=== PATIENT | female | born 1940 | race Caucasian/White ===

== ENCOUNTER 2016-11-30 12:25 | Observation (INO) | payer MEDICARE ==
[2016-11-30] MEDS ORDERED: Zofran 4 MG/2 ML VIAL IV PRN (12:28)
[2016-11-30 12:59] LABS: BASOPHIL % 0.2 % (0.0-0.4); Eosinophil % 1.5 % (0.00-5.0); Granulocytes % 67.8 % (36.0-66.0); Lymphocytes % 23.6 % (24.0-44.0); Mean Cell Volume 89.3 fl (78-100); Mean Corpuscular Hemoglobin 29.4 pg (26-32); Mean Platelet Volume 9.6 fl (6-9.5); Monocytes % 6.9 % (0.0-12.0); Platelet Count 235 K/mm3 (150-450); Red Blood Count 4.12 M/mm3 (4.1-5.4); Red Cell Distribution Width 15.5 % (11.5-14.0); White Blood Count 14.3 K/mm3 (4.0-10.5)
[2016-11-30 13:16] LABS: ANION GAP 11.4 MEQ/L (5-15); BILIRUBIN,TOTAL 0.8 mg/dL (0.2-1.0); Potassium 3.8 mEq/L (3.5-5.1); Total Protein 8.2 gm/dL (6.4-8.2)
[2016-11-30 13:19] LABS: LIPASE 163 U/L (73-393)
[2016-11-30 13:20] LABS: TROPONIN < 0.017 ng/ml (0.000-0.056)
[2016-11-30 13:51] LABS: Collection Type CLEAN CATCH
[2016-11-30 13:52] LABS: COMPLETE URINE MICROSCOPIC? YES
[2016-11-30] MEDS: Sodium Chloride 0.9% 1000 ML 1,000 ML IV SCH (14:03)
[2016-11-30] MEDS: MORPHINE SULFATE 2 MG INJ IV PRN ×3 (14:03→18:31)
[2016-11-30 15:23] LABS: Epithelial Cells MANY /HPF (FEW)
[2016-11-30 15:24] LABS: Bacteria MODERATE /HPF (NEGATIVE)
[2016-11-30] MEDS: FLAGYL 500 MG IVPB 100 ML IV SCH ×2 (15:37→22:13)
[2016-11-30] MEDS: BUMEX 1 MG PO SCH (17:14)
--- NOTE | 2016-11-30 19:59 | XRAY ---
Indication: Right lower quadrant pain. Constipation. Multiple contiguous axial images obtained through the abdomen and pelvis without contrast as ordered. Comparison: None Minimal left lung base atelectasis/scarring. Right lung base clear. Heart is not enlarged. Noncontrasted stomach and bowel loops appear nonobstructed. There is intraluminal hyperdensity in the distal small bowel either from barium study versus ingested medication. Normal appendix. Moderate diffuse scattered colonic fecal debris. Also scattered diverticulosis without diverticulitis. No free fluid/air. Previous hysterectomy. 1 cm left lower pole renal cyst and calcified splenic granuloma. Remaining liver, gallbladder, pancreas, spleen, adrenal glands, kidneys, ureters, and bladder appear unremarkable for noncontrast exam. Mild aortoiliac calcifications without AAA. Osseous structures intact with mild osteopenia and minimal degenerative changes throughout the spine. Impression: 1. Fecal stasis without obstruction. Diffuse diverticulosis without diverticulitis. 2. Left renal cyst. 3. No acute intra-abdominal/pelvic abnormalities on this noncontrast exam. CTDI 22.77
[2016-11-30] MEDS: SUBLIMAZE 100 MCG/2 ML IV PRN (20:12)
[2016-11-30] MEDS: Klor Con 10 MEQ PO SCH (22:13)
[2016-11-30] MEDS: MAG-OX 400 PO SCH (22:13)
[2016-12-01] MEDS: Sodium Chloride 0.9% 1000 ML 1,000 ML IV SCH ×3 (01:44→22:54)
[2016-12-01] MEDS: SUBLIMAZE 100 MCG/2 ML IV PRN ×4 (02:27→21:17)
[2016-12-01] MEDS: FLAGYL 500 MG IVPB 100 ML IV SCH ×3 (06:07→21:17)
[2016-12-01] MEDS: MAG-OX 400 PO SCH ×2 (08:31→21:17)
[2016-12-01] MEDS: Klor Con 10 MEQ PO SCH ×2 (08:31→21:17)
[2016-12-01] MEDS: BUMEX 1 MG PO SCH ×2 (08:31→17:13)
[2016-12-01] MEDS: Glucotrol Xl 2.5 MG PO SCH (08:31)
[2016-12-01] MEDS: Protonix 40MG Tablet PO SCH (08:40)
[2016-12-01] MEDS: Colace 100 MG PO SCH (08:40)
[2016-12-01] MEDS: SYNTHROID 100 MCG PO SCH (08:40)
[2016-12-01] MEDS: ELIQUIS PO SCH (08:40)
[2016-12-01] MEDS: SYNTHROID 25 MCG PO SCH (08:40)
[2016-12-01] MEDS: CLARITIN 10 MG PO SCH (08:40)
[2016-12-01] MEDS: ZYLOPRIM 300 MG PO SCH (08:40)
[2016-12-01] MEDS: Zaroxolyn 2.5 MG PO SCH (08:41)
[2016-12-01] MEDS: Zestril 10 MG PO SCH (08:42)
[2016-12-01] MEDS ORDERED: NON-FORMULARY ITEM (Docusate Sodium [Stool Softener] 50 MG) PO SCH (10:00)
[2016-12-01] MEDS ORDERED: NON-FORMULARY ITEM (Levothyroxine Sodium [Synthroid] 200 MCG) PO SCH (10:00)
[2016-12-01] MEDS ORDERED: NON-FORMULARY ITEM (Apixaban [Eliquis] 2.5 MG) PO SCH (10:00)
--- NOTE | 2016-12-01 17:19 | PCM.HP ---
History of Present Illness - Chief Complaint Chief Complaint: c/o abdominal pain Date: 11/30/16 History of Present Illness: is a 76 year old female.was admitted with right upper quadrant abdominal pain - Review of Systems Constitutional: No Fever, No Chills Eyes: No Symptoms Ears, Nose, & Throat: No Symptoms Respiratory: No Cough, No Short Of Breath Cardiac: No Chest Pain, No Edema, No Syncope Abdominal/Gastrointestinal: Abdominal Pain, No Nausea, No Vomiting, No Diarrhea Genitourinary Symptoms: No Dysuria Musculoskeletal: No Back Pain, No Neck Pain Skin: No Rash Neurological: No Dizziness, No Focal Weakness, No Sensory Changes Psychological: No Symptoms Endocrine: No Symptoms Hematologic/Lymphatic: No Symptoms Immunological/Allergic: No Symptoms Medications & Allergies Home Medications: Home Medication List Allopurinol 300 mg [Zyloprim 300 mg] 300 mg PO DAILY 11/30/16 [History Confirmed 11/30/16] Apixaban [Eliquis] 2.5 mg PO DAILY 11/30/16 [History Confirmed 11/30/16] Bumetanide 1 mg [Bumex 1 mg] 1 mg PO BID 11/30/16 [History Confirmed 11/30] Docusate Sodium [Stool Softener] 50 mg PO DAILY 11/30/16 [History Confirmed ] Glipizide 2.5 mg [Glucotrol Xl 2.5 MG] 2.5 mg PO DAILY 11/30/16 [History Confirmed 11/30/16] Levothyroxine Sodium [Synthroid] 25 mcg PO DAILY 11/30/16 [History Confirmed ] Levothyroxine Sodium [Synthroid] 200 mcg PO DAILY 11/30/16 [History Confirmed ] Lisinopril 10 mg [Zestril 10 MG] 10 mg PO DAILY 11/30/16 [History Confirmed 11/30/16] Loratadine 10 mg [Claritin 10 mg] 10 mg PO DAILY 11/30/16 [History Confirmed 11/30/16] Magnesium Oxide 400 mg [Mag-Ox 400] 400 mg PO BID 11/30/16 [History Confirmed 11/30/16] Metolazone 2.5 mg [Zaroxolyn 2.5 MG] 2.5 mg PO DAILY 11/30/16 [History Confirmed 11/30/16] PANTOPRAZOLE 40 mg Tablet [Protonix 40MG Tablet] 40 mg PO DAILY 11/30/16 [ History Confirmed 11/30/16] Potassium Chloride [Klor-Con 10] 10 meq PO BID 11/30/16 [History Confirmed 11/30] Allergies/Adverse Reactions: Allergies Allergy/AdvReac Type Severity Reaction Status Date / Time ofloxacin [From Floxin] Allergy Verified 03/11/16 01:02 Sulfa (Sulfonamide Allergy Verified 03/11/16 01:02 Antibiotics) [Sulfa(Sulfonamide Antibiotics)] - Past Medical History Past Medical History: Yes Neurological History: Epilepsy, Peripheral Neuropathy ENT History: Cataracts, Other Cardiac History: Congestive Heart Failure, Hypertension, Myocardial Infarction ( [place]) Respiratory History: CHF, COPD, Emphysema, Pulmonary Embolism Endocrine Medical History: Diabetes Type II, Hypothyroidism Musculoskelatal History: Arthritis, Osteoarthritis GI Medical History: Diverticulosis, Hemorrhoids, Hernia History: Renal Disease Pyscho-Social History: No Pertinent History Reproductive Disorders: No Pertinent History Comment: 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 - Female History Are you now?: No - Past Surgical History Past Surgical History: Yes Neuro Surgical History: No Pertinent History Cardiac History: Cardiac Catheterization Respiratory Surgery: No Pertinent History GI Surgical History: No Pertinent History Genitourinary Surgical Hx: No Pertinent History Musculskeletal Surgical Hx: No Pertinent History Female Surgical History: Hysterectomy, Lumpectomy Other Surgical History: breast tumor removed, tumor removed from back benign, 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 - Social History Smoking Status: Never smoker Exposure to second hand smoke: Yes Alcohol: None Drug Use: none - Physical Exam Vital Signs: Vital Signs - 24 hr Temp Pulse Resp BP Pulse Ox 12/01/16 16:00 98.4 F 76 20 120/58 97 12/01/16 12:00 99.3 F 78 20 133/63 96 12/01/16 07:09 98.6 F 82 20 123/56 95 12/01/16 04:00 99.1 F 80 18 119/56 98 11/30/16 23:44 98.8 F 81 20 126/63 97 11/30/16 20:00 98.9 F 82 20 127/58 98 General Appearance: no apparent distress, alert Neurologic Exam: alert, oriented x 3, cooperative, normal mood/affect, nml cerebellar function, nml station & gait, sensation nml, No motor deficits Eye Exam: PERRL/EOMI, eyes nml inspection Ears, Nose, Throat Exam: normal ENT inspection, TMs normal, pharynx normal, moist mucous membranes Neck Exam: normal inspection, non-tender, supple, full range of motion Respiratory Exam: normal breath sounds, lungs clear, No respiratory distress Cardiovascular Exam: regular rate/rhythm, normal heart sounds, normal peripheral pulses Gastrointestinal/Abdomen Exam: normal bowel sounds, tenderness, No mass Back Exam: normal inspection, normal range of motion, No CVA tenderness, No vertebral tenderness Extremity Exam: normal inspection, normal range of motion, pelvis stable Skin Exam: normal color, warm, dry, No rash Lymphatic Exam: No adenopathy Results - Labs Lab/Micro Results: Accuchecks Date 12/01/16 Date 12/01/16 Date 12/01/16 Date 11/30/16 Time 16:30 Time 11:30 Time 07:00 Time 22:00 Accucheck Value: 92 Accucheck Value: 157 Accucheck Value: 124 Accucheck Value: 124 Lab Results-Last 24 Hours 11/30/16 11/30/16 Range/Units 12:40 12:40 WBC 14.3 H (4.0-10.5) K/mm3 RBC 4.12 (4.1-5.4) M/mm3 Hgb 12.1 (12.0-16.0) gm/dl Hct 36.8 (35-47) % MCV 89.3 (78-100) fl MCH 29.4 (26-32) pg MCHC 32.9 (32-36) g/dl RDW 15.5 H (11.5-14.0) % Plt Count 235 (150-450) K/mm3 MPV 9.6 H (6-9.5) fl Gran % 67.8 H (36.0-66.0) % Lymphocytes % 23.6 L (24.0-44.0) % Monocytes % 6.9 (0.0-12.0) % Eosinophils % 1.5 (0.00-5.0) % Basophils % 0.2 (0.0-0.4) % Basophils # 0.03 (0-0.4) Sodium 137 (136-145) mEq/L Potassium 3.8 (3.5-5.1) mEq/L Chloride 96 L (98-107) mEq/L Carbon Dioxide 33.0 H (21-32) mEq/L Anion Gap 11.4 (5-15) MEQ/L BUN 32 H (9-20) mg/dL Creatinine 1.55 H (0.55-1.30) mg/dl Estimated GFR 34 ML/MIN Glucose 132 H (70-110) MG/DL Calcium 10.5 H (8.5-10.1) mg/dL Total Bilirubin 0.8 (0.2-1.0) mg/dL AST 19 (15-37) U/L ALT 14 (12-78) U/L Alkaline Phosphatase 76 (46-116) U/L Serum Total Protein 8.2 (6.4-8.2) gm/dL Albumin 4.0 (3.4-5.0) g/dL Accuchecks Date 12/01/16 Date 12/01/16 Date 12/01/16 Date 11/30/16 Time 16:30 Time 11:30 Time 07:00 Time 22:00 Accucheck Value: 92 Accucheck Value: 157 Accucheck Value: 124 Accucheck Value: 124 - Radiology Impressions Radiology Exams & Impressions: Radiology Procedures Category Date Time Status ABDOMEN AND PELVIS W/0 CONTRAS [CT] Stat Exams 11/30/16 12:28 Completed GALLBLADDER [US] Urgent Exams 12/02/16 13:27 Ordered Assessment/Plan (1) Abdominal pain, acute, right upper quadrant Current Visit: Yes Status: Acute Code(s): R10.11 - RIGHT UPPER QUADRANT PAIN (2) RLQ abdominal pain Current Visit: Yes Status: Acute (3) Diabetic neuropathy associated with type 2 diabetes mellitus Current Visit: No Status: Chronic Qualifiers: Diabetes mellitus complication detail: diabetic polyneuropathy Qualified Code(s): E11.42 - Type 2 diabetes mellitus with diabetic polyneuropathy Code(s): E11.40 - TYPE 2 DIABETES MELLITUS WITH DIABETIC NEUROPATHY, UNSP
--- NOTE | 2016-12-01 17:23 | PCM.NOTE ---
Date and Time: 12/01/16 1722 Subjective Assessment: abdominal pain little better - Review of Systems Constitutional: No Fever, No Chills Eyes: No Symptoms Ears, Nose, & Throat: No Symptoms Respiratory: No Cough, No Short Of Breath Cardiac: No Chest Pain, No Edema, No Syncope Abdominal/Gastrointestinal: Abdominal Pain, No Nausea, No Vomiting, No Diarrhea Genitourinary Symptoms: No Dysuria Musculoskeletal: No Back Pain, No Neck Pain Skin: No Rash Neurological: No Dizziness, No Focal Weakness, No Sensory Changes Psychological: No Symptoms Endocrine: No Symptoms Hematologic/Lymphatic: No Symptoms Immunological/Allergic: No Symptoms Objective Exam General Appearance: no apparent distress, alert Neurologic Exam: alert, oriented x 3, cooperative, normal mood/affect, nml cerebellar function, sensation nml, No motor deficits Skin Exam: normal color, warm, dry Eye Exam: PERRL, EOMI, eyes nml inspection Ears, Nose, Throat Exam: normal ENT inspection, pharynx normal, moist mucous membranes Neck Exam: normal inspection, non-tender, supple, full range of motion Respiratory Exam: normal breath sounds, lungs clear, No respiratory distress Cardiovascular Exam: regular rate/rhythm, normal heart sounds Gastrointestinal/Abdomen Exam: soft, tenderness, No mass Extremity Exam: normal inspection, normal range of motion Back Exam: normal inspection, normal range of motion, No CVA tenderness, No vertebral tenderness Pelvic Exam: deferred Rectal Exam: deferred OBJECTIVE DATA Vital Signs: Vital Signs - 24 hr Temp Pulse Resp BP Pulse Ox 12/01/16 16:00 98.4 F 76 20 120/58 97 12/01/16 12:00 99.3 F 78 20 133/63 96 12/01/16 07:09 98.6 F 82 20 123/56 95 12/01/16 04:00 99.1 F 80 18 119/56 98 11/30/16 23:44 98.8 F 81 20 126/63 97 11/30/16 20:00 98.9 F 82 20 127/58 98 Pain Assessment - Last Documented Pain Intensity 2 Pain Scale Used 0-10 Pain Scale Intake and Output: Intake & Output 11/29/16 11/30/16 12/01/16 12/02/16 11:59 11:59 11:59 11:59 Intake Total 2757 480 Output Total 1100 Balance 1657 480 Weight 86.137 kg Lab Results: Accuchecks Date 12/01/16 Date 12/01/16 Date 12/01/16 Date 11/30/16 Time 16:30 Time 11:30 Time 07:00 Time 22:00 Accucheck Value: 92 Accucheck Value: 157 Accucheck Value: 124 Accucheck Value: 124 Lab Results-Last 24 Hours 11/30/16 11/30/16 Range/Units 12:40 12:40 WBC 14.3 H (4.0-10.5) K/mm3 RBC 4.12 (4.1-5.4) M/mm3 Hgb 12.1 (12.0-16.0) gm/dl Hct 36.8 (35-47) % MCV 89.3 (78-100) fl MCH 29.4 (26-32) pg MCHC 32.9 (32-36) g/dl RDW 15.5 H (11.5-14.0) % Plt Count 235 (150-450) K/mm3 MPV 9.6 H (6-9.5) fl Gran % 67.8 H (36.0-66.0) % Lymphocytes % 23.6 L (24.0-44.0) % Monocytes % 6.9 (0.0-12.0) % Eosinophils % 1.5 (0.00-5.0) % Basophils % 0.2 (0.0-0.4) % Basophils # 0.03 (0-0.4) Sodium 137 (136-145) mEq/L Potassium 3.8 (3.5-5.1) mEq/L Chloride 96 L (98-107) mEq/L Carbon Dioxide 33.0 H (21-32) mEq/L Anion Gap 11.4 (5-15) MEQ/L BUN 32 H (9-20) mg/dL Creatinine 1.55 H (0.55-1.30) mg/dl Estimated GFR 34 ML/MIN Glucose 132 H (70-110) MG/DL Calcium 10.5 H (8.5-10.1) mg/dL Total Bilirubin 0.8 (0.2-1.0) mg/dL AST 19 (15-37) U/L ALT 14 (12-78) U/L Alkaline Phosphatase 76 (46-116) U/L Serum Total Protein 8.2 (6.4-8.2) gm/dL Albumin 4.0 (3.4-5.0) g/dL Radiology Exams: Radiology Procedures Category Date Time Status ABDOMEN AND PELVIS W/0 CONTRAS [CT] Stat Exams 11/30/16 12:28 Completed GALLBLADDER [US] Urgent Exams 12/02/16 13:27 Ordered Multi-Disciplinary Progress Notes: Multi-Disciplinary Progress Notes 12/01/16 02:21 Respiratory Note by William Lam EKG WAS DONE ON DAY SHIFT 11/30/16 FOR THIS PT BUT AN ORDER WAS NOT ENTERED. I FOUND THE ERROR WHILE DOING CHARGES ON 12/01/16. I PLACED AN ORDER AND COMPLETED IT SO A CHARGE WOULD DROP. Initialized on 12/01/16 02:21 - END OF NOTE Assessment/Plan (1) Abdominal pain, acute, right upper quadrant Current Visit: Yes Status: Acute Assessment & Plan: improving Chief Complaint Diagnosis c/o abdominal pain Admission Date Date 11/30/16 Allergies Allergy/AdvReac Type Severity Reaction Status Date / Time ofloxacin [From Floxin] Allergy Verified 03/11/16 01:02 Sulfa (Sulfonamide Allergy Verified 03/11/16 01:02 Antibiotics) [Sulfa(Sulfonamide Antibiotics)] Vital Signs (Last 24 hours) Temp Pulse Resp BP Pulse Ox 12/01/16 16:00 98.4 F 76 20 120/58 97 12/01/16 12:00 99.3 F 78 20 133/63 96 12/01/16 07:09 98.6 F 82 20 123/56 95 12/01/16 04:00 99.1 F 80 18 119/56 98 11/30/16 23:44 98.8 F 81 20 126/63 97 11/30/16 20:00 98.9 F 82 20 127/58 98 Home Medications Medication Instructions Recorded Confirmed Last Taken Type Allopurinol 300 mg [Zyloprim 300 mg PO DAILY 11/30/16 11/30/16 11/30/16 History 300 mg] Apixaban [Eliquis] 2.5 mg PO DAILY 11/30/16 11/30/16 11/30/16 History Bumetanide 1 mg [Bumex 1 mg] 1 mg PO BID 11/30/16 11/30/16 11/30/16 History Docusate Sodium [Stool Softener] 50 mg PO DAILY 11/30/16 11/30/16 11/30/16 History Glipizide 2.5 mg [Glucotrol Xl 2.5 mg PO DAILY 11/30/16 11/30/16 11/30/16 History 2.5 MG] Levothyroxine Sodium [Synthroid] 25 mcg PO DAILY 11/30/16 11/30/16 11/30/16 History Levothyroxine Sodium [Synthroid] 200 mcg PO DAILY 11/30/16 11/30/16 11/30/16 History Lisinopril 10 mg [Zestril 10 10 mg PO DAILY 11/30/16 11/30/16 11/30/16 History MG] Loratadine 10 mg [Claritin 10 10 mg PO DAILY 11/30/16 11/30/16 11/30/16 History mg] Magnesium Oxide 400 mg [Mag-Ox 400 mg PO BID 11/30/16 11/30/16 11/30/16 History 400] Metolazone 2.5 mg [Zaroxolyn 2.5 2.5 mg PO DAILY 11/30/16 11/30/16 11/30/16 History MG] PANTOPRAZOLE 40 mg Tablet 40 mg PO DAILY 11/30/16 11/30/16 11/30/16 History [Protonix 40MG Tablet] Potassium Chloride [Klor-Con 10] 10 meq PO BID 11/30/16 11/30/16 11/30/16 History Current Medications Generic Name Dose Route Start Last Admin Trade Name Freq PRN Reason Stop Dose Admin Allopurinol 300 mg 12/01/16 10:00 12/01/16 08:40 Zyloprim 300 Mg PO 12/31/16 09:59 300 mg DAILY NKECHI Administration Apixaban 2.5 mg 12/01/16 10:00 12/01/16 08:40 Eliquis PO 12/31/16 09:59 2.5 mg DAILY NKECHI Administration Bumetanide 1 mg 11/30/16 17:00 12/01/16 17:13 Bumex 1 Mg PO 12/30/16 16:59 1 mg BID DIURETIC NKECHI Administration Docusate Sodium 100 mg 12/01/16 10:00 12/01/16 08:40 Colace 100 Mg PO 12/31/16 09:59 100 mg DAILY NKECHI Administration Fentanyl Citrate 50 mcg 11/30/16 20:04 12/01/16 14:56 Sublimaze 100 Mcg/2 Ml IV 12/05/16 20:03 50 mcg Q6H PRN PRN Administration PAIN Glipizide 2.5 mg 12/01/16 10:00 12/01/16 08:31 Glucotrol Xl 2.5 Mg PO 12/31/16 09:59 2.5 mg DAILY NKECHI Administration Sodium Chloride 1,000 mls @ 100 mls/hr 11/30/16 12:30 12/01/16 12:03 Sodium Chloride 0.9% 1000 Ml IV 12/30/16 12:29 100 mls/hr .Q10H NKECHI Administration Metronidazole 100 mls @ 100 mls/hr 11/30/16 16:00 12/01/16 14:11 Flagyl 500 Mg Ivpb IV 12/30/16 15:59 100 mls/hr Q8HT NKECHI Administration Levothyroxine Sodium 25 mcg 12/01/16 10:00 12/01/16 08:40 Synthroid 25 Mcg PO 12/31/16 09:59 25 mcg DAILY NKECHI Administration Levothyroxine Sodium 200 mcg 12/01/16 10:00 12/01/16 08:40 Synthroid 100 Mcg PO 12/31/16 09:59 200 mcg DAILY NKECHI Administration Lisinopril 10 mg 12/01/16 10:00 12/01/16 08:42 Zestril 10 Mg PO 12/31/16 09:59 10 mg DAILY NKECHI Administration Loratadine 10 mg 12/01/16 10:00 12/01/16 08:40 Claritin 10 Mg PO 12/31/16 09:59 10 mg DAILY NKECHI Administration Magnesium Oxide 400 mg 11/30/16 22:00 12/01/16 08:31 Mag-Ox 400 PO 12/30/16 21:59 400 mg BID NKECHI Administration Metolazone 2.5 mg 12/01/16 10:00 12/01/16 08:41 Zaroxolyn 2.5 Mg PO 12/31/16 09:59 2.5 mg DAILY NEKCHI Administration Ondansetron HCl 4 mg 11/30/16 12:28 Zofran 4 Mg/2 Ml Vial IV 12/30/16 12:27 Q4H PRN PRN NAUSEA/VOMITING Pantoprazole Sodium 40 mg 12/01/16 10:00 12/01/16 08:40 Protonix 40mg Tablet PO 12/31/16 09:59 40 mg DAILY NKECHI Administration Potassium Chloride 10 meq 11/30/16 22:00 12/01/16 08:31 Klor Con 10 Meq PO 12/30/16 21:59 10 meq BID NKECHI Administration Discontinued Medications Generic Name Dose Route Start Last Admin Trade Name Freq PRN Reason Stop Dose Admin Morphine Sulfate 2 mg 11/30/16 12:28 11/30/16 18:31 Morphine Sulfate 2 Mg Inj IV 12/05/16 12:27 2 mg Q2H PRN PRN Administration PAIN Intake & Output (Last 24 hours) 11/29/16 11/30/16 12/01/16 12/02/16 11:59 11:59 11:59 11:59 Intake Total 2757 480 Output Total 1100 Balance 1657 480 Weight 86.137 kg Microbiology Results (Last 24 hours) 11/30/16 12:45 Blood - Pending 11/30/16 12:45 Blood Blood Culture - Pending 11/30/16 12:40 Blood - Pending 11/30/16 12:40 Blood Blood Culture - Pending Laboratory Results (Last 24 hours) 11/30/16 11/30/16 12:40 12:40 WBC 14.3 H RBC 4.12 Hgb 12.1 Hct 36.8 MCV 89.3 MCH 29.4 MCHC 32.9 RDW 15.5 H Plt Count 235 MPV 9.6 H Gran % 67.8 H Lymphocytes % 23.6 L Monocytes % 6.9 Eosinophils % 1.5 Basophils % 0.2 Basophils # 0.03 Sodium 137 Potassium 3.8 Chloride 96 L Carbon Dioxide 33.0 H Anion Gap 11.4 BUN 32 H Creatinine 1.55 H Estimated GFR 34 Glucose 132 H Calcium 10.5 H Total Bilirubin 0.8 AST 19 ALT 14 Alkaline Phosphatase 76 Serum Total Protein 8.2 Albumin 4.0 Orders (Last 24 hours) Category Date Time Status Consult Surgery ROUTINE Cons 12/01/16 13:24 Active Clear Liquid Diet 12/01/16 Dinner Active NPO Diet 12/02/16 00:01 Active GALLBLADDER [US] Urgent Exams 12/02/16 13:27 Ordered Allopurinol 300 mg [Zyloprim 300 mg] Med 12/01/16 10:00 Active 300 mg PO DAILY Apixaban [Eliquis] Med 12/01/16 10:00 Active 2.5 mg PO DAILY Bumetanide 1 mg [Bumex 1 mg] Med 11/30/16 17:00 Active 1 mg PO BID DIURETIC Docusate Sodium 100 mg [Colace 100 MG] Med 12/01/16 10:00 Active 100 mg PO DAILY Fentanyl Citrate 100 Mcg/2 ml* [Sublimaze 100 Mcg/2 ml* Med 11/30/16 20:04 Active ] 50 mcg IV Q6H PRN PRN Glipizide 2.5 mg [Glucotrol Xl 2.5 MG] Med 12/01/16 10:00 Active 2.5 mg PO DAILY Levothyroxine Sodium 100 Mcg [Synthroid 100 Mcg] Med 12/01/16 10:00 Active 200 mcg PO DAILY Levothyroxine Sodium 25 Mcg [Synthroid 25 Mcg] Med 12/01/16 10:00 Active 25 mcg PO DAILY Lisinopril 10 mg [Zestril 10 MG] Med 12/01/16 10:00 Active 10 mg PO DAILY Loratadine 10 mg [Claritin 10 mg] Med 12/01/16 10:00 Active 10 mg PO DAILY Magnesium Oxide 400 mg [Mag-Ox 400] Med 11/30/16 22:00 Active 400 mg PO BID Metolazone 2.5 mg [Zaroxolyn 2.5 MG] Med 12/01/16 10:00 Active 2.5 mg PO DAILY PANTOPRAZOLE 40 mg Tablet [Protonix 40MG Tablet] Med 12/01/16 10:00 Active 40 mg PO DAILY Potassium Chloride 10 Meq Tab* [Klor Con 10 MEQ] Med 11/30/16 22:00 Active 10 meq PO BID Patient Care Notes (Last 24 hours) 12/01/16 16:29 Nursing Note by Savanna Shannon Dr. rounded at approx 1330, pt made NPO until seen by surgeon and NPO after midnight for new order for abd US, per radiology pt has to be NPO x 8 hours for US so it will be done in the morning. pt and daughter in agreement with plan. see MAR for prn pain med. Addendum entered by Savanna Shannon 12/01/16 16:47: pt had a moderate hard BM and then a soft brown BM, she states she feels a little better. Initialized on 12/01/16 16:29 - END OF NOTE 12/01/16 10:44 Nursing Note by Savanna Shannon pt c/o right abd pain, "a little better, but still bad". see MAR for prn given , see CT results, prune/OJ/apple juice given, nurse spoke with nurse at [facility], she said Dr. Green would round at lunchtime, nurse discussed with pt re: asking MD for increased pain med at that time, pt in agreement with this. pt drinking juice, daughter in room. Initialized on 12/01/16 10:44 - END OF NOTE 12/01/16 09:14 Nursing Note by Savanna Shannon see AM medsurg assessment, pts daughter (Shellie) in room, states she called the office of Dr. Flanagan in [place] to let them know pt is in the hospital and will not make her radiation appt today for left toe/foot. 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 see skin assessment. see MAR for prn pain meds, pt up in chair. Initialized on 12/01/16 09:14 - END OF NOTE 12/01/16 02:21 Respiratory Note by William Lam EKG WAS DONE ON DAY SHIFT 11/30/16 FOR THIS PT BUT AN ORDER WAS NOT ENTERED. I FOUND THE ERROR WHILE DOING CHARGES ON 12/01/16. I PLACED AN ORDER AND COMPLETED IT SO A CHARGE WOULD DROP. Initialized on 12/01/16 02:21 - END OF NOTE Code(s): R10.11 - RIGHT UPPER QUADRANT PAIN (2) RLQ abdominal pain Current Visit: Yes Status: Acute (3) Diabetic neuropathy associated with type 2 diabetes mellitus Current Visit: No Status: Chronic Qualifiers: Diabetes mellitus complication detail: diabetic polyneuropathy Qualified Code(s): E11.42 - Type 2 diabetes mellitus with diabetic polyneuropathy Code(s): E11.40 - TYPE 2 DIABETES MELLITUS WITH DIABETIC NEUROPATHY, UNSP
[2016-12-02] MEDS: SUBLIMAZE 100 MCG/2 ML IV PRN ×2 (04:09→10:21)
[2016-12-02 04:37] VITALS: O2SAT 97
[2016-12-02] MEDS: FLAGYL 500 MG IVPB 100 ML IV SCH ×2 (05:41→14:16)
--- NOTE | 2016-12-02 08:22 | CONS ---
CONSULT DATE: 12/01/2016 HISTORY: The patient is a 76 year-old female patient of Dr. Green who came in she thought she had diverticulitis. She had acute right lateral abdominal wall area near her rib area pain. It has been going on for a while worse with some deep breath and coughing. No difference with eating episodes. She had diverticulitis in the past so she was concerned about that and came in. Temperature 98.8F earlier, blood pressure 126/62, pulse 81. PAST MEDICAL HISTORY: Gout, hypothyroidism, PAST SURGICAL HISTORY: I think she says she had a hysterectomy before. She still has her gallbladder. She did have EGD and colonoscopy by Dr. Palafox back March 2016 for bleeding lesions in the colon apparently. She denies any current bloody stool. Her pain is better after a bowel movement. MEDICATIONS: Allopurinol, Eliquis, Bumex, stool softener, Glucotrol, Synthroid, Zestril, Claritin, magnesium oxide, Zaroxolyn, Protonix, Klor-Con. ALLERGIES: SULFA, OFLOXACIN. FAMILY HISTORY: Negative in regards to this problem. SOCIAL HISTORY: No smoking or alcohol abuse currently. REVIEW OF SYSTEMS: Ten systems reviewed negative or noncontributory as noted above and per admission assessment, history and physical on the chart. She does wear glasses. She is overweight. She does have a significant history of cardiomyopathy according to the patient and followed by a water registrar in [place]. There is not anything they can to do to improve that according to the patient. PHYSICAL EXAMINATION: GENERAL: A chronically ill female in no acute distress. HEENT: Sclera nonicteric. NECK: No JVD. CHEST: Equal excursion. CVS: Regular rhythm and pulse. ABDOMEN: Obese. She is tender right on the abdominal wall lateral on the right. Again CT scan did not show any obvious acute findings with the gallbladder. She did have EGD and colonoscopy not that long ago not showing any obvious colon lesions or colon masses. No peritoneal signs. EXTREMITIES: No significant edema. NEURO: Alert, moving extremities grossly symmetrically. LAB DATA AND TESTS: She had CT scan show fecal stasis, no obstruction. She had diverticulosis but no acute diverticulitis. She had renal cysts. No acute abdominal findings. Gallbladder was felt to be normal per the radiologist. IMPRESSION: Abdominal wall right upper quadrant, right lateral flank area aches and pains. Seems more on palpation of the abdominal wall unclear etiology. It could be anything from musculoskeletal versus gastritis, duodenitis, peptic ulcer disease versus even biliary colic, colitis or other etiology. No emergent surgery necessary at this time. I do feel that she can continue medical management at this point. She has a gallbladder ultrasound that is pending. If she fails to improve consider repeating the upper endoscopy but at this point she said she is feeling better after bowel movement. No emergent surgery necessary. Continue medical management at this point. Gallbladder ultrasound pending. This patient is seen for Dr. Raymundo who is statistical consultant for group when consulted yesterday. I stopped by here on my way back from [facility].
--- NOTE | 2016-12-02 10:01 | XRAY ---
Indication: Right upper quadrant pain. Two-dimensional right upper quadrant abdominal sonogram performed. Comparison: None Gallbladder partially contracted without gallstones, wall thickening, or pericholecystic fluid. Common bile duct measures 4.5 mm. Remaining visualized portions of the liver and pancreas appear sonographically unremarkable. No ascites. Right kidney measures 11.6 cm in length with cortical thinning. No suspicious renal mass or hydronephrosis. Impression: Negative gallbladder sonogram. Incidental right renal cortical thinning.
[2016-12-02] MEDS: Sodium Chloride 0.9% 1000 ML 1,000 ML IV SCH ×2 (10:07→17:19)
[2016-12-02] MEDS: SYNTHROID 100 MCG PO SCH (10:11)
[2016-12-02] MEDS: CLARITIN 10 MG PO SCH (10:11)
[2016-12-02] MEDS: Klor Con 10 MEQ PO SCH (10:11)
[2016-12-02] MEDS: SYNTHROID 25 MCG PO SCH (10:11)
[2016-12-02] MEDS: BUMEX 1 MG PO SCH ×2 (10:11→16:36)
[2016-12-02] MEDS: Zaroxolyn 2.5 MG PO SCH (10:11)
[2016-12-02] MEDS: Colace 100 MG PO SCH (10:11)
[2016-12-02] MEDS: MAG-OX 400 PO SCH (10:11)
[2016-12-02] MEDS: Protonix 40MG Tablet PO SCH (10:11)
[2016-12-02] MEDS: Zestril 10 MG PO SCH (10:11)
[2016-12-02] MEDS: ZYLOPRIM 300 MG PO SCH (10:11)
[2016-12-02] MEDS: Glucotrol Xl 2.5 MG PO SCH (10:12)
[2016-12-02] MEDS: ELIQUIS PO SCH (14:17)
[2016-12-02 16:22] VITALS: BP 116/56; PULSE 86
--- NOTE | 2016-12-02 16:34 | PCM.DS ---
Discharge Summary Date of Admission: 11/30/16 12:25 Admitting Physician: TRINH MINAYA Consults: Consults on Case 12/01/16 13:24 Consult Surgery ROUTINE Primary Care Provider: TRINH MINAYA Allergies Allergies ofloxacin [From Floxin] Allergy (Verified 03/11/16 01:02) Sulfa (Sulfonamide Antibiotics) [Sulfa(Sulfonamide Antibiotics)] Allergy ( Verified 03/11/16 01:02) Hospital Summary - Hospital Course Hospital Course: Chief Complaint Diagnosis c/o abdominal pain Admission Date Date 11/30/16 Allergies Allergy/AdvReac Type Severity Reaction Status Date / Time ofloxacin [From Floxin] Allergy Verified 03/11/16 01:02 Sulfa (Sulfonamide Allergy Verified 03/11/16 01:02 Antibiotics) [Sulfa(Sulfonamide Antibiotics)] Vital Signs (Last 24 hours) Temp Pulse Resp BP Pulse Ox 12/02/16 16:21 97.7 F 86 20 116/56 97 12/02/16 12:22 97.8 F 67 20 115/63 97 12/02/16 07:21 97.6 F 66 20 126/58 97 12/02/16 04:09 98.4 F 12/02/16 04:00 98.4 F 67 16 134/60 97 12/02/16 00:00 98.4 F 71 17 125/53 94 L 12/01/16 20:00 98.5 F 73 18 120/56 98 Home Medications Medication Instructions Recorded Confirmed Last Taken Type Allopurinol 300 mg [Zyloprim 300 mg PO DAILY 11/30/16 11/30/16 11/30/16 History 300 mg] Apixaban [Eliquis] 2.5 mg PO DAILY 11/30/16 11/30/16 11/30/16 History Bumetanide 1 mg [Bumex 1 mg] 1 mg PO BID 11/30/16 11/30/16 11/30/16 History Docusate Sodium [Stool Softener] 50 mg PO DAILY 11/30/16 11/30/16 11/30/16 History Glipizide 2.5 mg [Glucotrol Xl 2.5 mg PO DAILY 11/30/16 11/30/16 11/30/16 History 2.5 MG] Levothyroxine Sodium [Synthroid] 25 mcg PO DAILY 11/30/16 11/30/16 11/30/16 History Levothyroxine Sodium [Synthroid] 200 mcg PO DAILY 11/30/16 11/30/16 11/30/16 History Lisinopril 10 mg [Zestril 10 10 mg PO DAILY 11/30/16 11/30/16 11/30/16 History MG] Loratadine 10 mg [Claritin 10 10 mg PO DAILY 11/30/16 11/30/16 11/30/16 History mg] Magnesium Oxide 400 mg [Mag-Ox 400 mg PO BID 11/30/16 11/30/16 11/30/16 History 400] Metolazone 2.5 mg [Zaroxolyn 2.5 2.5 mg PO DAILY 11/30/16 11/30/16 11/30/16 History MG] PANTOPRAZOLE 40 mg Tablet 40 mg PO DAILY 11/30/16 11/30/16 11/30/16 History [Protonix 40MG Tablet] Potassium Chloride [Klor-Con 10] 10 meq PO BID 11/30/16 11/30/16 11/30/16 History Metronidazole [Flagyl] 500 mg PO TID #15 tablet 12/02/16 Unknown Rx Current Medications Generic Name Dose Route Start Last Admin Trade Name Freq PRN Reason Stop Dose Admin Allopurinol 300 mg 12/01/16 10:00 12/02/16 10:11 Zyloprim 300 Mg PO 12/31/16 09:59 300 mg DAILY NKECHI Administration Apixaban 2.5 mg 12/01/16 10:00 12/02/16 14:17 Eliquis PO 12/31/16 09:59 2.5 mg DAILY NKECHI Administration Bumetanide 1 mg 11/30/16 17:00 12/02/16 10:11 Bumex 1 Mg PO 12/30/16 16:59 1 mg BID DIURETIC NKECHI Administration Docusate Sodium 100 mg 12/01/16 10:00 12/02/16 10:11 Colace 100 Mg PO 12/31/16 09:59 100 mg DAILY NKECHI Administration Fentanyl Citrate 50 mcg 11/30/16 20:04 12/02/16 10:21 Sublimaze 100 Mcg/2 Ml IV 12/05/16 20:03 50 mcg Q6H PRN PRN Administration PAIN Glipizide 2.5 mg 12/01/16 10:00 12/02/16 10:12 Glucotrol Xl 2.5 Mg PO 12/31/16 09:59 2.5 mg DAILY NKECHI Administration Sodium Chloride 1,000 mls @ 100 mls/hr 11/30/16 12:30 12/02/16 10:07 Sodium Chloride 0.9% 1000 Ml IV 12/30/16 12:29 100 mls/hr .Q10H NKECHI Administration Metronidazole 100 mls @ 100 mls/hr 11/30/16 16:00 12/02/16 14:16 Flagyl 500 Mg Ivpb IV 12/30/16 15:59 100 mls/hr Q8HT NKECHI Administration Levothyroxine Sodium 25 mcg 12/01/16 10:00 12/02/16 10:11 Synthroid 25 Mcg PO 12/31/16 09:59 25 mcg DAILY NKECHI Administration Levothyroxine Sodium 200 mcg 12/01/16 10:00 12/02/16 10:11 Synthroid 100 Mcg PO 12/31/16 09:59 200 mcg DAILY NKECHI Administration Lisinopril 10 mg 12/01/16 10:00 12/02/16 10:11 Zestril 10 Mg PO 12/31/16 09:59 10 mg DAILY NKECHI Administration Loratadine 10 mg 12/01/16 10:00 12/02/16 10:11 Claritin 10 Mg PO 12/31/16 09:59 10 mg DAILY NKECHI Administration Magnesium Oxide 400 mg 11/30/16 22:00 12/02/16 10:11 Mag-Ox 400 PO 12/30/16 21:59 400 mg BID NKECHI Administration Metolazone 2.5 mg 12/01/16 10:00 12/02/16 10:11 Zaroxolyn 2.5 Mg PO 12/31/16 09:59 2.5 mg DAILY NKECHI Administration Ondansetron HCl 4 mg 11/30/16 12:28 Zofran 4 Mg/2 Ml Vial IV 12/30/16 12:27 Q4H PRN PRN NAUSEA/VOMITING Pantoprazole Sodium 40 mg 12/01/16 10:00 12/02/16 10:11 Protonix 40mg Tablet PO 12/31/16 09:59 40 mg DAILY NKECHI Administration Potassium Chloride 10 meq 11/30/16 22:00 12/02/16 10:11 Klor Con 10 Meq PO 12/30/16 21:59 10 meq BID NKECHI Administration Discontinued Medications Generic Name Dose Route Start Last Admin Trade Name Freq PRN Reason Stop Dose Admin Morphine Sulfate 2 mg 11/30/16 12:28 11/30/16 18:31 Morphine Sulfate 2 Mg Inj IV 12/05/16 12:27 2 mg Q2H PRN PRN Administration PAIN Intake & Output (Last 24 hours) 11/30/16 12/01/16 12/02/16 12/03/16 11:59 11:59 11:59 11:59 Intake Total 2757 700 0 Output Total 1100 900 200 Balance 1657 -200 -200 Weight 86.137 kg Microbiology Results (Last 24 hours) 11/30/16 12:45 Blood - Pending 11/30/16 12:45 Blood Blood Culture - Preliminary NO GROWTH TO DATE 11/30/16 12:40 Blood - Pending 11/30/16 12:40 Blood Blood Culture - Preliminary NO GROWTH TO DATE Orders (Last 24 hours) Category Date Time Status 1800 Calorie ADA Diet 12/02/16 Lunch Active Clear Liquid Diet 12/01/16 Dinner Completed NPO Diet 12/02/16 00:01 Completed Discharge Routine Discharge 12/02/16 16:16 Ordered Discharge/Telephone Order Routine Discharge 12/02/16 16:16 Active GALLBLADDER [US] Urgent Exams 12/02/16 13:27 Completed Patient Care Notes (Last 24 hours) 12/02/16 11:34 Nursing Note by Rashida Garcia gallbladder ultrasound results sent to Dr Raymundo's office. Initialized on 12/02/16 11:34 - END OF NOTE 12/01/16 19:39 Nursing Note by Savanna Shannon Dr. rounded, will continue with US in AM, Dr. Boudreaux advised to fax results to the office in the morning attn Dr. Raymundo. pt allowed to eat clear liquids. Initialized on 12/01/16 19:39 - END OF NOTE 12/01/16 18:07 Nursing Note by Savanna Shannon surgeon not here yet, nurse decision to feed pt clear liquids, as she feels as if her blood sugar is dropping. skin warm and dry, [employer] will do HS accucheck early per daughter's insistance. Initialized on 12/01/16 18:07 - END OF NOTE - Vitals & Intake/Output Vital Signs: Vital Signs Temperature 97.7 F 12/02/16 16:21 Pulse Rate 86 12/02/16 16:21 Respiratory Rate 20 12/02/16 16:21 Blood Pressure 116/56 12/02/16 16:21 O2 Sat by Pulse Oximetry 97 12/02/16 16:21 Intake & Output: Intake & Output 11/30/16 12/01/16 12/02/16 12/03/16 11:59 11:59 11:59 11:59 Intake Total 2757 700 0 Output Total 1100 900 200 Balance 1657 -200 -200 Weight 86.137 kg - Lab Result Diagrams: 11/30/16 12:40 11/30/16 12:40 Lab Results-Last 24 Hrs: Accuchecks Date 12/01/16 Date 12/01/16 Time 22:00 Time 18:13 Accucheck Value: 121 Accucheck Value: 126 Accucheck Value: 143 Accucheck Value: 91 Micro Results-Entire Visit: Microbiology 11/30/16 12:45 Blood Culture - Preliminary Blood NO GROWTH TO DATE 11/30/16 12:40 Blood Culture - Preliminary Blood NO GROWTH TO DATE Accuchecks Date 12/01/16 Date 12/01/16 Time 22:00 Time 18:13 Accucheck Value: 121 Accucheck Value: 126 Accucheck Value: 143 Accucheck Value: 91 - Radiology Exams Ordered Rad Exams-Entire Visit: Radiology Procedures Category Date Time Status GALLBLADDER [US] Urgent Exams 12/02/16 13:27 Completed - Procedures and Test Procedures and Tests throughout Hospitalization: Therapy Orders & Screens 11/30/16 01:19 EKG ROUTINE Comment: Diagnosis: Diverticulitis Discharge Exam General Appearance: no apparent distress, alert Neurologic Exam: alert, oriented x 3, cooperative, normal mood/affect, nml cerebellar function, sensation nml, No motor deficits Skin Exam: normal color, warm, dry Eye Exam: PERRL, EOMI, eyes nml inspection Ears, Nose, Throat Exam: normal ENT inspection, pharynx normal, moist mucous membranes Neck Exam: normal inspection, non-tender, supple, full range of motion Respiratory Exam: normal breath sounds, lungs clear, No respiratory distress Cardiovascular Exam: regular rate/rhythm, normal heart sounds Gastrointestinal/Abdomen Exam: soft, No tenderness, No mass Extremity Exam: normal inspection, normal range of motion Back Exam: normal inspection, normal range of motion, No CVA tenderness, No vertebral tenderness Pelvic Exam: deferred Rectal Exam: deferred Final Diagnosis/Problem List - Final Discharge Diagnosis/Problem (1) Diverticul disease small and large intestine, no perforati or abscess Current Visit: Yes Status: Resolved (2) Abdominal pain, acute, right upper quadrant Current Visit: Yes Status: Resolved (3) RLQ abdominal pain Current Visit: Yes Status: Acute (4) Diabetic neuropathy associated with type 2 diabetes mellitus Current Visit: No Status: Resolved - Discharge Discharge Date: 12/02/16 Disposition: Home, Self-Care Condition: Stable Prescriptions: New Metronidazole [Flagyl] 500 mg PO TID #15 tablet Continue Magnesium Oxide 400 mg [Mag-Ox 400] 400 mg PO BID Loratadine 10 mg [Claritin 10 mg] 10 mg PO DAILY Glipizide 2.5 mg [Glucotrol Xl 2.5 MG] 2.5 mg PO DAILY Potassium Chloride [Klor-Con 10] 10 meq PO BID Bumetanide 1 mg [Bumex 1 mg] 1 mg PO BID Allopurinol 300 mg [Zyloprim 300 mg] 300 mg PO DAILY PANTOPRAZOLE 40 mg Tablet [Protonix 40MG Tablet] 40 mg PO DAILY Lisinopril 10 mg [Zestril 10 MG] 10 mg PO DAILY Apixaban [Eliquis] 2.5 mg PO DAILY Metolazone 2.5 mg [Zaroxolyn 2.5 MG] 2.5 mg PO DAILY Levothyroxine Sodium [Synthroid] 25 mcg PO DAILY Levothyroxine Sodium [Synthroid] 200 mcg PO DAILY Docusate Sodium [Stool Softener] 50 mg PO DAILY Instructions: Abdominal Pain-Adult Additional Instructions: follow up with on 12/09/16@ 0930 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 Follow up with: TRINH MINAYA MD [Primary Care Provider] - 12/09/16 9:30 am (with at [facility]) Forms: Patient Portal Information
== END 2016-12-02 17:25 | disposition home or self-care (01) ==
LOC: MED SURG 12:25
PROVIDERS: ADMIT General Practice; ATTEND General Practice
DX: K57.32 Diverticulitis of large intestine without perforation or abscess without bleeding (principal); K57.12 Diverticulitis of small intestine without perforation or abscess without bleeding; E11.42 Type 2 diabetes mellitus with diabetic polyneuropathy; G40.909 Epilepsy, unspecified, not intractable, without status epilepticus; I50.9 Heart failure, unspecified; I12.9 Hypertensive chronic kidney disease with stage 1 through stage 4 chronic kidney disease, or unspecified chronic kidney disease; N18.9 Chronic kidney disease, unspecified; E03.9 Hypothyroidism, unspecified; M19.90 Unspecified osteoarthritis, unspecified site; K44.9 Diaphragmatic hernia without obstruction or gangrene; Z79.01 Long term (current) use of anticoagulants; Z79.899 Other long term (current) drug therapy; Z86.711 Personal history of pulmonary embolism; I25.2 Old myocardial infarction; Z85.828 Personal history of other malignant neoplasm of skin
CPT/HCPCS: 36415; 74176; 76705; 80053; 81000; 82150; 83036; 83605; 83690; 84484; 85025; 87040; 93005; G0378; J2270; J3010

== ENCOUNTER 2017-05-21 14:54 | Observation (INO) | payer MEDICARE ==
[2017-05-21] MEDS ORDERED: Zofran 4 MG/2 ML VIAL IV ONE (17:05)
[2017-05-21] MEDS ORDERED: MORPHINE SULFATE 4 MG INJ IV ONE (17:05)
--- NOTE | 2017-05-21 17:11 | ERPHSYRPT ---
- History of Present Illness Time Seen by Provider: 05/21/17 16:45 Historian: patient Exam Limitations: clinical condition Patient Subjective Stated Complaint: left lower abd pain x 2 days, worse today. called FMD today, he advised pt to come to ER. "I think I need an antibiotic " Triage Nursing Assessment: pt ambulatory to ER room #6 with aid of cane. pt states she feels like her direticulitis is acting up and called her doctor for an antibiotic and he advised her to come in and be seen in ER. skin warm and dry, abdomen round, slightly firm but nontender to examiner's touch, pain (left lower quad) appears to increase with movement. bowel sounds + x 4, pt ate reg diet for lunch today. Physician History: PATIENT WITH A HISTORY OF TYPE 2 DIABETES, HYPERTENSION COMPLAINS OF LEFT LOWER ABDOMINAL PAINS FOR 2 DAYS. DENIES NAUSEA, EMESIS, DIARRHEA, FEVER OR URINARY SYMPTOMS. Timing/Duration: day(s) Activities at Onset: none Quality: sharpness, stabbing Abdominal Pain Onset Location: LLQ Pain Radiation: no radiation Severity of Pain-Max: moderate Severity of Pain-Current: moderate Modifying Factors: Improves With: movement Previous symptoms: same symptoms as today (HISTORY OF COLITIS/DIVERTICULITIS) Allergies/Adverse Reactions: ofloxacin [From Floxin] Allergy (Verified 03/11/16 01:02) Sulfa (Sulfonamide Antibiotics) [Sulfa(Sulfonamide Antibiotics)] Allergy ( Verified 03/11/16 01:02) Home Medications: Allopurinol 300 mg [Zyloprim 300 mg] 300 mg PO DAILY 11/30/16 [History] Apixaban [Eliquis] 2.5 mg PO DAILY 11/30/16 [History] Bumetanide 1 mg [Bumex 1 mg] 1 mg PO BID 11/30/16 [History] Docusate Sodium [Stool Softener] 50 mg PO DAILY 11/30/16 [History] Glipizide 2.5 mg [Glucotrol Xl 2.5 MG] 2.5 mg PO HS 11/30/16 [History] Levothyroxine Sodium [Synthroid] 25 mcg PO DAILY 11/30/16 [History] Levothyroxine Sodium [Synthroid] 200 mcg PO DAILY 11/30/16 [History] Loratadine 10 mg [Claritin 10 mg] 10 mg PO DAILY 11/30/16 [History] Magnesium Oxide 400 mg [Mag-Ox 400] 400 mg PO BID 11/30/16 [History] Metolazone 2.5 mg [Zaroxolyn 2.5 MG] 2.5 mg PO DAILY 11/30/16 [History] PANTOPRAZOLE 40 mg Tablet [Protonix 40MG Tablet] 40 mg PO HS 11/30/16 [ History] Potassium Chloride [Klor-Con 10] 10 meq PO BID 11/30/16 [History] Hydrocodone Bit/Acetaminophen [[place] 7.5-325 Tablet] 1 each PO Q6HPRN PRN [History] Lisinopril 5 mg [Zestril 5 MG] 5 mg PO DAILY 05/21/17 [History] Nitroglycerin 0.4 mg Tablet [Nitrostat 0.4 MG Tablet] 0.4 mg SL Q5MIN PRN MR X 3 PRN 05/21/17 [History] Hx Tetanus, Diphtheria Vaccination/Date Given: Yes (< 10 yrs) Hx Influenza Vaccination/Date Given: Yes (aug 2016) Hx Pneumococcal Vaccination/Date Given: Yes (1 year ago) Immunizations Up to Date: Yes - Review of Systems Constitutional: No Fever, No Chills Eyes: No Symptoms Ears, Nose, & Throat: No Symptoms Respiratory: No Symptoms, No Cough, No Dyspnea Cardiac: No Symptoms, No Chest Pain, No Edema, No Syncope Abdominal/Gastrointestinal: Abdominal Pain, No Nausea, No Vomiting, No Diarrhea Genitourinary Symptoms: No Symptoms, No Dysuria Musculoskeletal: No Symptoms, No Back Pain, No Neck Pain Skin: No Symptoms, No Rash Neurological: No Dizziness, No Focal Weakness, No Sensory Changes Psychological: No Symptoms Endocrine: No Symptoms All Other Systems: Reviewed and Negative - Past Medical History Pertinent Past Medical History: Yes Neurological History: Epilepsy, Peripheral Neuropathy ENT History: Cataracts, Other Cardiac History: Congestive Heart Failure, Hypertension, Myocardial Infarction ( [place]) Respiratory History: CHF, COPD, Emphysema, Pulmonary Embolism Endocrine Medical History: Diabetes Type II, Hypothyroidism Musculoskeletal History: Arthritis, Osteoarthritis GI Medical History: Diverticulosis, Hemorrhoids, Hernia History: Renal Disease Psycho-Social History: No Pertinent History Female Reproductive Disorders: No Pertinent History Other Medical History: 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 - Past Surgical History Past Surgical History: Yes Neuro Surgical History: No Pertinent History Cardiac: Cardiac Catheterization Respiratory: No Pertinent History Gastrointestinal: No Pertinent History Genitourinary: No Pertinent History Musculoskeletal: No Pertinent History Female Surgical History: Hysterectomy, Lumpectomy Other Surgical History: breast tumor removed, tumor removed from back benign, 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 - Social History Smoking Status: Never smoker Exposure to second hand smoke: Yes Drug Use: none Patient Lives Alone: No - Female History Hx Now: No - Nursing Vital Signs Nursing Vital Signs: Initial Vital Signs Temperature 98.1 F Temperature Source Oral Pulse Rate 90 Respiratory Rate 18 Blood Pressure [] 132/48 Pain Intensity 7 - Physical Exam General Appearance: no apparent distress, alert Eye Exam: PERRL/EOMI, eyes nml inspection Ears, Nose, Throat Exam: normal ENT inspection, pharynx normal, moist mucous membranes Neck Exam: normal inspection, non-tender, supple, full range of motion Respiratory Exam: normal breath sounds, lungs clear, No respiratory distress Cardiovascular Exam: regular rate/rhythm, normal heart sounds Gastrointestinal/Abdomen Exam: soft, normal bowel sounds, tenderness (LEFT LOWER QUAD), No mass Back Exam: normal inspection, normal range of motion, No CVA tenderness, No vertebral tenderness Extremity Exam: normal inspection, normal range of motion, pelvis stable Neurologic Exam: alert, oriented x 3, cooperative, normal mood/affect, nml cerebellar function, sensation nml, No motor deficits Skin Exam: normal color, warm, dry SpO2 Interpretation: normal SpO2: 97 Oxygen Delivery: Room Air - CT Exams Abdomen/Pelvis CT Interpretation: Tele-radiologist Report (FINDINGS SUGGESTIVE OF DIVERTICULITIS INVOLVING THE DESCENDING COLON AND LESS PROMINENT INVOLVING THE TRANSVERSE COLON) Ordered Tests: Active Orders 24 hr Category Date Time Status Up With Assistance ROUTINE Activity 05/21/17 19:22 Ordered Accucheck ACHS Care 05/21/17 19:22 Ordered Admission/Status Order ROUTINE Care 05/21/17 19:22 Ordered Call Admit Doctor for Orders ON ADMISSION Care 05/21/17 19:23 Ordered Code Status Order ROUTINE Care 05/21/17 19:22 Ordered IV Care Q6H Care 05/21/17 19:22 Ordered IV Insertion STAT Care 05/21/17 17:05 Active Intake and Output Q12H Care 05/21/17 19:22 Ordered Vital Signs Q4H Care 05/21/17 19:22 Ordered NPO except Meds Diet 05/21/17 19:23 Ordered ABDOMEN AND PELVIS W/0 CONTRAS [CT] Stat Exams 05/21/17 17:05 Taken AMYLASE Stat Lab 05/21/17 16:50 Completed BLOOD CULTURE Stat Lab 05/21/17 17:20 Received CBC W DIFF Stat Lab 05/21/17 16:50 Completed CMP Stat Lab 05/21/17 16:50 Completed CULTURE,URINE Stat Lab 05/21/17 16:50 Received LIPASE Stat Lab 05/21/17 16:50 Completed UA W/ MICROSCOPIC Stat Lab 05/21/17 16:50 Completed Oxygen NASAL CANNULA 2 lpm RT 05/21/17 19:22 Ordered Pulse Oximetry CONTINUOUS RT 05/21/17 19:24 Ordered Transfer Order Routine Transfer 05/21/17 19:22 Ordered Medication Summary Generic Name Dose Route Start Last Admin Trade Name Freq PRN Reason Stop Dose Admin Sodium Chloride 1,000 mls @ 100 mls/hr 05/21/17 17:15 05/21/17 17:40 Sodium Chloride 0.9% 1000 Ml IV 06/20/17 17:14 100 mls/hr .Q10H NKECHI Administration Piperacillin Sod/Tazobactam 100 mls @ 100 mls/hr 05/21/17 19:17 Sod 4.5 gm/ Dextrose IV 05/21/17 20:16 STAT ONE Discontinued Medications Generic Name Dose Route Start Last Admin Trade Name Freq PRN Reason Stop Dose Admin Metronidazole 500 mg in 100 mls @ 200 mls/hr 05/21/17 18:17 05/21/17 18:26 Flagyl 500 Mg Ivpb IV 05/21/17 18:46 200 mls/hr STAT STA Administration Metronidazole Confirm 05/21/17 18:26 Flagyl 500 Mg Ivpb Administered 05/21/17 18:27 Dose 500 mg in 100 mls @ ud IV .STK-MED ONE Dextrose Confirm 05/21/17 19:21 D5w 100ml Mini Bag 100 Ml Administered 05/21/17 19:22 Dose 100 mls @ ud IV .STK-MED ONE Morphine Sulfate 4 mg 05/21/17 17:05 05/21/17 17:40 Morphine Sulfate 4 Mg Inj IV 05/21/17 17:06 4 mg STAT ONE Administration Morphine Sulfate Confirm 05/21/17 17:38 Morphine Sulfate 4 Mg Inj Administered 05/21/17 17:39 Dose 4 mg .ROUTE .STK-MED ONE Ondansetron HCl 4 mg 05/21/17 17:05 05/21/17 17:40 Zofran 4 Mg/2 Ml Vial IV 05/21/17 17:06 4 mg STAT ONE Administration Ondansetron HCl Confirm 05/21/17 17:24 Zofran 4 Mg/2 Ml Vial Administered 05/21/17 17:25 Dose 4 mg .ROUTE .STK-MED ONE Piperacillin Sod/Tazobactam Sod Confirm 05/21/17 19:19 Zosyn Inj Administered 05/21/17 19:20 Dose 4.5 gm IV .STK-MED ONE Lab/Rad Data: Laboratory Result Diagrams 05/21/17 16:50 05/21/17 16:50 Laboratory Results 05/21/17 05/21/17 05/21/17 Range/Units 16:50 16:50 16:50 WBC 11.7 H (4.0-10.5) K/mm3 RBC 3.92 L (4.1-5.4) M/mm3 Hgb 11.4 L (12.0-16.0) gm/dl Hct 35.3 (35-47) % MCV 90.1 (78-100) fl MCH 29.0 (26-32) pg MCHC 32.3 (32-36) g/dl RDW 15.8 H (11.5-14.0) % Plt Count 243 (150-450) K/mm3 MPV 10.1 H (6-9.5) fl Gran % 71.5 H (36.0-66.0) % Lymphocytes % 19.5 L (24.0-44.0) % Monocytes % 7.4 (0.0-12.0) % Eosinophils % 1.3 (0.00-5.0) % Basophils % 0.3 (0.0-0.4) % Basophils # 0.04 (0-0.4) Sodium 138 (136-145) mEq/L Potassium 4.0 (3.5-5.1) mEq/L Chloride 98 (98-107) mEq/L Carbon Dioxide 29.3 (21-32) mEq/L Anion Gap 14.8 (5-15) MEQ/L BUN 28 H (9-20) mg/dL Creatinine 1.82 H (0.55-1.30) mg/dl Estimated GFR 29 ML/MIN Glucose 182 H (70-110) MG/DL Calcium 9.8 (8.5-10.1) mg/dL Total Bilirubin 0.40 (0.2-1.0) mg/dL AST 17 (15-37) U/L ALT 16 (12-78) U/L Alkaline Phosphatase 73 (46-116) U/L Serum Total Protein 7.5 (6.4-8.2) gm/dL Albumin 3.6 (3.4-5.0) g/dL Amylase 48 (25-115) U/L Lipase 201 (73-393) U/L Ur Collection Type CCMS Urine Color YELLOW (YELLOW) Urine Appearance CLEAR (CLEAR) Urine pH 5.0 (5-6) Ur Specific [place] 1.020 (1.005-1.025) Urine Protein NEGATIVE (Negative) Urine Ketones NEGATIVE (NEGATIVE) Urine Blood NEGATIVE (0-5) Quentin/ul Urine Nitrite NEGATIVE (NEGATIVE) Urine Bilirubin NEGATIVE (NEGATIVE) Urine Urobilinogen NORMAL (0-1) mg/dL Ur Leukocyte Esterase TRACE (NEGATIVE) Urine Microscopic WBC 2-5 (0-5) /HPF Ur Epithelial Cells FEW (FEW) /HPF Urine Bacteria FEW (NEGATIVE) /HPF Urine Glucose NEGATIVE (NEGATIVE) mg/dL Specimen Received 05-21-17 1800 - Progress Progress Note: 05/21/17 19:19 PATIENT GIVEN IV FLUIDS NORMAL SALINE 100ML/HR, ZOFRAN 4MG, MORPHINE 4MG IV AFTER 2 SETS OF BLOOD CULTURES, FLAGYL 500MG IVPB, AND ZOSYN 4.5GM IVPB Discussed with : Peter (DISCUSSED WITH DR MINAYA AT 1845 FOR [id number]) - Departure Time of Disposition: 19:30 Departure Disposition: Observation Clinical Impression: ACUTE DIVERTICULITIS Condition: Stable Critical Care Time: No Referrals: TRINH MINAYA MD [Primary Care Provider] -
[2017-05-21] MEDS ORDERED: Sodium Chloride 0.9% 1000 ML 1,000 ML IV SCH (17:15)
[2017-05-21] MEDS ORDERED: Zofran 4 MG/2 ML VIAL ONE (17:24)
[2017-05-21] MEDS ORDERED: MORPHINE SULFATE 4 MG INJ ONE (17:38)
[2017-05-21 17:50] LABS: ALBUMIN 3.6 g/dL (3.4-5.0); ANION GAP 14.8 MEQ/L (5-15); BASOPHIL % 0.3 % (0.0-0.4); BILIRUBIN,TOTAL 0.4 mg/dL (0.2-1.0); Carbon Dioxide 29.3 mEq/L (21-32); Eosinophil % 1.3 % (0.00-5.0); Granulocytes % 71.5 % (36.0-66.0); Lymphocytes % 19.5 % (24.0-44.0); Mean Cell Volume 90.1 fl (78-100); Mean Platelet Volume 10.1 fl (6-9.5); Monocytes % 7.4 % (0.0-12.0); Platelet Count 243 K/mm3 (150-450); Red Blood Count 3.92 M/mm3 (4.1-5.4); Red Cell Distribution Width 15.8 % (11.5-14.0); Total Protein 7.5 gm/dL (6.4-8.2); White Blood Count 11.7 K/mm3 (4.0-10.5)
[2017-05-21 18:04] LABS: Bilirubin NEGATIVE (NEGATIVE); Blood NEGATIVE Ery/ul (0-5); COMPLETE URINE MICROSCOPIC? YES; Collection Type CCMS; Glucose NEGATIVE (NEGATIVE); Leukocyte Esterase TRACE (NEGATIVE)
[2017-05-21 18:05] LABS: ADD URINE CULTURE? YES (NO); Bacteria FEW /HPF (NEGATIVE); Epithelial Cells FEW /HPF (FEW)
[2017-05-21] MEDS ORDERED: FLAGYL 500 MG IVPB 500 MG/100 ML BAG IV STA (18:17)
[2017-05-21] MEDS ORDERED: FLAGYL 500 MG IVPB 500 MG/100 ML BAG IV ONE (18:26)
[2017-05-21] MEDS ORDERED: Zosyn INJ 4.5 GM in D5w 100ML Mini Bag 100 ML 100 ML IV ONE (19:17)
[2017-05-21] MEDS ORDERED: Zosyn INJ IV ONE (19:19)
[2017-05-21] MEDS ORDERED: D5w 100ML Mini Bag 100 ML 100 ML IV ONE (19:21)
[2017-05-21] MEDS ORDERED: Zofran 4 MG/2 ML VIAL IV PRN (19:22)
[2017-05-21] MEDS: MORPHINE SULFATE 4 MG INJ IV PRN (21:53)
[2017-05-21] MEDS: Klor Con 10 MEQ PO SCH (22:55)
[2017-05-21] MEDS: Sodium Chloride 0.9% 1000 ML 1,000 ML IV SCH (23:13)
[2017-05-21] MEDS: FLAGYL 500 MG IVPB 500 MG/100 ML BAG IV SCH (23:52)
[2017-05-22] MEDS: Zosyn 3.375GM/100 Ml D5W 3.375 GM/100 ML IVPB IV SCH ×4 (00:52→17:25)
[2017-05-22] MEDS: Sodium Chloride 0.9% 1000 ML 1,000 ML IV SCH ×2 (05:32→23:41)
[2017-05-22] MEDS: FLAGYL 500 MG IVPB 500 MG/100 ML BAG IV SCH ×4 (05:33→23:42)
[2017-05-22] MEDS: MORPHINE SULFATE 4 MG INJ IV PRN (05:44)
--- NOTE | 2017-05-22 08:55 | PCM.HP ---
History of Present Illness - Chief Complaint Chief Complaint: c/o abdominal pain for 2 days History of Present Illness: is a 77 year old female.left lower abd pain x 2 days, worse today. called FMD today, he advised pt to come to ER. - Review of Systems Constitutional: No Fever, No Chills Eyes: No Symptoms Ears, Nose, & Throat: No Symptoms Respiratory: No Cough, No Short Of Breath Cardiac: No Chest Pain, No Edema, No Syncope Abdominal/Gastrointestinal: Abdominal Pain, No Nausea, No Vomiting, No Diarrhea Genitourinary Symptoms: No Dysuria Musculoskeletal: No Back Pain, No Neck Pain Skin: No Rash Neurological: No Dizziness, No Focal Weakness, No Sensory Changes Psychological: No Symptoms Endocrine: No Symptoms Hematologic/Lymphatic: No Symptoms Immunological/Allergic: No Symptoms Medications & Allergies Home Medications: Home Medication List Allopurinol 300 mg [Zyloprim 300 mg] 300 mg PO DAILY 11/30/16 [History Confirmed 05/21/17] Apixaban [Eliquis] 2.5 mg PO BID 11/30/16 [History Confirmed 05/21/17] Bumetanide 1 mg [Bumex 1 mg] 1 mg PO BID 11/30/16 [History Confirmed 05/21] Docusate Sodium [Stool Softener] 50 mg PO DAILY 11/30/16 [History Confirmed ] Levothyroxine Sodium [Synthroid] 25 mcg PO DAILY 11/30/16 [History Confirmed ] Levothyroxine Sodium [Synthroid] 200 mcg PO DAILY 11/30/16 [History Confirmed ] Loratadine 10 mg [Claritin 10 mg] 10 mg PO DAILY 11/30/16 [History Confirmed 05/21/17] Magnesium Oxide 400 mg [Mag-Ox 400] 400 mg PO BID 11/30/16 [History Confirmed 05/21/17] Metolazone 2.5 mg [Zaroxolyn 2.5 MG] 2.5 mg PO DAILY 11/30/16 [History Confirmed 05/21/17] PANTOPRAZOLE 40 mg Tablet [Protonix 40MG Tablet] 40 mg PO DAILY 11/30/16 [ History Confirmed 05/21/17] Potassium Chloride [Klor-Con 10] 10 meq PO BID 11/30/16 [History Confirmed 05/21] Glyburide 5 mg [Micronase 5 MG] 2.5 mg PO DAILY 05/21/17 [History Confirmed 05/21/17] Hydrocodone Bit/Acetaminophen [[place] 7.5-325 Tablet] 1 each PO Q6HPRN PRN [History Confirmed 05/21/17] Lisinopril 5 mg [Zestril 5 MG] 5 mg PO DAILY 05/21/17 [History Confirmed 05/21/17] Nitroglycerin 0.4 mg Tablet [Nitrostat 0.4 MG Tablet] 0.4 mg SL Q5MIN PRN MR X 3 PRN 05/21/17 [History Confirmed 05/21/17] Vitamin B Complex [Super B-50 Complex] 1 each PO DAILY 05/21/17 [History Confirmed 05/21/17] Allergies/Adverse Reactions: Allergies Allergy/AdvReac Type Severity Reaction Status Date / Time ofloxacin [From Floxin] Allergy Verified 03/11/16 01:02 Sulfa (Sulfonamide Allergy Verified 03/11/16 01:02 Antibiotics) [Sulfa(Sulfonamide Antibiotics)] - Past Medical History Past Medical History: Yes Neurological History: Epilepsy, Peripheral Neuropathy ENT History: Cataracts, Other Cardiac History: Congestive Heart Failure, Hypertension, Myocardial Infarction ( [place]) Respiratory History: CHF, COPD, Emphysema, Pulmonary Embolism Endocrine Medical History: Diabetes Type II, Hypothyroidism Musculoskelatal History: Arthritis, Osteoarthritis GI Medical History: Diverticulosis, Hemorrhoids, Hernia History: Renal Disease Pyscho-Social History: No Pertinent History Reproductive Disorders: No Pertinent History Comment: 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 - Female History Are you now?: No - Past Surgical History Past Surgical History: Yes Neuro Surgical History: No Pertinent History Cardiac History: Cardiac Catheterization Respiratory Surgery: No Pertinent History GI Surgical History: No Pertinent History Genitourinary Surgical Hx: No Pertinent History Musculskeletal Surgical Hx: No Pertinent History Female Surgical History: Hysterectomy, Lumpectomy Other Surgical History: breast tumor removed, tumor removed from back benign, 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 - Social History Smoking Status: Never smoker Exposure to second hand smoke: Yes Alcohol: None Drug Use: none - Physical Exam Vital Signs: Vital Signs - 24 hr Temp Pulse Resp BP Pulse Ox 05/22/17 08:05 98.6 F 71 18 113/54 96 05/22/17 07:19 95 05/22/17 04:00 98.7 F 71 18 116/56 97 05/22/17 02:58 97 05/22/17 00:00 98.8 F 85 20 95/44 97 05/21/17 21:13 98.1 F 90 18 132/48 99 05/21/17 19:44 92 H 18 115/50 97 05/21/17 19:28 97 05/21/17 19:24 98 05/21/17 19:04 90 18 132/48 99 05/21/17 18:12 90 18 130/60 98 05/21/17 17:18 92 H 16 125/52 98 05/21/17 15:15 98.1 F 112 H 16 140/60 97 General Appearance: no apparent distress, alert Neurologic Exam: alert, oriented x 3, cooperative, normal mood/affect, nml cerebellar function, nml station & gait, sensation nml, No motor deficits Eye Exam: PERRL/EOMI, eyes nml inspection Ears, Nose, Throat Exam: normal ENT inspection, TMs normal, pharynx normal, moist mucous membranes Neck Exam: normal inspection, non-tender, supple, full range of motion Respiratory Exam: normal breath sounds, lungs clear, No respiratory distress Cardiovascular Exam: regular rate/rhythm, normal heart sounds, normal peripheral pulses Gastrointestinal/Abdomen Exam: soft, normal bowel sounds, tenderness, No mass Back Exam: normal inspection, normal range of motion, No CVA tenderness, No vertebral tenderness Extremity Exam: normal inspection, normal range of motion, pelvis stable Skin Exam: normal color, warm, dry, No rash Lymphatic Exam: No adenopathy Results - Labs Lab/Micro Results: Accuchecks Accucheck Value: 112 Accuchecks Accucheck Value: 112 - Other Procedures and Tests Respiratory Therapy 05/21/17 19:22 Oxygen NASAL CANNULA 2 lpm Assessment/Plan (1) RLQ abdominal pain Current Visit: Yes Status: Acute (2) Diabetic neuropathy associated with type 2 diabetes mellitus Current Visit: No Status: Resolved Qualifiers: Code(s): E11.40 - TYPE 2 DIABETES MELLITUS WITH DIABETIC NEUROPATHY, UNSP (3) Diverticul disease small and large intestine, no perforati or abscess Current Visit: Yes Status: Acute Code(s): K57.50 - DVRTCLOS OF BOTH SM AND LG INT W/O PERF OR ABSCS W/O BLEED
--- NOTE | 2017-05-22 08:58 | XRAY ---
Indication: Left lower quadrant pain. History diverticulitis. Multiple contiguous axial images obtained through the abdomen and pelvis without contrast as ordered. Comparison: November 30, 2016. Again minimal left lung base atelectasis/scarring and small hiatal hernia. Right lung base clear. Heart is not enlarged. Noncontrasted stomach and bowel loops appear nonobstructed. Normal appendix. Again moderate diffuse scattered colonic fecal debris. There is again diffuse scattered diverticulosis with now mild focus of diverticulitis involving the proximal transverse and junction of the descending/sigmoid colon. No free fluid/air. Previous hysterectomy. Stable small left lower pole renal cyst, small left adrenal adenoma, and calcified splenic granuloma. Remaining liver, gallbladder, pancreas, spleen, adrenal glands, kidneys, ureters, and bladder appear unremarkable for noncontrast exam. Stable mild aortoiliac calcifications without AAA. Osseous structures intact with mild osteopenia and minimal degenerative changes throughout the spine. Impression: 1. Again diffuse colonic diverticulosis with now mild diverticulitis involving the transverse and distal descending colon as detailed. No complications. 2. Stable left renal cyst, left adrenal adenoma, and small hiatal hernia. Comment: Preliminary interpretation was made by C. No critical discrepancy. CTDI 21.11
[2017-05-22] MEDS ORDERED: Nitrostat 0.4 MG Tablet SL PRN (09:34)
[2017-05-22] MEDS ORDERED: SYNTHROID 150 MCG PO SCH (10:00)
[2017-05-22] MEDS ORDERED: VITAMIN B COMPLEX PO SCH (10:00)
[2017-05-22] MEDS ORDERED: NON-FORMULARY ITEM (Docusate Sodium [Stool Softener] 50 MG) PO SCH (10:00)
[2017-05-22] MEDS ORDERED: NON-FORMULARY ITEM (Apixaban [Eliquis] 2.5 MG) PO SCH (10:00)
[2017-05-22] MEDS ORDERED: Colace 100 MG PO SCH (10:00)
[2017-05-22] MEDS ORDERED: ELIQUIS PO SCH (10:00)
[2017-05-22] MEDS: Zaroxolyn 2.5 MG PO SCH (11:25)
[2017-05-22] MEDS: BUMEX 1 MG PO SCH ×2 (11:25→17:25)
[2017-05-22] MEDS: Micronase 5 MG PO SCH (11:26)
[2017-05-22] MEDS: SYNTHROID 100 MCG PO SCH (11:28)
[2017-05-22] MEDS: SYNTHROID 25 MCG PO SCH (11:29)
[2017-05-22] MEDS: Klor Con 10 MEQ PO SCH ×2 (11:29→22:12)
[2017-05-22] MEDS: Zestril 5 MG PO SCH (11:29)
[2017-05-22] MEDS: ELIQUIS PO SCH ×2 (11:30→22:12)
[2017-05-22] MEDS: MAG-OX 400 PO SCH ×2 (11:31→22:12)
[2017-05-22] MEDS: ZYLOPRIM 300 MG PO SCH (11:31)
[2017-05-22] MEDS: Protonix 40MG Tablet PO SCH (11:31)
[2017-05-22] MEDS: CLARITIN 10 MG PO SCH (11:32)
[2017-05-22] MEDS ORDERED: Colace 100 MG ONE (11:49)
[2017-05-22] MEDS: NORCO 7.5/325 MG TAB PO PRN ×2 (11:50→22:12)
[2017-05-22] MEDS: VITA-BEE WITH C PO SCH (11:51)
[2017-05-22] MEDS: Colace 100 MG PO SCH (11:52)
[2017-05-23] MEDS: Zosyn 3.375GM/100 Ml D5W 3.375 GM/100 ML IVPB IV SCH ×3 (00:46→12:30)
[2017-05-23] MEDS: FLAGYL 500 MG IVPB 500 MG/100 ML BAG IV SCH ×2 (05:34→12:21)
[2017-05-23] MEDS: NORCO 7.5/325 MG TAB PO PRN ×2 (05:51→10:43)
[2017-05-23] MEDS: Zestril 5 MG PO SCH (10:36)
[2017-05-23] MEDS: Klor Con 10 MEQ PO SCH (10:36)
[2017-05-23] MEDS: BUMEX 1 MG PO SCH (10:36)
[2017-05-23] MEDS: MAG-OX 400 PO SCH (10:36)
[2017-05-23] MEDS: ZYLOPRIM 300 MG PO SCH (10:36)
[2017-05-23] MEDS: Colace 100 MG PO SCH (10:36)
[2017-05-23] MEDS: SYNTHROID 25 MCG PO SCH (10:37)
[2017-05-23] MEDS: ELIQUIS PO SCH (10:37)
[2017-05-23] MEDS: CLARITIN 10 MG PO SCH (10:38)
[2017-05-23] MEDS: SYNTHROID 100 MCG PO SCH (10:38)
[2017-05-23] MEDS: Protonix 40MG Tablet PO SCH (10:38)
[2017-05-23] MEDS: Micronase 5 MG PO SCH (10:39)
[2017-05-23] MEDS: Zaroxolyn 2.5 MG PO SCH (10:39)
[2017-05-23] MEDS: VITA-BEE WITH C PO SCH (10:40)
[2017-05-23 11:44] VITALS: BP 111/54; PULSE 58; O2SAT 98
--- NOTE | 2017-05-27 08:16 | DS ---
DISCHARGE DIAGNOSES: 1) MILD DIVERTICULITIS (TRANSVERSE-DISTAL DESCENDING COLON). 2) RIGHT LOWER ABDOMINAL PAIN (RIGHT LOWER QUADRANT, IMPROVED). 3) CHRONIC ANEMIA. 4) CHRONIC RENAL INSUFFICIENCY. 5) HISTORY OF HYPERTENSION/CORONARY ARTERY DISEASE. 6) PRIOR HISTORY OF DIVERTICULITIS. 7) DIABETES MELLITUS. 8) HYPOTHYROIDISM. HOSPITAL COURSE: Susan Huang is a 77 year-old woman with multiple medical problems. She was admitted on 05/21/2017 with right lower abdominal pain. Please refer to Dr. Green's history and physical for details. Lab work up on admission was notable for mildly elevated white blood cell count of 11.7, hemoglobin 11.4. CMP was notable for BUN 28, creatinine 1.82. Hemoglobin A1C was 5.7. Liver function tests were unremarkable. Lipase was within normal limits. UA showed few epithelial cells, few bacteria. Upon admission she was placed on treatment with IV fluids, broad spectrum IV antibiotics. Also she had reported some constipation and was placed on Lactulose. CT scan of abdomen and pelvis on 05/21/2017 showed diffuse colonic diverticulosis with mild diverticulitis in transverse and distal descending colon. No complications. Stable renal cyst. Blood cultures from 05/21/2017 are pending. Urine cultures from 05/21/2017 showed no growth. She was placed on clear liquid diet that she tolerated well. During her further course she improved clinically. Her symptoms of right lower abdominal pain have improved. At the time of this evaluation she is alert, awake and comfortable. She states the right lower abdominal pain has improved. Overall she feels well and is wishing to go home. She denies any nausea or vomiting. She complains of constipation (chronic). She denies blood in stools. PHYSICAL EXAMINATION: VITAL SIGNS: Blood pressure 106/54, heart rate 64, respiratory rate 18, temperature 98.3F. Oxygen saturation 96% on room air. HEENT: Normocephalic. Pallor is present. No icterus is noted. NECK: No JVD is present. CVS: S1, S2 present. RESPIRATORY: Breath sounds are bilaterally diminished and clear to auscultation. ABDOMEN: Obese, soft, nontender. NEURO: She is alert, awake, answers simple questions. EXTREMITIES: Trace edema on bilateral lower extremities. LABORATORY DATA AND TESTS: There were no new labs today. Medications were reviewed. ASSESSMENT: As outlined in discharge diagnosis. PLAN: The patient was admitted with right lower abdominal pain. Work up showed mildly elevated white blood cell count and mild diverticulitis. She was placed on IV antibiotics. She improved clinically. She remained hemodynamically stable. Overall she has clinically improved and feeling better. Will advance diet as tolerated. Will likely discharge home later today on p.o. antibiotic. The patient's clinical condition, work-up results and plan of management were discussed with patient and daughter also discussed with case assembler. The patient and daughter seem to be in understanding and agreement. Also discussed with case assembler. I have advised the patient to follow up with Dr. Green early next week. Follow up CMP/CBC will be obtained during office visit. The plan was discussed with the patient and daughter. They seemed to be in understanding and agreement. Please refer to discharge medication list from 05/23/2017 for details of medications on discharge.
== END 2017-05-23 15:00 | disposition home or self-care (01) ==
LOC: ED 14:54 → MED SURG 20:34
PROVIDERS: ADMIT General Practice; ATTEND General Practice
DX: K57.50 Diverticulosis of both small and large intestine without perforation or abscess without bleeding (principal); R10.31 Right lower quadrant pain; I12.9 Hypertensive chronic kidney disease with stage 1 through stage 4 chronic kidney disease, or unspecified chronic kidney disease; D53.9 Nutritional anemia, unspecified; N18.9 Chronic kidney disease, unspecified; E03.9 Hypothyroidism, unspecified; E11.40 Type 2 diabetes mellitus with diabetic neuropathy, unspecified; G40.909 Epilepsy, unspecified, not intractable, without status epilepticus; M19.90 Unspecified osteoarthritis, unspecified site; I50.9 Heart failure, unspecified; I25.2 Old myocardial infarction
CPT/HCPCS: 36000; 36415; 74176; 80053; 81000; 82150; 82962; 83036; 83690; 85025; 87040; 87086; 94760; 96360; 96361; 96367; 96374; 96375; 99285; G0378; J2270; J2405; J2543; A9270-GY

== ENCOUNTER 2017-12-17 00:17 | Inpatient (IN) | payer MEDICARE ==
[2017-12-17] MEDS ORDERED: Zofran 4 MG/2 ML VIAL IV ONE (00:57)
[2017-12-17] MEDS ORDERED: Sodium Chloride 0.9% 1000 ML 1,000 ML IV SCH (01:00)
[2017-12-17] MEDS ORDERED: BABY ASPIRIN 81 MG CHEW PO ONE (01:03)
[2017-12-17] MEDS ORDERED: Nitrostat 0.4 MG (ED) SL ONE ×2 (01:03→01:29)
--- NOTE | 2017-12-17 01:07 | ERPHSYRPT ---
- History of Present Illness Time Seen by Provider: 12/17/17 00:45 Historian: japanese interpreter Exam Limitations: other Patient Subjective Stated Complaint: c/o vomiting, nausea, pressure in chest and throat shortly after eating tonight. Triage Nursing Assessment: c/o pressure in throat, epigastric area, nausea, dry heaving on assessment Physician History: PATIENT WITH A HISTORY OF TYPE 2 DIABETES, HYPERTENSION, MYOCARDIAL INFARCTION X 2 COMPLAINS OF NAUSEA AT 9PM TONIGHT AFTER EATING SWALLOWING CANDY. HAS NAUSEA, PRESSURE DISCOMFORT INTO CHEST AND DIAPHORESIS. PATIENT ALSO COMPLAINS OF LEFT SIDED ABDOMINAL PAINS X 2 DAYS Timing/Duration: today Activities at Onset: none Location: substernal Severity of Pain-Max: moderate Severity of Pain-Current: moderate Associated Symptoms: nausea Prior Chest Pain/Cardiac Workup: no prior cardiac workup, recently seen/treated Nitro Today/Relief: provided by ED Aspirin Treatment Today: no aspirin today, provided by ED Allergies/Adverse Reactions: ofloxacin [From Floxin] Allergy (Verified 03/11/16 01:02) Sulfa (Sulfonamide Antibiotics) [Sulfa(Sulfonamide Antibiotics)] Allergy ( Verified 03/11/16 01:02) Home Medications: Allopurinol 300 mg [Zyloprim 300 mg] 300 mg PO DAILY 11/30/16 [History] Apixaban [Eliquis] 2.5 mg PO BID 11/30/16 [History] Bumetanide 1 mg [Bumex 1 mg] 1 mg PO BID 11/30/16 [History] Docusate Sodium [Stool Softener] 50 mg PO DAILY 11/30/16 [History] Levothyroxine Sodium [Synthroid] 25 mcg PO DAILY 11/30/16 [History] Levothyroxine Sodium [Synthroid] 200 mcg PO DAILY 11/30/16 [History] Loratadine 10 mg [Claritin 10 mg] 10 mg PO DAILY 11/30/16 [History] Magnesium Oxide 400 mg [Mag-Ox 400] 400 mg PO BID 11/30/16 [History] Metolazone 2.5 mg [Zaroxolyn 2.5 MG] 2.5 mg PO DAILY 11/30/16 [History] PANTOPRAZOLE 40 mg Tablet [Protonix 40MG Tablet] 40 mg PO HS 11/30/16 [ History] Potassium Chloride [Klor-Con 10] 10 meq PO BID 11/30/16 [History] Glyburide 5 mg [Micronase 5 MG] 2.5 mg PO HS 05/21/17 [History] Hydrocodone Bit/Acetaminophen [[place] 7.5-325 Tablet] 1 each PO Q6HPRN PRN [History] Lisinopril 5 mg [Zestril 5 MG] 2.5 mg PO DAILY 05/21/17 [History] Nitroglycerin 0.4 mg Tablet [Nitrostat 0.4 MG Tablet] 0.4 mg SL Q5MIN PRN MR X 3 PRN 05/21/17 [History] Vitamin B Complex [Super B-50 Complex] 1 each PO DAILY 05/21/17 [History] Hx Tetanus, Diphtheria Vaccination/Date Given: Yes Hx Influenza Vaccination/Date Given: Yes Hx Pneumococcal Vaccination/Date Given: Yes Immunizations Up to Date: Yes - Review of Systems Constitutional: No Fever, No Chills Eyes: No Symptoms Ears, Nose, & Throat: No Symptoms Respiratory: No Symptoms, No Cough, No Dyspnea Cardiac: Chest Pain, No Edema, No Syncope Abdominal/Gastrointestinal: Abdominal Pain, Nausea, Vomiting, No Diarrhea Genitourinary Symptoms: No Symptoms, No Dysuria Musculoskeletal: No Symptoms, No Back Pain, No Neck Pain Skin: No Symptoms, No Rash Neurological: No Dizziness, No Focal Weakness, No Sensory Changes Psychological: No Symptoms Endocrine: No Symptoms All Other Systems: Reviewed and Negative - Past Medical History Pertinent Past Medical History: Yes Neurological History: Epilepsy, Peripheral Neuropathy ENT History: Cataracts, Other Cardiac History: Congestive Heart Failure, Hypertension, Myocardial Infarction ( [place]) Respiratory History: CHF, COPD, Emphysema, Pulmonary Embolism Endocrine Medical History: Diabetes Type II, Hypothyroidism Musculoskeletal History: Arthritis, Osteoarthritis GI Medical History: Diverticulosis, Hemorrhoids, Hernia History: Renal Disease Psycho-Social History: No Pertinent History Female Reproductive Disorders: No Pertinent History Other Medical History: 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 - Past Surgical History Past Surgical History: Yes Neuro Surgical History: No Pertinent History Cardiac: Cardiac Catheterization Respiratory: No Pertinent History Gastrointestinal: No Pertinent History Genitourinary: No Pertinent History Musculoskeletal: No Pertinent History Female Surgical History: Hysterectomy, Lumpectomy Other Surgical History: breast tumor removed, tumor removed from back benign, 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 - Social History Smoking Status: Never smoker Exposure to second hand smoke: Yes Drug Use: none Patient Lives Alone: No - Female History Hx Now: No - Nursing Vital Signs Nursing Vital Signs: Initial Vital Signs Temperature 97.7 F 12/17/17 00:35 Pulse Rate 98 H 12/17/17 00:35 Respiratory Rate 20 12/17/17 00:35 Blood Pressure 140/59 12/17/17 00:35 O2 Sat by Pulse Oximetry 97 12/17/17 00:35 Pain Scale Pain Intensity 7 - Physical Exam General Appearance: no apparent distress, alert Eye Exam: PERRL/EOMI, eyes nml inspection Ears, Nose, Throat Exam: normal ENT inspection, moist mucous membranes Neck Exam: normal inspection, non-tender, supple, full range of motion Respiratory Exam: normal breath sounds, lungs clear, No respiratory distress Cardiovascular Exam: regular rate/rhythm, normal heart sounds Gastrointestinal/Abdomen Exam: soft, normal bowel sounds, tenderness (LEFT SIDED ABDOMINAL TENDERNESS), No mass Back Exam: normal inspection, No CVA tenderness, No vertebral tenderness Extremity Exam: normal inspection, normal range of motion Neurologic Exam: alert, oriented x 3, cooperative, normal mood/affect, sensation nml, No motor deficits Skin Exam: normal color, warm, dry SpO2 Interpretation: normal SpO2: 97 Oxygen Delivery: Room Air - Course EKG Interpreted by Me: RATE, Sinus Rhythm, Sinus Tach, NORMAL AXIS, Non- specific ST Changes - CT Exams Abdomen/Pelvis CT Interpretation: Tele-radiologist Report (MILD WALL THICKENING OF THE MID DESCENDING COLON WITH SOME SUBTLE ADJACENT STRANDING SUGGESTING MILD ACUTE DIVERTICULITIS, NO OBSTRUCTION, NEW FROM PRIOR L2 COMPRESSION FRACTURE WITH FRACTURE LINE EXTENDING FROM THE INFERIOR ENDPLATE TO TH POSTERIOR CORTEX) Ordered Tests: Active Orders 24 hr Category Date Time Status Bedrest with BRP/BSC ROUTINE Activity 12/17/17 03:15 Ordered Up With Assistance ROUTINE Activity 12/17/17 03:18 Ordered Admission/Status Order ROUTINE Care 12/17/17 03:15 Ordered Call Admit Doctor for Orders ROUTINE Care 12/17/17 03:15 Ordered [employer] STAT Care 12/17/17 00:58 Active Code Status Order ROUTINE Care 12/17/17 03:15 Ordered EKG-ER Only STAT Care 12/17/17 00:57 Active IV Care Q6H Care 12/17/17 03:15 Ordered Implement Chest Pain Pathway ROUTINE Care 12/17/17 03:15 Ordered Oxygen-ED Only NASAL CANNULA 2 lpm Care 12/17/17 00:57 Active Anatoliy Matute, Apply ROUTINE Care 12/17/17 03:15 Ordered Telemetry ROUTINE Care 12/17/17 03:15 Ordered Vital Signs Q4H Care 12/17/17 03:15 Ordered Weight,Daily 0600 Care 12/17/17 03:15 Ordered NPO except Meds Diet 12/17/17 07:00 Ordered ABDOMEN AND PELVIS W/0 CONTRAS [CT] Stat Exams 12/17/17 02:15 Taken CHEST 1 VIEW (PORTABLE) Stat Exams 12/17/17 00:58 Taken AMYLASE Stat Lab 12/17/17 00:45 Completed BLOOD CULTURE Stat Lab 12/17/17 02:16 Ordered CBC W DIFF Stat Lab 12/17/17 00:45 Completed CMP Stat Lab 12/17/17 00:45 Completed LIPASE Stat Lab 12/17/17 00:45 Completed LIPID PROFILE AM.LAB Lab 12/17/17 04:00 Ordered Manual Differential NC Stat Lab 12/17/17 00:45 Completed NT PRO BNP Stat Lab 12/17/17 00:45 Completed TROPONIN Q3H Lab 12/17/17 00:45 Completed TROPONIN Q3H Lab 12/17/17 04:00 Ordered TROPONIN Q3H Lab 12/17/17 07:00 Ordered TROPONIN Q3H Lab 12/17/17 10:00 Ordered TROPONIN Q3H Lab 12/17/17 13:00 Ordered UA W/RFX UR CULTURE Stat Lab 12/17/17 02:15 Ordered EKG Q8HX2,QAMX3,PRN RT 12/17/17 03:15 Ordered Pulse Oximetry Q4H RT 12/17/17 03:15 Ordered Transfer Order Routine Transfer 12/17/17 Ordered Medication Summary Generic Name Dose Route Start Last Admin Trade Name Freq PRN Reason Stop Dose Admin Sodium Chloride 1,000 mls @ 50 mls/hr 12/17/17 01:00 12/17/17 01:36 Sodium Chloride 0.9% 1000 Ml IV 01/16/18 00:59 50 mls/hr .Q20H NKECHI Administration Discontinued Medications Generic Name Dose Route Start Last Admin Trade Name Ximena PRN Reason Stop Dose Admin Aspirin 324 mg 12/17/17 01:03 12/17/17 01:35 Baby Aspirin 81 Mg Chew PO 12/17/17 01:04 324 mg STAT ONE Administration Aspirin Confirm 12/17/17 01:28 Baby Aspirin 81 Mg Chew Administered 12/17/17 01:29 Dose 324 mg .ROUTE .STK-MED ONE Metoprolol Tartrate 2.5 mg 12/17/17 01:10 12/17/17 01:36 Lopressor 5 Mg/5 Ml Injection IV 12/17/17 01:11 2.5 mg STAT ONE Administration Metoprolol Tartrate Confirm 12/17/17 01:29 Lopressor 5 Mg/5 Ml Injection Administered 12/17/17 01:30 Dose 5 mg IV .STK-MED ONE Nitroglycerin 0.4 mg 12/17/17 01:03 12/17/17 01:36 Nitrostat 0.4 Mg (Ed) SL 12/17/17 01:04 0.4 mg STAT ONE Administration Nitroglycerin Confirm 12/17/17 01:29 Nitrostat 0.4 Mg (Ed) Administered 12/17/17 01:30 Dose 0.4 mg SL .STK-MED ONE Ondansetron HCl 4 mg 12/17/17 00:57 12/17/17 01:37 Zofran 4 Mg/2 Ml Vial IV 12/17/17 00:58 4 mg STAT ONE Administration Ondansetron HCl Confirm 12/17/17 01:28 Zofran 4 Mg/2 Ml Vial Administered 12/17/17 01:29 Dose 4 mg .ROUTE .STK-MED ONE Lab/Rad Data: Laboratory Result Diagrams 12/17/17 00:45 12/17/17 00:45 Laboratory Results 12/17/17 12/17/17 12/17/17 Range/Units 00:45 00:45 00:45 WBC (4.0-10.5) K/mm3 RBC (4.1-5.4) M/mm3 Hgb (12.0-16.0) gm/dl Hct (35-47) % MCV (78-100) fl MCH (26-32) pg MCHC (32-36) g/dl RDW (11.5-14.0) % Plt Count (150-450) K/mm3 MPV (6-9.5) fl Sodium 135 L (136-145) mEq/L Potassium 3.6 (3.5-5.1) mEq/L Chloride 93 L (98-107) mEq/L Carbon Dioxide 27.8 (21-32) mEq/L Anion Gap 17.8 H (5-15) MEQ/L BUN 30 H (9-20) mg/dL Creatinine 1.68 H (0.55-1.30) mg/dl Estimated GFR 31 ML/MIN Glucose 175 H (70-110) MG/DL Calcium 10.0 (8.5-10.1) mg/dL Total Bilirubin 0.40 (0.2-1.0) mg/dL AST 31 (15-37) U/L ALT 16 (12-78) U/L Alkaline Phosphatase 87 (46-116) U/L Troponin I < 0.017 (0.000-0.056) ng/ml NT-Pro-B Natriuret Pep 225 (0-450) pg/ml Serum Total Protein 8.1 (6.4-8.2) gm/dL Albumin 3.8 (3.4-5.0) g/dL Amylase 69 (25-115) U/L Lipase 394 H (73-393) U/L 12/17/17 Range/Units 00:45 WBC 23.2 H (4.0-10.5) K/mm3 RBC 4.47 (4.1-5.4) M/mm3 Hgb 12.7 (12.0-16.0) gm/dl Hct 38.4 (35-47) % MCV 85.9 (78-100) fl MCH 28.4 (26-32) pg MCHC 33.1 (32-36) g/dl RDW 15.7 H (11.5-14.0) % Plt Count 329 (150-450) K/mm3 MPV 9.4 (6-9.5) fl Sodium (136-145) mEq/L Potassium (3.5-5.1) mEq/L Chloride (98-107) mEq/L Carbon Dioxide (21-32) mEq/L Anion Gap (5-15) MEQ/L BUN (9-20) mg/dL Creatinine (0.55-1.30) mg/dl Estimated GFR ML/MIN Glucose (70-110) MG/DL Calcium (8.5-10.1) mg/dL Total Bilirubin (0.2-1.0) mg/dL AST (15-37) U/L ALT (12-78) U/L Alkaline Phosphatase (46-116) U/L Troponin I (0.000-0.056) ng/ml NT-Pro-B Natriuret Pep (0-450) pg/ml Serum Total Protein (6.4-8.2) gm/dL Albumin (3.4-5.0) g/dL Amylase (25-115) U/L Lipase (73-393) U/L - Progress Progress Note: 12/17/17 01:15 ABLE TO TOLERATE TO SWALLOW 6OOZ OF WATER, ADMINISTERED IV NORMAL SALINE 50ML/ HR, 4 BABY ASPIRIN, NTG0.4MG SL 12/17/17 03:11 ZOSYN 3.375GM IVPB Blood Culture(s) Obtained: Yes Antibiotics given: Yes Discussed with : Peter (DISCUSSED WITH DR MINAYA AT 0230 FOR ADMIT) - Departure Time of Disposition: 15:10 Departure Disposition: In-patient Admission Clinical Impression: ACUTE ATYPICAL CHEST PAIN, ACUTE DESCENDING COLITIS Condition: Stable Critical Care Time: No Referrals: TRINH MINAYA MD [Primary Care Provider] -
[2017-12-17] MEDS ORDERED: LOPRESSOR 5 MG/5 ML INJECTION IV ONE ×2 (01:10→01:29)
[2017-12-17 01:23] LABS: Granulocyte Absolute (ANC) 14.71 (1.4-6.9); Hematocrit 38.4 % (35-47); Hemoglobin 12.7 gm/dl (12.0-16.0); Mean Cell Volume 85.9 fl (78-100); Mean Corpuscular Hemoglobin 28.4 pg (26-32); Mean Corpuscular Hgb Concent. 33.1 g/dl (32-36); Mean Platelet Volume 9.4 fl (6-9.5); Platelet Count 329 K/mm3 (150-450); Red Blood Count 4.47 M/mm3 (4.1-5.4); Red Cell Distribution Width 15.7 % (11.5-14.0); White Blood Count 23.2 K/mm3 (4.0-10.5)
[2017-12-17] MEDS ORDERED: Zofran 4 MG/2 ML VIAL ONE (01:28)
[2017-12-17] MEDS ORDERED: BABY ASPIRIN 81 MG CHEW ONE (01:28)
[2017-12-17] MEDS ORDERED: Sodium Chloride 0.9% 1000 ML 1,000 ML ONE (01:29)
[2017-12-17 01:54] LABS: ALBUMIN 3.8 g/dL (3.4-5.0); ANION GAP 17.8 MEQ/L (5-15); BILIRUBIN,TOTAL 0.4 mg/dL (0.2-1.0); Carbon Dioxide 27.8 mEq/L (21-32); Creatinine 1 1.68 mg/dl (0.55-1.30); Potassium 3.6 mEq/L (3.5-5.1); Total Protein 8.1 gm/dL (6.4-8.2)
[2017-12-17 02:48] LABS: AMYLASE 69 U/L (25-115); LIPASE 394 U/L (73-393)
[2017-12-17] MEDS ORDERED: Nitrostat 0.4 MG Tablet SL PRN ×2 (03:15→07:18)
[2017-12-17] MEDS ORDERED: TYLENOL 325 MG PO PRN (03:15)
[2017-12-17] MEDS ORDERED: Senokot-S Tablet PO PRN ×2 (03:15→07:18)
[2017-12-17] MEDS ORDERED: Sodium Chloride 0.9% 500 ML 500 ML IV SCH (03:15)
[2017-12-17] MEDS ORDERED: Zofran 4 MG/2 ML VIAL IV PRN ×2 (03:15→07:21)
[2017-12-17] MEDS ORDERED: MAALOX ES 30 ML UNIT DOSE PO PRN ×2 (03:15→07:16)
[2017-12-17] MEDS ORDERED: NovoLOG Insulin SQ PRN ×2 (03:15→07:19)
[2017-12-17] MEDS ORDERED: MORPHINE SULFATE 2 MG INJ IV PRN ×2 (03:15→07:17)
[2017-12-17] MEDS ORDERED: MILK OF MAGNESIA 30 ML PO PRN ×2 (03:15→07:16)
[2017-12-17] MEDS ORDERED: Zosyn 3.375GM/100 Ml D5W 3.375 GM/100 ML IVPB IV ONE (03:29)
[2017-12-17 03:52] LABS: Eosinophil 2 % (0.00-3.0); Lymphocytes 23 % (24-44); Monocyte 4 % (0.0-12.0); Neutrophils 71 % (36.0-66.0); Platelet Estimate NORMAL (NORMAL); Total Cells Counted 100
[2017-12-17 03:53] LABS: ANISOCYTOSIS 1+
[2017-12-17 04:22] LABS: Risk Ratio 4.1
[2017-12-17] MEDS ORDERED: FLAGYL 500 MG IVPB 500 MG/100 ML BAG IV SCH (06:00)
[2017-12-17] MEDS ORDERED: Zosyn 3.375GM/100 Ml D5W 3.375 GM/100 ML IVPB IV SCH ×2 (06:00)
[2017-12-17] MEDS ORDERED: NITRO-BID 2% UD PACKETS TOP SCH (06:00)
[2017-12-17] MEDS: FLAGYL 500 MG IVPB 500 MG/100 ML BAG IV SCH ×3 (07:09→18:01)
--- NOTE | 2017-12-17 08:58 | XRAY ---
Indication: Left-sided abdominal pain and nausea. Multiple contiguous axial images obtained through the abdomen and pelvis without contrast as ordered. Comparison: May 21, 2017. Lung bases again demonstrates minimal left base atelectasis/scarring. No infiltrate or effusion. Heart is not enlarged. Stable small hiatal hernia. Noncontrasted stomach and bowel loops appear nonobstructed. Again mild/moderate diffuse scattered colonic fecal debris and diffuse scattered diverticulosis. Query new minimal pericolonic stranding in the proximal descending colon possibly mild/early diverticulitis. Normal appendix. No free fluid/air. Again previous hysterectomy. Stable small left lower pole renal cyst, left adrenal adenoma, and a few calcified splenic granulomas. Remaining liver, gallbladder, pancreas, spleen, right adrenal gland, kidneys, ureters, and bladder appear unremarkable for noncontrast exam. There remains moderate aortoiliac calcifications without AAA. Osseous structures intact again with mild osteopenia and minimal degenerative changes throughout the spine. New remote-appearing L2 inferior endplate fracture with approximately 25% height loss. Impression: 1. Again diffuse colonic diverticulosis. Query mild/early diverticulitis in the descending colon as detailed. 2. Fecal stasis without obstruction. 3. Stable left renal cyst, left adrenal adenoma, and small hiatal hernia. 4. New remote-appearing L2 inferior endplate fracture. Comment: Preliminary interpretation was made by [facility]. No discrepancy. CT DI 21.66
--- NOTE | 2017-12-17 09:00 | XRAY ---
Indication: Chest pain and nausea. Comparison: September 11, 2017. Portable chest remains clear again with a few incidental calcified granulomas. Heart and mediastinal structures within normal limits for AP portable technique. Bony thorax intact again with mild osteopenia and degenerative changes. Impression: Nonacute chest with chronic features.
[2017-12-17] MEDS ORDERED: ELIQUIS PO SCH (10:00)
[2017-12-17] MEDS ORDERED: Ecotrin 325 MG PO SCH ×2 (10:00)
[2017-12-17] MEDS ORDERED: SYNTHROID 100 MCG PO SCH (10:00)
[2017-12-17] MEDS ORDERED: Zestril 5 MG PO SCH (10:00)
[2017-12-17 10:47] LABS: Appearance CLEAR (CLEAR)
[2017-12-17 10:48] LABS: Leukocyte Esterase 2+ (NEGATIVE)
[2017-12-17 10:49] LABS: Bilirubin NEGATIVE (NEGATIVE); Blood NEGATIVE Ery/ul (0-5); Glucose NEGATIVE (NEGATIVE); Ketones NEGATIVE (NEGATIVE); Nitrite NEGATIVE (NEGATIVE); Protein,Urine Dip NEGATIVE (Negative); Urobilinogen NORMAL mg/dL (0-1)
[2017-12-17 10:50] LABS: Bacteria MODERATE /HPF (NEGATIVE); Epithelial Cells FEW /HPF (FEW)
--- NOTE | 2017-12-17 12:04 | PCM.HP ---
History of Present Illness - Chief Complaint Chief Complaint: COLITIS History of Present Illness: is a 77 year old female.came to ER with abdominal pain for 2 days.PATIENT WITH A HISTORY OF TYPE 2 DIABETES, HYPERTENSION, MYOCARDIAL INFARCTION X 2 COMPLAINS OF NAUSEA AT 9PM TONIGHT AFTER EATING SWALLOWING CANDY. HAS NAUSEA, PRESSURE DISCOMFORT INTO CHEST AND DIAPHORESIS. PATIENT ALSO COMPLAINS OF LEFT SIDED ABDOMINAL PAINS X 2 DAYS Timing/Duration: today Activities at Onset: none Location: substernal Severity of Pain-Max: moderate Severity of Pain-Current: moderate Associated Symptoms: nausea - Review of Systems Constitutional: No Fever, No Chills Eyes: No Symptoms Ears, Nose, & Throat: No Symptoms Respiratory: No Cough, No Short Of Breath Cardiac: Chest Pain, No Edema, No Syncope Abdominal/Gastrointestinal: Abdominal Pain, Diarrhea, No Nausea, No Vomiting Genitourinary Symptoms: No Dysuria Musculoskeletal: No Back Pain, No Neck Pain Skin: No Rash Neurological: No Dizziness, No Focal Weakness, No Sensory Changes Psychological: No Symptoms Endocrine: No Symptoms Hematologic/Lymphatic: No Symptoms Immunological/Allergic: No Symptoms Medications & Allergies Home Medications: Home Medication List Allopurinol 300 mg [Zyloprim 300 mg] 300 mg PO DAILY 11/30/16 [History Confirmed 12/17/17] Apixaban [Eliquis] 2.5 mg PO BID 11/30/16 [History Confirmed 12/17/17] Bumetanide 1 mg [Bumex 1 mg] 1 mg PO BID 11/30/16 [History Confirmed 12/17] Levothyroxine Sodium [Synthroid] 25 mcg PO DAILY 11/30/16 [History Confirmed 06/26] Levothyroxine Sodium [Synthroid] 200 mcg PO DAILY 11/30/16 [History Confirmed ] Magnesium Oxide 400 mg [Mag-Ox 400] 400 mg PO BID 11/30/16 [History Confirmed 12/17/17] Metolazone 2.5 mg [Zaroxolyn 2.5 MG] 2.5 mg PO DAILY 11/30/16 [History Confirmed 12/17/17] PANTOPRAZOLE 40 mg Tablet [Protonix 40MG Tablet] 40 mg PO DAILY 11/30/16 [ History Confirmed 12/17/17] Potassium Chloride [Klor-Con 10] 10 meq PO BID 11/30/16 [History Confirmed 12/17] Glyburide 5 mg [Micronase 5 MG] 2.5 mg PO HS 05/21/17 [History Confirmed 12/17/17] Lisinopril 5 mg [Zestril 5 MG] 2.5 mg PO DAILY 05/21/17 [History Confirmed 12/17/17] Nitroglycerin 0.4 mg Tablet [Nitrostat 0.4 MG Tablet] 0.4 mg SL Q5MIN PRN MR X 3 PRN 05/21/17 [History Confirmed 12/17/17] Vitamin B Complex [Super B-50 Complex] 1 each PO DAILY 05/21/17 [History Confirmed 12/17/17] Cyclobenzaprine HCl 10 mg [Cyclobenzaprine 10 MG] 10 mg PO TID 12/17/17 [ History Confirmed 12/17/17] Tamsulosin HCl [Tamsulosin HCl] 0.4 mg PO HS 12/17/17 [History Confirmed ] Allergies/Adverse Reactions: Allergies Allergy/AdvReac Type Severity Reaction Status Date / Time ofloxacin [From Floxin] Allergy Verified 03/11/16 01:02 Sulfa (Sulfonamide Allergy Verified 03/11/16 01:02 Antibiotics) [Sulfa(Sulfonamide Antibiotics)] - Past Medical History Past Medical History: Yes Neurological History: Peripheral Neuropathy ENT History: No Pertinent History Cardiac History: Congestive Heart Failure, Hypertension, Myocardial Infarction ( [place]) Respiratory History: CHF, COPD, Emphysema, Pulmonary Embolism Endocrine Medical History: Diabetes Type II, Hypothyroidism Musculoskelatal History: Arthritis, Degenerative Disk Disease, Osteoarthritis, Rheumatoid Arthritis GI Medical History: Diverticulosis, Hemorrhoids, Hernia History: Dialysis, Renal Disease Pyscho-Social History: No Pertinent History Reproductive Disorders: No Pertinent History Comment: 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 , 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 - Female History Are you now?: No - Past Surgical History Past Surgical History: Yes Neuro Surgical History: No Pertinent History Cardiac History: Cardiac Catheterization Respiratory Surgery: No Pertinent History GI Surgical History: No Pertinent History Genitourinary Surgical Hx: No Pertinent History Musculskeletal Surgical Hx: No Pertinent History Female Surgical History: Hysterectomy, Lumpectomy Other Surgical History: breast tumor removed, tumor removed from back benign, 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 - Social History Smoking Status: Never smoker Exposure to second hand smoke: Yes Alcohol: None Drug Use: none - Physical Exam Vital Signs: Vital Signs - 24 hr Temp Pulse Pulse Resp BP Pulse Ox 12/17/17 09:33 98 F 12/17/17 07:42 98 F 80 20 122/68 97 12/17/17 05:14 98.5 F 82 18 117/57 94 L 12/17/17 03:29 97 12/17/17 02:14 76 18 138/66 12/17/17 01:49 90 121/61 12/17/17 01:22 91 H 148/63 97 12/17/17 00:35 97.7 F 95 H 98 H 20 140/59 97 General Appearance: no apparent distress, alert Neurologic Exam: alert, oriented x 3, cooperative, normal mood/affect, nml cerebellar function, nml station & gait, sensation nml, No motor deficits Eye Exam: PERRL/EOMI, eyes nml inspection Ears, Nose, Throat Exam: normal ENT inspection, TMs normal, pharynx normal, moist mucous membranes Neck Exam: normal inspection, non-tender, supple, full range of motion Respiratory Exam: normal breath sounds, lungs clear, No respiratory distress Cardiovascular Exam: regular rate/rhythm, normal heart sounds, normal peripheral pulses Gastrointestinal/Abdomen Exam: soft, tenderness, No mass, No guarding Back Exam: normal inspection, normal range of motion, No CVA tenderness, No vertebral tenderness Extremity Exam: normal inspection, normal range of motion, pelvis stable Skin Exam: normal color, warm, dry, No rash Lymphatic Exam: No adenopathy Results - Labs Lab/Micro Results: Lab Results-Last 24 Hours 12/17/17 12/17/17 12/17/17 Range/Units 07:17 10:10 10:15 Troponin I < 0.017 < 0.017 (0.000-0.056) ng/ml Ur Collection Type VOID Urine Color YELLOW (YELLOW) Urine Appearance CLEAR (CLEAR) Urine pH 6.0 (5-6) Ur Specific [place] 1.010 (1.005-1.025) Urine Protein NEGATIVE (Negative) Urine Ketones NEGATIVE (NEGATIVE) Urine Blood NEGATIVE (0-5) Quentin/ul Urine Nitrite NEGATIVE (NEGATIVE) Urine Bilirubin NEGATIVE (NEGATIVE) Urine Urobilinogen NORMAL (0-1) mg/dL Ur Leukocyte Esterase 2+ (NEGATIVE) Urine Microscopic RBC 0-2 (0-2) /HPF Urine Microscopic WBC 2-5 (0-5) /HPF Ur Epithelial Cells FEW (FEW) /HPF Urine Bacteria MODERATE (NEGATIVE) /HPF Urine Culture Reflexed YES (NO) Urine Glucose NEGATIVE (NEGATIVE) mg/dL Specimen Received 12/18@1030 - Other Procedures and Tests Respiratory Therapy 12/18/17 05:00 EKG ONCE 12/19/17 05:00 EKG ONCE Assessment/Plan (1) Diverticul disease small and large intestine, no perforati or abscess Current Visit: Yes Status: Acute Assessment & Plan: Chief Complaint Diagnosis COLITIS Allergies Allergy/AdvReac Type Severity Reaction Status Date / Time ofloxacin [From Floxin] Allergy Verified 03/11/16 01:02 Sulfa (Sulfonamide Allergy Verified 03/11/16 01:02 Antibiotics) [Sulfa(Sulfonamide Antibiotics)] Vital Signs (Last 24 hours) Temp Pulse Resp BP Pulse Ox 12/18/17 16:00 98.4 F 74 16 108/53 97 12/18/17 11:32 98.3 F 87 16 115/55 96 12/18/17 08:00 98.1 F 79 16 110/51 94 L 12/18/17 04:00 97.8 F 82 15 118/58 96 12/18/17 00:00 98.8 F 89 16 119/57 97 12/17/17 20:00 98.7 F 86 18 117/57 97 Home Medications Medication Instructions Recorded Confirmed Last Taken Type Cyclobenzaprine HCl 10 mg 10 mg PO TID 12/17/17 12/17/17 Unknown History [Cyclobenzaprine 10 MG] Tamsulosin HCl [Tamsulosin HCl] 0.4 mg PO HS 12/17/17 12/17/17 Unknown History Current Medications Generic Name Dose Route Start Last Admin Trade Name Freq PRN Reason Stop Dose Admin Acetaminophen 650 mg 12/17/17 07:21 12/18/17 01:02 Tylenol 325 Mg PO 01/16/18 07:20 650 mg Q4H PRN PRN Administration PAIN AND/OR FEVER Al Hydrox/Mg Hydrox/Simethicone 30 ml 12/17/17 07:16 Maalox Es 30 Ml Unit Dose PO 01/16/18 07:15 Q4H PRN PRN INDIGESTION Allopurinol 300 mg 12/17/17 12:00 12/18/17 08:53 Zyloprim 300 Mg PO 01/16/18 11:59 300 mg DAILY [facility] Administration Apixaban 2.5 mg 12/17/17 10:00 12/18/17 08:53 Eliquis PO 01/16/18 09:59 2.5 mg BID NKECHI Administration Aspirin 325 mg 12/17/17 10:00 12/18/17 08:52 Ecotrin 325 Mg PO 01/16/18 09:59 325 mg DAILY N[facility] Administration Bumetanide 1 mg 12/17/17 12:00 12/18/17 17:39 Bumex 1 Mg PO 01/16/18 11:59 1 mg BID DIURETIC NKECHI Administration Cyclobenzaprine HCl 10 mg 12/17/17 15:00 12/18/17 14:27 Cyclobenzaprine 10 Mg PO 01/16/18 14:59 10 mg TID N[facility]I Administration Glimepiride 2 mg 12/18/17 08:00 12/18/17 08:51 Amaryl 2 Mg PO 01/17/18 07:59 2 mg BREAKFAST N[facility]I Administration Metronidazole 500 mg in 100 mls @ 200 mls/hr 12/17/17 06:00 12/18/17 17:39 Flagyl 500 Mg Ivpb IV 01/16/18 05:59 200 mls/hr Q6HT [facility] Administration Sodium Chloride 1,000 mls @ 75 mls/hr 12/17/17 07:30 12/18/17 15:59 Sodium Chloride 0.9% 1000 Ml IV 01/16/18 07:29 75 mls/hr .[id number] [facility] Administration Piperacillin Sod/Tazobactam Sod 3.375 gm in 100 mls @ 200 mls/hr 12/17/17 12: 00 12/18/17 17:39 Zosyn 3.375gm/100 Ml D5w IV 01/16/18 11:59 200 mls/hr Q6HT [facility] Administration Insulin Aspart 0 unit 12/17/17 07:19 Novolog Insulin SQ 01/16/18 07:18 PRN PRN HYPERGLYCEMIA Levothyroxine Sodium 200 mcg 12/17/17 10:00 12/18/17 08:52 Synthroid 100 Mcg PO 01/16/18 09:59 200 mcg QAM [facility] Administration Levothyroxine Sodium 25 mcg 12/17/17 12:00 12/18/17 08:53 Synthroid 25 Mcg PO 01/16/18 11:59 25 mcg DAILY [facility] Administration Lisinopril 2.5 mg 12/17/17 10:00 12/18/17 08:52 Zestril 5 Mg PO 01/16/18 09:59 2.5 mg DAILY [facility] Administration Magnesium Hydroxide 30 - 60 ml 12/17/17 07:16 Milk Of Magnesia 30 Ml PO 01/16/18 07:15 QDP PRN CONSTIPATION Magnesium Oxide 400 mg 12/17/17 12:00 12/18/17 08:53 Mag-Ox 400 PO 01/16/18 11:59 400 mg BID N[facility] Administration Metolazone 2.5 mg 12/17/17 12:00 12/18/17 08:52 Zaroxolyn 2.5 Mg PO 01/16/18 11:59 2.5 mg DAILY [facility] Administration Morphine Sulfate 2 mg 12/17/17 07:17 Morphine Sulfate 2 Mg Inj IV 12/22/17 12:00 Q4H PRN PRN CHEST PAIN Multivitamins 1 tab 12/17/17 12:00 12/18/17 08:51 Melissa-Bee With C PO 01/16/18 11:59 1 tab DAILY [facility] Administration Nitroglycerin 1 gm 12/17/17 07:30 12/18/17 14:22 Nitro-Bid 2% Ud Packets TOP 01/16/18 07:29 1 gm Q8HT [facility] Administration Nitroglycerin 0.4 mg 12/17/17 07:18 Nitrostat 0.4 Mg Tablet SL 01/16/18 07:17 .Q5MIN PRN CHEST PAIN Ondansetron HCl 4 mg 12/17/17 07:21 Zofran 4 Mg/2 Ml Vial IV 01/16/18 07:20 Q4H PRN PRN NAUSEA/VOMITING Pantoprazole Sodium 40 mg 12/17/17 12:00 12/18/17 08:52 Protonix 40mg Tablet PO 01/16/18 11:59 40 mg DAILY [facility] Administration Potassium Chloride 10 meq 12/17/17 12:00 12/18/17 08:52 Klor Con 10 Meq PO 01/16/18 11:59 10 meq BID N[facility] Administration Senna/Docusate Sodium 2 udtab 12/17/17 07:18 Senokot-S Tablet PO 01/16/18 07:17 BID PRN PRN CONSTIPATION Tamsulosin HCl 0.4 mg 12/17/17 22:00 12/17/17 22:42 Flomax 0.4 Mg PO 01/16/18 21:59 0.4 mg HS [facility] Administration Discontinued Medications Generic Name Dose Route Start Last Admin Trade Name Freq PRN Reason Stop Dose Admin Acetaminophen 650 mg 12/17/17 03:15 Tylenol 325 Mg PO 01/16/18 03:14 Q4H PRN PRN PAIN AND/OR FEVER Al Hydrox/Mg Hydrox/Simethicone 30 ml 12/17/17 03:15 Maalox Es 30 Ml Unit Dose PO 01/16/18 03:14 Q4H PRN PRN INDIGESTION Apixaban 2.5 mg 12/17/17 10:00 Eliquis PO 01/16/18 09:59 BID [facility] Aspirin 324 mg 12/17/17 01:03 12/17/17 01:35 Baby Aspirin 81 Mg Chew PO 12/17/17 01:04 324 mg STAT ONE Administration Aspirin Confirm 12/17/17 01:28 Baby Aspirin 81 Mg Chew Administered 12/17/17 01:29 Dose 324 mg .ROUTE .STK-MED ONE Aspirin 325 mg 12/17/17 10:00 Ecotrin 325 Mg PO 01/16/18 09:59 DAILY [facility] Aspirin 325 mg 12/17/17 10:00 Ecotrin 325 Mg PO 01/16/18 09:59 DAILY [facility] Glyburide 2.5 mg 12/17/17 22:00 Micronase 5 Mg PO 01/16/18 21:59 HS [facility] Sodium Chloride 1,000 mls @ 50 mls/hr 12/17/17 01:00 12/17/17 01:36 Sodium Chloride 0.9% 1000 Ml IV 01/16/18 00:59 50 mls/hr .Q20H [facility] Administration Metronidazole 500 mg in 100 mls @ 200 mls/hr 12/17/17 06:00 Flagyl 500 Mg Ivpb IV 01/16/18 05:59 Q6HT [facility] Piperacillin Sod/Tazobactam Sod 3.375 gm in 100 mls @ 200 mls/hr 12/17/17 06: 00 Zosyn 3.375gm/100 Ml D5w IV 01/16/18 05:59 Q6HT [facility] Sodium Chloride 500 mls @ 75 mls/hr 12/17/17 03:15 Sodium Chloride 0.9% 500 Ml IV 01/16/18 03:14 .Q6H40M [facility] Piperacillin Sod/Tazobactam Sod Confirm 12/17/17 03:29 Zosyn 3.375gm/100 Ml D5w Administered 12/17/17 03:30 Dose 3.375 gm in 100 mls @ ud IV .STK-MED ONE Sodium Chloride Confirm 12/17/17 01:29 Sodium Chloride 0.9% 1000 Ml Administered 12/17/17 01:30 Dose 1,000 mls @ ud .ROUTE .STK-MED ONE Piperacillin Sod/Tazobactam Sod 3.375 gm in 100 mls @ 200 mls/hr 12/17/17 06: 00 12/17/17 05:55 Zosyn 3.375gm/100 Ml D5w IV 01/16/18 05:59 200 mls/hr Q6HT [facility] Administration Insulin Aspart 0 unit 12/17/17 03:15 Novolog Insulin SQ 01/16/18 03:14 PRN PRN HYPERGLYCEMIA Levothyroxine Sodium 200 mcg 12/17/17 10:00 Synthroid 100 Mcg PO 01/16/18 09:59 QAM [facility] Lisinopril 2.5 mg 12/17/17 10:00 Zestril 5 Mg PO 01/16/18 09:59 DAILY [facility] Magnesium Hydroxide 30 - 60 ml 12/17/17 03:15 Milk Of Magnesia 30 Ml PO 01/16/18 03:14 QDP PRN CONSTIPATION Metoprolol Tartrate 2.5 mg 12/17/17 01:10 12/17/17 01:36 Lopressor 5 Mg/5 Ml Injection IV 12/17/17 01:11 2.5 mg STAT ONE Administration Metoprolol Tartrate Confirm 12/17/17 01:29 Lopressor 5 Mg/5 Ml Injection Administered 12/17/17 01:30 Dose 5 mg IV .STK-MED ONE Morphine Sulfate 2 mg 12/17/17 03:15 Morphine Sulfate 2 Mg Inj IV 12/22/17 03:14 Q4H PRN PRN CHEST PAIN Nitroglycerin 0.4 mg 12/17/17 01:03 12/17/17 01:36 Nitrostat 0.4 Mg (Ed) SL 12/17/17 01:04 0.4 mg STAT ONE Administration Nitroglycerin Confirm 12/17/17 01:29 Nitrostat 0.4 Mg (Ed) Administered 12/17/17 01:30 Dose 0.4 mg SL .STK-MED ONE Nitroglycerin 0.4 mg 12/17/17 03:15 Nitrostat 0.4 Mg Tablet SL 01/16/18 03:14 .Q5MIN PRN CHEST PAIN Nitroglycerin 1 gm 12/17/17 06:00 Nitro-Bid 2% Ud Packets TOP 01/16/18 05:59 Q8HT [facility] Ondansetron HCl 4 mg 12/17/17 00:57 12/17/17 01:37 Zofran 4 Mg/2 Ml Vial IV 12/17/17 00:58 4 mg STAT ONE Administration Ondansetron HCl Confirm 12/17/17 01:28 Zofran 4 Mg/2 Ml Vial Administered 12/17/17 01:29 Dose 4 mg .ROUTE .STK-MED ONE Ondansetron HCl 4 mg 12/17/17 03:15 Zofran 4 Mg/2 Ml Vial IV 01/16/18 03:14 Q4H PRN PRN NAUSEA/VOMITING Senna/Docusate Sodium 2 udtab 12/17/17 03:15 Senokot-S Tablet PO 01/16/18 03:14 BID PRN PRN CONSTIPATION Intake & Output (Last 24 hours) 12/16/17 12/17/17 12/18/17 12/19/17 11:59 11:59 11:59 11:59 Intake Total 0 2383 1925 Output Total 400 1850 800 Balance -457 782 8686 Weight 81.6 kg 84.1 kg Microbiology Results (Last 24 hours) 12/17/17 10:15 Clean Catch Midstream - Preliminary NO GROWTH TO DATE 12/17/17 03:30 Blood - Pending 12/17/17 03:30 Blood Blood Culture - Preliminary NO GROWTH TO DATE 12/17/17 00:45 Blood - Pending 12/17/17 00:45 Blood Blood Culture - Preliminary NO GROWTH TO DATE Orders (Last 24 hours) Category Date Time Status Miscellaneous Nursing Order ROUTINE Care 12/18/17 12:10 Active [place] Diet Diet 12/18/17 Dinner Active Glimepiride 2 mg [Amaryl 2 MG] Med 12/18/17 08:00 Active 2 mg PO BREAKFAST Glyburide 5 mg [Micronase 5 MG] Med 12/17/17 22:00 Discontinued 2.5 mg PO HS Tamsulosin HCl 0.4 mg [Flomax 0.4 MG] Med 12/17/17 22:00 Active 0.4 mg PO HS EKG ONCE RT 12/18/17 05:00 Completed EKG ONCE RT 12/19/17 05:00 Active EKG ROUTINE RT 12/20/17 05:00 Active Patient Care Notes (Last 24 hours) 12/18/17 12:10 (created 12/18/17 12:25) Case Management Note by Ginette Hardin DR. ROUNDED AND EVALUATED, DISCUSSED PLAN OF CARE WITH PT. VERBALIZED UNDERSTANDING AND ABLE TO REPEAT INFORMATION BACK. CONTINUES TO DECLINE ADDNL NEEDS FOR DISCHARGE. PLANNING TO RETURN HOME TO PRE EPISODIC LEVEL OF [place]. INDEPENDENT WITH ALL ADL'S. PT IS CURRENTLY SITTING UP AND EATING LUNCH. CL IN REACH. WILL FOLLOW FOR ALL DC NEEDS. Initialized on 12/18/17 12:25 - END OF NOTE Code(s): K57.50 - DVRTCLOS OF BOTH SM AND LG INT W/O PERF OR ABSCS W/O BLEED (2) Abdominal pain, acute, right upper quadrant Current Visit: Yes Status: Acute Code(s): R10.11 - RIGHT UPPER QUADRANT PAIN (3) Diabetic neuropathy associated with type 2 diabetes mellitus Current Visit: Yes Status: Chronic Qualifiers: Diabetes mellitus complication detail: with other neurological complication Qualified Code(s): E11.49 - Type 2 diabetes mellitus with other diabetic neurological complication Code(s): E11.40 - TYPE 2 DIABETES MELLITUS WITH DIABETIC NEUROPATHY, UNSP
[2017-12-17] MEDS: Zosyn 3.375GM/100 Ml D5W 3.375 GM/100 ML IVPB IV SCH ×2 (13:18→18:00)
[2017-12-17] MEDS: ELIQUIS PO SCH ×2 (13:24→22:41)
[2017-12-17] MEDS: SYNTHROID 100 MCG PO SCH (13:24)
[2017-12-17] MEDS: Ecotrin 325 MG PO SCH (13:24)
[2017-12-17] MEDS: Zestril 5 MG PO SCH (13:25)
[2017-12-17] MEDS: SYNTHROID 25 MCG PO SCH (13:33)
[2017-12-17] MEDS: MAG-OX 400 PO SCH ×2 (13:39→22:42)
[2017-12-17] MEDS: Klor Con 10 MEQ PO SCH ×2 (13:39→22:42)
[2017-12-17] MEDS: Protonix 40MG Tablet PO SCH (13:39)
[2017-12-17] MEDS: BUMEX 1 MG PO SCH ×2 (13:39→18:13)
[2017-12-17] MEDS: Zaroxolyn 2.5 MG PO SCH (13:39)
[2017-12-17] MEDS: VITA-BEE WITH C PO SCH (13:40)
[2017-12-17] MEDS: NITRO-BID 2% UD PACKETS TOP SCH ×3 (13:40→22:42)
[2017-12-17] MEDS: ZYLOPRIM 300 MG PO SCH (18:01)
[2017-12-17] MEDS: Cyclobenzaprine 10 MG PO SCH ×2 (18:12→22:41)
[2017-12-17] MEDS: Sodium Chloride 0.9% 1000 ML 1,000 ML IV SCH (20:53)
[2017-12-17] MEDS ORDERED: Micronase 5 MG PO SCH (22:00)
[2017-12-17] MEDS: Flomax 0.4 MG PO SCH (22:42)
[2017-12-18] MEDS: FLAGYL 500 MG IVPB 500 MG/100 ML BAG IV SCH ×5 (00:06→23:40)
[2017-12-18] MEDS: Zosyn 3.375GM/100 Ml D5W 3.375 GM/100 ML IVPB IV SCH ×4 (01:01→17:39)
[2017-12-18] MEDS: TYLENOL 325 MG PO PRN ×2 (01:02→21:48)
[2017-12-18] MEDS: NITRO-BID 2% UD PACKETS TOP SCH ×3 (05:23→21:55)
[2017-12-18] MEDS: VITA-BEE WITH C PO SCH (08:51)
[2017-12-18] MEDS: Amaryl 2 MG PO SCH (08:51)
[2017-12-18] MEDS: Zaroxolyn 2.5 MG PO SCH (08:52)
[2017-12-18] MEDS: Klor Con 10 MEQ PO SCH ×2 (08:52→21:48)
[2017-12-18] MEDS: Protonix 40MG Tablet PO SCH (08:52)
[2017-12-18] MEDS: Ecotrin 325 MG PO SCH (08:52)
[2017-12-18] MEDS: Zestril 5 MG PO SCH (08:52)
[2017-12-18] MEDS: BUMEX 1 MG PO SCH ×2 (08:52→17:39)
[2017-12-18] MEDS: SYNTHROID 100 MCG PO SCH (08:52)
[2017-12-18] MEDS: SYNTHROID 25 MCG PO SCH (08:53)
[2017-12-18] MEDS: ZYLOPRIM 300 MG PO SCH (08:53)
[2017-12-18] MEDS: MAG-OX 400 PO SCH ×2 (08:53→21:48)
[2017-12-18] MEDS: ELIQUIS PO SCH ×2 (08:53→21:48)
[2017-12-18] MEDS: Cyclobenzaprine 10 MG PO SCH ×3 (08:53→21:48)
[2017-12-18] MEDS ORDERED: VITAMIN B COMPLEX PO SCH (10:00)
[2017-12-18] MEDS: Sodium Chloride 0.9% 1000 ML 1,000 ML IV SCH (15:59)
--- NOTE | 2017-12-18 17:50 | PCM.NOTE ---
Date and Time: 12/18/171748 Subjective Assessment: doing better today - Review of Systems Constitutional: No Fever, No Chills Eyes: No Symptoms Ears, Nose, & Throat: No Symptoms Respiratory: No Cough, No Short Of Breath Cardiac: No Chest Pain, No Edema, No Syncope Abdominal/Gastrointestinal: Abdominal Pain, No Nausea, No Vomiting, No Diarrhea Genitourinary Symptoms: No Dysuria Musculoskeletal: No Back Pain, No Neck Pain Skin: No Rash Neurological: No Dizziness, No Focal Weakness, No Sensory Changes Psychological: No Symptoms Endocrine: No Symptoms Hematologic/Lymphatic: No Symptoms Immunological/Allergic: No Symptoms Objective Exam General Appearance: no apparent distress, alert Neurologic Exam: alert, oriented x 3, cooperative, normal mood/affect, nml cerebellar function, sensation nml, No motor deficits Skin Exam: normal color, warm, dry Eye Exam: PERRL, EOMI, eyes nml inspection Ears, Nose, Throat Exam: normal ENT inspection, pharynx normal, moist mucous membranes Neck Exam: normal inspection, non-tender, supple, full range of motion Respiratory Exam: normal breath sounds, lungs clear, No respiratory distress Cardiovascular Exam: regular rate/rhythm, normal heart sounds Gastrointestinal/Abdomen Exam: soft, No tenderness, No mass Extremity Exam: normal inspection, normal range of motion Back Exam: normal inspection, normal range of motion, No CVA tenderness, No vertebral tenderness Pelvic Exam: deferred Rectal Exam: deferred OBJECTIVE DATA Vital Signs: Vital Signs - 24 hr Temp Pulse Resp BP Pulse Ox 12/18/17 16:00 98.4 F 74 16 108/53 97 12/18/17 11:32 98.3 F 87 16 115/55 96 12/18/17 08:00 98.1 F 79 16 110/51 94 L 12/18/17 04:00 97.8 F 82 15 118/58 96 12/18/17 00:00 98.8 F 89 16 119/57 97 12/17/17 20:00 98.7 F 86 18 117/57 97 Pain Assessment - Last Documented Pain Intensity 2 Pain Scale Used 0-10 Pain Scale Intake and Output: Intake & Output 12/16/17 12/17/17 12/18/17 12/19/17 11:59 11:59 11:59 11:59 Intake Total 0 2383 1925 Output Total 400 1850 800 Balance -162 755 2275 Weight 81.6 kg 84.1 kg Lab Results: Accuchecks Date 12/18/17 Date 12/18/17 Date 12/18/17 Accucheck Value: 125 Accucheck Value: 123 Accucheck Value: 172 Accucheck Value: 96 Multi-Disciplinary Progress Notes: Multi-Disciplinary Progress Notes 12/18/17 12:10 (created 12/18/17 12:25) Case Management Note by Ginette Hardin DR. ROUNDED AND EVALUATED, DISCUSSED PLAN OF CARE WITH PT. VERBALIZED UNDERSTANDING AND ABLE TO REPEAT INFORMATION BACK. CONTINUES TO DECLINE ADDNL NEEDS FOR DISCHARGE. PLANNING TO RETURN HOME TO PRE EPISODIC LEVEL OF [place]. INDEPENDENT WITH ALL ADL'S. PT IS CURRENTLY SITTING UP AND EATING LUNCH. CL IN REACH. WILL FOLLOW FOR ALL DC NEEDS. Initialized on 12/18/17 12:25 - END OF NOTE Assessment/Plan (1) Diverticul disease small and large intestine, no perforati or abscess Current Visit: Yes Status: Acute Assessment & Plan: Last Vital Signs Temp 98.4 F 12/18/17 16:00 Pulse 74 12/18/17 16:00 Resp 16 12/18/17 16:00 BP 108/53 12/18/17 16:00 Pulse Ox 97 12/18/17 16:00 Allergies ofloxacin [From Floxin] Allergy (Verified 03/11/16 01:02) Sulfa (Sulfonamide Antibiotics) [Sulfa(Sulfonamide Antibiotics)] Allergy ( Verified 03/11/16 01:02) Active Medications Acetaminophen (Tylenol 325 Mg) 650 mg PO Q4H PRN PRN PRN Reason: PAIN AND/OR FEVER Stop: 01/16/18 07:20 Last Admin: 12/18/17 01:02 Dose: 650 mg Al Hydrox/Mg Hydrox/Simethicone (Maalox Es 30 Ml Unit Dose) 30 ml PO Q4H PRN PRN PRN Reason: INDIGESTION Stop: 01/16/18 07:15 Allopurinol (Zyloprim 300 Mg) 300 mg PO DAILY [facility] Stop: 01/16/18 11:59 Last Admin: 12/18/17 08:53 Dose: 300 mg Apixaban (Eliquis) 2.5 mg PO BID [facility] Stop: 01/16/18 09:59 Last Admin: 02/09/18 08:53 Dose: 2.5 mg Aspirin (Ecotrin 325 Mg) 325 mg PO DAILY [facility] Stop: 01/16/18 09:59 Last Admin: 12/18/17 08:52 Dose: 325 mg Bumetanide (Bumex 1 Mg) 1 mg PO BID DIURETIC [facility] Stop: 01/16/18 11:59 Last Admin: 12/18/17 17:39 Dose: 1 mg Cyclobenzaprine HCl (Cyclobenzaprine 10 Mg) 10 mg PO TID [facility] Stop: 01/16/18 14:59 Last Admin: 12/18/17 14:27 Dose: 10 mg Glimepiride (Amaryl 2 Mg) 2 mg PO BREAKFAST [facility] Stop: 01/17/18 07:59 Last Admin: 12/18/17 08:51 Dose: 2 mg Metronidazole (Flagyl 500 Mg Ivpb) 500 mg in 100 mls @ 200 mls/hr IV Q6HT [facility] Stop: 01/16/18 05:59 Last Admin: 12/18/17 17:39 Dose: 200 mls/hr Sodium Chloride (Sodium Chloride 0.9% 1000 Ml) 1,000 mls @ 75 mls/hr IV .[id number] [facility] Stop: 01/16/18 07:29 Last Admin: 12/18/17 15:59 Dose: 75 mls/hr Piperacillin Sod/Tazobactam Sod (Zosyn 3.375gm/100 Ml D5w) 3.375 gm in 100 mls @ 200 mls/hr IV Q6HT [facility] Stop: 01/16/18 11:59 Last Admin: 12/18/17 17:39 Dose: 200 mls/hr Insulin Aspart (Novolog Insulin) 0 unit SQ PRN PRN PRN Reason: HYPERGLYCEMIA Stop: 01/16/18 07:18 Levothyroxine Sodium (Synthroid 100 Mcg) 200 mcg PO QAM [facility] Stop: 01/16/18 09:59 Last Admin: 12/18/17 08:52 Dose: 200 mcg Levothyroxine Sodium (Synthroid 25 Mcg) 25 mcg PO DAILY [facility] Stop: 01/16/18 11:59 Last Admin: 12/18/17 08:53 Dose: 25 mcg Lisinopril (Zestril 5 Mg) 2.5 mg PO DAILY [facility] Stop: 01/16/18 09:59 Last Admin: 12/18/17 08:52 Dose: 2.5 mg Magnesium Hydroxide (Milk Of Magnesia 30 Ml) 30 - 60 ml PO QDP PRN PRN Reason: CONSTIPATION Stop: 01/16/18 07:15 Magnesium Oxide (Mag-Ox 400) 400 mg PO BID [facility] Stop: 01/16/18 11:59 Last Admin: 12/18/17 08:53 Dose: 400 mg Metolazone (Zaroxolyn 2.5 Mg) 2.5 mg PO DAILY [facility] Stop: 01/16/18 11:59 Last Admin: 12/18/17 08:52 Dose: 2.5 mg Morphine Sulfate (Morphine Sulfate 2 Mg Inj) 2 mg IV Q4H PRN PRN PRN Reason: CHEST PAIN Stop: 12/22/17 12:00 Multivitamins (Melissa-Bee With C) 1 tab PO DAILY [facility] Stop: 01/16/18 11:59 Last Admin: 12/18/17 08:51 Dose: 1 tab Nitroglycerin (Nitro-Bid 2% Ud Packets) 1 gm TOP Q8HT [facility] Stop: 01/16/18 07:29 Last Admin: 12/18/17 14:22 Dose: 1 gm Nitroglycerin (Nitrostat 0.4 Mg Tablet) 0.4 mg SL .Q5MIN PRN PRN Reason: CHEST PAIN Stop: 01/16/18 07:17 Ondansetron HCl (Zofran 4 Mg/2 Ml Vial) 4 mg IV Q4H PRN PRN PRN Reason: NAUSEA/VOMITING Stop: 01/16/18 07:20 Pantoprazole Sodium (Protonix 40mg Tablet) 40 mg PO DAILY [facility] Stop: 01/16/18 11:59 Last Admin: 12/18/17 08:52 Dose: 40 mg Potassium Chloride (Klor Con 10 Meq) 10 meq PO BID [facility] Stop: 01/16/18 11:59 Last Admin: 12/18/17 08:52 Dose: 10 meq Senna/Docusate Sodium (Senokot-S Tablet) 2 udtab PO BID PRN PRN PRN Reason: CONSTIPATION Stop: 01/16/18 07:17 Tamsulosin HCl (Flomax 0.4 Mg) 0.4 mg PO HS [facility] Stop: 01/16/18 21:59 Last Admin: 12/17/17 22:42 Dose: 0.4 mg Intake & Output 12/18/17 12/19/17 11:59 11:59 Intake Total 2383 1925 Output Total 1850 800 Balance 533 1125 Weight 84.1 kg Orders 12/17/17 22:00 Tamsulosin HCl 0.4 mg [Flomax 0.4 MG] 0.4 mg PO HS 12/18/17 08:00 Glimepiride 2 mg [Amaryl 2 MG] 2 mg PO BREAKFAST 12/18/17 12:10 Miscellaneous Nursing Order ROUTINE 12/18/17 Dinner [place] Diet 12/19/17 05:00 EKG ONCE 12/20/17 05:00 EKG ROUTINE Microbiology 12/17/17 10:15 Clean Catch Midstream - Preliminary NO GROWTH TO DATE 12/17/17 03:30 Blood Blood Culture - Preliminary NO GROWTH TO DATE 12/17/17 00:45 Blood Blood Culture - Preliminary NO GROWTH TO DATE Code(s): K57.50 - DVRTCLOS OF BOTH SM AND LG INT W/O PERF OR ABSCS W/O BLEED (2) Abdominal pain, acute, right upper quadrant Current Visit: Yes Status: Acute Code(s): R10.11 - RIGHT UPPER QUADRANT PAIN (3) Diabetic neuropathy associated with type 2 diabetes mellitus Current Visit: Yes Status: Chronic Qualifiers: Diabetes mellitus complication detail: with other neurological complication Qualified Code(s): E11.49 - Type 2 diabetes mellitus with other diabetic neurological complication Code(s): E11.40 - TYPE 2 DIABETES MELLITUS WITH DIABETIC NEUROPATHY, UNSP
[2017-12-18] MEDS: Flomax 0.4 MG PO SCH (21:48)
[2017-12-19] MEDS: Zosyn 3.375GM/100 Ml D5W 3.375 GM/100 ML IVPB IV SCH ×5 (00:33→23:30)
[2017-12-19] MEDS: FLAGYL 500 MG IVPB 500 MG/100 ML BAG IV SCH ×3 (05:23→18:10)
[2017-12-19] MEDS: NITRO-BID 2% UD PACKETS TOP SCH ×3 (05:28→21:55)
[2017-12-19] MEDS: Amaryl 2 MG PO SCH (07:32)
[2017-12-19] MEDS: SYNTHROID 100 MCG PO SCH (09:13)
[2017-12-19] MEDS: Klor Con 10 MEQ PO SCH ×2 (09:13→21:53)
[2017-12-19] MEDS: Protonix 40MG Tablet PO SCH (09:13)
[2017-12-19] MEDS: Zaroxolyn 2.5 MG PO SCH (09:13)
[2017-12-19] MEDS: SYNTHROID 25 MCG PO SCH (09:13)
[2017-12-19] MEDS: Zestril 5 MG PO SCH (09:14)
[2017-12-19] MEDS: Cyclobenzaprine 10 MG PO SCH ×3 (09:14→21:53)
[2017-12-19] MEDS: Ecotrin 325 MG PO SCH (09:14)
[2017-12-19] MEDS: ELIQUIS PO SCH ×2 (09:14→21:53)
[2017-12-19] MEDS: MAG-OX 400 PO SCH ×2 (09:14→21:53)
[2017-12-19] MEDS: ZYLOPRIM 300 MG PO SCH (09:14)
[2017-12-19] MEDS: BUMEX 1 MG PO SCH ×2 (09:14→16:59)
[2017-12-19] MEDS: VITA-BEE WITH C PO SCH (09:15)
--- NOTE | 2017-12-19 09:16 | PCM.NOTE ---
Date and Time: 12/19/17912 Subjective Assessment: doing better - Review of Systems Constitutional: No Fever, No Chills Eyes: No Symptoms Ears, Nose, & Throat: No Symptoms Respiratory: No Cough, No Short Of Breath Cardiac: No Chest Pain, No Edema, No Syncope Abdominal/Gastrointestinal: Abdominal Pain, No Nausea, No Vomiting, No Diarrhea Genitourinary Symptoms: No Dysuria Musculoskeletal: No Back Pain, No Neck Pain Skin: No Rash Neurological: No Dizziness, No Focal Weakness, No Sensory Changes Psychological: No Symptoms Endocrine: No Symptoms Hematologic/Lymphatic: No Symptoms Immunological/Allergic: No Symptoms Objective Exam General Appearance: no apparent distress, alert Neurologic Exam: alert, oriented x 3, cooperative, normal mood/affect, nml cerebellar function, sensation nml, No motor deficits Skin Exam: normal color, warm, dry Eye Exam: PERRL, EOMI, eyes nml inspection Ears, Nose, Throat Exam: normal ENT inspection, pharynx normal, moist mucous membranes Neck Exam: normal inspection, non-tender, supple, full range of motion Respiratory Exam: normal breath sounds, lungs clear, No respiratory distress Cardiovascular Exam: regular rate/rhythm, normal heart sounds Gastrointestinal/Abdomen Exam: soft, No tenderness, No mass Extremity Exam: normal inspection, normal range of motion Back Exam: normal inspection, normal range of motion, No CVA tenderness, No vertebral tenderness Pelvic Exam: deferred Rectal Exam: deferred OBJECTIVE DATA Vital Signs: Vital Signs - 24 hr Temp Pulse Resp BP Pulse Ox 12/19/17 07:19 98.7 F 73 16 129/60 94 L 12/19/17 04:00 98.2 F 89 18 141/65 93 L 12/18/17 23:43 98.7 F 70 16 115/51 93 L 12/18/17 19:53 97.9 F 90 17 131/60 96 12/18/17 16:00 98.4 F 74 16 108/53 97 12/18/17 11:32 98.3 F 87 16 115/55 96 Pain Assessment - Last Documented Pain Intensity 5 Pain Scale Used 0-10 Pain Scale Intake and Output: Intake & Output 12/16/17 12/17/17 12/18/17 12/19/17 11:59 11:59 11:59 11:59 Intake Total 0 2383 2645 Output Total 400 1850 1200 Balance -321 513 5392 Weight 81.6 kg 84.1 kg 82.2 kg Lab Results: Accuchecks Date 12/19/17 Date 12/18/17 Date 12/18/17 Date 12/18/17 Time 07:00 Accucheck Value: 90 Accucheck Value: 172 Accucheck Value: 125 Accucheck Value: 123 Radiology Exams: 0001 CT/ABDOMEN AND PELVIS W/0 CONTRAS Indication: Left-sided abdominal pain and nausea. Multiple contiguous axial images obtained through the abdomen and pelvis without contrast as ordered. Comparison: May 21, 2017. Lung bases again demonstrates minimal left base atelectasis/scarring. No infiltrate or effusion. Heart is not enlarged. Stable small hiatal hernia. Noncontrasted stomach and bowel loops appear nonobstructed. Again mild/moderate diffuse scattered colonic fecal debris and diffuse scattered diverticulosis. Query new minimal pericolonic stranding in the proximal descending colon possibly mild/early diverticulitis. Normal appendix. No free fluid/air. Again previous hysterectomy. Stable small left lower pole renal cyst, left adrenal adenoma, and a few calcified splenic granulomas. Remaining liver, gallbladder, pancreas, spleen, right adrenal gland, kidneys, ureters, and bladder appear unremarkable for noncontrast exam. There remains moderate aortoiliac calcifications without AAA. Osseous structures intact again with mild osteopenia and minimal degenerative changes throughout the spine. New remote-appearing L2 inferior endplate fracture with approximately 25% height loss. Impression: 1. Again diffuse colonic diverticulosis. Query mild/early diverticulitis in the descending colon as detailed. 2. Fecal stasis without obstruction. 3. Stable left renal cyst, left adrenal adenoma, and small hiatal hernia. 4. New remote-appearing L2 inferior endplate fracture. Multi-Disciplinary Progress Notes: Multi-Disciplinary Progress Notes 12/18/17 12:10 (created 12/18/17 12:25) Case Management Note by Ginette Hardin DR. ROUNDED AND EVALUATED, DISCUSSED PLAN OF CARE WITH PT. VERBALIZED UNDERSTANDING AND ABLE TO REPEAT INFORMATION BACK. CONTINUES TO DECLINE ADDNL NEEDS FOR DISCHARGE. PLANNING TO RETURN HOME TO PRE EPISODIC LEVEL OF FNX. INDEPENDENT WITH ALL ADL'S. PT IS CURRENTLY SITTING UP AND EATING LUNCH. CL IN REACH. WILL FOLLOW FOR ALL DC NEEDS. Initialized on 12/18/17 12:25 - END OF NOTE Assessment/Plan (1) Diverticul disease small and large intestine, no perforati or abscess Current Visit: Yes Status: Acute Assessment & Plan: doing better Code(s): K57.50 - DVRTCLOS OF BOTH SM AND LG INT W/O PERF OR ABSCS W/O BLEED (2) Abdominal pain, acute, right upper quadrant Current Visit: Yes Status: Resolved Code(s): R10.11 - RIGHT UPPER QUADRANT PAIN (3) Diabetic neuropathy associated with type 2 diabetes mellitus Current Visit: Yes Status: Chronic Qualifiers: Diabetes mellitus complication detail: with other neurological complication Qualified Code(s): E11.49 - Type 2 diabetes mellitus with other diabetic neurological complication Code(s): E11.40 - TYPE 2 DIABETES MELLITUS WITH DIABETIC NEUROPATHY, UNSP (4) Atrial fibrillation Current Visit: Yes Status: Chronic Code(s): I48.91 - UNSPECIFIED ATRIAL FIBRILLATION
[2017-12-19 11:17] LABS: BASOPHIL % 0.1 % (0.0-0.4); Basophil (Absolute #) 0.01 (0-0.4); Eosinophil % 3.9 % (0.00-5.0); Eosinophil (Absolute #) 0.39 (0-0.5); Granulocyte Absolute (ANC) 6.56 (1.4-6.9); Granulocytes % 64.8 % (36.0-66.0); Hematocrit 34.2 % (35-47); Hemoglobin 11.1 gm/dl (12.0-16.0); Lymphocyte (Absolute #) 2.28 (1.0-4.6); Lymphocytes % 22.6 % (24.0-44.0); Mean Cell Volume 87.7 fl (78-100); Mean Corpuscular Hgb Concent. 32.5 g/dl (32-36); Mean Platelet Volume 9.3 fl (6-9.5); Monocyte (Absolute #) 0.87 (0.0-1.3); Monocytes % 8.6 % (0.0-12.0); Platelet Count 217 K/mm3 (150-450); Red Cell Distribution Width 15.8 % (11.5-14.0); White Blood Count 10.1 K/mm3 (4.0-10.5)
[2017-12-19 11:23] LABS: ANION GAP 9.2 MEQ/L (5-15); BILIRUBIN,TOTAL 0.4 mg/dL (0.2-1.0); Calcium 9.5 mg/dL (8.5-10.1); Carbon Dioxide 33.1 mEq/L (21-32); Creatinine 1 1.3 mg/dl (0.55-1.30); Potassium 3.5 mEq/L (3.5-5.1); Total Protein 6.9 gm/dL (6.4-8.2)
[2017-12-19 11:33] LABS: Mean Corpuscular Hemoglobin 28.4 pg (26-32)
[2017-12-19] MEDS: Sodium Chloride 0.9% 1000 ML 1,000 ML IV SCH (11:41)
[2017-12-19] MEDS: TYLENOL 325 MG PO PRN (21:53)
[2017-12-19] MEDS: Flomax 0.4 MG PO SCH (21:53)
[2017-12-20] MEDS: FLAGYL 500 MG IVPB 500 MG/100 ML BAG IV SCH ×2 (00:11→06:45)
[2017-12-20] MEDS: Sodium Chloride 0.9% 1000 ML 1,000 ML IV SCH (04:29)
[2017-12-20] MEDS: Zosyn 3.375GM/100 Ml D5W 3.375 GM/100 ML IVPB IV SCH (05:36)
[2017-12-20] MEDS: NITRO-BID 2% UD PACKETS TOP SCH (05:38)
[2017-12-20 07:03] VITALS: O2SAT 96
[2017-12-20] MEDS: SYNTHROID 100 MCG PO SCH (09:30)
[2017-12-20] MEDS: Klor Con 10 MEQ PO SCH (09:31)
[2017-12-20] MEDS: Protonix 40MG Tablet PO SCH (09:31)
[2017-12-20] MEDS: Zaroxolyn 2.5 MG PO SCH (09:31)
[2017-12-20] MEDS: Ecotrin 325 MG PO SCH (09:31)
[2017-12-20] MEDS: Zestril 5 MG PO SCH (09:31)
[2017-12-20] MEDS: Cyclobenzaprine 10 MG PO SCH (09:32)
[2017-12-20] MEDS: ZYLOPRIM 300 MG PO SCH (09:32)
[2017-12-20] MEDS: MAG-OX 400 PO SCH (09:32)
[2017-12-20] MEDS: ELIQUIS PO SCH (09:32)
[2017-12-20] MEDS: BUMEX 1 MG PO SCH (09:32)
[2017-12-20] MEDS: Amaryl 2 MG PO SCH (09:33)
[2017-12-20] MEDS: VITA-BEE WITH C PO SCH (09:33)
[2017-12-20] MEDS: SYNTHROID 25 MCG PO SCH (09:34)
[2017-12-20 11:25] VITALS: BP 125/78; PULSE 79
--- NOTE | 2017-12-20 11:44 | PCM.NOTE ---
Date and Time: 12/20/17 1141 Subjective Assessment: doing better, tolerating diet well, no abdominal pain - Review of Systems Constitutional: No Fever, No Chills Eyes: No Symptoms Ears, Nose, & Throat: No Symptoms Respiratory: No Cough, No Short Of Breath Cardiac: No Chest Pain, No Edema, No Syncope Abdominal/Gastrointestinal: No Abdominal Pain, No Nausea, No Vomiting, No Diarrhea Genitourinary Symptoms: No Dysuria Musculoskeletal: No Back Pain, No Neck Pain Skin: No Rash Neurological: No Dizziness, No Focal Weakness, No Sensory Changes Psychological: No Symptoms Endocrine: No Symptoms Hematologic/Lymphatic: No Symptoms Immunological/Allergic: No Symptoms Objective Exam General Appearance: no apparent distress, alert Neurologic Exam: alert, oriented x 3, cooperative, normal mood/affect, nml cerebellar function, sensation nml, No motor deficits Skin Exam: normal color, warm, dry Eye Exam: PERRL, EOMI, eyes nml inspection Ears, Nose, Throat Exam: normal ENT inspection, pharynx normal, moist mucous membranes Neck Exam: normal inspection, non-tender, supple, full range of motion Respiratory Exam: normal breath sounds, lungs clear, No respiratory distress Cardiovascular Exam: regular rate/rhythm, normal heart sounds Gastrointestinal/Abdomen Exam: soft, No tenderness, No mass Extremity Exam: normal inspection, normal range of motion Back Exam: normal inspection, normal range of motion, No CVA tenderness, No vertebral tenderness Pelvic Exam: deferred Rectal Exam: deferred OBJECTIVE DATA Vital Signs: Vital Signs - 24 hr Temp Pulse Resp BP Pulse Ox 12/20/17 11:00 98.7 F 79 20 125/78 96 12/20/17 07:00 98.3 F 71 18 123/73 96 12/20/17 03:00 98.1 F 77 20 116/53 95 12/19/17 23:00 97.8 F 81 19 167/72 95 12/19/17 19:00 97.9 F 83 18 120/59 98 12/19/17 15:00 97.8 F 80 18 117/55 96 Pain Assessment - Last Documented Pain Intensity 5 Pain Scale Used 0-10 Pain Scale Intake and Output: Intake & Output 12/17/17 12/18/17 12/19/17 12/20/17 11:59 11:59 11:59 11:59 Intake Total 0 2383 2645 3630 Output Total 400 1850 1200 1750 Balance -041 958 4814 1880 Weight 81.6 kg 84.1 kg 82.2 kg 83 kg Lab Results: Accuchecks Date 12/20/17 Date 12/20/17 Date 12/19/17 Date 12/19/17 Time 11:30 Time 07:30 Time 16:00 Accucheck Value: 173 Accucheck Value: 129 Accucheck Value: 128 Accucheck Value: 127 Multi-Disciplinary Progress Notes: Multi-Disciplinary Progress Notes 12/20/17 08:28 Case Management Note by Amanda Dyer DISCHARGE PLAN REVIEWED. PLAN TO CONTINUE CURRENT TREATMENT AND RETURN HOME TO PRE EPISODIC LEVEL OF CARE. DENIES NEED FOR ANY DME/SERVICES ON DISCHARGE. WILL CONTINUE TO MONITOR FOR ALL D/C NEEDS. Initialized on 12/20/17 08:28 - END OF NOTE Assessment/Plan (1) Diverticul disease small and large intestine, no perforati or abscess Current Visit: Yes Status: Acute Assessment & Plan: patient is feeling much better Patient is tolerating diet better. Plan to discharge her home today. Code(s): K57.50 - DVRTCLOS OF BOTH SM AND LG INT W/O PERF OR ABSCS W/O BLEED (2) Abdominal pain, acute, right upper quadrant Current Visit: Yes Status: Resolved Code(s): R10.11 - RIGHT UPPER QUADRANT PAIN (3) Diabetic neuropathy associated with type 2 diabetes mellitus Current Visit: Yes Status: Chronic Qualifiers: Diabetes mellitus complication detail: with other neurological complication Qualified Code(s): E11.49 - Type 2 diabetes mellitus with other diabetic neurological complication Code(s): E11.40 - TYPE 2 DIABETES MELLITUS WITH DIABETIC NEUROPATHY, UNSP (4) Atrial fibrillation Current Visit: Yes Status: Chronic Code(s): I48.91 - UNSPECIFIED ATRIAL FIBRILLATION
--- NOTE | 2017-12-20 12:06 | PCM.DS ---
Discharge Summary Date of Admission: 12/17/17 04:21 Admitting Physician: TRINH MINAYA Primary Care Provider: TRINH MINAYA Allergies Allergies ofloxacin [From Floxin] Allergy (Verified 03/11/16 01:02) Sulfa (Sulfonamide Antibiotics) [Sulfa(Sulfonamide Antibiotics)] Allergy ( Verified 03/11/16 01:02) Hospital Summary - Hospital Course Hospital Course: 77-year-old female with significant past medical history of type 2 diabetes mellitus, atrial fibrillation, hypertensive heart disease and congestive heart failure, diabetic neuropathy and history of recurrent diverticulitis came to the emergency room with complaining of left lower quadrant abdominal pain. Initial workup in the emergency room was suggestive of active diverticulitis. Patient was admitted. IV fluid was started. IV Flagyl started. Home medicines were continued. Accu-Cheks were followed with sliding scale. 4. Our patients remain on asymptomatic and was able to tolerate diet better so patient is being discharged home with Flagyl 250 mg 3 times a day for 7 days. Patient is advised to eat high fiber diet. Patient is advised to continue all other home medication. Patient is advised to follow-up in my office in one week. - Vitals & Intake/Output Vital Signs: Vital Signs Temperature 98.7 F 12/20/17 11:00 Pulse Rate 79 12/20/17 11:00 Respiratory Rate 20 12/20/17 11:00 Blood Pressure 125/78 12/20/17 11:00 O2 Sat by Pulse Oximetry 96 12/20/17 11:00 Intake & Output: Intake & Output 12/18/17 12/19/17 12/20/17 12/21/17 11:59 11:59 11:59 11:59 Intake Total 2383 2645 3630 Output Total 1850 1200 1750 Balance 533 1445 1880 Weight 84.1 kg 82.2 kg 83 kg - Lab Result Diagrams: 12/19/17 10:55 12/19/17 10:55 Lab Results-Last 24 Hrs: Accuchecks Date 12/20/17 Date 12/20/17 Date 12/19/17 Date 12/19/17 Time 11:30 Time 07:30 Time 16:00 Accucheck Value: 173 Accucheck Value: 129 Accucheck Value: 128 Accucheck Value: 127 Micro Results-Entire Visit: Microbiology 12/17/17 10:15 - Final Clean Catch Midstream <10K NORMAL SKIN DILSHAD PROBABLE SKIN CONTAMINANT Accuchecks Date 12/20/17 Date 12/20/17 Date 12/19/17 Date 12/19/17 Time 11:30 Time 07:30 Time 16:00 Accucheck Value: 173 Accucheck Value: 129 Accucheck Value: 128 Accucheck Value: 127 - Procedures and Test Procedures and Tests throughout Hospitalization: Therapy Orders & Screens 12/17/17 11:08 EKG ONCE Comment: Diagnosis: COLITIS 12/18/17 05:00 EKG ONCE Comment: Diagnosis: COLITIS 12/19/17 05:00 EKG ONCE Comment: Diagnosis: COLITIS 12/20/17 05:00 EKG ROUTINE Comment: Diagnosis: COLITIS Discharge Exam General Appearance: no apparent distress, alert Neurologic Exam: alert, oriented x 3, cooperative, normal mood/affect, nml cerebellar function, sensation nml, No motor deficits Skin Exam: normal color, warm, dry Eye Exam: PERRL, EOMI, eyes nml inspection Ears, Nose, Throat Exam: normal ENT inspection, pharynx normal, moist mucous membranes Neck Exam: normal inspection, non-tender, supple, full range of motion Respiratory Exam: normal breath sounds, lungs clear, No respiratory distress Cardiovascular Exam: regular rate/rhythm, normal heart sounds Gastrointestinal/Abdomen Exam: soft, No tenderness, No mass Extremity Exam: normal inspection, normal range of motion Back Exam: normal inspection, normal range of motion, No CVA tenderness, No vertebral tenderness Pelvic Exam: deferred Rectal Exam: deferred Final Diagnosis/Problem List - Final Discharge Diagnosis/Problem (1) Diverticul disease small and large intestine, no perforati or abscess Current Visit: Yes Status: Resolved (2) Abdominal pain, acute, right upper quadrant Current Visit: Yes Status: Resolved (3) Diabetic neuropathy associated with type 2 diabetes mellitus Current Visit: Yes Status: Chronic (4) Atrial fibrillation Current Visit: Yes Status: Chronic - Discharge Discharge Date: 12/20/17 Disposition: Home, Self-Care Condition: Stable Prescriptions: New Metronidazole [Flagyl] 250 mg PO TID #20 tablet Continue Magnesium Oxide 400 mg [Mag-Ox 400] 400 mg PO BID Potassium Chloride [Klor-Con 10] 10 meq PO BID Bumetanide 1 mg [Bumex 1 mg] 1 mg PO BID Allopurinol 300 mg [Zyloprim 300 mg] 300 mg PO DAILY PANTOPRAZOLE 40 mg Tablet [Protonix 40MG Tablet] 40 mg PO DAILY Apixaban [Eliquis] 2.5 mg PO BID Metolazone 2.5 mg [Zaroxolyn 2.5 MG] 2.5 mg PO DAILY Levothyroxine Sodium [Synthroid] 25 mcg PO DAILY Levothyroxine Sodium [Synthroid] 200 mcg PO DAILY Nitroglycerin 0.4 mg Tablet [Nitrostat 0.4 MG Tablet] 0.4 mg SL Q5MIN PRN MR X 3 PRN PRN Reason: Chest Pain Lisinopril 5 mg [Zestril 5 MG] 2.5 mg PO DAILY Glyburide 5 mg [Micronase 5 MG] 2.5 mg PO HS Vitamin B Complex [Super B-50 Complex] 1 each PO DAILY Tamsulosin HCl 0.4 mg PO HS Cyclobenzaprine HCl 10 mg [Cyclobenzaprine 10 MG] 10 mg PO TID Follow up with: TRINH MINAYA MD [Primary Care Provider] - Forms: Patient Portal Information
== END 2017-12-20 14:40 | disposition home or self-care (01) | DRG 392 ==
LOC: ED 00:17 → MED SURG 04:21
PROVIDERS: ADMIT General Practice; ATTEND General Practice
DX: K57.50 Diverticulosis of both small and large intestine without perforation or abscess without bleeding (principal); K52.9 Noninfective gastroenteritis and colitis, unspecified; R10.11 Right upper quadrant pain; E11.49 Type 2 diabetes mellitus with other diabetic neurological complication; E11.40 Type 2 diabetes mellitus with diabetic neuropathy, unspecified; E11.9 Type 2 diabetes mellitus without complications; I48.91 Unspecified atrial fibrillation; M19.90 Unspecified osteoarthritis, unspecified site; R07.89 Other chest pain; I50.9 Heart failure, unspecified; J44.9 Chronic obstructive pulmonary disease, unspecified; I10 Essential (primary) hypertension; E03.9 Hypothyroidism, unspecified; Z79.899 Other long term (current) drug therapy; Z85.828 Personal history of other malignant neoplasm of skin; I25.2 Old myocardial infarction; Z86.711 Personal history of pulmonary embolism
CPT/HCPCS: 36000; 36415; 71045; 74176; 80053; 80061; 81000; 82150; 82962; 83036; 83690; 83721; 83880; 84484; 85025; 87040; 87086; 93005; 93041; 96360; 96361; 99285; J2405; J2543; A9270-GY

== ENCOUNTER 2018-04-24 10:29 | Inpatient (IN) | payer MEDICARE ==
[2018-04-24] MEDS ORDERED: MORPHINE SULFATE 2 MG INJ IV ONE (11:01)
[2018-04-24] MEDS ORDERED: Zofran 4 MG/2 ML VIAL IV ONE (11:01)
[2018-04-24] MEDS ORDERED: Sodium Chloride 0.9% 1000 ML 1,000 ML ONE (11:17)
[2018-04-24] MEDS ORDERED: MORPHINE SULFATE 2 MG INJ ONE (11:17)
[2018-04-24] MEDS ORDERED: Zofran 4 MG/2 ML VIAL ONE (11:17)
[2018-04-24 11:19] LABS: BASOPHIL % 0.2 % (0.0-0.4); Basophil (Absolute #) 0.03 (0-0.4); Eosinophil % 0.2 % (0.00-5.0); Eosinophil (Absolute #) 0.03 (0-0.5); Granulocyte Absolute (ANC) 10.63 (1.4-6.9); Granulocytes % 82.2 % (36.0-66.0); Hematocrit 36.9 % (35-47); Hemoglobin 12.5 gm/dl (12.0-16.0); Lymphocyte (Absolute #) 1.46 (1.0-4.6); Lymphocytes % 11.3 % (24.0-44.0); Mean Cell Volume 89.3 fl (78-100); Mean Corpuscular Hemoglobin 30.3 pg (26-32); Mean Corpuscular Hgb Concent. 33.9 g/dl (32-36); Mean Platelet Volume 9.3 fl (6-9.5); Monocyte (Absolute #) 0.79 (0.0-1.3); Monocytes % 6.1 % (0.0-12.0); Platelet Count 283 K/mm3 (150-450); Red Blood Count 4.13 M/mm3 (4.1-5.4); White Blood Count 12.9 K/mm3 (4.0-10.5)
[2018-04-24 11:30] LABS: INR 1.85 (0.8-3.0)
[2018-04-24] MEDS: Sodium Chloride 0.9% 1000 ML 1,000 ML IV SCH ×2 (11:31→20:33)
--- NOTE | 2018-04-24 11:31 | ERPHSYRPT ---
- History of Present Illness Time Seen by Provider: 04/24/18 10:55 Historian: patient Exam Limitations: no limitations Patient Subjective Stated Complaint: states left lower quad abd pain since last thursday. started on flagyl but is not getting any better. Triage Nursing Assessment: to room per w/c. skin w/d, color normal, resp easy. patient tearful at times. abd distended but soft. tender left lower quad. normal bowel sounds throughout. afebrile at this time. Physician History: Pt has been c/o left lower abdominal pain for about one week, nausea. She was started on PO Flagyl by her doctor 5 days ago, but she became worse since yesterday, c/o more pain, denies fever, chills, vomiting, urinary complaints or diarrhea. Timing/Duration: day(s) (7) Activities at Onset: none Quality: cramping, sharpness Abdominal Pain Onset Location: LLQ Pain Radiation: no radiation Severity of Pain-Max: moderate Severity of Pain-Current: moderate Modifying Factors: Improves With: nothing Associated Symptoms: denies symptoms Previous symptoms: no prior history Allergies/Adverse Reactions: ofloxacin [From Floxin] Allergy (Verified 04/24/18 10:45) Sulfa (Sulfonamide Antibiotics) [Sulfa(Sulfonamide Antibiotics)] Allergy ( Verified 04/24/18 10:45) Home Medications: Allopurinol 300 mg [Zyloprim 300 mg] 300 mg PO DAILY 11/30/16 [History] Apixaban [Eliquis] 2.5 mg PO BID 11/30/16 [History] Bumetanide 1 mg [Bumex 1 mg] 1 mg PO BID 11/30/16 [History] Levothyroxine Sodium [Synthroid] 25 mcg PO DAILY 11/30/16 [History] Levothyroxine Sodium [Synthroid] 200 mcg PO DAILY 11/30/16 [History] Magnesium Oxide 400 mg [Mag-Ox 400] 400 mg PO BID 11/30/16 [History] Metolazone 2.5 mg [Zaroxolyn 2.5 MG] 2.5 mg PO DAILY 11/30/16 [History] PANTOPRAZOLE 40 mg Tablet [Protonix 40MG Tablet] 40 mg PO DAILY 11/30/16 [ History] Potassium Chloride [Klor-Con 10] 10 meq PO BID 11/30/16 [History] Lisinopril 5 mg [Zestril 5 MG] 2.5 mg PO DAILY 05/21/17 [History] Nitroglycerin 0.4 mg Tablet [Nitrostat 0.4 MG Tablet] 0.4 mg SL Q5MIN PRN MR X 3 PRN 05/21/17 [History] Vitamin B Complex [Super B-50 Complex] 1 each PO DAILY 05/21/17 [History] Cyclobenzaprine HCl 10 mg [Cyclobenzaprine 10 MG] 10 mg PO TID 12/17/17 [ History] Tamsulosin HCl 0.4 mg PO HS 12/17/17 [History] Metformin HCl [Metformin HCl] 500 mg PO BID 04/24/18 [History] Hx Tetanus, Diphtheria Vaccination/Date Given: Yes Hx Influenza Vaccination/Date Given: Yes Hx Pneumococcal Vaccination/Date Given: Yes - Review of Systems Constitutional: No Symptoms Abdominal/Gastrointestinal: Abdominal Pain, Nausea All Other Systems: Reviewed and Negative - Past Medical History Pertinent Past Medical History: Yes Neurological History: Peripheral Neuropathy ENT History: No Pertinent History Cardiac History: Congestive Heart Failure, Hypertension, Myocardial Infarction ( [place]) Respiratory History: CHF, COPD, Emphysema, Pulmonary Embolism Endocrine Medical History: Diabetes Type II, Hypothyroidism Musculoskeletal History: Arthritis, Degenerative Disk Disease, Osteoarthritis, Rheumatoid Arthritis GI Medical History: Diverticulosis, Hemorrhoids, Hernia History: Dialysis, Renal Disease Psycho-Social History: No Pertinent History Female Reproductive Disorders: No Pertinent History Other Medical History: 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 , 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 - Past Surgical History Past Surgical History: Yes Neuro Surgical History: No Pertinent History Cardiac: Cardiac Catheterization Respiratory: No Pertinent History Gastrointestinal: No Pertinent History Genitourinary: No Pertinent History Musculoskeletal: No Pertinent History Female Surgical History: Hysterectomy, Lumpectomy Other Surgical History: breast tumor removed, tumor removed from back benign, 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 - Social History Smoking Status: Never smoker Exposure to second hand smoke: Yes Drug Use: none Patient Lives Alone: No - Nursing Vital Signs Nursing Vital Signs: Initial Vital Signs Temperature 98.3 F 04/24/18 10:34 Pulse Rate 112 H 04/24/18 10:34 Respiratory Rate 18 04/24/18 10:34 Blood Pressure 158/74 04/24/18 10:34 O2 Sat by Pulse Oximetry 95 04/24/18 10:34 Pain Scale Pain Intensity 4 - Physical Exam General Appearance: no apparent distress Eye Exam: eyes nml inspection Ears, Nose, Throat Exam: normal ENT inspection Neck Exam: normal inspection, non-tender Respiratory Exam: normal breath sounds, lungs clear, airway intact Cardiovascular Exam: regular rate/rhythm, normal heart sounds, normal peripheral pulses, No murmur Gastrointestinal/Abdomen Exam: soft, normal bowel sounds, tenderness (LLQ, mod. severe), No distention, No guarding, No pulsatile mass, No rebound Back Exam: normal inspection, No CVA tenderness Extremity Exam: normal inspection Neurologic Exam: alert, oriented x 3, normal mood/affect Skin Exam: normal color, warm, dry, No rash Lymphatic Exam: No adenopathy SpO2 Interpretation: normal SpO2: 95 Oxygen Delivery: Room Air - Course Nursing assessment & vital signs reviewed: Yes - CT Exams Abdomen/Pelvis CT Interpretation: Other (acute diverticulitis, constipation, no free air.) Ordered Tests: Active Orders 24 hr Category Date Time Status IV Insertion STAT Care 04/24/18 11:01 Active NPO (ED) STAT Care 04/24/18 11:01 Active ABDOMEN AND PELVIS W/0 CONTRAS [CT] Stat Exams 04/24/18 11:01 Taken CBC W DIFF Stat Lab 04/24/18 11:10 Completed CMP Stat Lab 04/24/18 11:10 Completed LIPASE Stat Lab 04/24/18 11:10 Completed Lactic Acid Stat Lab 04/24/18 11:10 Completed PROTIME WITH INR Stat Lab 04/24/18 11:10 Completed UA W/ MICROSCOPIC Stat Lab 04/24/18 12:50 Completed Medication Summary Generic Name Dose Route Start Last Admin Trade Name Freq PRN Reason Stop Dose Admin Sodium Chloride 1,000 mls @ 100 mls/hr 04/24/18 11:15 04/24/18 11:31 Sodium Chloride 0.9% 1000 Ml IV 05/24/18 11:14 100 mls/hr .Q10H NKECHI Administration Levofloxacin/Dextrose 750 mg in 150 mls @ 100 mls/hr 04/24/18 13:01 Levofloxacin 750mg/150ml D5w IV 04/24/18 14:30 STAT STA Discontinued Medications Generic Name Dose Route Start Last Admin Trade Name Ximena PRN Reason Stop Dose Admin Metronidazole 500 mg in 100 mls @ 200 mls/hr 04/24/18 13:01 04/24/18 13:16 Flagyl 500 Mg Ivpb IV 04/24/18 13:30 200 mls/hr STAT STA 200 mls/hr Administration Metronidazole Confirm 04/24/18 13:07 Flagyl 500 Mg Ivpb Administered 04/24/18 13:08 Dose 500 mg in 100 mls @ ud IV .STK-MED ONE Morphine Sulfate 2 mg 04/24/18 11:01 04/24/18 11:27 Morphine Sulfate 2 Mg Inj IV 04/24/18 11:02 2 mg STAT ONE Administration Morphine Sulfate Confirm 04/24/18 11:17 Morphine Sulfate 2 Mg Inj Administered 04/24/18 11:18 Dose 2 mg .ROUTE .STK-MED ONE Ondansetron HCl 4 mg 04/24/18 11:01 04/24/18 11:25 Zofran 4 Mg/2 Ml Vial IV 04/24/18 11:02 4 mg STAT ONE Administration Ondansetron HCl Confirm 04/24/18 11:17 Zofran 4 Mg/2 Ml Vial Administered 04/24/18 11:18 Dose 4 mg .ROUTE .STK-MED ONE Lab/Rad Data: Laboratory Result [facility] 04/24/18 11:10 04/24/18 11:10 Laboratory Results 04/24/18 04/24/18 04/24/18 Range/Units 12:50 11:10 11:10 WBC (4.0-10.5) K/mm3 RBC (4.1-5.4) M/mm3 Hgb (12.0-16.0) gm/dl Hct (35-47) % MCV (78-100) fl MCH (26-32) pg MCHC (32-36) g/dl RDW (11.5-14.0) % Plt Count (150-450) K/mm3 MPV (6-9.5) fl Gran % (36.0-66.0) % Eos # (Auto) (0-0.5) Absolute Lymphs (auto) (1.0-4.6) Absolute Monos (auto) (0.0-1.3) Lymphocytes % (24.0-44.0) % Monocytes % (0.0-12.0) % Eosinophils % (0.00-5.0) % Basophils % (0.0-0.4) % Absolute Granulocytes (1.4-6.9) Basophils # (0-0.4) PT 21.7 H (9.95-12.35) SECONDS INR 1.85 (0.8-3.0) Sodium 135 L (137-145) mmol/L Potassium 4.1 (3.5-5.1) mmol/L Chloride 91 L (98-107) mmol/L Carbon Dioxide 30 (22-30) mmol/L Anion Gap 16.9 H (5-15) MEQ/L BUN 59 H (7-17) mg/dL Creatinine 2.68 H (0.52-1.04) mg/dL Estimated GFR 18.3 ML/MIN Glucose 195 H (74-106) mg/dL Lactic Acid (0.4-2.0) Calcium 10.1 (8.4-10.2) mg/dL Total Bilirubin 0.50 (0.2-1.3) mg/dL AST 19 (14-36) U/L ALT 12 (0-35) U/L Alkaline Phosphatase 77 (38-126) U/L Serum Total Protein 7.5 (6.3-8.2) g/dL Albumin 4.1 (3.5-5.0) g/dL Lipase 53 (23-300) U/L Ur Collection Type CATH Urine Color YELLOW (YELLOW) Urine Appearance HAZY (CLEAR) Urine pH 5.0 (5-6) Ur Specific [place] 1.010 (1.005-1.025) Urine Protein NEGATIVE (Negative) Urine Ketones TRACE (NEGATIVE) Urine Blood NEGATIVE (0-5) Quentin/ul Urine Nitrite NEGATIVE (NEGATIVE) Urine Bilirubin NEGATIVE (NEGATIVE) Urine Urobilinogen NORMAL (0-1) mg/dL Ur Leukocyte Esterase TRACE (NEGATIVE) Urine Microscopic WBC 0-2 (0-5) /HPF Ur Epithelial Cells RARE (FEW) /HPF Urine Bacteria RARE (NEGATIVE) /HPF Hyaline Casts 2-5 (0-2) /LPF Urine Culture Reflexed NO (NO) Urine Glucose NEGATIVE (NEGATIVE) mg/dL Specimen Received 6/16/18 1250 04/24/18 04/24/18 Range/Units 11:10 11:10 WBC 12.9 H (4.0-10.5) K/mm3 RBC 4.13 (4.1-5.4) M/mm3 Hgb 12.5 (12.0-16.0) gm/dl Hct 36.9 (35-47) % MCV 89.3 (78-100) fl MCH 30.3 (26-32) pg MCHC 33.9 (32-36) g/dl RDW 15.0 H (11.5-14.0) % Plt Count 283 (150-450) K/mm3 MPV 9.3 (6-9.5) fl Gran % 82.2 H (36.0-66.0) % Eos # (Auto) 0.03 (0-0.5) Absolute Lymphs (auto) 1.46 (1.0-4.6) Absolute Monos (auto) 0.79 (0.0-1.3) Lymphocytes % 11.3 L (24.0-44.0) % Monocytes % 6.1 (0.0-12.0) % Eosinophils % 0.2 (0.00-5.0) % Basophils % 0.2 (0.0-0.4) % Absolute Granulocytes 10.63 H (1.4-6.9) Basophils # 0.03 (0-0.4) PT (9.95-12.35) SECONDS INR (0.8-3.0) Sodium (137-145) mmol/L Potassium (3.5-5.1) mmol/L Chloride (98-107) mmol/L Carbon Dioxide (22-30) mmol/L Anion Gap (5-15) MEQ/L BUN (7-17) mg/dL Creatinine (0.52-1.04) mg/dL Estimated GFR ML/MIN Glucose (74-106) mg/dL Lactic Acid 1.8 (0.4-2.0) Calcium (8.4-10.2) mg/dL Total Bilirubin (0.2-1.3) mg/dL AST (14-36) U/L ALT (0-35) U/L Alkaline Phosphatase (38-126) U/L Serum Total Protein (6.3-8.2) g/dL Albumin (3.5-5.0) g/dL Lipase (23-300) U/L Ur Collection Type Urine Color (YELLOW) Urine Appearance (CLEAR) Urine pH (5-6) Ur Specific [place] (1.005-1.025) Urine Protein (Negative) Urine Ketones (NEGATIVE) Urine Blood (0-5) Quentin/ul Urine Nitrite (NEGATIVE) Urine Bilirubin (NEGATIVE) Urine Urobilinogen (0-1) mg/dL Ur Leukocyte Esterase (NEGATIVE) Urine Microscopic WBC (0-5) /HPF Ur Epithelial Cells (FEW) /HPF Urine Bacteria (NEGATIVE) /HPF Hyaline Casts (0-2) /LPF Urine Culture Reflexed (NO) Urine Glucose (NEGATIVE) mg/dL Specimen Received - Progress Progress: improved Progress Note: 04/24/18 13:[address] Lauren Wylie, discussed out results, and this patient's current condition with her, she agreed to admit her to medical floor, patient was informed, agreed. Discussed with : Mahnaz Chaidez Will see patient in: hospital (full admit) Counseled pt/family regarding: lab results, diagnosis, need for follow-up, rad results - Departure Time of Disposition: 13:40 Departure Disposition: In-patient Admission Clinical Impression: Diverticulitis Condition: Stable Critical Care Time: No Referrals: TRINH MINAYA MD [Primary Care Provider] -
[2018-04-24 11:35] LABS: ALBUMIN 4.1 g/dL (3.5-5.0); ANION GAP 16.9 MEQ/L (5-15); BILIRUBIN,TOTAL 0.5 mg/dL (0.2-1.3); Calcium 10.1 mg/dL (8.4-10.2); Creatinine 1 2.68 mg/dL (0.52-1.04); Potassium 4.1 mmol/L (3.5-5.1); Total Protein 7.5 g/dL (6.3-8.2)
[2018-04-24 13:00] LABS: Appearance HAZY (CLEAR); Bilirubin NEGATIVE (NEGATIVE); Blood NEGATIVE Ery/ul (0-5); Glucose NEGATIVE (NEGATIVE); Nitrite NEGATIVE (NEGATIVE); Protein,Urine Dip NEGATIVE (Negative); Urobilinogen NORMAL mg/dL (0-1)
[2018-04-24 13:01] LABS: Ketones TRACE (NEGATIVE)
[2018-04-24] MEDS ORDERED: FLAGYL 500 MG IVPB 500 MG/100 ML BAG IV STA (13:01)
[2018-04-24] MEDS ORDERED: LEVOFLOXACIN 750MG/150ML D5W 750 MG/150 ML BAG IV STA (13:01)
[2018-04-24 13:02] LABS: Leukocyte Esterase TRACE (NEGATIVE)
[2018-04-24 13:03] LABS: Bacteria RARE /HPF (NEGATIVE); Epithelial Cells RARE /HPF (FEW); WBC 0-2 /HPF (0-5)
[2018-04-24] MEDS ORDERED: FLAGYL 500 MG IVPB 500 MG/100 ML BAG IV ONE (13:07)
[2018-04-24] MEDS ORDERED: Zofran 4 MG/2 ML VIAL IV PRN (13:41)
[2018-04-24] MEDS ORDERED: DUONEB 0.5-3 MG/3 ml Neb IH PRN (13:41)
[2018-04-24] MEDS ORDERED: Sodium Chloride 0.9% 1000 ML 1,000 ML IV SCH (13:45)
[2018-04-24] MEDS ORDERED: LEVOFLOXACIN 750MG/150ML D5W 750 MG/150 ML BAG IV ONE (13:45)
[2018-04-24] MEDS: MORPHINE SULFATE 2 MG INJ IV PRN (15:46)
[2018-04-24] MEDS ORDERED: Nitrostat 0.4 MG Tablet SL PRN (16:20)
[2018-04-24] MEDS: BUMEX 1 MG PO SCH (16:56)
--- NOTE | 2018-04-24 20:19 | XRAY ---
Indication: Left-sided abdominal pain. Multiple contiguous axial images obtained through the abdomen and pelvis without contrast as ordered. Comparison: December 17, 2017. Lung bases clear. Heart is not enlarged. Stable small hiatal hernia. Noncontrasted stomach and bowel loops appear nonobstructed. There remains mild/moderate diffuse scattered colonic fecal debris diffuse. Also again scattered colonic diverticulosis with new mild/moderate descending/proximal sigmoid diverticulitis. Query new minimal pericolonic stranding in the proximal descending colon possibly mild/early diverticulitis. Tiny free fluid but no walled off fluid collection or free air. Stable small left lower pole renal cyst, left adrenal adenoma, hysterectomy, and a few calcified splenic granulomas. Remaining liver, gallbladder, pancreas, spleen, right adrenal gland, kidneys, ureters, and bladder appear unremarkable for noncontrast exam. There remains moderate aortoiliac calcifications without AAA. Osseous structures intact again with mild osteopenia, minimal degenerative changes throughout the spine, and remote-appearing L2 inferior endplate fracture. Impression: 1. Again diffuse colonic diverticulosis with descending and sigmoid diverticulitis. 2. Stable fecal stasis without obstruction, left renal cyst, left adrenal adenoma, and small hiatal hernia. Comment: Preliminary interpretation was made by [facility]. No discrepancy. CT DI 22.49
[2018-04-24] MEDS: Flomax 0.4 MG PO SCH (21:22)
[2018-04-24] MEDS: FLAGYL 500 MG IVPB 500 MG/100 ML BAG IV SCH (21:22)
[2018-04-24] MEDS: ELIQUIS 2.5 MG TABLET PO SCH (21:22)
[2018-04-24] MEDS: MAG-OX 400 PO SCH (21:22)
[2018-04-24] MEDS: Klor Con 10 MEQ PO SCH (21:22)
[2018-04-24] MEDS: Cyclobenzaprine 10 MG PO SCH (21:23)
[2018-04-25] MEDS: MORPHINE SULFATE 2 MG INJ IV PRN ×3 (03:09→22:43)
[2018-04-25] MEDS: FLAGYL 500 MG IVPB 500 MG/100 ML BAG IV SCH ×3 (05:30→21:34)
[2018-04-25 06:07] LABS: BASOPHIL % 0.2 % (0.0-0.4); Basophil (Absolute #) 0.02 (0-0.4); Eosinophil % 0.4 % (0.00-5.0); Eosinophil (Absolute #) 0.04 (0-0.5); Granulocyte Absolute (ANC) 8.34 (1.4-6.9); Granulocytes % 75.9 % (36.0-66.0); Hematocrit 33.5 % (35-47); Hemoglobin 11.1 gm/dl (12.0-16.0); Lymphocyte (Absolute #) 1.62 (1.0-4.6); Lymphocytes % 14.8 % (24.0-44.0); Mean Cell Volume 90.3 fl (78-100); Mean Corpuscular Hemoglobin 29.9 pg (26-32); Mean Corpuscular Hgb Concent. 33.1 g/dl (32-36); Mean Platelet Volume 9.7 fl (6-9.5); Monocyte (Absolute #) 0.96 (0.0-1.3); Monocytes % 8.7 % (0.0-12.0); Platelet Count 235 K/mm3 (150-450); Red Blood Count 3.71 M/mm3 (4.1-5.4); Red Cell Distribution Width 15.1 % (11.5-14.0)
[2018-04-25 06:37] LABS: ANION GAP 13.7 MEQ/L (5-15); Calcium 9.5 mg/dL (8.4-10.2); Creatinine 1 2.05 mg/dL (0.52-1.04); Potassium 4.1 mmol/L (3.5-5.1)
[2018-04-25] MEDS: Sodium Chloride 0.9% 1000 ML 1,000 ML IV SCH ×2 (08:00→19:40)
[2018-04-25] MEDS ORDERED: LEVOFLOXACIN 750MG/150ML D5W 750 MG/150 ML BAG IV SCH (10:00)
[2018-04-25] MEDS ORDERED: NON-FORMULARY ITEM (Levothyroxine Sodium [Synthroid] 200 MCG) PO SCH (10:00)
[2018-04-25] MEDS ORDERED: VITAMIN B COMPLEX PO SCH (10:00)
[2018-04-25] MEDS: Cyclobenzaprine 10 MG PO SCH ×3 (11:29→21:33)
[2018-04-25] MEDS: Zestril 5 MG PO SCH (11:29)
[2018-04-25] MEDS: BUMEX 1 MG PO SCH ×2 (11:29→17:06)
[2018-04-25] MEDS: ZYLOPRIM 300 MG PO SCH (11:29)
[2018-04-25] MEDS: ELIQUIS 2.5 MG TABLET PO SCH ×2 (11:30→21:33)
[2018-04-25] MEDS: SYNTHROID 25 MCG PO SCH (11:30)
[2018-04-25] MEDS: Klor Con 10 MEQ PO SCH ×2 (11:30→21:33)
[2018-04-25] MEDS: Protonix 40MG Tablet PO SCH (11:30)
[2018-04-25] MEDS: Zaroxolyn 2.5 MG PO SCH (11:30)
[2018-04-25] MEDS: VITA-BEE WITH C PO SCH (11:30)
[2018-04-25] MEDS: MAG-OX 400 PO SCH ×2 (11:30→21:33)
[2018-04-25] MEDS: SYNTHROID 100 MCG PO SCH (11:30)
[2018-04-25] MEDS: Flomax 0.4 MG PO SCH (21:33)
[2018-04-26] MEDS: FLAGYL 500 MG IVPB 500 MG/100 ML BAG IV SCH ×3 (05:30→22:44)
[2018-04-26 05:55] LABS: BASOPHIL % 0.3 % (0.0-0.4); Basophil (Absolute #) 0.03 (0-0.4); Eosinophil % 0.9 % (0.00-5.0); Granulocyte Absolute (ANC) 7.94 (1.4-6.9); Granulocytes % 71.1 % (36.0-66.0); Hematocrit 32.5 % (35-47); Hemoglobin 10.7 gm/dl (12.0-16.0); Lymphocyte (Absolute #) 1.97 (1.0-4.6); Lymphocytes % 17.7 % (24.0-44.0); Mean Cell Volume 90.5 fl (78-100); Mean Corpuscular Hemoglobin 29.8 pg (26-32); Mean Corpuscular Hgb Concent. 32.9 g/dl (32-36); Mean Platelet Volume 9.1 fl (6-9.5); Monocyte (Absolute #) 1.11 (0.0-1.3); Platelet Count 233 K/mm3 (150-450); Red Blood Count 3.59 M/mm3 (4.1-5.4); Red Cell Distribution Width 15.2 % (11.5-14.0); White Blood Count 11.2 K/mm3 (4.0-10.5)
[2018-04-26 06:11] LABS: ANION GAP 14.1 MEQ/L (5-15); BILIRUBIN,TOTAL 0.3 mg/dL (0.2-1.3); Calcium 9.4 mg/dL (8.4-10.2); Creatinine 1 1.5 mg/dL (0.52-1.04); Potassium 3.3 mmol/L (3.5-5.1); Total Protein 6.1 g/dL (6.3-8.2)
[2018-04-26] MEDS: Sodium Chloride 0.9% 1000 ML 1,000 ML IV SCH ×2 (06:41→17:02)
[2018-04-26] MEDS ORDERED: Levofloxacin 500MG/100ML D5W 500 MG/100 ML BAG IV SCH (10:00)
[2018-04-26] MEDS: Protonix 40MG Tablet PO SCH (10:30)
[2018-04-26] MEDS: Zestril 5 MG PO SCH (10:30)
[2018-04-26] MEDS: SYNTHROID 100 MCG PO SCH (10:30)
[2018-04-26] MEDS: SYNTHROID 25 MCG PO SCH (10:30)
[2018-04-26] MEDS: BUMEX 1 MG PO SCH ×2 (10:30→16:54)
[2018-04-26] MEDS: MAG-OX 400 PO SCH ×2 (10:30→22:44)
[2018-04-26] MEDS: Zaroxolyn 2.5 MG PO SCH (10:30)
[2018-04-26] MEDS: Cyclobenzaprine 10 MG PO SCH ×3 (10:30→22:44)
[2018-04-26] MEDS: ZYLOPRIM 300 MG PO SCH (10:30)
[2018-04-26] MEDS: VITA-BEE WITH C PO SCH (10:30)
[2018-04-26] MEDS: ELIQUIS 2.5 MG TABLET PO SCH ×2 (10:31→22:44)
[2018-04-26] MEDS: Klor Con 10 MEQ PO SCH ×2 (10:31→22:44)
--- NOTE | 2018-04-26 11:37 | HP ---
HISTORY OF PRESENT ILLNESS: Ms. Huang is a 77 y/o woman with past medical history of hypertension, congestive heart failure, chronic obstructive pulmonary disease, prior history of pulmonary embolism, chronic renal insufficiency, arthritis, and prior history of diverticulitis. She has been having symptoms of lower abdominal pain and nausea for the week and was placed on PO Flagyl for possible diverticulitis. However, her symptoms continued to get worse and she presented to the Emergency Room with the same earlier today. There was no reported history of fever or chills. Upon initial evaluation in Emergency Room, she was noted to have BP of 158/74, heart rate 112, respiratory rate of 18, temperature 98.3, and O2 saturations of 95%. She had reported left lower abdominal pain. CT scan did show acute diverticulitis, constipation, no free air. She was treated with Levaquin 750 mg IV X 1, NS 1 liter X 1, Flagyl 500 mg IV X 1, morphine 2 mg IV X 1, Zofran 4 mg IV X 1. Subsequently, she was admitted to the medical floor for further monitoring and management. At the time of this evaluation a short while after admission to medical floor, patient was alert, awake, and comfortable. She is having some left lower abdominal pain. Denies nausea or vomiting. Complains of chronic constipation. She states she usually has bowel movement q 3-4 days. Last bowel movement was 5 days ago. Complains of poor appetite. PAST MEDICAL HISTORY: As noted above. Patient has history of chronic back pain. PAST SURGICAL HISTORY: Status post hysterectomy, lumpectomy, history of cardiac catheterization, removal of breast tumor, history of removal of tumor from back, history of basal cell carcinoma. FAMILY HISTORY: Noncontributory. SOCIAL HISTORY: Patient lives at home. No history of smoking. Has history of exposure to secondhand smoke. ALLERGIES: OFLOXACIN AND SULFA. CURRENT MEDICATIONS: Home medications were reviewed. REVIEW OF SYSTEMS: Denies headache or dizziness. Denies fever. Denied chills. Complains of fatigue. Denied chest pain, shortness of breath, or cough. Complains of left lower abdominal pain. Denies nausea or vomiting. Complains of constipation (chronic). Denies blood in stools. Denies urinary complaints. PHYSICAL EXAMINATION: Elderly woman lying comfortably in bed. Not in acute distress. VITAL SIGNS: BP 128/62, heart rate 91, respiratory rate 16, temperature 98.7, O2 saturation 94% on room air. HEENT: Pallor present. NECK: No JVD present. CVS: S1 and S2 present. RESPIRATORY: Breath sounds bilaterally diminished and clear to auscultation anteriorly. ABDOMEN: Obese. Mildly distended, but soft. Left lower quadrant suprapubic area tenderness present. No guarding or rigidity present. NEURO: She is alert and awake. Answers simple questions. Follows simple commands. EXTREMITIES: No edema in bilateral lower extremities. LABORATORY DATA: Labs from today show CBC with WBC of 12.9, otherwise unremarkable. INR is 1.85. BMP is notable for BUN 59, creatinine 2.68. Liver function tests are unremarkable. Lipase is in normal limits. UA showed trace ketones, trace leukocyte esterase, rare epithelial cells, rare bacteria, 2-[address] scan of abdomen/pelvis as noted above. Lactic acid is 1.8. ASSESSMENT: 77 y/o woman with impression: 1. ABDOMINAL PAIN (LEFT LOWER QUADRANT). 2. DIVERTICULITIS. 3. POSSIBLE URINARY TRACT INFECTION. 4. HISTORY OF HYPERTENSION/CONGESTIVE HEART FAILURE. 5. CHRONIC RENAL INSUFFICIENCY. 6. HISTORY OF CHRONIC BACK PAIN. PLAN: 1. Patient admitted for further monitoring and management. 2. Continue IV fluids. 3. Continue PRN analgesics and antiemetics. 4. Continue broad spectrum IV antibiotics. 5. Likely surgical consultation if symptoms persist. Plan was discussed with patient. She seems to be in understanding and agreement. Discussed with patient's nurse.
--- NOTE | 2018-04-26 12:20 | PROG NOTE ---
DATE: 04/25/18 Chart reviewed. Events noted. At the time of this evaluation, the patient is alert and awake. Still having some left lower abdominal pain. Complains of nausea. Appears comfortable. VITALS: BP 126/62, heart rate 78, respiratory rate 16, temperature 98.4, O2 saturation 96% on room air. HEENT: Pallor present. No icterus noted. NECK: No JVD present. CVS: S1 and S2 present. RESPIRATORY: Breath sounds are diminished and clear to auscultation anteriorly. ABDOMEN: Obese, distended, but soft. Left lower quadrant tenderness present. No guarding or rigidity present. NEURO: She is alert and oriented X3. EXTREMITIES: There is no edema on bilateral lower extremities. LABORATORY DATA: Labs from today show CBC with WBC of 11, Hgb 11.1, Hct 33.5, platelets 235. BMP is notable for glucose of 138, BUN 51, creatinine 2.05. Lactic acid from yesterday was 1.8. Hgb A1C from yesterday was 5.91. Medications were reviewed. ASSESSMENT: 77 y/o woman with impression: 1. LEFT LOWER ABDOMINAL PAIN. 2. DIVERTICULITIS (SIGMOID AND DESCENDING COLON AREA). 3. HISTORY OF HYPERTENSION/CONGESTIVE HEART FAILURE. 4. CHRONIC RENAL INSUFFICIENCY. 5. DIABETES MELLITUS. 6. PRIOR HISTORY OF PULMONARY EMBOLISM. 7. HYPOTHYROIDISM. PLAN: 1. Continue broad spectrum IV antibiotics. 2. Continue to follow clinically. 3. Surgery evaluation if symptoms persist. 4. Continue to follow CBC/electrolytes. Plan was discussed with patient. She seems to be in understanding and agreement.
--- NOTE | 2018-04-26 12:47 | PCM.NOTE ---
Date and Time: 04/26/18 1241 Subjective Assessment: still c/o abdominal pain Left lower quadrant - Review of Systems Constitutional: No Fever, No Chills Eyes: No Symptoms Ears, Nose, & Throat: No Symptoms Respiratory: No Cough, No Short Of Breath Cardiac: No Chest Pain, No Edema, No Syncope Abdominal/Gastrointestinal: Abdominal Pain, No Nausea, No Vomiting, No Diarrhea Genitourinary Symptoms: No Dysuria Musculoskeletal: No Back Pain, No Neck Pain Skin: No Rash Neurological: No Dizziness, No Focal Weakness, No Sensory Changes Psychological: No Symptoms Endocrine: No Symptoms Hematologic/Lymphatic: No Symptoms Immunological/Allergic: No Symptoms Objective Exam General Appearance: no apparent distress, alert Neurologic Exam: alert, oriented x 3, cooperative, normal mood/affect, nml cerebellar function, sensation nml, No motor deficits Skin Exam: normal color, warm, dry Eye Exam: PERRL, EOMI, eyes nml inspection Ears, Nose, Throat Exam: normal ENT inspection, pharynx normal, moist mucous membranes Neck Exam: normal inspection, non-tender, supple, full range of motion Respiratory Exam: normal breath sounds, lungs clear, No respiratory distress Cardiovascular Exam: regular rate/rhythm, normal heart sounds Gastrointestinal/Abdomen Exam: tenderness, No mass Extremity Exam: normal inspection, normal range of motion Back Exam: normal inspection, normal range of motion, No CVA tenderness, No vertebral tenderness Pelvic Exam: deferred Rectal Exam: deferred OBJECTIVE DATA Vital Signs: Vital Signs - 24 hr Temp Pulse Resp BP Pulse Ox 04/26/18 11:38 98.6 F 84 16 122/58 94 L 04/26/18 07:06 99.2 F 82 16 120/53 93 L 04/26/18 04:00 99.3 F 81 16 109/55 91 L 04/26/18 00:00 99.1 F 93 H 17 103/53 93 L 04/25/18 20:00 99.8 F 69 17 117/56 97 04/25/18 16:49 98.8 F 99 H 16 114/58 95 04/25/18 16:00 98.4 F 78 16 126/62 96 Pain Assessment - Last Documented Pain Intensity 8 Pain Scale Used 0-10 Pain Scale Intake and Output: Intake & Output 04/24/18 04/25/18 04/26/18 04/27/18 11:59 11:59 11:59 11:59 Intake Total 8386 5190 Output Total 1700 1600 Balance 745 907 Weight 81.3 kg Lab Results: Accuchecks Date 04/26/18 Date 04/26/18 Date 04/25/18 Date 04/25/18 Time 11:30 Time 06:30 Time 16:30 Accucheck Value: 157 Accucheck Value: 127 Accucheck Value: 133 Accucheck Value: 123 Lab Results-Last 24 Hours 04/26/18 04/26/18 Range/Units 05:25 05:25 WBC 11.2 H (4.0-10.5) K/mm3 RBC 3.59 L (4.1-5.4) M/mm3 Hgb 10.7 L (12.0-16.0) gm/dl Hct 32.5 L (35-47) % MCV 90.5 (78-100) fl MCH 29.8 (26-32) pg MCHC 32.9 (32-36) g/dl RDW 15.2 H (11.5-14.0) % Plt Count 233 (150-450) K/mm3 MPV 9.1 (6-9.5) fl Gran % 71.1 H (36.0-66.0) % Eos # (Auto) 0.10 (0-0.5) Absolute Lymphs (auto) 1.97 (1.0-4.6) Absolute Monos (auto) 1.11 (0.0-1.3) Lymphocytes % 17.7 L (24.0-44.0) % Monocytes % 10.0 (0.0-12.0) % Eosinophils % 0.9 (0.00-5.0) % Basophils % 0.3 (0.0-0.4) % Absolute Granulocytes 7.94 H (1.4-6.9) Basophils # 0.03 (0-0.4) Sodium 138 (137-145) mmol/L Potassium 3.3 L (3.5-5.1) mmol/L Chloride 98 (98-107) mmol/L Carbon Dioxide 29 (22-30) mmol/L Anion Gap 14.1 (5-15) MEQ/L BUN 36 H (7-17) mg/dL Creatinine 1.50 H (0.52-1.04) mg/dL Estimated GFR 35.7 ML/MIN Glucose 114 H (74-106) mg/dL Calcium 9.4 (8.4-10.2) mg/dL Total Bilirubin 0.30 (0.2-1.3) mg/dL AST 14 (14-36) U/L ALT 6 (0-35) U/L Alkaline Phosphatase 55 (38-126) U/L Serum Total Protein 6.1 L (6.3-8.2) g/dL Albumin 3.0 L (3.5-5.0) g/dL Assessment/Plan (1) Diverticulitis Current Visit: Yes Status: Acute Code(s): K57.92 - DVTRCLI OF INTEST, PART UNSP, W/O PERF OR ABSCESS W/O BLEED (2) Atrial fibrillation Current Visit: Yes Status: Chronic Qualifiers: Atrial fibrillation type: chronic Qualified Code(s): I48.2 - Chronic atrial fibrillation Code(s): I48.91 - UNSPECIFIED ATRIAL FIBRILLATION (3) Diabetic neuropathy associated with type 2 diabetes mellitus Current Visit: No Status: Chronic Qualifiers: Diabetes mellitus complication detail: with other neurological complication Qualified Code(s): E11.49 - Type 2 diabetes mellitus with other diabetic neurological complication Code(s): E11.40 - TYPE 2 DIABETES MELLITUS WITH DIABETIC NEUROPATHY, UNSP
[2018-04-26] MEDS ORDERED: TYLENOL 325 MG PO PRN (16:33)
[2018-04-26] MEDS: Norco 10/325 MG Tablet PO PRN (18:43)
[2018-04-27] MEDS: Sodium Chloride 0.9% 1000 ML 1,000 ML IV SCH (04:35)
[2018-04-27] MEDS: FLAGYL 500 MG IVPB 500 MG/100 ML BAG IV SCH (05:56)
[2018-04-27 07:22] VITALS: O2SAT 96
[2018-04-27] MEDS: BUMEX 1 MG PO SCH (09:45)
[2018-04-27] MEDS: Klor Con 10 MEQ PO SCH (09:45)
[2018-04-27] MEDS: ZYLOPRIM 300 MG PO SCH (09:46)
[2018-04-27] MEDS: Cyclobenzaprine 10 MG PO SCH (09:46)
[2018-04-27] MEDS: SYNTHROID 25 MCG PO SCH (09:46)
[2018-04-27] MEDS: Zestril 5 MG PO SCH (09:46)
[2018-04-27] MEDS: SYNTHROID 100 MCG PO SCH (09:46)
[2018-04-27] MEDS: Zaroxolyn 2.5 MG PO SCH (09:46)
[2018-04-27] MEDS: Protonix 40MG Tablet PO SCH (09:46)
[2018-04-27] MEDS: VITA-BEE WITH C PO SCH (09:47)
[2018-04-27] MEDS: MAG-OX 400 PO SCH (09:47)
[2018-04-27] MEDS: Norco 10/325 MG Tablet PO PRN (09:51)
[2018-04-27] MEDS: ELIQUIS 2.5 MG TABLET PO SCH (10:14)
[2018-04-27 12:30] VITALS: BP 118/68; PULSE 70
--- NOTE | 2018-04-27 13:07 | PCM.DS ---
Discharge Summary Date of Admission: 04/24/18 14:49 Admitting Physician: CORTEZ ASHFORD Consults: Consults on Case 04/26/18 17:38 Consult Surgery ROUTINE Primary Care Provider: TRINH MINAYA Allergies Allergies ofloxacin [From Floxin] Allergy (Verified 04/24/18 10:45) Sulfa (Sulfonamide Antibiotics) [Sulfa(Sulfonamide Antibiotics)] Allergy ( Verified 04/24/18 10:45) Hospital Summary - Hospital Course Hospital Course: Chief Complaint Diagnosis Diverticulitis Allergies Allergy/AdvReac Type Severity Reaction Status Date / Time ofloxacin [From Floxin] Allergy Verified 04/24/18 10:45 Sulfa (Sulfonamide Allergy Verified 04/24/18 10:45 Antibiotics) [Sulfa(Sulfonamide Antibiotics)] Vital Signs (Last 24 hours) Temp Pulse Resp BP Pulse Ox 04/27/18 12:29 97.4 F 70 20 118/68 96 04/27/18 07:21 96.4 F 64 20 115/61 96 04/27/18 04:00 98.2 F 65 18 115/56 93 L 04/27/18 00:00 98.2 F 73 18 113/54 93 L 04/26/18 20:00 98.8 F 90 18 127/63 91 L 04/26/18 16:00 100.3 F 84 16 131/60 91 L Home Medications Medication Instructions Recorded Confirmed Last Taken Type Metformin HCl 500 mg PO BID 04/24/18 04/24/18 04/24/18 History Metronidazole 500 mg [Flagyl 500 mg PO TID #21 tablet 04/27/18 Unknown Rx 500 MG] Current Medications Generic Name Dose Route Start Last Admin Trade Name Freq PRN Reason Stop Dose Admin Acetaminophen 650 mg 04/26/18 16:33 04/26/18 16:54 Tylenol 325 Mg PO 05/26/18 16:32 650 mg Q4H PRN PRN Administration PAIN AND/OR FEVER Hydrocodone Bitart/Acetaminophen 1 tab 04/26/18 17:38 04/27/18 09:51 Leonardo 10/325 Mg Tablet PO 05/01/18 17:37 1 tab Q4H PRN PRN Administration PAIN Allopurinol 300 mg 04/25/18 10:00 04/27/18 09:46 Zyloprim 300 Mg PO 05/25/18 09:59 300 mg DAILY NKECHI Administration Apixaban 2.5 mg 04/24/18 22:00 04/27/18 10:14 Eliquis 2.5 Mg Tablet PO 05/24/18 21:59 2.5 mg BID NKECHI Administration Bumetanide 1 mg 04/24/18 17:00 04/27/18 09:45 Bumex 1 Mg PO 05/24/18 16:59 1 mg BID DIURETIC NKECHI Administration Cyclobenzaprine HCl 10 mg 04/24/18 22:00 04/27/18 09:46 Cyclobenzaprine 10 Mg PO 05/24/18 21:59 10 mg TID NKECHI Administration Sodium Chloride 1,000 mls @ 100 mls/hr 04/24/18 11:15 04/27/18 04:35 Sodium Chloride 0.9% 1000 Ml IV 05/24/18 11:14 100 mls/hr .Q10H NKECHI Administration Metronidazole 500 mg in 100 mls @ 200 mls/hr 04/24/18 22:00 04/27/18 05:56 Flagyl 500 Mg Ivpb IV 05/24/18 21:59 200 mls/hr Q8HT NKECHI Administration Levofloxacin/Dextrose 500 mg in 100 mls @ 100 mls/hr 04/26/18 10:00 04/26/18 10:35 Levofloxacin 500mg/100ml D5w IV 05/26/18 09:59 100 mls/hr Q48H NKECHI Administration Levothyroxine Sodium 25 mcg 04/25/18 10:00 04/27/18 09:46 Synthroid 25 Mcg PO 05/25/18 09:59 25 mcg DAILY NKECHI Administration Levothyroxine Sodium 200 mcg 04/25/18 10:00 04/27/18 09:46 Synthroid 100 Mcg PO 05/25/18 09:59 200 mcg DAILY NKECHI Administration Lisinopril 2.5 mg 04/25/18 10:00 04/27/18 09:46 Zestril 5 Mg PO 05/25/18 09:59 2.5 mg DAILY NKECHI Administration Magnesium Oxide 400 mg 04/24/18 22:00 04/27/18 09:47 Mag-Ox 400 PO 05/24/18 21:59 400 mg BID NKECHI Administration Metolazone 2.5 mg 04/25/18 10:00 04/27/18 09:46 Zaroxolyn 2.5 Mg PO 05/25/18 09:59 2.5 mg DAILY NKECHI Administration Morphine Sulfate 2 mg 04/24/18 13:41 04/25/18 22:43 Morphine Sulfate 2 Mg Inj IV 04/29/18 13:40 2 mg Q4H PRN PRN Administration PAIN Multivitamins 1 tab 04/25/18 10:00 04/27/18 09:47 Melissa-Bee With C PO 05/25/18 09:59 1 tab DAILY NKECHI Administration Nitroglycerin 0.4 mg 04/24/18 16:20 Nitrostat 0.4 Mg Tablet SL 05/24/18 16:19 Q5MIN PRN MR X 3 PRN CHEST PAIN Ondansetron HCl 4 mg 04/24/18 13:41 04/25/18 08:17 Zofran 4 Mg/2 Ml Vial IV 05/24/18 13:40 4 mg Q6H PRN PRN Administration NAUSEA/VOMITING Pantoprazole Sodium 40 mg 04/25/18 10:00 04/27/18 09:46 Protonix 40mg Tablet PO 05/25/18 09:59 40 mg DAILY NKECHI Administration Potassium Chloride 10 meq 04/24/18 22:00 04/27/18 09:45 Klor Con 10 Meq PO 05/24/18 21:59 10 meq BID NKECHI Administration Discontinued Medications Generic Name Dose Route Start Last Admin Trade Name Freq PRN Reason Stop Dose Admin Albuterol/Ipratropium 3 ml 04/24/18 13:41 Duoneb 0.5-3 Mg/3 Ml Neb IH 05/24/18 13:40 Q4HPRN PRN SHORTNESS OF BREATH/WHEEZING Metronidazole 500 mg in 100 mls @ 200 mls/hr 04/24/18 13:01 04/24/18 13:16 Flagyl 500 Mg Ivpb IV 04/24/18 13:30 200 mls/hr STAT STA 200 mls/hr Administration Levofloxacin/Dextrose 750 mg in 150 mls @ 100 mls/hr 04/24/18 13:01 04/24/18 13:46 Levofloxacin 750mg/150ml D5w IV 04/24/18 14:30 100 mls/hr STAT STA 100 mls/hr Administration Metronidazole Confirm 04/24/18 13:07 Flagyl 500 Mg Ivpb Administered 04/24/18 13:08 Dose 500 mg in 100 mls @ ud IV .STK-MED ONE Levofloxacin/Dextrose 750 mg in 150 mls @ 100 mls/hr 04/25/18 10:00 Levofloxacin 750mg/150ml D5w IV 05/25/18 09:59 Q24H10 NKECHI Sodium Chloride 1,000 mls @ 100 mls/hr 04/24/18 13:45 Sodium Chloride 0.9% 1000 Ml IV 05/24/18 13:44 .Q10H NKECHI Levofloxacin/Dextrose Confirm 04/24/18 13:45 Levofloxacin 750mg/150ml D5w Administered 04/24/18 13:46 Dose 750 mg in 150 mls @ ud IV .STK-MED ONE Sodium Chloride Confirm 04/24/18 11:17 Sodium Chloride 0.9% 1000 Ml Administered 04/24/18 11:18 Dose 1,000 mls @ ud .ROUTE .STK-MED ONE Morphine Sulfate 2 mg 04/24/18 11:01 04/24/18 11:27 Morphine Sulfate 2 Mg Inj IV 04/24/18 11:02 2 mg STAT ONE Administration Morphine Sulfate Confirm 04/24/18 11:17 Morphine Sulfate 2 Mg Inj Administered 04/24/18 11:18 Dose 2 mg .ROUTE .STK-MED ONE Ondansetron HCl 4 mg 04/24/18 11:01 04/24/18 11:25 Zofran 4 Mg/2 Ml Vial IV 04/24/18 11:02 4 mg STAT ONE Administration Ondansetron HCl Confirm 04/24/18 11:17 Zofran 4 Mg/2 Ml Vial Administered 04/24/18 11:18 Dose 4 mg .ROUTE .STK-MED ONE Tamsulosin HCl 0.4 mg 04/24/18 22:00 04/25/18 21:33 Flomax 0.4 Mg PO 05/24/18 21:59 0.4 mg HS NKECHI Administration Intake & Output (Last 24 hours) 06/17/18 04/26/18 04/27/18 04/28/18 11:59 11:59 11:59 11:59 Intake Total 2445 2507 2030 420 Output Total 1700 1600 400 600 Balance 993 636 8567 -180 Weight 81.3 kg 81.3 kg Orders (Last 24 hours) Category Date Time Status Consult Surgery ROUTINE Cons 04/26/18 17:38 Active NPO Diet 04/27/18 00:01 Completed Soft Diet Diet 04/26/18 Dinner Completed Soft Diet Diet 04/27/18 Breakfast Active Discharge Routine Discharge 04/27/18 Ordered Acetaminophen 325 mg [Tylenol 325 mg] Med 04/26/18 16:33 Active 650 mg PO Q4H PRN PRN Hydrocodone/APAP 10/325 mg [Leonardo 10/325 MG Tablet Med 04/26/18 17:38 Active *] 1 tab PO Q4H PRN PRN Patient Care Notes (Last 24 hours) 04/26/18 17:37 Nursing Note by Eugenia Clements Called Dr Minaya with pt's concern to increase her diet and get a pain pill order; new orders received. Initialized on 04/26/18 17:37 - END OF NOTE - Vitals & Intake/Output Vital Signs: Vital Signs Temperature 97.4 F 04/27/18 12:29 Pulse Rate 70 04/27/18 12:29 Respiratory Rate 20 04/27/18 12:29 Blood Pressure 118/68 04/27/18 12:29 O2 Sat by Pulse Oximetry 96 04/27/18 12:29 Intake & Output: Intake & Output 04/25/18 04/26/18 04/27/18 04/28/18 11:59 11:59 11:59 11:59 Intake Total 2445 2507 2030 420 Output Total 1700 1600 400 600 Balance 323 534 3703 -180 Weight 81.3 kg 81.3 kg - Lab Result Diagrams: 04/26/18 05:25 04/26/18 05:25 Lab Results-Last 24 Hrs: Accuchecks Date 04/27/18 Date 04/27/18 Date 04/26/18 Date 04/26/18 Time 11:39 Time 07:42 Time 16:30 Accucheck Value: 150 Accucheck Value: 128 Accucheck Value: 218 Accucheck Value: 170 Micro Results-Entire Visit: Accuchecks Date 04/27/18 Date 04/27/18 Date 04/26/18 Date 04/26/18 Time 11:39 Time 07:42 Time 16:30 Accucheck Value: 150 Accucheck Value: 128 Accucheck Value: 218 Accucheck Value: 170 - Procedures and Test Procedures and Tests throughout Hospitalization: Therapy Orders & Screens 04/24/18 16:51 Respiratory Therapy Assessment ONCE Comment: Diagnosis: Diverticulitis Discharge Exam General Appearance: no apparent distress, alert Neurologic Exam: alert, oriented x 3, cooperative, normal mood/affect, nml cerebellar function, sensation nml, No motor deficits Skin Exam: normal color, warm, dry Eye Exam: PERRL, EOMI, eyes nml inspection Ears, Nose, Throat Exam: normal ENT inspection, pharynx normal, moist mucous membranes Neck Exam: normal inspection, non-tender, supple, full range of motion Respiratory Exam: normal breath sounds, lungs clear, No respiratory distress Cardiovascular Exam: regular rate/rhythm, normal heart sounds Gastrointestinal/Abdomen Exam: soft, No tenderness, No mass Extremity Exam: normal inspection, normal range of motion Back Exam: normal inspection, normal range of motion, No CVA tenderness, No vertebral tenderness Pelvic Exam: deferred Rectal Exam: deferred Final Diagnosis/Problem List - Final Discharge Diagnosis/Problem (1) Diverticulitis Current Visit: Yes Status: Acute Assessment & Plan: Patient doesnotwant any surgical intervention at this point of time, will discharge home with flagyl for 7 days (2) Atrial fibrillation Current Visit: Yes Status: Chronic (3) Diabetic neuropathy associated with type 2 diabetes mellitus Current Visit: No Status: Chronic - Discharge Discharge Date: 04/27/18 Disposition: Home, Self-Care Condition: Stable Prescriptions: New Metronidazole 500 mg [Flagyl 500 MG] 500 mg PO TID #21 tablet Continue Magnesium Oxide 400 mg [Mag-Ox 400] 400 mg PO BID Potassium Chloride [Klor-Con 10] 10 meq PO BID Bumetanide 1 mg [Bumex 1 mg] 1 mg PO BID Allopurinol 300 mg [Zyloprim 300 mg] 300 mg PO DAILY PANTOPRAZOLE 40 mg Tablet [Protonix 40MG Tablet] 40 mg PO DAILY Apixaban [Eliquis] 2.5 mg PO BID Metolazone 2.5 mg [Zaroxolyn 2.5 MG] 2.5 mg PO DAILY Levothyroxine Sodium [Synthroid] 25 mcg PO DAILY Levothyroxine Sodium [Synthroid] 200 mcg PO DAILY Nitroglycerin 0.4 mg Tablet [Nitrostat 0.4 MG Tablet] 0.4 mg SL Q5MIN PRN MR X 3 PRN PRN Reason: Chest Pain Lisinopril 5 mg [Zestril 5 MG] 2.5 mg PO DAILY Vitamin B Complex [Super B-50 Complex] 1 each PO DAILY Cyclobenzaprine HCl 10 mg [Cyclobenzaprine 10 MG] 10 mg PO TID Metronidazole [Flagyl] 250 mg PO TID #20 tablet Metformin HCl 500 mg PO BID Instructions: Diverticulitis (DC) Additional Instructions: DR. MINAYA WILL REVIEW YOUR MEDICATIONS AT YOUR NEXT VISIT. PLEASE TAKE YOUR DISCHARGE FOLDER WITH YOU. Follow up with: TRINH MINAYA MD [Primary Care Provider] - 05/04/18 9:15 am Forms: Discharge Instructions
== END 2018-04-27 12:45 | disposition home or self-care (01) | DRG 392 ==
LOC: ED 10:29 → MED SURG 14:49
PROVIDERS: ADMIT General Practice; ATTEND General Practice
DX: K57.92 Diverticulitis of intestine, part unspecified, without perforation or abscess without bleeding (principal); N39.0 Urinary tract infection, site not specified; I13.0 Hypertensive heart and chronic kidney disease with heart failure and stage 1 through stage 4 chronic kidney disease, or unspecified chronic kidney disease; N18.9 Chronic kidney disease, unspecified; G62.9 Polyneuropathy, unspecified; I48.91 Unspecified atrial fibrillation; E11.40 Type 2 diabetes mellitus with diabetic neuropathy, unspecified; E11.49 Type 2 diabetes mellitus with other diabetic neurological complication; I50.9 Heart failure, unspecified; R10.32 Left lower quadrant pain; Z86.711 Personal history of pulmonary embolism; I25.2 Old myocardial infarction; J44.9 Chronic obstructive pulmonary disease, unspecified; Z79.01 Long term (current) use of anticoagulants; E11.9 Type 2 diabetes mellitus without complications; Z79.4 Long term (current) use of insulin; E03.9 Hypothyroidism, unspecified; M19.90 Unspecified osteoarthritis, unspecified site; M06.9 Rheumatoid arthritis, unspecified; Z79.899 Other long term (current) drug therapy; Z85.828 Personal history of other malignant neoplasm of skin
CPT/HCPCS: 36000; 36415; 74176; 80048; 80053; 81000; 83036; 83605; 83690; 85025; 85610; 94760; 96360; 96365; 96367; 96374; 96375; 99285; P9612; J1956; J2270; J2405; A9270-GY

== ENCOUNTER 2019-03-01 20:23 | Emergency (ER) | payer MEDICARE ==
--- NOTE | 2019-03-01 20:44 | ERPHSYRPT ---
- History of Present Illness Time Seen by Provider: 03/01/19 20:35 Historian: patient Exam Limitations: no limitations Physician History: 78 y/o obese white female with h/o cardiomyopathy and diverticulitis, presents with left upper quadrant abd pain and left lower rib margin pain. pt had eaten popcorn and delacruz mushrooms earlier. pain then came on. denies soa and denies cp. Timing/Duration: today Quality: sharpness, stabbing Abdominal Pain Onset Location: LUQ Severity of Pain-Max: moderate Severity of Pain-Current: moderate Associated Symptoms: No chest pain, No diarrhea, No loss of appetite, No nausea , No shortness of breath, No vomiting Previous symptoms: same symptoms as today Allergies/Adverse Reactions: ofloxacin [From Floxin] Allergy (Verified 03/01/19 20:47) Sulfa (Sulfonamide Antibiotics) [Sulfa(Sulfonamide Antibiotics)] Allergy ( Verified 03/01/19 20:47) Home Medications: Allopurinol 300 mg [Zyloprim 300 mg] 300 mg PO DAILY 11/30/16 [History] Apixaban [Eliquis] 2.5 mg PO BID 11/30/16 [History] Bumetanide 1 mg [Bumex 1 mg] 1 mg PO BID 11/30/16 [History] Levothyroxine Sodium [Synthroid] 25 mcg PO DAILY 11/30/16 [History] Levothyroxine Sodium [Synthroid] 200 mcg PO DAILY 11/30/16 [History] Magnesium Oxide 400 mg [Mag-Ox 400] 400 mg PO BID 11/30/16 [History] Metolazone 2.5 mg [Zaroxolyn 2.5 MG] 2.5 mg PO DAILY 11/30/16 [History] PANTOPRAZOLE 40 mg Tablet [Protonix 40MG Tablet] 40 mg PO DAILY 11/30/16 [ History] Potassium Chloride [Klor-Con 10] 10 meq PO BID 11/30/16 [History] Lisinopril 5 mg [Zestril 5 MG] 2.5 mg PO DAILY 05/21/17 [History] Nitroglycerin 0.4 mg Tablet [Nitrostat 0.4 MG Tablet] 0.4 mg SL Q5MIN PRN MR X 3 PRN 05/21/17 [History] Vitamin B Complex [Super B-50 Complex] 1 each PO DAILY 05/21/17 [History] Cyclobenzaprine HCl 10 mg [Cyclobenzaprine 10 MG] 10 mg PO TID 12/17/17 [ History] Metformin HCl 500 mg PO BID 04/24/18 [History] Hx Tetanus, Diphtheria Vaccination/Date Given: Yes Hx Influenza Vaccination/Date Given: Yes Hx Pneumococcal Vaccination/Date Given: Yes - Review of Systems Constitutional: No Symptoms Eyes: No Symptoms Ears, Nose, & Throat: No Symptoms Respiratory: No Symptoms Cardiac: No Symptoms Abdominal/Gastrointestinal: Abdominal Pain (luq), No Nausea, No Vomiting, No Diarrhea Genitourinary Symptoms: No Symptoms Musculoskeletal: No Symptoms Skin: No Symptoms Neurological: No Symptoms Psychological: No Symptoms Endocrine: No Symptoms Hematologic/Lymphatic: No Symptoms Immunological/Allergic: No Symptoms All Other Systems: Reviewed and Negative - Past Medical History Pertinent Past Medical History: Yes Neurological History: Peripheral Neuropathy ENT History: No Pertinent History Cardiac History: Congestive Heart Failure, Hypertension, Myocardial Infarction ( [place]) Respiratory History: CHF, COPD, Emphysema, Pulmonary Embolism Endocrine Medical History: Diabetes Type II, Hypothyroidism Musculoskeletal History: Arthritis, Degenerative Disk Disease, Osteoarthritis, Rheumatoid Arthritis GI Medical History: Diverticulosis, Hemorrhoids, Hernia History: Dialysis, Renal Disease Psycho-Social History: No Pertinent History Female Reproductive Disorders: No Pertinent History Other Medical History: 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 , 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 - Past Surgical History Past Surgical History: Yes Neuro Surgical History: No Pertinent History Cardiac: Cardiac Catheterization Respiratory: No Pertinent History Gastrointestinal: No Pertinent History Genitourinary: No Pertinent History Musculoskeletal: No Pertinent History Female Surgical History: Hysterectomy, Lumpectomy Other Surgical History: breast tumor removed, tumor removed from back benign, 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 - Social History Smoking Status: Never smoker Exposure to second hand smoke: No Drug Use: none Patient Lives Alone: No - Nursing Vital Signs Nursing Vital Signs: Initial Vital Signs Temperature 99.2 F 03/01/19 20:33 Pulse Rate 101 H 03/01/19 20:33 Respiratory Rate 20 03/01/19 20:33 Blood Pressure 154/67 03/01/19 20:33 O2 Sat by Pulse Oximetry 98 03/01/19 20:33 Pain Scale Pain Intensity 7 - Physical Exam General Appearance: mild distress, alert, anxiety Eye Exam: PERRL/EOMI Ears, Nose, Throat Exam: normal ENT inspection, moist mucous membranes Neck Exam: normal inspection, non-tender, supple, full range of motion Respiratory Exam: normal breath sounds, lungs clear, airway intact, No chest tenderness, No respiratory distress Cardiovascular Exam: regular rate/rhythm, normal heart sounds, normal peripheral pulses Gastrointestinal/Abdomen Exam: soft, normal bowel sounds, tenderness (luq), No guarding, No rebound Pelvic Exam: not done Rectal Exam: not done Back Exam: normal inspection, normal range of motion, No CVA tenderness, No vertebral tenderness Extremity Exam: normal inspection, normal range of motion, pelvis stable Neurologic Exam: alert, oriented x 3, cooperative, 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 persistent left ant fascicular block otherwise no changes from comparison ekg dated 12/20/17) Ordered Tests: Active Orders 24 hr Category Date Time Status Clean Catch Urine Specimen STAT Care 03/01/19 20:48 Active EKG-ER Only STAT Care 03/01/19 20:48 Active IV Insertion STAT Care 03/01/19 20:48 Active ABDOMEN AND PELVIS W/0 CONTRAS [CT] Stat Exams 03/01/19 20:49 Taken AMYLASE Stat Lab 03/01/19 20:45 Completed CBC W DIFF Stat Lab 03/01/19 20:45 Completed CMP Stat Lab 03/01/19 20:45 Completed LIPASE Stat Lab 03/01/19 20:45 Completed Lactic Acid Stat Lab 03/01/19 20:48 Results Manual Differential NC Stat Lab 03/01/19 20:45 Completed TROPONIN Q3H Lab 03/01/19 20:45 Completed TROPONIN Q3H Lab 03/02/19 00:00 Ordered TROPONIN Q3H Lab 03/02/19 03:00 Ordered TROPONIN Q3H Lab 03/02/19 06:00 Ordered TROPONIN Q3H Lab 03/02/19 09:00 Ordered UA W/RFX UR CULTURE Stat Lab 03/01/19 20:48 Uncollected Medication Summary Discontinued Medications Generic Name Dose Route Start Last Admin Trade Name Ximena PRN Reason Stop Dose Admin Morphine Sulfate 2 mg 03/01/19 20:48 03/01/19 21:09 Morphine Sulfate 2 Mg Inj IV 03/01/19 20:49 2 mg STAT ONE Administration Morphine Sulfate Confirm 03/01/19 21:09 Morphine Sulfate 2 Mg Inj Administered 03/01/19 21:10 Dose 2 mg .ROUTE .STK-MED ONE Ondansetron HCl 4 mg 03/01/19 20:48 03/01/19 21:10 Zofran 4 Mg/2 Ml Vial IV 03/01/19 20:49 4 mg STAT ONE Administration Ondansetron HCl Confirm 03/01/19 21:09 Zofran 4 Mg/2 Ml Vial Administered 03/01/19 21:10 Dose 4 mg .ROUTE .STK-MED ONE Lab/Rad Data: Laboratory Result Diagrams 03/01/19 20:45 03/01/19 20:45 Laboratory Results 03/01/19 03/01/19 03/01/19 Range/Units 20:48 20:45 20:45 WBC (4.0-10.5) K/mm3 RBC (4.1-5.4) M/mm3 Hgb (12.0-16.0) gm/dl Hct (35-47) % MCV (78-100) fl MCH (26-32) pg MCHC (32-36) g/dl RDW (11.5-14.0) % Plt Count (150-450) K/mm3 MPV (6-9.5) fl Absolute Granulocytes (1.4-6.9) Segmented Neutrophils (36.0-66.0) % Lymphocytes (Manual) (24-44) % Monocytes (Manual) (0.0-12.0) % Eosinophils (Manual) (0.00-3.0) % Platelet Estimate (NORMAL) RBC Morphology Sodium 135 L (137-145) mmol/L Potassium 3.9 (3.5-5.1) mmol/L Chloride 94 L (98-107) mmol/L Carbon Dioxide 31 H (22-30) mmol/L Anion Gap 14.5 (5-15) MEQ/L BUN 39 H (7-17) mg/dL Creatinine 1.32 H (0.52-1.04) mg/dL Estimated GFR 41.3 ML/MIN Glucose 136 H (74-106) mg/dL Lactic Acid 2.6 H (0.4-2.0) Calcium 9.6 (8.4-10.2) mg/dL Total Bilirubin 0.30 (0.2-1.3) mg/dL AST 18 (14-36) U/L ALT 12 (0-35) U/L Alkaline Phosphatase 121 (38-126) U/L Troponin I < 0.012 (0.000-0.034) ng/mL Serum Total Protein 7.5 (6.3-8.2) g/dL Albumin 4.0 (3.5-5.0) g/dL Amylase 94 (30-110) U/L Lipase 194 (23-300) U/L 03/01/19 Range/Units 20:45 WBC 10.7 H (4.0-10.5) K/mm3 RBC 3.83 L (4.1-5.4) M/mm3 Hgb 11.4 L (12.0-16.0) gm/dl Hct 34.5 L (35-47) % MCV 90.1 (78-100) fl MCH 29.7 (26-32) pg MCHC 33.0 (32-36) g/dl RDW 15.7 H (11.5-14.0) % Plt Count 242 (150-450) K/mm3 MPV 8.9 (6-9.5) fl Absolute Granulocytes 5.79 (1.4-6.9) Segmented Neutrophils 57 (36.0-66.0) % Lymphocytes (Manual) 32 (24-44) % Monocytes (Manual) 10 (0.0-12.0) % Eosinophils (Manual) 1 (0.00-3.0) % Platelet Estimate NORMAL (NORMAL) RBC Morphology NORMAL Sodium (137-145) mmol/L Potassium (3.5-5.1) mmol/L Chloride (98-107) mmol/L Carbon Dioxide (22-30) mmol/L Anion Gap (5-15) MEQ/L BUN (7-17) mg/dL Creatinine (0.52-1.04) mg/dL Estimated GFR ML/MIN Glucose (74-106) mg/dL Lactic Acid (0.4-2.0) Calcium (8.4-10.2) mg/dL Total Bilirubin (0.2-1.3) mg/dL AST (14-36) U/L ALT (0-35) U/L Alkaline Phosphatase (38-126) U/L Troponin I (0.000-0.034) ng/mL Serum Total Protein (6.3-8.2) g/dL Albumin (3.5-5.0) g/dL Amylase (30-110) U/L Lipase (23-300) U/L - Progress Progress: improved, pain not gone completely, re-examined Progress Note: 03/01/19 22:16 ct abd/pelvis-mild diverticulitis descending colon. Counseled pt/family regarding: lab results, diagnosis, need for follow-up, rad results - Departure Departure Disposition: Home Clinical Impression: Diverticulitis Condition: Stable Critical Care Time: No Referrals: TRINH MINAYA MD [Primary Care Provider] - Additional Instructions: clear liquid diet. follow up with primary doctor for further management Prescriptions: Hydrocodone/APAP 5-325 Tab^^^ [[place] 5-325 Tablet^^^] 1 tab PO Q6HPRN PRN #10 tablet MDD 6 PRN Reason: Pain Metronidazole 500 mg [Flagyl 500 MG] 500 mg PO TID #21 tablet
[2019-03-01] MEDS ORDERED: Zofran 4 MG/2 ML VIAL IV ONE (20:48)
[2019-03-01] MEDS ORDERED: MORPHINE SULFATE 2 MG INJ IV ONE ×2 (20:48→22:15)
[2019-03-01 20:54] LABS: Lactic Acid 2.6 (0.4-2.0)
[2019-03-01 20:55] LABS: Granulocyte Absolute (ANC) 5.79 (1.4-6.9); Hematocrit 34.5 % (35-47); Hemoglobin 11.4 gm/dl (12.0-16.0); Mean Cell Volume 90.1 fl (78-100); Mean Platelet Volume 8.9 fl (6-9.5); Platelet Count 242 K/mm3 (150-450); Red Blood Count 3.83 M/mm3 (4.1-5.4); Red Cell Distribution Width 15.7 % (11.5-14.0); White Blood Count 10.7 K/mm3 (4.0-10.5)
[2019-03-01 21:04] LABS: Mean Corpuscular Hemoglobin 29.7 pg (26-32)
[2019-03-01 21:07] LABS: ANION GAP 14.5 MEQ/L (5-15); BILIRUBIN,TOTAL 0.3 mg/dL (0.2-1.3); Calcium 9.6 mg/dL (8.4-10.2); Creatinine 1 1.32 mg/dL (0.52-1.04); Potassium 3.9 mmol/L (3.5-5.1); Total Protein 7.5 g/dL (6.3-8.2)
[2019-03-01] MEDS ORDERED: Zofran 4 MG/2 ML VIAL ONE (21:09)
[2019-03-01] MEDS ORDERED: MORPHINE SULFATE 2 MG INJ ONE ×2 (21:09→22:32)
[2019-03-01 21:58] LABS: Eosinophil 1 % (0.00-3.0); Lymphocytes 32 % (24-44); Monocyte 10 % (0.0-12.0); Neutrophils 57 % (36.0-66.0); Total Cells Counted 100
[2019-03-01 21:59] LABS: Platelet Estimate NORMAL (NORMAL)
[2019-03-01] MEDS ORDERED: Flagyl 500 MG PO ONE (22:15)
[2019-03-01] MEDS ORDERED: Flagyl 500 MG ONE (22:33)
[2019-03-01 22:38] LABS: Appearance CLEAR (CLEAR); Bacteria RARE /HPF (NEGATIVE); Bilirubin NEGATIVE (NEGATIVE); Blood NEGATIVE Ery/ul (0-5); Glucose NEGATIVE (NEGATIVE); Ketones NEGATIVE (NEGATIVE); Leukocyte Esterase MODERATE (NEGATIVE); Nitrite NEGATIVE (NEGATIVE); Protein,Urine Dip NEGATIVE (Negative); Urobilinogen NEGATIVE mg/dL (0-1)
[2019-03-01 22:43] VITALS: BP 111/57; PULSE 91; O2SAT 97
--- NOTE | 2019-03-02 08:52 | XRAY ---
Indication: Left lower quadrant pain. Multiple contiguous axial images obtained through the abdomen and pelvis without contrast as ordered. Comparison: April 24, 2018. Lung bases grossly clear. Heart is not enlarged. Stomach is distended with food/fluid. Noncontrasted stomach and bowel loops appear nonobstructed. Normal air-filled appendix. There is again mild diffuse fecal debris throughout and diffuse scattered colonic diverticulosis. Distal descending colon demonstrates minimal wall thickening with pericolonic stranding favoring diverticulitis. No free fluid/air. Stable left lower renal cyst, left adrenal adenoma, hysterectomy, and calcified splenic granulomas. Remaining liver, gallbladder, pancreas, spleen, adrenal glands, kidneys, ureters, and bladder appear unremarkable for noncontrast exam. Again moderate aortoiliac calcifications without AAA. Osseous structures intact again with osteopenia, multilevel degenerative spondylosis, and remote L2 inferior endplate fracture. Impression: 1. Again diffuse colonic diverticulosis with now minimal distal descending diverticulitis. No complications. 2. Again fecal stasis without obstruction. 3. Stable left renal cyst, left adrenal adenoma, and chronic bony findings. CT DI 25.46
== END 2019-03-01 22:56 | disposition home or self-care (01) ==
LOC: ED 20:23
DX: K57.92 Diverticulitis of intestine, part unspecified, without perforation or abscess without bleeding (principal)
CPT/HCPCS: 36000; 36415; 74176; 80053; 81001; 82150; 83605; 83690; 84484; 85025; 87086; 93005; 96374; 96375; 96376; 99284; J2270; J2405; A9270-GY

== ENCOUNTER 2019-04-24 15:32 | Emergency (ER) | payer MEDICARE ==
[2019-04-24] MEDS ORDERED: Sodium Chloride 0.9% 1000 ML 1,000 ML IV SCH (15:45)
--- NOTE | 2019-04-24 15:52 | ERPHSYRPT ---
- History of Present Illness Time Seen by Provider: 04/24/19 15:49 Historian: patient, family Physician History: 78-year-old female with significant past medical history of atrial fibrillation , diabetes mellitus, chronic peripheral neuropathy, basal cell carcinoma of the upper lip and recurrent diverticulitis came to the emergency room with complaining of left lower quadrant and suprapubic area, abdominal pain and tenderness. Patient denies any fever, chills, nausea, vomiting or diarrhea, although she feels constipated. Timing/Duration: day(s) (3-4 days) Quality: cramping Abdominal Pain Onset Location: LLQ, suprapubic Pain Radiation: no radiation Severity of Pain-Max: moderate Severity of Pain-Current: moderate Modifying Factors: Improves With: nothing Associated Symptoms: denies symptoms Allergies/Adverse Reactions: ofloxacin [From Floxin] Allergy (Verified 04/24/19 15:52) Sulfa (Sulfonamide Antibiotics) [Sulfa(Sulfonamide Antibiotics)] Allergy ( Verified 04/24/19 15:52) Home Medications: Allopurinol 300 mg [Zyloprim 300 mg] 300 mg PO DAILY 11/30/16 [History] Apixaban [Eliquis] 2.5 mg PO BID 11/30/16 [History] Bumetanide 1 mg [Bumex 1 mg] 1 mg PO BID 11/30/16 [History] Levothyroxine Sodium [Synthroid] 25 mcg PO DAILY 11/30/16 [History] Levothyroxine Sodium [Synthroid] 200 mcg PO DAILY 11/30/16 [History] Magnesium Oxide 400 mg [Mag-Ox 400] 400 mg PO BID 11/30/16 [History] Metolazone 2.5 mg [Zaroxolyn 2.5 MG] 2.5 mg PO DAILY 11/30/16 [History] PANTOPRAZOLE 40 mg Tablet [Protonix 40MG Tablet] 40 mg PO DAILY 11/30/16 [ History] Potassium Chloride [Klor-Con 10] 10 meq PO BID 11/30/16 [History] Lisinopril 5 mg [Zestril 5 MG] 2.5 mg PO DAILY 05/21/17 [History] Nitroglycerin 0.4 mg Tablet [Nitrostat 0.4 MG Tablet] 0.4 mg SL Q5MIN PRN MR X 3 PRN 05/21/17 [History] Vitamin B Complex [Super B-50 Complex] 1 each PO DAILY 05/21/17 [History] Cyclobenzaprine HCl 10 mg [Cyclobenzaprine 10 MG] 10 mg PO TID 12/17/17 [ History] Metformin HCl 500 mg PO BID 04/24/18 [History] Hx Tetanus, Diphtheria Vaccination/Date Given: Yes Hx Influenza Vaccination/Date Given: Yes Hx Pneumococcal Vaccination/Date Given: Yes - Review of Systems Constitutional: No Fever, No Chills Eyes: No Symptoms Ears, Nose, & Throat: No Symptoms Respiratory: No Cough, No Dyspnea Cardiac: No Chest Pain, No Edema, No Syncope Abdominal/Gastrointestinal: Abdominal Pain, No Nausea, No Vomiting, No Diarrhea Genitourinary Symptoms: No Dysuria Musculoskeletal: No Back Pain, No Neck Pain Skin: No Rash Neurological: No Dizziness, No Focal Weakness, No Sensory Changes Psychological: No Symptoms Endocrine: No Symptoms All Other Systems: Reviewed and Negative - Past Medical History Pertinent Past Medical History: Yes Neurological History: Peripheral Neuropathy ENT History: No Pertinent History Cardiac History: Congestive Heart Failure, Hypertension, Myocardial Infarction ( [place]) Respiratory History: CHF, COPD, Emphysema, Pulmonary Embolism Endocrine Medical History: Diabetes Type II, Hypothyroidism Musculoskeletal History: Arthritis, Degenerative Disk Disease, Osteoarthritis, Rheumatoid Arthritis GI Medical History: Diverticulosis, Hemorrhoids, Hernia History: Dialysis, Renal Disease Psycho-Social History: No Pertinent History Female Reproductive Disorders: No Pertinent History Other Medical History: 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 , 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 - Past Surgical History Past Surgical History: Yes Neuro Surgical History: No Pertinent History Cardiac: Cardiac Catheterization Respiratory: No Pertinent History Gastrointestinal: No Pertinent History Genitourinary: No Pertinent History Musculoskeletal: No Pertinent History Female Surgical History: Hysterectomy, Lumpectomy Other Surgical History: breast tumor removed, tumor removed from back benign, 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 - Social History Smoking Status: Never smoker Exposure to second hand smoke: No Drug Use: none Patient Lives Alone: No - Nursing Vital Signs Nursing Vital Signs: Initial Vital Signs Temperature 98.9 F 04/24/19 15:47 Pulse Rate 120 H 04/24/19 15:47 Respiratory Rate 18 04/24/19 15:47 Blood Pressure 151/87 04/24/19 15:47 O2 Sat by Pulse Oximetry 97 04/24/19 15:47 Pain Scale Pain Intensity 4 - Physical Exam General Appearance: no apparent distress, alert Eye Exam: PERRL/EOMI, eyes nml inspection Ears, Nose, Throat Exam: normal ENT inspection, pharynx normal, moist mucous membranes Neck Exam: normal inspection, non-tender, supple, full range of motion Respiratory Exam: normal breath sounds, lungs clear, No respiratory distress Cardiovascular Exam: normal heart sounds, irregular Gastrointestinal/Abdomen Exam: soft, tenderness (LLQ, suprapubic), No mass Back Exam: normal inspection, normal range of motion, No CVA tenderness, No vertebral tenderness Extremity Exam: normal inspection, normal range of motion, pelvis stable Neurologic Exam: alert, oriented x 3, cooperative, normal mood/affect, nml cerebellar function, sensation nml, No motor deficits Skin Exam: normal color, warm, dry - Course Nursing assessment & vital signs reviewed: Yes - CT Exams Abdomen/Pelvis CT Interpretation: Tele-radiologist Report Ordered Tests: Active Orders 24 hr Category Date Time Status IV Insertion STAT Care 04/24/19 15:45 Active ABDOMEN AND PELVIS W/0 CONTRAS [CT] Stat Exams 04/24/19 15:46 Taken AMYLASE Stat Lab 04/24/19 15:50 Completed CBC W DIFF Stat Lab 04/24/19 15:50 Completed CMP Stat Lab 04/24/19 15:50 Completed LIPASE Stat Lab 04/24/19 15:50 Completed Lactic Acid Stat Lab 04/24/19 15:50 Completed UA W/RFX UR CULTURE Stat Lab 04/24/19 15:47 Uncollected Medication Summary Generic Name Dose Route Start Last Admin Trade Name Freq PRN Reason Stop Dose Admin Sodium Chloride 1,000 mls @ 100 mls/hr 04/24/19 15:45 04/24/19 16:32 Sodium Chloride 0.9% 1000 Ml IV 05/24/19 15:44 100 mls/hr .Q10H NKECHI Administration Discontinued Medications Generic Name Dose Route Start Last Admin Trade Name Freq PRN Reason Stop Dose Admin Metronidazole 500 mg in 100 mls @ 200 mls/hr 04/24/19 16:05 04/24/19 16:33 Flagyl 500 Mg Ivpb IV 04/24/19 16:34 200 ml/hr STAT STA 200 mls/hr Administration Metronidazole Confirm 04/24/19 16:29 Flagyl 500 Mg Ivpb Administered 04/24/19 16:30 Dose 500 mg in 100 mls @ ud IV .K-MED ONE Lab/Rad Data: Laboratory Result Diagrams 04/24/19 15:50 04/24/19 15:50 Laboratory Results 04/24/19 04/24/19 04/24/19 Range/Units 15:50 15:50 15:50 WBC 14.6 H (4.0-10.5) K/mm3 RBC 4.10 (4.1-5.4) M/mm3 Hgb 12.1 (12.0-16.0) gm/dl Hct 36.3 (35-47) % MCV 88.5 (78-100) fl MCH 29.5 (26-32) pg MCHC 33.3 (32-36) g/dl RDW 16.0 H (11.5-14.0) % Plt Count 276 (150-450) K/mm3 MPV 9.0 (6-9.5) fl Gran % 71.1 H (36.0-66.0) % Eos # (Auto) 0.19 (0-0.5) Absolute Lymphs (auto) 2.85 (1.0-4.6) Absolute Monos (auto) 1.14 (0.0-1.3) Lymphocytes % 19.6 L (24.0-44.0) % Monocytes % 7.8 (0.0-12.0) % Eosinophils % 1.3 (0.00-5.0) % Basophils % 0.2 (0.0-0.4) % Absolute Granulocytes 10.34 H (1.4-6.9) Basophils # 0.03 (0-0.4) Sodium 133 L (137-145) mmol/L Potassium 3.6 (3.5-5.1) mmol/L Chloride 91 L (98-107) mmol/L Carbon Dioxide 30 (22-30) mmol/L Anion Gap 16.2 H (5-15) MEQ/L BUN 34 H (7-17) mg/dL Creatinine 1.03 (0.52-1.04) mg/dL Estimated GFR 54.9 ML/MIN Glucose 149 H (74-106) mg/dL Lactic Acid 1.5 (0.4-2.0) Calcium 9.8 (8.4-10.2) mg/dL Total Bilirubin 0.80 (0.2-1.3) mg/dL AST 24 (14-36) U/L ALT 17 (0-35) U/L Alkaline Phosphatase 88 (38-126) U/L Serum Total Protein 8.0 (6.3-8.2) g/dL Albumin 4.2 (3.5-5.0) g/dL Amylase 100 (30-110) U/L Lipase 132 (23-300) U/L - Progress Progress: improved Counseled pt/family regarding: lab results, diagnosis, need for follow-up, rad results - Departure Departure Disposition: Home Clinical Impression: Diverticulitis Condition: Stable Critical Care Time: No Referrals: TRINH MINAYA MD [Primary Care Provider] - Instructions: Diverticulitis (DC), Diverticulitis Additional Instructions: ABDOMINAL PAIN 1. There are several different causes for abdominal pain, some of which may not be able to be identified on initial examination. 2. The important thing to remember is that bodily functions can change in a short period of time. If you notice any of the following symptoms, return to the emergency department or consult your doctor immediately: A. Worsening pain or no improvement in the next 12 hours. B. Increasing, severe abdominal pain C. Blood in stool D. Black stools E. Persistent vomiting F. Fever or chills or other symptoms Discharge/Care Plan CECY OMALLEY was seen on 04/24/19 in the Emergency Room. The patient was counseled regarding Diagnosis,Lab results, Imaging studies, need for follow up and when to return to the Emergency Room. Prescriptions given: Discharge Note I have spoken with the patient and/or caregivers. I have explained the patient' s condition, diagnosis and treatment plan based on the information available to me at this time. I have answered the patient's and/or caregiver's questions and addressed any concerns. The patient and/or caregivers have as good understanding of the patient's diagnosis, condition and treatment plan as can be expected at this point. The vital signs have been stable. The patient's condition is stable and appropriate for discharge from the emergency department. The patient will pursue further outpatient evaluation with the primary care physician or other designated or consulting physician as outlined in the discharge instructions. The patient and/or caregivers are agreeable to this plan of care and follow-up instructions have been explained in detail. The patient and/or caregivers have received these instruction. The patient/and or caregivers are aware that any significant change in condition or worsening of symptoms should prompt an immediate return to this or the closest emergency department or call 911. Prescriptions: Metronidazole 500 mg [Flagyl 500 MG] 500 mg PO TID #30 tablet
[2019-04-24 16:00] LABS: BASOPHIL % 0.2 % (0.0-0.4); Basophil (Absolute #) 0.03 (0-0.4); Eosinophil % 1.3 % (0.00-5.0); Eosinophil (Absolute #) 0.19 (0-0.5); Granulocyte Absolute (ANC) 10.34 (1.4-6.9); Granulocytes % 71.1 % (36.0-66.0); Hematocrit 36.3 % (35-47); Hemoglobin 12.1 gm/dl (12.0-16.0); Lymphocyte (Absolute #) 2.85 (1.0-4.6); Lymphocytes % 19.6 % (24.0-44.0); Mean Cell Volume 88.5 fl (78-100); Mean Corpuscular Hemoglobin 29.5 pg (26-32); Mean Corpuscular Hgb Concent. 33.3 g/dl (32-36); Monocyte (Absolute #) 1.14 (0.0-1.3); Monocytes % 7.8 % (0.0-12.0); Platelet Count 276 K/mm3 (150-450); White Blood Count 14.6 K/mm3 (4.0-10.5)
[2019-04-24] MEDS ORDERED: FLAGYL 500 MG IVPB 500 MG/100 ML BAG IV STA (16:05)
[2019-04-24 16:07] LABS: ALBUMIN 4.2 g/dL (3.5-5.0); ANION GAP 16.2 MEQ/L (5-15); BILIRUBIN,TOTAL 0.8 mg/dL (0.2-1.3); Calcium 9.8 mg/dL (8.4-10.2); Creatinine 1 1.03 mg/dL (0.52-1.04); Potassium 3.6 mmol/L (3.5-5.1)
[2019-04-24] MEDS ORDERED: Sodium Chloride 0.9% 1000 ML 1,000 ML ONE (16:28)
[2019-04-24] MEDS ORDERED: FLAGYL 500 MG IVPB 500 MG/100 ML BAG IV ONE (16:29)
[2019-04-24 17:18] VITALS: BP 143/74
[2019-04-24 17:23] LABS: Bacteria NONE SEEN /HPF (NEGATIVE)
[2019-04-24 17:27] LABS: Appearance CLEAR (CLEAR); Bilirubin NEGATIVE (NEGATIVE); Blood NEGATIVE Ery/ul (0-5); Epithelial Cells RARE /HPF (FEW); Glucose NEGATIVE (NEGATIVE); Ketones NEGATIVE (NEGATIVE); Leukocyte Esterase SMALL (NEGATIVE); Mucus SLIGHT /HPF (NEGATIVE); Nitrite NEGATIVE (NEGATIVE); Protein,Urine Dip NEGATIVE (Negative); Specific Gravity 1.005 (1.005-1.025); Urobilinogen NEGATIVE mg/dL (0-1)
[2019-04-24 17:50] VITALS: PULSE 76; O2SAT 97
--- NOTE | 2019-04-24 21:19 | XRAY ---
Indication: Lower abdominal pain. Multiple contiguous axial images obtained through the abdomen and pelvis without contrast as ordered. Comparison: March 01, 2019. Lung bases again grossly clear. Heart is not enlarged. Noncontrasted stomach and bowel loops again nonobstructed. Normal appendix. There remains mild diffuse fecal debris and colonic diverticulosis throughout. Presumed reoccurring distal descending/proximal sigmoid colon diverticulitis. Tiny free fluid in the left colic gutter presumed reactive. No walled off fluid collection or free air Stable left renal cyst, left adrenal adenoma, hysterectomy, and calcified splenic granuloma. Remaining liver, gallbladder, pancreas, spleen, adrenal glands, kidneys, ureters, and bladder appear unremarkable for noncontrast exam. Again moderate aortoiliac calcification without AAA. Osseous structures again demonstrates osteopenia, multilevel degenerative spondylosis, and remote L2 inferior endplate fracture. Impression: 1. Again diffuse colonic diverticulosis with presumed reoccurring distal descending and proximal sigmoid diverticulitis. Small free fluid but no walled off fluid collection or free air. 2. Again incidental fecal stasis, left renal cyst, left adrenal adenoma, and chronic bony findings. Comment: Preliminary interpretation was made by [facility]. No critical discrepancy. CTDI 22.24
== END 2019-04-24 17:49 | disposition home or self-care (01) ==
LOC: ED 15:32
DX: K57.92 Diverticulitis of intestine, part unspecified, without perforation or abscess without bleeding (principal); I10 Essential (primary) hypertension; I25.2 Old myocardial infarction; I50.9 Heart failure, unspecified; J44.9 Chronic obstructive pulmonary disease, unspecified; G62.9 Polyneuropathy, unspecified; E03.9 Hypothyroidism, unspecified; M06.9 Rheumatoid arthritis, unspecified; N28.9 Disorder of kidney and ureter, unspecified; Z99.2 Dependence on renal dialysis
CPT/HCPCS: 36415; 74176; 80053; 81001; 82150; 83605; 83690; 85025; 96360; 96365; 99284

== ENCOUNTER 2019-08-07 14:39 | Emergency (ER) | payer MEDICARE, SELFPAY ==
[2019-08-07] MEDS ORDERED: SUBLIMAZE 100 MCG/2 ML IV ONE (14:50)
[2019-08-07] MEDS ORDERED: Norflex 60 MG/2 ML IM ONE (14:50)
[2019-08-07] MEDS ORDERED: TORAdol 30 mg Injection IM ONE (14:50)
[2019-08-07] MEDS ORDERED: TORAdol 30 mg Injection ONE ×2 (15:16→15:25)
[2019-08-07] MEDS ORDERED: Norflex 60 MG/2 ML ONE (15:16)
[2019-08-07] MEDS ORDERED: SUBLIMAZE 100 MCG/2 ML ONE (15:17)
[2019-08-07 15:20] LABS: Hematocrit 31.7 % (35-47); Hemoglobin 10.4 gm/dl (12.0-16.0); Mean Cell Volume 87.8 fl (78-100); Mean Corpuscular Hemoglobin 28.8 pg (26-32); Mean Corpuscular Hgb Concent. 32.8 g/dl (32-36); Mean Platelet Volume 9.3 fl (6-9.5); Platelet Count 275 K/mm3 (150-450); Red Blood Count 3.61 M/mm3 (4.1-5.4); Red Cell Distribution Width 16.3 % (11.5-14.0); White Blood Count 11.4 K/mm3 (4.0-10.5)
[2019-08-07 15:35] LABS: ALBUMIN 4.2 g/dL (3.5-5.0); ANION GAP 17.7 MEQ/L (5-15); BILIRUBIN,TOTAL 0.7 mg/dL (0.2-1.3); Calcium 9.9 mg/dL (8.4-10.2); Creatinine 1 2.03 mg/dL (0.52-1.04); Potassium 4.1 mmol/L (3.5-5.1); Total Protein 7.8 g/dL (6.3-8.2)
--- NOTE | 2019-08-07 15:51 | ERPHSYRPT ---
- History of Present Illness Time Seen by Provider: 08/07/19 15:48 Source: patient, family Exam Limitations: no limitations Patient Subjective Stated Complaint: pt reports she bent over to filler picker a piece of paper off the floor yesterday. states her back popped and cracked and she began having severe pain. reports that she thinks her back "went out". increased pain today. pt also reports she is being treated for diverticulitis and has some extensive weight gain of 10lbs in one week. Triage Nursing Assessment: pt is aox3, pt did stand up from WC and pivot to bed , pupils perrl, afebrile, resps easy and non labored, radial pulses strong and equal, cap refill < 3 seconds, abd is round, non tender, bowel sounds present normoactive x 4, pt skin pink warm dry. pt with limited mobility due to increased pain with movement. edema noted to bilat lower extremities with increased swelling on the right side. skin is intact. tightness noted to the lumbar region of the posterior back, tenderness with palpation posterior lower back as well, no obvious injury or deformity noted. Physician History: pt reports she bent over to filler picker a piece of paper off the floor yesterday. states her back popped and cracked and she began having severe pain. reports that she thinks her back "went out". increased pain today. pt also reports she is being treated for diverticulitis and has some extensive weight gain of 10lbs in one week. Timing/Duration: yesterday Method of Injury: bending Quality: aching Back Pain Location: lumbar spine, paraspinous muscles Severity of Pain-Max: moderate Severity of Pain-Current: moderate Modifying Factors: Improves With: nothing Associated Symptoms: muscle spasms Allergies/Adverse Reactions: ofloxacin [From Floxin] Allergy (Verified 08/07/19 14:58) Sulfa (Sulfonamide Antibiotics) [Sulfa(Sulfonamide Antibiotics)] Allergy ( Verified 08/07/19 14:58) Home Medications: Allopurinol 300 mg [Zyloprim 300 mg] 300 mg PO DAILY 11/30/16 [History] Apixaban [Eliquis] 2.5 mg PO BID 11/30/16 [History] Bumetanide 1 mg [Bumex 1 mg] 1 mg PO BID 11/30/16 [History] Levothyroxine Sodium [Synthroid] 25 mcg PO DAILY 11/30/16 [History] Levothyroxine Sodium [Synthroid] 200 mcg PO DAILY 11/30/16 [History] Magnesium Oxide 400 mg [Mag-Ox 400] 400 mg PO BID 11/30/16 [History] Metolazone 2.5 mg [Zaroxolyn 2.5 MG] 2.5 mg PO DAILY 11/30/16 [History] PANTOPRAZOLE 40 mg Tablet [Protonix 40MG Tablet] 40 mg PO DAILY 11/30/16 [ History] Potassium Chloride [Klor-Con 10] 10 meq PO BID 11/30/16 [History] Lisinopril 5 mg [Zestril 5 MG] 2.5 mg PO DAILY 05/21/17 [History] Nitroglycerin 0.4 mg Tablet [Nitrostat 0.4 MG Tablet] 0.4 mg SL Q5MIN PRN MR X 3 PRN 05/21/17 [History] Vitamin B Complex [Super B-50 Complex] 1 each PO DAILY 05/21/17 [History] Cyclobenzaprine HCl 10 mg [Cyclobenzaprine 10 MG] 10 mg PO TID 12/17/17 [ History] Metformin HCl 500 mg PO BID 04/24/18 [History] Hx Tetanus, Diphtheria Vaccination/Date Given: Yes Hx Influenza Vaccination/Date Given: Yes Hx Pneumococcal Vaccination/Date Given: Yes Immunizations Up to Date: Yes - Review of Systems Constitutional: No Fever, No Chills Eyes: No Symptoms Ears, Nose, & Throat: No Symptoms Respiratory: No Cough, No Dyspnea Cardiac: No Chest Pain, No Edema, No Syncope Abdominal/Gastrointestinal: No Abdominal Pain, No Nausea, No Vomiting, No Diarrhea Genitourinary Symptoms: No Dysuria Musculoskeletal: Back Pain, No Neck Pain, No Fall Skin: No Rash Neurological: No Dizziness, No Focal Weakness, No Sensory Changes Psychological: No Symptoms Endocrine: No Symptoms All Other Systems: Reviewed and Negative - Past Medical History Pertinent Past Medical History: Yes Neurological History: Peripheral Neuropathy ENT History: No Pertinent History Cardiac History: Congestive Heart Failure, Hypertension, Myocardial Infarction ( [place]) Respiratory History: CHF, COPD, Emphysema, Pulmonary Embolism Endocrine Medical History: Diabetes Type II, Hypothyroidism Musculoskeletal History: Arthritis, Degenerative Disk Disease, Osteoarthritis, Rheumatoid Arthritis GI Medical History: Diverticulosis, Hemorrhoids, Hernia History: Dialysis, Renal Disease Psycho-Social History: No Pertinent History Female Reproductive Disorders: No Pertinent History Other Medical History: 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 , 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 - Past Surgical History Past Surgical History: Yes Neuro Surgical History: No Pertinent History Cardiac: Cardiac Catheterization Respiratory: No Pertinent History Gastrointestinal: No Pertinent History Genitourinary: No Pertinent History Musculoskeletal: No Pertinent History Female Surgical History: Hysterectomy, Lumpectomy Other Surgical History: breast tumor removed, tumor removed from back benign, 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 - Social History Smoking Status: Never smoker Exposure to second hand smoke: No Drug Use: none Patient Lives Alone: No - Nursing Vital Signs Nursing Vital Signs: Initial Vital Signs Temperature 99.3 F 08/07/19 14:45 Pulse Rate 105 H 08/07/19 14:45 Respiratory Rate 20 08/07/19 14:45 Blood Pressure 169/74 08/07/19 14:45 O2 Sat by Pulse Oximetry 97 08/07/19 14:45 Pain Scale Pain Intensity 10 - Physical Exam General Appearance: no apparent distress, alert Eye Exam: PERRL/EOMI, eyes nml inspection Neck Exam: normal inspection, non-tender, supple, full range of motion, No meningismus, No midline tenderness Respiratory Exam: normal breath sounds, lungs clear, No respiratory distress Cardiovascular Exam: regular rate/rhythm, normal heart sounds Gastrointestinal Exam: soft, No tenderness, No mass Back Exam: decreased range of motion, muscle spasm Extremity Exam: normal inspection, normal range of motion, No calf tenderness, No pedal edema Neurologic Exam: alert, oriented x 3, cooperative, saddle maker II-XII nml as tested, normal mood/affect, nml station & gait, sensation nml, No motor deficits Skin Exam: normal color, warm, dry, No rash SpO2: 97 - Radiology Exams L-Spine X-ray Interpretation: Reviewed by me (osteoarthritic changes) Ordered Tests: Active Orders 24 hr Category Date Time Status LUMBAR LIMITED (2 OR 3 VIEWS) Stat Exams 08/07/19 14:50 Taken CBC W DIFF Stat Lab 08/07/19 15:15 Completed CMP Stat Lab 08/07/19 15:15 Completed Manual Differential NC Stat Lab 08/07/19 15:15 Completed UA W/RFX UR CULTURE Stat Lab 08/07/19 14:54 Uncollected Medication Summary Discontinued Medications Generic Name Dose Route Start Last Admin Trade Name Ximena PRN Reason Stop Dose Admin Fentanyl Citrate 50 mcg 08/07/19 14:50 08/07/19 15:26 Sublimaze 100 Mcg/2 Ml IV 08/07/19 14:51 50 mcg STAT ONE Administration Fentanyl Citrate Confirm 08/07/19 15:17 Sublimaze 100 Mcg/2 Ml Administered 08/07/19 15:18 Dose 100 mcg .ROUTE .STK-MED ONE Ketorolac Tromethamine 60 mg 08/07/19 14:50 08/07/19 15:24 Toradol 30 Mg Injection IM 08/07/19 14:51 60 mg STAT ONE Administration Ketorolac Tromethamine Confirm 08/07/19 15:16 Toradol 30 Mg Injection Administered 08/07/19 15:17 Dose 30 mg .ROUTE .STK-MED ONE Ketorolac Tromethamine Confirm 08/07/19 15:25 Toradol 30 Mg Injection Administered 08/07/19 15:26 Dose 30 mg .ROUTE .STK-MED ONE Orphenadrine Citrate 60 mg 08/07/19 14:50 08/07/19 15:26 Norflex 60 Mg/2 Ml IM 08/07/19 14:51 60 mg STAT ONE Administration Orphenadrine Citrate Confirm 08/07/19 15:16 Norflex 60 Mg/2 Ml Administered 08/07/19 15:17 Dose 60 mg .ROUTE .STK-MED ONE Lab/Rad Data: Laboratory Result Diagrams 08/07/19 15:15 08/07/19 15:15 Laboratory Results 08/07/19 08/07/19 Range/Units 15:15 15:15 WBC 11.4 H (4.0-10.5) K/mm3 RBC 3.61 L (4.1-5.4) M/mm3 Hgb 10.4 L (12.0-16.0) gm/dl Hct 31.7 L (35-47) % MCV 87.8 (78-100) fl MCH 28.8 (26-32) pg MCHC 32.8 (32-36) g/dl RDW 16.3 H (11.5-14.0) % Plt Count 275 (150-450) K/mm3 MPV 9.3 (6-9.5) fl Sodium 136 L (137-145) mmol/L Potassium 4.1 (3.5-5.1) mmol/L Chloride 95 L (98-107) mmol/L Carbon Dioxide 27 (22-30) mmol/L Anion Gap 17.7 H (5-15) MEQ/L BUN 40 H (7-17) mg/dL Creatinine 2.03 H (0.52-1.04) mg/dL Estimated GFR 25.0 ML/MIN Glucose 146 H (74-106) mg/dL Calcium 9.9 (8.4-10.2) mg/dL Total Bilirubin 0.70 (0.2-1.3) mg/dL AST 26 (14-36) U/L ALT 16 (0-35) U/L Alkaline Phosphatase 85 (38-126) U/L Serum Total Protein 7.8 (6.3-8.2) g/dL Albumin 4.2 (3.5-5.0) g/dL - Progress Progress: improved, pain not gone completely Counseled pt/family regarding: lab results, diagnosis, need for follow-up, rad results - Departure Departure Disposition: Home Clinical Impression: Spondylo-arthropathy Lumbalgia Qualifiers: Chronicity: acute Back pain laterality: bilateral Sciatica presence: without sciatica Qualified Code(s): M54.5 - Low back pain Condition: Stable Critical Care Time: No Referrals: TRINH MINAYA MD [Primary Care Provider] - Follow Up with PCP/3 days Instructions: Sciatica (DC), Low Back Pain (DC) Additional Instructions: Discharge/Care Plan CECY OMALLEY was seen on 08/07/19 in the Emergency Room. The patient was counseled regarding Diagnosis,Lab results, Imaging studies, need for follow up and when to return to the Emergency Room. Prescriptions given: Discharge Note I have spoken with the patient and/or caregivers. I have explained the patient' s condition, diagnosis and treatment plan based on the information available to me at this time. I have answered the patient's and/or caregiver's questions and addressed any concerns. The patient and/or caregivers have as good understanding of the patient's diagnosis, condition and treatment plan as can be expected at this point. The vital signs have been stable. The patient's condition is stable and appropriate for discharge from the emergency department. The patient will pursue further outpatient evaluation with the primary care physician or other designated or consulting physician as outlined in the discharge instructions. The patient and/or caregivers are agreeable to this plan of care and follow-up instructions have been explained in detail. The patient and/or caregivers have received these instruction. The patient/and or caregivers are aware that any significant change in condition or worsening of symptoms should prompt an immediate return to this or the closest emergency department or call 911.
[2019-08-07 15:56] LABS: BAND 3 % (0.0-2.0); Eosinophil 2 % (0.00-3.0); Lymphocytes 18 % (24-44); Monocyte 4 % (0.0-12.0); Neutrophils 73 % (36.0-66.0); Platelet Estimate NORMAL (NORMAL); Total Cells Counted 100
[2019-08-07 16:16] LABS: Appearance SLIGHTLY CLOUDY (CLEAR); Bilirubin NEGATIVE (NEGATIVE); Blood NEGATIVE Ery/ul (0-5); Glucose NEGATIVE (NEGATIVE); Ketones NEGATIVE (NEGATIVE); Leukocyte Esterase NEGATIVE (NEGATIVE); Nitrite NEGATIVE (NEGATIVE); Protein,Urine Dip NEGATIVE (Negative); RBC NONE SEEN /HPF (0-2); Specific Gravity 1.008 (1.005-1.025); Urobilinogen NEGATIVE mg/dL (0-1)
[2019-08-07 16:49] VITALS: O2SAT 95
[2019-08-07 17:05] VITALS: BP 107/54; PULSE 88
--- NOTE | 2019-08-07 20:05 | XRAY ---
Indication: Back pain. Comparison: None 3 views of the lumbar spine demonstrates 5 lumbar vertebral segments in normal alignment with osteopenia, mild/moderate multilevel degenerative spondylosis, remote L2 inferior endplate fracture, L2-L3 degenerative vacuum disc phenomena, and scattered vascular calcifications all unchanged with respect to CT abdomen/pelvis April 24, 2019. No other bony, articular, or soft tissue abnormalities.
== END 2019-08-07 17:04 | disposition home or self-care (01) ==
LOC: ED 14:39
DX: M47.9 Spondylosis, unspecified (principal); M12.9 Arthropathy, unspecified; M54.5 Low back pain; Z79.01 Long term (current) use of anticoagulants; Z79.899 Other long term (current) drug therapy
CPT/HCPCS: 36000; 36415; 72100; 80053; 81001; 85025; 87086; 96372; 96374; 99284; P9612; J1885; J2360; J3010

== ENCOUNTER 2019-11-05 12:41 | Emergency (ER) | payer MEDICARE ==
[2019-11-05 13:02] VITALS: O2SAT 97
[2019-11-05] MEDS ORDERED: Sodium Chloride 0.9% 1000 ML 1,000 ML IV STA (13:16)
[2019-11-05] MEDS ORDERED: TORAdol 30 mg Injection IV ONE (13:16)
--- NOTE | 2019-11-05 13:20 | ERPHSYRPT ---
- History of Present Illness Time Seen by Provider: 11/05/19 13:18 Historian: patient, family Exam Limitations: no limitations Patient Subjective Stated Complaint: pt here for multi co's , co lower back, nausea, she is being treated for diverticuli and states she does not thinks its better, no fever, able to eat, had bm troday Triage Nursing Assessment: pt alert, moaning, resp easy, skin w/d/p.resp easy, abd soft,pt keeps coming back to her lower back pain, edema to lower legs that is normal for her Physician History: pt here for c/o lower back,nausea, she is being treated for diverticuli and states she does not thinks its better, no fever, able to eat, had bowel movement troday Timing/Duration: day(s) Abdominal Pain Onset Location: LLQ Pain Radiation: back Severity of Pain-Max: moderate Severity of Pain-Current: moderate Modifying Factors: Improves With: nothing Associated Symptoms: back, loss of appetite, weakness Previous symptoms: different symptoms Allergies/Adverse Reactions: ofloxacin [From Floxin] Allergy (Verified 11/05/19 13:02) Sulfa (Sulfonamide Antibiotics) [Sulfa(Sulfonamide Antibiotics)] Allergy ( Verified 11/05/19 13:02) Home Medications: Allopurinol 300 mg [Zyloprim 300 mg] 300 mg PO DAILY 11/30/16 [History] Apixaban [Eliquis] 2.5 mg PO BID 11/30/16 [History] Bumetanide 1 mg [Bumex 1 mg] 1 mg PO BID 11/30/16 [History] Levothyroxine Sodium [Synthroid] 25 mcg PO DAILY 11/30/16 [History] Levothyroxine Sodium [Synthroid] 200 mcg PO DAILY 11/30/16 [History] Magnesium Oxide 400 mg [Mag-Ox 400] 400 mg PO BID 11/30/16 [History] Metolazone 2.5 mg [Zaroxolyn 2.5 MG] 2.5 mg PO DAILY 11/30/16 [History] PANTOPRAZOLE 40 mg Tablet [Protonix 40MG Tablet] 40 mg PO DAILY 11/30/16 [ History] Potassium Chloride [Klor-Con 10] 10 meq PO BID 11/30/16 [History] Lisinopril 5 mg [Zestril 5 MG] 2.5 mg PO DAILY 05/21/17 [History] Nitroglycerin 0.4 mg Tablet [Nitrostat 0.4 MG Tablet] 0.4 mg SL Q5MIN PRN MR X 3 PRN 05/21/17 [History] Vitamin B Complex [Super B-50 Complex] 1 each PO DAILY 05/21/17 [History] Cyclobenzaprine HCl 10 mg [Cyclobenzaprine 10 MG] 10 mg PO TID 12/17/17 [ History] Metformin HCl 500 mg PO BID 04/24/18 [History] Hx Tetanus, Diphtheria Vaccination/Date Given: Yes Hx Influenza Vaccination/Date Given: Yes Hx Pneumococcal Vaccination/Date Given: Yes Immunizations Up to Date: Yes - Review of Systems Constitutional: Malaise, Weakness, No Fever, No Chills Eyes: No Symptoms Ears, Nose, & Throat: No Symptoms Respiratory: No Cough, No Dyspnea Cardiac: No Chest Pain, No Edema, No Syncope Abdominal/Gastrointestinal: Abdominal Pain, Nausea, No Vomiting, No Diarrhea Genitourinary Symptoms: Dysuria, Frequency, Incontinence Musculoskeletal: Back Pain, No Neck Pain Skin: No Rash Neurological: No Dizziness, No Focal Weakness, No Sensory Changes Psychological: No Symptoms Endocrine: No Symptoms All Other Systems: Reviewed and Negative - Past Medical History Pertinent Past Medical History: Yes Neurological History: Peripheral Neuropathy ENT History: No Pertinent History Cardiac History: Congestive Heart Failure, Hypertension, Myocardial Infarction ( [place]) Respiratory History: CHF, COPD, Emphysema, Pulmonary Embolism Endocrine Medical History: Diabetes Type II, Hypothyroidism Musculoskeletal History: Arthritis, Degenerative Disk Disease, Osteoarthritis, Rheumatoid Arthritis GI Medical History: Diverticulosis, Hemorrhoids, Hernia History: Dialysis, Renal Disease Psycho-Social History: No Pertinent History Female Reproductive Disorders: No Pertinent History Other Medical History: 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 , 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 - Past Surgical History Past Surgical History: Yes Neuro Surgical History: No Pertinent History Cardiac: Cardiac Catheterization Respiratory: No Pertinent History Gastrointestinal: No Pertinent History Genitourinary: No Pertinent History Musculoskeletal: No Pertinent History Female Surgical History: Hysterectomy, Lumpectomy Other Surgical History: breast tumor removed, tumor removed from back benign, 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 - Social History Smoking Status: Never smoker Exposure to second hand smoke: No Drug Use: none Patient Lives Alone: No - Female History Hx Last Menstrual Period: post Hx Now: No - Nursing Vital Signs Nursing Vital Signs: Initial Vital Signs Temperature 98.3 F 11/05/19 12:53 Pulse Rate 115 H 11/05/19 12:53 Respiratory Rate 18 11/05/19 12:53 Blood Pressure 157/86 11/05/19 12:53 O2 Sat by Pulse Oximetry 97 11/05/19 12:53 Pain Scale Pain Intensity 4 - Physical Exam General Appearance: no apparent distress, alert Eye Exam: PERRL/EOMI, eyes nml inspection Ears, Nose, Throat Exam: normal ENT inspection, pharynx normal, moist mucous membranes Neck Exam: normal inspection, non-tender, supple, full range of motion Respiratory Exam: normal breath sounds, lungs clear, No respiratory distress Cardiovascular Exam: regular rate/rhythm, normal heart sounds Gastrointestinal/Abdomen Exam: soft, No tenderness, No mass Back Exam: normal inspection, normal range of motion, No CVA tenderness, No vertebral tenderness Extremity Exam: normal inspection, normal range of motion, pelvis stable Neurologic Exam: alert, oriented x 3, cooperative, normal mood/affect, nml cerebellar function, sensation nml, No motor deficits Skin Exam: normal color, warm, dry SpO2: 97 - Course Nursing assessment & vital signs reviewed: Yes Ordered Tests: Active Orders 24 hr Category Date Time Status AMYLASE Stat Lab 11/05/19 13:25 Completed CBC W DIFF Stat Lab 11/05/19 13:25 Completed CMP Stat Lab 11/05/19 13:25 Completed LIPASE Stat Lab 11/05/19 13:25 Completed Lactic Acid Stat Lab 11/05/19 13:16 Results UA W/RFX UR CULTURE Stat Lab 11/05/19 14:42 Completed Medication Summary Discontinued Medications Generic Name Dose Route Start Last Admin Trade Name Freq PRN Reason Stop Dose Admin Sodium Chloride 1,000 mls @ 999 mls/hr 11/05/19 13:16 11/05/19 14:51 Sodium Chloride 0.9% 1000 Ml IV 11/05/19 14:16 Infused .Q1H1M STA Infusion Sodium Chloride Confirm 11/05/19 13:22 Sodium Chloride 0.9% 1000 Ml Administered 11/05/19 13:23 Dose 1,000 mls @ ud .ROUTE .STK-MED ONE Ketorolac Tromethamine 30 mg 11/05/19 13:16 11/05/19 13:23 Toradol 30 Mg Injection IV 11/05/19 13:17 30 mg STAT ONE Administration Ketorolac Tromethamine Confirm 11/05/19 13:22 Toradol 30 Mg Injection Administered 11/05/19 13:23 Dose 30 mg .ROUTE .STK-MED ONE Methylprednisolone Sodium Succinate 40 mg 11/05/19 15:04 11/05/19 15:11 Solu-Medrol 40 Mg IV 11/05/19 15:05 40 mg STAT ONE Administration Lab/Rad Data: Laboratory Result Diagrams 11/05/19 13:25 11/05/19 13:25 Laboratory Results 11/05/19 11/05/19 11/05/19 Range/Units 14:42 13:30 13:25 WBC (4.0-10.5) K/mm3 RBC (4.1-5.4) M/mm3 Hgb (12.0-16.0) gm/dl Hct (35-47) % MCV (78-100) fl MCH (26-32) pg MCHC (32-36) g/dl RDW (11.5-14.0) % Plt Count (150-450) K/mm3 MPV (6-9.5) fl Gran % (36.0-66.0) % Eos # (Auto) (0-0.5) Absolute Lymphs (auto) (1.0-4.6) Absolute Monos (auto) (0.0-1.3) Lymphocytes % (24.0-44.0) % Monocytes % (0.0-12.0) % Eosinophils % (0.00-5.0) % Basophils % (0.0-0.4) % Absolute Granulocytes (1.4-6.9) Basophils # (0-0.4) Sodium 132 L (137-145) mmol/L Potassium 4.2 (3.5-5.1) mmol/L Chloride 89 L (98-107) mmol/L Carbon Dioxide 30 (22-30) mmol/L Anion Gap 16.5 H (5-15) MEQ/L BUN 29 H (7-17) mg/dL Creatinine 1.47 H (0.52-1.04) mg/dL Estimated GFR 36.4 ML/MIN Glucose 139 H (74-106) mg/dL Lactic Acid (0.4-2.0) Calcium 10.1 (8.4-10.2) mg/dL Total Bilirubin 0.50 (0.2-1.3) mg/dL AST 29 (14-36) U/L ALT 16 (0-35) U/L Alkaline Phosphatase 85 (38-126) U/L Serum Total Protein 8.1 (6.3-8.2) g/dL Albumin 4.3 (3.5-5.0) g/dL Amylase 52 (30-110) U/L Lipase 56 (23-300) U/L Urine Color YELLOW (YELLOW) Urine Appearance SLIGHTLY CLOUDY (CLEAR) Urine pH 7.0 (5-6) Ur Specific [place] 1.006 (1.005-1.025) Urine Protein NEGATIVE (Negative) Urine Ketones NEGATIVE (NEGATIVE) Urine Blood NEGATIVE (0-5) Quentin/ul Urine Nitrite NEGATIVE (NEGATIVE) Urine Bilirubin NEGATIVE (NEGATIVE) Urine Urobilinogen NEGATIVE (0-1) mg/dL Ur Leukocyte Esterase MODERATE (NEGATIVE) Urine WBC (Auto) 3-5 (0-5) /HPF Urine RBC (Auto) NONE (0-2) /HPF U Epithel Cells (Auto) NONE (FEW) /HPF Urine Bacteria (Auto) NONE (NEGATIVE) /HPF Urine Mucus (Auto) SLIGHT (NEGATIVE) /HPF Urine Culture Reflexed NO (NO) Urine Glucose NEGATIVE (NEGATIVE) mg/dL Influenza Type A Ag NEGATIVE (NEGATIVE) Influenza Type B Ag NEGATIVE (NEGATIVE) RSV (PCR) NEGATIVE (Negative) 11/05/19 11/05/19 Range/Units 13:25 13:16 WBC 10.5 (4.0-10.5) K/mm3 RBC 4.22 (4.1-5.4) M/mm3 Hgb 11.8 L (12.0-16.0) gm/dl Hct 36.2 (35-47) % MCV 85.8 (78-100) fl MCH 28.0 (26-32) pg MCHC 32.6 (32-36) g/dl RDW 17.0 H (11.5-14.0) % Plt Count 288 (150-450) K/mm3 MPV 9.0 (6-9.5) fl Gran % 76.3 H (36.0-66.0) % Eos # (Auto) 0.10 (0-0.5) Absolute Lymphs (auto) 1.70 (1.0-4.6) Absolute Monos (auto) 0.69 (0.0-1.3) Lymphocytes % 16.1 L (24.0-44.0) % Monocytes % 6.5 (0.0-12.0) % Eosinophils % 0.9 (0.00-5.0) % Basophils % 0.2 (0.0-0.4) % Absolute Granulocytes 8.03 H (1.4-6.9) Basophils # 0.02 (0-0.4) Sodium (137-145) mmol/L Potassium (3.5-5.1) mmol/L Chloride (98-107) mmol/L Carbon Dioxide (22-30) mmol/L Anion Gap (5-15) MEQ/L BUN (7-17) mg/dL Creatinine (0.52-1.04) mg/dL Estimated GFR ML/MIN Glucose (74-106) mg/dL Lactic Acid 2.3 H (0.4-2.0) Calcium (8.4-10.2) mg/dL Total Bilirubin (0.2-1.3) mg/dL AST (14-36) U/L ALT (0-35) U/L Alkaline Phosphatase (38-126) U/L Serum Total Protein (6.3-8.2) g/dL Albumin (3.5-5.0) g/dL Amylase (30-110) U/L Lipase (23-300) U/L Urine Color (YELLOW) Urine Appearance (CLEAR) Urine pH (5-6) Ur Specific [place] (1.005-1.025) Urine Protein (Negative) Urine Ketones (NEGATIVE) Urine Blood (0-5) Quentin/ul Urine Nitrite (NEGATIVE) Urine Bilirubin (NEGATIVE) Urine Urobilinogen (0-1) mg/dL Ur Leukocyte Esterase (NEGATIVE) Urine WBC (Auto) (0-5) /HPF Urine RBC (Auto) (0-2) /HPF U Epithel Cells (Auto) (FEW) /HPF Urine Bacteria (Auto) (NEGATIVE) /HPF Urine Mucus (Auto) (NEGATIVE) /HPF Urine Culture Reflexed (NO) Urine Glucose (NEGATIVE) mg/dL Influenza Type A Ag (NEGATIVE) Influenza Type B Ag (NEGATIVE) RSV (PCR) (Negative) - Progress Progress: improved, pain not gone completely Counseled pt/family regarding: lab results, diagnosis, need for follow-up - Departure Departure Disposition: Home Clinical Impression: Spondylo-arthropathy, Diverticulosis of both small and large intestine, Post- nasal drainage Lumbalgia Qualifiers: Chronicity: chronic Back pain laterality: bilateral Sciatica presence: without sciatica Qualified Code(s): M54.5 - Low back pain Condition: Stable Critical Care Time: No Referrals: TRINH MINAYA MD [Primary Care Provider] - Additional Instructions: Discharge/Care Plan CECY OMALLEY was seen on 11/05/19 in the Emergency Room. The patient was counseled regarding Diagnosis,Lab results, Imaging studies, need for follow up and when to return to the Emergency Room. Prescriptions given: Discharge Note I have spoken with the patient and/or caregivers. I have explained the patient' s condition, diagnosis and treatment plan based on the information available to me at this time. I have answered the patient's and/or caregiver's questions and addressed any concerns. The patient and/or caregivers have as good understanding of the patient's diagnosis, condition and treatment plan as can be expected at this point. The vital signs have been stable. The patient's condition is stable and appropriate for discharge from the emergency department. The patient will pursue further outpatient evaluation with the primary care physician or other designated or consulting physician as outlined in the discharge instructions. The patient and/or caregivers are agreeable to this plan of care and follow-up instructions have been explained in detail. The patient and/or caregivers have received these instruction. The patient/and or caregivers are aware that any significant change in condition or worsening of symptoms should prompt an immediate return to this or the closest emergency department or call 911.
[2019-11-05] MEDS ORDERED: Sodium Chloride 0.9% 1000 ML 1,000 ML ONE (13:22)
[2019-11-05] MEDS ORDERED: TORAdol 30 mg Injection ONE (13:22)
[2019-11-05 13:41] LABS: Lactic Acid 2.3 (0.4-2.0)
[2019-11-05 13:46] LABS: Absolute Neutrophil Ct (ANC) 8.03 (1.4-6.9); BASOPHIL % 0.2 % (0.0-0.4); Basophil (Absolute #) 0.02 (0-0.4); Eosinophil % 0.9 % (0.00-5.0); Hematocrit 36.2 % (35-47); Hemoglobin 11.8 gm/dl (12.0-16.0); Lymphocytes % 16.1 % (24.0-44.0); Mean Cell Volume 85.8 fl (78-100); Mean Corpuscular Hgb Concent. 32.6 g/dl (32-36); Monocyte (Absolute #) 0.69 (0.0-1.3); Monocytes % 6.5 % (0.0-12.0); Neutrophil % 76.3 % (36.0-66.0); Platelet Count 288 K/mm3 (150-450); Red Blood Count 4.22 M/mm3 (4.1-5.4); White Blood Count 10.5 K/mm3 (4.0-10.5)
[2019-11-05 13:48] LABS: ALBUMIN 4.3 g/dL (3.5-5.0); ANION GAP 16.5 MEQ/L (5-15); BILIRUBIN,TOTAL 0.5 mg/dL (0.2-1.3); Calcium 10.1 mg/dL (8.4-10.2); Creatinine 1 1.47 mg/dL (0.52-1.04); Potassium 4.2 mmol/L (3.5-5.1); Total Protein 8.1 g/dL (6.3-8.2)
[2019-11-05 14:15] LABS: INFLUENZA A NEGATIVE (NEGATIVE); INFLUENZA B NEGATIVE (NEGATIVE); RESPIRATORY SYNCTIAL VIRUS NEGATIVE (Negative)
[2019-11-05 14:51] VITALS: BP 139/84; PULSE 98
[2019-11-05 14:58] LABS: Appearance SLIGHTLY CLOUDY (CLEAR); Bilirubin NEGATIVE (NEGATIVE); Blood NEGATIVE Ery/ul (0-5); Glucose NEGATIVE (NEGATIVE); Ketones NEGATIVE (NEGATIVE); Leukocyte Esterase MODERATE (NEGATIVE); Mucus SLIGHT /HPF (NEGATIVE); Nitrite NEGATIVE (NEGATIVE); Protein,Urine Dip NEGATIVE (Negative); Specific Gravity 1.006 (1.005-1.025); Urobilinogen NEGATIVE mg/dL (0-1)
[2019-11-05] MEDS ORDERED: solu-MEDROL 40 MG IV ONE (15:04)
== END 2019-11-05 15:31 | disposition home or self-care (01) ==
LOC: ED 12:41
DX: M46.92 Unspecified inflammatory spondylopathy, cervical region (principal); K57.30 Diverticulosis of large intestine without perforation or abscess without bleeding; K57.10 Diverticulosis of small intestine without perforation or abscess without bleeding; R09.82 Postnasal drip; M54.5 Low back pain
CPT/HCPCS: 36415; 80053; 81001; 82150; 83605; 83690; 85025; 87631; 96360; 96374; 96375; 99284; J1885; J2920

== ENCOUNTER 2020-04-14 19:42 | Emergency (ER) | payer MEDICARE, SELFPAY ==
--- NOTE | 2020-04-14 19:49 | ERPHSYRPT ---
- History of Present Illness Time Seen by Provider: 04/14/20 19:48 Source: patient, family Exam Limitations: no limitations Physician History: This is an 79-year-old white female with multiple medical problems including COPD, atrial fibrillation, hypertension, myocardial infarction, chronic low back pain, CHF, obesity, gout, diabetes mellitus, hypothyroid, peripheral neuropathy presents with a two-week history of intermittent headaches and associated blurred vision. Patient states that the vision becomes more blurred during episodes of headache which tend to occur between 5 and 7:00 each evening. Grabs the pain is sharp behind both eyes. He is Dr. De for kidney issues. She sees Dr. 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 Patient denies chest pain she denies any new shortness of air. Her issue today is her 2-week history of headache and associated blurred vision. Timing/Duration: week(s) (2) Quality: sharpness (Headache behind both eyes) Head Pain Location: frontal (Both eyes) Severity of Pain-Max: mild Severity of Pain-Current: mild Recent Head Trauma: no recent headache/trauma, occasional headaches Associated Symptoms: vision changes, visual disturbance, No fever/chills, No loss of consciousness, No nausea/vomiting Previous symptoms: same symptoms as today Allergies/Adverse Reactions: ofloxacin [From Floxin] Allergy (Verified 04/14/20 20:12) Sulfa (Sulfonamide Antibiotics) [Sulfa(Sulfonamide Antibiotics)] Allergy ( Verified 04/14/20 20:12) Home Medications: Allopurinol 300 mg [Zyloprim 300 mg] 300 mg PO DAILY 11/30/16 [History] Apixaban [Eliquis] 2.5 mg PO BID 11/30/16 [History] Bumetanide 1 mg [Bumex 1 mg] 1 mg PO BID 11/30/16 [History] Levothyroxine Sodium [Synthroid] 25 mcg PO DAILY 11/30/16 [History] Levothyroxine Sodium [Synthroid] 200 mcg PO DAILY 11/30/16 [History] Magnesium Oxide 400 mg [Mag-Ox 400] 400 mg PO BID 11/30/16 [History] Metolazone 2.5 mg [Zaroxolyn 2.5 MG] 2.5 mg PO DAILY 11/30/16 [History] PANTOPRAZOLE 40 mg Tablet [Protonix 40MG Tablet] 40 mg PO DAILY 11/30/16 [ History] Potassium Chloride [Klor-Con 10] 10 meq PO BID 11/30/16 [History] Nitroglycerin 0.4 mg Tablet [Nitrostat 0.4 MG Tablet] 0.4 mg SL Q5MIN PRN MR X 3 PRN 05/21/17 [History] Vitamin B Complex [Super B-50 Complex] 1 each PO DAILY 05/21/17 [History] Metformin HCl 500 mg PO BID 04/24/18 [History] Hx Tetanus, Diphtheria Vaccination/Date Given: Yes Hx Influenza Vaccination/Date Given: Yes Hx Pneumococcal Vaccination/Date Given: Yes Travel Risk - International Travel Have you traveled outside of the country in past 3 weeks: No Have you or anyone close to you been diagnosed with or: No Do your reside in a community with a known COVID-19 case?: Yes If Yes where:: [facility] - Coronavirus Screening Has patient experienced Coronavirus symptoms: No - Review of Systems Constitutional: No Symptoms Eyes: Vision Changes (Bilateral blurred) Ears, Nose, & Throat: No Symptoms Respiratory: No Symptoms Cardiac: No Symptoms Abdominal/Gastrointestinal: No Symptoms Genitourinary Symptoms: No Symptoms Musculoskeletal: No Symptoms Skin: No Symptoms Neurological: Headache Psychological: No Symptoms Endocrine: No Symptoms Hematologic/Lymphatic: No Symptoms Immunological/Allergic: No Symptoms All Other Systems: Reviewed and Negative - Past Medical History Pertinent Past Medical History: Yes Neurological History: Peripheral Neuropathy ENT History: No Pertinent History Cardiac History: Congestive Heart Failure, Hypertension, Myocardial Infarction ( [place]) Respiratory History: CHF, COPD, Emphysema, Pulmonary Embolism Endocrine Medical History: Diabetes Type II, Hypothyroidism Musculoskeletal History: Arthritis, Degenerative Disk Disease, Osteoarthritis, Rheumatoid Arthritis GI Medical History: Diverticulosis, Hemorrhoids, Hernia History: Dialysis, Renal Disease Psycho-Social History: No Pertinent History Female Reproductive Disorders: No Pertinent History Other Medical History: 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 , 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 - Past Surgical History Past Surgical History: Yes Neuro Surgical History: No Pertinent History Cardiac: Cardiac Catheterization Respiratory: No Pertinent History Gastrointestinal: No Pertinent History Genitourinary: No Pertinent History Musculoskeletal: No Pertinent History Female Surgical History: Hysterectomy, Lumpectomy Other Surgical History: breast tumor removed, tumor removed from back benign, 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 - Social History Smoking Status: Never smoker Exposure to second hand smoke: No Drug Use: none Patient Lives Alone: No - Nursing Vital Signs Nursing Vital Signs: Initial Vital Signs Temperature 98.5 F 04/14/20 19:56 Pulse Rate 101 H 04/14/20 19:56 Respiratory Rate 18 04/14/20 19:56 Blood Pressure 149/74 04/14/20 19:56 O2 Sat by Pulse Oximetry 97 04/14/20 19:56 Pain Scale Pain Intensity 8 - Physical Exam General Appearance: no apparent distress, alert, anxiety, obese Eye Exam: PERRL/EOMI, eyes nml inspection Ears, Nose, Throat Exam: normal ENT inspection, moist mucous membranes Neck Exam: normal inspection, non-tender, supple, full range of motion Respiratory Exam: normal breath sounds, lungs clear, airway intact, No chest tenderness, No respiratory distress Cardiovascular Exam: regular rate/rhythm, normal heart sounds, normal peripheral pulses Gastrointestinal/Abdominal Exam: soft, normal bowel sounds, No tenderness, No guarding Back Exam: normal inspection, normal range of motion, No CVA tenderness, No vertebral tenderness Extremity Exam: normal inspection, normal range of motion, pelvis stable Mental Status Exam: alert, oriented x 3 cuffer Exam: normal hearing, normal speech, PERRL, tongue midline Coordination/Gait Exam: normal finger to nose, normal gait, normal cerebellar function Motor/Sensory Exam: no motor deficit, no sensory deficit, no pronator drift Skin Exam: normal color, warm, dry Lymphatic Exam: No adenopathy SpO2 Interpretation: normal O2 Delivery: Room Air - Course Nursing assessment & vital signs reviewed: Yes EKG Interpreted by Me: RATE (103), Sinus Tach, Left Bundle Branch Block, Other ( No comparison EKG available. An echocardiogram done in January 2020 shows normal contractility of the left ventricle. There is no evidence of any acute ischemia on today's EKG.) Ordered Tests: Active Orders 24 hr Category Date Time Status EKG-ER Only STAT Care 04/14/20 20:01 Active IV Insertion STAT Care 04/14/20 20:01 Active Isolation, Initiate & Maintain Q4H Care 04/14/20 20:11 Active NPO (ED) STAT Care 04/14/20 20:01 Active Pulse Oximetry (ED) STAT Care 04/14/20 20:01 Active HEAD WITHOUT CONTRAST [CT] Stat Exams 04/14/20 20:01 Completed BMP Stat Lab 04/14/20 20:20 Completed CBC W DIFF Stat Lab 04/14/20 20:20 Completed CULTURE,URINE Stat Lab 04/14/20 20:20 Received Manual Differential NC Stat Lab 04/14/20 20:20 Completed TROPONIN Q3H Lab 04/14/20 20:20 Completed TROPONIN Q3H Lab 04/14/20 23:15 Ordered UA W/RFX UR CULTURE Stat Lab 04/14/20 20:20 Completed Lab/Rad Data: Laboratory Result Diagrams 04/14/20 20:20 04/14/20 20:20 Laboratory Results 04/14/20 04/14/20 04/14/20 Range/Units 20:20 20:20 20:20 WBC (4.0-10.5) K/mm3 RBC (4.1-5.4) M/mm3 Hgb (12.0-16.0) gm/dl Hct (35-47) % MCV (78-100) fl MCH (26-32) pg MCHC (32-36) g/dl RDW (11.5-14.0) % Plt Count (150-450) K/mm3 MPV (7.5-11.0) fl Sodium 131 L (137-145) mmol/L Potassium 3.7 (3.5-5.1) mmol/L Chloride 86 L (98-107) mmol/L Carbon Dioxide 29 (22-30) mmol/L Anion Gap 19.6 H (5-15) MEQ/L BUN 30 H (7-17) mg/dL Creatinine 1.31 H (0.52-1.04) mg/dL Estimated GFR 41.5 ML/MIN Glucose 200 H (74-106) mg/dL Calcium 9.9 (8.4-10.2) mg/dL Troponin I < 0.012 (0.000-0.034) ng/mL Urine Color YELLOW (YELLOW) Urine Appearance SLIGHTLY CLOUDY (CLEAR) Urine pH 6.0 (5-6) Ur Specific [place] 1.009 (1.005-1.025) Urine Protein 100 (Negative) Urine Ketones NEGATIVE (NEGATIVE) Urine Blood NEGATIVE (0-5) Quentin/ul Urine Nitrite NEGATIVE (NEGATIVE) Urine Bilirubin NEGATIVE (NEGATIVE) Urine Urobilinogen NEGATIVE (0-1) mg/dL Ur Leukocyte Esterase SMALL (NEGATIVE) Urine WBC (Auto) 6-10 (0-5) /HPF Urine RBC (Auto) 0-2 (0-2) /HPF U Hyaline Cast (Auto) 0-2 (0-2) /LPF U Epithel Cells (Auto) FEW (FEW) /HPF Urine Bacteria (Auto) NONE (NEGATIVE) /HPF Urine Mucus (Auto) SLIGHT (NEGATIVE) /HPF Urine Culture Reflexed YES (NO) Urine Glucose NEGATIVE (NEGATIVE) mg/dL 04/14/20 Range/Units 20:20 WBC 12.3 H (4.0-10.5) K/mm3 RBC 4.29 (4.1-5.4) M/mm3 Hgb 11.4 L (12.0-16.0) gm/dl Hct 35.5 (35-47) % MCV 82.8 (78-100) fl MCH 26.6 (26-32) pg MCHC 32.1 (32-36) g/dl RDW 17.3 H (11.5-14.0) % Plt Count 285 (150-450) K/mm3 MPV 9.3 (7.5-11.0) fl Sodium (137-145) mmol/L Potassium (3.5-5.1) mmol/L Chloride (98-107) mmol/L Carbon Dioxide (22-30) mmol/L Anion Gap (5-15) MEQ/L BUN (7-17) mg/dL Creatinine (0.52-1.04) mg/dL Estimated GFR ML/MIN Glucose (74-106) mg/dL Calcium (8.4-10.2) mg/dL Troponin I (0.000-0.034) ng/mL Urine Color (YELLOW) Urine Appearance (CLEAR) Urine pH (5-6) Ur Specific [place] (1.005-1.025) Urine Protein (Negative) Urine Ketones (NEGATIVE) Urine Blood (0-5) Quentin/ul Urine Nitrite (NEGATIVE) Urine Bilirubin (NEGATIVE) Urine Urobilinogen (0-1) mg/dL Ur Leukocyte Esterase (NEGATIVE) Urine WBC (Auto) (0-5) /HPF Urine RBC (Auto) (0-2) /HPF U Hyaline Cast (Auto) (0-2) /LPF U Epithel Cells (Auto) (FEW) /HPF Urine Bacteria (Auto) (NEGATIVE) /HPF Urine Mucus (Auto) (NEGATIVE) /HPF Urine Culture Reflexed (NO) Urine Glucose (NEGATIVE) mg/dL - Progress Progress: improved, re-examined Air Movement: good Progress Note: 04/14/20 21:09 CAT scan of the head reveals no evidence of any acute intracranial process or pathology Blood Culture(s) Obtained: No Antibiotics given: Yes Counseled pt/family regarding: lab results, diagnosis, need for follow-up, rad results - Departure Departure Disposition: Home Clinical Impression: Headache, Blurred vision, UTI (urinary tract infection) Condition: Stable Critical Care Time: No Referrals: TRINH MINAYA MD [Primary Care Provider] - Additional Instructions: Drink plenty of fluids. Medication as prescribed. Follow-up with your primary care physician on Thursday, April 16, 2020 for further management. Prescriptions: Cephalexin Mh 500 mg [Keflex 500 mg] 500 mg PO TID #21 capsule
[2020-04-14 20:31] LABS: Hematocrit 35.5 % (35-47); Hemoglobin 11.4 gm/dl (12.0-16.0); Mean Cell Volume 82.8 fl (78-100); Mean Corpuscular Hemoglobin 26.6 pg (26-32); Mean Corpuscular Hgb Concent. 32.1 g/dl (32-36); Mean Platelet Volume 9.3 fl (7.5-11.0); Platelet Count 285 K/mm3 (150-450); Red Blood Count 4.29 M/mm3 (4.1-5.4); Red Cell Distribution Width 17.3 % (11.5-14.0); White Blood Count 12.3 K/mm3 (4.0-10.5)
[2020-04-14 20:49] LABS: ANION GAP 19.6 MEQ/L (5-15); Calcium 9.9 mg/dL (8.4-10.2); Creatinine 1 1.31 mg/dL (0.52-1.04); Potassium 3.7 mmol/L (3.5-5.1)
[2020-04-14 20:53] LABS: Appearance SLIGHTLY CLOUDY (CLEAR); Bilirubin NEGATIVE (NEGATIVE); Blood NEGATIVE Ery/ul (0-5); Epithelial Cells FEW /HPF (FEW); Glucose NEGATIVE (NEGATIVE); Hyaline Casts 0-2 /LPF (0-2); Ketones NEGATIVE (NEGATIVE); Leukocyte Esterase SMALL (NEGATIVE); Mucus SLIGHT /HPF (NEGATIVE); Nitrite NEGATIVE (NEGATIVE); Protein,Urine Dip 100 (Negative); RBC 0-2 /HPF (0-2); Specific Gravity 1.009 (1.005-1.025); Urobilinogen NEGATIVE mg/dL (0-1)
--- NOTE | 2020-04-14 21:06 | XRAY ---
Indication: Severe headache and blurred vision. Multiple contiguous axial images obtained through the head without contrast. Comparison: August 28, 2010. Age-appropriate global atrophy and minimal periventricular degenerative micro-ischemia. No acute intracranial hemorrhage, abnormal extra-axial fluid collection, or mass effect. Fourth ventricle is midline without hydrocephalus. Nguyen-white matter differentiation preserved. Bony calvarium intact. Visualized paranasal sinuses and mastoid air cells are clear. Impression: Nonacute senile brain.
[2020-04-14] MEDS ORDERED: KEFLEX 500 MG PO ONE (21:11)
[2020-04-14] MEDS ORDERED: KEFLEX 500 MG ONE (21:28)
[2020-04-14 21:58] LABS: Eosinophil 2 % (0.00-3.0); Lymphocytes 18 % (24-44); Monocyte 4 % (0.0-12.0); Neutrophils 76 % (36.0-66.0); Platelet Estimate NORMAL (NORMAL); Total Cells Counted 100
[2020-04-14 22:08] VITALS: BP 162/79; PULSE 74; O2SAT 96
== END 2020-04-14 22:08 | disposition home or self-care (01) ==
LOC: ED 19:42
DX: R51 Headache (principal); H53.8 Other visual disturbances; N39.0 Urinary tract infection, site not specified; J44.9 Chronic obstructive pulmonary disease, unspecified; Z86.79 Personal history of other diseases of the circulatory system; I10 Essential (primary) hypertension; I50.9 Heart failure, unspecified; E11.9 Type 2 diabetes mellitus without complications; E03.9 Hypothyroidism, unspecified; G62.9 Polyneuropathy, unspecified; Z79.899 Other long term (current) drug therapy
CPT/HCPCS: 36000; 36415; 70450; 80048; 81001; 84484; 85025; 87086; 93005; 94760; 99284; A9270-GY

== ENCOUNTER 2020-09-05 04:03 | Inpatient (IN) | payer MEDICARE ==
[2020-09-05 05:04] LABS: Hematocrit 35.6 % (35-47); Hemoglobin 10.8 gm/dl (12.0-16.0); Mean Cell Volume 83.8 fl (78-100); Mean Corpuscular Hemoglobin 25.4 pg (26-32); Mean Corpuscular Hgb Concent. 30.3 g/dl (32-36); Mean Platelet Volume 8.9 fl (7.5-11.0); Platelet Count 389 K/mm3 (150-450); Red Blood Count 4.25 M/mm3 (4.1-5.4); Red Cell Distribution Width 17.9 % (11.5-14.0); White Blood Count 12.6 K/mm3 (4.0-10.5)
[2020-09-05] MEDS ORDERED: Zofran 4 MG/2 ML VIAL IV ONE (05:09)
[2020-09-05] MEDS ORDERED: Sodium Chloride 0.9% 1000 ML 1,000 ML IV STA (05:09)
[2020-09-05 05:11] LABS: INR 1.3 (0.8-3.0); PROTIME 14.7 SECONDS (9.95-12.35)
[2020-09-05 05:14] LABS: PTT 37.2 SECONDS (25.3-37.0)
[2020-09-05 05:23] LABS: ALBUMIN 3.7 g/dL (3.5-5.0); ANION GAP 13.6 MEQ/L (5-15); BILIRUBIN,TOTAL 0.3 mg/dL (0.2-1.3); Calcium 9.5 mg/dL (8.4-10.2); Creatinine 1 1.31 mg/dL (0.52-1.04); EST GLOMERULAR FILTRATION RATE 41.4 ML/MIN; Potassium 3.6 mmol/L (3.5-5.1); Total Protein 7.6 g/dL (6.3-8.2)
[2020-09-05] MEDS ORDERED: Sodium Chloride 0.9% 1000 ML 1,000 ML ONE (05:23)
[2020-09-05] MEDS ORDERED: Zofran 4 MG/2 ML VIAL ONE (05:23)
--- NOTE | 2020-09-05 05:23 | ERPHSYRPT ---
- History of Present Illness Source: patient, other (Daughter) Exam Limitations: other (Extremely poor historian) Patient Subjective Stated Complaint: pt c/o nausea, back pain, weakness Triage Nursing Assessment: pt c/o nausea, abd discomfort, back pain and weakness. Pt denies any vomiting. Pt's abd is soft, hypoactive bs x4 quad, tender on palpation. Lungs clear. Pt had iron infusion yesterday and began taking Flagyl yesterday for diverticulitis. Pt denies pain overall, states, "I'm just uncomfortable but no pain". Physician History: 80 yo wf who is a an extremely poor historian presents w nausea/lethargy x6 hours. Pt states that she is mildly dyspneic and could possibly have some abdominal pain. She denies chest pain/vomiting/jose rrhea/fever/cough/melena/hematochezia dysuria/hematuria. Her PCP recently put her on Flagyl for chronic diverticulitis per phone call. Timing/Duration: other (6 hours) Modifying Factors: Improves With: nothing Associated Symptoms: nausea, abdominal pain, shortness of breath, chills, weakness, No vomiting, No heartburn, No diaphoresis, No cough, No chest pain, No fever, No headaches, No loss of appetite, No malaise, No rash, No syncope, No seizure Allergies/Adverse Reactions: ofloxacin [From Floxin] Allergy (Verified 09/05/20 04:35) Sulfa (Sulfonamide Antibiotics) [Sulfa(Sulfonamide Antibiotics)] Allergy (Verified 09/05/20 04:35) Home Medications: Allopurinol 300 mg [Zyloprim 300 mg] 300 mg PO DAILY 11/30/16 [History] Apixaban [Eliquis] 2.5 mg PO BID 11/30/16 [History] Bumetanide 1 mg [Bumex 1 mg] 1 mg PO BID 11/30/16 [History] Levothyroxine Sodium [Synthroid] 25 mcg PO DAILY 11/30/16 [History] Levothyroxine Sodium [Synthroid] 200 mcg PO DAILY 11/30/16 [History] Magnesium Oxide 400 mg [Mag-Ox 400] 400 mg PO BID 11/30/16 [History] Metolazone 2.5 mg [Zaroxolyn 2.5 MG] 2.5 mg PO DAILY 11/30/16 [History] PANTOPRAZOLE 40 mg Tablet [Protonix 40MG Tablet] 40 mg PO DAILY 11/30/16 [History] Potassium Chloride [Klor-Con 10] 30 meq PO BID 11/30/16 [History] Nitroglycerin 0.4 mg Tablet [Nitrostat 0.4 MG Tablet] 0.4 mg SL Q5MIN PRN MR X 3 PRN 05/21/17 [History] Vitamin B Complex [Super B-50 Complex] 1 each PO DAILY 05/21/17 [History] Metformin HCl 500 mg PO BID 04/24/18 [History] metroNIDAZOLE [Flagyl] 500 mg PO TID 09/04/20 [History] Hx Tetanus, Diphtheria Vaccination/Date Given: Yes Hx Influenza Vaccination/Date Given: Yes Hx Pneumococcal Vaccination/Date Given: Yes Immunizations Up to Date: Yes Travel Risk - International Travel Have you traveled outside of the country in past 3 weeks: No - Coronavirus Screening Are you exhibiting any of the following symptoms?: No Close contact with a COVID-19 positive Pt in past 14-21 Days: No - Review of Systems Constitutional: Chills, Fatigue, Lethargy Eyes: No Symptoms Ears, Nose, & Throat: No Symptoms Respiratory: Dyspnea Cardiac: No Symptoms Abdominal/Gastrointestinal: Abdominal Pain, Nausea, No Vomiting, No Diarrhea, No Constipation, No Hematemesis, No Hematochezia, No Melena, No Dysphagia, No Appetite Changes Genitourinary Symptoms: No Symptoms Musculoskeletal: No Symptoms Skin: No Symptoms Neurological: No Symptoms Psychological: No Symptoms Endocrine: No Symptoms Hematologic/Lymphatic: No Symptoms Immunological/Allergic: No Symptoms - Past Medical History Pertinent Past Medical History: Yes Neurological History: Peripheral Neuropathy ENT History: No Pertinent History Cardiac History: Arrhythmia, Congestive Heart Failure, Hypertension, Myocardial Infarction ([place]) Respiratory History: CHF, COPD, Emphysema, Pulmonary Embolism Endocrine Medical History: Diabetes Type II, Hypothyroidism Musculoskeletal History: Arthritis, Degenerative Disk Disease, Osteoarthritis, Rheumatoid Arthritis GI Medical History: Diverticulitis, Diverticulosis, Hemorrhoids, Hernia History: Renal Disease Psycho-Social History: No Pertinent History Female Reproductive Disorders: No Pertinent History Other Medical History: 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 , 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 , myelodysplastic syndrome, intestinal bleed - Past Surgical History Past Surgical History: Yes Neuro Surgical History: No Pertinent History Cardiac: Cardiac Catheterization Respiratory: No Pertinent History Gastrointestinal: No Pertinent History Genitourinary: No Pertinent History Musculoskeletal: No Pertinent History Female Surgical History: Hysterectomy, Lumpectomy Other Surgical History: breast tumor removed, tumor removed from back benign, 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, cauterization due to intestinal bleed - Social History Smoking Status: Never smoker Exposure to second hand smoke: Yes Drug Use: none Patient Lives Alone: No - Female History Hx Now: No - Nursing Vital Signs Nursing Vital Signs: Initial Vital Signs Temperature 97.7 F 09/05/20 04:20 Pulse Rate 109 H 09/05/20 04:20 Respiratory Rate 20 09/05/20 04:20 Blood Pressure 151/94 09/05/20 04:20 O2 Sat by Pulse Oximetry 98 09/05/20 04:20 Pain Scale Pain Intensity 8 - Physical Exam General Appearance: no apparent distress Eye Exam: PERRL/EOMI, eyes nml inspection Ears, Nose, Throat Exam: normal ENT inspection, TMs normal, pharynx normal, moist mucous membranes Neck Exam: normal inspection, non-tender, supple, full range of motion, No meningismus, No mass, No Brudzinski, No Kernig's Respiratory Exam: crackles/rales (Faint rales at bases B), No respiratory distress Cardiovascular Exam: tachycardia (Mildly tachy w 1/6 DOMINICK) Gastrointestinal/Abdomen Exam: soft, normal bowel sounds, No tenderness (Morbidly obese) Back Exam: normal inspection, normal range of motion, No CVA tenderness Extremity Exam: pedal edema (1-2 +) Neurologic Exam: alert, oriented x 3, cooperative, pay per click strategist II-XII nml as tested, normal mood/affect, sensation nml, No motor deficits, No sensory deficit Skin Exam: normal color, warm, dry, No rash Lymphatic Exam: No adenopathy SpO2 Interpretation: normal SpO2: 98 O2 Delivery: Room Air - Course Nursing assessment & vital signs reviewed: Yes EKG Interpreted by Me: RATE (R96/NSR/Poor R wave progression/Old inferior [place]/Prolonged QTc/No acute ST-T wave changes) - CT Exams Chest CT Interpretation: Tele-radiologist Report (Nothing acute) Abdomen/Pelvis CT Interpretation: Tele-radiologist Report (Haziness distal descending colon) Ordered Tests: Active Orders 24 hr Category Date Time Status Bedrest ROUTINE Activity 09/05/20 06:53 Active Code Status Order ROUTINE Care 09/05/20 06:53 Active EKG-ER Only STAT Care 09/05/20 04:52 Active IV Care Q6H Care 09/05/20 06:[address] in Observation ROUTINE Care 09/05/20 06:53 Active Vital Signs Q4H Care 09/05/20 06:52 Active Heart-Healthy Diet Diet 09/05/20 Breakfast Active ABDOMEN AND PELVIS W/0 CONTRAS [CT] Stat Exams 09/05/20 05:16 Taken CHEST WITHOUT CONTRAST [CT] Stat Exams 09/05/20 05:14 Taken BLOOD CULTURE Stat Lab 09/05/20 Ordered CBC W DIFF Stat Lab 09/05/20 05:00 Completed CMP Stat Lab 09/05/20 05:00 Completed CULTURE,URINE Stat Lab 09/05/20 Received Lactic Acid Routine Lab 09/05/20 06:52 Ordered Lactic Acid Stat Lab 09/05/20 05:35 Completed Manual Differential NC Stat Lab 09/05/20 05:00 Completed NT PRO BNP Stat Lab 09/05/20 05:00 Completed PROTIME WITH INR Stat Lab 09/05/20 05:00 Completed PTT Stat Lab 09/05/20 05:00 Completed TROPONIN Q3H Lab 09/05/20 05:00 Completed TROPONIN Q3H Lab 09/05/20 08:00 Ordered TROPONIN Q3H Lab 09/05/20 11:00 Ordered TROPONIN Q3H Lab 09/05/20 14:00 Ordered TROPONIN Q3H Lab 09/05/20 17:00 Ordered UA W/RFX UR CULTURE Stat Lab 09/05/20 Completed Oxygen Nasal Cannula 2 lpm RT 09/05/20 06:52 Active Transfer Order Routine Transfer 09/05/20 Ordered Medication Summary Generic Name Dose Route Start Last Admin Trade Name Freq PRN Reason Stop Dose Admin Hydromorphone HCl 0.5 mg 09/05/20 06:52 Hydromorphone 1 Mg/Ml Injection IV 09/10/20 06:51 Q4H PRN PRN PAIN Sodium Chloride 1,000 mls @ 80 mls/hr 09/05/20 07:00 Sodium Chloride 0.9% 1000 Ml IV 10/05/20 06:59 .[id number] NKECHI Ceftriaxone Sodium/Dextrose 1 g in 50 mls @ 100 mls/hr 09/05/20 10:00 Rocephin 1 Gm-D5w 50 Ml Bag IV 10/05/20 09:59 Q24H10 NKECHI Insulin Human Regular 0 unit 09/05/20 06:52 Humulin R SQ 10/05/20 06:51 UD PRN HYPERGLYCEMIA Ondansetron HCl 4 mg 09/05/20 06:52 Zofran 4 Mg/2 Ml Vial IV 10/05/20 06:51 Q6H PRN PRN NAUSEA/VOMITING Discontinued Medications Generic Name Dose Route Start Last Admin Trade Name Freq PRN Reason Stop Dose Admin Sodium Chloride 1,000 mls @ 999 mls/hr 09/05/20 05:09 09/05/20 06:03 Sodium Chloride 0.9% 1000 Ml IV 09/05/20 06:09 Not Given .Q1H1M STA Sodium Chloride Confirm 09/05/20 05:23 Sodium Chloride 0.9% 1000 Ml Administered 09/05/20 05:24 Dose 1,000 mls @ ud .ROUTE .STK-MED ONE Ondansetron HCl 4 mg 09/05/20 05:09 09/05/20 05:28 Zofran 4 Mg/2 Ml Vial IV 09/05/20 05:10 4 mg STAT ONE Administration Ondansetron HCl Confirm 09/05/20 05:23 Zofran 4 Mg/2 Ml Vial Administered 09/05/20 05:24 Dose 4 mg .ROUTE .STK-MED ONE Lab/Rad Data: Laboratory Result Diagrams 09/05/20 05:00 09/05/20 05:00 Laboratory Results 09/05/20 09/05/20 09/05/20 Range/Units Unknown 05:35 05:00 WBC (4.0-10.5) K/mm3 RBC (4.1-5.4) M/mm3 Hgb (12.0-16.0) gm/dl Hct (35-47) % MCV (78-100) fl MCH (26-32) pg MCHC (32-36) g/dl RDW (11.5-14.0) % Plt Count (150-450) K/mm3 MPV (7.5-11.0) fl PT (9.95-12.35) SECONDS INR (0.8-3.0) APTT (25.3-37.0) SECONDS Sodium (137-145) mmol/L Potassium (3.5-5.1) mmol/L Chloride (98-107) mmol/L Carbon Dioxide (22-30) mmol/L Anion Gap (5-15) MEQ/L BUN (7-17) mg/dL Creatinine (0.52-1.04) mg/dL Estimated GFR ML/MIN Glucose (74-106) mg/dL Lactic Acid 4.1 H (0.4-2.0) Calcium (8.4-10.2) mg/dL Total Bilirubin (0.2-1.3) mg/dL AST (14-36) U/L ALT (0-35) U/L Alkaline Phosphatase (38-126) U/L Troponin I < 0.012 (0.000-0.034) ng/mL NT-Pro-B Natriuret Pep (0-1800) pg/mL Serum Total Protein (6.3-8.2) g/dL Albumin (3.5-5.0) g/dL Urine Color DARK YELLOW (YELLOW) Urine Appearance TURBID (CLEAR) Urine pH 5.0 (5-6) Ur Specific [place] 1.013 (1.005-1.025) Urine Protein 30 (Negative) Urine Ketones NEGATIVE (NEGATIVE) Urine Blood MODERATE (0-5) Quentin/ul Urine Nitrite NEGATIVE (NEGATIVE) Urine Bilirubin NEGATIVE (NEGATIVE) Urine Urobilinogen NEGATIVE (0-1) mg/dL Ur Leukocyte Esterase LARGE (NEGATIVE) Urine WBC (Auto) >100 (0-5) /HPF Urine RBC (Auto) 16-25 (0-2) /HPF U Epithel Cells (Auto) NONE (FEW) /HPF Urine Bacteria (Auto) MANY (NEGATIVE) /HPF Other Casts (Auto) 25-50 (NEGATIVE) /LPF Urine Mucus (Auto) SLIGHT (NEGATIVE) /HPF Urine Yeast (Budding) Rare (NEGATIVE) /HPF Urine Culture Reflexed ORDERED SEPARATELY (NO) Urine Glucose NEGATIVE (NEGATIVE) mg/dL 09/05/20 09/05/20 09/05/20 Range/Units 05:00 05:00 05:00 WBC 12.6 H (4.0-10.5) K/mm3 RBC 4.25 (4.1-5.4) M/mm3 Hgb 10.8 L (12.0-16.0) gm/dl Hct 35.6 (35-47) % MCV 83.8 (78-100) fl MCH 25.4 L (26-32) pg MCHC 30.3 L (32-36) g/dl RDW 17.9 H (11.5-14.0) % Plt Count 389 (150-450) K/mm3 MPV 8.9 (7.5-11.0) fl PT 14.7 H (9.95-12.35) SECONDS INR 1.30 (0.8-3.0) APTT 37.2 H (25.3-37.0) SECONDS Sodium 135 L (137-145) mmol/L Potassium 3.6 (3.5-5.1) mmol/L Chloride 96 L (98-107) mmol/L Carbon Dioxide 29 (22-30) mmol/L Anion Gap 13.6 (5-15) MEQ/L BUN 32 H (7-17) mg/dL Creatinine 1.31 H (0.52-1.04) mg/dL Estimated GFR 41.4 ML/MIN Glucose 133 H (74-106) mg/dL Lactic Acid (0.4-2.0) Calcium 9.5 (8.4-10.2) mg/dL Total Bilirubin 0.30 (0.2-1.3) mg/dL AST 26 (14-36) U/L ALT 10 (0-35) U/L Alkaline Phosphatase 138 H (38-126) U/L Troponin I (0.000-0.034) ng/mL NT-Pro-B Natriuret Pep 550 (0-1800) pg/mL Serum Total Protein 7.6 (6.3-8.2) g/dL Albumin 3.7 (3.5-5.0) g/dL Urine Color (YELLOW) Urine Appearance (CLEAR) Urine pH (5-6) Ur Specific [place] (1.005-1.025) Urine Protein (Negative) Urine Ketones (NEGATIVE) Urine Blood (0-5) Quentin/ul Urine Nitrite (NEGATIVE) Urine Bilirubin (NEGATIVE) Urine Urobilinogen (0-1) mg/dL Ur Leukocyte Esterase (NEGATIVE) Urine WBC (Auto) (0-5) /HPF Urine RBC (Auto) (0-2) /HPF U Epithel Cells (Auto) (FEW) /HPF Urine Bacteria (Auto) (NEGATIVE) /HPF Other Casts (Auto) (NEGATIVE) /LPF Urine Mucus (Auto) (NEGATIVE) /HPF Urine Yeast (Budding) (NEGATIVE) /HPF Urine Culture Reflexed (NO) Urine Glucose (NEGATIVE) mg/dL - Progress Progress: improved Progress Note: 09/05/20 06:[address] Minaya Discussed with : Alexandre Counseled pt/family regarding: lab results, diagnosis, rad results - Departure Departure Disposition: Observation Clinical Impression: UTI (urinary tract infection) Condition: Stable Critical Care Time: No Referrals: TRINH MINAYA MD [Primary Care Provider] -
[2020-09-05 06:42] LABS: Appearance TURBID (CLEAR); Bacteria MANY /HPF (NEGATIVE); Bilirubin NEGATIVE (NEGATIVE); Blood MODERATE Ery/ul (0-5); Glucose NEGATIVE (NEGATIVE); Ketones NEGATIVE (NEGATIVE); Leukocyte Esterase LARGE (NEGATIVE); Mucus SLIGHT /HPF (NEGATIVE); Nitrite NEGATIVE (NEGATIVE); Protein,Urine Dip 30 (Negative); Specific Gravity 1.013 (1.005-1.025); Urobilinogen NEGATIVE mg/dL (0-1); WBC >100 /HPF (0-5)
[2020-09-05 06:43] LABS: Budding Yeast Rare /HPF (NEGATIVE)
[2020-09-05] MEDS ORDERED: Hydromorphone 1 mg/ml Injection IV PRN (06:52)
[2020-09-05] MEDS ORDERED: HUMULIN R SQ PRN (06:52)
[2020-09-05] MEDS ORDERED: Zofran 4 MG/2 ML VIAL IV PRN (06:52)
[2020-09-05] MEDS: Sodium Chloride 0.9% 1000 ML 1,000 ML IV SCH ×2 (07:00→17:17)
[2020-09-05 07:25] LABS: BAND 2 % (0.0-2.0); Eosinophil 2 % (0.00-3.0); Lymphocytes 42 % (24-44); Monocyte 5 % (0.0-12.0); Neutrophils 49 % (36.0-66.0); Platelet Estimate NORMAL (NORMAL); Total Cells Counted 100
[2020-09-05 07:26] LABS: Polychromasia 1+
--- NOTE | 2020-09-05 09:03 | XRAY ---
Indication: Dyspnea. Multiple contiguous axial images obtained through the chest without contrast as ordered. Comparison: November 06, 2009. Lungs are inflated again with minimal left base subsegmental atelectasis/scarring and tiny right upper lobe calcified granuloma. No new pulmonary mass/nodule, infiltrate, or effusion. Heart remains enlarged. Worsening mild/moderate scattered aortic and coronary calcifications. Stable small mediastinal and right hilar calcified nodes. No pathologic mediastinal lymphadenopathy. New small hiatal hernia. Bony thorax again demonstrates osteopenia and flowing osteophytes throughout the spine. New remote-appearing T12-L2 compression fractures with approximately 25% height loss. CT abdomen/pelvis reported separately. Impression: 1. New small hiatal hernia and worsening scattered arteriosclerotic disease. 2. Incidental cardiomegaly, chronic bony findings, and old granulomatous disease. 3. Remaining CT chest without contrast exam is negative. Comment: Preliminary interpretation was made by [facility]. No critical discrepancy.
--- NOTE | 2020-09-05 09:11 | XRAY ---
Indication: Nausea. Multiple contiguous axial images obtained through the abdomen and pelvis without contrast as ordered. Comparison: April 24, 2019. CT chest reported separately. Noncontrasted stomach and bowel loops appear nonobstructed. Normal appendix. There is again mild diffuse scattered colonic fecal debris and diverticulosis throughout. Mid to distal descending and proximal sigmoid colon again demonstrates circumferential wall thickening more than before with stranding and luminal narrowing favoring colitis/diverticulitis. Malignancy not completely excluded. No free fluid/air. Stable left renal cyst, small left adrenal adenoma, calcified splenic granuloma, and hysterectomy. Remaining liver, pancreas, spleen, adrenal glands, kidneys, ureters, and bladder appear unremarkable for noncontrast exam. Osseous structures again demonstrates osteopenia, multilevel degenerative spondylosis, and remote L2 inferior endplate fracture. New remote-appearing T12/L1/L4 compression fractures with 25-50% height loss. Impression: 1. Again diffuse scattered colonic diverticulosis. Worsening descending and proximal sigmoid colon circumferential wall thickening with stranding favoring colitis/diverticulitis. Malignancy not completely excluded. 2. Again incidental mild diffuse fecal stasis, left renal cyst, left adrenal adenoma, and chronic bony findings. Comment: Preliminary interpretation was made by [facility]. No critical discrepancy.
[2020-09-05] MEDS: ROCEPHIN 1 Gm-D5w 50 ml Bag** 1 G/50 ML IVPB IV SCH (11:01)
[2020-09-05] MEDS ORDERED: Nitrostat 0.4 MG Tablet SL PRN (14:03)
[2020-09-05] MEDS ORDERED: NON-FORMULARY ITEM (Hydrocodone/Apap 5-325 Tab^^^ 1 TAB) PO PRN (14:03)
--- NOTE | 2020-09-05 14:09 | PCM.HP ---
History of Present Illness - Chief Complaint Chief Complaint: weakness, for 2-3 days History of Present Illness: is a 80 year old female. who is a an extremely poor historian presents w nausea/lethargy x6 hours. Pt states that she is mildly dyspneic and could possibly have some abdominal pain. She denies chest pain/vomiting/diarrhea/fever/cough/melena/hematochezia dysuria/hematuria. Her PCP recently put her on Flagyl for chronic diverticulitis per phone call. Timing/Duration: other (6 hours) Modifying Factors: Improves With: nothing Associated Symptoms: nausea, abdominal pain, shortness of breath, chills, weakness, No vomiting, No heartburn, No diaphoresis, No cough, No chest pain, No fever, No headaches, No loss of appetite, No malaise, No rash, No syncope, No seizure - Review of Systems Constitutional: No Fever, No Chills Eyes: No Symptoms Ears, Nose, & Throat: No Symptoms Respiratory: No Cough, No Short Of Breath Cardiac: No Chest Pain, No Edema, No Syncope Abdominal/Gastrointestinal: No Abdominal Pain, No Nausea, No Vomiting, No Diarrhea Genitourinary Symptoms: No Dysuria Musculoskeletal: No Back Pain, No Neck Pain Skin: No Rash Neurological: No Dizziness, No Focal Weakness, No Sensory Changes Psychological: No Symptoms Endocrine: No Symptoms Hematologic/Lymphatic: No Symptoms Immunological/Allergic: No Symptoms Medications & Allergies Home Medications: Home Medication List Allopurinol 300 mg [Zyloprim 300 mg] 300 mg PO DAILY 11/30/16 [History Confirmed 09/05/20] Apixaban [Eliquis] 2.5 mg PO BID 11/30/16 [History Confirmed 09/05/20] Bumetanide 1 mg [Bumex 1 mg] 1 mg PO TID 11/30/16 [History Confirmed 09/05/20] Levothyroxine Sodium [Synthroid] 25 mcg PO DAILY 11/30/16 [History Confirmed 09/05/20] Levothyroxine Sodium [Synthroid] 200 mcg PO DAILY 11/30/16 [History Confirmed 09/05/20] Magnesium Oxide 400 mg [Mag-Ox 400] 400 mg PO BID 11/30/16 [History Confirmed 09/05/20] Metolazone 2.5 mg [Zaroxolyn 2.5 MG] 2.5 mg PO DAILY 11/30/16 [History C onfirmed 09/05/20] PANTOPRAZOLE 40 mg Tablet [Protonix 40MG Tablet] 40 mg PO HS 11/30/16 [History Confirmed 09/05/20] Potassium Chloride [Klor-Con 10] 30 meq PO BID 11/30/16 [History Confirmed 1 ] Nitroglycerin 0.4 mg Tablet [Nitrostat 0.4 MG Tablet] 0.4 mg SL Q5MIN PRN MR X 3 PRN 05/21/17 [History Confirmed 09/05/20] Vitamin B Complex [Super B-50 Complex] 1 each PO DAILY 05/21/17 [History Confirmed 09/05/20] Metformin HCl 500 mg PO BID 04/24/18 [History Confirmed 09/05/20] Hydrocodone/APAP 5-325 Tab^^^ [[place] 5-325 Tablet^^^] 1 tab PO Q6HPRN PRN #10 tablet MDD 6 03/01/19 [Rx Confirmed 09/05/20] metroNIDAZOLE [Flagyl] 500 mg PO TID 09/04/20 [History Confirmed 09/05/20] Diclofenac Sodium Gel [Voltaren GEL] 1 gm TOP TID PRN 09/05/20 [History Confirmed 09/05/20] Metoprolol Succinate 25 mg PO DAILY 09/05/20 [History Confirmed 09/05/20] Tamsulosin HCl 0.4 mg [Flomax 0.4 MG] 0.4 mg PO HS 09/05/20 [History Confirmed 09/05/20] Allergies/Adverse Reactions: Allergies Allergy/AdvReac Type Severity Reaction Status Date / Time ofloxacin [From Floxin] Allergy Verified 09/05/20 04:35 Sulfa (Sulfonamide Allergy Verified 09/05/20 04:35 Antibiotics) [Sulfa(Sulfonamide Antibiotics)] - Past Medical History Past Medical History: Yes Neurological History: Peripheral Neuropathy ENT History: No Pertinent History Cardiac History: Arrhythmia, Congestive Heart Failure, Hypertension, Myocardial Infarction ([place]) Respiratory History: CHF, COPD, Emphysema, Pulmonary Embolism Endocrine Medical History: Diabetes Type II, Hypothyroidism Musculoskelatal History: Arthritis, Degenerative Disk Disease, Osteoarthritis, Rheumatoid Arthritis GI Medical History: Diverticulitis, Diverticulosis, Hemorrhoids, Hernia History: Renal Disease Pyscho-Social History: No Pertinent History Reproductive Disorders: No Pertinent History Comment: 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 , 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 , myelodysplastic syndrome, intestinal bleed - Female History Are you now?: No - Past Surgical History Past Surgical History: Yes Neuro Surgical History: No Pertinent History Cardiac History: Cardiac Catheterization Respiratory Surgery: No Pertinent History GI Surgical History: No Pertinent History Genitourinary Surgical Hx: No Pertinent History Musculskeletal Surgical Hx: No Pertinent History Female Surgical History: Hysterectomy, Lumpectomy Other Surgical History: breast tumor removed, tumor removed from back benign, 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, cauterization due to intestinal bleed - Social History Smoking Status: Never smoker Exposure to second hand smoke: Yes Alcohol: None Drug Use: none - Physical Exam Vital Signs: Vital Signs - 24 hr Temp Pulse Resp BP Pulse Ox 09/05/20 09:02 96.8 F 88 18 133/65 97 09/05/20 06:57 98 09/05/20 06:01 94 H 18 136/70 97 09/05/20 04:20 97.7 F 109 H 20 151/94 98 General Appearance: no apparent distress, alert Neurologic Exam: alert, oriented x 3, cooperative, normal mood/affect, nml cerebellar function, nml station & gait, sensation nml, No motor deficits Eye Exam: PERRL/EOMI, eyes nml inspection Ears, Nose, Throat Exam: normal ENT inspection, TMs normal, pharynx normal, moist mucous membranes Neck Exam: normal inspection, non-tender, supple, full range of motion Respiratory Exam: normal breath sounds, lungs clear, No respiratory distress Cardiovascular Exam: regular rate/rhythm, normal heart sounds, normal peripheral pulses Gastrointestinal/Abdomen Exam: soft, normal bowel sounds, No tenderness, No mass Back Exam: normal inspection, normal range of motion, No CVA tenderness, No vertebral tenderness Extremity Exam: normal inspection, normal range of motion, pelvis stable Skin Exam: normal color, warm, dry, No rash Lymphatic Exam: No adenopathy Results - Labs Lab/Micro Results: Lab Results-Last 24 Hours 09/05/20 09/05/20 09/05/20 Range/Units 04:45 05:00 05:00 WBC 12.6 H (4.0-10.5) K/mm3 RBC 4.25 (4.1-5.4) M/mm3 Hgb 10.8 L (12.0-16.0) gm/dl Hct 35.6 (35-47) % MCV 83.8 (78-100) fl MCH 25.4 L (26-32) pg MCHC 30.3 L (32-36) g/dl RDW 17.9 H (11.5-14.0) % Plt Count 389 (150-450) K/mm3 MPV 8.9 (7.5-11.0) fl Segmented Neutrophils 49 (36.0-66.0) % Band Neutrophils 2 (0.0-2.0) % Lymphocytes (Manual) 42 (24-44) % Monocytes (Manual) 5 (0.0-12.0) % Eosinophils (Manual) 2 (0.00-3.0) % Platelet Estimate NORMAL (NORMAL) RBC Morphology NORMAL Polychromasia 1+ PT (9.95-12.35) SECONDS INR (0.8-3.0) APTT (25.3-37.0) SECONDS Sodium 135 L (137-145) mmol/L Potassium 3.6 (3.5-5.1) mmol/L Chloride 96 L (98-107) mmol/L Carbon Dioxide 29 (22-30) mmol/L Anion Gap 13.6 (5-15) MEQ/L BUN 32 H (7-17) mg/dL Creatinine 1.31 H (0.52-1.04) mg/dL Estimated GFR 41.4 ML/MIN Glucose 133 H (74-106) mg/dL POC Glucometer (74 to 106) mg/dL Hemoglobin A1c 5.80 (4.5-6.0) % Lactic Acid (0.4-2.0) Calcium 9.5 (8.4-10.2) mg/dL Total Bilirubin 0.30 (0.2-1.3) mg/dL AST 26 (14-36) U/L ALT 10 (0-35) U/L Alkaline Phosphatase 138 H (38-126) U/L Troponin I (0.000-0.034) ng/mL NT-Pro-B Natriuret Pep 550 (0-1800) pg/mL Serum Total Protein 7.6 (6.3-8.2) g/dL Albumin 3.7 (3.5-5.0) g/dL Urine Color (YELLOW) Urine Appearance (CLEAR) Urine pH (5-6) Ur Specific [place] (1.005-1.025) Urine Protein (Negative) Urine Ketones (NEGATIVE) Urine Blood (0-5) Quentin/ul Urine Nitrite (NEGATIVE) Urine Bilirubin (NEGATIVE) Urine Urobilinogen (0-1) mg/dL Ur Leukocyte Esterase (NEGATIVE) Urine WBC (Auto) (0-5) /HPF Urine RBC (Auto) (0-2) /HPF U Epithel Cells (Auto) (FEW) /HPF Urine Bacteria (Auto) (NEGATIVE) /HPF Other Casts (Auto) (NEGATIVE) /LPF Urine Mucus (Auto) (NEGATIVE) /HPF Urine Yeast (Budding) (NEGATIVE) /HPF Urine Culture Reflexed (NO) Urine Glucose (NEGATIVE) mg/dL 09/05/20 09/05/20 09/05/20 Range/Units 05:00 05:00 05:35 WBC (4.0-10.5) K/mm3 RBC (4.1-5.4) M/mm3 Hgb (12.0-16.0) gm/dl Hct (35-47) % MCV (78-100) fl MCH (26-32) pg MCHC (32-36) g/dl RDW (11.5-14.0) % Plt Count (150-450) K/mm3 MPV (7.5-11.0) fl Segmented Neutrophils (36.0-66.0) % Band Neutrophils (0.0-2.0) % Lymphocytes (Manual) (24-44) % Monocytes (Manual) (0.0-12.0) % Eosinophils (Manual) (0.00-3.0) % Platelet Estimate (NORMAL) RBC Morphology Polychromasia PT 14.7 H (9.95-12.35) SECONDS INR 1.30 (0.8-3.0) APTT 37.2 H (25.3-37.0) SECONDS Sodium (137-145) mmol/L Potassium (3.5-5.1) mmol/L Chloride (98-107) mmol/L Carbon Dioxide (22-30) mmol/L Anion Gap (5-15) MEQ/L BUN (7-17) mg/dL Creatinine (0.52-1.04) mg/dL Estimated GFR ML/MIN Glucose (74-106) mg/dL POC Glucometer (74 to 106) mg/dL Hemoglobin A1c (4.5-6.0) % Lactic Acid 4.1 H (0.4-2.0) Calcium (8.4-10.2) mg/dL Total Bilirubin (0.2-1.3) mg/dL AST (14-36) U/L ALT (0-35) U/L Alkaline Phosphatase (38-126) U/L Troponin I < 0.012 (0.000-0.034) ng/mL NT-Pro-B Natriuret Pep (0-1800) pg/mL Serum Total Protein (6.3-8.2) g/dL Albumin (3.5-5.0) g/dL Urine Color (YELLOW) Urine Appearance (CLEAR) Urine pH (5-6) Ur Specific [place] (1.005-1.025) Urine Protein (Negative) Urine Ketones (NEGATIVE) Urine Blood (0-5) Quentin/ul Urine Nitrite (NEGATIVE) Urine Bilirubin (NEGATIVE) Urine Urobilinogen (0-1) mg/dL Ur Leukocyte Esterase (NEGATIVE) Urine WBC (Auto) (0-5) /HPF Urine RBC (Auto) (0-2) /HPF U Epithel Cells (Auto) (FEW) /HPF Urine Bacteria (Auto) (NEGATIVE) /HPF Other Casts (Auto) (NEGATIVE) /LPF Urine Mucus (Auto) (NEGATIVE) /HPF Urine Yeast (Budding) (NEGATIVE) /HPF Urine Culture Reflexed (NO) Urine Glucose (NEGATIVE) mg/dL 09/05/20 09/05/20 09/05/20 Range/Units 09:22 11:51 Unknown WBC (4.0-10.5) K/mm3 RBC (4.1-5.4) M/mm3 Hgb (12.0-16.0) gm/dl Hct (35-47) % MCV (78-100) fl MCH (26-32) pg MCHC (32-36) g/dl RDW (11.5-14.0) % Plt Count (150-450) K/mm3 MPV (7.5-11.0) fl Segmented Neutrophils (36.0-66.0) % Band Neutrophils (0.0-2.0) % Lymphocytes (Manual) (24-44) % Monocytes (Manual) (0.0-12.0) % Eosinophils (Manual) (0.00-3.0) % Platelet Estimate (NORMAL) RBC Morphology Polychromasia PT (9.95-12.35) SECONDS INR (0.8-3.0) APTT (25.3-37.0) SECONDS Sodium (137-145) mmol/L Potassium (3.5-5.1) mmol/L Chloride (98-107) mmol/L Carbon Dioxide (22-30) mmol/L Anion Gap (5-15) MEQ/L BUN (7-17) mg/dL Creatinine (0.52-1.04) mg/dL Estimated GFR ML/MIN Glucose (74-106) mg/dL POC Glucometer 104 (74 to 106) mg/dL Hemoglobin A1c (4.5-6.0) % Lactic Acid 2.0 (0.4-2.0) Calcium (8.4-10.2) mg/dL Total Bilirubin (0.2-1.3) mg/dL AST (14-36) U/L ALT (0-35) U/L Alkaline Phosphatase (38-126) U/L Troponin I (0.000-0.034) ng/mL NT-Pro-B Natriuret Pep (0-1800) pg/mL Serum Total Protein (6.3-8.2) g/dL Albumin (3.5-5.0) g/dL Urine Color DARK YELLOW (YELLOW) Urine Appearance TURBID (CLEAR) Urine pH 5.0 (5-6) Ur Specific [place] 1.013 (1.005-1.025) Urine Protein 30 (Negative) Urine Ketones NEGATIVE (NEGATIVE) Urine Blood MODERATE (0-5) Quentin/ul Urine Nitrite NEGATIVE (NEGATIVE) Urine Bilirubin NEGATIVE (NEGATIVE) Urine Urobilinogen NEGATIVE (0-1) mg/dL Ur Leukocyte Esterase LARGE (NEGATIVE) Urine WBC (Auto) >100 (0-5) /HPF Urine RBC (Auto) 16-25 (0-2) /HPF U Epithel Cells (Auto) NONE (FEW) /HPF Urine Bacteria (Auto) MANY (NEGATIVE) /HPF Other Casts (Auto) 25-50 (NEGATIVE) /LPF Urine Mucus (Auto) SLIGHT (NEGATIVE) /HPF Urine Yeast (Budding) Rare (NEGATIVE) /HPF Urine Culture Reflexed ORDERED SEPARATELY (NO) Urine Glucose NEGATIVE (NEGATIVE) mg/dL Accuchecks Date 09/05/20 Time 11:30 - Radiology Impressions Radiology Exams & Impressions: Radiology Procedures Category Date Time Status ABDOMEN AND PELVIS W/0 CONTRAS [CT] Stat Exams 09/05/20 05:16 Completed CHEST WITHOUT CONTRAST [CT] Stat Exams 09/05/20 05:14 Completed Assessment/Plan (1) UTI (urinary tract infection) Current Visit: Yes Status: Acute Qualifiers: Urinary tract infection type: acute pyelonephritis Qualified Code(s): N10 - Acute pyelonephritis Assessment & Plan: Chief Complaint Diagnosis weakness, for 2-3 days Allergies Allergy/AdvReac Type Severity Reaction Status Date / Time ofloxacin [From Floxin] Allergy Verified 09/05/20 04:35 Sulfa (Sulfonamide Allergy Verified 09/05/20 04:35 Antibiotics) [Sulfa(Sulfonamide Antibiotics)] Vital Signs (Last 24 hours) Temp Pulse Resp BP Pulse Ox 09/05/20 12:00 98.1 F 75 18 129/66 95 09/05/20 09:02 96.8 F 88 18 133/65 97 09/05/20 06:57 98 09/05/20 06:01 94 H 18 136/70 97 09/05/20 04:20 97.7 F 109 H 20 151/94 98 Home Medications Medication Instructions Recorded Confirmed Last Taken Type Diclofenac Sodium Gel [Voltaren 1 gm TOP TID PRN 09/05/20 09/05/20 Unknown History GEL] Metoprolol Succinate 25 mg PO DAILY 09/05/20 09/05/20 09/04/20 History Tamsulosin HCl 0.4 mg [Flomax 0.4 mg PO HS 09/05/20 09/05/20 09/04/20 History 0.4 MG] Current Medications Generic Name Dose Route Start Last Admin Trade Name Freq PRN Reason Stop Dose Admin Hydrocodone Bitart/Acetaminophen 1 tab 09/05/20 14:10 [place] 5/325 Mg PO 09/10/20 14:09 Q6HPRN PRN PAIN Allopurinol 300 mg 09/05/20 15:00 Zyloprim 300 Mg PO 10/05/20 14:59 DAILY NKECHI Apixaban 2.5 mg 09/05/20 22:00 Eliquis 2.5 Mg Tablet PO 10/05/20 21:59 BID NKECHI Bumetanide 1 mg 09/05/20 15:00 Bumex 1 Mg PO 10/05/20 14:59 TID NKECHI Diclofenac Sodium 1 gm 09/05/20 14:15 Voltaren Gel TOP 10/05/20 14:14 TID PRN PRN Hydromorphone HCl 0.5 mg 09/05/20 06:52 09/05/20 08:05 Hydromorphone 1 Mg/Ml Injection IV 09/10/20 06:51 0.5 mg Q4H PRN PRN Administration PAIN Sodium Chloride 1,000 mls @ 80 mls/hr 09/05/20 07:00 09/05/20 07:00 Sodium Chloride 0.9% 1000 Ml IV 10/05/20 06:59 80 mls/hr .[id number] NKECHI Administration Ceftriaxone Sodium/Dextrose 1 g in 50 mls @ 100 mls/hr 09/05/20 10:00 09/05/20 11:01 Rocephin 1 Gm-D5w 50 Ml Bag IV 10/05/20 09:59 100 mls/hr Q24H10 NKECHI Administration Insulin Human Regular 0 unit 09/05/20 06:52 Humulin R SQ 10/05/20 06:51 UD PRN HYPERGLYCEMIA Levothyroxine Sodium 125 mcg 09/05/20 15:00 Synthroid 125 Mcg PO 10/05/20 14:59 DAILY NKECHI Magnesium Oxide 400 mg 09/05/20 22:00 Mag-Ox 400 PO 10/05/20 21:59 BID NKECHI Metformin HCl 500 mg 09/05/20 17:00 Glucophage 500 Mg PO 10/05/20 16:59 BIDWM NKECHI Metolazone 2.5 mg 09/05/20 15:00 Zaroxolyn 2.5 Mg PO 10/05/20 14:59 DAILY NKECHI Metronidazole 500 mg 09/05/20 15:00 Flagyl 500 Mg PO 10/05/20 14:59 TID NKECHI Nitroglycerin 0.4 mg 09/05/20 14:03 Nitrostat 0.4 Mg Tablet SL 10/05/20 14:02 Q5MIN PRN MR X 3 PRN CHEST PAIN Non-Formulary Medication 25 mg 09/06/20 10:00 Metoprolol Succinate PO 10/06/20 09:59 DAILY NKECHI Non-Formulary Medication 1 each 09/06/20 10:00 Vitamin B Complex [Super B-50 Complex] PO 10/06/20 09:59 DAILY NKECHI Ondansetron HCl 4 mg 09/05/20 06:52 Zofran 4 Mg/2 Ml Vial IV 10/05/20 06:51 Q6H PRN PRN NAUSEA/VOMITING Pantoprazole Sodium 40 mg 09/05/20 22:00 Protonix 40mg Tablet PO 10/05/20 21:59 HS NKECHI Potassium Chloride 30 meq 09/05/20 22:00 Klor Con 10 Meq PO 10/05/20 21:59 BID NKECHI Tamsulosin HCl 0.4 mg 09/05/20 22:00 Flomax 0.4 Mg PO 10/05/20 21:59 HS NKECHI Discontinued Medications Generic Name Dose Route Start Last Admin Trade Name Freq PRN Reason Stop Dose Admin Sodium Chloride 1,000 mls @ 999 mls/hr 09/05/20 05:09 09/05/20 06:03 Sodium Chloride 0.9% 1000 Ml IV 09/05/20 06:09 Not Given .Q1H1M STA Sodium Chloride Confirm 09/05/20 05:23 Sodium Chloride 0.9% 1000 Ml Administered 09/05/20 05:24 Dose 1,000 mls @ ud .ROUTE .STK-MED ONE Ondansetron HCl 4 mg 09/05/20 05:09 09/05/20 05:28 Zofran 4 Mg/2 Ml Vial IV 09/05/20 05:10 4 mg STAT ONE Administration Ondansetron HCl Confirm 09/05/20 05:23 Zofran 4 Mg/2 Ml Vial Administered 09/05/20 05:24 Dose 4 mg .ROUTE .STK-MED ONE Intake & Output (Last 24 hours) 09/03/20 09/04/20 09/05/20 09/06/20 11:59 11:59 11:59 11:59 Intake Total 240 Output Total 200 300 Balance -200 -60 Weight 73.3 kg Microbiology Results (Last 24 hours) 09/05/20 07:01 Blood Blood Culture Gram Stain - Pending 09/05/20 07:01 Blood Blood Culture - Pending 09/05/20 07:13 Blood Blood Culture Gram Stain - Pending 09/05/20 07:13 Blood Blood Culture - Pending 09/05/20 Unknown Catherized Urine Culture - Pending Laboratory Results (Last 24 hours) 09/05/20 09/05/20 09/05/20 Unknown 11:51 09:22 WBC RBC Hgb Hct MCV MCH MCHC RDW Plt Count MPV Segmented Neutrophils Band Neutrophils Lymphocytes (Manual) Monocytes (Manual) Eosinophils (Manual) Platelet Estimate RBC Morphology Polychromasia PT INR APTT Sodium Potassium Chloride Carbon Dioxide Anion Gap BUN Creatinine Estimated GFR Glucose POC Glucometer 104 Hemoglobin A1c Lactic Acid 2.0 Calcium Total Bilirubin AST ALT Alkaline Phosphatase Troponin I NT-Pro-B Natriuret Pep Serum Total Protein Albumin Urine Color DARK YELLOW Urine Appearance TURBID Urine pH 5.0 Ur Specific [place] 1.013 Urine Protein 30 Urine Ketones NEGATIVE Urine Blood MODERATE Urine Nitrite NEGATIVE Urine Bilirubin NEGATIVE Urine Urobilinogen NEGATIVE Ur Leukocyte Esterase LARGE Urine WBC (Auto) >100 Urine RBC (Auto) 16-25 U Epithel Cells (Auto) NONE Urine Bacteria (Auto) MANY Other Casts (Auto) 25-50 Urine Mucus (Auto) SLIGHT Urine Yeast (Budding) Rare Urine Culture Reflexed ORDERED SEPARATELY Urine Glucose NEGATIVE 09/05/20 09/05/20 09/05/20 05:35 05:00 05:00 WBC RBC Hgb Hct MCV MCH MCHC RDW Plt Count MPV Segmented Neutrophils Band Neutrophils Lymphocytes (Manual) Monocytes (Manual) Eosinophils (Manual) Platelet Estimate RBC Morphology Polychromasia PT 14.7 H INR 1.30 APTT 37.2 H Sodium Potassium Chloride Carbon Dioxide Anion Gap BUN Creatinine Estimated GFR Glucose POC Glucometer Hemoglobin A1c Lactic Acid 4.1 H Calcium Total Bilirubin AST ALT Alkaline Phosphatase Troponin I < 0.012 NT-Pro-B Natriuret Pep Serum Total Protein Albumin Urine Color Urine Appearance Urine pH Ur Specific [place] Urine Protein Urine Ketones Urine Blood Urine Nitrite Urine Bilirubin Urine Urobilinogen Ur Leukocyte Esterase Urine WBC (Auto) Urine RBC (Auto) U Epithel Cells (Auto) Urine Bacteria (Auto) Other Casts (Auto) Urine Mucus (Auto) Urine Yeast (Budding) Urine Culture Reflexed Urine Glucose 09/05/20 09/05/20 09/05/20 05:00 05:00 04:45 WBC 12.6 H RBC 4.25 Hgb 10.8 L Hct 35.6 MCV 83.8 MCH 25.4 L MCHC 30.3 L RDW 17.9 H Plt Count 389 MPV 8.9 Segmented Neutrophils 49 Band Neutrophils 2 Lymphocytes (Manual) 42 Monocytes (Manual) 5 Eosinophils (Manual) 2 Platelet Estimate NORMAL RBC Morphology NORMAL Polychromasia 1+ PT INR APTT Sodium 135 L Potassium 3.6 Chloride 96 L Carbon Dioxide 29 Anion Gap 13.6 BUN 32 H Creatinine 1.31 H Estimated GFR 41.4 Glucose 133 H POC Glucometer Hemoglobin A1c 5.80 Lactic Acid Calcium 9.5 Total Bilirubin 0.30 AST 26 ALT 10 Alkaline Phosphatase 138 H Troponin I NT-Pro-B Natriuret Pep 550 Serum Total Protein 7.6 Albumin 3.7 Urine Color Urine Appearance Urine pH Ur Specific [place] Urine Protein Urine Ketones Urine Blood Urine Nitrite Urine Bilirubin Urine Urobilinogen Ur Leukocyte Esterase Urine WBC (Auto) Urine RBC (Auto) U Epithel Cells (Auto) Urine Bacteria (Auto) Other Casts (Auto) Urine Mucus (Auto) Urine Yeast (Budding) Urine Culture Reflexed Urine Glucose Orders (Last 24 hours) Category Date Time Status Bedrest ROUTINE Activity 09/05/20 06:53 Active EKG-ER Only STAT Care 09/05/20 04:52 Completed IV Care Q6H Care 09/05/20 06:53 Active Isolation, Initiate & Maintain Q12H Care 09/05/20 07:53 Active POCT Glucose Check ACHS Care 09/05/20 10:[address] in Observation ROUTINE Care 09/05/20 06:53 Active Vital Signs Q4H Care 09/05/20 06:52 Completed Cardboard Cutter/Discharge Plan ROUTINE Cons 09/05/20 10:29 Active Heart-Healthy Diet Diet 09/05/20 Breakfast Active Nutritional Admission Screen ONCE Diet 09/05/20 10:29 Completed ABDOMEN AND PELVIS W/0 CONTRAS [CT] Stat Exams 09/05/20 05:16 Completed CHEST WITHOUT CONTRAST [CT] Stat Exams 09/05/20 05:14 Completed BLOOD CULTURE Stat Lab 09/05/20 07:01 Received CBC W DIFF Stat Lab 09/05/20 05:00 Completed CMP Stat Lab 09/05/20 05:00 Completed CULTURE,URINE Stat Lab 09/05/20 Received HEMOGLOBIN A1C Urgent Lab 09/05/20 04:45 Completed Lactic Acid Routine Lab 09/05/20 09:22 Completed Lactic Acid Stat Lab 09/05/20 05:35 Completed Manual Differential NC Stat Lab 09/05/20 05:00 Completed NT PRO BNP Stat Lab 09/05/20 05:00 Completed POCT GLUCOSE Stat Lab 09/05/20 11:51 Completed PROTIME WITH INR Stat Lab 09/05/20 05:00 Completed PTT Stat Lab 09/05/20 05:00 Completed TROPONIN Q3H Lab 09/05/20 05:00 Completed UA W/RFX UR CULTURE Stat Lab 09/05/20 Completed Allopurinol 300 mg [Zyloprim 300 mg] Med 09/05/20 15:00 Active 300 mg PO DAILY Apixaban [Eliquis 2.5 mg Tablet] Med 09/05/20 22:00 Active 2.5 mg PO BID Bumetanide 1 mg [Bumex 1 mg] Med 09/05/20 15:00 Active 1 mg PO TID Ceftriaxone 1 GM/50 ML PREMIX* [ROCEPHIN 1 Gm-D5w 50 ml Med 09/05/20 10:00 Active Bag] 1 g in 50 ml IV Q24H10 Diclofenac Sodium Gel [Voltaren GEL] Med 09/05/20 14:15 Active 1 gm TOP TID PRN PRN Hydrocodone/APAP 5/325 [[place] 5/325 mg] Med 09/05/20 14:10 Active 1 tab PO Q6HPRN PRN Hydromorphone 1 mg/1Ml Inj [Hydromorphone 1 mg/ml Med 09/05/20 06:52 Active Injection] 0.5 mg IV Q4H PRN PRN Insulin Regular, Human [Humulin R] Med 09/05/20 06:52 Active See Dose Instructions SQ UD PRN Levothyroxine Sodium 125 Mcg [Synthroid 125 Mcg] Med 09/05/20 15:00 Active 125 mcg PO DAILY Magnesium Oxide 400 mg [Mag-Ox 400] Med 09/05/20 22:00 Active 400 mg PO BID Metformin HCl 500 mg [Glucophage 500 MG] Med 09/05/20 17:00 Active 500 mg PO BIDWM Metolazone 2.5 mg [Zaroxolyn 2.5 MG] Med 09/05/20 15:00 Active 2.5 mg PO DAILY Metoprolol Succinate Med 09/06/20 10:00 Ordered 25 mg PO DAILY Metronidazole 500 mg [Flagyl 500 MG] Med 09/05/20 15:00 Active 500 mg PO TID NaCl 0.9% 1000 ml [Sodium Chloride 0.9% 1000 ML] 1,000 Med 09/05/20 05:23 Discontinued ml .ROUTE UD NaCl 0.9% 1000 ml [Sodium Chloride 0.9% 1000 ML] 1,000 Med 09/05/20 07:00 Active ml IV 80 mls/hr NaCl 0.9% 1000 ml [Sodium Chloride 0.9% 1000 ML] 1,000 Med 09/05/20 05:09 Discontinued ml IV 999 mls/hr Nitroglycerin 0.4 mg Tablet [Nitrostat 0.4 MG Tablet Med 09/05/20 14:03 Active ] 0.4 mg SL Q5MIN PRN MR X 3 PRN Ondansetron HCl 4 mg/2 ml [Zofran 4 MG/2 ML VIAL] Med 09/05/20 05:23 Discontinued 4 mg .ROUTE .STK-MED ONE Ondansetron HCl 4 mg/2 ml [Zofran 4 MG/2 ML VIAL] Med 09/05/20 06:52 Active 4 mg IV Q6H PRN PRN Ondansetron HCl 4 mg/2 ml [Zofran 4 MG/2 ML VIAL] Med 09/05/20 05:09 Discontinued 4 mg IV STAT ONE PANTOPRAZOLE 40 mg Tablet [Protonix 40MG Tablet] Med 09/05/20 22:00 Active 40 mg PO HS Potassium Chloride 10 Meq Tab* [Klor Con 10 MEQ] Med 09/05/20 22:00 Active 30 meq PO BID Tamsulosin HCl 0.4 mg [Flomax 0.4 MG] Med 09/05/20 22:00 Active 0.4 mg PO HS Vitamin B Complex [Super B-50 Complex] Med 09/06/20 10:00 Ordered 1 each PO DAILY OT Screen per Nursing Assess ONCE OT 09/05/20 10:29 Completed PT Eval & Treat (MD Order) ONCE PT 09/05/20 10:54 Completed PT Screen per Nursing Assess ONCE PT 09/05/20 10:29 Completed Oxygen Nasal Cannula 2 lpm RT 09/05/20 06:52 Completed Transfer Order Routine Transfer 09/05/20 Completed Code(s): N39.0 - URINARY TRACT INFECTION, SITE NOT SPECIFIED (2) Atrial fibrillation Current Visit: Yes Status: Chronic Qualifiers: Atrial fibrillation type: paroxysmal Qualified Code(s): I48.0 - Paroxysmal atrial fibrillation Code(s): I48.91 - UNSPECIFIED ATRIAL FIBRILLATION
[2020-09-05] MEDS ORDERED: SYNTHROID 25 MCG PO SCH (15:00)
[2020-09-05] MEDS: SYNTHROID 100 MCG PO SCH (15:11)
[2020-09-05] MEDS: BUMEX 1 MG PO SCH ×2 (15:11→21:32)
[2020-09-05] MEDS: Flagyl 500 MG PO SCH ×2 (15:11→21:32)
[2020-09-05] MEDS: SYNTHROID 125 MCG PO SCH (15:12)
[2020-09-05] MEDS: Toprol-Xl 25MG Tablets PO SCH (15:12)
[2020-09-05] MEDS: Zaroxolyn 2.5 MG PO SCH (15:12)
[2020-09-05] MEDS: ZYLOPRIM 300 MG PO SCH (15:12)
[2020-09-05] MEDS: NORCO 5/325 MG PO PRN (15:18)
[2020-09-05] MEDS: VITA-BEE WITH C PO SCH (17:12)
[2020-09-05] MEDS: Glucophage 500 MG PO SCH (17:12)
[2020-09-05] MEDS: Voltaren GEL TOP PRN (17:37)
[2020-09-05] MEDS: Klor Con 10 MEQ PO SCH (21:32)
[2020-09-05] MEDS: Flomax 0.4 MG PO SCH (21:32)
[2020-09-05] MEDS: ELIQUIS 2.5 MG TABLET PO SCH (21:32)
[2020-09-05] MEDS: Protonix 40MG Tablet PO SCH (21:33)
[2020-09-05] MEDS: MAG-OX 400 PO SCH (21:33)
[2020-09-05] MEDS: PATIENT OWN MEDICATION IH PRN (22:40)
[2020-09-06] MEDS: Sodium Chloride 0.9% 1000 ML 1,000 ML IV SCH (05:00)
[2020-09-06] MEDS: PATIENT OWN MEDICATION IH PRN (07:00)
[2020-09-06] MEDS: PATIENT OWN MEDICATION IH SCH ×5 (07:00→22:02)
[2020-09-06] MEDS: Glucophage 500 MG PO SCH ×2 (07:32→17:13)
--- NOTE | 2020-09-06 09:16 | PCM.NOTE ---
Date and Time: 09/06/20 0915 Subjective Assessment: doing ok - Review of Systems Constitutional: No Fever, No Chills Eyes: No Symptoms Ears, Nose, & Throat: No Symptoms Respiratory: No Cough, No Short Of Breath Cardiac: No Chest Pain, No Edema, No Syncope Abdominal/Gastrointestinal: No Abdominal Pain, No Nausea, No Vomiting, No Diarrhea Genitourinary Symptoms: No Dysuria Musculoskeletal: No Back Pain, No Neck Pain Skin: Decubiti, No Rash Neurological: No Dizziness, No Focal Weakness, No Sensory Changes Psychological: No Symptoms Endocrine: No Symptoms Hematologic/Lymphatic: No Symptoms Immunological/Allergic: No Symptoms Objective Exam Wound Assessment: Skin/Wound Assessment Wound/Incision Assessment Start: 09/05/20 10:29 Text: Status: Active Freq: Q6H Protocol: Document 09/06/20 07:56 MJ (Rec: 09/06/20 08:05 MJ [id number]) Wound/Incision Assessment Right Upper Buttock Wound Assessment Shift Assessment Wound Type Pressure Ulcer Wound Stage Stage III Drainage Amount None Drainage Odor None/Absent General Appearance Unapproximated Length (cm) (cm) 2 Width (cm) (cm) 3 Wound Bed Greatest Portion Red (Granulation) Surrounding Tissue Dark Red Primary Dressing mepilex dressing applied Comment wound care per PT. dressing cdi Right Posterior Buttock Wound Assessment Admission Wound Type Pressure Ulcer Wound Stage Stage III Drainage Amount None Drainage Odor None/Absent General Appearance Unapproximated Length (cm) (cm) 4 Width (cm) (cm) 4 Wound Bed Greatest Portion Red (Granulation) Surrounding Tissue Dark Red Primary Dressing mepilex dressing applied Comment wound care per PT. dressing cdi Left Posterior Buttock Wound Assessment Admission Wound Type Pressure Ulcer Wound Stage Stage III Drainage Amount None Drainage Odor None/Absent General Appearance Unapproximated Length (cm) (cm) 8 Width (cm) (cm) 4 Wound Bed Greatest Portion Red (Granulation) Surrounding Tissue Dark Red Primary Dressing mepilex applied Comment wound care per PT. dressing cdi Wound Photo Photo Taken Yes Date: 09/05/20 Time: 08:30 OBJECTIVE DATA Vital Signs: Vital Signs - 24 hr Temp Pulse Resp BP Pulse Ox 09/06/20 07:09 82 16 94 L 09/06/20 06:58 98.3 F 82 16 141/73 94 L 09/06/20 04:00 98.1 F 79 22 144/67 95 09/06/20 00:00 98.7 F 91 H 24 133/61 95 09/05/20 21:00 70 20 97 09/05/20 20:00 97.8 F 80 20 126/60 96 09/05/20 16:00 99.1 F 107 H 18 144/77 97 09/05/20 12:00 98.1 F 75 18 129/66 95 Pain Assessment - Last Documented Pain Intensity 4 Pain Scale Used 0-10 Pain Scale Intake and Output: Intake & Output 09/03/20 09/04/20 09/05/20 09/06/20 11:59 11:59 11:59 11:59 Intake Total 3418 Output Total 200 4100 Balance -200 -682 Weight 73.3 kg Lab Results: Lab Results-Last 24 Hours 09/05/20 09/05/20 09/05/20 Range/Units 04:45 09:22 11:51 POC Glucometer 104 (74 to 106) mg/dL Hemoglobin A1c 5.80 (4.5-6.0) % Lactic Acid 2.0 (0.4-2.0) 09/05/20 09/05/20 09/06/20 Range/Units 16:26 21:43 06:44 POC Glucometer 136 H 129 H 126 H (74 to 106) mg/dL Hemoglobin A1c (4.5-6.0) % Lactic Acid (0.4-2.0) Radiology Exams: Radiology Procedures Category Date Time Status ABDOMEN AND PELVIS W/0 CONTRAS [CT] Stat Exams 09/05/20 05:16 Completed CHEST WITHOUT CONTRAST [CT] Stat Exams 09/05/20 05:14 Completed Multi-Disciplinary Progress Notes: Multi-Disciplinary Progress Notes 09/05/20 15:15 Case Management Note by Ginette Hardin DISCUSSION WITH PT'S DAUGHTER. REPORTS THAT HER HOME IS COMPLETELY HANDICAPPED ACCESSIBLE. PT HAS A WHEELCHAIR, A WALK-IN SHOWER WITH A SHOWER CHAIR, AND A RISER FOR THE TOILET. REPORTS THAT NORMALLY PT IS COMPLETELY INDEPENDENT, BUT SHE DOES ASSIST IN CARE WHEN HER MOTHER REQUESTS. REPORTS THAT OF LATE SHE HAS HAD SO MUCH BACK PAIN THAT IT IS PREVENTING HER FROM BEING ACTIVE. ALSO, REPORTS THAT HER MOTHER DOES NOT GO OUT LIKE SHE ONCE DID, BECAUSE SHE IS SCARED OF GETTING JUNIOR VIRUS. REPORTS THAT SHE FEELS THAT THIS HAS ALSO DECREASED HER ACTIVITY. DID DISCUSS HHC SERVICES AN OPTION FOR [facility] SUPPORT ON DISCHARGE. DAUGHTER REPORTS THAT PT HAS HAD HHC IN THE PAST AND DID NOT CARE FOR THEM COMING TO THE HOUSE, BUT SHE WILL TALK WITH HER ABOUT IT. ALSO, REPORTS THAT GOING TO A [facility] IS OUT OF THE QUESTION, REPORTS THAT HER MOTHER IS SCARED TO BE "STUCK IN A [facility]" WITH OUT ANY FAMILY TO VISIT. DAUGHTER REPORTS THAT THEY NORMALLY GET ALONG WELL AT HOME AND THEIR PLAN IS TO RETURN HOME. DISCUSSED HHC SERVICES FOR CONTINUED P.T. AND WOUND CARE AT HOME. DAUGHTER REPORTS THAT PT HAS A LEAKY BLADDER AND DOESN'T ALWAYS KNOW WHEN SHE IS WET, AND FEELS THAT THIS HAS CONTRIBUTED TO HER WOUNDS. ALSO, DISCUSSED GETTING HER ON A "TOILETING SCHEDULE" - TO ENSURE SHE IS DRY. DAUGHTER WANTS TO TALK WITH FAMILY BEFORE THEY DECIDE ON HHC SERVICES. SHE WILL LET US KNOW. Initialized on 09/05/20 15:15 - END OF NOTE 09/05/20 14:03 (created 09/05/20 15:26) Case Management Note by Ginette Hardin DR. ROUNDED AND EVALUATED, DISCUSSED PLAN OF CARE WITH PT. ALL QUESTIONS ANSWERED BY DR. MINAYA AND PT VERBALIZED UNDERSTANDING. Initialized on 09/05/20 15:26 - END OF NOTE Assessment/Plan (1) UTI (urinary tract infection) Current Visit: Yes Status: Acute Qualifiers: Urinary tract infection type: acute pyelonephritis Qualified Code(s): N10 - Acute pyelonephritis Code(s): N39.0 - URINARY TRACT INFECTION, SITE NOT SPECIFIED (2) Atrial fibrillation Current Visit: Yes Status: Chronic Qualifiers: Atrial fibrillation type: paroxysmal Qualified Code(s): I48.0 - Paroxysmal atrial fibrillation Code(s): I48.91 - UNSPECIFIED ATRIAL FIBRILLATION (3) Decubitus ulcer of back, stage 2 Current Visit: Yes Status: Acute Code(s): L89.102 - PRESSURE ULCER OF UNSPECIFIED PART OF BACK, STAGE 2
[2020-09-06] MEDS ORDERED: VITAMIN B COMPLEX PO SCH (10:00)
[2020-09-06] MEDS ORDERED: NON-FORMULARY ITEM (Levothyroxine Sodium [Synthroid] 200 MCG) PO SCH (10:00)
[2020-09-06] MEDS ORDERED: NON-FORMULARY ITEM (Metoprolol Succinate 25 MG) PO SCH (10:00)
[2020-09-06] MEDS: MAG-OX 400 PO SCH ×2 (10:51→22:30)
[2020-09-06] MEDS: ROCEPHIN 1 Gm-D5w 50 ml Bag** 1 G/50 ML IVPB IV SCH (10:51)
[2020-09-06] MEDS: BUMEX 1 MG PO SCH ×3 (10:51→22:31)
[2020-09-06] MEDS: SYNTHROID 100 MCG PO SCH (10:51)
[2020-09-06] MEDS: Toprol-Xl 25MG Tablets PO SCH (10:52)
[2020-09-06] MEDS: SYNTHROID 125 MCG PO SCH (10:52)
[2020-09-06] MEDS: ELIQUIS 2.5 MG TABLET PO SCH ×2 (10:52→22:31)
[2020-09-06] MEDS: VITA-BEE WITH C PO SCH (10:52)
[2020-09-06] MEDS: ZYLOPRIM 300 MG PO SCH (10:52)
[2020-09-06] MEDS: Zaroxolyn 2.5 MG PO SCH (10:52)
[2020-09-06] MEDS: Flagyl 500 MG PO SCH ×3 (10:52→22:31)
[2020-09-06] MEDS: Klor Con 10 MEQ PO SCH ×2 (10:52→22:31)
[2020-09-06] MEDS: Voltaren GEL TOP PRN (10:53)
[2020-09-06] MEDS ORDERED: VENOFER IV ONE (11:30)
[2020-09-06] MEDS ORDERED: D5W MINI IV ONE (11:30)
[2020-09-06] MEDS: NYSTOP POWDER 15 GM TP SCH ×2 (12:08→22:31)
[2020-09-06] MEDS: Protonix 40MG Tablet PO SCH (22:30)
[2020-09-06] MEDS: Flomax 0.4 MG PO SCH (22:31)
[2020-09-07] MEDS: PATIENT OWN MEDICATION IH SCH ×4 (07:07→19:38)
[2020-09-07] MEDS: Glucophage 500 MG PO SCH ×2 (08:35→17:18)
[2020-09-07] MEDS ORDERED: Rocephin 1000 MG INJ IM SCH (10:00)
[2020-09-07] MEDS ORDERED: XYLOCAINE 1% HCL 20 ML MDV IJ ONE (10:02)
[2020-09-07] MEDS: NYSTOP POWDER 15 GM TP SCH ×2 (10:11→22:02)
[2020-09-07] MEDS: Klor Con 10 MEQ PO SCH ×2 (10:16→22:02)
[2020-09-07] MEDS: ZYLOPRIM 300 MG PO SCH (10:16)
[2020-09-07] MEDS: Flagyl 500 MG PO SCH ×3 (10:16→22:02)
[2020-09-07] MEDS: SYNTHROID 100 MCG PO SCH (10:16)
[2020-09-07] MEDS: Zaroxolyn 2.5 MG PO SCH (10:17)
[2020-09-07] MEDS: ELIQUIS 2.5 MG TABLET PO SCH ×2 (10:17→22:02)
[2020-09-07] MEDS: MAG-OX 400 PO SCH ×2 (10:17→22:02)
[2020-09-07] MEDS: BUMEX 1 MG PO SCH ×3 (10:17→22:01)
[2020-09-07] MEDS: Toprol-Xl 25MG Tablets PO SCH (10:17)
[2020-09-07] MEDS: SYNTHROID 125 MCG PO SCH (10:17)
[2020-09-07] MEDS: VITA-BEE WITH C PO SCH (10:17)
--- NOTE | 2020-09-07 11:25 | PCM.NOTE ---
Date and Time: 09/07/20 1125 Subjective Assessment: doing ok - Review of Systems Constitutional: No Fever, No Chills Eyes: No Symptoms Ears, Nose, & Throat: No Symptoms Respiratory: No Cough, No Short Of Breath Cardiac: No Chest Pain, No Edema, No Syncope Abdominal/Gastrointestinal: No Abdominal Pain, No Nausea, No Vomiting, No Diarrhea Genitourinary Symptoms: No Dysuria Musculoskeletal: No Back Pain, No Neck Pain Skin: No Rash Neurological: No Dizziness, No Focal Weakness, No Sensory Changes Psychological: No Symptoms Endocrine: No Symptoms Hematologic/Lymphatic: No Symptoms Immunological/Allergic: No Symptoms Objective Exam General Appearance: no apparent distress, alert Neurologic Exam: alert, oriented x 3, cooperative, normal mood/affect, nml cerebellar function, sensation nml, No motor deficits Skin Exam: normal color, warm, dry Wound Assessment: Skin/Wound Assessment Wound/Incision Assessment Start: 09/05/20 10:29 Text: Status: Active Freq: Q6H Protocol: Document 09/07/20 08:00 RDUHNE (Rec: 09/07/20 08:26 RDUHNE [id number]) Wound/Incision Assessment Right Upper Buttock Wound Assessment Shift Assessment Wound Type Pressure Ulcer Wound Stage Stage III Drainage Amount None Drainage Odor None/Absent General Appearance Unapproximated Length (cm) (cm) 2 Width (cm) (cm) 3 Wound Bed Greatest Portion Red (Granulation) Surrounding Tissue Dark Red Primary Dressing mepilex dressing applied Comment wound care per PT. dressing cdi Right Posterior Buttock Wound Assessment Admission Wound Type Pressure Ulcer Wound Stage Stage III Drainage Amount None Drainage Odor None/Absent General Appearance Unapproximated Length (cm) (cm) 4 Width (cm) (cm) 4 Wound Bed Greatest Portion Red (Granulation) Surrounding Tissue Dark Red Primary Dressing mepilex dressing applied Comment wound care per PT. dressing cdi Left Posterior Buttock Wound Assessment Shift Assessment Wound Type Pressure Ulcer Wound Stage Stage III Drainage Amount None Drainage Odor None/Absent General Appearance Unapproximated Length (cm) (cm) 8 Width (cm) (cm) 4 Wound Bed Greatest Portion Red (Granulation) Surrounding Tissue Dark Red Primary Dressing mepilex applied Comment wound care per PT. dressing cdi Wound Photo Photo Taken No Eye Exam: PERRL, EOMI, eyes nml inspection Ears, Nose, Throat Exam: normal ENT inspection, pharynx normal, moist mucous membranes Neck Exam: normal inspection, non-tender, supple, full range of motion Respiratory Exam: normal breath sounds, lungs clear, No respiratory distress Cardiovascular Exam: regular rate/rhythm, normal heart sounds Gastrointestinal/Abdomen Exam: soft, No tenderness, No mass Extremity Exam: normal inspection, normal range of motion Back Exam: normal inspection, normal range of motion, No CVA tenderness, No vertebral tenderness Pelvic Exam: deferred Rectal Exam: deferred OBJECTIVE DATA Vital Signs: Vital Signs - 24 hr Temp Pulse Resp BP Pulse Ox 09/07/20 11:05 74 18 97 09/07/20 07:10 80 18 97 09/07/20 07:02 98.7 F 85 16 143/59 97 09/07/20 03:58 98.5 F 86 18 142/71 96 09/06/20 23:35 98.6 F 93 H 18 164/73 97 09/06/20 22:02 98 H 20 98 09/06/20 19:34 99.1 F 102 H 20 132/62 94 L 09/06/20 19:02 103 H 22 94 L 09/06/20 16:00 97.6 F 94 H 18 130/59 97 Pain Assessment - Last Documented Pain Intensity 0 Pain Scale Used 0-10 Pain Scale Intake and Output: Intake & Output 09/04/20 09/05/20 09/06/20 09/07/20 11:59 11:59 11:59 11:59 Intake Total 3658 680 Output Total 200 4850 2800 Balance -200 -1192 -2120 Weight 73.3 kg Lab Results: Lab Results-Last 24 Hours 09/06/20 09/06/20 09/07/20 Range/Units 16:02 20:43 06:55 POC Glucometer 165 H 123 H 129 H (74 to 106) mg/dL Multi-Disciplinary Progress Notes: Multi-Disciplinary Progress Notes 09/06/20 12:47 Physical Therapy Note by Madison Grajeda PT. REPORTS DECREASED BUTTOCK PN W/ FREQUENT POSITION CHANGE TO DECREASE PRESSURE ON BUTTOCKS DECUBITUS. STATES LBP IS ABOUT THE SAME. DRESSING ON R BUTTOCK FROM YESTERDAY WAS LOOSENED. MIN SANGUINEOUS DRAINAGE; NO ODOR. DRY TISSSUE IN PERIWOUND WAS REMOVED EASILY. CLEANSED W/ HIBICLENS AND APPLIED MEPILEX BORDER 4X 4S X 2 TO CLOSE DOWN WOUNDS AND PROTECT WOUND BED. PLAN IS TO D/C TO HOME W/ DAUGHTER. PT. DOES NOT WISH TO HAVE [facility] AT THIS TIME. PLAN IS TO CONT. W/C AND P.T. FOR STRENGTHENING AN OUTPATIENT. WILL CONT. PT 5X/WK UNTIL D/C. DR. MINAYA IS TO WRITE AN OP PT ORDER BEFORE D/C. MADISON GRAJEDA, PT Initialized on 09/06/20 12:47 - END OF NOTE 09/06/20 11:35 (created 09/06/20 14:19) Case Management Note by Ginette Hardin DAUGHTER CALLED BACK VOICING CONCERN ABOUT PT COMING HOME TOO SOON. REPORTS THAT SHE IS HOPEFUL HER MOTHER WILL STAY IN HOSPITAL TO RECEIVE CARE FOR HER WOUNDS. ALSO, INQUIRED ABOUT SWING BED PROGRAM. DID DISCUSS SWING BED WITH PT/DAUGHTER EARLIER, AN OPTION TO RECEIVE P.T. AND [facility] WOUND CARE PRIOR TO RETURNING HOME., PT IS REQUIRING MORE CARE AT THIS TIME. PT IS FAIRLY RESISTANT TO THIS IDEA. DAUGHTER FEELS THAT IF DR. MINAYA PRESENTS THE IDEA THAT SHE THINKS HER MOTHER WILL BE MORE WILLING. SPENT 35 MINUTES ON THE PHONE TALKING WITH DAUGHTER AND LISTENING TO HER CONCERNS. WILL TALK WITH DR. MINAYA DURING ROUNDS TOMORROW. Initialized on 09/06/20 14:19 - END OF NOTE Assessment/Plan (1) Decubitus ulcer of back, stage 2 Current Visit: Yes Status: Acute Code(s): L89.102 - PRESSURE ULCER OF UNSPECIFIED PART OF BACK, STAGE 2 (2) UTI (urinary tract infection) Current Visit: Yes Status: Acute Qualifiers: Urinary tract infection type: acute pyelonephritis Qualified Code(s): N10 - Acute pyelonephritis Code(s): N39.0 - URINARY TRACT INFECTION, SITE NOT SPECIFIED (3) Atrial fibrillation Current Visit: Yes Status: Chronic Qualifiers: Atrial fibrillation type: paroxysmal Qualified Code(s): I48.0 - Paroxysmal atrial fibrillation Code(s): I48.91 - UNSPECIFIED ATRIAL FIBRILLATION
[2020-09-07] MEDS: Levofloxacin 250MG Tablet PO SCH (13:43)
[2020-09-07] MEDS: Protonix 40MG Tablet PO SCH (22:01)
[2020-09-07] MEDS: Flomax 0.4 MG PO SCH (22:01)
[2020-09-08] MEDS: PATIENT OWN MEDICATION IH SCH (06:57)
[2020-09-08] MEDS: Glucophage 500 MG PO SCH (07:20)
[2020-09-08] MEDS: Levofloxacin 250MG Tablet PO SCH (09:28)
[2020-09-08] MEDS: Klor Con 10 MEQ PO SCH (09:28)
[2020-09-08] MEDS: MAG-OX 400 PO SCH (09:28)
[2020-09-08] MEDS: Flagyl 500 MG PO SCH (09:28)
[2020-09-08] MEDS: ELIQUIS 2.5 MG TABLET PO SCH (09:28)
[2020-09-08] MEDS: ZYLOPRIM 300 MG PO SCH (09:28)
[2020-09-08] MEDS: SYNTHROID 125 MCG PO SCH (09:28)
[2020-09-08] MEDS: Zaroxolyn 2.5 MG PO SCH (09:28)
[2020-09-08] MEDS: SYNTHROID 100 MCG PO SCH (09:28)
[2020-09-08] MEDS: BUMEX 1 MG PO SCH (09:28)
[2020-09-08] MEDS: Toprol-Xl 25MG Tablets PO SCH (09:29)
[2020-09-08] MEDS: NYSTOP POWDER 15 GM TP SCH (09:29)
[2020-09-08] MEDS: VITA-BEE WITH C PO SCH (09:29)
[2020-09-08] MEDS: NORCO 5/325 MG PO PRN (09:36)
[2020-09-08 11:47] VITALS: BP 132/55; PULSE 110; O2SAT 100
--- NOTE | 2020-09-08 12:13 | PCM.DS ---
Discharge Summary Date of Admission: 09/05/20 14:03 Admitting Physician: TRINH MINAYA Primary Care Provider: TRINH MINAYA Allergies Allergies ofloxacin [From Floxin] Allergy (Verified 09/05/20 04:35) Sulfa (Sulfonamide Antibiotics) [Sulfa(Sulfonamide Antibiotics)] Allergy (Verified 09/05/20 04:35) Hospital Summary - Hospital Course Hospital Course: Chief Complaint Diagnosis ACUTE PYELONEPHRITIS, DECUBITUS ULCERS Allergies Allergy/AdvReac Type Severity Reaction Status Date / Time ofloxacin [From Floxin] Allergy Verified 09/05/20 04:35 Sulfa (Sulfonamide Allergy Verified 09/05/20 04:35 Antibiotics) [Sulfa(Sulfonamide Antibiotics)] Vital Signs (Last 24 hours) Temp Pulse Resp BP Pulse Ox 09/08/20 11:47 97.9 F 110 H 18 132/55 100 09/08/20 07:21 98.5 F 91 H 16 114/46 96 09/08/20 06:58 91 H 16 96 09/08/20 03:58 98.4 F 85 16 134/62 97 09/08/20 00:06 98.6 F 95 H 17 97/53 97 09/07/20 20:15 92 H 16 97 09/07/20 20:00 98 F 100 H 18 115/61 98 09/07/20 16:00 97.8 F 104 H 18 133/62 97 09/07/20 14:53 91 H 18 97 Home Medications Medication Instructions Recorded Confirmed Last Taken Type Diclofenac Sodium Gel [Voltaren 1 gm TOP TID PRN 09/05/20 09/05/20 Unknown History GEL] Metoprolol Succinate 25 mg PO DAILY 09/05/20 09/05/20 09/04/20 History Tamsulosin HCl 0.4 mg [Flomax 0.4 mg PO HS 09/05/20 09/05/20 09/04/20 History 0.4 MG] Current Medications Discontinued Medications Generic Name Dose Route Start Last Admin Trade Name Freq PRN Reason Stop Dose Admin Hydrocodone Bitart/Acetaminophen 1 tab 09/05/20 14:10 09/08/20 09:36 [place] 5/325 Mg PO 09/10/20 14:09 1 tab Q6HPRN PRN Administration PAIN Allopurinol 300 mg 09/05/20 15:00 09/08/20 09:28 Zyloprim 300 Mg PO 10/05/20 14:59 300 mg DAILY NKECHI Administration Apixaban 2.5 mg 09/05/20 22:00 09/08/20 09:28 Eliquis 2.5 Mg Tablet PO 10/05/20 21:59 2.5 mg BID NKECHI Administration Bumetanide 1 mg 09/05/20 15:00 09/08/20 09:28 Bumex 1 Mg PO 10/05/20 14:59 1 mg TID NKECHI Administration Ceftriaxone Sodium 1,000 mg 09/07/20 10:00 09/07/20 10:22 Rocephin 1000 Mg Inj IM 10/07/20 09:59 1,000 mg DAILY NKECHI Administration Diclofenac Sodium 1 gm 09/05/20 14:15 09/06/20 10:53 Voltaren Gel TOP 10/05/20 14:14 1 gm TID PRN PRN Administration Hydromorphone HCl 0.5 mg 09/05/20 06:52 09/05/20 08:05 Hydromorphone 1 Mg/Ml Injection IV 09/10/20 06:51 0.5 mg Q4H PRN PRN Administration PAIN Sodium Chloride 1,000 mls @ 999 mls/hr 09/05/20 05:09 09/05/20 06:03 Sodium Chloride 0.9% 1000 Ml IV 09/05/20 06:09 Not Given .Q1H1M STA Sodium Chloride Confirm 09/05/20 05:23 Sodium Chloride 0.9% 1000 Ml Administered 09/05/20 05:24 Dose 1,000 mls @ ud .ROUTE .STK-MED ONE Sodium Chloride 1,000 mls @ 80 mls/hr 09/05/20 07:00 09/06/20 05:00 Sodium Chloride 0.9% 1000 Ml IV 10/05/20 06:59 80 mls/hr .[id number] NKECHI Administration Ceftriaxone Sodium/Dextrose 1 g in 50 mls @ 100 mls/hr 09/05/20 10:00 09/06/20 10:51 Rocephin 1 Gm-D5w 50 Ml Bag IV 10/05/20 09:59 100 mls/hr Q24H10 NKECHI Administration Iron Sucrose 200 mg/ Dextrose 110 mls @ 200 mls/hr 09/06/20 11:30 09/06/20 12:02 IV 09/06/20 12:02 200 mls/hr NOW ONE Administration Insulin Human Regular 0 unit 09/05/20 06:52 Humulin R SQ 10/05/20 06:51 UD PRN HYPERGLYCEMIA Iron Sucrose 200 mg 09/10/20 10:00 Venofer 100 Mg/5 Ml IV 09/13/20 09:59 DAILY NKECHI Levofloxacin 250 mg 09/07/20 12:45 09/08/20 09:28 Levofloxacin 250mg Tablet PO 10/07/20 12:44 250 mg DAILY NKECHI Administration Levothyroxine Sodium 125 mcg 09/05/20 15:00 09/08/20 09:28 Synthroid 125 Mcg PO 10/05/20 14:59 125 mcg DAILY NKECHI Administration Levothyroxine Sodium 100 mcg 09/05/20 15:00 09/08/20 09:28 Synthroid 100 Mcg PO 10/05/20 14:59 100 mcg DAILY NKECHI Administration Lidocaine HCl 2.1 ml 09/07/20 10:02 09/07/20 10:27 Xylocaine 1% Hcl 20 Ml Mdv IJ 09/07/20 10:03 2.1 ml ONCE ONE Administration Magnesium Oxide 400 mg 09/05/20 22:00 09/08/20 09:28 Mag-Ox 400 PO 10/05/20 21:59 400 mg BID NKECHI Administration Metformin HCl 500 mg 09/05/20 17:00 09/08/20 07:20 Glucophage 500 Mg PO 10/05/20 16:59 500 mg BIDWM NKECHI Administration Metolazone 2.5 mg 09/05/20 15:00 09/08/20 09:28 Zaroxolyn 2.5 Mg PO 10/05/20 14:59 2.5 mg DAILY NKECHI Administration Metoprolol Succinate 25 mg 09/05/20 15:00 09/08/20 09:29 Toprol-Xl 25mg Tablets PO 10/05/20 14:59 25 mg DAILY NKECHI Administration Metronidazole 500 mg 09/05/20 15:00 09/08/20 09:28 Flagyl 500 Mg PO 10/05/20 14:59 500 mg TID NKECHI Administration Multivitamins 1 tab 09/05/20 15:00 09/08/20 09:29 Melissa-Bee With C PO 10/05/20 14:59 1 tab DAILY NKECHI Administration Nitroglycerin 0.4 mg 09/05/20 14:03 Nitrostat 0.4 Mg Tablet SL 10/05/20 14:02 Q5MIN PRN MR X 3 PRN CHEST PAIN Nystatin 1 gm 09/06/20 12:00 09/08/20 09:29 Nystop Powder 15 Gm TP 10/06/20 11:59 1 gm BID NKECHI Administration Ondansetron HCl 4 mg 09/05/20 05:09 09/05/20 05:28 Zofran 4 Mg/2 Ml Vial IV 09/05/20 05:10 4 mg STAT ONE Administration Ondansetron HCl Confirm 09/05/20 05:23 Zofran 4 Mg/2 Ml Vial Administered 09/05/20 05:24 Dose 4 mg .ROUTE .STK-MED ONE Ondansetron HCl 4 mg 09/05/20 06:52 Zofran 4 Mg/2 Ml Vial IV 10/05/20 06:51 Q6H PRN PRN NAUSEA/VOMITING Pantoprazole Sodium 40 mg 09/05/20 22:00 09/07/20 22:01 Protonix 40mg Tablet PO 10/05/20 21:59 40 mg HS NKECHI Administration Patient Own Medication 2 each 09/06/20 07:00 09/08/20 06:57 Patient Own Medication IH 10/06/20 06:59 2 each QIDRT NKECHI Administration Patient Own Medication 2 each 09/05/20 21:13 09/05/20 22:40 Patient Own Medication IH 10/05/20 21:12 2 each Q4HPRN PRN Administration SHORTNESS OF BREATH/WHEEZING Potassium Chloride 30 meq 09/05/20 22:00 09/08/20 09:28 Klor Con 10 Meq PO 10/05/20 21:59 30 meq BID NKECHI Administration Tamsulosin HCl 0.4 mg 09/05/20 22:00 09/07/20 22:01 Flomax 0.4 Mg PO 10/05/20 21:59 0.4 mg HS NKECHI Administration Intake & Output (Last 24 hours) 09/06/20 09/07/20 09/08/20 09/09/20 11:59 11:59 11:59 10:59 Intake Total 3658 680 1220 Output Total 4850 2800 600 Balance -1192 -2120 620 Weight 73.3 kg Laboratory Results (Last 24 hours) 09/08/20 09/07/20 09/07/20 07:16 20:37 16:07 POC Glucometer 145 H 154 H 153 H Orders (Last 24 hours) Category Date Time Status Miscellaneous Nursing Order ROUTINE Care 09/07/20 12:00 Active Miscellaneous Nursing Order ROUTINE Care 09/07/20 17:44 Active Boost Diet 09/07/20 Dinner Completed Prostat 64 Diet 09/07/20 Dinner Completed Discharge Routine Discharge 09/08/20 Ordered POCT GLUCOSE Stat Lab 09/07/20 11:31 Completed POCT GLUCOSE Stat Lab 09/07/20 16:07 Completed POCT GLUCOSE Stat Lab 09/07/20 20:37 Completed POCT GLUCOSE Stat Lab 09/08/20 07:16 Completed Iron Sucrose Complex 100 mg/ 5 [Venofer 100 MG/5 ML] Med 09/10/20 10:00 Discontinued 200 mg IV DAILY Levofloxacin [Levofloxacin 250MG Tablet] Med 09/07/20 12:45 Discontinued 250 mg PO DAILY Discharge Transfer Routine Transfer 09/08/20 Completed Patient Care Notes (Last 24 hours) 09/07/20 17:46 Nursing Note by Kit Cervantes from Dr De's office called and informed me that Dr De wishes to continue present iron infusions. Initialized on 09/07/20 17:46 - END OF NOTE 09/07/20 15:37 Physical Therapy Note by Madison Posey PT. REPORTS FEELING BETTER. STATES ON IN BUTTOCKS IN AREA OF DECUBITII IS DECREASED. MEPILEX BORDER DRESSINGS INTACT FROM YESTERDAY. MINIMAL SANGUINEOUS DRAINAGE NOTED ON BANDAGE. CLEANSED W/ HIBICLENS, APPLIED BARRIER OINTMENT TO PERPIHERY OF WOUND AND SURROUNDING TISSUE. GRANULATION TISSUE PRESENT WITHOUT ESCHAR. NO ODOR NOTED. DRESSED W/ SKIN PREP IN PERIPHERY AND COVERED W/ MEPILEX BORDER DRESSINGS ONE ON EACH BUTTOCK WOUND. CONT. W/ FREQUENT POSITION CHANGES TO DECREASE PRESSURE, PT. AMBULATED 60' X 2 W/ ROLLER WALKER AND SBA. TRANSFERS REQUIRE CGA. PLAN IS FOR SWINGBED TOMORROW FOR REHAB. MADISON POSEY, PT Initialized on 09/07/20 15:37 - END OF NOTE - Vitals & Intake/Output Vital Signs: Vital Signs Temperature 97.9 F 09/08/20 11:47 Pulse Rate 110 H 09/08/20 11:47 Respiratory Rate 18 09/08/20 11:47 Blood Pressure 132/55 09/08/20 11:47 O2 Sat by Pulse Oximetry 100 09/08/20 11:47 Intake & Output: Intake & Output 09/06/20 09/07/20 09/08/20 09/09/20 11:59 11:59 11:59 10:59 Intake Total 3658 680 1220 Output Total 4850 2800 600 Balance -1192 -2120 620 Weight 73.3 kg - Lab Result Diagrams: 09/05/20 05:00 09/05/20 05:00 Lab Results-Last 24 Hrs: Lab Results-Last 24 Hours 09/07/20 09/07/20 09/08/20 Range/Units 16:07 20:37 07:16 POC Glucometer 153 H 154 H 145 H (74 to 106) mg/dL Micro Results-Entire Visit: Microbiology 09/05/20 Unknown Urine Culture - Final Catherized Enterobacter Aerogenes 09/05/20 07:13 Blood Culture - Preliminary Blood NO GROWTH TO DATE 09/05/20 07:01 Blood Culture - Preliminary Blood NO GROWTH TO DATE Accuchecks Date 09/08/20 Date 09/08/20 Time 07:52 Time 07:22 - Procedures and Test Procedures and Tests throughout Hospitalization: Therapy Orders & Screens 09/05/20 06:52 Oxygen Nasal Cannula 2 lpm Comment: 09/05/20 10:29 OT Screen per Nursing Assess ONCE Comment: Protocol Order Physician Instructions: Greater than 3 points order OT Admission Screening Reason For Exam: Triggered on Admission Diagnosis: UTI Open Wound/Cellutlitis/Pressure Ulcers: Yes Acute Fx/ORIF/Change in wt bearing status: No Severe MUSCULOSKELETAL pain: Yes ADL Dysfunction: No Acute CVA w/Hemiparesis/Hemiplegia: No Decreased Functional Mobility/Strength: Yes Sprain/Strain: No Acute Post-op Mobility Dysfunction: No Total Points: 11 PT Screen per Nursing Assess ONCE Comment: Protocol Order Physician Instructions: Greater than 3 points order PT Admission Screenin Reason For Exam: Triggered on Admission Diagnosis: UTI Open Wound/Cellutlitis/Pressure Ulcers: Yes Acute Fx/ORIF/Change in wt bearing status: No Severe MUSCULOSKELETAL pain: Yes ADL Dysfunction: No Acute CVA w/Hemiparesis/Hemiplegia: No Decreased Functional Mobility/Strength: Yes Sprain/Strain: No Acute Post-op Mobility Dysfunction: No Total Points: 11 09/05/20 10:54 PT Eval & Treat (MD Order) ONCE Reason for Eval:: WOUND CARE Diagnosis: UTI 09/05/20 21:15 Peak Expiratory Flow Rate ONCE Comment: Reason For Exam: Diagnosis: ACUTE PYELONEPHRITIS, DECUBITUS ULCERS Respiratory Therapy Assessment DAILY Comment: Diagnosis: ACUTE PYELONEPHRITIS, DECUBITUS ULCERS 09/05/20 21:24 Respiratory MDI QID Comment: PT'S HOME ALBUTEROL MDI QID AND Q4HPRN Diagnosis: ACUTE PYELONEPHRITIS, DECUBITUS ULCERS Discharge Exam General Appearance: no apparent distress, alert Neurologic Exam: alert, oriented x 3, cooperative, normal mood/affect, nml cerebellar function, sensation nml, No motor deficits Eye Exam: PERRL, EOMI, eyes nml inspection Ears, Nose, Throat Exam: normal ENT inspection, pharynx normal, moist mucous membranes Neck Exam: normal inspection, non-tender, supple, full range of motion Respiratory Exam: normal breath sounds, lungs clear, No respiratory distress Cardiovascular Exam: regular rate/rhythm, normal heart sounds Gastrointestinal/Abdomen Exam: soft, No tenderness, No mass Pelvic Exam: deferred Rectal Exam: deferred Back Exam: normal inspection, normal range of motion, No CVA tenderness, No vertebral tenderness Extremity Exam: normal inspection, normal range of motion Skin Exam: normal color, warm, dry Wound Assessment: Skin/Wound Assessment Wound/Incision Assessment Start: 09/05/20 10:29 Text: Status: Active Freq: Q6H Protocol: Document 09/08/20 07:52 AMAYA (Rec: 09/08/20 07:55 AMAYA [id number]) Wound/Incision Assessment Right Upper Buttock Wound Assessment Shift Assessment Wound Type Pressure Ulcer Wound Stage Stage III Drainage Amount None Drainage Odor None/Absent General Appearance Unapproximated Length (cm) (cm) 2 Width (cm) (cm) 3 Wound Bed Greatest Portion Red (Granulation) Surrounding Tissue Dark Red Primary Dressing mepilex dressing applied Comment wound care per PT. dressing cdi Right Posterior Buttock Wound Assessment Admission Wound Type Pressure Ulcer Wound Stage Stage III Drainage Amount None Drainage Odor None/Absent General Appearance Unapproximated Length (cm) (cm) 4 Width (cm) (cm) 4 Wound Bed Greatest Portion Red (Granulation) Surrounding Tissue Dark Red Primary Dressing mepilex dressing applied Comment wound care per PT. dressing cdi Left Posterior Buttock Wound Assessment Shift Assessment Wound Type Pressure Ulcer Wound Stage Stage III Drainage Amount None Drainage Odor None/Absent General Appearance Unapproximated Length (cm) (cm) 8 Width (cm) (cm) 4 Wound Bed Greatest Portion Red (Granulation) Surrounding Tissue Dark Red Primary Dressing mepilex applied Comment wound care per PT. dressing cdi Wound Photo Photo Taken No Final Diagnosis/Problem List - Final Discharge Diagnosis/Problem (1) Decubitus ulcer of back, stage 2 Status: Acute Code(s): L89.102 - PRESSURE ULCER OF UNSPECIFIED PART OF BACK, STAGE 2 (2) UTI (urinary tract infection) Status: Acute Code(s): N39.0 - URINARY TRACT INFECTION, SITE NOT SPECIFIED (3) Atrial fibrillation Status: Chronic Code(s): I48.91 - UNSPECIFIED ATRIAL FIBRILLATION - Discharge Discharge Date: 09/08/20 Disposition: Swing Bed @ [facility] Condition: Stable Prescriptions: No Action Magnesium Oxide 400 mg [Mag-Ox 400] 400 mg PO BID Potassium Chloride [Klor-Con 10] 30 meq PO BID Bumetanide 1 mg [Bumex 1 mg] 1 mg PO TID Allopurinol 300 mg [Zyloprim 300 mg] 300 mg PO DAILY PANTOPRAZOLE 40 mg Tablet [Protonix 40MG Tablet] 40 mg PO HS Apixaban [Eliquis] 2.5 mg PO BID Metolazone 2.5 mg [Zaroxolyn 2.5 MG] 2.5 mg PO DAILY Levothyroxine Sodium [Synthroid] 25 mcg PO DAILY Levothyroxine Sodium [Synthroid] 200 mcg PO DAILY Nitroglycerin 0.4 mg Tablet [Nitrostat 0.4 MG Tablet] 0.4 mg SL Q5MIN PRN MR X 3 PRN PRN Reason: Chest Pain Vitamin B Complex [Super B-50 Complex] 1 each PO DAILY Metformin HCl 500 mg PO BID Hydrocodone/APAP 5-325 Tab^^^ [[place] 5-325 Tablet^^^] 1 tab PO Q6HPRN PRN #10 tablet MDD 6 PRN Reason: Pain metroNIDAZOLE [Flagyl] 500 mg PO TID Tamsulosin HCl 0.4 mg [Flomax 0.4 MG] 0.4 mg PO HS Metoprolol Succinate 25 mg PO DAILY Diclofenac Sodium Gel [Voltaren GEL] 1 gm TOP TID PRN Follow up with: TRINH MINAYA MD [Primary Care Provider] - 1 Week
[2020-09-10] MEDS ORDERED: Venofer 100 MG/5 ML IV SCH (10:00)
== END 2020-09-08 11:33 | disposition swing bed (61) | DRG 593 ==
LOC: ED 04:03 → MED SURG 07:53 → OBSVTOIN 14:03
PROVIDERS: ADMIT General Practice; ATTEND General Practice
DX: L89.322 Pressure ulcer of left buttock, stage 2 (principal); N39.0 Urinary tract infection, site not specified; N18.4 Chronic kidney disease, stage 4 (severe); L89.312 Pressure ulcer of right buttock, stage 2; D63.1 Anemia in chronic kidney disease; D64.1 Secondary sideroblastic anemia due to disease; R53.1 Weakness; M54.9 Dorsalgia, unspecified; E11.9 Type 2 diabetes mellitus without complications; I10 Essential (primary) hypertension; E03.9 Hypothyroidism, unspecified; J44.9 Chronic obstructive pulmonary disease, unspecified; I48.91 Unspecified atrial fibrillation; Z79.01 Long term (current) use of anticoagulants; Z79.899 Other long term (current) drug therapy
CPT/HCPCS: 36415; 71250; 74176; 80053; 81001; 82947; 83036; 83605; 83880; 84484; 85025; 85610; 85730; 87040; 87077; 87086; 87186; 93005; 94640; 94760; 96360; 99285; J0696; J1170; J1756; J2405; A9270-GY

== ENCOUNTER 2020-09-08 11:33 | Inpatient (IN) | payer MEDICARE ==
[2020-09-08] MEDS ORDERED: Zofran 4 MG/2 ML VIAL IV PRN (11:41)
[2020-09-08] MEDS ORDERED: Nitrostat 0.4 MG Tablet SL PRN (11:41)
[2020-09-08] MEDS ORDERED: PATIENT OWN MEDICATION IH PRN (11:41)
[2020-09-08] MEDS ORDERED: Hydromorphone 1 mg/ml Injection IV PRN (11:41)
[2020-09-08] MEDS ORDERED: HUMULIN R SQ PRN (11:41)
--- NOTE | 2020-09-08 12:21 | PCM.HP.ADD ---
Addendum to History & Physical - History & Physical Addendum Addendum to History & Physical: This certifies that the History & Physical in the electronic chart reflects the current health status of the patient. If there are changes in the H&P these changes/exceptions are listed as follows.
[2020-09-08] MEDS: Flagyl 500 MG PO SCH ×2 (14:12→22:11)
[2020-09-08] MEDS: BUMEX 1 MG PO SCH ×2 (14:12→22:11)
[2020-09-08] MEDS: NORCO 5/325 MG PO PRN (14:15)
[2020-09-08] MEDS: PATIENT OWN MEDICATION IH SCH ×2 (14:39→19:33)
[2020-09-08] MEDS: Glucophage 500 MG PO SCH (16:17)
[2020-09-08] MEDS: ELIQUIS 2.5 MG TABLET PO SCH (22:11)
[2020-09-08] MEDS: Flomax 0.4 MG PO SCH (22:11)
[2020-09-08] MEDS: Protonix 40MG Tablet PO SCH (22:11)
[2020-09-08] MEDS: MAG-OX 400 PO SCH (22:11)
[2020-09-08] MEDS: Klor Con 10 MEQ PO SCH (22:11)
[2020-09-08] MEDS: NYSTOP POWDER 15 GM TP SCH (22:12)
[2020-09-09] MEDS: PATIENT OWN MEDICATION IH SCH ×4 (07:12→19:45)
[2020-09-09] MEDS: Flagyl 500 MG PO SCH ×3 (08:29→22:05)
[2020-09-09] MEDS: Glucophage 500 MG PO SCH ×2 (08:29→16:52)
[2020-09-09] MEDS: Klor Con 10 MEQ PO SCH ×2 (08:29→22:05)
[2020-09-09] MEDS: SYNTHROID 100 MCG PO SCH (08:29)
[2020-09-09] MEDS: Zaroxolyn 2.5 MG PO SCH (08:29)
[2020-09-09] MEDS: ZYLOPRIM 300 MG PO SCH (08:29)
[2020-09-09] MEDS: MAG-OX 400 PO SCH ×2 (08:29→22:05)
[2020-09-09] MEDS: BUMEX 1 MG PO SCH ×3 (08:29→22:05)
[2020-09-09] MEDS: Toprol-Xl 25MG Tablets PO SCH (08:29)
[2020-09-09] MEDS: SYNTHROID 125 MCG PO SCH (08:29)
[2020-09-09] MEDS: ELIQUIS 2.5 MG TABLET PO SCH ×2 (08:30→22:06)
[2020-09-09] MEDS: Levofloxacin 250MG Tablet PO SCH (08:30)
[2020-09-09] MEDS: VITA-BEE WITH C PO SCH (08:30)
[2020-09-09] MEDS: NYSTOP POWDER 15 GM TP SCH ×2 (08:30→22:29)
[2020-09-09] MEDS: NORCO 5/325 MG PO PRN ×2 (08:37→22:10)
[2020-09-09] MEDS ORDERED: Aplisol ID ONE (10:00)
[2020-09-09] MEDS ORDERED: ZOFRAN ODT 4 MG PO PRN (14:09)
[2020-09-09] MEDS: Protonix 40MG Tablet PO SCH (22:05)
[2020-09-09] MEDS: Flomax 0.4 MG PO SCH (22:05)
[2020-09-09] MEDS: Voltaren GEL TOP PRN (22:19)
[2020-09-10] MEDS: PATIENT OWN MEDICATION IH SCH ×4 (06:48→19:45)
[2020-09-10] MEDS: ELIQUIS 2.5 MG TABLET PO SCH ×2 (08:18→21:14)
[2020-09-10] MEDS: SYNTHROID 100 MCG PO SCH (08:18)
[2020-09-10] MEDS: Levofloxacin 250MG Tablet PO SCH (08:18)
[2020-09-10] MEDS: ZYLOPRIM 300 MG PO SCH (08:18)
[2020-09-10] MEDS: Zaroxolyn 2.5 MG PO SCH (08:18)
[2020-09-10] MEDS: BUMEX 1 MG PO SCH ×3 (08:18→21:15)
[2020-09-10] MEDS: NORCO 5/325 MG PO PRN ×2 (08:18→19:34)
[2020-09-10] MEDS: MAG-OX 400 PO SCH ×2 (08:18→21:15)
[2020-09-10] MEDS: Klor Con 10 MEQ PO SCH ×2 (08:18→21:14)
[2020-09-10] MEDS: SYNTHROID 125 MCG PO SCH (08:19)
[2020-09-10] MEDS: NYSTOP POWDER 15 GM TP SCH ×2 (08:19→19:50)
[2020-09-10] MEDS: VITA-BEE WITH C PO SCH (08:19)
[2020-09-10] MEDS: Glucophage 500 MG PO SCH ×2 (08:19→16:22)
[2020-09-10] MEDS: Toprol-Xl 25MG Tablets PO SCH (08:19)
[2020-09-10] MEDS: Flagyl 500 MG PO SCH ×3 (08:19→21:16)
[2020-09-10] MEDS ORDERED: Venofer 100 MG/5 ML IV SCH (10:00)
[2020-09-10] MEDS: SODIUM CHLORIDE 0.9% IV SCH (10:29)
[2020-09-10] MEDS: VENOFER IV SCH (10:29)
[2020-09-10] MEDS ORDERED: IMODIUM 2 MG PO ONE (12:23)
[2020-09-10] MEDS: Flomax 0.4 MG PO SCH (21:14)
[2020-09-10] MEDS: Protonix 40MG Tablet PO SCH (21:15)
[2020-09-11] MEDS: PATIENT OWN MEDICATION IH SCH ×4 (07:17→19:14)
[2020-09-11] MEDS: ZYLOPRIM 300 MG PO SCH (08:22)
[2020-09-11] MEDS: ELIQUIS 2.5 MG TABLET PO SCH ×2 (08:22→21:49)
[2020-09-11] MEDS: SYNTHROID 100 MCG PO SCH (08:22)
[2020-09-11] MEDS: Klor Con 10 MEQ PO SCH ×2 (08:22→21:51)
[2020-09-11] MEDS: MAG-OX 400 PO SCH ×2 (08:22→21:51)
[2020-09-11] MEDS: SYNTHROID 125 MCG PO SCH (08:22)
[2020-09-11] MEDS: Flagyl 500 MG PO SCH ×3 (08:23→21:49)
[2020-09-11] MEDS: BUMEX 1 MG PO SCH ×3 (08:23→21:48)
[2020-09-11] MEDS: NYSTOP POWDER 15 GM TP SCH ×2 (08:23→21:51)
[2020-09-11] MEDS: VITA-BEE WITH C PO SCH (08:23)
[2020-09-11] MEDS: Levofloxacin 250MG Tablet PO SCH (08:23)
[2020-09-11] MEDS: Toprol-Xl 25MG Tablets PO SCH (08:23)
[2020-09-11] MEDS: Glucophage 500 MG PO SCH ×2 (08:23→16:49)
[2020-09-11] MEDS: NORCO 5/325 MG PO PRN ×2 (08:30→22:20)
[2020-09-11] MEDS: Zaroxolyn 2.5 MG PO SCH (08:32)
[2020-09-11] MEDS: VENOFER IV SCH (08:32)
[2020-09-11] MEDS: SODIUM CHLORIDE 0.9% IV SCH (08:32)
[2020-09-11] MEDS: IMODIUM 2 MG PO PRN (09:01)
[2020-09-11] MEDS: Flomax 0.4 MG PO SCH (21:49)
[2020-09-11] MEDS: Protonix 40MG Tablet PO SCH (21:51)
[2020-09-12] MEDS: PATIENT OWN MEDICATION IH SCH ×4 (06:48→19:20)
[2020-09-12] MEDS: Glucophage 500 MG PO SCH ×2 (08:07→17:15)
--- NOTE | 2020-09-12 08:45 | PCM.NOTE ---
Date and Time: 09/12/2044 Subjective Assessment: doing ok - Review of Systems Constitutional: No Fever, No Chills Eyes: No Symptoms Ears, Nose, & Throat: No Symptoms Respiratory: No Cough, No Short Of Breath Cardiac: No Chest Pain, No Edema, No Syncope Abdominal/Gastrointestinal: No Abdominal Pain, No Nausea, No Vomiting, No Diarrhea Genitourinary Symptoms: No Dysuria Musculoskeletal: No Back Pain, No Neck Pain Skin: No Rash Neurological: No Dizziness, No Focal Weakness, No Sensory Changes Psychological: No Symptoms Endocrine: No Symptoms Hematologic/Lymphatic: No Symptoms Immunological/Allergic: No Symptoms Objective Exam General Appearance: no apparent distress, alert Neurologic Exam: alert, oriented x 3, cooperative, normal mood/affect, nml cerebellar function, sensation nml, No motor deficits Skin Exam: normal color, warm, dry Wound Assessment: Skin/Wound Assessment Wound/Incision Assessment Start: 09/10/20 07:16 Text: Status: Active Freq: Q6H Protocol: Document 09/12/20 02:00 SG (Rec: 09/12/20 02:04 [id number]) Wound/Incision Assessment BILATERAL BUTTOCK CREASE Wound Assessment Shift Assessment Wound Type Pressure Ulcer Wound Stage Stage II Dressing Status Dry & Intact Drainage Odor None/Absent General Appearance Reddened Surrounding Tissue [place] Primary Dressing MEPILEX DRESSING with gauze Comment Mepilex dressing with gauze on at this time per PT. marketing copywriter unable to visualize due to dressing. dressing CDI. remains true Eye Exam: PERRL, EOMI, eyes nml inspection Ears, Nose, Throat Exam: normal ENT inspection, pharynx normal, moist mucous membranes Neck Exam: normal inspection, non-tender, supple, full range of motion Respiratory Exam: normal breath sounds, lungs clear, No respiratory distress Cardiovascular Exam: regular rate/rhythm, normal heart sounds Gastrointestinal/Abdomen Exam: soft, No tenderness, No mass Extremity Exam: normal inspection, normal range of motion Back Exam: normal inspection, normal range of motion, No CVA tenderness, No vertebral tenderness Pelvic Exam: deferred Rectal Exam: deferred OBJECTIVE DATA Vital Signs: Vital Signs - 24 hr Temp Pulse Resp BP Pulse Ox 09/12/20 08:00 98.0 F 87 18 126/57 98 09/12/20 06:49 89 16 95 09/12/20 02:00 96.3 F 104 H 20 126/60 96 09/11/20 19:57 104 H 16 98 09/11/20 19:44 97 F 104 H 20 131/60 98 09/11/20 14:00 98.0 F 09/11/20 11:27 66 16 Pain Assessment - Last Documented Pain Intensity 0 Pain Scale Used FLACC Intake and Output: Intake & Output 09/09/20 09/10/20 09/11/20 09/12/20 11:59 11:59 11:59 11:59 Intake Total 380 360 580 Balance 380 360 580 Weight 73.3 kg Lab Results: Lab Results-Last 24 Hours 09/11/20 09/11/20 09/11/20 Range/Units 11:45 16:54 21:12 POC Glucometer 149 H 160 H 194 H (74 to 106) mg/dL 09/12/20 Range/Units 07:50 POC Glucometer 136 H (74 to 106) mg/dL Assessment/Plan (1) Decubitus ulcer of back, stage 2 Current Visit: Yes Status: Acute Code(s): L89.102 - PRESSURE ULCER OF UNSPECIFIED PART OF BACK, STAGE 2 (2) Diabetic neuropathy associated with type 2 diabetes mellitus Current Visit: No Status: Chronic Qualifiers: Code(s): E11.40 - TYPE 2 DIABETES MELLITUS WITH DIABETIC NEUROPATHY, UNSP
[2020-09-12] MEDS ORDERED: Sodium Chloride 0.9% 100 ML IVPB 0 ML IV ONE (09:06)
[2020-09-12] MEDS: VENOFER IV SCH (09:17)
[2020-09-12] MEDS: SODIUM CHLORIDE 0.9% IV SCH (09:17)
[2020-09-12] MEDS: IMODIUM 2 MG PO PRN ×2 (09:21→20:09)
[2020-09-12] MEDS: Zaroxolyn 2.5 MG PO SCH (09:21)
[2020-09-12] MEDS: MAG-OX 400 PO SCH ×2 (09:21→22:49)
[2020-09-12] MEDS: Klor Con 10 MEQ PO SCH ×2 (09:22→22:49)
[2020-09-12] MEDS: SYNTHROID 100 MCG PO SCH (09:22)
[2020-09-12] MEDS: Toprol-Xl 25MG Tablets PO SCH (09:23)
[2020-09-12] MEDS: Levofloxacin 250MG Tablet PO SCH (09:23)
[2020-09-12] MEDS: Flagyl 500 MG PO SCH ×3 (09:23→22:49)
[2020-09-12] MEDS: BUMEX 1 MG PO SCH ×3 (09:24→22:49)
[2020-09-12] MEDS: ELIQUIS 2.5 MG TABLET PO SCH ×2 (09:24→22:49)
[2020-09-12] MEDS: ZYLOPRIM 300 MG PO SCH (09:24)
[2020-09-12] MEDS: SYNTHROID 125 MCG PO SCH (09:25)
[2020-09-12] MEDS: NYSTOP POWDER 15 GM TP SCH ×2 (09:25→22:57)
[2020-09-12] MEDS: VITA-BEE WITH C PO SCH (09:27)
[2020-09-12] MEDS: Flomax 0.4 MG PO SCH (22:49)
[2020-09-12] MEDS: Protonix 40MG Tablet PO SCH (22:49)
[2020-09-12] MEDS: NORCO 5/325 MG PO PRN (22:53)
[2020-09-13] MEDS: PATIENT OWN MEDICATION IH SCH ×4 (06:55→19:42)
[2020-09-13] MEDS: Flagyl 500 MG PO SCH ×3 (09:13→22:32)
[2020-09-13] MEDS: ZYLOPRIM 300 MG PO SCH (09:13)
[2020-09-13] MEDS: ELIQUIS 2.5 MG TABLET PO SCH ×2 (09:13→22:32)
[2020-09-13] MEDS: Glucophage 500 MG PO SCH ×2 (09:13→17:23)
[2020-09-13] MEDS: SYNTHROID 125 MCG PO SCH (09:13)
[2020-09-13] MEDS: SYNTHROID 100 MCG PO SCH (09:13)
[2020-09-13] MEDS: Toprol-Xl 25MG Tablets PO SCH (09:13)
[2020-09-13] MEDS: VITA-BEE WITH C PO SCH (09:13)
[2020-09-13] MEDS: MAG-OX 400 PO SCH ×2 (09:13→22:31)
[2020-09-13] MEDS: Klor Con 10 MEQ PO SCH ×2 (09:13→22:31)
[2020-09-13] MEDS: Levofloxacin 250MG Tablet PO SCH (09:13)
[2020-09-13] MEDS: BUMEX 1 MG PO SCH ×3 (09:13→22:31)
[2020-09-13] MEDS: Zaroxolyn 2.5 MG PO SCH (09:13)
[2020-09-13] MEDS: NYSTOP POWDER 15 GM TP SCH ×2 (11:08→22:40)
[2020-09-13] MEDS: NORCO 5/325 MG PO PRN (22:31)
[2020-09-13] MEDS: Protonix 40MG Tablet PO SCH (22:31)
[2020-09-13] MEDS: Flomax 0.4 MG PO SCH (22:31)
[2020-09-13] MEDS: Voltaren GEL TOP PRN (22:32)
[2020-09-14] MEDS: PATIENT OWN MEDICATION IH SCH ×4 (06:20→18:50)
[2020-09-14] MEDS: ELIQUIS 2.5 MG TABLET PO SCH ×2 (08:14→22:31)
[2020-09-14] MEDS: SYNTHROID 125 MCG PO SCH (08:15)
[2020-09-14] MEDS: ZYLOPRIM 300 MG PO SCH (08:15)
[2020-09-14] MEDS: Klor Con 10 MEQ PO SCH ×2 (08:15→22:31)
[2020-09-14] MEDS: Zaroxolyn 2.5 MG PO SCH (08:15)
[2020-09-14] MEDS: Flagyl 500 MG PO SCH ×3 (08:15→22:31)
[2020-09-14] MEDS: BUMEX 1 MG PO SCH ×3 (08:15→22:31)
[2020-09-14] MEDS: Glucophage 500 MG PO SCH ×2 (08:15→16:18)
[2020-09-14] MEDS: SYNTHROID 100 MCG PO SCH (08:15)
[2020-09-14] MEDS: Toprol-Xl 25MG Tablets PO SCH (08:15)
[2020-09-14] MEDS: MAG-OX 400 PO SCH ×2 (08:15→22:32)
[2020-09-14] MEDS: Levofloxacin 250MG Tablet PO SCH (08:16)
[2020-09-14] MEDS: VITA-BEE WITH C PO SCH (08:17)
[2020-09-14] MEDS: IMODIUM 2 MG PO PRN (08:30)
[2020-09-14] MEDS: NYSTOP POWDER 15 GM TP SCH ×2 (12:29→22:32)
[2020-09-14] MEDS: Flomax 0.4 MG PO SCH (22:31)
[2020-09-14] MEDS: Protonix 40MG Tablet PO SCH (22:32)
[2020-09-14] MEDS: NORCO 5/325 MG PO PRN (22:32)
[2020-09-15] MEDS: PATIENT OWN MEDICATION IH SCH ×4 (06:30→19:20)
[2020-09-15] MEDS: Glucophage 500 MG PO SCH ×2 (08:12→18:06)
[2020-09-15] MEDS: Levofloxacin 250MG Tablet PO SCH (09:23)
[2020-09-15] MEDS: Klor Con 10 MEQ PO SCH ×2 (09:23→21:42)
[2020-09-15] MEDS: ELIQUIS 2.5 MG TABLET PO SCH ×2 (09:24→21:41)
[2020-09-15] MEDS: MAG-OX 400 PO SCH ×2 (09:24→21:42)
[2020-09-15] MEDS: ZYLOPRIM 300 MG PO SCH (09:24)
[2020-09-15] MEDS: Zaroxolyn 2.5 MG PO SCH (09:24)
[2020-09-15] MEDS: BUMEX 1 MG PO SCH ×3 (09:24→21:41)
[2020-09-15] MEDS: VITA-BEE WITH C PO SCH (09:24)
[2020-09-15] MEDS: SYNTHROID 125 MCG PO SCH (09:24)
[2020-09-15] MEDS: Toprol-Xl 25MG Tablets PO SCH (09:24)
[2020-09-15] MEDS: Flagyl 500 MG PO SCH ×3 (09:24→21:42)
[2020-09-15] MEDS: SYNTHROID 100 MCG PO SCH (09:24)
[2020-09-15] MEDS: NYSTOP POWDER 15 GM TP SCH ×2 (09:25→21:43)
[2020-09-15] MEDS: Protonix 40MG Tablet PO SCH (21:42)
[2020-09-15] MEDS: Flomax 0.4 MG PO SCH (21:42)
[2020-09-15] MEDS: NORCO 5/325 MG PO PRN (21:43)
[2020-09-16] MEDS: PATIENT OWN MEDICATION IH SCH ×4 (06:52→19:22)
[2020-09-16] MEDS: Glucophage 500 MG PO SCH ×2 (09:14→19:11)
[2020-09-16] MEDS: ELIQUIS 2.5 MG TABLET PO SCH ×2 (09:15→22:50)
[2020-09-16] MEDS: Levofloxacin 250MG Tablet PO SCH (09:15)
[2020-09-16] MEDS: Klor Con 10 MEQ PO SCH ×2 (09:15→22:51)
[2020-09-16] MEDS: Flagyl 500 MG PO SCH ×3 (09:15→22:51)
[2020-09-16] MEDS: SYNTHROID 125 MCG PO SCH (09:15)
[2020-09-16] MEDS: ZYLOPRIM 300 MG PO SCH (09:15)
[2020-09-16] MEDS: BUMEX 1 MG PO SCH ×3 (09:15→22:50)
[2020-09-16] MEDS: MAG-OX 400 PO SCH ×2 (09:15→22:51)
[2020-09-16] MEDS: Toprol-Xl 25MG Tablets PO SCH (09:15)
[2020-09-16] MEDS: Zaroxolyn 2.5 MG PO SCH (09:15)
[2020-09-16] MEDS: SYNTHROID 100 MCG PO SCH (09:15)
[2020-09-16] MEDS: NYSTOP POWDER 15 GM TP SCH ×2 (09:15→22:52)
[2020-09-16] MEDS: VITA-BEE WITH C PO SCH (09:16)
[2020-09-16] MEDS: Flomax 0.4 MG PO SCH (22:51)
[2020-09-16] MEDS: NORCO 5/325 MG PO PRN (22:52)
[2020-09-16] MEDS: Protonix 40MG Tablet PO SCH (22:52)
[2020-09-17] MEDS: PATIENT OWN MEDICATION IH SCH ×2 (07:02→10:55)
[2020-09-17 07:34] VITALS: BP 126/77; PULSE 95; O2SAT 96
[2020-09-17] MEDS: VITA-BEE WITH C PO SCH (09:22)
[2020-09-17] MEDS: Levofloxacin 250MG Tablet PO SCH (09:22)
[2020-09-17] MEDS: Flagyl 500 MG PO SCH (09:22)
[2020-09-17] MEDS: SYNTHROID 100 MCG PO SCH (09:22)
[2020-09-17] MEDS: Klor Con 10 MEQ PO SCH (09:22)
[2020-09-17] MEDS: BUMEX 1 MG PO SCH (09:23)
[2020-09-17] MEDS: ZYLOPRIM 300 MG PO SCH (09:23)
[2020-09-17] MEDS: Glucophage 500 MG PO SCH (09:23)
[2020-09-17] MEDS: MAG-OX 400 PO SCH (09:23)
[2020-09-17] MEDS: Zaroxolyn 2.5 MG PO SCH (09:23)
[2020-09-17] MEDS: Toprol-Xl 25MG Tablets PO SCH (09:23)
[2020-09-17] MEDS: SYNTHROID 125 MCG PO SCH (09:23)
[2020-09-17] MEDS: ELIQUIS 2.5 MG TABLET PO SCH (09:24)
[2020-09-17] MEDS: NYSTOP POWDER 15 GM TP SCH (09:24)
--- NOTE | 2020-09-18 10:25 | PCM.DS ---
Discharge Summary Date of Admission: 09/08/20 11:33 Admitting Physician: TRINH MINAYA Primary Care Provider: TRINH MINAYA Allergies Allergies ofloxacin [From Floxin] Allergy (Verified 09/05/20 04:35) Sulfa (Sulfonamide Antibiotics) [Sulfa(Sulfonamide Antibiotics)] Allergy (Verified 09/05/20 04:35) Hospital Summary - Hospital Course Hospital Course: Chief Complaint Diagnosis swing bed Allergies Allergy/AdvReac Type Severity Reaction Status Date / Time ofloxacin [From Floxin] Allergy Verified 09/05/20 04:35 Sulfa (Sulfonamide Allergy Verified 09/05/20 04:35 Antibiotics) [Sulfa(Sulfonamide Antibiotics)] Current Medications Discontinued Medications Generic Name Dose Route Start Last Admin Trade Name Freq PRN Reason Stop Dose Admin Hydrocodone Bitart/Acetaminophen 1 tab 09/08/20 11:41 09/12/20 22:53 Flint 5/325 Mg PO 09/13/20 11:40 1 tab Q6HPRN PRN Administration PAIN Hydrocodone Bitart/Acetaminophen 1 tab 09/13/20 11:42 09/16/20 22:52 Flint 5/325 Mg PO 09/18/20 11:41 1 tab Q6H PRN PRN Administration PAIN Allopurinol 300 mg 09/09/20 10:00 09/17/20 09:23 Zyloprim 300 Mg PO 10/09/20 09:59 300 mg DAILY NKECHI Administration Apixaban 2.5 mg 09/08/20 22:00 09/17/20 09:24 Eliquis 2.5 Mg Tablet PO 10/08/20 21:59 2.5 mg BID NKECHI Administration Bumetanide 1 mg 09/08/20 15:00 09/17/20 09:23 Bumex 1 Mg PO 10/08/20 14:59 1 mg TID NKECHI Administration Diclofenac Sodium 1 gm 09/08/20 11:41 09/13/20 22:32 Voltaren Gel TOP 10/08/20 11:40 1 gm TID PRN PRN Administration PAIN Hydromorphone HCl 0.5 mg 09/08/20 11:41 Hydromorphone 1 Mg/Ml Injection IV 09/13/20 11:40 Q4H PRN PRN PAIN Iron Sucrose 100 mg/ Sodium 105 mls @ 200 mls/hr 09/10/20 10:00 09/12/20 09:17 Chloride IV 09/12/20 10:32 200 mls/hr Q24H10 NKECHI Administration Sodium Chloride Confirm 09/12/20 09:06 Sodium Chloride 0.9% 100 Ml Ivpb Administered 09/12/20 09:07 Dose 100 mls @ ud IV .STK-MED ONE Insulin Human Regular 0 unit 09/08/20 11:41 09/12/20 12:22 Humulin R SQ 10/08/20 11:40 2 unit UD PRN Administration HYPERGLYCEMIA Levofloxacin 250 mg 09/09/20 10:00 09/17/20 09:22 Levofloxacin 250mg Tablet PO 10/09/20 09:59 250 mg DAILY NKECHI Administration Levothyroxine Sodium 125 mcg 09/09/20 10:00 09/17/20 09:23 Synthroid 125 Mcg PO 10/09/20 09:59 125 mcg DAILY NKECHI Administration Levothyroxine Sodium 100 mcg 09/09/20 10:00 09/17/20 09:22 Synthroid 100 Mcg PO 10/09/20 09:59 100 mcg DAILY NKECHI Administration Loperamide HCl 4 mg 09/10/20 12:23 09/10/20 12:39 Imodium 2 Mg PO 09/10/20 12:24 4 mg STAT ONE Administration Loperamide HCl 2 mg 09/11/20 08:48 09/12/20 20:09 Imodium 2 Mg PO 10/11/20 08:47 2 mg PRN PRN Administration DIARRHEA Magnesium Oxide 400 mg 09/08/20 22:00 09/17/20 09:23 Mag-Ox 400 PO 10/08/20 21:59 400 mg BID NKECHI Administration Metformin HCl 500 mg 09/08/20 17:00 09/17/20 09:23 Glucophage 500 Mg PO 10/08/20 16:59 500 mg BIDWM NKECHI Administration Metolazone 2.5 mg 09/09/20 10:00 09/17/20 09:23 Zaroxolyn 2.5 Mg PO 10/09/20 09:59 2.5 mg DAILY NKECHI Administration Metoprolol Succinate 25 mg 09/09/20 10:00 09/17/20 09:23 Toprol-Xl 25mg Tablets PO 10/09/20 09:59 25 mg DAILY NKECHI Administration Metronidazole 500 mg 09/08/20 15:00 09/17/20 09:22 Flagyl 500 Mg PO 10/08/20 14:59 500 mg TID NKECHI Administration Multivitamins 1 tab 09/09/20 10:00 09/17/20 09:22 Melissa-Bee With C PO 10/09/20 09:59 1 tab DAILY NKECHI Administration Nitroglycerin 0.4 mg 09/08/20 11:41 Nitrostat 0.4 Mg Tablet SL 10/08/20 11:40 Q5MIN PRN MR X 3 PRN CHEST PAIN Nystatin 1 gm 09/08/20 22:00 09/17/20 09:24 Nystop Powder 15 Gm TP 10/08/20 21:59 1 gm BID NKECHI Administration Ondansetron HCl 4 mg 09/08/20 11:41 Zofran 4 Mg/2 Ml Vial IV 10/08/20 11:40 Q6H PRN PRN NAUSEA/VOMITING Ondansetron HCl 4 mg 09/09/20 14:09 09/09/20 14:21 Zofran Odt 4 Mg PO 10/09/20 14:08 4 mg Q6H PRN PRN Administration NAUSEA/VOMITING Pantoprazole Sodium 40 mg 09/08/20 22:00 09/16/20 22:52 Protonix 40mg Tablet PO 10/08/20 21:59 40 mg HS NKECHI Administration Patient Own Medication 2 each 09/08/20 11:41 Patient Own Medication IH 10/08/20 11:40 Q4HPRN PRN SHORTNESS OF BREATH/WHEEZING Patient Own Medication 2 each 09/08/20 15:00 09/17/20 10:55 Patient Own Medication IH 10/08/20 14:59 Not Given QIDRT NKECHI Potassium Chloride 30 meq 09/08/20 22:00 09/17/20 09:22 Klor Con 10 Meq PO 10/08/20 21:59 30 meq BID NKECHI Administration Tamsulosin HCl 0.4 mg 09/08/20 22:00 09/16/20 22:51 Flomax 0.4 Mg PO 10/08/20 21:59 0.4 mg HS NKECHI Administration Tuberculin PPD 5 unit 09/09/20 10:00 09/09/20 08:35 Aplisol ID 09/09/20 10:01 5 unit ONCE ONE Administration Intake & Output (Last 24 hours) 09/15/20 09/16/20 09/17/20 09/18/20 11:59 11:59 11:59 11:59 Intake Total 440 660 720 Balance 440 660 720 Laboratory Results (Last 24 hours) 09/17/20 11:35 POC Glucometer 121 H Orders (Last 24 hours) Category Date Time Status POCT GLUCOSE Stat Lab 09/17/20 11:35 Completed Patient Care Notes (Last 24 hours) 09/17/20 13:42 Nutrition Note by Annamaria Gan F/u Note: Heart healthy diet with prostat and boost con't with 50-75% po intake. adm weight 73.3kg; current weight 74.9kg. no recent labs available. goal of po > =75% not met consistently; goal of glu wnl not met. Note pt to be d/c'd. Recommend to con't with current diet and goals. AMRIT LyonsCD Initialized on 09/17/20 13:42 - END OF NOTE 09/17/20 12:27 SBAR Note by Ember Lr SITUATION I am calling about CECY OMALLEY the patient's code status is Full Code The problem I am calling about is: Spoke with Dr. Minaya regarding patient being discharged and if he wanted any home meds changed and if he wanted her sent home on norco or an antibiotic. He stated no changes to home meds and to not send her with norco or an antibiotic ASSESSMENT RECOMMENDATION Physician notified at 1227 New Orders received: Diagnois, Code Status Admitted From In-House Transfer Diagnosis swing bed Resucitation Status Full Code Intake and Output 24 Hours 09/17/20 09/18/20 06:59 06:59 Intake Total 720 Balance 720 Intake: Intake, Oral Amount 720 Other: Number of Voids 4 Number of Bowel Movements 3 Physical Assessment Anxiety Level None,at ease,Awake,Calm Mental Status Alert Patient Orientation Person,Place,Time Coma Scale Total 15 Breath Sounds [Anterior/ Clear,Diminished Posterior Bilateral Throughout ] Breath Sounds [Anterior/ Clear,Diminished Posterior] Bowel Sounds [All Quadrants] Present,Active Abdomen Description Soft,Round,Non-Tender Urine Appearance Not Assessed Urine Color Pale Skin Color Normal for Race Skin Temperature Warm Pain Scale (Last 24 Hours) Pain Intensity 4 Pain Intensity 4 PAST MEDICAL HISTORY Neurological History Peripheral Neuropathy ENT History No Pertinent History Endocrine Medical History Diabetes Type II,Hypothyroidism Respiratory History CHF,COPD,Emphysema,Pulmonary Embolism Cardiac History Arrhythmia,Congestive Heart Failure,Hypertension ,Myocardial Infarction ([place] GI Medical History Diverticulitis,Diverticulosis,Hemorrhoids,Hernia History Renal Disease Reproductive Disorders No Pertinent History Pyscho-Social History No Pertinent History Communicable Disease No Pertinent History Comment 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 , 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 , myelodysplastic syndrome, intestinal bleed Diabetic (Last 24 Hours) Time 07:15 Time 16:30 Lab Results (Last 24 Hours) 09/17/20 09/17/20 09/16/20 Range/Units 11:35 07:01 20:38 POC Glucometer 121 H 118 H 137 H (74 to 106) mg/dL 09/16/20 Range/Units 16:07 POC Glucometer 134 H (74 to 106) mg/dL Orders (Last 24 Hours) Category Date Time Status BMP Q14D Lab 09/21/20 04:00 Ordered Active Visit Medications Generic Name Dose Route Start Last Admin Trade Name Freq PRN Reason Stop Dose Admin Hydrocodone Bitart/Acetaminophen 1 tab 09/13/20 11:42 09/16/20 22:52 [place] 5/325 Mg PO 09/18/20 11:41 1 tab Q6H PRN PRN Administration PAIN Allopurinol 300 mg 09/09/20 10:00 09/17/20 09:23 Zyloprim 300 Mg PO 10/09/20 09:59 300 mg DAILY NKECHI Administration Apixaban 2.5 mg 09/08/20 22:00 09/17/20 09:24 Eliquis 2.5 Mg Tablet PO 10/08/20 21:59 2.5 mg BID NKECHI Administration Bumetanide 1 mg 09/08/20 15:00 09/17/20 09:23 Bumex 1 Mg PO 10/08/20 14:59 1 mg TID NKECHI Administration Diclofenac Sodium 1 gm 09/08/20 11:41 09/13/20 22:32 Voltaren Gel TOP 10/08/20 11:40 1 gm TID PRN PRN Administration PAIN Insulin Human Regular 0 unit 09/08/20 11:41 09/12/20 12:22 Humulin R SQ 10/08/20 11:40 2 unit UD PRN Administration HYPERGLYCEMIA Levofloxacin 250 mg 09/09/20 10:00 09/17/20 09:22 Levofloxacin 250mg Tablet PO 10/09/20 09:59 250 mg DAILY NKECHI Administration Levothyroxine Sodium 125 mcg 09/09/20 10:00 09/17/20 09:23 Synthroid 125 Mcg PO 10/09/20 09:59 125 mcg DAILY NKECHI Administration Levothyroxine Sodium 100 mcg 09/09/20 10:00 09/17/20 09:22 Synthroid 100 Mcg PO 10/09/20 09:59 100 mcg DAILY NKECHI Administration Loperamide HCl 2 mg 09/11/20 08:48 09/12/20 20:09 Imodium 2 Mg PO 10/11/20 08:47 2 mg PRN PRN Administration DIARRHEA Magnesium Oxide 400 mg 09/08/20 22:00 09/17/20 09:23 Mag-Ox 400 PO 10/08/20 21:59 400 mg BID NKECHI Administration Metformin HCl 500 mg 09/08/20 17:00 09/17/20 09:23 Glucophage 500 Mg PO 10/08/20 16:59 500 mg BIDWM NKECHI Administration Metolazone 2.5 mg 09/09/20 10:00 09/17/20 09:23 Zaroxolyn 2.5 Mg PO 10/09/20 09:59 2.5 mg DAILY NKECHI Administration Metoprolol Succinate 25 mg 09/09/20 10:00 09/17/20 09:23 Toprol-Xl 25mg Tablets PO 10/09/20 09:59 25 mg DAILY NKECHI Administration Metronidazole 500 mg 09/08/20 15:00 09/17/20 09:22 Flagyl 500 Mg PO 10/08/20 14:59 500 mg TID NKECHI Administration Multivitamins 1 tab 09/09/20 10:00 09/17/20 09:22 Melissa-Bee With C PO 10/09/20 09:59 1 tab DAILY NKECHI Administration Nitroglycerin 0.4 mg 09/08/20 11:41 Nitrostat 0.4 Mg Tablet SL 10/08/20 11:40 Q5MIN PRN MR X 3 PRN CHEST PAIN Nystatin 1 gm 09/08/20 22:00 09/17/20 09:24 Nystop Powder 15 Gm TP 10/08/20 21:59 1 gm BID NKECHI Administration Ondansetron HCl 4 mg 09/08/20 11:41 Zofran 4 Mg/2 Ml Vial IV 10/08/20 11:40 Q6H PRN PRN NAUSEA/VOMITING Ondansetron HCl 4 mg 09/09/20 14:09 09/09/20 14:21 Zofran Odt 4 Mg PO 10/09/20 14:08 4 mg Q6H PRN PRN Administration NAUSEA/VOMITING Pantoprazole Sodium 40 mg 09/08/20 22:00 09/16/20 22:52 Protonix 40mg Tablet PO 10/08/20 21:59 40 mg HS NKECHI Administration Patient Own Medication 2 each 09/08/20 11:41 Patient Own Medication IH 10/08/20 11:40 Q4HPRN PRN SHORTNESS OF BREATH/WHEEZING Patient Own Medication 2 each 09/08/20 15:00 09/17/20 10:55 Patient Own Medication IH 10/08/20 14:59 Not Given QIDRT NKECHI Potassium Chloride 30 meq 09/08/20 22:00 09/17/20 09:22 Klor Con 10 Meq PO 10/08/20 21:59 30 meq BID NKECHI Administration Tamsulosin HCl 0.4 mg 09/08/20 22:00 09/16/20 22:51 Flomax 0.4 Mg PO 10/08/20 21:59 0.4 mg HS NKECHI Administration Initialized on 09/17/20 12:27 - END OF NOTE - Vitals & Intake/Output Vital Signs: Vital Signs Temperature 98.9 F 09/17/20 07:34 Pulse Rate 95 H 09/17/20 07:34 Respiratory Rate 18 09/17/20 07:34 Blood Pressure 126/77 09/17/20 07:34 O2 Sat by Pulse Oximetry 96 09/17/20 07:34 Intake & Output: Intake & Output 09/15/20 09/16/20 09/17/20 09/18/20 11:59 11:59 11:59 11:59 Intake Total 440 660 720 Balance 440 660 720 - Lab Lab Results-Last 24 Hrs: Lab Results-Last 24 Hours 09/17/20 Range/Units 11:35 POC Glucometer 121 H (74 to 106) mg/dL Micro Results-Entire Visit: Accuchecks Date 09/16/20 Time 11:30 - Procedures and Test Procedures and Tests throughout Hospitalization: Therapy Orders & Screens 09/08/20 11:41 PT Eval & Treat (MD Order) ONCE Reason for Eval:: DECONDITIONING R/T ACUTE PYELOENEPHRITIS, DECUBITUS ULCERS Diagnosis: DECONDITIONING R/T ACUTE PYELONEPHRITIS, STAGE II & III DECUBITUS ULCERS Peak Expiratory Flow Rate ONCE Comment: Reason For Exam: Diagnosis: ACUTE PYELONEPHRITIS, DECUBITUS ULCERS Respiratory MDI QID Comment: PT'S HOME ALBUTEROL MDI QID AND Q4HPRN Diagnosis: ACUTE PYELONEPHRITIS, DECUBITUS ULCERS Respiratory Therapy Assessment DAILY Comment: Diagnosis: ACUTE PYELONEPHRITIS, DECUBITUS ULCERS 09/10/20 13:39 PT Clarification Order ROUTINE Comment: Physician Instructions: Reason For Exam: PT Clarification: PT. TO RX 5X/WK UNTIL D/C TO ADDRESS FUNCTIONAL MOBILITY AND GAIT TRAINING, THER EX, BALANCE ACTIVITIES, PT. ED. RE: SAFETY AWARENESS AND PRESSURE RELIEF FOR WOUND MG'T. PT WILL ALSO ADDRESS DECUBITUS CARE VIA CLEANSING/DEBRIDEMENT AND DRESSING MG'T ALL TO MAXIMIZE FUNCTIONAL POTENTIAL FOR SAFE RETURN HOME. Discharge Exam General Appearance: no apparent distress, alert Neurologic Exam: alert, oriented x 3, cooperative, normal mood/affect, nml cerebellar function, sensation nml, No motor deficits Eye Exam: PERRL, EOMI, eyes nml inspection Ears, Nose, Throat Exam: normal ENT inspection, pharynx normal, moist mucous membranes Neck Exam: normal inspection, non-tender, supple, full range of motion Respiratory Exam: normal breath sounds, lungs clear, No respiratory distress Cardiovascular Exam: regular rate/rhythm, normal heart sounds Gastrointestinal/Abdomen Exam: soft, No tenderness, No mass Pelvic Exam: deferred Rectal Exam: deferred Back Exam: normal inspection, normal range of motion, No CVA tenderness, No vertebral tenderness Extremity Exam: normal inspection, normal range of motion Skin Exam: normal color, warm, dry Final Diagnosis/Problem List - Final Discharge Diagnosis/Problem (1) Decubitus ulcer of back, stage 2 Status: Acute Assessment & Plan: improved Code(s): L89.102 - PRESSURE ULCER OF UNSPECIFIED PART OF BACK, STAGE 2 (2) Diabetic neuropathy associated with type 2 diabetes mellitus Status: Chronic Code(s): E11.40 - TYPE 2 DIABETES MELLITUS WITH DIABETIC NEUROPATHY, UNSP - Discharge Discharge Date: 09/17/20 Disposition: Home, Self-Care Condition: Stable Prescriptions: Continue Magnesium Oxide 400 mg [Mag-Ox 400] 400 mg PO BID Potassium Chloride [Klor-Con 10] 30 meq PO BID Bumetanide 1 mg [Bumex 1 mg] 1 mg PO TID Allopurinol 300 mg [Zyloprim 300 mg] 300 mg PO DAILY PANTOPRAZOLE 40 mg Tablet [Protonix 40MG Tablet] 40 mg PO HS Apixaban [Eliquis] 2.5 mg PO BID Metolazone 2.5 mg [Zaroxolyn 2.5 MG] 2.5 mg PO DAILY Levothyroxine Sodium [Synthroid] 25 mcg PO DAILY Levothyroxine Sodium [Synthroid] 200 mcg PO DAILY Nitroglycerin 0.4 mg Tablet [Nitrostat 0.4 MG Tablet] 0.4 mg SL Q5MIN PRN MR X 3 PRN PRN Reason: Chest Pain Vitamin B Complex [Super B-50 Complex] 1 each PO DAILY Metformin HCl 500 mg PO BID Hydrocodone/APAP 5-325 Tab^^^ [Flint 5-325 Tablet^^^] 1 tab PO Q6HPRN PRN #10 tablet MDD 6 PRN Reason: Pain metroNIDAZOLE [Flagyl] 500 mg PO TID Tamsulosin HCl 0.4 mg [Flomax 0.4 MG] 0.4 mg PO HS Metoprolol Succinate 25 mg PO DAILY Diclofenac Sodium Gel [Voltaren GEL] 1 gm TOP TID PRN Instructions: Wound Care (DC) Additional Instructions: PHYSICAL THERAPY RECOMMENDS PURCHASING A GEL CUSHION FOR CHAIR AT HOME TO PREVENT ANY FURTHER SKIN BREAKDOWN AND INCREASE COMFORT WHILE SITTING. Follow up with: Madison Grajeda [Physical Therapist] - 09/19/20 2:00 pm TRINH MINAYA MD [Primary Care Provider] - 09/24/20 1:30 pm (APPOINTMENT AT [facility]) Forms: Discharge Instructions
== END 2020-09-17 13:10 | disposition home or self-care (01) | DRG 593 ==
LOC: MED SURG 11:33
PROVIDERS: ADMIT General Practice; ATTEND General Practice
DX: L89.102 Pressure ulcer of unspecified part of back, stage 2 (principal); N39.0 Urinary tract infection, site not specified; E11.40 Type 2 diabetes mellitus with diabetic neuropathy, unspecified; I10 Essential (primary) hypertension; I48.91 Unspecified atrial fibrillation; E03.9 Hypothyroidism, unspecified; Z79.899 Other long term (current) drug therapy; Z79.01 Long term (current) use of anticoagulants; Z86.711 Personal history of pulmonary embolism
CPT/HCPCS: 82947; 94640; 94760; J1756; J1815; Q0162; 97110-GP; A9270-GY

== ENCOUNTER 2021-06-02 09:30 | Emergency (ER) | payer MEDICARE ==
[2021-06-02] MEDS ORDERED: Zofran 4 MG/2 ML VIAL IV ONE (10:13)
[2021-06-02] MEDS ORDERED: MORPHINE SULFATE 4 MG INJ IV ONE (10:13)
[2021-06-02] MEDS ORDERED: Zofran 4 MG/2 ML VIAL ONE (10:22)
[2021-06-02] MEDS ORDERED: MORPHINE SULFATE 4 MG INJ ONE (10:22)
[2021-06-02 10:41] LABS: Hematocrit 37.8 % (35-47); Mean Cell Volume 93.3 fl (78-100); Mean Corpuscular Hemoglobin 29.6 pg (26-32); Mean Corpuscular Hgb Concent. 31.7 g/dl (32-36); Mean Platelet Volume 9.8 fl (7.5-11.0); Platelet Count 373 K/mm3 (150-450); Red Blood Count 4.05 M/mm3 (4.1-5.4); Red Cell Distribution Width 17.4 % (11.5-14.0); White Blood Count 14.4 K/mm3 (4.0-10.5)
[2021-06-02 10:49] LABS: ALBUMIN 3.8 g/dL (3.5-5.0); ANION GAP 22.3 MEQ/L (5-15); BILIRUBIN,TOTAL 0.3 mg/dL (0.2-1.3); Calcium 10.1 mg/dL (8.4-10.2); Creatinine 1 1.87 mg/dL (0.52-1.04); EST GLOMERULAR FILTRATION RATE 27.4 ML/MIN; Potassium 3.9 mmol/L (3.5-5.1); Total Protein 7.5 g/dL (6.3-8.2)
[2021-06-02] MEDS ORDERED: Sodium Chloride 0.9% 500 ML 500 ML IV ONE ×2 (11:32→11:34)
[2021-06-02 12:01] LABS: Appearance SLIGHTLY CLOUDY (CLEAR); Bilirubin NEGATIVE (NEGATIVE); Blood NEGATIVE Ery/ul (0-5); Glucose NEGATIVE (NEGATIVE); Ketones NEGATIVE (NEGATIVE); Leukocyte Esterase NEGATIVE (NEGATIVE); Mucus SLIGHT /HPF (NEGATIVE); Nitrite NEGATIVE (NEGATIVE); Protein,Urine Dip NEGATIVE (Negative); Specific Gravity 1.015 (1.005-1.025); Urobilinogen NEGATIVE mg/dL (0-1)
[2021-06-02] MEDS ORDERED: Zosyn 2.25 GM 2.25 GM in Sodium Chloride 100ML MINI-BAG PLUS 100 ML IV ONE (12:12)
[2021-06-02] MEDS ORDERED: Zosyn 3.375 GM Vial IV ONE (13:02)
[2021-06-02] MEDS ORDERED: Sodium Chloride 100ML MINI-BAG PLUS 0 ML IV ONE (13:02)
--- NOTE | 2021-06-02 13:03 | ERPHSYRPT ---
- History of Present Illness Time Seen by Provider: 06/02/21 10:06 Source: patient, family Exam Limitations: no limitations Patient Subjective Stated Complaint: pt here for lower back pain for over a week now after twisting wrong. this is a chronic problem for her, she aslo states she is nauseated. nd took a zofram today Triage Nursing Assessment: pt alert, arrived per wc, resp easy, face mask in place, skin w/d/p. she has swelling to lower legs that is normal for her, pt yells out in pain with any movement, she states she is very nervous Physician History: 81 years old female with multiple medical problems including diabetes mellitus, congestive heart failure, atrial fibrillation on Eliquis, chronic back pain with urinary incontinence, ambulatory with walker at her baseline presented in the ER with 1 month history of progressively increasing low back pain limiting her mobility and excruciating pain for 1 week after she twisted in the way and felt a popping sound in her low back. Since then she is having severe constant pain in the low back without any numbness tingling or focal weakness in lower extrem ities. Because of pain she is hardly able to get up and ambulate. She is able to move both lower extremities. Denies any loss of bowel control although she does have loose stool for the last 3 to 4 days and have similar symptoms in the past with diverticulitis. She has chronic urinary incontinence Which is not any worse than usual. No fever or chills reported. Timing/Duration: week(s) (1), constant, worse Method of Injury: twisted Quality: sharp Back Pain Location: lumbar spine, paraspinous muscles Severity of Pain-Max: severe Severity of Pain-Current: moderate Modifying Factors: Improves With: immobilization, rest. Worsens With: movement Associated Symptoms: urinary incontinence, nausea, lower back pain, No loss of bowel control, No constipation, No vomiting, No light-headedness, No dizziness, No numbness in legs/feet, No tingling in legs/feet Previous symptoms: same symptoms as today Allergies/Adverse Reactions: ofloxacin [From Floxin] Allergy (Verified 06/02/21 09:52) Sulfa (Sulfonamide Antibiotics) [Sulfa(Sulfonamide Antibiotics)] Allergy (Verified 06/02/21 09:52) Home Medications: Allopurinol 300 mg [Zyloprim 300 mg] 300 mg PO DAILY 11/30/16 [History] Apixaban [Eliquis] 2.5 mg PO BID 11/30/16 [History] Bumetanide 1 mg [Bumex 1 mg] 1 mg PO TID 11/30/16 [History] Levothyroxine Sodium [Synthroid] 25 mcg PO DAILY 11/30/16 [History] Levothyroxine Sodium [Synthroid] 200 mcg PO DAILY 11/30/16 [History] Magnesium Oxide 400 mg [Mag-Ox 400] 400 mg PO BID 11/30/16 [History] Metolazone 2.5 mg [Zaroxolyn 2.5 MG] 2.5 mg PO DAILY 11/30/16 [History] PANTOPRAZOLE 40 mg Tablet [Protonix 40MG Tablet] 40 mg PO HS 11/30/16 [History] Potassium Chloride [Klor-Con 10] 30 meq PO BID 11/30/16 [History] Nitroglycerin 0.4 mg Tablet [Nitrostat 0.4 MG Tablet] 0.4 mg SL Q5MIN PRN MR X 3 PRN 05/21/17 [History] Vitamin B Complex [Super B-50 Complex] 1 each PO DAILY 05/21/17 [History] Metformin HCl 500 mg PO BID 04/24/18 [History] Diclofenac Sodium Gel [Voltaren GEL] 1 gm TOP TID PRN 09/05/20 [History] Metoprolol Succinate 25 mg PO DAILY 09/05/20 [History] Tamsulosin HCl 0.4 mg [Flomax 0.4 MG] 0.4 mg PO HS 09/05/20 [History] Hx Tetanus, Diphtheria Vaccination/Date Given: Yes Hx Influenza Vaccination/Date Given: Yes Hx Pneumococcal Vaccination/Date Given: Yes Immunizations Up to Date: Yes Travel Risk - International Travel Have you traveled outside of the country in past 3 weeks: No - Coronavirus Screening Are you exhibiting any of the following symptoms?: No Close contact with a COVID-19 positive Pt in past 14-21 Days: No - Vaccine Status Have you recieved a Covid-19 vaccination: Yes Industrial [employer]: Moderna - Vaccination Dates Date of 2cond Vaccination (if applicable): dec - Review of Systems Constitutional: No Symptoms Eyes: No Symptoms Ears, Nose, & Throat: No Symptoms Respiratory: No Symptoms Cardiac: No Symptoms Abdominal/Gastrointestinal: Nausea, Diarrhea Genitourinary Symptoms: Incontinence Musculoskeletal: Arthralgias, Back Pain Skin: No Symptoms Neurological: No Symptoms Endocrine: No Symptoms Hematologic/Lymphatic: No Symptoms Immunological/Allergic: No Symptoms - Past Medical History Pertinent Past Medical History: Yes Neurological History: Peripheral Neuropathy ENT History: No Pertinent History Cardiac History: Hypertension Respiratory History: COPD Endocrine Medical History: Diabetes Type II, Hypothyroidism Musculoskeletal History: Arthritis GI Medical History: Diverticulitis, Diverticulosis, Hemorrhoids, Hernia History: Renal Disease Psycho-Social History: No Pertinent History Female Reproductive Disorders: No Pertinent History Other Medical History: PE, ARRYTHMIA, RENAL DZ, DDD, RA, OA, MYELODSYPLASTIC SYNDROME. PSH: CARDIAC CATH, HYSTERECTOMY, LUMPECTOMY, BASAL AND SQUAMOUS CELL CA. - Past Surgical History Past Surgical History: Yes Neuro Surgical History: No Pertinent History Cardiac: Cardiac Catheterization Respiratory: No Pertinent History Gastrointestinal: No Pertinent History Genitourinary: No Pertinent History Musculoskeletal: No Pertinent History Female Surgical History: Hysterectomy, Lumpectomy Other Surgical History: breast tumor removed, tumor removed from back benign, 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, cauterization due to intestinal bleed - Social History Smoking Status: Never smoker Exposure to second hand smoke: No Drug Use: none Patient Lives Alone: No - Female History Hx Last Menstrual Period: post Hx Now: No - Nursing Vital Signs Nursing Vital Signs: Initial Vital Signs Temperature 97 F 06/02/21 09:43 Pulse Rate 120 H 06/02/21 09:43 Respiratory Rate 18 06/02/21 09:43 Blood Pressure 142/81 06/02/21 09:43 O2 Sat by Pulse Oximetry 99 06/02/21 09:43 Pain Scale Pain Intensity [Back] 10 Pain Intensity 10 - Physical Exam General Appearance: no apparent distress, alert Eye Exam: PERRL/EOMI, eyes nml inspection Ears, Nose, Throat Exam: normal ENT inspection, TMs normal, pharynx normal Neck Exam: normal inspection, non-tender, full range of motion Respiratory Exam: normal breath sounds, lungs clear Cardiovascular Exam: normal heart sounds, tachycardia Gastrointestinal Exam: soft, normal bowel sounds, tenderness (Minimal generalized), No guarding, No rebound Back Exam: vertebral tenderness (Lower lumbar), decreased range of motion, muscle spasm, point tenderness (Lumbar spinal and paraspinal), No normal range of motion Extremity Exam: normal inspection, normal range of motion, pelvis stable Neurologic Exam: alert, oriented x 3, cooperative, safety tech II-XII nml as tested, normal mood/affect, sensation nml, other (Symmetrical decreased reflexes 1+ patellar and ankle. Plantars downgoing bilaterally), No nml station & gait, No sensory deficit Skin Exam: normal color SpO2 Interpretation: normal SpO2: 99 O2 Delivery: Room Air Ordered Tests: Active Orders 24 hr Category Date Time Status IV Insertion STAT Care 06/02/21 10:13 Active NPO (ED) STAT Care 06/02/21 10:13 Active ABDOMEN AND PELVIS W/0 CONTRAS [CT] Stat Exams 06/02/21 10:14 Taken LUMBAR SPINE W/O [CT] Stat Exams 06/02/21 10:14 Taken CBC W DIFF Stat Lab 06/02/21 10:38 Completed CK (IN-HOUSE) [CK-Creatinine Phosphokinase] Stat Lab 06/02/21 10:38 Completed CMP Stat Lab 06/02/21 10:38 Completed LIPASE Stat Lab 06/02/21 10:38 Completed Manual Differential NC Stat Lab 06/02/21 10:38 Completed UA W/RFX UR CULTURE Stat Lab 06/02/21 11:20 Completed Medication Summary Discontinued Medications Generic Name Dose Route Start Last Admin Trade Name Freq PRN Reason Stop Dose Admin Sodium Chloride 500 mls @ 500 mls/hr 06/02/21 11:34 06/02/21 11:37 Sodium Chloride 0.9% 500 Ml IV 06/02/21 12:33 500 mls/hr .Q1H ONE Administration Sodium Chloride Confirm 06/02/21 11:32 Sodium Chloride 0.9% 500 Ml Administered 06/02/21 11:33 Dose 500 mls @ ud IV .STK-MED ONE Piperacillin Sod/Tazobactam 100 mls @ 200 mls/hr 06/02/21 12:12 Sod 2.25 gm/ Sodium Chloride IV 06/02/21 12:41 STAT ONE Morphine Sulfate 4 mg 06/02/21 10:13 06/02/21 10:24 Morphine Sulfate 4 Mg Inj IV 06/02/21 10:14 4 mg STAT ONE Administration Morphine Sulfate Confirm 06/02/21 10:22 Morphine Sulfate 4 Mg Inj Administered 06/02/21 10:23 Dose 4 mg .ROUTE .STK-MED ONE Ondansetron HCl 4 mg 06/02/21 10:13 06/02/21 10:23 Zofran 4 Mg/2 Ml Vial IV 06/02/21 10:14 4 mg STAT ONE Administration Ondansetron HCl Confirm 06/02/21 10:22 Zofran 4 Mg/2 Ml Vial Administered 06/02/21 10:23 Dose 4 mg .ROUTE .STK-MED ONE Lab/Rad Data: Laboratory Result Diagrams 06/02/21 10:38 06/02/21 10:38 Laboratory Results 06/02/21 06/02/21 06/02/21 Range/Units 11:20 10:38 10:38 WBC (4.0-10.5) K/mm3 RBC (4.1-5.4) M/mm3 Hgb (12.0-16.0) gm/dl Hct (35-47) % MCV (78-100) fl MCH (26-32) pg MCHC (32-36) g/dl RDW (11.5-14.0) % Plt Count (150-450) K/mm3 MPV (7.5-11.0) fl Sodium 139 (137-145) mmol/L Potassium 3.9 (3.5-5.1) mmol/L Chloride 98 (98-107) mmol/L Carbon Dioxide 22 (22-30) mmol/L Anion Gap 22.3 H (5-15) MEQ/L BUN 39 H (7-17) mg/dL Creatinine 1.87 H (0.52-1.04) mg/dL Estimated GFR 27.4 ML/MIN Glucose 165 H (74-106) mg/dL Calcium 10.1 (8.4-10.2) mg/dL Total Bilirubin 0.30 (0.2-1.3) mg/dL AST 25 (14-36) U/L ALT 12 (0-35) U/L Alkaline Phosphatase 163 H (38-126) U/L Creatine Kinase 27 L (30-135) U/L Serum Total Protein 7.5 (6.3-8.2) g/dL Albumin 3.8 (3.5-5.0) g/dL Lipase 107 (23-300) U/L Urine Color YELLOW (YELLOW) Urine Appearance SLIGHTLY CLOUDY (CLEAR) Urine pH 5.0 (5-6) Ur Specific [place] 1.015 (1.005-1.025) Urine Protein NEGATIVE (Negative) Urine Ketones NEGATIVE (NEGATIVE) Urine Blood NEGATIVE (0-5) Quentin/ul Urine Nitrite NEGATIVE (NEGATIVE) Urine Bilirubin NEGATIVE (NEGATIVE) Urine Urobilinogen NEGATIVE (0-1) mg/dL Ur Leukocyte Esterase NEGATIVE (NEGATIVE) Urine WBC (Auto) NONE (0-5) /HPF Urine RBC (Auto) NONE (0-2) /HPF U Hyaline Cast (Auto) 6-10 (0-2) /LPF U Epithel Cells (Auto) NONE (FEW) /HPF Urine Bacteria (Auto) NONE (NEGATIVE) /HPF Urine Mucus (Auto) SLIGHT (NEGATIVE) /HPF Urine Culture Reflexed ORDERED SEPARATELY (NO) Urine Glucose NEGATIVE (NEGATIVE) mg/dL 06/02/21 Range/Units 10:38 WBC 14.4 H (4.0-10.5) K/mm3 RBC 4.05 L (4.1-5.4) M/mm3 Hgb 12.0 (12.0-16.0) gm/dl Hct 37.8 (35-47) % MCV 93.3 (78-100) fl MCH 29.6 (26-32) pg MCHC 31.7 L (32-36) g/dl RDW 17.4 H (11.5-14.0) % Plt Count 373 (150-450) K/mm3 MPV 9.8 (7.5-11.0) fl Sodium (137-145) mmol/L Potassium (3.5-5.1) mmol/L Chloride (98-107) mmol/L Carbon Dioxide (22-30) mmol/L Anion Gap (5-15) MEQ/L BUN (7-17) mg/dL Creatinine (0.52-1.04) mg/dL Estimated GFR ML/MIN Glucose (74-106) mg/dL Calcium (8.4-10.2) mg/dL Total Bilirubin (0.2-1.3) mg/dL AST (14-36) U/L ALT (0-35) U/L Alkaline Phosphatase (38-126) U/L Creatine Kinase (30-135) U/L Serum Total Protein (6.3-8.2) g/dL Albumin (3.5-5.0) g/dL Lipase (23-300) U/L Urine Color (YELLOW) Urine Appearance (CLEAR) Urine pH (5-6) Ur Specific [place] (1.005-1.025) Urine Protein (Negative) Urine Ketones (NEGATIVE) Urine Blood (0-5) Quentin/ul Urine Nitrite (NEGATIVE) Urine Bilirubin (NEGATIVE) Urine Urobilinogen (0-1) mg/dL Ur Leukocyte Esterase (NEGATIVE) Urine WBC (Auto) (0-5) /HPF Urine RBC (Auto) (0-2) /HPF U Hyaline Cast (Auto) (0-2) /LPF U Epithel Cells (Auto) (FEW) /HPF Urine Bacteria (Auto) (NEGATIVE) /HPF Urine Mucus (Auto) (NEGATIVE) /HPF Urine Culture Reflexed (NO) Urine Glucose (NEGATIVE) mg/dL - Progress Progress: improved Progress Note: 06/02/21 12:34 She is given morphine and a small fluid bolus for symptomatic relief. Work-up showed white count of 14, mild worsening of acute on chronic renal failure. No UTI. CT lumbar spine showed L3 and L5 acute/subacute superior endplate fractures with slight distraction of L3 and mild retropulsion of L5. Also has bilateral L5 pedicle nondisplaced fracture. Patient is neurologically intact in lower extremities. She has a chronic urinary incontinence. No stool incontinence. She does have element of colitis and given a dose of Zosyn. Discussed with Dr. Hyde who has discussed with Dr. Barber neurosurgery and patient is accepted for transfer. Plan discussed with patient and family who understand and agree with it. Discussed with Dr.: Other Counseled pt/family regarding: lab results, diagnosis, rad results - Departure Departure Disposition: Transfer Clinical Impression: Colitis Lumbar vertebral fracture Qualifiers: Encounter type: initial encounter Lumbar vertebra fracture level: unspecified lumbar vertebra Fracture type: closed Fracture morphology: unspecified fracture morphology Qualified Code(s): S32.009A - Unspecified fracture of unspecified lumbar vertebra, initial encounter for closed fracture Condition: Stable Critical Care Time: No Referrals: TRINH MINAYA MD [Primary Care Provider] -
[2021-06-02 14:32] LABS: ANISOCYTOSIS 1+; BAND 1 % (0.0-2.0); Eosinophil 2 % (0.00-3.0); Lymphocytes 23 % (24-44); Monocyte 1 % (0.0-12.0); Neutrophils 73 % (36.0-66.0); Platelet Estimate NORMAL (NORMAL); Total Cells Counted 100
[2021-06-02 14:51] VITALS: BP 143/71; PULSE 70; O2SAT 98
--- NOTE | 2021-06-02 21:24 | XRAY ---
Indication: Abdomen pain. Hematuria. UTI. History of kidney stones. Multiple contiguous axial images obtained through the abdomen and pelvis without contrast using renal stone protocol. Comparison: September 05, 2020. Lung bases demonstrates minimal bibasilar fibrosis/scarring. No infiltrate or effusion. Heart not enlarged. No renal calculus or evidence for obstructive uropathy in either system. Stable bilateral renal cysts, tiny left adrenal adenoma, calcified splenic granuloma, and hysterectomy. No free fluid/air. Noncontrasted stomach and bowel loops nonobstructed again with diffuse scattered colonic diverticulosis. Remaining liver, gallbladder, pancreas, spleen, adrenal glands, kidneys, ureters, and bladder are unremarkable for noncontrast exam. Stable heavy scattered vascular calcifications. No AAA. Osseous structures demonstrates new L3 and L5 compression fractures with approximately 25% height loss. Also new nondisplaced bilateral L5 pedicle fractures. Grossly stable osteopenia, multilevel thoracolumbar degenerative spondylosis, and multilevel remote thoracolumbar compression fractures. Impression: 1. Continued negative renal calculus or evidence for obstructive uropathy. 2. New L3 and L5 compression fractures. 3. Again incidental diffuse colonic diverticulosis, bilateral renal cysts, left adrenal adenoma, and chronic bony findings. Comment: Preliminary interpretation made by [facility]. No critical discrepancy.
--- NOTE | 2021-06-02 21:26 | XRAY ---
Indication: Pain. Fracture. Subluxation. Multiple contiguous axial images obtained through the lumbar spine. Sagittal and coronal reformatted images obtained. Comparison: CT abdomen/pelvis September 05, 2020. Osseous structures demonstrates new L3 and L5 compression fractures with approximately 25% height loss. No spinal canal or foraminal encroachment. Also new nondisplaced bilateral L5 pedicle fractures. Grossly stable osteopenia, multilevel thoracolumbar degenerative spondylosis, and multilevel remote thoracolumbar compression fractures. CT abdomen/pelvis reported separately. Impression: 1. New L3 and L5 compression fractures. 2. Again incidental osteopenia, multilevel degenerative spondylosis, and multilevel compression fractures. Comment: Preliminary interpretation made by [facility]. No critical discrepancy.
== END 2021-06-02 14:52 | disposition short-term general hospital (02) ==
LOC: ED 09:30
DX: S32.009A Unspecified fracture of unspecified lumbar vertebra, initial encounter for closed fracture (principal); M54.5 Low back pain; X50.9XXA Other and unspecified overexertion or strenuous movements or postures, initial encounter; Y93.89 Activity, other specified; Y92.89 Other specified places as the place of occurrence of the external cause; I50.9 Heart failure, unspecified; E11.9 Type 2 diabetes mellitus without complications; I48.91 Unspecified atrial fibrillation; Z79.01 Long term (current) use of anticoagulants; R32 Unspecified urinary incontinence; Z79.899 Other long term (current) drug therapy; E03.9 Hypothyroidism, unspecified; G62.9 Polyneuropathy, unspecified
CPT/HCPCS: 36000; 36415; 72131; 74176; 80053; 81001; 82550; 83690; 85025; 96374; 96375; 99285; J2270; J2405; J2543

== ENCOUNTER 2021-08-19 14:01 | Inpatient (IN) | payer MEDICARE ==
[2021-08-19] MEDS ORDERED: LOPRESSOR 5 MG/5 ML INJECTION IV ONE ×2 (14:22→14:36)
[2021-08-19 14:32] LABS: Absolute Neutrophil Ct (ANC) 15.51 (1.4-6.9); BASOPHIL % 0.2 % (0.0-0.4); Basophil (Absolute #) 0.03 (0-0.4); Eosinophil % 0.1 % (0.00-5.0); Eosinophil (Absolute #) 0.02 (0-0.5); Hematocrit 36.8 % (35-47); Hemoglobin 11.8 gm/dl (12.0-16.0); Lymphocyte (Absolute #) 1.78 (1.0-4.6); Lymphocytes % 9.8 % (24.0-44.0); Mean Cell Volume 95.8 fl (78-100); Mean Corpuscular Hemoglobin 30.7 pg (26-32); Mean Corpuscular Hgb Concent. 32.1 g/dl (32-36); Mean Platelet Volume 8.8 fl (7.5-11.0); Monocyte (Absolute #) 0.88 (0.0-1.3); Monocytes % 4.8 % (0.0-12.0); Neutrophil % 85.1 % (36.0-66.0); Platelet Count 551 K/mm3 (150-450); Red Blood Count 3.84 M/mm3 (4.1-5.4); Red Cell Distribution Width 19.8 % (11.5-14.0); White Blood Count 18.2 K/mm3 (4.0-10.5)
[2021-08-19 14:39] LABS: INR 1.28 (0.8-3.0); PROTIME 15.1 SECONDS (9.4-12.5)
[2021-08-19 14:42] LABS: PTT 38.1 SECONDS (25.1-36.5)
--- NOTE | 2021-08-19 14:55 | XRAY ---
Indication: Tachycardia. Comparison: December 17, 2017. Portable chest remains clear again with a few incidental calcified granulomas. Heart not enlarged for AP portable technique. Bony thorax intact again with mild osteopenia and degenerative changes. Impression: Continued nonacute chest with chronic features.
--- NOTE | 2021-08-19 15:00 | ERPHSYRPT ---
- History of Present Illness Source: patient, EMS Exam Limitations: other (Very poor historian) Patient Subjective Stated Complaint: pt reports she was trying to get into the car to attend a doctors appointment today r/t some urinary symptoms that she believes is a UTI, states that she was having difficulty getting into the car r/t chronic back pain from fractured vertebrae and felt her heart racing and states she had no energy all of the sudden, pt states her daughter called for help Triage Nursing Assessment: pt is aox3, pupils perrl, afebrile, resps easy and non labored, cap refill < 3 seconds, pt radial pulses strong and equal, pt is tachycardic, heart sounds are strong and regular, pt skin is loose warm dry. Physician History: 81 yo wf who is a very poor historian was on her way to Dr. Green's office for dysuria/lumbar pain when she got stuck getting into her car, so EMS was called. HR in the 150's, so pt brought into the ER. Pt denies CP/dyspnea/diaphoresis/N/V/D/melena/hematochezia/Fever. She states that she had lumbar surgery 6 wks ago. Timing/Duration: other (Several days) Method of Injury: other (Chronic lumbar pain) Quality: sharp Back Pain Location: lumbar spine Severity of Pain-Max: moderate Severity of Pain-Current: moderate Modifying Factors: Improves With: movement Associated Symptoms: weakness, lower back pain, No fever, No chills, No sweating, No urinary incontinence, No loss of bowel control, No constipation, No nausea, No vomiting, No problems urinating, No light-headedness, No dizziness, No numbness in legs/feet, No sensory/motor loss, No tingling in legs/feet, No muscle spasms Previous symptoms: same symptoms as today Allergies/Adverse Reactions: ofloxacin [From Floxin] Allergy (Verified 08/19/21 14:28) Sulfa (Sulfonamide Antibiotics) [Sulfa(Sulfonamide Antibiotics)] Allergy (Verified 08/19/21 14:28) Home Medications: Allopurinol 300 mg [Zyloprim 300 mg] 300 mg PO DAILY 11/30/16 [History] Apixaban [Eliquis] 2.5 mg PO BID 11/30/16 [History] Bumetanide 1 mg [Bumex 1 mg] 2 mg PO TID 11/30/16 [History] Levothyroxine Sodium [Synthroid] 25 mcg PO DAILY 11/30/16 [History] Levothyroxine Sodium [Synthroid] 200 mcg PO DAILY 11/30/16 [History] Magnesium Oxide 400 mg [Mag-Ox 400] 400 mg PO BID 11/30/16 [History] Metolazone 2.5 mg [Zaroxolyn 2.5 MG] 2.5 mg PO DAILY 11/30/16 [History] Potassium Chloride [Klor-Con 10] 30 meq PO BID 11/30/16 [History] Nitroglycerin 0.4 mg Tablet [Nitrostat 0.4 MG Tablet] 0.4 mg SL Q5MIN PRN MR X 3 PRN 05/21/17 [History] Vitamin B Complex [Super B-50 Complex] 1 cap PO DAILY 05/21/17 [History] Metformin HCl 500 mg PO BID 04/24/18 [History] Diclofenac Sodium Gel [Voltaren GEL] 1 gm TOP TID PRN 09/05/20 [History] Metoprolol Succinate 50 mg PO DAILY 09/05/20 [History] Tamsulosin HCl 0.4 mg [Flomax 0.4 MG] 0.4 mg PO DAILY 09/05/20 [History] Pantoprazole Sodium [Protonix] 40 mg PO DAILY 08/19/21 [History] Hx Tetanus, Diphtheria Vaccination/Date Given: Yes Hx Influenza Vaccination/Date Given: Yes Hx Pneumococcal Vaccination/Date Given: Yes Immunizations Up to Date: Yes Travel Risk - International Travel Have you traveled outside of the country in past 3 weeks: No - Coronavirus Screening Are you exhibiting any of the following symptoms?: No Close contact with a COVID-19 positive Pt in past 14-21 Days: No - Vaccine Status Have you recieved a Covid-19 vaccination: Yes [employer]: Moderna - Vaccination Dates Date of 2cond Vaccination (if applicable): unk - Review of Systems Constitutional: No Symptoms, Fatigue, Lethargy Eyes: No Symptoms Ears, Nose, & Throat: No Symptoms Respiratory: No Symptoms Cardiac: No Symptoms Abdominal/Gastrointestinal: No Symptoms Genitourinary Symptoms: No Symptoms, Dysuria Musculoskeletal: No Symptoms Skin: No Symptoms Neurological: No Symptoms Psychological: No Symptoms Endocrine: No Symptoms Hematologic/Lymphatic: No Symptoms Immunological/Allergic: No Symptoms - Past Medical History Pertinent Past Medical History: Yes Neurological History: Peripheral Neuropathy ENT History: No Pertinent History Cardiac History: Hypertension Respiratory History: COPD Endocrine Medical History: Diabetes Type II, Hypothyroidism Musculoskeletal History: Arthritis GI Medical History: Diverticulitis, Diverticulosis, Hemorrhoids, Hernia History: Renal Disease Psycho-Social History: No Pertinent History Female Reproductive Disorders: No Pertinent History Other Medical History: PE, ARRYTHMIA, RENAL DZ, DDD, RA, OA, MYELODSYPLASTIC SYNDROME. PSH: CARDIAC CATH, HYSTERECTOMY, LUMPECTOMY, BASAL AND SQUAMOUS CELL CA. - Past Surgical History Past Surgical History: Yes Neuro Surgical History: No Pertinent History Cardiac: Cardiac Catheterization Respiratory: No Pertinent History Gastrointestinal: No Pertinent History Genitourinary: No Pertinent History Musculoskeletal: No Pertinent History Female Surgical History: Hysterectomy, Lumpectomy Other Surgical History: breast tumor removed, tumor removed from back benign, 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, cauterization due to intestinal bleed - Social History Smoking Status: Never smoker Exposure to second hand smoke: No Drug Use: none Patient Lives Alone: No Significant Family History: no pertinent family hx - Nursing Vital Signs Nursing Vital Signs: Initial Vital Signs Temperature 97.9 F 08/19/21 14:08 Pulse Rate 143 H 08/19/21 14:08 Respiratory Rate 28 H 08/19/21 14:08 Blood Pressure 146/76 08/19/21 14:08 O2 Sat by Pulse Oximetry 99 08/19/21 14:08 Pain Scale Pain Intensity 8 Tachy - Physical Exam General Appearance: no apparent distress, anxiety Eye Exam: PERRL/EOMI, eyes nml inspection Ears, Nose, Throat Exam: normal ENT inspection, TMs normal, pharynx normal, moist mucous membranes Neck Exam: normal inspection, non-tender, supple, full range of motion, No meningismus Respiratory Exam: normal breath sounds, lungs clear, airway intact Cardiovascular Exam: tachycardia, capillary refill <2 sec Gastrointestinal Exam: soft, normal bowel sounds Back Exam: normal inspection, normal range of motion Extremity Exam: normal inspection, normal range of motion Neurologic Exam: alert, oriented x 3, cooperative, handle rounder operator II-XII nml as tested, normal mood/affect Skin Exam: normal color, warm, dry Lymphatic Exam: No adenopathy SpO2 Interpretation: normal SpO2: 99 O2 Delivery: Room Air - Course Nursing assessment & vital signs reviewed: Yes Ordered Tests: Active Orders 24 hr Category Date Time Status EKG-ER Only STAT Care 08/19/21 14:21 Completed Heart-Healthy Diet Diet 08/19/21 Breakfast Active CHEST 1 VIEW (PORTABLE) Stat Exams 08/19/21 14:21 Completed BLOOD CULTURE Stat Lab 08/19/21 16:52 Received CBC W DIFF AM.LAB Lab 08/20/21 04:00 Ordered CBC W DIFF Stat Lab 08/19/21 14:15 Completed CMP AM.LAB Lab 08/20/21 04:00 Ordered CULTURE,URINE Stat Lab 08/19/21 15:50 Received Lactic Acid AM.LAB Lab 08/20/21 04:00 Ordered Lactic Acid Stat Lab 08/19/21 14:36 Completed Manual Differential NC Stat Lab 08/19/21 14:15 Completed PROTIME WITH INR Stat Lab 08/19/21 14:15 Completed PTT Stat Lab 08/19/21 14:15 Completed TROPONIN Q3H Lab 08/19/21 17:28 Completed TROPONIN Q3H Lab 08/19/21 20:46 Received TROPONIN Q3H Lab 08/19/21 23:30 Ordered TROPONIN Q3H Lab 08/20/21 02:30 Ordered UA W/RFX UR CULTURE Stat Lab 08/19/21 15:50 Completed Transfer Order Routine Transfer 08/19/21 Completed Medication Summary Generic Name Dose Route Start Last Admin Trade Name Freq PRN Reason Stop Dose Admin Hydrocodone Bitart/Acetaminophen 1 tab 08/19/21 21:05 [place] 5/325 Mg PO 08/24/21 21:04 Q6H PRN PRN PAIN Apixaban 2.5 mg 08/19/21 22:00 Eliquis 2.5 Mg Tablet PO 09/18/21 21:59 BID NKECHI Bumetanide 2 mg 08/19/21 22:00 Bumex 1 Mg PO 09/18/21 21:59 TID NKECHI Diclofenac Sodium 1 gm 08/19/21 21:15 Voltaren Gel TOP 09/18/21 21:14 TID PRN NKECHI Sodium Chloride 1,000 mls @ 100 mls/hr 08/19/21 17:00 Sodium Chloride 0.9% 1000 Ml IV 09/18/21 16:59 .Q10H NKECHI Piperacillin Sod/Tazobactam 100 mls @ 200 mls/hr 08/20/21 00:00 Sod 3.375 gm/ Sodium Chloride IV 08/23/21 00:00 Q8H NKECHI Magnesium Oxide 400 mg 08/19/21 22:00 Mag-Ox 400 PO 09/18/21 21:59 BID NKECHI Metformin HCl 500 mg 08/20/21 08:00 Glucophage 500 Mg PO 09/19/21 07:59 BIDWM NKECHI Nitroglycerin 0.4 mg 08/19/21 21:06 Nitrostat 0.4 Mg Tablet SL 09/18/21 21:05 Q5MIN PRN MR X 3 PRN CHEST PAIN Ondansetron HCl 4 mg 08/19/21 17:00 Zofran 4 Mg/2 Ml Vial IV 09/18/21 16:59 Q6H PRN PRN NAUSEA/VOMITING Pantoprazole Sodium 40 mg 08/20/21 10:00 Protonix 40 Mg Iv IV 09/19/21 09:59 Q24H10 NKECHI Potassium Chloride 30 meq 08/19/21 22:00 Klor Con 10 Meq PO 09/18/21 21:59 BID NKECHI Discontinued Medications Generic Name Dose Route Start Last Admin Trade Name Freq PRN Reason Stop Dose Admin Sodium Chloride 1,000 mls @ 999 mls/hr 08/19/21 16:22 08/19/21 17:49 Sodium Chloride 0.9% 1000 Ml IV 08/19/21 17:22 Infused .Q1H1M STA Infusion Piperacillin Sod/Tazobactam 100 mls @ 200 mls/hr 08/19/21 16:22 08/19/21 16:38 Sod 3.375 gm/ Sodium Chloride IV 08/19/21 16:51 200 mls/hr STAT ONE Administration Sodium Chloride Confirm 08/19/21 16:28 Sodium Chloride 0.9% 1000 Ml Administered 08/19/21 16:29 Dose 1,000 mls @ ud .ROUTE .STK-MED ONE Sodium Chloride Confirm 08/19/21 16:30 Sodium Chloride 100ml Mini-Bag Plus Administered 08/19/21 16:31 Dose 100 mls @ ud IV .STK-MED ONE Piperacillin Sod/Tazobactam 100 mls @ 200 mls/hr 08/19/21 18:00 08/19/21 19:27 Sod 3.375 gm/ Sodium Chloride IV 08/22/21 17:59 Not Given Q6HT NKECHI Sodium Chloride 1,000 mls @ 999 mls/hr 08/19/21 17:07 08/19/21 19:28 Sodium Chloride 0.9% 1000 Ml IV 08/19/21 18:07 Not Given .Q1H1M STA Metoprolol Tartrate 5 mg 08/19/21 14:22 08/19/21 14:37 Lopressor 5 Mg/5 Ml Injection IV 08/19/21 14:23 5 mg STAT ONE Administration Metoprolol Tartrate Confirm 08/19/21 14:36 Lopressor 5 Mg/5 Ml Injection Administered 08/19/21 14:37 Dose 5 mg IV .STK-MED ONE Piperacillin Sod/Tazobactam Sod Confirm 08/19/21 16:28 Zosyn 3.375 Gm Vial Administered 08/19/21 16:29 Dose 3.375 gm IV .STK-MED ONE Piperacillin Sod/Tazobactam Sod Confirm 08/19/21 16:30 Zosyn 3.375 Gm Vial Administered 08/19/21 16:31 Dose 3.375 gm IV .STK-MED ONE Lab/Rad Data: Laboratory Result Diagrams 08/19/21 14:15 08/19/21 14:15 Laboratory Results 08/19/21 08/19/21 08/19/21 Range/Units 17:28 17:02 15:50 WBC (4.0-10.5) K/mm3 RBC (4.1-5.4) M/mm3 Hgb (12.0-16.0) gm/dl Hct (35-47) % MCV (78-100) fl MCH (26-32) pg MCHC (32-36) g/dl RDW (11.5-14.0) % Plt Count (150-450) K/mm3 MPV (7.5-11.0) fl Gran % (36.0-66.0) % Eos # (Auto) (0-0.5) Absolute Lymphs (auto) (1.0-4.6) Absolute Monos (auto) (0.0-1.3) Lymphocytes % (24.0-44.0) % Monocytes % (0.0-12.0) % Eosinophils % (0.00-5.0) % Basophils % (0.0-0.4) % Absolute Granulocytes (1.4-6.9) Segmented Neutrophils (36.0-66.0) % Band Neutrophils (0.0-2.0) % Lymphocytes (Manual) (24-44) % Basophils # (0-0.4) Toxic Granulation Platelet Estimate (NORMAL) RBC Morphology Anisocytosis PT (9.4-12.5) SECONDS INR (0.8-3.0) APTT (25.1-36.5) SECONDS Sodium Direct (138-146) mmol/L Potassium (3.5-4.9) mmol/L Chloride (98-109) mmol/L Carbon Dioxide (24-29) mmol/L Venous BUN (8-26) mg/dL Creatinine (0.6-1.3) mg/dL Glucose (70-105) mg/dL Lactic Acid (0.4-2.0) Ionized Calcium (1.12-1.32) mmol/L Troponin (0.00-0.03) ng/mL Troponin I < 0.012 (0.000-0.034) ng/mL Urine Color DARY (YELLOW) Urine Appearance CLOUDY (CLEAR) Urine pH 5.0 (5-6) Ur Specific [place] 1.014 (1.005-1.025) Urine Protein 30 (Negative) Urine Ketones TRACE (NEGATIVE) Urine Blood SMALL (0-5) Quentin/ul Urine Nitrite POSITIVE (NEGATIVE) Urine Bilirubin NEGATIVE (NEGATIVE) Urine Urobilinogen NEGATIVE (0-1) mg/dL Ur Leukocyte Esterase LARGE (NEGATIVE) Urine WBC (Auto) >100 (0-5) /HPF Urine RBC (Auto) 6-10 (0-2) /HPF U Hyaline Cast (Auto) 11-25 (0-2) /LPF U Epithel Cells (Auto) NONE (FEW) /HPF Urine Bacteria (Auto) FEW (NEGATIVE) /HPF Urine Mucus (Auto) SLIGHT (NEGATIVE) /HPF Urine Culture Reflexed YES (NO) Urine Glucose NEGATIVE (NEGATIVE) mg/dL SARS-CoV-2 (PCR) NEGATIVE (NEGATIVE) 08/19/21 08/19/21 08/19/21 Range/Units 14:36 14:15 14:15 WBC (4.0-10.5) K/mm3 RBC (4.1-5.4) M/mm3 Hgb (12.0-16.0) gm/dl Hct (35-47) % MCV (78-100) fl MCH (26-32) pg MCHC (32-36) g/dl RDW (11.5-14.0) % Plt Count (150-450) K/mm3 MPV (7.5-11.0) fl Gran % (36.0-66.0) % Eos # (Auto) (0-0.5) Absolute Lymphs (auto) (1.0-4.6) Absolute Monos (auto) (0.0-1.3) Lymphocytes % (24.0-44.0) % Monocytes % (0.0-12.0) % Eosinophils % (0.00-5.0) % Basophils % (0.0-0.4) % Absolute Granulocytes (1.4-6.9) Segmented Neutrophils (36.0-66.0) % Band Neutrophils (0.0-2.0) % Lymphocytes (Manual) (24-44) % Basophils # (0-0.4) Toxic Granulation Platelet Estimate (NORMAL) RBC Morphology Anisocytosis PT (9.4-12.5) SECONDS INR (0.8-3.0) APTT (25.1-36.5) SECONDS Sodium Direct 133 L (138-146) mmol/L Potassium 4.3 (3.5-4.9) mmol/L Chloride 100 (98-109) mmol/L Carbon Dioxide 12 L (24-29) mmol/L Venous BUN 44 H (8-26) mg/dL Creatinine 2.7 H (0.6-1.3) mg/dL Glucose 176 H (70-105) mg/dL Lactic Acid 6.8 H (0.4-2.0) Ionized Calcium 1.16 (1.12-1.32) mmol/L Troponin 0.01 (0.00-0.03) ng/mL Troponin I (0.000-0.034) ng/mL Urine Color (YELLOW) Urine Appearance (CLEAR) Urine pH (5-6) Ur Specific [place] (1.005-1.025) Urine Protein (Negative) Urine Ketones (NEGATIVE) Urine Blood (0-5) Quentin/ul Urine Nitrite (NEGATIVE) Urine Bilirubin (NEGATIVE) Urine Urobilinogen (0-1) mg/dL Ur Leukocyte Esterase (NEGATIVE) Urine WBC (Auto) (0-5) /HPF Urine RBC (Auto) (0-2) /HPF U Hyaline Cast (Auto) (0-2) /LPF U Epithel Cells (Auto) (FEW) /HPF Urine Bacteria (Auto) (NEGATIVE) /HPF Urine Mucus (Auto) (NEGATIVE) /HPF Urine Culture Reflexed (NO) Urine Glucose (NEGATIVE) mg/dL SARS-CoV-2 (PCR) (NEGATIVE) 08/19/21 08/19/21 Range/Units 14:15 14:15 WBC 18.2 H (4.0-10.5) K/mm3 RBC 3.84 L (4.1-5.4) M/mm3 Hgb 11.8 L (12.0-16.0) gm/dl Hct 36.8 (35-47) % MCV 95.8 (78-100) fl MCH 30.7 (26-32) pg MCHC 32.1 (32-36) g/dl RDW 19.8 H (11.5-14.0) % Plt Count 551 H (150-450) K/mm3 MPV 8.8 (7.5-11.0) fl Gran % 85.1 H (36.0-66.0) % Eos # (Auto) 0.02 (0-0.5) Absolute Lymphs (auto) 1.78 (1.0-4.6) Absolute Monos (auto) 0.88 (0.0-1.3) Lymphocytes % 9.8 L (24.0-44.0) % Monocytes % 4.8 (0.0-12.0) % Eosinophils % 0.1 (0.00-5.0) % Basophils % 0.2 (0.0-0.4) % Absolute Granulocytes 15.51 H (1.4-6.9) Segmented Neutrophils 93 H (36.0-66.0) % Band Neutrophils 1 (0.0-2.0) % Lymphocytes (Manual) 6 L (24-44) % Basophils # 0.03 (0-0.4) Toxic Granulation 1+ Platelet Estimate INCREASED (NORMAL) RBC Morphology ABNORMAL Anisocytosis 1+ PT 15.1 H (9.4-12.5) SECONDS INR 1.28 (0.8-3.0) APTT 38.1 H (25.1-36.5) SECONDS Sodium Direct (138-146) mmol/L Potassium (3.5-4.9) mmol/L Chloride (98-109) mmol/L Carbon Dioxide (24-29) mmol/L Venous BUN (8-26) mg/dL Creatinine (0.6-1.3) mg/dL Glucose (70-105) mg/dL Lactic Acid (0.4-2.0) Ionized Calcium (1.12-1.32) mmol/L Troponin (0.00-0.03) ng/mL Troponin I (0.000-0.034) ng/mL Urine Color (YELLOW) Urine Appearance (CLEAR) Urine pH (5-6) Ur Specific [place] (1.005-1.025) Urine Protein (Negative) Urine Ketones (NEGATIVE) Urine Blood (0-5) Quentin/ul Urine Nitrite (NEGATIVE) Urine Bilirubin (NEGATIVE) Urine Urobilinogen (0-1) mg/dL Ur Leukocyte Esterase (NEGATIVE) Urine WBC (Auto) (0-5) /HPF Urine RBC (Auto) (0-2) /HPF U Hyaline Cast (Auto) (0-2) /LPF U Epithel Cells (Auto) (FEW) /HPF Urine Bacteria (Auto) (NEGATIVE) /HPF Urine Mucus (Auto) (NEGATIVE) /HPF Urine Culture Reflexed (NO) Urine Glucose (NEGATIVE) mg/dL SARS-CoV-2 (PCR) (NEGATIVE) - Progress Progress Note: 08/19/21 16:[address] Green 5mg IV Lopressor w decrease in heart rate 1L NS bolus 3.375mg IV Zosyn Discussed with : Alexandre Counseled pt/family regarding: lab results, diagnosis, need for follow-up, rad results - Departure Departure Disposition: Observation Clinical Impression: Sepsis Qualifiers: Sepsis type: Escherichia coli Sepsis acute organ dysfunction status: with acute organ dysfunction Severe sepsis acute organ dysfunction type: acute renal failure Severe sepsis shock status: without septic shock UTI (urinary tract infection) Qualifiers: Urinary tract infection type: acute pyelonephritis Condition: Stable Critical Care Time: Yes Critical Care Time(excluding separately billable procedures): Critical 30-74 mins
[2021-08-19 15:13] LABS: ANISOCYTOSIS 1+; BAND 1 % (0.0-2.0); Lymphocytes 6 % (24-44); Neutrophils 93 % (36.0-66.0); Platelet Estimate INCREASED (NORMAL); Total Cells Counted 100; Toxic Granulation 1+
[2021-08-19 15:24] LABS: ISTAT CREA 2.7 mg/dL (0.6-1.3)
[2021-08-19 16:07] LABS: Appearance CLOUDY (CLEAR); Bacteria FEW /HPF (NEGATIVE); Bilirubin NEGATIVE (NEGATIVE); Blood SMALL Ery/ul (0-5); Glucose NEGATIVE (NEGATIVE); Ketones TRACE (NEGATIVE); Leukocyte Esterase LARGE (NEGATIVE); Mucus SLIGHT /HPF (NEGATIVE); Nitrite POSITIVE (NEGATIVE); Protein,Urine Dip 30 (Negative); Specific Gravity 1.014 (1.005-1.025); Urobilinogen NEGATIVE mg/dL (0-1); WBC >100 /HPF (0-5)
[2021-08-19] MEDS ORDERED: Zosyn 3.375 GM Vial 3.375 GM in Sodium Chloride 100ML MINI-BAG PLUS 100 ML IV ONE (16:22)
[2021-08-19] MEDS ORDERED: Sodium Chloride 0.9% 1000 ML 1,000 ML IV STA ×2 (16:22→17:07)
[2021-08-19] MEDS ORDERED: Zosyn 3.375 GM Vial IV ONE ×2 (16:28→16:30)
[2021-08-19] MEDS ORDERED: Sodium Chloride 0.9% 1000 ML 1,000 ML ONE (16:28)
[2021-08-19] MEDS ORDERED: Sodium Chloride 100ML MINI-BAG PLUS 100 ML IV ONE (16:30)
[2021-08-19] MEDS ORDERED: Zofran 4 MG/2 ML VIAL IV PRN (17:00)
[2021-08-19] MEDS ORDERED: Zosyn 3.375 GM Vial 3.375 GM in Sodium Chloride 100ML MINI-BAG PLUS 100 ML IV SCH ×2 (18:00→22:00)
--- NOTE | 2021-08-19 20:27 | PCM.HP ---
History of Present Illness - Chief Complaint Chief Complaint: dysurea for 2-3 days History of Present Illness: is a 81 year old female. was on her way to Dr. Green's office for dysuria/lumbar pain when she got stuck getting into her car, so EMS was called. HR in the 150's, so pt brought into the ER. Pt denies CP/dyspnea/diaphoresis/N/V/D/melena/hematochezia/Fever. She states that she had lumbar surgery 6 wks ago. Timing/Duration: other (Several days) Method of Injury: other (Chronic lumbar pain) Quality: sharp Back Pain Location: lumbar spine Severity of Pain-Max: moderate Severity of Pain-Current: moderate Modifying Factors: Improves With: movement Associated Symptoms: weakness, lower back pain, No fever, No chills, No sweating, No urinary incontinence, No loss of bowel control, No constipation, No nausea, No vomiting, No problems urinating, No light-headedness, No dizziness, No numbness in legs/feet, No sensory/motor loss, No tingling in legs/feet, No muscle spasms Previous symptoms: same symptoms as today - Review of Systems Constitutional: Lethargy, Weakness, No Fever, No Chills Eyes: No Symptoms Ears, Nose, & Throat: No Symptoms Respiratory: No Cough, No Short Of Breath Cardiac: No Chest Pain, No Edema, No Syncope Abdominal/Gastrointestinal: No Abdominal Pain, No Nausea, No Vomiting, No Diarrhea Genitourinary Symptoms: Dysuria, Frequency, Urgency Musculoskeletal: No Back Pain, No Neck Pain Skin: No Rash Neurological: No Dizziness, No Focal Weakness, No Sensory Changes Psychological: No Symptoms Endocrine: No Symptoms Hematologic/Lymphatic: No Symptoms Immunological/Allergic: No Symptoms Medications & Allergies Home Medications: Home Medication List Allopurinol 300 mg [Zyloprim 300 mg] 300 mg PO DAILY 11/30/16 [History Confirmed 08/19/21] Apixaban [Eliquis] 2.5 mg PO BID 11/30/16 [History Confirmed 08/19/21] Bumetanide 1 mg [Bumex 1 mg] 2 mg PO TID 11/30/16 [History Confirmed 08/19/21] Levothyroxine Sodium [Synthroid] 25 mcg PO DAILY 11/30/16 [History Confirmed 08/19/21] Levothyroxine Sodium [Synthroid] 200 mcg PO DAILY 11/30/16 [History Confirmed 08/19/21] Magnesium Oxide 400 mg [Mag-Ox 400] 400 mg PO BID 11/30/16 [History Confirmed 08/19/21] Metolazone 2.5 mg [Zaroxolyn 2.5 MG] 2.5 mg PO DAILY 11/30/16 [History Confirmed 08/19/21] Potassium Chloride [Klor-Con 10] 30 meq PO BID 11/30/16 [History Confirmed 08/19/21] Nitroglycerin 0.4 mg Tablet [Nitrostat 0.4 MG Tablet] 0.4 mg SL Q5MIN PRN MR X 3 PRN 05/21/17 [History Confirmed 08/19/21] Vitamin B Complex [Super B-50 Complex] 1 cap PO DAILY 05/21/17 [History Confirmed 08/19/21] Metformin HCl 500 mg PO BID 04/24/18 [History Confirmed 08/19/21] Hydrocodone/APAP 5-325 Tab^^^ [[place] 5-325 Tablet^^^] 1 tab PO Q6HPRN PRN #10 tablet MDD 6 03/01/19 [Rx Confirmed 08/19/21] Diclofenac Sodium Gel [Voltaren GEL] 1 gm TOP TID PRN 09/05/20 [History Confirmed 08/19/21] Metoprolol Succinate 50 mg PO DAILY 09/05/20 [History Confirmed 08/19/21] Tamsulosin HCl 0.4 mg [Flomax 0.4 MG] 0.4 mg PO DAILY 09/05/20 [History Co nfirmed 08/19/21] Pantoprazole Sodium [Protonix] 40 mg PO DAILY 08/19/21 [History Confirmed 08/19/21] Allergies/Adverse Reactions: Allergies Allergy/AdvReac Type Severity Reaction Status Date / Time ofloxacin [From Floxin] Allergy Verified 08/19/21 14:28 Sulfa (Sulfonamide Allergy Verified 08/19/21 14:28 Antibiotics) [Sulfa(Sulfonamide Antibiotics)] - Past Medical History Past Medical History: Yes Neurological History: Peripheral Neuropathy ENT History: No Pertinent History Cardiac History: Hypertension Respiratory History: COPD Endocrine Medical History: Diabetes Type II, Hypothyroidism Musculoskelatal History: Arthritis GI Medical History: Diverticulitis, Diverticulosis, Hemorrhoids, Hernia History: Renal Disease Pyscho-Social History: No Pertinent History Reproductive Disorders: No Pertinent History Comment: PE, ARRYTHMIA, RENAL DZ, DDD, RA, OA, MYELODSYPLASTIC SYNDROME. PSH: CARDIAC CATH, HYSTERECTOMY, LUMPECTOMY, BASAL AND SQUAMOUS CELL CA. - Past Surgical History Past Surgical History: Yes Neuro Surgical History: No Pertinent History Cardiac History: Cardiac Catheterization Respiratory Surgery: No Pertinent History GI Surgical History: No Pertinent History Genitourinary Surgical Hx: No Pertinent History Musculskeletal Surgical Hx: No Pertinent History Female Surgical History: Hysterectomy, Lumpectomy Other Surgical History: breast tumor removed, tumor removed from back benign, 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, cauterization due to intestinal bleed - Social History Smoking Status: Never smoker Exposure to second hand smoke: No Alcohol: None Drug Use: none Significant Family History: no pertinent family hx - Physical Exam Vital Signs: Vital Signs - 24 hr Temp Pulse Resp BP Pulse Ox 08/19/21 18:05 105 H 18 123/73 95 08/19/21 16:33 99 08/19/21 16:02 108 H 20 134/75 97 08/19/21 15:52 117 H 18 134/75 99 08/19/21 14:51 122 H 22 151/94 99 08/19/21 14:08 97.9 F 143 H 28 H 146/76 99 General Appearance: moderate distress Neurologic Exam: alert, oriented x 3, cooperative, normal mood/affect, nml cerebellar function, nml station & gait, sensation nml, No motor deficits Eye Exam: PERRL/EOMI, eyes nml inspection Ears, Nose, Throat Exam: normal ENT inspection, TMs normal, pharynx normal, moist mucous membranes Neck Exam: normal inspection, non-tender, supple, full range of motion Respiratory Exam: normal breath sounds, diminished breath sounds, c rackles/rales, rhonchi, No respiratory distress Cardiovascular Exam: regular rate/rhythm, normal heart sounds, normal peripheral pulses Gastrointestinal/Abdomen Exam: soft, normal bowel sounds, No tenderness, No mass Back Exam: normal inspection, normal range of motion, No CVA tenderness, No vertebral tenderness Extremity Exam: normal inspection, normal range of motion, pelvis stable Skin Exam: normal color, warm, dry, No rash Lymphatic Exam: No adenopathy Results - Labs Lab/Micro Results: Lab Results-Last 24 Hours 08/19/21 08/19/21 08/19/21 Range/Units 14:15 14:15 14:15 WBC 18.2 H (4.0-10.5) K/mm3 RBC 3.84 L (4.1-5.4) M/mm3 Hgb 11.8 L (12.0-16.0) gm/dl Hct 36.8 (35-47) % MCV 95.8 (78-100) fl MCH 30.7 (26-32) pg MCHC 32.1 (32-36) g/dl RDW 19.8 H (11.5-14.0) % Plt Count 551 H (150-450) K/mm3 MPV 8.8 (7.5-11.0) fl Gran % 85.1 H (36.0-66.0) % Eos # (Auto) 0.02 (0-0.5) Absolute Lymphs (auto) 1.78 (1.0-4.6) Absolute Monos (auto) 0.88 (0.0-1.3) Lymphocytes % 9.8 L (24.0-44.0) % Monocytes % 4.8 (0.0-12.0) % Eosinophils % 0.1 (0.00-5.0) % Basophils % 0.2 (0.0-0.4) % Absolute Granulocytes 15.51 H (1.4-6.9) Segmented Neutrophils 93 H (36.0-66.0) % Band Neutrophils 1 (0.0-2.0) % Lymphocytes (Manual) 6 L (24-44) % Basophils # 0.03 (0-0.4) Toxic Granulation 1+ Platelet Estimate INCREASED (NORMAL) RBC Morphology ABNORMAL Anisocytosis 1+ PT 15.1 H (9.4-12.5) SECONDS INR 1.28 (0.8-3.0) APTT 38.1 H (25.1-36.5) SECONDS Sodium Direct (138-146) mmol/L Potassium (3.5-4.9) mmol/L Chloride (98-109) mmol/L Carbon Dioxide (24-29) mmol/L Venous BUN (8-26) mg/dL Creatinine (0.6-1.3) mg/dL Glucose (70-105) mg/dL Lactic Acid (0.4-2.0) Ionized Calcium (1.12-1.32) mmol/L Troponin 0.01 (0.00-0.03) ng/mL Troponin I (0.000-0.034) ng/mL Urine Color (YELLOW) Urine Appearance (CLEAR) Urine pH (5-6) Ur Specific Maple (1.005-1.025) Urine Protein (Negative) Urine Ketones (NEGATIVE) Urine Blood (0-5) Quentin/ul Urine Nitrite (NEGATIVE) Urine Bilirubin (NEGATIVE) Urine Urobilinogen (0-1) mg/dL Ur Leukocyte Esterase (NEGATIVE) Urine WBC (Auto) (0-5) /HPF Urine RBC (Auto) (0-2) /HPF U Hyaline Cast (Auto) (0-2) /LPF U Epithel Cells (Auto) (FEW) /HPF Urine Bacteria (Auto) (NEGATIVE) /HPF Urine Mucus (Auto) (NEGATIVE) /HPF Urine Culture Reflexed (NO) Urine Glucose (NEGATIVE) mg/dL SARS-CoV-2 (PCR) (NEGATIVE) 08/19/21 08/19/21 08/19/21 Range/Units 14:15 14:36 15:50 WBC (4.0-10.5) K/mm3 RBC (4.1-5.4) M/mm3 Hgb (12.0-16.0) gm/dl Hct (35-47) % MCV (78-100) fl MCH (26-32) pg MCHC (32-36) g/dl RDW (11.5-14.0) % Plt Count (150-450) K/mm3 MPV (7.5-11.0) fl Gran % (36.0-66.0) % Eos # (Auto) (0-0.5) Absolute Lymphs (auto) (1.0-4.6) Absolute Monos (auto) (0.0-1.3) Lymphocytes % (24.0-44.0) % Monocytes % (0.0-12.0) % Eosinophils % (0.00-5.0) % Basophils % (0.0-0.4) % Absolute Granulocytes (1.4-6.9) Segmented Neutrophils (36.0-66.0) % Band Neutrophils (0.0-2.0) % Lymphocytes (Manual) (24-44) % Basophils # (0-0.4) Toxic Granulation Platelet Estimate (NORMAL) RBC Morphology Anisocytosis PT (9.4-12.5) SECONDS INR (0.8-3.0) APTT (25.1-36.5) SECONDS Sodium Direct 133 L (138-146) mmol/L Potassium 4.3 (3.5-4.9) mmol/L Chloride 100 (98-109) mmol/L Carbon Dioxide 12 L (24-29) mmol/L Venous BUN 44 H (8-26) mg/dL Creatinine 2.7 H (0.6-1.3) mg/dL Glucose 176 H (70-105) mg/dL Lactic Acid 6.8 H (0.4-2.0) Ionized Calcium 1.16 (1.12-1.32) mmol/L Troponin (0.00-0.03) ng/mL Troponin I (0.000-0.034) ng/mL Urine Color DARY (YELLOW) Urine Appearance CLOUDY (CLEAR) Urine pH 5.0 (5-6) Ur Specific Maple 1.014 (1.005-1.025) Urine Protein 30 (Negative) Urine Ketones TRACE (NEGATIVE) Urine Blood SMALL (0-5) Quentin/ul Urine Nitrite POSITIVE (NEGATIVE) Urine Bilirubin NEGATIVE (NEGATIVE) Urine Urobilinogen NEGATIVE (0-1) mg/dL Ur Leukocyte Esterase LARGE (NEGATIVE) Urine WBC (Auto) >100 (0-5) /HPF Urine RBC (Auto) 6-10 (0-2) /HPF U Hyaline Cast (Auto) 11-25 (0-2) /LPF U Epithel Cells (Auto) NONE (FEW) /HPF Urine Bacteria (Auto) FEW (NEGATIVE) /HPF Urine Mucus (Auto) SLIGHT (NEGATIVE) /HPF Urine Culture Reflexed YES (NO) Urine Glucose NEGATIVE (NEGATIVE) mg/dL SARS-CoV-2 (PCR) (NEGATIVE) 08/19/21 08/19/21 Range/Units 17:02 17:28 WBC (4.0-10.5) K/mm3 RBC (4.1-5.4) M/mm3 Hgb (12.0-16.0) gm/dl Hct (35-47) % MCV (78-100) fl MCH (26-32) pg MCHC (32-36) g/dl RDW (11.5-14.0) % Plt Count (150-450) K/mm3 MPV (7.5-11.0) fl Gran % (36.0-66.0) % Eos # (Auto) (0-0.5) Absolute Lymphs (auto) (1.0-4.6) Absolute Monos (auto) (0.0-1.3) Lymphocytes % (24.0-44.0) % Monocytes % (0.0-12.0) % Eosinophils % (0.00-5.0) % Basophils % (0.0-0.4) % Absolute Granulocytes (1.4-6.9) Segmented Neutrophils (36.0-66.0) % Band Neutrophils (0.0-2.0) % Lymphocytes (Manual) (24-44) % Basophils # (0-0.4) Toxic Granulation Platelet Estimate (NORMAL) RBC Morphology Anisocytosis PT (9.4-12.5) SECONDS INR (0.8-3.0) APTT (25.1-36.5) SECONDS Sodium Direct (138-146) mmol/L Potassium (3.5-4.9) mmol/L Chloride (98-109) mmol/L Carbon Dioxide (24-29) mmol/L Venous BUN (8-26) mg/dL Creatinine (0.6-1.3) mg/dL Glucose (70-105) mg/dL Lactic Acid (0.4-2.0) Ionized Calcium (1.12-1.32) mmol/L Troponin (0.00-0.03) ng/mL Troponin I < 0.012 (0.000-0.034) ng/mL Urine Color (YELLOW) Urine Appearance (CLEAR) Urine pH (5-6) Ur Specific Maple (1.005-1.025) Urine Protein (Negative) Urine Ketones (NEGATIVE) Urine Blood (0-5) Quentin/ul Urine Nitrite (NEGATIVE) Urine Bilirubin (NEGATIVE) Urine Urobilinogen (0-1) mg/dL Ur Leukocyte Esterase (NEGATIVE) Urine WBC (Auto) (0-5) /HPF Urine RBC (Auto) (0-2) /HPF U Hyaline Cast (Auto) (0-2) /LPF U Epithel Cells (Auto) (FEW) /HPF Urine Bacteria (Auto) (NEGATIVE) /HPF Urine Mucus (Auto) (NEGATIVE) /HPF Urine Culture Reflexed (NO) Urine Glucose (NEGATIVE) mg/dL SARS-CoV-2 (PCR) NEGATIVE (NEGATIVE) - Radiology Impressions Radiology Exams & Impressions: Radiology Procedures Category Date Time Status CHEST 1 VIEW (PORTABLE) Stat Exams 08/19/21 14:21 Completed Assessment/Plan (1) Sepsis Current Visit: Yes Status: Acute Qualifiers: Sepsis type: Escherichia coli Sepsis acute organ dysfunction status: with acute organ dysfunction Severe sepsis acute organ dysfunction type: acute renal failure Severe sepsis shock status: without septic shock Assessment & Plan: Chief Complaint Diagnosis urosepsis Allergies Allergy/AdvReac Type Severity Reaction Status Date / Time ofloxacin [From Floxin] Allergy Verified 08/19/21 14:28 Sulfa (Sulfonamide Allergy Verified 08/19/21 14:28 Antibiotics) [Sulfa(Sulfonamide Antibiotics)] Vital Signs (Last 24 hours) Temp Pulse Resp BP Pulse Ox 08/19/21 18:05 105 H 18 123/73 95 08/19/21 16:33 99 08/19/21 16:02 108 H 20 134/75 97 08/19/21 15:52 117 H 18 134/75 99 08/19/21 14:51 122 H 22 151/94 99 08/19/21 14:08 97.9 F 143 H 28 H 146/76 99 Home Medications Medication Instructions Recorded Confirmed Last Taken Type Pantoprazole Sodium [Protonix] 40 mg PO DAILY 08/19/21 08/19/21 08/19/21 10:00 History Current Medications Generic Name Dose Route Start Last Admin Trade Name Freq PRN Reason Stop Dose Admin Sodium Chloride 1,000 mls @ 100 mls/hr 08/19/21 17:00 Sodium Chloride 0.9% 1000 Ml IV 09/18/21 16:59 .Q10H NKECHI Piperacillin Sod/Tazobactam 100 mls @ 200 mls/hr 08/20/21 00:00 Sod 3.375 gm/ Sodium Chloride IV 08/23/21 00:00 Q8H NKECHI Ondansetron HCl 4 mg 08/19/21 17:00 Zofran 4 Mg/2 Ml Vial IV 09/18/21 16:59 Q6H PRN PRN NAUSEA/VOMITING Pantoprazole Sodium 40 mg 08/20/21 10:00 Protonix 40 Mg Iv IV 09/19/21 09:59 Q24H10 NKECHI Discontinued Medications Generic Name Dose Route Start Last Admin Trade Name Freq PRN Reason Stop Dose Admin Sodium Chloride 1,000 mls @ 999 mls/hr 08/19/21 16:22 08/19/21 17:49 Sodium Chloride 0.9% 1000 Ml IV 08/19/21 17:22 Infused .Q1H1M STA Infusion Piperacillin Sod/Tazobactam 100 mls @ 200 mls/hr 08/19/21 16:22 08/19/21 16:38 Sod 3.375 gm/ Sodium Chloride IV 08/19/21 16:51 200 mls/hr STAT ONE Administration Sodium Chloride Confirm 08/19/21 16:28 Sodium Chloride 0.9% 1000 Ml Administered 08/19/21 16:29 Dose 1,000 mls @ ud .ROUTE .STK-MED ONE Sodium Chloride Confirm 08/19/21 16:30 Sodium Chloride 100ml Mini-Bag Plus Administered 08/19/21 16:31 Dose 100 mls @ ud IV .STK-MED ONE Piperacillin Sod/Tazobactam 100 mls @ 200 mls/hr 08/19/21 18:00 08/19/21 19:27 Sod 3.375 gm/ Sodium Chloride IV 08/22/21 17:59 Not Given Q6HT NKECHI Sodium Chloride 1,000 mls @ 999 mls/hr 08/19/21 17:07 08/19/21 19:28 Sodium Chloride 0.9% 1000 Ml IV 08/19/21 18:07 Not Given .Q1H1M STA Metoprolol Tartrate 5 mg 08/19/21 14:22 08/19/21 14:37 Lopressor 5 Mg/5 Ml Injection IV 08/19/21 14:23 5 mg STAT ONE Administration Metoprolol Tartrate Confirm 08/19/21 14:36 Lopressor 5 Mg/5 Ml Injection Administered 08/19/21 14:37 Dose 5 mg IV .STK-MED ONE Piperacillin Sod/Tazobactam Sod Confirm 08/19/21 16:28 Zosyn 3.375 Gm Vial Administered 08/19/21 16:29 Dose 3.375 gm IV .STK-MED ONE Piperacillin Sod/Tazobactam Sod Confirm 08/19/21 16:30 Zosyn 3.375 Gm Vial Administered 08/19/21 16:31 Dose 3.375 gm IV .STK-MED ONE Intake & Output (Last 24 hours) 08/17/21 08/18/21 08/19/21 08/20/21 11:59 11:59 11:59 11:59 Weight 65.6 kg Microbiology Results (Last 24 hours) 08/19/21 16:52 Blood Blood Culture Gram Stain - Pending 08/19/21 16:52 Blood Blood Culture - Pending 08/19/21 16:40 Blood Blood Culture Gram Stain - Pending 08/19/21 16:40 Blood Blood Culture - Pending 08/19/21 15:50 Urine, Catheterized Urine Culture - Pending Laboratory Results (Last 24 hours) 08/19/21 08/19/21 08/19/21 17:28 17:02 15:50 WBC RBC Hgb Hct MCV MCH MCHC RDW Plt Count MPV Gran % Eos # (Auto) Absolute Lymphs (auto) Absolute Monos (auto) Lymphocytes % Monocytes % Eosinophils % Basophils % Absolute Granulocytes Segmented Neutrophils Band Neutrophils Lymphocytes (Manual) Basophils # Toxic Granulation Platelet Estimate RBC Morphology Anisocytosis PT INR APTT Sodium Direct Potassium Chloride Carbon Dioxide Venous BUN Creatinine Glucose Lactic Acid Ionized Calcium Troponin Troponin I < 0.012 Urine Color DARY Urine Appearance CLOUDY Urine pH 5.0 Ur Specific Maple 1.014 Urine Protein 30 Urine Ketones TRACE Urine Blood SMALL Urine Nitrite POSITIVE Urine Bilirubin NEGATIVE Urine Urobilinogen NEGATIVE Ur Leukocyte Esterase LARGE Urine WBC (Auto) >100 Urine RBC (Auto) 6-10 U Hyaline Cast (Auto) 11-25 U Epithel Cells (Auto) NONE Urine Bacteria (Auto) FEW Urine Mucus (Auto) SLIGHT Urine Culture Reflexed YES Urine Glucose NEGATIVE SARS-CoV-2 (PCR) NEGATIVE 08/19/21 08/19/21 08/19/21 14:36 14:15 14:15 WBC RBC Hgb Hct MCV MCH MCHC RDW Plt Count MPV Gran % Eos # (Auto) Absolute Lymphs (auto) Absolute Monos (auto) Lymphocytes % Monocytes % Eosinophils % Basophils % Absolute Granulocytes Segmented Neutrophils Band Neutrophils Lymphocytes (Manual) Basophils # Toxic Granulation Platelet Estimate RBC Morphology Anisocytosis PT INR APTT Sodium Direct 133 L Potassium 4.3 Chloride 100 Carbon Dioxide 12 L Venous BUN 44 H Creatinine 2.7 H Glucose 176 H Lactic Acid 6.8 H Ionized Calcium 1.16 Troponin 0.01 Troponin I Urine Color Urine Appearance Urine pH Ur Specific Maple Urine Protein Urine Ketones Urine Blood Urine Nitrite Urine Bilirubin Urine Urobilinogen Ur Leukocyte Esterase Urine WBC (Auto) Urine RBC (Auto) U Hyaline Cast (Auto) U Epithel Cells (Auto) Urine Bacteria (Auto) Urine Mucus (Auto) Urine Culture Reflexed Urine Glucose SARS-CoV-2 (PCR) 08/19/21 08/19/21 14:15 14:15 WBC 18.2 H RBC 3.84 L Hgb 11.8 L Hct 36.8 MCV 95.8 MCH 30.7 MCHC 32.1 RDW 19.8 H Plt Count 551 H MPV 8.8 Gran % 85.1 H Eos # (Auto) 0.02 Absolute Lymphs (auto) 1.78 Absolute Monos (auto) 0.88 Lymphocytes % 9.8 L Monocytes % 4.8 Eosinophils % 0.1 Basophils % 0.2 Absolute Granulocytes 15.51 H Segmented Neutrophils 93 H Band Neutrophils 1 Lymphocytes (Manual) 6 L Basophils # 0.03 Toxic Granulation 1+ Platelet Estimate INCREASED RBC Morphology ABNORMAL Anisocytosis 1+ PT 15.1 H INR 1.28 APTT 38.1 H Sodium Direct Potassium Chloride Carbon Dioxide Venous BUN Creatinine Glucose Lactic Acid Ionized Calcium Troponin Troponin I Urine Color Urine Appearance Urine pH Ur Specific Maple Urine Protein Urine Ketones Urine Blood Urine Nitrite Urine Bilirubin Urine Urobilinogen Ur Leukocyte Esterase Urine WBC (Auto) Urine RBC (Auto) U Hyaline Cast (Auto) U Epithel Cells (Auto) Urine Bacteria (Auto) Urine Mucus (Auto) Urine Culture Reflexed Urine Glucose SARS-CoV-2 (PCR) Orders (Last 24 hours) Category Date Time Status Bedrest ROUTINE Activity 08/19/21 17:01 Active EKG-ER Only STAT Care 08/19/21 14:21 Completed Intake and Output Q12H Care 08/19/21 17:[address] in Observation ROUTINE Care 08/19/21 17:00 Active Heart-Healthy Diet Diet 08/19/21 Breakfast Active CHEST 1 VIEW (PORTABLE) Stat Exams 08/19/21 14:21 Completed BLOOD CULTURE Stat Lab 08/19/21 16:52 Received CBC W DIFF AM.LAB Lab 08/20/21 04:00 Ordered CBC W DIFF Stat Lab 08/19/21 14:15 Completed CMP AM.LAB Lab 08/20/21 04:00 Ordered CULTURE,URINE Stat Lab 08/19/21 15:50 Received Lactic Acid AM.LAB Lab 08/20/21 04:00 Ordered Lactic Acid Stat Lab 08/19/21 14:36 Completed Manual Differential NC Stat Lab 08/19/21 14:15 Completed PROCALCITONIN Stat Lab 08/19/21 20:06 Ordered PROTIME WITH INR Stat Lab 08/19/21 14:15 Completed PTT Stat Lab 08/19/21 14:15 Completed TROPONIN Q3H Lab 08/19/21 17:28 Completed TROPONIN Q3H Lab 08/19/21 20:30 Ordered TROPONIN Q3H Lab 08/19/21 23:30 Ordered TROPONIN Q3H Lab 08/20/21 02:30 Ordered UA W/RFX UR CULTURE Stat Lab 08/19/21 15:50 Completed Metoprolol Tartrate 5 mg/5 ml* [Lopressor 5 mg/5 ml Med 08/19/21 14:36 Discontinued Injection] 5 mg IV .STK-MED ONE Metoprolol Tartrate 5 mg/5 ml* [Lopressor 5 mg/5 ml Med 08/19/21 14:22 Discontinued Injection] 5 mg IV STAT ONE NaCl 0.9% 100 ml Mini-Bag Plus [Sodium Chloride 100ML Med 08/19/21 16:30 Discontinued MINI-BAG PLUS] 100 ml IV UD NaCl 0.9% 1000 ml [Sodium Chloride 0.9% 1000 ML] 1,000 Med 08/19/21 16:28 Discontinued ml .ROUTE UD NaCl 0.9% 1000 ml [Sodium Chloride 0.9% 1000 ML] 1,000 Med 08/19/21 17:00 Active ml IV 100 mls/hr NaCl 0.9% 1000 ml [Sodium Chloride 0.9% 1000 ML] 1,000 Med 08/19/21 16:22 Discontinued ml IV 999 mls/hr NaCl 0.9% 1000 ml [Sodium Chloride 0.9% 1000 ML] 1,000 Med 08/19/21 17:07 Discontinued ml IV 999 mls/hr Ondansetron HCl 4 mg/2 ml [Zofran 4 MG/2 ML VIAL] Med 08/19/21 17:00 Active 4 mg IV Q6H PRN PRN Pantoprazole 40 mg [Protonix 40 mg IV] Med 08/20/21 10:00 Active 40 mg IV Q24H10 Piperacillin/Tazobactam 3.375G [Zosyn 3.375 GM Vial] Med 08/19/21 16:28 Discontinued 3.375 gm IV .STK-MED ONE Piperacillin/Tazobactam 3.375G [Zosyn 3.375 GM Vial] Med 08/19/21 16:30 Discontinued 3.375 gm IV .STK-MED ONE Piperacillin/Tazobactam 3.375G [Zosyn 3.375 GM Vial] 3. Med 08/19/21 18:00 Discontinued 375 gm NaCl 0.9% 100 ml Mini-Bag Plus [Sodium Chloride 100ML MINI-BAG PLUS] 100 ml IV Q6HT Piperacillin/Tazobactam 3.375G [Zosyn 3.375 GM Vial] 3. Med 08/20/21 00:00 Active 375 gm NaCl 0.9% 100 ml Mini-Bag Plus [Sodium Chloride 100ML MINI-BAG PLUS] 100 ml IV Q8H Piperacillin/Tazobactam 3.375G [Zosyn 3.375 GM Vial] 3. Med 08/19/21 16:22 Discontinued 375 gm NaCl 0.9% 100 ml Mini-Bag Plus [Sodium Chloride 100ML MINI-BAG PLUS] 100 ml IV STAT Transfer Order Routine Transfer 08/19/21 Completed (2) UTI (urinary tract infection) Current Visit: Yes Status: Acute Qualifiers: Urinary tract infection type: acute pyelonephritis Code(s): N39.0 - URINARY TRACT INFECTION, SITE NOT SPECIFIED (3) Atrial fibrillation Current Visit: Yes Status: Chronic Qualifiers: Atrial fibrillation type: paroxysmal Code(s): I48.91 - UNSPECIFIED ATRIAL FIBRILLATION (4) Diabetic neuropathy associated with type 2 diabetes mellitus Current Visit: Yes Status: Chronic Qualifiers: Diabetes mellitus complication detail: diabetic polyneuropathy Qualified Code(s): E11.42 - Type 2 diabetes mellitus with diabetic polyneuropathy Code(s): E11.40 - TYPE 2 DIABETES MELLITUS WITH DIABETIC NEUROPATHY, UNSP
[2021-08-19] MEDS ORDERED: Nitrostat 0.4 MG Tablet SL PRN (21:06)
[2021-08-19] MEDS ORDERED: Voltaren GEL TOP PRN (21:15)
[2021-08-19] MEDS ORDERED: BUMEX 1 MG PO SCH (22:00)
[2021-08-19] MEDS: Klor Con 10 MEQ PO SCH (23:08)
[2021-08-19] MEDS: ELIQUIS 2.5 MG TABLET PO SCH (23:09)
[2021-08-19] MEDS: NORCO 5/325 MG PO PRN (23:09)
[2021-08-19] MEDS: MAG-OX 400 PO SCH (23:10)
[2021-08-19] MEDS: Sodium Chloride 0.9% 1000 ML 1,000 ML IV SCH (23:26)
[2021-08-20] MEDS ORDERED: Zosyn 3.375 GM Vial 3.375 GM in Sodium Chloride 100ML MINI-BAG PLUS 100 ML IV SCH ×2
[2021-08-20 04:52] LABS: Hematocrit 32.1 % (35-47); Hemoglobin 10.3 gm/dl (12.0-16.0); Mean Cell Volume 96.4 fl (78-100); Mean Corpuscular Hemoglobin 30.9 pg (26-32); Mean Corpuscular Hgb Concent. 32.1 g/dl (32-36); Mean Platelet Volume 8.1 fl (7.5-11.0); Platelet Count 379 K/mm3 (150-450); Red Blood Count 3.33 M/mm3 (4.1-5.4); White Blood Count 12.5 K/mm3 (4.0-10.5)
[2021-08-20 05:24] LABS: ALBUMIN 2.2 g/dL (3.5-5.0); ANION GAP 20.6 MEQ/L (5-15); BILIRUBIN,TOTAL 0.5 mg/dL (0.2-1.3); Calcium 8.8 mg/dL (8.4-10.2); Creatinine 1 1.65 mg/dL (0.52-1.04); EST GLOMERULAR FILTRATION RATE 31.7 ML/MIN; Potassium 3.5 mmol/L (3.5-5.1); Total Protein 5.1 g/dL (6.3-8.2)
[2021-08-20 05:31] LABS: Lymphocytes 11 % (24-44); Monocyte 2 % (0.0-12.0); Neutrophils 87 % (36.0-66.0); Total Cells Counted 100
[2021-08-20 05:32] LABS: Macrocytosis 1+; Platelet Estimate NORMAL (NORMAL)
[2021-08-20] MEDS ORDERED: Glucophage 500 MG PO SCH (08:00)
--- NOTE | 2021-08-20 08:17 | PCM.NOTE ---
Date and Time: 08/20/21813 Subjective Assessment: doing little better - Review of Systems Constitutional: Lethargy, Weakness, No Fever, No Chills Eyes: No Symptoms Ears, Nose, & Throat: No Symptoms Respiratory: No Cough, No Short Of Breath Cardiac: No Chest Pain, No Edema, No Syncope Abdominal/Gastrointestinal: No Abdominal Pain, No Nausea, No Vomiting, No Diarrhea Genitourinary Symptoms: No Dysuria Musculoskeletal: No Back Pain, No Neck Pain Skin: No Rash Neurological: No Dizziness, No Focal Weakness, No Sensory Changes Psychological: No Symptoms Endocrine: No Symptoms Hematologic/Lymphatic: No Symptoms Immunological/Allergic: No Symptoms Objective Exam General Appearance: no apparent distress, alert Neurologic Exam: alert, oriented x 3, cooperative, normal mood/affect, sensation nml, No motor deficits Skin Exam: normal color, warm, dry Wound Assessment: Skin/Wound Assessment Wound/Incision Assessment Start: 08/19/21 20:44 Text: Status: Active Freq: Q6H Protocol: Document 08/20/21 02:44 MS (Rec: 08/20/21 03:21 MS [id number]) Wound/Incision Assessment Heel Wound Assessment Shift Assessment Wound Type Pressure Ulcer Wound Stage Stage I Drainage Amount None Surrounding Tissue [place] Comment bilateral heels reddened, non blanchable Lower Abdomen Wound Assessment Shift Assessment Wound Type Abrasion Wound Stage Non Pressure Wound Drainage Amount None Comment sm open area Right Buttock Wound Assessment Shift Assessment Wound Type Pressure Ulcer Wound Stage Stage III Drainage Amount Minimal General Appearance Open to air Length (cm) (cm) 0.9 Width (cm) (cm) 0.6 Wound Bed Greatest Portion Shiny Wound Bed Lesser Portion Red (Granulation) Surrounding Tissue Bright Red,Dark Red Left Buttock Wound Assessment Shift Assessment Wound Type Pressure Ulcer Wound Stage Stage III Drainage Amount Minimal General Appearance Open to air Length (cm) (cm) 6.3 Width (cm) (cm) 4.4 Wound Bed Greatest Portion Red (Granulation) Wound Bed Lesser Portion Red (Granulation),Shiny Surrounding Tissue Bright Red,Dark Red Eye Exam: PERRL, EOMI, eyes nml inspection Ears, Nose, Throat Exam: normal ENT inspection, pharynx normal, moist mucous membranes Neck Exam: normal inspection, non-tender, supple, full range of motion Respiratory Exam: normal breath sounds, lungs clear, No respiratory distress Cardiovascular Exam: regular rate/rhythm, normal heart sounds Gastrointestinal/Abdomen Exam: soft, No tenderness, No mass Extremity Exam: normal inspection, normal range of motion Back Exam: normal inspection, normal range of motion, No CVA tenderness, No vertebral tenderness Pelvic Exam: deferred Rectal Exam: deferred OBJECTIVE DATA Vital Signs: Vital Signs - 24 hr Temp Pulse Resp BP Pulse Ox 08/20/21 06:53 97.8 F 87 16 136/63 99 08/20/21 04:00 97.4 F 81 16 146/72 99 08/19/21 23:20 97.1 F 86 16 115/54 99 08/19/21 21:11 99 08/19/21 19:50 97.9 F 105 H 18 123/73 95 08/19/21 18:05 105 H 18 123/73 95 08/19/21 16:02 108 H 20 134/75 97 08/19/21 15:52 117 H 18 134/75 99 08/19/21 14:51 122 H 22 151/94 99 08/19/21 14:08 97.9 F 143 H 28 H 146/76 99 Pain Assessment - Last Documented Pain Intensity 8 Pain Scale Used 0-10 Pain Scale Intake and Output: Intake & Output 08/17/21 08/18/21 08/19/21 08/20/21 11:59 11:59 11:59 11:59 Intake Total 987 Balance 987 Weight 62.2 kg Lab Results: Lab Results-Last 24 Hours 08/19/21 08/19/21 08/19/21 Range/Units 01:00 14:15 14:15 WBC 18.2 H (4.0-10.5) K/mm3 RBC 3.84 L (4.1-5.4) M/mm3 Hgb 11.8 L (12.0-16.0) gm/dl Hct 36.8 (35-47) % MCV 95.8 (78-100) fl MCH 30.7 (26-32) pg MCHC 32.1 (32-36) g/dl RDW 19.8 H (11.5-14.0) % Plt Count 551 H (150-450) K/mm3 MPV 8.8 (7.5-11.0) fl Gran % 85.1 H (36.0-66.0) % Eos # (Auto) 0.02 (0-0.5) Absolute Lymphs (auto) 1.78 (1.0-4.6) Absolute Monos (auto) 0.88 (0.0-1.3) Lymphocytes % 9.8 L (24.0-44.0) % Monocytes % 4.8 (0.0-12.0) % Eosinophils % 0.1 (0.00-5.0) % Basophils % 0.2 (0.0-0.4) % Absolute Granulocytes 15.51 H (1.4-6.9) Segmented Neutrophils 93 H (36.0-66.0) % Band Neutrophils 1 (0.0-2.0) % Lymphocytes (Manual) 6 L (24-44) % Monocytes (Manual) (0.0-12.0) % Basophils # 0.03 (0-0.4) Toxic Granulation 1+ Platelet Estimate INCREASED (NORMAL) RBC Morphology ABNORMAL Anisocytosis 1+ Macrocytosis PT 15.1 H (9.4-12.5) SECONDS INR 1.28 (0.8-3.0) APTT 38.1 H (25.1-36.5) SECONDS Sodium (137-145) mmol/L Sodium Direct (138-146) mmol/L Potassium (3.5-4.9) mmol/L Chloride (98-109) mmol/L Carbon Dioxide (24-29) mmol/L Anion Gap (5-15) MEQ/L BUN (7-17) mg/dL Venous BUN (8-26) mg/dL Creatinine (0.6-1.3) mg/dL Estimated GFR ML/MIN Glucose (70-105) mg/dL POC Glucometer (74 to 106) mg/dL Lactic Acid (0.4-2.0) Calcium (8.4-10.2) mg/dL Ionized Calcium (1.12-1.32) mmol/L Total Bilirubin (0.2-1.3) mg/dL AST (14-36) U/L ALT (0-35) U/L Alkaline Phosphatase (38-126) U/L Troponin (0.00-0.03) ng/mL Troponin I < 0.012 (0.000-0.034) ng/mL Serum Total Protein (6.3-8.2) g/dL Albumin (3.5-5.0) g/dL Procalcitonin (0.030-0.080) ng/mL Urine Color (YELLOW) Urine Appearance (CLEAR) Urine pH (5-6) Ur Specific [place] (1.005-1.025) Urine Protein (Negative) Urine Ketones (NEGATIVE) Urine Blood (0-5) Quentin/ul Urine Nitrite (NEGATIVE) Urine Bilirubin (NEGATIVE) Urine Urobilinogen (0-1) mg/dL Ur Leukocyte Esterase (NEGATIVE) Urine WBC (Auto) (0-5) /HPF Urine RBC (Auto) (0-2) /HPF U Hyaline Cast (Auto) (0-2) /LPF U Epithel Cells (Auto) (FEW) /HPF Urine Bacteria (Auto) (NEGATIVE) /HPF Urine Mucus (Auto) (NEGATIVE) /HPF Urine Culture Reflexed (NO) Urine Glucose (NEGATIVE) mg/dL SARS-CoV-2 (PCR) (NEGATIVE) 08/19/21 08/19/21 08/19/21 Range/Units 14:15 14:15 14:36 WBC (4.0-10.5) K/mm3 RBC (4.1-5.4) M/mm3 Hgb (12.0-16.0) gm/dl Hct (35-47) % MCV (78-100) fl MCH (26-32) pg MCHC (32-36) g/dl RDW (11.5-14.0) % Plt Count (150-450) K/mm3 MPV (7.5-11.0) fl Gran % (36.0-66.0) % Eos # (Auto) (0-0.5) Absolute Lymphs (auto) (1.0-4.6) Absolute Monos (auto) (0.0-1.3) Lymphocytes % (24.0-44.0) % Monocytes % (0.0-12.0) % Eosinophils % (0.00-5.0) % Basophils % (0.0-0.4) % Absolute Granulocytes (1.4-6.9) Segmented Neutrophils (36.0-66.0) % Band Neutrophils (0.0-2.0) % Lymphocytes (Manual) (24-44) % Monocytes (Manual) (0.0-12.0) % Basophils # (0-0.4) Toxic Granulation Platelet Estimate (NORMAL) RBC Morphology Anisocytosis Macrocytosis PT (9.4-12.5) SECONDS INR (0.8-3.0) APTT (25.1-36.5) SECONDS Sodium (137-145) mmol/L Sodium Direct 133 L (138-146) mmol/L Potassium 4.3 (3.5-4.9) mmol/L Chloride 100 (98-109) mmol/L Carbon Dioxide 12 L (24-29) mmol/L Anion Gap (5-15) MEQ/L BUN (7-17) mg/dL Venous BUN 44 H (8-26) mg/dL Creatinine 2.7 H (0.6-1.3) mg/dL Estimated GFR ML/MIN Glucose 176 H (70-105) mg/dL POC Glucometer (74 to 106) mg/dL Lactic Acid 6.8 H (0.4-2.0) Calcium (8.4-10.2) mg/dL Ionized Calcium 1.16 (1.12-1.32) mmol/L Total Bilirubin (0.2-1.3) mg/dL AST (14-36) U/L ALT (0-35) U/L Alkaline Phosphatase (38-126) U/L Troponin 0.01 (0.00-0.03) ng/mL Troponin I (0.000-0.034) ng/mL Serum Total Protein (6.3-8.2) g/dL Albumin (3.5-5.0) g/dL Procalcitonin (0.030-0.080) ng/mL Urine Color (YELLOW) Urine Appearance (CLEAR) Urine pH (5-6) Ur Specific [place] (1.005-1.025) Urine Protein (Negative) Urine Ketones (NEGATIVE) Urine Blood (0-5) Quentin/ul Urine Nitrite (NEGATIVE) Urine Bilirubin (NEGATIVE) Urine Urobilinogen (0-1) mg/dL Ur Leukocyte Esterase (NEGATIVE) Urine WBC (Auto) (0-5) /HPF Urine RBC (Auto) (0-2) /HPF U Hyaline Cast (Auto) (0-2) /LPF U Epithel Cells (Auto) (FEW) /HPF Urine Bacteria (Auto) (NEGATIVE) /HPF Urine Mucus (Auto) (NEGATIVE) /HPF Urine Culture Reflexed (NO) Urine Glucose (NEGATIVE) mg/dL SARS-CoV-2 (PCR) (NEGATIVE) 08/19/21 08/19/21 08/19/21 Range/Units 15:50 17:02 17:28 WBC (4.0-10.5) K/mm3 RBC (4.1-5.4) M/mm3 Hgb (12.0-16.0) gm/dl Hct (35-47) % MCV (78-100) fl MCH (26-32) pg MCHC (32-36) g/dl RDW (11.5-14.0) % Plt Count (150-450) K/mm3 MPV (7.5-11.0) fl Gran % (36.0-66.0) % Eos # (Auto) (0-0.5) Absolute Lymphs (auto) (1.0-4.6) Absolute Monos (auto) (0.0-1.3) Lymphocytes % (24.0-44.0) % Monocytes % (0.0-12.0) % Eosinophils % (0.00-5.0) % Basophils % (0.0-0.4) % Absolute Granulocytes (1.4-6.9) Segmented Neutrophils (36.0-66.0) % Band Neutrophils (0.0-2.0) % Lymphocytes (Manual) (24-44) % Monocytes (Manual) (0.0-12.0) % Basophils # (0-0.4) Toxic Granulation Platelet Estimate (NORMAL) RBC Morphology Anisocytosis Macrocytosis PT (9.4-12.5) SECONDS INR (0.8-3.0) APTT (25.1-36.5) SECONDS Sodium (137-145) mmol/L Sodium Direct (138-146) mmol/L Potassium (3.5-4.9) mmol/L Chloride (98-109) mmol/L Carbon Dioxide (24-29) mmol/L Anion Gap (5-15) MEQ/L BUN (7-17) mg/dL Venous BUN (8-26) mg/dL Creatinine (0.6-1.3) mg/dL Estimated GFR ML/MIN Glucose (70-105) mg/dL POC Glucometer (74 to 106) mg/dL Lactic Acid (0.4-2.0) Calcium (8.4-10.2) mg/dL Ionized Calcium (1.12-1.32) mmol/L Total Bilirubin (0.2-1.3) mg/dL AST (14-36) U/L ALT (0-35) U/L Alkaline Phosphatase (38-126) U/L Troponin (0.00-0.03) ng/mL Troponin I < 0.012 (0.000-0.034) ng/mL Serum Total Protein (6.3-8.2) g/dL Albumin (3.5-5.0) g/dL Procalcitonin (0.030-0.080) ng/mL Urine Color DARY (YELLOW) Urine Appearance CLOUDY (CLEAR) Urine pH 5.0 (5-6) Ur Specific [place] 1.014 (1.005-1.025) Urine Protein 30 (Negative) Urine Ketones TRACE (NEGATIVE) Urine Blood SMALL (0-5) Quentin/ul Urine Nitrite POSITIVE (NEGATIVE) Urine Bilirubin NEGATIVE (NEGATIVE) Urine Urobilinogen NEGATIVE (0-1) mg/dL Ur Leukocyte Esterase LARGE (NEGATIVE) Urine WBC (Auto) >100 (0-5) /HPF Urine RBC (Auto) 6-10 (0-2) /HPF U Hyaline Cast (Auto) 11-25 (0-2) /LPF U Epithel Cells (Auto) NONE (FEW) /HPF Urine Bacteria (Auto) FEW (NEGATIVE) /HPF Urine Mucus (Auto) SLIGHT (NEGATIVE) /HPF Urine Culture Reflexed YES (NO) Urine Glucose NEGATIVE (NEGATIVE) mg/dL SARS-CoV-2 (PCR) NEGATIVE (NEGATIVE) 08/19/21 08/19/21 08/19/21 Range/Units 20:06 20:46 21:03 WBC (4.0-10.5) K/mm3 RBC (4.1-5.4) M/mm3 Hgb (12.0-16.0) gm/dl Hct (35-47) % MCV (78-100) fl MCH (26-32) pg MCHC (32-36) g/dl RDW (11.5-14.0) % Plt Count (150-450) K/mm3 MPV (7.5-11.0) fl Gran % (36.0-66.0) % Eos # (Auto) (0-0.5) Absolute Lymphs (auto) (1.0-4.6) Absolute Monos (auto) (0.0-1.3) Lymphocytes % (24.0-44.0) % Monocytes % (0.0-12.0) % Eosinophils % (0.00-5.0) % Basophils % (0.0-0.4) % Absolute Granulocytes (1.4-6.9) Segmented Neutrophils (36.0-66.0) % Band Neutrophils (0.0-2.0) % Lymphocytes (Manual) (24-44) % Monocytes (Manual) (0.0-12.0) % Basophils # (0-0.4) Toxic Granulation Platelet Estimate (NORMAL) RBC Morphology Anisocytosis Macrocytosis PT (9.4-12.5) SECONDS INR (0.8-3.0) APTT (25.1-36.5) SECONDS Sodium (137-145) mmol/L Sodium Direct (138-146) mmol/L Potassium (3.5-4.9) mmol/L Chloride (98-109) mmol/L Carbon Dioxide (24-29) mmol/L Anion Gap (5-15) MEQ/L BUN (7-17) mg/dL Venous BUN (8-26) mg/dL Creatinine (0.6-1.3) mg/dL Estimated GFR ML/MIN Glucose (70-105) mg/dL POC Glucometer 98 (74 to 106) mg/dL Lactic Acid (0.4-2.0) Calcium (8.4-10.2) mg/dL Ionized Calcium (1.12-1.32) mmol/L Total Bilirubin (0.2-1.3) mg/dL AST (14-36) U/L ALT (0-35) U/L Alkaline Phosphatase (38-126) U/L Troponin (0.00-0.03) ng/mL Troponin I < 0.012 (0.000-0.034) ng/mL Serum Total Protein (6.3-8.2) g/dL Albumin (3.5-5.0) g/dL Procalcitonin 30.900 H* (0.030-0.080) ng/mL Urine Color (YELLOW) Urine Appearance (CLEAR) Urine pH (5-6) Ur Specific [place] (1.005-1.025) Urine Protein (Negative) Urine Ketones (NEGATIVE) Urine Blood (0-5) Quentin/ul Urine Nitrite (NEGATIVE) Urine Bilirubin (NEGATIVE) Urine Urobilinogen (0-1) mg/dL Ur Leukocyte Esterase (NEGATIVE) Urine WBC (Auto) (0-5) /HPF Urine RBC (Auto) (0-2) /HPF U Hyaline Cast (Auto) (0-2) /LPF U Epithel Cells (Auto) (FEW) /HPF Urine Bacteria (Auto) (NEGATIVE) /HPF Urine Mucus (Auto) (NEGATIVE) /HPF Urine Culture Reflexed (NO) Urine Glucose (NEGATIVE) mg/dL SARS-CoV-2 (PCR) (NEGATIVE) 08/20/21 08/20/21 08/20/21 Range/Units 04:38 04:38 04:38 WBC 12.5 H (4.0-10.5) K/mm3 RBC 3.33 L (4.1-5.4) M/mm3 Hgb 10.3 L (12.0-16.0) gm/dl Hct 32.1 L (35-47) % MCV 96.4 (78-100) fl MCH 30.9 (26-32) pg MCHC 32.1 (32-36) g/dl RDW 20.0 H (11.5-14.0) % Plt Count 379 (150-450) K/mm3 MPV 8.1 (7.5-11.0) fl Gran % (36.0-66.0) % Eos # (Auto) (0-0.5) Absolute Lymphs (auto) (1.0-4.6) Absolute Monos (auto) (0.0-1.3) Lymphocytes % (24.0-44.0) % Monocytes % (0.0-12.0) % Eosinophils % (0.00-5.0) % Basophils % (0.0-0.4) % Absolute Granulocytes (1.4-6.9) Segmented Neutrophils 87 H (36.0-66.0) % Band Neutrophils (0.0-2.0) % Lymphocytes (Manual) 11 L (24-44) % Monocytes (Manual) 2 (0.0-12.0) % Basophils # (0-0.4) Toxic Granulation Platelet Estimate NORMAL (NORMAL) RBC Morphology ABNORMAL Anisocytosis Macrocytosis 1+ PT (9.4-12.5) SECONDS INR (0.8-3.0) APTT (25.1-36.5) SECONDS Sodium 137 (137-145) mmol/L Sodium Direct (138-146) mmol/L Potassium 3.5 (3.5-4.9) mmol/L Chloride 103 (98-109) mmol/L Carbon Dioxide 17 L (24-29) mmol/L Anion Gap 20.6 H (5-15) MEQ/L BUN 34 H (7-17) mg/dL Venous BUN (8-26) mg/dL Creatinine 1.65 H (0.6-1.3) mg/dL Estimated GFR 31.7 ML/MIN Glucose 86 (70-105) mg/dL POC Glucometer (74 to 106) mg/dL Lactic Acid (0.4-2.0) Calcium 8.8 (8.4-10.2) mg/dL Ionized Calcium (1.12-1.32) mmol/L Total Bilirubin 0.50 (0.2-1.3) mg/dL AST 19 (14-36) U/L ALT 9 (0-35) U/L Alkaline Phosphatase 175 H (38-126) U/L Troponin (0.00-0.03) ng/mL Troponin I < 0.012 (0.000-0.034) ng/mL Serum Total Protein 5.1 L (6.3-8.2) g/dL Albumin 2.2 L (3.5-5.0) g/dL Procalcitonin (0.030-0.080) ng/mL Urine Color (YELLOW) Urine Appearance (CLEAR) Urine pH (5-6) Ur Specific [place] (1.005-1.025) Urine Protein (Negative) Urine Ketones (NEGATIVE) Urine Blood (0-5) Quentin/ul Urine Nitrite (NEGATIVE) Urine Bilirubin (NEGATIVE) Urine Urobilinogen (0-1) mg/dL Ur Leukocyte Esterase (NEGATIVE) Urine WBC (Auto) (0-5) /HPF Urine RBC (Auto) (0-2) /HPF U Hyaline Cast (Auto) (0-2) /LPF U Epithel Cells (Auto) (FEW) /HPF Urine Bacteria (Auto) (NEGATIVE) /HPF Urine Mucus (Auto) (NEGATIVE) /HPF Urine Culture Reflexed (NO) Urine Glucose (NEGATIVE) mg/dL SARS-CoV-2 (PCR) (NEGATIVE) 08/20/21 08/20/21 Range/Units 04:41 06:42 WBC (4.0-10.5) K/mm3 RBC (4.1-5.4) M/mm3 Hgb (12.0-16.0) gm/dl Hct (35-47) % MCV (78-100) fl MCH (26-32) pg MCHC (32-36) g/dl RDW (11.5-14.0) % Plt Count (150-450) K/mm3 MPV (7.5-11.0) fl Gran % (36.0-66.0) % Eos # (Auto) (0-0.5) Absolute Lymphs (auto) (1.0-4.6) Absolute Monos (auto) (0.0-1.3) Lymphocytes % (24.0-44.0) % Monocytes % (0.0-12.0) % Eosinophils % (0.00-5.0) % Basophils % (0.0-0.4) % Absolute Granulocytes (1.4-6.9) Segmented Neutrophils (36.0-66.0) % Band Neutrophils (0.0-2.0) % Lymphocytes (Manual) (24-44) % Monocytes (Manual) (0.0-12.0) % Basophils # (0-0.4) Toxic Granulation Platelet Estimate (NORMAL) RBC Morphology Anisocytosis Macrocytosis PT (9.4-12.5) SECONDS INR (0.8-3.0) APTT (25.1-36.5) SECONDS Sodium (137-145) mmol/L Sodium Direct (138-146) mmol/L Potassium (3.5-4.9) mmol/L Chloride (98-109) mmol/L Carbon Dioxide (24-29) mmol/L Anion Gap (5-15) MEQ/L BUN (7-17) mg/dL Venous BUN (8-26) mg/dL Creatinine (0.6-1.3) mg/dL Estimated GFR ML/MIN Glucose (70-105) mg/dL POC Glucometer 91 (74 to 106) mg/dL Lactic Acid 0.8 (0.4-2.0) Calcium (8.4-10.2) mg/dL Ionized Calcium (1.12-1.32) mmol/L Total Bilirubin (0.2-1.3) mg/dL AST (14-36) U/L ALT (0-35) U/L Alkaline Phosphatase (38-126) U/L Troponin (0.00-0.03) ng/mL Troponin I (0.000-0.034) ng/mL Serum Total Protein (6.3-8.2) g/dL Albumin (3.5-5.0) g/dL Procalcitonin (0.030-0.080) ng/mL Urine Color (YELLOW) Urine Appearance (CLEAR) Urine pH (5-6) Ur Specific [place] (1.005-1.025) Urine Protein (Negative) Urine Ketones (NEGATIVE) Urine Blood (0-5) Quentin/ul Urine Nitrite (NEGATIVE) Urine Bilirubin (NEGATIVE) Urine Urobilinogen (0-1) mg/dL Ur Leukocyte Esterase (NEGATIVE) Urine WBC (Auto) (0-5) /HPF Urine RBC (Auto) (0-2) /HPF U Hyaline Cast (Auto) (0-2) /LPF U Epithel Cells (Auto) (FEW) /HPF Urine Bacteria (Auto) (NEGATIVE) /HPF Urine Mucus (Auto) (NEGATIVE) /HPF Urine Culture Reflexed (NO) Urine Glucose (NEGATIVE) mg/dL SARS-CoV-2 (PCR) (NEGATIVE) Radiology Exams: Radiology Procedures Category Date Time Status CHEST 1 VIEW (PORTABLE) Stat Exams 08/19/21 14:21 Completed Assessment/Plan (1) Sepsis Current Visit: Yes Status: Acute Qualifiers: Sepsis type: Escherichia coli Sepsis acute organ dysfunction status: with acute organ dysfunction Severe sepsis acute organ dysfunction type: acute renal failure Severe sepsis shock status: without septic shock Assessment & Plan: Chief Complaint Diagnosis dysurea for 2-3 days Allergies Allergy/AdvReac Type Severity Reaction Status Date / Time ofloxacin [From Floxin] Allergy Verified 08/19/21 14:28 Sulfa (Sulfonamide Allergy Verified 08/19/21 14:28 Antibiotics) [Sulfa(Sulfonamide Antibiotics)] Vital Signs (Last 24 hours) Temp Pulse Resp BP Pulse Ox 08/20/21 06:53 97.8 F 87 16 136/63 99 08/20/21 04:00 97.4 F 81 16 146/72 99 08/19/21 23:20 97.1 F 86 16 115/54 99 08/19/21 21:11 99 08/19/21 19:50 97.9 F 105 H 18 123/73 95 08/19/21 18:05 105 H 18 123/73 95 08/19/21 16:02 108 H 20 134/75 97 08/19/21 15:52 117 H 18 134/75 99 08/19/21 14:51 122 H 22 151/94 99 08/19/21 14:08 97.9 F 143 H 28 H 146/76 99 Home Medications Medication Instructions Recorded Confirmed Last Taken Type Pantoprazole Sodium [Protonix] 40 mg PO DAILY 08/19/21 08/19/21 08/19/21 10:00 History Current Medications Generic Name Dose Route Start Last Admin Trade Name Freq PRN Reason Stop Dose Admin Hydrocodone Bitart/Acetaminophen 1 tab 08/19/21 21:05 08/19/21 23:09 [place] 5/325 Mg PO 08/24/21 21:04 1 tab Q6H PRN PRN Administration PAIN Allopurinol 300 mg 08/20/21 10:00 Zyloprim 300 Mg PO 09/19/21 09:59 DAILY NKECHI Apixaban 2.5 mg 08/19/21 22:00 08/19/21 23:09 Eliquis 2.5 Mg Tablet PO 09/18/21 21:59 2.5 mg BID NKECHI Administration Bumetanide 2 mg 08/20/21 10:00 Bumex 1 Mg PO 09/19/21 09:59 TID DIURETIC NKECHI Diclofenac Sodium 1 gm 08/19/21 21:15 Voltaren Gel TOP 09/18/21 21:14 TID PRN PRN BACK PAIN Sodium Chloride 1,000 mls @ 100 mls/hr 08/19/21 17:00 08/19/21 23:26 Sodium Chloride 0.9% 1000 Ml IV 09/18/21 16:59 100 mls/hr .Q10H NKECHI Administration Piperacillin Sod/Tazobactam 100 mls @ 200 mls/hr 08/20/21 08:00 Sod 2.25 gm/ Sodium Chloride IV 09/19/21 07:59 Q6HT NKECHI Levothyroxine Sodium 25 mcg 08/20/21 10:00 Synthroid 25 Mcg PO 09/19/21 09:59 DAILY NKECHI Levothyroxine Sodium 200 mcg 08/20/21 10:00 Synthroid 100 Mcg PO 09/19/21 09:59 DAILY NKECHI Magnesium Oxide 400 mg 08/19/21 22:00 08/19/21 23:10 Mag-Ox 400 PO 09/18/21 21:59 400 mg BID NKECHI Administration Metformin HCl 500 mg 08/20/21 08:00 Glucophage 500 Mg PO 09/19/21 07:59 BIDWM NKECHI Metolazone 2.5 mg 08/20/21 10:00 Zaroxolyn 2.5 Mg PO 09/19/21 09:59 DAILY NKECHI Metoprolol Succinate 50 mg 08/20/21 10:00 Toprol Xl 50 Mg PO 09/19/21 09:59 DAILY [facility] Multivitamins 1 tab 08/20/21 10:00 Melissa-Bee With C PO 09/19/21 09:59 DAILY NKECHI Nitroglycerin 0.4 mg 08/19/21 21:06 Nitrostat 0.4 Mg Tablet SL 09/18/21 21:05 Q5MIN PRN MR X 3 PRN CHEST PAIN Ondansetron HCl 4 mg 08/19/21 17:00 Zofran 4 Mg/2 Ml Vial IV 09/18/21 16:59 Q6H PRN PRN NAUSEA/VOMITING Pantoprazole Sodium 40 mg 08/20/21 10:00 Protonix 40mg Tablet PO 09/19/21 09:59 DAILY NKECHI Potassium Chloride 30 meq 08/19/21 22:00 08/19/21 23:08 Klor Con 10 Meq PO 09/18/21 21:59 30 meq BID NKECHI Administration Tamsulosin HCl 0.4 mg 08/20/21 10:00 Flomax 0.4 Mg PO 09/19/21 09:59 DAILY NKECHI Discontinued Medications Generic Name Dose Route Start Last Admin Trade Name Freq PRN Reason Stop Dose Admin Bumetanide 2 mg 08/19/21 22:00 08/19/21 23:09 Bumex 1 Mg PO 09/18/21 21:59 2 mg TID NKECHI Administration Sodium Chloride 1,000 mls @ 999 mls/hr 08/19/21 16:22 08/19/21 17:49 Sodium Chloride 0.9% 1000 Ml IV 08/19/21 17:22 Infused .Q1H1M STA Infusion Piperacillin Sod/Tazobactam 100 mls @ 200 mls/hr 08/19/21 16:22 08/19/21 16:38 Sod 3.375 gm/ Sodium Chloride IV 08/19/21 16:51 200 mls/hr STAT ONE Administration Sodium Chloride Confirm 08/19/21 16:28 Sodium Chloride 0.9% 1000 Ml Administered 08/19/21 16:29 Dose 1,000 mls @ ud .ROUTE .STK-MED ONE Sodium Chloride Confirm 08/19/21 16:30 Sodium Chloride 100ml Mini-Bag Plus Administered 08/19/21 16:31 Dose 100 mls @ ud IV .STK-MED ONE Piperacillin Sod/Tazobactam 100 mls @ 200 mls/hr 08/19/21 18:00 08/19/21 19:27 Sod 3.375 gm/ Sodium Chloride IV 08/22/21 17:59 Not Given Q6HT NKECHI Sodium Chloride 1,000 mls @ 999 mls/hr 08/19/21 17:07 08/19/21 19:28 Sodium Chloride 0.9% 1000 Ml IV 08/19/21 18:07 Not Given .Q1H1M STA Piperacillin Sod/Tazobactam 100 mls @ 200 mls/hr 08/20/21 00:00 08/19/21 23:25 Sod 3.375 gm/ Sodium Chloride IV 08/23/21 00:00 200 mls/hr Q8H NKECHI Administration Metoprolol Tartrate 5 mg 08/19/21 14:22 08/19/21 14:37 Lopressor 5 Mg/5 Ml Injection IV 08/19/21 14:23 5 mg STAT ONE Administration Metoprolol Tartrate Confirm 08/19/21 14:36 Lopressor 5 Mg/5 Ml Injection Administered 08/19/21 14:37 Dose 5 mg IV .STK-MED ONE Pantoprazole Sodium 40 mg 08/20/21 10:00 Protonix 40 Mg Iv IV 09/19/21 09:59 Q24H10 NKECHI Piperacillin Sod/Tazobactam Sod Confirm 08/19/21 16:28 Zosyn 3.375 Gm Vial Administered 08/19/21 16:29 Dose 3.375 gm IV .STK-MED ONE Piperacillin Sod/Tazobactam Sod Confirm 08/19/21 16:30 Zosyn 3.375 Gm Vial Administered 08/19/21 16:31 Dose 3.375 gm IV .STK-MED ONE Intake & Output (Last 24 hours) 08/17/21 08/18/21 08/19/21 08/20/21 11:59 11:59 11:59 11:59 Intake Total 987 Balance 987 Weight 62.2 kg Microbiology Results (Last 24 hours) 08/19/21 16:52 Blood Blood Culture Gram Stain - Pending 08/19/21 16:52 Blood Blood Culture - Pending 08/19/21 16:40 Blood Blood Culture Gram Stain - Pending 08/19/21 16:40 Blood Blood Culture - Pending 08/19/21 15:50 Urine, Catheterized Urine Culture - Pending Laboratory Results (Last 24 hours) 08/20/21 08/20/21 08/20/21 06:42 04:41 04:38 WBC RBC Hgb Hct MCV MCH MCHC RDW Plt Count MPV Gran % Eos # (Auto) Absolute Lymphs (auto) Absolute Monos (auto) Lymphocytes % Monocytes % Eosinophils % Basophils % Absolute Granulocytes Segmented Neutrophils Band Neutrophils Lymphocytes (Manual) Monocytes (Manual) Basophils # Toxic Granulation Platelet Estimate RBC Morphology Anisocytosis Macrocytosis PT INR APTT Sodium 137 Sodium Direct Potassium 3.5 Chloride 103 Carbon Dioxide 17 L Anion Gap 20.6 H BUN 34 H Venous BUN Creatinine 1.65 H Estimated GFR 31.7 Glucose 86 POC Glucometer 91 Lactic Acid 0.8 Calcium 8.8 Ionized Calcium Total Bilirubin 0.50 AST 19 ALT 9 Alkaline Phosphatase 175 H Troponin Troponin I Serum Total Protein 5.1 L Albumin 2.2 L Procalcitonin Urine Color Urine Appearance Urine pH Ur Specific [place] Urine Protein Urine Ketones Urine Blood Urine Nitrite Urine Bilirubin Urine Urobilinogen Ur Leukocyte Esterase Urine WBC (Auto) Urine RBC (Auto) U Hyaline Cast (Auto) U Epithel Cells (Auto) Urine Bacteria (Auto) Urine Mucus (Auto) Urine Culture Reflexed Urine Glucose SARS-CoV-2 (PCR) 08/20/21 08/20/21 08/19/21 04:38 04:38 21:03 WBC 12.5 H RBC 3.33 L Hgb 10.3 L Hct 32.1 L MCV 96.4 MCH 30.9 MCHC 32.1 RDW 20.0 H Plt Count 379 MPV 8.1 Gran % Eos # (Auto) Absolute Lymphs (auto) Absolute Monos (auto) Lymphocytes % Monocytes % Eosinophils % Basophils % Absolute Granulocytes Segmented Neutrophils 87 H Band Neutrophils Lymphocytes (Manual) 11 L Monocytes (Manual) 2 Basophils # Toxic Granulation Platelet Estimate NORMAL RBC Morphology ABNORMAL Anisocytosis Macrocytosis 1+ PT INR APTT Sodium Sodium Direct Potassium Chloride Carbon Dioxide Anion Gap BUN Venous BUN Creatinine Estimated GFR Glucose POC Glucometer 98 Lactic Acid Calcium Ionized Calcium Total Bilirubin AST ALT Alkaline Phosphatase Troponin Troponin I < 0.012 Serum Total Protein Albumin Procalcitonin Urine Color Urine Appearance Urine pH Ur Specific [place] Urine Protein Urine Ketones Urine Blood Urine Nitrite Urine Bilirubin Urine Urobilinogen Ur Leukocyte Esterase Urine WBC (Auto) Urine RBC (Auto) U Hyaline Cast (Auto) U Epithel Cells (Auto) Urine Bacteria (Auto) Urine Mucus (Auto) Urine Culture Reflexed Urine Glucose SARS-CoV-2 (PCR) 08/19/21 08/19/21 08/19/21 20:46 20:06 17:28 WBC RBC Hgb Hct MCV MCH MCHC RDW Plt Count MPV Gran % Eos # (Auto) Absolute Lymphs (auto) Absolute Monos (auto) Lymphocytes % Monocytes % Eosinophils % Basophils % Absolute Granulocytes Segmented Neutrophils Band Neutrophils Lymphocytes (Manual) Monocytes (Manual) Basophils # Toxic Granulation Platelet Estimate RBC Morphology Anisocytosis Macrocytosis PT INR APTT Sodium Sodium Direct Potassium Chloride Carbon Dioxide Anion Gap BUN Venous BUN Creatinine Estimated GFR Glucose POC Glucometer Lactic Acid Calcium Ionized Calcium Total Bilirubin AST ALT Alkaline Phosphatase Troponin Troponin I < 0.012 < 0.012 Serum Total Protein Albumin Procalcitonin 30.900 H* Urine Color Urine Appearance Urine pH Ur Specific [place] Urine Protein Urine Ketones Urine Blood Urine Nitrite Urine Bilirubin Urine Urobilinogen Ur Leukocyte Esterase Urine WBC (Auto) Urine RBC (Auto) U Hyaline Cast (Auto) U Epithel Cells (Auto) Urine Bacteria (Auto) Urine Mucus (Auto) Urine Culture Reflexed Urine Glucose SARS-CoV-2 (PCR) 08/19/21 08/19/21 08/19/21 17:02 15:50 14:36 WBC RBC Hgb Hct MCV MCH MCHC RDW Plt Count MPV Gran % Eos # (Auto) Absolute Lymphs (auto) Absolute Monos (auto) Lymphocytes % Monocytes % Eosinophils % Basophils % Absolute Granulocytes Segmented Neutrophils Band Neutrophils Lymphocytes (Manual) Monocytes (Manual) Basophils # Toxic Granulation Platelet Estimate RBC Morphology Anisocytosis Macrocytosis PT INR APTT Sodium Sodium Direct Potassium Chloride Carbon Dioxide Anion Gap BUN Venous BUN Creatinine Estimated GFR Glucose POC Glucometer Lactic Acid 6.8 H Calcium Ionized Calcium Total Bilirubin AST ALT Alkaline Phosphatase Troponin Troponin I Serum Total Protein Albumin Procalcitonin Urine Color DARY Urine Appearance CLOUDY Urine pH 5.0 Ur Specific [place] 1.014 Urine Protein 30 Urine Ketones TRACE Urine Blood SMALL Urine Nitrite POSITIVE Urine Bilirubin NEGATIVE Urine Urobilinogen NEGATIVE Ur Leukocyte Esterase LARGE Urine WBC (Auto) >100 Urine RBC (Auto) 6-10 U Hyaline Cast (Auto) 11-25 U Epithel Cells (Auto) NONE Urine Bacteria (Auto) FEW Urine Mucus (Auto) SLIGHT Urine Culture Reflexed YES Urine Glucose NEGATIVE SARS-CoV-2 (PCR) NEGATIVE 08/19/21 08/19/21 08/19/21 14:15 14:15 14:15 WBC RBC Hgb Hct MCV MCH MCHC RDW Plt Count MPV Gran % Eos # (Auto) Absolute Lymphs (auto) Absolute Monos (auto) Lymphocytes % Monocytes % Eosinophils % Basophils % Absolute Granulocytes Segmented Neutrophils Band Neutrophils Lymphocytes (Manual) Monocytes (Manual) Basophils # Toxic Granulation Platelet Estimate RBC Morphology Anisocytosis Macrocytosis PT 15.1 H INR 1.28 APTT 38.1 H Sodium Sodium Direct 133 L Potassium 4.3 Chloride 100 Carbon Dioxide 12 L Anion Gap BUN Venous BUN 44 H Creatinine 2.7 H Estimated GFR Glucose 176 H POC Glucometer Lactic Acid Calcium Ionized Calcium 1.16 Total Bilirubin AST ALT Alkaline Phosphatase Troponin 0.01 Troponin I Serum Total Protein Albumin Procalcitonin Urine Color Urine Appearance Urine pH Ur Specific [place] Urine Protein Urine Ketones Urine Blood Urine Nitrite Urine Bilirubin Urine Urobilinogen Ur Leukocyte Esterase Urine WBC (Auto) Urine RBC (Auto) U Hyaline Cast (Auto) U Epithel Cells (Auto) Urine Bacteria (Auto) Urine Mucus (Auto) Urine Culture Reflexed Urine Glucose SARS-CoV-2 (PCR) 08/19/21 08/19/21 14:15 01:00 WBC 18.2 H RBC 3.84 L Hgb 11.8 L Hct 36.8 MCV 95.8 MCH 30.7 MCHC 32.1 RDW 19.8 H Plt Count 551 H MPV 8.8 Gran % 85.1 H Eos # (Auto) 0.02 Absolute Lymphs (auto) 1.78 Absolute Monos (auto) 0.88 Lymphocytes % 9.8 L Monocytes % 4.8 Eosinophils % 0.1 Basophils % 0.2 Absolute Granulocytes 15.51 H Segmented Neutrophils 93 H Band Neutrophils 1 Lymphocytes (Manual) 6 L Monocytes (Manual) Basophils # 0.03 Toxic Granulation 1+ Platelet Estimate INCREASED RBC Morphology ABNORMAL Anisocytosis 1+ Macrocytosis PT INR APTT Sodium Sodium Direct Potassium Chloride Carbon Dioxide Anion Gap BUN Venous BUN Creatinine Estimated GFR Glucose POC Glucometer Lactic Acid Calcium Ionized Calcium Total Bilirubin AST ALT Alkaline Phosphatase Troponin Troponin I < 0.012 Serum Total Protein Albumin Procalcitonin Urine Color Urine Appearance Urine pH Ur Specific [place] Urine Protein Urine Ketones Urine Blood Urine Nitrite Urine Bilirubin Urine Urobilinogen Ur Leukocyte Esterase Urine WBC (Auto) Urine RBC (Auto) U Hyaline Cast (Auto) U Epithel Cells (Auto) Urine Bacteria (Auto) Urine Mucus (Auto) Urine Culture Reflexed Urine Glucose SARS-CoV-2 (PCR) Orders (Last 24 hours) Category Date Time Status Bedrest ROUTINE Activity 08/19/21 17:01 Active EKG-ER Only STAT Care 08/19/21 14:[address] in Observation ROUTINE Care 08/19/21 17:00 Active 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 ROUTINE Cons 08/19/21 20:44 Active CHEST 1 VIEW (PORTABLE) Stat Exams 08/19/21 14:21 Completed BLOOD CULTURE Stat Lab 08/19/21 16:52 Received CBC W DIFF AM.LAB Lab 08/20/21 04:38 Completed CBC W DIFF Stat Lab 08/19/21 14:15 Completed CMP AM.LAB Lab 08/20/21 04:38 Completed CULTURE,URINE Stat Lab 08/19/21 15:50 Received Lactic Acid AM.LAB Lab 08/20/21 04:41 Completed Lactic Acid Stat Lab 08/19/21 14:36 Completed Manual Differential NC Routine Lab 08/20/21 04:38 Completed Manual Differential NC Stat Lab 08/19/21 14:15 Completed POCT GLUCOSE Stat Lab 08/19/21 21:03 Completed POCT GLUCOSE Stat Lab 08/20/21 06:42 Completed PROCALCITONIN Stat Lab 08/19/21 20:06 Completed PROTIME WITH INR Stat Lab 08/19/21 14:15 Completed PTT Stat Lab 08/19/21 14:15 Completed TROPONIN Q3H Lab 08/19/21 17:28 Completed TROPONIN Q3H Lab 08/19/21 20:46 Completed TROPONIN Q3H Lab 08/20/21 04:38 Completed UA W/RFX UR CULTURE Stat Lab 08/19/21 15:50 Completed Allopurinol 300 mg [Zyloprim 300 mg] Med 08/20/21 10:00 Active 300 mg PO DAILY Apixaban [Eliquis 2.5 mg Tablet] Med 08/19/21 22:00 Active 2.5 mg PO BID Bumetanide 1 mg [Bumex 1 mg] Med 08/19/21 22:00 Discontinued 2 mg PO TID Bumetanide 1 mg [Bumex 1 mg] Med 08/20/21 10:00 Active 2 mg PO TID DIURETIC Diclofenac Sodium Gel [Voltaren GEL] Med 08/19/21 21:15 Active 1 gm TOP TID PRN PRN Hydrocodone/APAP 5/325 [[place] 5/325 mg] Med 08/19/21 21:05 Active 1 tab PO Q6H PRN PRN Levothyroxine Sodium 100 Mcg [Synthroid 100 Mcg] Med 08/20/21 10:00 Active 200 mcg PO DAILY Levothyroxine Sodium 25 Mcg [Synthroid 25 Mcg] Med 08/20/21 10:00 Active 25 mcg PO DAILY Magnesium Oxide 400 mg [Mag-Ox 400] Med 08/19/21 22:00 Active 400 mg PO BID Metformin HCl 500 mg [Glucophage 500 MG] Med 08/20/21 08:00 Hold 500 mg PO BIDWM Metolazone 2.5 mg [Zaroxolyn 2.5 MG] Med 08/20/21 10:00 Active 2.5 mg PO DAILY Metoprolol Succinate 50 mg [Toprol Xl 50 MG] Med 08/20/21 10:00 Active 50 mg PO DAILY Metoprolol Tartrate 5 mg/5 ml* [Lopressor 5 mg/5 ml Med 08/19/21 14:36 Discontinued Injection] 5 mg IV .STK-MED ONE Metoprolol Tartrate 5 mg/5 ml* [Lopressor 5 mg/5 ml Med 08/19/21 14:22 Discontinued Injection] 5 mg IV STAT ONE NaCl 0.9% 100 ml Mini-Bag Plus [Sodium Chloride 100ML Med 08/19/21 16:30 Discontinued MINI-BAG PLUS] 100 ml IV UD NaCl 0.9% 1000 ml [Sodium Chloride 0.9% 1000 ML] 1,000 Med 08/19/21 16:28 Discontinued ml .ROUTE UD NaCl 0.9% 1000 ml [Sodium Chloride 0.9% 1000 ML] 1,000 Med 08/19/21 17:00 A ctive ml IV 100 mls/hr NaCl 0.9% 1000 ml [Sodium Chloride 0.9% 1000 ML] 1,000 Med 08/19/21 16:22 Discontinued ml IV 999 mls/hr NaCl 0.9% 1000 ml [Sodium Chloride 0.9% 1000 ML] 1,000 Med 08/19/21 17:07 Discontinued ml IV 999 mls/hr Nitroglycerin 0.4 mg Tablet [Nitrostat 0.4 MG Tablet Med 08/19/21 21:06 Active ] 0.4 mg SL Q5MIN PRN MR X 3 PRN Ondansetron HCl 4 mg/2 ml [Zofran 4 MG/2 ML VIAL] Med 08/19/21 17:00 Active 4 mg IV Q6H PRN PRN PANTOPRAZOLE 40 mg Tablet [Protonix 40MG Tablet] Med 08/20/21 10:00 Active 40 mg PO DAILY Pantoprazole 40 mg [Protonix 40 mg IV] Med 08/20/21 10:00 Discontinued 40 mg IV Q24H10 Piperacillin/Tazobactam 3.375G [Zosyn 3.375 GM Vial] Med 08/19/21 16:28 Discontinued 3.375 gm IV .STK-MED ONE Piperacillin/Tazobactam 3.375G [Zosyn 3.375 GM Vial] Med 08/19/21 16:30 Discontinued 3.375 gm IV .STK-MED ONE Piperacillin/Tazobactam 3.375G [Zosyn 3.375 GM Vial] 3. Med 08/19/21 18:00 Discontinued 375 gm NaCl 0.9% 100 ml Mini-Bag Plus [Sodium Chloride 100ML MINI-BAG PLUS] 100 ml IV Q6HT Piperacillin/Tazobactam 3.375G [Zosyn 3.375 GM Vial] 3. Med 08/20/21 00:00 Discontinued 375 gm NaCl 0.9% 100 ml Mini-Bag Plus [Sodium Chloride 100ML MINI-BAG PLUS] 100 ml IV Q8H Piperacillin/Tazobactam 3.375G [Zosyn 3.375 GM Vial] 3. Med 08/19/21 16:22 Discontinued 375 gm NaCl 0.9% 100 ml Mini-Bag Plus [Sodium Chloride 100ML MINI-BAG PLUS] 100 ml IV STAT Piperacillin/Tazobactam [Zosyn 2.25 GM] 2.25 gm Med 08/20/21 08:00 Active NaCl 0.9% 100 ml Mini-Bag Plus [Sodium Chloride 100ML MINI-BAG PLUS] 100 ml IV Q6HT Potassium Chloride 10 Meq Tab* [Klor Con 10 MEQ] Med 08/19/21 22:00 Active 30 meq PO BID Tamsulosin HCl 0.4 mg [Flomax 0.4 MG] Med 08/20/21 10:00 Active 0.4 mg PO DAILY Vitamin B Comp W-C [Melissa-Bee with C] Med 08/20/21 10:00 Active 1 tab PO DAILY PT Screen per Nursing Assess ONCE PT 08/19/21 20:44 Active Patient Care Notes (Last 24 hours) 08/19/21 23:37 Nursing Note by Rashida Garcia Pt's 4 rings were removed, placed in a denture cup, with pt label and placed on bedside table. pt aware Initialized on 08/19/21 23:37 - END OF NOTE 08/19/21 21:30 Nursing Note by Rashida Garcia Dr notified of critical lab: procalcitonin 30.9. no new orders received. Initialized on 08/19/21 21:30 - END OF NOTE 08/19/21 20:49 Nursing Note by Rashida Garcia Dr notified for pt's home meds. order received to continue all home meds. Last 24 hours events noted. Patient is stable at this point of time. (2) UTI (urinary tract infection) Current Visit: Yes Status: Acute Qualifiers: Urinary tract infection type: acute pyelonephritis Code(s): N39.0 - URINARY TRACT INFECTION, SITE NOT SPECIFIED (3) Atrial fibrillation Current Visit: Yes Status: Chronic Qualifiers: Atrial fibrillation type: paroxysmal Code(s): I48.91 - UNSPECIFIED ATRIAL FIBRILLATION (4) Diabetic neuropathy associated with type 2 diabetes mellitus Current Visit: Yes Status: Chronic Qualifiers: Diabetes mellitus complication detail: diabetic polyneuropathy Qualified Code(s): E11.42 - Type 2 diabetes mellitus with diabetic polyneuropathy Code(s): E11.40 - TYPE 2 DIABETES MELLITUS WITH DIABETIC NEUROPATHY, UNSP
[2021-08-20] MEDS: Zosyn 2.25 GM 2.25 GM in Sodium Chloride 100ML MINI-BAG PLUS 100 ML IV SCH ×4 (08:19→23:54)
[2021-08-20] MEDS: Toprol Xl 50 MG PO SCH (09:17)
[2021-08-20] MEDS: MAG-OX 400 PO SCH ×2 (09:18→22:06)
[2021-08-20] MEDS: ELIQUIS 2.5 MG TABLET PO SCH ×2 (09:18→22:06)
[2021-08-20] MEDS: ZYLOPRIM 300 MG PO SCH (09:18)
[2021-08-20] MEDS: Klor Con 10 MEQ PO SCH ×2 (09:18→22:05)
[2021-08-20] MEDS: Flomax 0.4 MG PO SCH (09:18)
[2021-08-20] MEDS: SYNTHROID 100 MCG PO SCH (09:19)
[2021-08-20] MEDS: SYNTHROID 25 MCG PO SCH (09:19)
[2021-08-20] MEDS: Protonix 40MG Tablet PO SCH (09:19)
[2021-08-20] MEDS: VITA-BEE WITH C PO SCH (09:19)
[2021-08-20] MEDS ORDERED: VITAMIN B COMPLEX PO SCH (10:00)
[2021-08-20] MEDS ORDERED: METOPROLOL SUCCINATE 50 MG PO SCH (10:00)
[2021-08-20] MEDS ORDERED: NON-FORMULARY ITEM (Levothyroxine Sodium [Synthroid] 200 MCG) PO SCH (10:00)
[2021-08-20] MEDS ORDERED: PROTONIX 40 MG IV IV SCH (10:00)
[2021-08-20] MEDS: NORCO 5/325 MG PO PRN ×2 (10:03→22:07)
[2021-08-20] MEDS: BUMEX 1 MG PO SCH ×3 (10:21→17:21)
[2021-08-20] MEDS: Zaroxolyn 2.5 MG PO SCH (10:21)
[2021-08-20] MEDS: Sodium Chloride 0.9% 1000 ML 1,000 ML IV SCH (17:23)
[2021-08-21 05:21] LABS: Hematocrit 30.7 % (35-47); Hemoglobin 9.9 gm/dl (12.0-16.0); Mean Cell Volume 96.2 fl (78-100); Mean Corpuscular Hgb Concent. 32.2 g/dl (32-36); Mean Platelet Volume 8.4 fl (7.5-11.0); Platelet Count 366 K/mm3 (150-450); Red Blood Count 3.19 M/mm3 (4.1-5.4); Red Cell Distribution Width 19.6 % (11.5-14.0)
[2021-08-21] MEDS: Zosyn 2.25 GM 2.25 GM in Sodium Chloride 100ML MINI-BAG PLUS 100 ML IV SCH ×3 (05:46→18:47)
[2021-08-21] MEDS: Sodium Chloride 0.9% 1000 ML 1,000 ML IV SCH (05:47)
[2021-08-21 06:14] LABS: ANISOCYTOSIS 1+; BAND 1 % (0.0-2.0); Lymphocytes 16 % (24-44); Macrocytosis 1+; Monocyte 3 % (0.0-12.0); Neutrophils 80 % (36.0-66.0); Platelet Estimate NORMAL (NORMAL); Total Cells Counted 100
[2021-08-21 06:57] LABS: ALBUMIN 2.3 g/dL (3.5-5.0); BILIRUBIN,TOTAL 0.4 mg/dL (0.2-1.3); Creatinine 1 1.25 mg/dL (0.52-1.04); EST GLOMERULAR FILTRATION RATE 43.6 ML/MIN; Total Protein 5.3 g/dL (6.3-8.2)
[2021-08-21 07:10] LABS: Potassium 2.3 mmol/L (3.5-5.1)
[2021-08-21 07:11] LABS: ANION GAP 21.3 MEQ/L (5-15); PROCALCITONIN 10.5 ng/mL (0.030-0.080)
[2021-08-21] MEDS: POTASSIUM CHLORIDE 20 mEq IN WATER 100ML 20 MEQ/100 ML BAG IV SCH ×4 (08:42→20:59)
[2021-08-21] MEDS: SYNTHROID 100 MCG PO SCH (09:07)
[2021-08-21] MEDS: Klor Con 10 MEQ PO SCH ×2 (09:07→22:37)
[2021-08-21] MEDS: Flomax 0.4 MG PO SCH (09:07)
[2021-08-21] MEDS: Zaroxolyn 2.5 MG PO SCH (09:07)
[2021-08-21] MEDS: Protonix 40MG Tablet PO SCH (09:07)
[2021-08-21] MEDS: BUMEX 1 MG PO SCH ×3 (09:07→16:19)
[2021-08-21] MEDS: Toprol Xl 50 MG PO SCH (09:08)
[2021-08-21] MEDS: SYNTHROID 25 MCG PO SCH (09:08)
[2021-08-21] MEDS: ZYLOPRIM 300 MG PO SCH (09:08)
[2021-08-21] MEDS: ELIQUIS 2.5 MG TABLET PO SCH ×2 (09:08→22:37)
[2021-08-21] MEDS: VITA-BEE WITH C PO SCH (09:08)
[2021-08-21] MEDS: MAG-OX 400 PO SCH ×2 (09:16→22:37)
[2021-08-21] MEDS: NORCO 5/325 MG PO PRN (14:22)
[2021-08-21] MEDS: Lomotil PO PRN (16:19)
[2021-08-21] MEDS ORDERED: Magnesium 1 Gm / 100 Ml D5W*** 100 ML IV ONE (16:53)
[2021-08-21] MEDS ORDERED: Aldactone 25 MG PO SCH (17:30)
[2021-08-21] MEDS: NORCO 5/325 MG PO SCH (20:31)
[2021-08-22] MEDS: Zosyn 2.25 GM 2.25 GM in Sodium Chloride 100ML MINI-BAG PLUS 100 ML IV SCH ×4 (00:22→18:23)
[2021-08-22 02:10] LABS: Hematocrit 28.4 % (35-47); Hemoglobin 9.1 gm/dl (12.0-16.0); Mean Cell Volume 96.6 fl (78-100); Mean Platelet Volume 7.9 fl (7.5-11.0); Platelet Count 309 K/mm3 (150-450); Red Blood Count 2.94 M/mm3 (4.1-5.4); Red Cell Distribution Width 19.6 % (11.5-14.0); White Blood Count 10.9 K/mm3 (4.0-10.5)
[2021-08-22 02:20] LABS: ALBUMIN 2.2 g/dL (3.5-5.0); BILIRUBIN,TOTAL 0.5 mg/dL (0.2-1.3); Calcium 7.8 mg/dL (8.4-10.2); Creatinine 1 1.08 mg/dL (0.52-1.04); EST GLOMERULAR FILTRATION RATE 51.6 ML/MIN
[2021-08-22 02:21] LABS: Potassium 2.8 mmol/L (3.5-5.1)
[2021-08-22] MEDS: Sodium Chloride 0.9% 1000 ML 1,000 ML IV SCH (02:28)
[2021-08-22] MEDS: NORCO 5/325 MG PO SCH ×4 (02:31→20:32)
[2021-08-22] MEDS ORDERED: Magnesium 1 Gm / 100 Ml D5W*** 100 ML IV ONE (03:06)
[2021-08-22 04:55] LABS: ANISOCYTOSIS 2+; Eosinophil 2 % (0.00-3.0); Lymphocytes 23 % (24-44); Monocyte 5 % (0.0-12.0); Neutrophils 70 % (36.0-66.0); Platelet Estimate NORMAL (NORMAL); Total Cells Counted 100
[2021-08-22] MEDS: POTASSIUM CHLORIDE 20 mEq IN WATER 100ML 20 MEQ/100 ML BAG IV SCH ×2 (05:31→07:59)
--- NOTE | 2021-08-22 08:06 | PCM.NOTE ---
Date and Time: 08/22/21 0803 Subjective Assessment: doing better - Review of Systems Constitutional: No Fever, No Chills Eyes: No Symptoms Ears, Nose, & Throat: No Symptoms Respiratory: No Cough, No Short Of Breath Cardiac: No Chest Pain, No Edema, No Syncope Abdominal/Gastrointestinal: No Abdominal Pain, No Nausea, No Vomiting, No Diarrhea Genitourinary Symptoms: No Dysuria Musculoskeletal: No Back Pain, No Neck Pain Skin: No Rash Neurological: No Dizziness, No Focal Weakness, No Sensory Changes Psychological: No Symptoms Endocrine: No Symptoms Hematologic/Lymphatic: No Symptoms Immunological/Allergic: No Symptoms Objective Exam General Appearance: no apparent distress, alert Neurologic Exam: alert, oriented x 3, cooperative, normal mood/affect, nml cerebellar function, sensation nml, No motor deficits Skin Exam: normal color, warm, dry Wound Assessment: Skin/Wound Assessment Wound/Incision Assessment Start: 08/19/21 20:44 Text: Status: Active Freq: Q6H Protocol: Document 08/22/21 02:00 BAUTISTA (Rec: 08/22/21 02:20 [id number]) Wound/Incision Assessment Heel Wound Assessment Shift Assessment Wound Type Pressure Ulcer Wound Stage Stage I General Appearance Open to air Surrounding Tissue Milroy Comment bilateral heels reddened, non blanchable, barrier cream applied prn Lower Abdomen Wound Assessment Shift Assessment Wound Type Skin Tear Wound Stage Non Pressure Wound General Appearance Open to air Comment sm open area, barrier cream applied prn Right Buttock Wound Assessment Shift Assessment Wound Type Pressure Ulcer Wound Stage Stage II Drainage Amount Minimal General Appearance Open to air Length (cm) (cm) 0.9 Width (cm) (cm) 0.6 Wound Bed Greatest Portion Shiny Wound Bed Lesser Portion Red (Granulation) Surrounding Tissue Bright Red,Dark Red Comment barrier cream applied. Left Buttock Wound Assessment Shift Assessment Wound Type Pressure Ulcer Wound Stage Stage III Drainage Amount Minimal Drainage Description Sanguineous General Appearance Open to air Length (cm) (cm) 6.3 Width (cm) (cm) 4.4 Wound Bed Greatest Portion Red (Granulation) Wound Bed Lesser Portion Red (Granulation),Shiny Surrounding Tissue Bright Red,Dark Red Comment barrier cream applied. Wound Photo Photo Taken Yes Date: 08/19/21 Time: 18:45 Comment: previous shift Eye Exam: PERRL, EOMI, eyes nml inspection Ears, Nose, Throat Exam: normal ENT inspection, pharynx normal, moist mucous membranes Neck Exam: normal inspection, non-tender, supple, full range of motion Respiratory Exam: normal breath sounds, lungs clear, No respiratory distress Cardiovascular Exam: regular rate/rhythm, normal heart sounds Gastrointestinal/Abdomen Exam: soft, No tenderness, No mass Extremity Exam: normal inspection, normal range of motion Back Exam: normal inspection, normal range of motion, No CVA tenderness, No vertebral tenderness Pelvic Exam: deferred Rectal Exam: deferred OBJECTIVE DATA Vital Signs: Vital Signs - 24 hr Temp Pulse Resp BP Pulse Ox 08/22/21 07:21 97.5 F 86 16 129/61 99 08/22/21 04:00 97.0 F 77 18 143/67 99 08/22/21 00:00 97.5 F 84 16 124/58 99 08/21/21 20:00 98.6 F 96 H 16 131/66 99 08/21/21 16:00 97.7 F 80 18 131/60 99 08/21/21 11:40 98.0 F 75 16 127/57 100 Pain Assessment - Last Documented Pain Intensity 5 Pain Scale Used 0-10 Pain Scale Intake and Output: Intake & Output 08/19/21 08/20/21 08/21/21 08/22/21 11:59 11:59 11:59 11:59 Intake Total 987 2468 2378 Output Total 2125 2800 Balance 987 343 -422 Weight 62.2 kg 62.2 kg Lab Results: Lab Results-Last 24 Hours 08/21/21 08/21/21 08/21/21 Range/Units 11:27 16:15 16:15 WBC (4.0-10.5) K/mm3 RBC (4.1-5.4) M/mm3 Hgb (12.0-16.0) gm/dl Hct (35-47) % MCV (78-100) fl MCH (26-32) pg MCHC (32-36) g/dl RDW (11.5-14.0) % Plt Count (150-450) K/mm3 MPV (7.5-11.0) fl Segmented Neutrophils (36.0-66.0) % Lymphocytes (Manual) (24-44) % Monocytes (Manual) (0.0-12.0) % Eosinophils (Manual) (0.00-3.0) % Platelet Estimate (NORMAL) RBC Morphology Anisocytosis Sodium (137-145) mmol/L Potassium 2.4 L* (3.5-5.1) mmol/L Chloride (98-107) mmol/L Carbon Dioxide (22-30) mmol/L Anion Gap (5-15) MEQ/L BUN (7-17) mg/dL Creatinine (0.52-1.04) mg/dL Estimated GFR ML/MIN Glucose (74-106) mg/dL POC Glucometer 143 H (74 to 106) mg/dL Calcium (8.4-10.2) mg/dL Magnesium 1.2 L (1.6-2.3) mg/dL Total Bilirubin (0.2-1.3) mg/dL AST (14-36) U/L ALT (0-35) U/L Alkaline Phosphatase (38-126) U/L Serum Total Protein (6.3-8.2) g/dL Albumin (3.5-5.0) g/dL 08/21/21 08/22/21 08/22/21 Range/Units 16:19 00:28 01:50 WBC 10.9 H (4.0-10.5) K/mm3 RBC 2.94 L (4.1-5.4) M/mm3 Hgb 9.1 L (12.0-16.0) gm/dl Hct 28.4 L (35-47) % MCV 96.6 (78-100) fl MCH 31.0 (26-32) pg MCHC 32.0 (32-36) g/dl RDW 19.6 H (11.5-14.0) % Plt Count 309 (150-450) K/mm3 MPV 7.9 (7.5-11.0) fl Segmented Neutrophils 70 H (36.0-66.0) % Lymphocytes (Manual) 23 L (24-44) % Monocytes (Manual) 5 (0.0-12.0) % Eosinophils (Manual) 2 (0.00-3.0) % Platelet Estimate NORMAL (NORMAL) RBC Morphology ABNORMAL Anisocytosis 2+ Sodium (137-145) mmol/L Potassium (3.5-5.1) mmol/L Chloride (98-107) mmol/L Carbon Dioxide (22-30) mmol/L Anion Gap (5-15) MEQ/L BUN (7-17) mg/dL Creatinine (0.52-1.04) mg/dL Estimated GFR ML/MIN Glucose (74-106) mg/dL POC Glucometer 108 H 121 H (74 to 106) mg/dL Calcium (8.4-10.2) mg/dL Magnesium (1.6-2.3) mg/dL Total Bilirubin (0.2-1.3) mg/dL AST (14-36) U/L ALT (0-35) U/L Alkaline Phosphatase (38-126) U/L Serum Total Protein (6.3-8.2) g/dL Albumin (3.5-5.0) g/dL 08/22/21 08/22/21 Range/Units 01:50 07:03 WBC (4.0-10.5) K/mm3 RBC (4.1-5.4) M/mm3 Hgb (12.0-16.0) gm/dl Hct (35-47) % MCV (78-100) fl MCH (26-32) pg MCHC (32-36) g/dl RDW (11.5-14.0) % Plt Count (150-450) K/mm3 MPV (7.5-11.0) fl Segmented Neutrophils (36.0-66.0) % Lymphocytes (Manual) (24-44) % Monocytes (Manual) (0.0-12.0) % Eosinophils (Manual) (0.00-3.0) % Platelet Estimate (NORMAL) RBC Morphology Anisocytosis Sodium 138 (137-145) mmol/L Potassium 2.8 L* (3.5-5.1) mmol/L Chloride 103 (98-107) mmol/L Carbon Dioxide 23 (22-30) mmol/L Anion Gap 15.0 (5-15) MEQ/L BUN 20 H (7-17) mg/dL Creatinine 1.08 H (0.52-1.04) mg/dL Estimated GFR 51.6 ML/MIN Glucose 113 H (74-106) mg/dL POC Glucometer 120 H (74 to 106) mg/dL Calcium 7.8 L (8.4-10.2) mg/dL Magnesium (1.6-2.3) mg/dL Total Bilirubin 0.50 (0.2-1.3) mg/dL AST 21 (14-36) U/L ALT 10 (0-35) U/L Alkaline Phosphatase 154 H (38-126) U/L Serum Total Protein 5.0 L (6.3-8.2) g/dL Albumin 2.2 L (3.5-5.0) g/dL Multi-Disciplinary Progress Notes: Multi-Disciplinary Progress Notes 08/21/21 09:04 Case Management Note by Gaby Ludwig REVIEWED CHART- DO CHANGE IN DC NEEDS AT THIS TIME Initialized on 08/21/21 09:04 - END OF NOTE Assessment/Plan (1) Sepsis Current Visit: Yes Status: Acute Qualifiers: Sepsis type: Escherichia coli Sepsis acute organ dysfunction status: with acute organ dysfunction Severe sepsis acute organ dysfunction type: acute renal failure Acute renal failure type: unspecified Severe sepsis shock status: without septic shock Qualified Code(s): A41.51 - Sepsis due to Escherichia coli [E. coli]; R65.20 - Severe sepsis without septic shock; N17.9 - Acute kidney failure, unspecified Assessment & Plan: doing better (2) UTI (urinary tract infection) Current Visit: Yes Status: Acute Qualifiers: Urinary tract infection type: acute pyelonephritis Code(s): N39.0 - URINARY TRACT INFECTION, SITE NOT SPECIFIED (3) Atrial fibrillation Current Visit: Yes Status: Chronic Qualifiers: Atrial fibrillation type: paroxysmal Code(s): I48.91 - UNSPECIFIED ATRIAL FIBRILLATION (4) Diabetic neuropathy associated with type 2 diabetes mellitus Current Visit: Yes Status: Chronic Qualifiers: Diabetes mellitus complication detail: diabetic polyneuropathy Qualified Code(s): E11.42 - Type 2 diabetes mellitus with diabetic polyneuropathy Code(s): E11.40 - TYPE 2 DIABETES MELLITUS WITH DIABETIC NEUROPATHY, UNSP (5) Hypokalemia due to excessive renal loss of potassium Current Visit: Yes Status: Acute Assessment & Plan: k replacement Code(s): E87.6 - HYPOKALEMIA
[2021-08-22] MEDS: ZYLOPRIM 300 MG PO SCH (08:52)
[2021-08-22] MEDS: Klor Con 10 MEQ PO SCH ×2 (08:52→22:16)
[2021-08-22] MEDS: Aldactone 25 MG PO SCH ×2 (08:53→18:23)
[2021-08-22] MEDS: ELIQUIS 2.5 MG TABLET PO SCH ×2 (08:53→22:17)
[2021-08-22] MEDS: Flomax 0.4 MG PO SCH (08:53)
[2021-08-22] MEDS: SYNTHROID 100 MCG PO SCH (08:53)
[2021-08-22] MEDS: SYNTHROID 25 MCG PO SCH (08:53)
[2021-08-22] MEDS: Toprol Xl 50 MG PO SCH (08:53)
[2021-08-22] MEDS: Zaroxolyn 2.5 MG PO SCH (08:53)
[2021-08-22] MEDS: MAG-OX 400 PO SCH ×2 (08:54→22:39)
[2021-08-22] MEDS: Protonix 40MG Tablet PO SCH (08:54)
[2021-08-22] MEDS: VITA-BEE WITH C PO SCH (08:54)
[2021-08-22] MEDS: Lomotil PO PRN (11:32)
[2021-08-22 16:55] LABS: 027 TOX PROD PRESUMPTIVE NEGATIVE (NEGATIVE); TOXIGENIC C. DIFF ORG NEGATIVE (NEGATIVE)
[2021-08-23] MEDS: Zosyn 2.25 GM 2.25 GM in Sodium Chloride 100ML MINI-BAG PLUS 100 ML IV SCH ×3 (00:02→13:08)
[2021-08-23] MEDS: NORCO 5/325 MG PO SCH ×2 (03:52→07:56)
[2021-08-23 08:46] VITALS: O2SAT 99
[2021-08-23] MEDS: Klor Con 10 MEQ PO SCH (09:48)
[2021-08-23] MEDS: Toprol Xl 50 MG PO SCH (09:48)
[2021-08-23] MEDS: SYNTHROID 100 MCG PO SCH (09:48)
[2021-08-23] MEDS: ELIQUIS 2.5 MG TABLET PO SCH (09:49)
[2021-08-23] MEDS: Protonix 40MG Tablet PO SCH (09:49)
[2021-08-23] MEDS: Zaroxolyn 2.5 MG PO SCH (09:49)
[2021-08-23] MEDS: Flomax 0.4 MG PO SCH (09:49)
[2021-08-23] MEDS: SYNTHROID 25 MCG PO SCH (09:49)
[2021-08-23] MEDS: Aldactone 25 MG PO SCH (09:49)
[2021-08-23] MEDS: ZYLOPRIM 300 MG PO SCH (09:49)
[2021-08-23] MEDS: MAG-OX 400 PO SCH (09:49)
[2021-08-23] MEDS: VITA-BEE WITH C PO SCH (09:50)
--- NOTE | 2021-08-23 12:51 | PCM.DS ---
Discharge Summary Date of Admission: 08/19/21 20:23 Admitting Physician: TRINH MINAYA Primary Care Provider: TRINH MINAYA Allergies Allergies ofloxacin [From Floxin] Allergy (Verified 08/19/21 14:28) Sulfa (Sulfonamide Antibiotics) [Sulfa(Sulfonamide Antibiotics)] Allergy (Verified 08/19/21 14:28) Hospital Summary - Hospital Course Hospital Course: Chief Complaint Diagnosis SEPSIS, ACUTE PYELONEPHRITIS Allergies Allergy/AdvReac Type Severity Reaction Status Date / Time ofloxacin [From Floxin] Allergy Verified 08/19/21 14:28 Sulfa (Sulfonamide Allergy Verified 08/19/21 14:28 Antibiotics) [Sulfa(Sulfonamide Antibiotics)] Vital Signs (Last 24 hours) Temp Pulse Resp BP Pulse Ox 08/23/21 08:00 97.7 F 80 17 137/61 99 08/23/21 03:47 97.5 F 77 16 135/62 100 08/23/21 00:00 98.5 F 80 16 130/60 100 08/22/21 20:00 99.1 F 83 16 127/62 97 08/22/21 16:00 97.7 F 88 16 142/72 98 Home Medications Medication Instructions Recorded Confirmed Last Taken Type Pantoprazole Sodium [Protonix] 40 mg PO DAILY 08/19/21 08/19/21 08/19/21 10:00 History Cephalexin Mh 500 mg [Keflex 500 500 mg PO QID 7 Days #28 cap 08/23/21 Unknown Rx mg] Potassium Chloride 10 Meq Tab* 10 meq PO BID #60 tab 08/23/21 Unknown Rx [Klor Con 10 MEQ] Spironolactone [Aldactone] 50 mg PO BID 30 Days #60 tablet 08/23/21 Unknown Rx Current Medications Generic Name Dose Route Start Last Admin Trade Name Freq PRN Reason Stop Dose Admin Hydrocodone Bitart/Acetaminophen 1 tab 08/21/21 20:00 08/23/21 07:56 Hydrocodone/Apap 5/325 Mg Tablet PO 08/26/21 19:59 1 tab Q6H NKECHI Administration Allopurinol 300 mg 08/20/21 10:00 08/23/21 09:49 Allopurinol 300 Mg Tablet PO 09/19/21 09:59 300 mg DAILY NKECHI Administration Apixaban 2.5 mg 08/19/21 22:00 08/23/21 09:49 Apixaban 2.5 Mg Tablet PO 09/18/21 21:59 2.5 mg BID NKECHI Administration Diclofenac Sodium 1 gm 08/19/21 21:15 Diclofenac Sodium 100 Gm Gel..Gm. TOP 09/18/21 21:14 TID PRN PRN BACK PAIN Diphenoxylate HCl/Atropine 1 tablet 08/21/21 14:28 08/22/21 11:32 Diphenoxylate Hcl/Atropine 1 Tablet PO 09/20/21 14:27 1 tablet Q6HPRN PRN Administration DIARRHEA Sodium Chloride 1,000 mls @ 100 mls/hr 08/19/21 17:00 08/22/21 02:28 Sodium Chloride 0.9% 1000 Ml IV 09/18/21 16:59 100 mls/hr .Q10H NKECHI Administration Piperacillin Sod/Tazobactam 100 mls @ 200 mls/hr 08/20/21 08:00 08/23/21 06:50 Sod 2.25 gm/ Sodium Chloride IV 09/19/21 07:59 200 mls/hr Q6HT NKECHI Administration Levothyroxine Sodium 25 mcg 08/20/21 10:00 08/23/21 09:49 Levothyroxine Sodium 25 Mcg Tablet PO 09/19/21 09:59 25 mcg DAILY NKECHI Administration Levothyroxine Sodium 200 mcg 08/20/21 10:00 08/23/21 09:48 Levothyroxine Sodium 100 Mcg Tablet PO 09/19/21 09:59 200 mcg DAILY NKECHI Administration Magnesium Oxide 400 mg 08/19/21 22:00 08/23/21 09:49 Magnesium Oxide 400 Mg Tablet PO 09/18/21 21:59 400 mg BID NKECHI Administration Metformin HCl 500 mg 08/20/21 08:00 Metformin Hcl 500 Mg Tablet PO 09/19/21 07:59 BIDWM NKECHI Metolazone 2.5 mg 08/20/21 10:00 08/23/21 09:49 Metolazone 2.5 Mg Tablet PO 09/19/21 09:59 2.5 mg DAILY NKECHI Administration Metoprolol Succinate 50 mg 08/20/21 10:00 08/23/21 09:48 Metoprolol Succinate 50 Mg Tablet.Sa PO 09/19/21 09:59 50 mg DAILY NKECHI Administration Multivitamins 1 tab 08/20/21 10:00 08/23/21 09:50 Vitamin B Complex With Vit. C Tablet PO 09/19/21 09:59 1 tab DAILY NKECHI Administration Nitroglycerin 0.4 mg 08/19/21 21:06 Nitroglycerin 0.4 Mg Tablet Bottle SL 09/18/21 21:05 Q5MIN PRN MR X 3 PRN CHEST PAIN Ondansetron HCl 4 mg 08/19/21 17:00 Ondansetron Hcl 4 Mg/2 Ml Vial IV 09/18/21 16:59 Q6H PRN PRN NAUSEA/VOMITING Pantoprazole Sodium 40 mg 08/20/21 10:00 08/23/21 09:49 Protonix (Pantoprazole) 40 Mg Tablet PO 09/19/21 09:59 40 mg DAILY NKECHI Administration Potassium Chloride 30 meq 08/19/21 22:00 08/23/21 09:48 Potassium Chloride 10 Meq Tablet PO 09/18/21 21:59 30 meq BID NKECHI Administration Spironolactone 50 mg 08/22/21 10:00 08/23/21 09:49 Spironolactone 25 Mg Tablet PO 09/21/21 09:59 50 mg BID DIURETIC NKECHI Administration Tamsulosin HCl 0.4 mg 08/20/21 10:00 08/23/21 09:49 Tamsulosin Hcl 0.4 Mg Cap PO 09/19/21 09:59 0.4 mg DAILY NKECHI Administration Discontinued Medications Generic Name Dose Route Start Last Admin Trade Name Freq PRN Reason Stop Dose Admin Hydrocodone Bitart/Acetaminophen 1 tab 08/19/21 21:05 08/21/21 14:22 Hydrocodone/Apap 5/325 Mg Tablet PO 08/24/21 21:04 1 tab Q6H PRN PRN Administration PAIN Bumetanide 2 mg 08/19/21 22:00 08/19/21 23:09 Bumetanide 1 Mg Tablet PO 09/18/21 21:59 2 mg TID NKECHI Administration Bumetanide 2 mg 08/20/21 10:00 08/21/21 16:19 Bumetanide 1 Mg Tablet PO 09/19/21 09:59 2 mg TID DIURETIC NKECHI Administration Sodium Chloride 1,000 mls @ 999 mls/hr 08/19/21 16:22 08/19/21 17:49 Sodium Chloride 0.9% 1000 Ml IV 08/19/21 17:22 Infused .Q1H1M STA Infusion Piperacillin Sod/Tazobactam 100 mls @ 200 mls/hr 08/19/21 16:22 08/19/21 16:38 Sod 3.375 gm/ Sodium Chloride IV 08/19/21 16:51 200 mls/hr STAT ONE Administration Sodium Chloride Confirm 08/19/21 16:28 Sodium Chloride 0.9% 1000 Ml Administered 08/19/21 16:29 Dose 1,000 mls @ ud .ROUTE .STK-MED ONE Sodium Chloride Confirm 08/19/21 16:30 Sodium Chloride 100ml Mini-Bag Plus Administered 08/19/21 16:31 Dose 100 mls @ ud IV .STK-MED ONE Piperacillin Sod/Tazobactam 100 mls @ 200 mls/hr 08/19/21 18:00 08/19/21 19:27 Sod 3.375 gm/ Sodium Chloride IV 08/22/21 17:59 Not Given Q6HT NKECHI Sodium Chloride 1,000 mls @ 999 mls/hr 08/19/21 17:07 08/19/21 19:28 Sodium Chloride 0.9% 1000 Ml IV 08/19/21 18:07 Not Given .Q1H1M STA Piperacillin Sod/Tazobactam 100 mls @ 200 mls/hr 08/20/21 00:00 08/19/21 23:25 Sod 3.375 gm/ Sodium Chloride IV 08/23/21 00:00 200 mls/hr Q8H NKECHI Administration Potassium Chloride 20 meq in 100 mls @ 50 mls/hr 08/21/21 08:15 08/21/21 11:00 Potassium Chloride 20 Meq In Water 100ml IV 08/21/21 12:14 50 mls/hr Q2H NKECHI Administration Magnesium Sulfate/Dextrose 100 mls @ 200 mls/hr 08/21/21 16:53 08/21/21 17:11 Magnesium 1 Gm / 100 Ml D5w IV 08/21/21 17:22 200 mls/hr STAT ONE Administration Potassium Chloride 20 meq in 100 mls @ 50 mls/hr 08/21/21 17:00 08/21/21 20:59 Potassium Chloride 20 Meq In Water 100ml IV 08/21/21 20:59 50 mls/hr Q2H NKECHI Administration Potassium Chloride 20 meq in 100 mls @ 50 mls/hr 08/22/21 03:15 08/22/21 07:59 Potassium Chloride 20 Meq In Water 100ml IV 08/22/21 07:14 50 mls/hr Q2H NKECHI Administration Magnesium Sulfate/Dextrose 100 mls @ 200 mls/hr 08/22/21 03:06 08/22/21 03:15 Magnesium 1 Gm / 100 Ml D5w IV 08/22/21 03:35 200 mls/hr STAT ONE Administration Metoprolol Tartrate 5 mg 08/19/21 14:22 08/19/21 14:37 Metoprolol Tartrate 5 Mg/5 Ml Injection IV 08/19/21 14:23 5 mg STAT ONE Administration Metoprolol Tartrate Confirm 08/19/21 14:36 Metoprolol Tartrate 5 Mg/5 Ml Injection Administered 08/19/21 14:37 Dose 5 mg IV .STK-MED ONE Pantoprazole Sodium 40 mg 08/20/21 10:00 Pantoprazole 40 Mg Vial IV 09/19/21 09:59 Q24H10 NKECHI Piperacillin Sod/Tazobactam Sod Confirm 08/19/21 16:28 Piperacillin/Tazobactam Sodium 3.375 Gm Vial Administered 08/19/21 16:29 Dose 0 gm IV .STK-MED ONE Piperacillin Sod/Tazobactam Sod Confirm 08/19/21 16:30 Piperacillin/Tazobactam Sodium 3.375 Gm Vial Administered 08/19/21 16:31 Dose 3.375 gm IV .STK-MED ONE Spironolactone 50 mg 08/21/21 17:30 Spironolactone 25 Mg Tablet PO 09/20/21 17:29 BID DIURETIC NKECHI Intake & Output (Last 24 hours) 08/21/21 08/22/21 08/23/21 08/24/21 11:59 11:59 11:59 11:59 Intake Total 2468 2378 1688 Output Total 2125 2800 1150 Balance 343 422 538 Weight 62.2 kg Microbiology Results (Last 24 hours) 08/19/21 16:50 Blood Aerobic Culture - Pending 08/19/21 16:50 Blood Aerobic Organism ID Result 1 - Pending 08/19/21 16:50 Blood Aerobic Organism ID Result 2 - Pending 08/19/21 16:50 Blood Aerobic Organism ID Result 3 - Pending 08/19/21 16:50 Blood Aerobic Organism ID Result 4 - Pending 08/19/21 16:50 Blood Aerobic Bacterial Sensitivity - Pending 08/19/21 16:40 Blood Blood Culture Gram Stain - Final 08/19/21 16:40 Blood Blood Culture - Preliminary SEE REFERENCE LAB REPORT FOR FINAL RESULTS 08/20/21 10:50 Urine, Indwelling Catheter Urine Culture - Final Escherichia Coli Laboratory Results (Last 24 hours) 08/23/21 08/23/21 08/22/21 11:44 07:09 20:39 Potassium POC Glucometer 177 H 126 H 147 H C. difficile Screen C.difficile 027-NAP1-B1 08/22/21 08/22/21 08/22/21 16:18 16:15 12:48 Potassium 3.4 L D POC Glucometer 134 H C. difficile Screen NEGATIVE C.difficile 027-NAP1-B1 PRESUMPTIVE NEGATIVE Orders (Last 24 hours) Category Date Time Status Discharge Routine Discharge 08/23/21 09:27 Ordered C.Difficile by PCR Urgent Lab 08/22/21 16:15 Completed MAG [MAGNESIUM] Routine Lab 08/23/21 12:30 Ordered POCT GLUCOSE Stat Lab 08/22/21 16:18 Completed POCT GLUCOSE Stat Lab 08/22/21 20:39 Completed POCT GLUCOSE Stat Lab 08/23/21 07:09 Completed POCT GLUCOSE Stat Lab 08/23/21 11:44 Completed Potassium (Lab Test) [Potassium] Routine Lab 08/22/21 12:48 Completed Potassium Routine Lab 08/23/21 12:30 Ordered Chief Complaint Diagnosis SEPSIS, ACUTE PYELONEPHRITIS Allergies Allergy/AdvReac Type Severity Reaction Status Date / Time ofloxacin [From Floxin] Allergy Verified 08/19/21 14:28 Sulfa (Sulfonamide Allergy Verified 08/19/21 14:28 Antibiotics) [Sulfa(Sulfonamide Antibiotics)] Vital Signs (Last 24 hours) Temp Pulse Resp BP Pulse Ox 08/23/21 08:00 97.7 F 80 17 137/61 99 08/23/21 03:47 97.5 F 77 16 135/62 100 08/23/21 00:00 98.5 F 80 16 130/60 100 08/22/21 20:00 99.1 F 83 16 127/62 97 08/22/21 16:00 97.7 F 88 16 142/72 98 Home Medications Medication Instructions Recorded Confirmed Last Taken Type Pantoprazole Sodium [Protonix] 40 mg PO DAILY 08/19/21 08/19/21 08/19/21 10:00 History Cephalexin Mh 500 mg [Keflex 500 500 mg PO QID 7 Days #28 cap 08/23/21 Unknown Rx mg] Potassium Chloride 10 Meq Tab* 10 meq PO BID #60 tab 08/23/21 Unknown Rx [Klor Con 10 MEQ] Spironolactone [Aldactone] 50 mg PO BID 30 Days #60 tablet 08/23/21 Unknown Rx Current Medications Generic Name Dose Route Start Last Admin Trade Name Freq PRN Reason Stop Dose Admin Hydrocodone Bitart/Acetaminophen 1 tab 08/21/21 20:00 08/23/21 07:56 Hydrocodone/Apap 5/325 Mg Tablet PO 08/26/21 19:59 1 tab Q6H NKECHI Administration Allopurinol 300 mg 08/20/21 10:00 08/23/21 09:49 Allopurinol 300 Mg Tablet PO 09/19/21 09:59 300 mg DAILY NKECHI Administration Apixaban 2.5 mg 08/19/21 22:00 08/23/21 09:49 Apixaban 2.5 Mg Tablet PO 09/18/21 21:59 2.5 mg BID NKECHI Administration Diclofenac Sodium 1 gm 08/19/21 21:15 Diclofenac Sodium 100 Gm Gel..Gm. TOP 09/18/21 21:14 TID PRN PRN BACK PAIN Diphenoxylate HCl/Atropine 1 tablet 08/21/21 14:28 08/22/21 11:32 Diphenoxylate Hcl/Atropine 1 Tablet PO 09/20/21 14:27 1 tablet Q6HPRN PRN Administration DIARRHEA Sodium Chloride 1,000 mls @ 100 mls/hr 08/19/21 17:00 08/22/21 02:28 Sodium Chloride 0.9% 1000 Ml IV 09/18/21 16:59 100 mls/hr .Q10H NKECHI Administration Piperacillin Sod/Tazobactam 100 mls @ 200 mls/hr 08/20/21 08:00 08/23/21 06:50 Sod 2.25 gm/ Sodium Chloride IV 09/19/21 07:59 200 mls/hr Q6HT NKECHI Administration Levothyroxine Sodium 25 mcg 08/20/21 10:00 08/23/21 09:49 Levothyroxine Sodium 25 Mcg Tablet PO 09/19/21 09:59 25 mcg DAILY NKECHI Administration Levothyroxine Sodium 200 mcg 08/20/21 10:00 08/23/21 09:48 Levothyroxine Sodium 100 Mcg Tablet PO 09/19/21 09:59 200 mcg DAILY NKECHI Administration Magnesium Oxide 400 mg 08/19/21 22:00 08/23/21 09:49 Magnesium Oxide 400 Mg Tablet PO 09/18/21 21:59 400 mg BID NKECHI Administration Metformin HCl 500 mg 08/20/21 08:00 Metformin Hcl 500 Mg Tablet PO 09/19/21 07:59 BIDWM NKECHI Metolazone 2.5 mg 08/20/21 10:00 08/23/21 09:49 Metolazone 2.5 Mg Tablet PO 09/19/21 09:59 2.5 mg DAILY NKECHI Administration Metoprolol Succinate 50 mg 08/20/21 10:00 08/23/21 09:48 Metoprolol Succinate 50 Mg Tablet.Sa PO 09/19/21 09:59 50 mg DAILY NKECHI Administration Multivitamins 1 tab 08/20/21 10:00 08/23/21 09:50 Vitamin B Complex With Vit. C Tablet PO 09/19/21 09:59 1 tab DAILY NKECHI Administration Nitroglycerin 0.4 mg 08/19/21 21:06 Nitroglycerin 0.4 Mg Tablet Bottle SL 09/18/21 21:05 Q5MIN PRN MR X 3 PRN CHEST PAIN Ondansetron HCl 4 mg 08/19/21 17:00 Ondansetron Hcl 4 Mg/2 Ml Vial IV 09/18/21 16:59 Q6H PRN PRN NAUSEA/VOMITING Pantoprazole Sodium 40 mg 08/20/21 10:00 08/23/21 09:49 Protonix (Pantoprazole) 40 Mg Tablet PO 09/19/21 09:59 40 mg DAILY NKECHI Administration Potassium Chloride 30 meq 08/19/21 22:00 08/23/21 09:48 Potassium Chloride 10 Meq Tablet PO 09/18/21 21:59 30 meq BID NKECHI Administration Spironolactone 50 mg 08/22/21 10:00 08/23/21 09:49 Spironolactone 25 Mg Tablet PO 09/21/21 09:59 50 mg BID DIURETIC NKECHI Administration Tamsulosin HCl 0.4 mg 08/20/21 10:00 08/23/21 09:49 Tamsulosin Hcl 0.4 Mg Cap PO 09/19/21 09:59 0.4 mg DAILY NKECHI Administration Discontinued Medications Generic Name Dose Route Start Last Admin Trade Name Freq PRN Reason Stop Dose Admin Hydrocodone Bitart/Acetaminophen 1 tab 08/19/21 21:05 08/21/21 14:22 Hydrocodone/Apap 5/325 Mg Tablet PO 08/24/21 21:04 1 tab Q6H PRN PRN Administration PAIN Bumetanide 2 mg 08/19/21 22:00 08/19/21 23:09 Bumetanide 1 Mg Tablet PO 09/18/21 21:59 2 mg TID NKECHI Administration Bumetanide 2 mg 08/20/21 10:00 08/21/21 16:19 Bumetanide 1 Mg Tablet PO 09/19/21 09:59 2 mg TID DIURETIC NKECHI Administration Sodium Chloride 1,000 mls @ 999 mls/hr 08/19/21 16:22 08/19/21 17:49 Sodium Chloride 0.9% 1000 Ml IV 08/19/21 17:22 Infused .Q1H1M STA Infusion Piperacillin Sod/Tazobactam 100 mls @ 200 mls/hr 08/19/21 16:22 08/19/21 16:38 Sod 3.375 gm/ Sodium Chloride IV 08/19/21 16:51 200 mls/hr STAT ONE Administration Sodium Chloride Confirm 08/19/21 16:28 Sodium Chloride 0.9% 1000 Ml Administered 08/19/21 16:29 Dose 1,000 mls @ ud .ROUTE .STK-MED ONE Sodium Chloride Confirm 08/19/21 16:30 Sodium Chloride 100ml Mini-Bag Plus Administered 08/19/21 16:31 Dose 100 mls @ ud IV .STK-MED ONE Piperacillin Sod/Tazobactam 100 mls @ 200 mls/hr 08/19/21 18:00 08/19/21 19:27 Sod 3.375 gm/ Sodium Chloride IV 08/22/21 17:59 Not Given Q6HT NKECHI Sodium Chloride 1,000 mls @ 999 mls/hr 08/19/21 17:07 08/19/21 19:28 Sodium Chloride 0.9% 1000 Ml IV 08/19/21 18:07 Not Given .Q1H1M STA Piperacillin Sod/Tazobactam 100 mls @ 200 mls/hr 08/20/21 00:00 08/19/21 23:25 Sod 3.375 gm/ Sodium Chloride IV 08/23/21 00:00 200 mls/hr Q8H NKECHI Administration Potassium Chloride 20 meq in 100 mls @ 50 mls/hr 08/21/21 08:15 08/21/21 11:00 Potassium Chloride 20 Meq In Water 100ml IV 08/21/21 12:14 50 mls/hr Q2H NKECHI Administration Magnesium Sulfate/Dextrose 100 mls @ 200 mls/hr 08/21/21 16:53 08/21/21 17:11 Magnesium 1 Gm / 100 Ml D5w IV 08/21/21 17:22 200 mls/hr STAT ONE Administration Potassium Chloride 20 meq in 100 mls @ 50 mls/hr 08/21/21 17:00 08/21/21 20:59 Potassium Chloride 20 Meq In Water 100ml IV 08/21/21 20:59 50 mls/hr Q2H NKECHI Administration Potassium Chloride 20 meq in 100 mls @ 50 mls/hr 08/22/21 03:15 08/22/21 07:59 Potassium Chloride 20 Meq In Water 100ml IV 08/22/21 07:14 50 mls/hr Q2H NKECHI Administration Magnesium Sulfate/Dextrose 100 mls @ 200 mls/hr 08/22/21 03:06 08/22/21 03:15 Magnesium 1 Gm / 100 Ml D5w IV 08/22/21 03:35 200 mls/hr STAT ONE Administration Metoprolol Tartrate 5 mg 08/19/21 14:22 08/19/21 14:37 Metoprolol Tartrate 5 Mg/5 Ml Injection IV 08/19/21 14:23 5 mg STAT ONE Administration Metoprolol Tartrate Confirm 08/19/21 14:36 Metoprolol Tartrate 5 Mg/5 Ml Injection Administered 08/19/21 14:37 Dose 5 mg IV .STK-MED ONE Pantoprazole Sodium 40 mg 08/20/21 10:00 Pantoprazole 40 Mg Vial IV 09/19/21 09:59 Q24H10 NKECHI Piperacillin Sod/Tazobactam Sod Confirm 08/19/21 16:28 Piperacillin/Tazobactam Sodium 3.375 Gm Vial Administered 08/19/21 16:29 Dose 0 gm IV .STK-MED ONE Piperacillin Sod/Tazobactam Sod Confirm 08/19/21 16:30 Piperacillin/Tazobactam Sodium 3.375 Gm Vial Administered 08/19/21 16:31 Dose 3.375 gm IV .STK-MED ONE Spironolactone 50 mg 08/21/21 17:30 Spironolactone 25 Mg Tablet PO 09/20/21 17:29 BID DIURETIC NKECHI Intake & Output (Last 24 hours) 08/21/21 08/22/21 08/23/21 08/24/21 11:59 11:59 11:59 11:59 Intake Total 2468 2378 1688 Output Total 2125 2800 1150 Balance 343 -422 538 Weight 62.2 kg Microbiology Results (Last 24 hours) 08/19/21 16:50 Blood Aerobic Culture - Pending 08/19/21 16:50 Blood Aerobic Organism ID Result 1 - Pending 08/19/21 16:50 Blood Aerobic Organism ID Result 2 - Pending 08/19/21 16:50 Blood Aerobic Organism ID Result 3 - Pending 08/19/21 16:50 Blood Aerobic Organism ID Result 4 - Pending 08/19/21 16:50 Blood Aerobic Bacterial Sensitivity - Pending 08/19/21 16:40 Blood Blood Culture Gram Stain - Final 08/19/21 16:40 Blood Blood Culture - Preliminary SEE REFERENCE LAB REPORT FOR FINAL RESULTS 08/20/21 10:50 Urine, Indwelling Catheter Urine Culture - Final Escherichia Coli Laboratory Results (Last 24 hours) 08/23/21 08/23/21 08/22/21 11:44 07:09 20:39 Potassium POC Glucometer 177 H 126 H 147 H C. difficile Screen C.difficile 027-NAP1-B1 08/22/21 08/22/21 08/22/21 16:18 16:15 12:48 Potassium 3.4 L D POC Glucometer 134 H C. difficile Screen NEGATIVE C.difficile 027-NAP1-B1 PRESUMPTIVE NEGATIVE Orders (Last 24 hours) Category Date Time Status Discharge Routine Discharge 08/23/21 09:27 Ordered C.Difficile by PCR Urgent Lab 08/22/21 16:15 Completed MAG [MAGNESIUM] Routine Lab 08/23/21 12:30 Ordered POCT GLUCOSE Stat Lab 08/22/21 16:18 Completed POCT GLUCOSE Stat Lab 08/22/21 20:39 Completed POCT GLUCOSE Stat Lab 08/23/21 07:09 Completed POCT GLUCOSE Stat Lab 08/23/21 11:44 Completed Potassium (Lab Test) [Potassium] Routine Lab 08/22/21 12:48 Completed Potassium Routine Lab 08/23/21 12:30 Ordered - Vitals & Intake/Output Vital Signs: Vital Signs Temperature 97.7 F 08/23/21 08:00 Pulse Rate 80 08/23/21 08:00 Respiratory Rate 17 08/23/21 08:00 Blood Pressure 137/61 08/23/21 08:00 O2 Sat by Pulse Oximetry 99 08/23/21 08:00 Intake & Output: Intake & Output 08/21/21 08/22/21 08/23/21 08/24/21 11:59 11:59 11:59 11:59 Intake Total 2468 2378 1688 Output Total 2125 2800 1150 Balance 343 -422 538 Weight 62.2 kg - Lab Result Diagrams: 08/22/21 01:50 08/22/21 12:48 Lab Results-Last 24 Hrs: Lab Results-Last 24 Hours 08/22/21 08/22/21 08/22/21 Range/Units 12:48 16:15 16:18 Potassium 3.4 L D (3.5-5.1) mmol/L POC Glucometer 134 H (74 to 106) mg/dL C. difficile Screen NEGATIVE (NEGATIVE) C.difficile 027-NAP1-B1 PRESUMPTIVE NEGATIVE (NEGATIVE) 08/22/21 08/23/21 08/23/21 Range/Units 20:39 07:09 11:44 Potassium (3.5-5.1) mmol/L POC Glucometer 147 H 126 H 177 H (74 to 106) mg/dL C. difficile Screen (NEGATIVE) C.difficile 027-NAP1-B1 (NEGATIVE) Micro Results-Entire Visit: Microbiology 08/19/21 16:40 Blood Culture Gram Stain - Final Blood Blood Culture - Preliminary SEE REFERENCE LAB REPORT FOR FINAL RESULTS 08/20/21 10:50 Urine Culture - Final Urine, Indwelling Catheter Escherichia Coli 08/19/21 15:50 Urine Culture - Final Urine, Catheterized Escherichia Coli 08/19/21 16:52 Blood Culture - Preliminary Blood NO GROWTH TO DATE Accuchecks Date 08/23/21 Date 08/22/21 Time 07:10 - Procedures and Test Procedures and Tests throughout Hospitalization: Therapy Orders & Screens 08/19/21 20:44 PT Screen per Nursing Assess ONCE Comment: Protocol Order Physician Instructions: Greater than 3 points order PT Admission Screenin Reason For Exam: Triggered on Admission Diagnosis: dysurea for 2-3 days Open Wound/Cellutlitis/Pressure Ulcers: Yes Acute Fx/ORIF/Change in wt bearing status: No Severe MUSCULOSKELETAL pain: Yes ADL Dysfunction: Yes Acute CVA w/Hemiparesis/Hemiplegia: No Decreased Functional Mobility/Strength: Yes Sprain/Strain: No Acute Post-op Mobility Dysfunction: No Total Points: 14 Discharge Exam General Appearance: no apparent distress, alert Neurologic Exam: alert, oriented x 3, cooperative, normal mood/affect, nml cerebellar function, sensation nml, No motor deficits Eye Exam: PERRL, EOMI, eyes nml inspection Ears, Nose, Throat Exam: normal ENT inspection, pharynx normal, moist mucous membranes Neck Exam: normal inspection, non-tender, supple, full range of motion Respiratory Exam: normal breath sounds, lungs clear, No respiratory distress Cardiovascular Exam: regular rate/rhythm, normal heart sounds Gastrointestinal/Abdomen Exam: soft, No tenderness, No mass Pelvic Exam: deferred Rectal Exam: deferred Back Exam: normal inspection, normal range of motion, No CVA tenderness, No vertebral tenderness Extremity Exam: normal inspection, normal range of motion Skin Exam: normal color, warm, dry Wound Assessment: Skin/Wound Assessment Wound/Incision Assessment Start: 08/19/21 20:44 Text: Status: Active Freq: Q6H Protocol: Document 08/23/21 08:00 AR (Rec: 08/23/21 08:31 AR [id number]) Wound/Incision Assessment Heel Wound Assessment Shift Assessment Wound Type Pressure Ulcer Wound Stage Stage I General Appearance Open to air Surrounding Tissue [place] Comment bilateral heels reddened, non blanchable, barrier cream applied prn Lower Abdomen Wound Assessment Shift Assessment Wound Type Skin Tear Wound Stage Non Pressure Wound General Appearance Open to air Comment sm open area, barrier cream applied prn Right Buttock Wound Assessment Shift Assessment Wound Type Pressure Ulcer Wound Stage Stage II General Appearance Open to air Length (cm) (cm) 0.9 Width (cm) (cm) 0.6 Wound Bed Greatest Portion Shiny Wound Bed Lesser Portion Red (Granulation) Surrounding Tissue Bright Red,Dark Red Comment barrier cream applied. Left Buttock Wound Assessment Shift Assessment Wound Type Pressure Ulcer Wound Stage Stage III General Appearance Open to air Length (cm) (cm) 6.3 Width (cm) (cm) 4.4 Wound Bed Greatest Portion Red (Granulation) Wound Bed Lesser Portion Red (Granulation),Shiny Surrounding Tissue Bright Red,Dark Red Comment barrier cream applied. Wound Photo Photo Taken Yes Date: 08/19/21 Time: 18:45 Final Diagnosis/Problem List - Final Discharge Diagnosis/Problem (1) Sepsis Current Visit: Yes Status: Acute (2) UTI (urinary tract infection) Current Visit: Yes Status: Acute Code(s): N39.0 - URINARY TRACT INFECTION, SITE NOT SPECIFIED (3) Atrial fibrillation Current Visit: Yes Status: Chronic Code(s): I48.91 - UNSPECIFIED ATRIAL FIBRILLATION (4) Diabetic neuropathy associated with type 2 diabetes mellitus Current Visit: Yes Status: Chronic Code(s): E11.40 - TYPE 2 DIABETES MELLITUS WITH DIABETIC NEUROPATHY, UNSP (5) Hypokalemia due to excessive renal loss of potassium Current Visit: Yes Status: Acute Code(s): E87.6 - HYPOKALEMIA - Discharge Discharge Date: 08/23/21 Disposition: Home, Self-Care Condition: Stable Prescriptions: New Spironolactone [Aldactone] 50 mg PO BID 30 Days #60 tablet Cephalexin Mh 500 mg [Keflex 500 mg] 500 mg PO QID 7 Days #28 cap Potassium Chloride 10 Meq Tab* [Klor Con 10 MEQ] 10 meq PO BID #60 tab Continue Magnesium Oxide 400 mg [Mag-Ox 400] 400 mg PO BID Allopurinol 300 mg [Zyloprim 300 mg] 300 mg PO DAILY Apixaban [Eliquis] 2.5 mg PO BID Levothyroxine Sodium [Synthroid] 25 mcg PO DAILY Levothyroxine Sodium [Synthroid] 200 mcg PO DAILY Nitroglycerin 0.4 mg Tablet [Nitrostat 0.4 MG Tablet] 0.4 mg SL Q5MIN PRN MR X 3 PRN PRN Reason: Chest Pain Vitamin B Complex [Super B-50 Complex] 1 cap PO DAILY Metformin HCl 500 mg PO BID Hydrocodone/APAP 5-325 Tab^^^ [[place] 5-325 Tablet^^^] 1 tab PO Q6HPRN PRN #10 tablet MDD 6 PRN Reason: Pain Tamsulosin HCl 0.4 mg [Flomax 0.4 MG] 0.4 mg PO DAILY Metoprolol Succinate 50 mg PO DAILY Diclofenac Sodium Gel [Voltaren GEL] 1 gm TOP TID PRN Pantoprazole Sodium [Protonix] 40 mg PO DAILY Discontinued Potassium Chloride [Klor-Con 10] 30 meq PO BID Bumetanide 1 mg [Bumex 1 mg] 2 mg PO TID Metolazone 2.5 mg [Zaroxolyn 2.5 MG] 2.5 mg PO DAILY Outpatient Orders: BMP Time Frame: 08/30/21, Facility: [facility], Location: LABORATORY Instructions: Urinary Tract Infection, Adult (DC) Follow up with: TRINH MINAYA MD [Primary Care Provider] - 09/02/21 2:45 pm ([place] )
[2021-08-23 13:01] LABS: MAGNESIUM 1.6 mg/dL (1.6-2.3); Potassium 3.5 mmol/L (3.5-5.1)
[2021-08-23 13:13] VITALS: BP 165/70; PULSE 81
== END 2021-08-23 15:12 | disposition home or self-care (01) | DRG 871 ==
LOC: ED 14:01 → MED SURG 18:45 → OBSVTOIN 20:23 → INTOOBSV 20:23 → OBSVTOIN 22:23
PROVIDERS: ADMIT General Practice; ATTEND General Practice
DX: A41.9 Sepsis, unspecified organism (principal); L89.323 Pressure ulcer of left buttock, stage 3; N39.0 Urinary tract infection, site not specified; E11.40 Type 2 diabetes mellitus with diabetic neuropathy, unspecified; E87.6 Hypokalemia; I48.91 Unspecified atrial fibrillation; M54.50 Low back pain, unspecified; I10 Essential (primary) hypertension; E03.9 Hypothyroidism, unspecified; L89.621 Pressure ulcer of left heel, stage 1; L89.611 Pressure ulcer of right heel, stage 1; L89.312 Pressure ulcer of right buttock, stage 2; Z79.01 Long term (current) use of anticoagulants; Z79.899 Other long term (current) drug therapy; Z98.890 Other specified postprocedural states; Z20.822 Contact with and (suspected) exposure to COVID-19
CPT/HCPCS: 36000; 36415; 71045; 80047; 80053; 81001; 82947; 83036; 83605; 83735; 84132; 84145; 84484; 85025; 85610; 85730; 87040; 87077; 87086; 87186; 87493; 93005; 96374; 99285; 99291; U0003; J2543; J3475; J3480; A9270-GY

== ENCOUNTER 2021-08-28 17:28 | Emergency (ER) | payer MEDICARE ==
[2021-08-28] MEDS ORDERED: Zofran 4 MG/2 ML VIAL IV ONE (18:26)
[2021-08-28] MEDS ORDERED: MORPHINE SULFATE 2 MG INJ IV ONE ×2 (18:26→21:31)
--- NOTE | 2021-08-28 18:27 | ERPHSYRPT ---
- History of Present Illness Time Seen by Provider: 08/28/21 17:50 Historian: patient Exam Limitations: no limitations Patient Subjective Stated Complaint: Abdominal pain Triage Nursing Assessment: Patient brought into ED via EMS and transferred to bed with assist of 2. Patient A+O X3. Patient's skin pink, warm and dry. Patient complains of abdominal pain that started today. Patient states she is nauseated and having diarrhea. Patient just D/C from hospital on 08/23/2021. Patient's abdomen soft and round with BS x 4. BLE swollen and weeping clear fluid. Several fluid filled blisters noted to BLE. Patient's left hand noted to be swollen. Physician History: Patient is a 81-year-old female presents to our ED with complaints of generalized abdominal pain. Patient states that she was discharged 5 days ago from her hospital. Patient was diagnosed with sepsis acute pyelonephritis and atrial fibrillation. Patient states since her discharge she has got progressively worse. Patient was advised retirement placement patient declined. Patient now states that she will follow the doctor's recommendations. Patient's abdominal pain is constant. She describes nausea and diarrhea. No vomiting. Symptoms are mild to moderate in intensity. No specific worsening improving factors. Patient additionally states she just feels unwell overall. No chest pain no shortness of breath. No headache. No fever reported. Timing/Duration: day(s) (5 days.) Activities at Onset: none Quality: aching Abdominal Pain Onset Location: generalized abdomen Pain Radiation: no radiation Severity of Pain-Max: moderate Severity of Pain-Current: mild Modifying Factors: Improves With: nothing Associated Symptoms: denies symptoms Previous symptoms: same symptoms as today Allergies/Adverse Reactions: ofloxacin [From Floxin] Allergy (Verified 08/28/21 17:39) Sulfa (Sulfonamide Antibiotics) [Sulfa(Sulfonamide Antibiotics)] Allergy (Verified 08/28/21 17:39) Home Medications: Allopurinol 300 mg [Zyloprim 300 mg] 300 mg PO DAILY 11/30/16 [History] Apixaban [Eliquis] 2.5 mg PO BID 11/30/16 [History] Levothyroxine Sodium [Synthroid] 25 mcg PO DAILY 11/30/16 [History] Levothyroxine Sodium [Synthroid] 200 mcg PO DAILY 11/30/16 [History] Magnesium Oxide 400 mg [Mag-Ox 400] 400 mg PO BID 11/30/16 [History] Nitroglycerin 0.4 mg Tablet [Nitrostat 0.4 MG Tablet] 0.4 mg SL Q5MIN PRN MR X 3 PRN 05/21/17 [History] Vitamin B Complex [Super B-50 Complex] 1 cap PO DAILY 05/21/17 [History] Metformin HCl 500 mg PO BID 04/24/18 [History] Diclofenac Sodium Gel [Voltaren GEL] 1 gm TOP TID PRN 09/05/20 [History] Metoprolol Succinate 50 mg PO DAILY 09/05/20 [History] Tamsulosin HCl 0.4 mg [Flomax 0.4 MG] 0.4 mg PO DAILY 09/05/20 [History] Pantoprazole Sodium [Protonix] 40 mg PO DAILY 08/19/21 [History] Hx Tetanus, Diphtheria Vaccination/Date Given: Yes Hx Influenza Vaccination/Date Given: Yes Hx Pneumococcal Vaccination/Date Given: Yes Immunizations Up to Date: Yes Travel Risk - International Travel Have you traveled outside of the country in past 3 weeks: No - Coronavirus Screening Are you exhibiting any of the following symptoms?: No Close contact with a COVID-19 positive Pt in past 14-21 Days: No - Vaccine Status Have you recieved a Covid-19 vaccination: Yes 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 - Vaccination Dates Date of 2cond Vaccination (if applicable): unk - Review of Systems Constitutional: No Symptoms, No Fever, No Chills Eyes: No Symptoms Ears, Nose, & Throat: No Symptoms Respiratory: No Symptoms, No Cough, No Dyspnea Cardiac: No Symptoms, No Chest Pain, No Edema, No Syncope Abdominal/Gastrointestinal: No Symptoms, No Abdominal Pain, No Nausea, No Vomiting, No Diarrhea Genitourinary Symptoms: No Symptoms, No Dysuria Musculoskeletal: No Symptoms, No Back Pain, No Neck Pain Skin: No Symptoms, No Rash Neurological: No Symptoms, No Dizziness, No Focal Weakness, No Sensory Changes Psychological: No Symptoms Endocrine: No Symptoms Hematologic/Lymphatic: No Symptoms Immunological/Allergic: No Symptoms All Other Systems: Reviewed and Negative - Past Medical History Pertinent Past Medical History: Yes Neurological History: Peripheral Neuropathy ENT History: No Pertinent History Cardiac History: Hypertension Respiratory History: COPD Endocrine Medical History: Diabetes Type II, Hypothyroidism Musculoskeletal History: Arthritis GI Medical History: Diverticulitis, Diverticulosis, Hemorrhoids, Hernia History: Renal Disease Psycho-Social History: No Pertinent History Female Reproductive Disorders: No Pertinent History Other Medical History: PE, ARRYTHMIA, RENAL DZ, DDD, RA, OA, MYELODSYPLASTIC SYNDROME. PSH: CARDIAC CATH, HYSTERECTOMY, LUMPECTOMY, BASAL AND SQUAMOUS CELL CA. - Past Surgical History Past Surgical History: Yes Neuro Surgical History: No Pertinent History Cardiac: Cardiac Catheterization Respiratory: No Pertinent History Gastrointestinal: No Pertinent History Genitourinary: No Pertinent History Musculoskeletal: No Pertinent History Female Surgical History: Hysterectomy, Lumpectomy Other Surgical History: breast tumor removed, tumor removed from back benign, 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, cauterization due to intestinal bleed - Social History Smoking Status: Never smoker Exposure to second hand smoke: No Drug Use: none Patient Lives Alone: No Significant Family History: no pertinent family hx - Female History Hx Now: No - Nursing Vital Signs Nursing Vital Signs: Initial Vital Signs Temperature 98.2 F 08/28/21 17:39 Pulse Rate 105 H 08/28/21 17:39 Respiratory Rate 18 08/28/21 17:39 Blood Pressure 135/63 08/28/21 17:39 O2 Sat by Pulse Oximetry 97 08/28/21 17:39 Pain Scale Pain Intensity 5 - Physical Exam General Appearance: no apparent distress, alert Eye Exam: PERRL/EOMI, eyes nml inspection Ears, Nose, Throat Exam: normal ENT inspection, pharynx normal, moist mucous membranes Neck Exam: normal inspection, non-tender, supple, full range of motion Respiratory Exam: normal breath sounds, lungs clear, airway intact, No respiratory distress Cardiovascular Exam: regular rate/rhythm, normal heart sounds Gastrointestinal/Abdomen Exam: soft, normal bowel sounds, tenderness (Diffuse abdominal tenderness.), No mass, No guarding, No rebound Back Exam: normal inspection, normal range of motion, No CVA tenderness, No vertebral tenderness Extremity Exam: normal inspection, normal range of motion, pelvis stable, pedal edema (3+ pitting edema bilateral lower extremities.), other (Right lower extremity has blisters likely due from rapid swelling of lower extremities. Left upper extremity is swollen versus the right. All extremities are neurovascular intact distally.) Neurologic Exam: alert, oriented x 3, cooperative, normal mood/affect, nml cerebellar function, sensation nml, No motor deficits Skin Exam: normal color, warm, dry Lymphatic Exam: No adenopathy SpO2 Interpretation: normal SpO2: 97 O2 Delivery: Room Air - Course Nursing assessment & vital signs reviewed: Yes EKG Interpreted by Me: RATE (89), Sinus Rhythm, NORMAL AXIS, NORMAL INTERVALS - CT Exams Abdomen/Pelvis CT Interpretation: Tele-radiologist Report (Compared to 06/02/2021 new tiny bibasilar effusions without cardiomegaly. Mild distended gallbladder without stones. Again diffuse scattered diverticulosis with new mild descending diverticulitis no free fluid or air.) - Radiology Ultrasound Exam Venous Upper Extremity Ultrasound: discussed w/radiologist (Per head control clerk ultrasound left upper extremity negative for DVT.) Ordered Tests: Active Orders 24 hr Category Date Time Status EKG-ER Only STAT Care 08/28/21 19:57 Active IV Insertion STAT Care 08/28/21 18:26 Active ABDOMEN AND PELVIS W/0 CONTRAS [CT] Stat Exams 08/28/21 18:26 Taken VENOUS UNILAT/LIMITED EXTREMIT [US] Stat Exams 08/28/21 18:38 Taken BMP Stat Lab 08/28/21 21:17 Ordered CBC W DIFF Stat Lab 08/28/21 18:55 Completed CMP Stat Lab 08/28/21 18:55 Completed CULTURE,URINE Stat Lab 08/28/21 20:16 Received LIPASE Stat Lab 08/28/21 18:55 Completed NT PRO BNP Stat Lab 08/28/21 18:55 Completed TROPONIN Q3H Lab 08/28/21 18:55 Completed TROPONIN Q3H Lab 08/28/21 21:30 Ordered TROPONIN Q3H Lab 08/29/21 00:30 Ordered TROPONIN Q3H Lab 08/29/21 03:30 Ordered TROPONIN Q3H Lab 08/29/21 06:30 Ordered UA W/RFX UR CULTURE Stat Lab 08/28/21 20:16 Completed Medication Summary Generic Name Dose Route Start Last Admin Trade Name Freq PRN Reason Stop Dose Admin Sodium Bicarbonate 75 meq/ 1,075 mls @ 75 mls/hr 08/28/21 20:00 08/28/21 20:37 Dextrose/Sodium Chloride IV 09/27/21 19:59 75 mls/hr .[id number] 75 mls/hr Administration Discontinued Medications Generic Name Dose Route Start Last Admin Trade Name Tiagoq PRN Reason Stop Dose Admin Albuterol Sulfate 2.5 mg 08/28/21 21:20 Albuterol Sulfate 2.5 Mg/3 Ml Neb IH 08/28/21 21:21 STAT ONE Dextrose 50 ml 08/28/21 19:54 08/28/21 20:37 Dextrose 50%-Water 50 Ml Abboject IV 08/28/21 19:55 50 ml STAT ONE Administration Dextrose 50 ml 08/28/21 19:54 08/28/21 21:00 Dextrose 50%-Water 50 Ml Abboject IV 08/28/21 19:55 50 ml STAT ONE Administration Dextrose Confirm 08/28/21 20:36 Dextrose 50%-Water 50 Ml Abboject Administered 08/28/21 20:37 Dose 50 ml IV .STK-MED ONE Dextrose Confirm 08/28/21 20:59 Dextrose 50%-Water 50 Ml Abboject Administered 08/28/21 21:00 Dose 50 ml IV .STK-MED ONE Furosemide 40 mg 08/28/21 19:47 08/28/21 19:52 Furosemide 40 Mg/4 Ml Vial IV 08/28/21 19:48 40 mg STAT ONE Administration Furosemide Confirm 08/28/21 19:50 Furosemide 40 Mg/4 Ml Vial Administered 08/28/21 19:51 Dose 40 mg .ROUTE .STK-MED ONE Dextrose/Sodium Chloride Confirm 08/28/21 20:35 Dextrose 5% -0.45 Nacl 1000 Ml Administered 08/28/21 20:36 Dose 1,000 mls @ ud IV .STK-MED ONE Piperacillin Sod/Tazobactam 100 mls @ 200 mls/hr 08/28/21 20:58 Sod 3.375 gm/ Sodium Chloride IV 08/28/21 21:27 STAT ONE Insulin Human Regular 8 unit 08/28/21 19:55 08/28/21 20:41 Insulin Regular, Human 1 Unit SQ 08/28/21 19:56 8 unit STAT ONE Administration Insulin Human Regular Confirm 08/28/21 20:41 Insulin Regular, Human 1 Unit Administered 08/28/21 20:42 Dose 8 unit .ROUTE .STK-MED ONE Morphine Sulfate 2 mg 08/28/21 18:26 08/28/21 19:17 Morphine Sulfate 2 Mg/Ml Inj IV 08/28/21 18:27 2 mg STAT ONE Administration Morphine Sulfate Confirm 08/28/21 19:13 Morphine Sulfate 2 Mg/Ml Inj Administered 08/28/21 19:14 Dose 2 mg .ROUTE .STK-MED ONE Ondansetron HCl 4 mg 08/28/21 18:26 08/28/21 19:17 Ondansetron Hcl 4 Mg/2 Ml Vial IV 08/28/21 18:27 4 mg STAT ONE Administration Ondansetron HCl Confirm 08/28/21 19:13 Ondansetron Hcl 4 Mg/2 Ml Vial Administered 08/28/21 19:14 Dose 4 mg .ROUTE .STK-MED ONE Patiromer 8.4 gm 08/28/21 19:53 08/28/21 21:00 Patiromer Calcium Sorbitex 8.4 Gm Powd.Pack PO 08/28/21 19:54 8.4 gm STAT STA Administration Patiromer Confirm 08/28/21 20:59 Patiromer Calcium Sorbitex 8.4 Gm Powd.Pack Administered 08/28/21 21:00 Dose 8.4 gm PO .STK-MED ONE Sodium Bicarbonate Confirm 08/28/21 20:35 Sodium Bicarbonate 1 Meq/Ml 50ml Vial Administered 08/28/21 20:36 Dose 50 meq .ROUTE .STK-MED ONE Lab/Rad Data: Laboratory Result Diagrams 08/28/21 18:55 08/28/21 18:55 Laboratory Results 08/28/21 08/28/21 08/28/21 Range/Units 20:16 18:55 18:55 WBC (4.0-10.5) K/mm3 RBC (4.1-5.4) M/mm3 Hgb (12.0-16.0) gm/dl Hct (35-47) % MCV (78-100) fl MCH (26-32) pg MCHC (32-36) g/dl RDW (11.5-14.0) % Plt Count (150-450) K/mm3 MPV (7.5-11.0) fl Gran % (36.0-66.0) % Eos # (Auto) (0-0.5) Absolute Lymphs (auto) (1.0-4.6) Absolute Monos (auto) (0.0-1.3) Lymphocytes % (24.0-44.0) % Monocytes % (0.0-12.0) % Eosinophils % (0.00-5.0) % Basophils % (0.0-0.4) % Absolute Granulocytes (1.4-6.9) Basophils # (0-0.4) Sodium 133 L (137-145) mmol/L Potassium 7.2 H* (3.5-5.1) mmol/L Chloride 101 (98-107) mmol/L Carbon Dioxide 19 L (22-30) mmol/L Anion Gap 20.8 H (5-15) MEQ/L BUN 36 H (7-17) mg/dL Creatinine 2.09 H (0.52-1.04) mg/dL Estimated GFR 24.1 ML/MIN Glucose 119 H (74-106) mg/dL Calcium 9.8 (8.4-10.2) mg/dL Total Bilirubin 0.50 (0.2-1.3) mg/dL AST 22 (14-36) U/L ALT 16 (0-35) U/L Alkaline Phosphatase 200 H (38-126) U/L Troponin I < 0.012 (0.000-0.034) ng/mL NT-Pro-B Natriuret Pep 3080 H (0-1800) pg/mL Serum Total Protein 5.8 L (6.3-8.2) g/dL Albumin 2.8 L (3.5-5.0) g/dL Lipase 49 (23-300) U/L Urine Color DARY (YELLOW) Urine Appearance CLOUDY (CLEAR) Urine pH 5.0 (5-6) Ur Specific [place] 1.021 (1.005-1.025) Urine Protein 30 (Negative) Urine Ketones NEGATIVE (NEGATIVE) Urine Blood LARGE (0-5) Quentin/ul Urine Nitrite NEGATIVE (NEGATIVE) Urine Bilirubin NEGATIVE (NEGATIVE) Urine Urobilinogen NEGATIVE (0-1) mg/dL Ur Leukocyte Esterase LARGE (NEGATIVE) Urine WBC (Auto) >100 (0-5) /HPF Urine RBC (Auto) 51-100 (0-2) /HPF Urine Bacteria (Auto) FEW (NEGATIVE) /HPF Urine Mucus (Auto) SLIGHT (NEGATIVE) /HPF Urine Yeast (Budding) Rare (NEGATIVE) /HPF Urine Culture Reflexed YES (NO) Urine Glucose NEGATIVE (NEGATIVE) mg/dL 08/28/21 Range/Units 18:55 WBC 18.4 H (4.0-10.5) K/mm3 RBC 3.12 L (4.1-5.4) M/mm3 Hgb 9.8 L (12.0-16.0) gm/dl Hct 31.5 L (35-47) % MCV 101.0 H (78-100) fl MCH 31.4 (26-32) pg MCHC 31.1 L (32-36) g/dl RDW 20.5 H (11.5-14.0) % Plt Count 358 (150-450) K/mm3 MPV 9.2 (7.5-11.0) fl Gran % 92.8 H (36.0-66.0) % Eos # (Auto) 0 (0-0.5) Absolute Lymphs (auto) 0.69 L (1.0-4.6) Absolute Monos (auto) 0.61 (0.0-1.3) Lymphocytes % 3.8 L (24.0-44.0) % Monocytes % 3.3 (0.0-12.0) % Eosinophils % 0.0 (0.00-5.0) % Basophils % 0.1 (0.0-0.4) % Absolute Granulocytes 17.07 H (1.4-6.9) Basophils # 0.02 (0-0.4) Sodium (137-145) mmol/L Potassium (3.5-5.1) mmol/L Chloride (98-107) mmol/L Carbon Dioxide (22-30) mmol/L Anion Gap (5-15) MEQ/L BUN (7-17) mg/dL Creatinine (0.52-1.04) mg/dL Estimated GFR ML/MIN Glucose (74-106) mg/dL Calcium (8.4-10.2) mg/dL Total Bilirubin (0.2-1.3) mg/dL AST (14-36) U/L ALT (0-35) U/L Alkaline Phosphatase (38-126) U/L Troponin I (0.000-0.034) ng/mL NT-Pro-B Natriuret Pep (0-1800) pg/mL Serum Total Protein (6.3-8.2) g/dL Albumin (3.5-5.0) g/dL Lipase (23-300) U/L Urine Color (YELLOW) Urine Appearance (CLEAR) Urine pH (5-6) Ur Specific [place] (1.005-1.025) Urine Protein (Negative) Urine Ketones (NEGATIVE) Urine Blood (0-5) Quentin/ul Urine Nitrite (NEGATIVE) Urine Bilirubin (NEGATIVE) Urine Urobilinogen (0-1) mg/dL Ur Leukocyte Esterase (NEGATIVE) Urine WBC (Auto) (0-5) /HPF Urine RBC (Auto) (0-2) /HPF Urine Bacteria (Auto) (NEGATIVE) /HPF Urine Mucus (Auto) (NEGATIVE) /HPF Urine Yeast (Budding) (NEGATIVE) /HPF Urine Culture Reflexed (NO) Urine Glucose (NEGATIVE) mg/dL - Progress Progress: improved Progress Note: This discussed with who accepts transfer to [facility]. Plan of care discussed with patient. She agrees to transfer to [facility] for further evaluation and treatment. 08/28/21 21:29 Counseled pt/family regarding: lab results, diagnosis, rad results - Departure Clinical Impression: Leukocytosis, Megaloblastic anemia, Hyperkalemia, High anion gap metabolic acidosis, Acute renal injury, Elevated brain natriuretic peptide (BNP) level, Diverticulitis, Bibasilar effusions, Distended gallbladder Condition: Stable Critical Care Time: No Referrals: TRINH MINAYA MD [Primary Care Provider] -
[2021-08-28 18:58] LABS: Absolute Neutrophil Ct (ANC) 17.07 (1.4-6.9); BASOPHIL % 0.1 % (0.0-0.4); Basophil (Absolute #) 0.02 (0-0.4); Eosinophil (Absolute #) 0 (0-0.5); Hematocrit 31.5 % (35-47); Hemoglobin 9.8 gm/dl (12.0-16.0); Lymphocyte (Absolute #) 0.69 (1.0-4.6); Lymphocytes % 3.8 % (24.0-44.0); Mean Corpuscular Hemoglobin 31.4 pg (26-32); Mean Corpuscular Hgb Concent. 31.1 g/dl (32-36); Mean Platelet Volume 9.2 fl (7.5-11.0); Monocyte (Absolute #) 0.61 (0.0-1.3); Monocytes % 3.3 % (0.0-12.0); Neutrophil % 92.8 % (36.0-66.0); Platelet Count 358 K/mm3 (150-450); Red Blood Count 3.12 M/mm3 (4.1-5.4); Red Cell Distribution Width 20.5 % (11.5-14.0); White Blood Count 18.4 K/mm3 (4.0-10.5)
[2021-08-28] MEDS ORDERED: MORPHINE SULFATE 2 MG INJ ONE ×2 (19:13→21:33)
[2021-08-28] MEDS ORDERED: Zofran 4 MG/2 ML VIAL ONE (19:13)
[2021-08-28 19:28] LABS: ALBUMIN 2.8 g/dL (3.5-5.0); ANION GAP 20.8 MEQ/L (5-15); BILIRUBIN,TOTAL 0.5 mg/dL (0.2-1.3); Calcium 9.8 mg/dL (8.4-10.2); Creatinine 1 2.09 mg/dL (0.52-1.04); EST GLOMERULAR FILTRATION RATE 24.1 ML/MIN; Total Protein 5.8 g/dL (6.3-8.2)
[2021-08-28 19:31] LABS: Potassium 7.2 mmol/L (3.5-5.1)
[2021-08-28] MEDS ORDERED: Lasix 40 MG/4 ML IV ONE (19:47)
[2021-08-28] MEDS ORDERED: Lasix 40 MG/4 ML ONE (19:50)
[2021-08-28] MEDS ORDERED: VELTASSA PO STA (19:53)
[2021-08-28] MEDS ORDERED: D50W 50 ml Abboject IV ONE ×4 (19:54→20:59)
[2021-08-28] MEDS ORDERED: HUMULIN R SQ ONE (19:55)
[2021-08-28] MEDS ORDERED: Sodium Bicarbonate 50 MEQ/50 ML VIAL*** 75 MEQ in Dextrose 5% -0.45 NaCl 1000 ML 1,000 ML IV SCH (20:00)
[2021-08-28] MEDS ORDERED: Sodium Bicarbonate 50 MEQ/50 ML VIAL ONE (20:35)
[2021-08-28] MEDS ORDERED: Dextrose 5% -0.45 NaCl 1000 ML 1,000 ML IV ONE (20:35)
[2021-08-28 20:41] LABS: Appearance CLOUDY (CLEAR); Bacteria FEW /HPF (NEGATIVE); Bilirubin NEGATIVE (NEGATIVE); Blood LARGE Ery/ul (0-5); Glucose NEGATIVE (NEGATIVE); Ketones NEGATIVE (NEGATIVE); Leukocyte Esterase LARGE (NEGATIVE); Mucus SLIGHT /HPF (NEGATIVE); Nitrite NEGATIVE (NEGATIVE); Protein,Urine Dip 30 (Negative); RBC 51-100 /HPF (0-2); Specific Gravity 1.021 (1.005-1.025); Urobilinogen NEGATIVE mg/dL (0-1); WBC >100 /HPF (0-5)
[2021-08-28] MEDS ORDERED: HUMULIN R ONE (20:41)
[2021-08-28 20:54] LABS: Budding Yeast Rare /HPF (NEGATIVE)
[2021-08-28] MEDS ORDERED: Zosyn 3.375 GM Vial 3.375 GM in Sodium Chloride 100ML MINI-BAG PLUS 100 ML IV ONE (20:58)
[2021-08-28] MEDS ORDERED: VELTASSA PO ONE (20:59)
[2021-08-28] MEDS ORDERED: PROVENTIL 2.5 MG/3 ML NEB IH ONE ×2 (21:20→21:28)
[2021-08-28] MEDS ORDERED: Sodium Chloride 100ML MINI-BAG PLUS 100 ML IV ONE (21:34)
[2021-08-28] MEDS ORDERED: Zosyn 3.375 GM Vial IV ONE (21:34)
[2021-08-28 21:52] LABS: ANION GAP 18.1 MEQ/L (5-15); Calcium 9.4 mg/dL (8.4-10.2); Creatinine 1 1.99 mg/dL (0.52-1.04); EST GLOMERULAR FILTRATION RATE 25.5 ML/MIN
[2021-08-28 21:57] LABS: Potassium 7.3 mmol/L (3.5-5.1)
[2021-08-28] MEDS ORDERED: Calcium Gluconate 10% 1000 MG IV ONE (22:11)
[2021-08-28 22:13] VITALS: BP 101/57; PULSE 98; O2SAT 97
[2021-08-28] MEDS: Calcium Gluconate 10% 1000 MG IV ONE ×2 (22:13→22:48)
--- NOTE | 2021-08-29 08:41 | XRAY ---
Indication: Abdomen pain. Confusion. Multiple contiguous axial images obtained through the abdomen and pelvis without contrast. Comparison: June 02, 2021. Patient's arms produces mild beam artifact. Lung bases demonstrates new tiny bibasilar effusions with dependent atelectasis. Heart borderline enlarged. Noncontrasted stomach and bowel loops appear nonobstructed again with scattered colonic diverticulosis. Descending and proximal sigmoid colon now demonstrates minimal pericolonic stranding favoring diverticulitis. No free fluid/air. Gallbladder mildly distended without gallstones. Stable bilateral renal cysts, tiny left adrenal adenoma, splenic calcified granuloma, and hysterectomy. Remaining liver, pancreas, spleen, adrenal glands, kidneys, ureters, and bladder are unremarkable for noncontrast exam. There remains extensive scattered vascular calcifications are no AAA. Osseous structures again demonstrates osteopenia and multilevel compression fractures. Interval T12/L3/L5 vertebroplasty. Impression: 1. Again scattered colonic diverticulosis. New mild descending and sigmoid diverticulitis. No complications. 2. Distended gallbladder without stones. Gallbladder sonogram may yield further information if clinically warranted. 3. Borderline cardiomegaly with new tiny bibasilar effusions. Rule out mild/early cardiac decompensation versus fluid overload. 4. Again incidental bilateral renal cysts, left adrenal adenoma, and chronic bony findings.
--- NOTE | 2021-08-29 08:43 | XRAY ---
Indication: Left leg edema. Two-dimensional sonogram and color Doppler imaging of the major venous vessels of the left leg performed. Comparison: None No thrombus seen in the examined deep venous vessels of the left leg including greater saphenous vein. Veins demonstrate normal compressibility. Venous waveforms are normal with and without augmentation. Impression: Left leg negative for DVT. Comment: Preliminary report was given.
== END 2021-08-28 22:49 | disposition home or self-care (01) ==
LOC: ED 17:28
DX: D72.829 Elevated white blood cell count, unspecified (principal); D53.1 Other megaloblastic anemias, not elsewhere classified; E87.5 Hyperkalemia; E87.2 Acidosis; N17.9 Acute kidney failure, unspecified; R79.89 Other specified abnormal findings of blood chemistry; K57.92 Diverticulitis of intestine, part unspecified, without perforation or abscess without bleeding; J91.8 Pleural effusion in other conditions classified elsewhere; K82.8 Other specified diseases of gallbladder; Z79.818 Long term (current) use of other agents affecting estrogen receptors and estrogen levels; Z79.899 Other long term (current) drug therapy; Z79.01 Long term (current) use of anticoagulants; G62.9 Polyneuropathy, unspecified; M79.89 Other specified soft tissue disorders; I10 Essential (primary) hypertension
CPT/HCPCS: 36000; 36415; 74176; 80048; 80053; 81001; 83690; 83880; 84484; 85025; 87077; 87086; 87186; 93005; 93971; 94640; 96372; 96374; 96375; 99285; J0610; J1815; J1940; J2270; J2405; J7609; A9270-GY

== ENCOUNTER 2022-04-19 17:37 | Observation (INO) | payer MEDICARE ==
[2022-04-19] MEDS ORDERED: Sodium Chloride 0.9% 1000 ML 1,000 ML IV STA (18:17)
--- NOTE | 2022-04-19 18:21 | ERPHSYRPT ---
- History of Present Illness Source: patient, family Exam Limitations: no limitations Patient Subjective Stated Complaint: Pt states "I think I have a bladder infection. I have had a fever, diarrhea, and i just do not feel well." Triage Nursing Assessment: Pt presented alert and oriented X 3, skin pwd Pt ambulates with an upright steady gait, able to speak in clear full sentences. Pt able to move all extermities. pt has strong odor of urine. Pt has cholostomy that has been having diarreha. Timing/Duration: day(s) (2-3 days) Activites at Onset: none Severity of Pain-Max: none Severity of Pain-Current: none Sexual intercourse history: non-contributory Modifying Factors: Improves With: nothing Associated Symptoms: fever, chills, dysuria, urinary frequency Hx Tetanus, Diphtheria Vaccination/Date Given: Yes Hx Influenza Vaccination/Date Given: Yes Hx Pneumococcal Vaccination/Date Given: Yes <TRINH MINAYA - Last Filed: 04/19/22 18:22> <SHANDRA FUENTES - Last Filed: 04/19/22 19:37> - History of Present Illness Time Seen by Provider: 04/19/22 18:18 Physician History: Patient is 81-year-old female with multiple medical problems including atrial fibrillation congestive heart failure 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 Patient also has a decreased appetite and feeling weak. (MARIMAR,TRINH) Allergies/Adverse Reactions: ofloxacin [From Floxin] Allergy (Verified 09/18/21 09:02) Sulfa (Sulfonamide Antibiotics) [Sulfa(Sulfonamide Antibiotics)] Allergy (Verified 09/18/21 09:02) Home Medications: Allopurinol 300 mg [Zyloprim 300 mg] 300 mg PO DAILY 11/30/16 [History] Apixaban [Eliquis] 5 mg PO BID 11/30/16 [History] Levothyroxine Sodium [Synthroid] 200 mcg PO DAILY 11/30/16 [History] Magnesium Oxide 400 mg [Mag-Ox 400] 400 mg PO BID 11/30/16 [History] Vitamin B Complex [Super B-50 Complex] 1 cap PO DAILY 05/21/17 [History] Metformin HCl 500 mg PO BID 04/24/18 [History] Metoprolol Succinate 50 mg PO DAILY 09/05/20 [History] Pantoprazole Sodium [Protonix] 40 mg PO DAILY 08/19/21 [History] Acetaminophen [Tylenol Extra Strength] 500 mg PO Q4HPRN PRN 09/18/21 [History] Acetaminophen/Diphenhydramine [Tylenol Pm Ex-Strength Caplet] 1 tab PO HS 09/18/21 [History] Albuterol Sulfate [Proair Hfa] 2 puff IH Q6H PRN 09/18/21 [History] Amlodipine Besylate 2.5 mg PO DAILY 09/18/21 [History] Furosemide 40 mg [Lasix 40 MG] 40 mg PO DAILY 09/18/21 [History] Hydrocodone/APAP 5-325 Tab^^^ [[place] 5-325 Tablet^^^] 1 tab PO Q4HPRN PRN MDD 6 09/18/21 [History] Travel Risk - International Travel Have you traveled outside of the country in past 3 weeks: No - Coronavirus Screening Symptoms: Fever, Vomiting/Diarrhea - Vaccine Status Have you recieved a Covid-19 vaccination: Yes Access Services Assistant: Moderna - Vaccination Dates Date of 2cond Vaccination (if applicable): unk <MARIMAR, - Last Filed: 04/19/22 18:22> - Review of Systems Constitutional: Fever, Chills Eyes: No Symptoms Ears, Nose, & Throat: No Symptoms Respiratory: No Cough, No Dyspnea Cardiac: No Chest Pain, No Edema, No Syncope Abdominal/Gastrointestinal: Diarrhea, No Abdominal Pain, No Nausea, No Vomiting Genitourinary Symptoms: Dysuria, Urgency Musculoskeletal: No Back Pain, No Neck Pain Skin: No Rash Neurological: No Dizziness, No Focal Weakness, No Sensory Changes Psychological: No Symptoms Endocrine: No Symptoms All Other Systems: Reviewed and Negative <MARIMAR, - Last Filed: 04/19/22 18:22> - Past Medical History Pertinent Past Medical History: Yes Neurological History: Peripheral Neuropathy ENT History: No Pertinent History Cardiac History: Hypertension Respiratory History: COPD Endocrine Medical History: Diabetes Type II, Hypothyroidism Musculoskeletal History: Arthritis GI Medical History: Diverticulitis, Diverticulosis, Hemorrhoids, Hernia History: Renal Disease Psycho-Social History: No Pertinent History Female Reproductive Disorders: No Pertinent History Other Medical History: PE, ARRYTHMIA, RENAL DZ, DDD, RA, OA, MYELODSYPLASTIC SYNDROME. PSH: CARDIAC CATH, HYSTERECTOMY, LUMPECTOMY, BASAL AND SQUAMOUS CELL CA. - Past Surgical History Past Surgical History: Yes Neuro Surgical History: No Pertinent History Cardiac: Cardiac Catheterization Respiratory: No Pertinent History Gastrointestinal: No Pertinent History Genitourinary: No Pertinent History Musculoskeletal: No Pertinent History Female Surgical History: Hysterectomy, Lumpectomy Other Surgical History: breast tumor removed, tumor removed from back benign, 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, cauterization due to intestinal bleed - Social History Smoking Status: Never smoker Exposure to second hand smoke: No Drug Use: none Patient Lives Alone: No Significant Family History: no pertinent family hx < - Last Filed: 04/19/22 18:22> - Physical Exam General Appearance: no apparent distress, alert Eye Exam: PERRL/EOMI, eyes nml inspection Ears, Nose, Throat Exam: normal ENT inspection, TMs normal, pharynx normal, moist mucous membranes Neck Exam: normal inspection, non-tender, supple, full range of motion Respiratory Exam: diminished breath sounds, No respiratory distress Cardiovascular Exam: irregular, capillary refill >3 sec Gastrointestinal/Abdomen Exam: soft, other (colostomy functional), No tenderness, No mass Back Exam: normal inspection, normal range of motion, No CVA tenderness, No vert ebral tenderness Extremity Exam: normal inspection, normal range of motion, pelvis stable Neurologic Exam: alert, oriented x 3, cooperative, reconciliation analyst II-XII nml as tested, normal mood/affect, sensation nml, No motor deficits Skin Exam: normal color, warm, dry Lymphatic Exam: No adenopathy SpO2: 98 < - Last Filed: 04/19/22 18:22> - Nursing Vital Signs Nursing Vital Signs: Initial Vital Signs Temperature 99.8 F 04/19/22 17:48 Pulse Rate 96 H 04/19/22 17:48 Respiratory Rate 20 04/19/22 17:48 Blood Pressure 160/87 04/19/22 17:48 O2 Sat by Pulse Oximetry 98 04/19/22 17:48 Pain Scale Pain Intensity 0 - Course Nursing assessment & vital signs reviewed: Yes <MARIMAR,TRINH - Last Filed: 04/19/22 18:22> Ordered Tests: Active Orders 24 hr Category Date Time Status AMYLASE Stat Lab 04/19/22 18:21 Completed CBC W DIFF Stat Lab 04/19/22 18:21 Completed CMP Stat Lab 04/19/22 18:21 Completed CULTURE,URINE Stat Lab 04/19/22 18:53 Received FECAL OCCULT BLOOD - SCREENING Stat Lab 04/19/22 18:18 Ordered LIPASE Stat Lab 04/19/22 18:21 Completed UA W/RFX CULTURE Stat Lab 04/19/22 18:53 Completed Medication Summary Generic Name Dose Route Start Last Admin Trade Name Freq PRN Reason Stop Dose Admin Ceftriaxone Sodium/Dextrose 1 g in 50 mls @ 100 mls/hr 04/19/22 19:23 04/19/22 19:30 Rocephin 1 Gm-D5w 50 Ml Bag IV 04/19/22 19:52 100 mls/hr STAT STA 100 mls/hr Administration Discontinued Medications Generic Name Dose Route Start Last Admin Trade Name Freq PRN Reason Stop Dose Admin Sodium Chloride 1,000 mls @ 999 mls/hr 04/19/22 18:17 04/19/22 18:30 Sodium Chloride 0.9% 1000 Ml IV 04/19/22 19:17 999 mls/hr .Q1H1M STA Administration Sodium Chloride Confirm 04/19/22 18:29 Sodium Chloride 0.9% 1000 Ml Administered 04/19/22 18:30 Dose 1,000 mls @ ud .ROUTE .STK-MED ONE Ceftriaxone Sodium/Dextrose Confirm 04/19/22 19:29 Rocephin 1 Gm-D5w 50 Ml Bag Administered 04/19/22 19:30 Dose 1 g in 50 mls @ ud IV .STK-MED ONE Lab/Rad Data: Laboratory Result Diagrams 04/19/22 18:21 04/19/22 18:21 Laboratory Results 04/19/22 04/19/22 04/19/22 Range/Units 18:53 18:21 18:21 WBC 15.9 H (4.0-10.5) x10^3/uL RBC 3.93 L (4.1-5.4) x10^6/uL Hgb 11.8 L (12.0-16.0) g/dL Hct 37.4 (35-47) % MCV 95.2 (78-100) fL MCH 30.0 (26-32) pg MCHC 31.6 L (32-36) g/dL RDW 15.0 H (11.5-14.0) % Plt Count 217 (150-450) x10^3/uL MPV 10.1 (7.5-11.0) fL Gran % 58.6 (36.0-66.0) % Immature Gran % (Auto) 0.3 (0.00-0.4) % Nucleat RBC Rel Count 0.0 (0.00-0.1) % Eos # (Auto) 1.43 H (0-0.5) x10^3/uL Immature Gran # (Auto) 0.05 H (0.00-0.03) x10^3u/L Absolute Lymphs (auto) 4.16 (1.0-4.6) x10^3/uL Absolute Monos (auto) 0.88 (0.0-1.3) x10^3/uL Absolute Nucleated RBC 0.00 (0.00-0.01) x10^3u/L Lymphocytes % 26.2 (24.0-44.0) % Monocytes % 5.6 (0.0-12.0) % Eosinophils % 9.0 H (0.00-5.0) % Basophils % 0.3 (0.0-0.4) % Absolute Granulocytes 9.29 H (1.4-6.9) x10^3/uL Basophils # 0.04 (0-0.4) x10^3/uL Sodium 139 (137-145) mmol/L Potassium 4.5 (3.5-5.1) mmol/L Chloride 101 (98-107) mmol/L Carbon Dioxide 27 (22-30) mmol/L Anion Gap 14.8 (5-15) MEQ/L BUN 28 H (7-17) mg/dL Creatinine 1.73 H (0.52-1.04) mg/dL Estimated GFR 30.0 ML/MIN Glucose 162 H (74-106) mg/dL Calcium 9.9 (8.4-10.2) mg/dL Total Bilirubin 0.50 (0.2-1.3) mg/dL AST 22 (14-36) U/L ALT 10 (0-35) U/L Alkaline Phosphatase 136 H (38-126) U/L Serum Total Protein 7.9 (6.3-8.2) g/dL Albumin 4.1 (3.5-5.0) g/dL Amylase 64 (30-110) U/L Lipase 62 (23-300) U/L Urinalys Dipstick Clnc MAIN LAB Urine Color YELLOW (YELLOW) Urine Appearance CLOUDY (CLEAR) Urine pH 5.0 (5-6) Ur Specific [place] 1.015 (1.005-1.025) POC Urine Protein Conf TRACE (Negative) Urine Ketones NEGATIVE (NEGATIVE) Urine Nitrite NEGATIVE (NEGATIVE) Urine Bilirubin NEGATIVE (NEGATIVE) Urine Urobilinogen 0.2 (0-1) mg/dL Urine Leukocytes MODERATE (NEGATIVE) Urine WBC (Auto) >100 (0-5) /HPF Urine RBC (Auto) 26-50 (0-2) /HPF U Hyaline Cast (Auto) 11-25 (0-2) /LPF U Epithel Cells (Auto) RARE (FEW) /HPF Urine Bacteria (Auto) FEW (NEGATIVE) /HPF Urine RBC SMALL (0-5) Quentin/ul Urine Mucus (Auto) SLIGHT (NEGATIVE) /HPF Ur Culture Indicated? YES Urine Glucose NEGATIVE (NEGATIVE) mg/dL - Progress Progress: improved Air Movement: good Blood Culture(s) Obtained: No Antibiotics given: Yes Discussed with : Kalyn Will see patient in: hospital (observation) <SHANDRA FUENTES - Last Filed: 04/19/22 19:37> <TRINH MINAYA - Last Filed: 04/19/22 18:22> - Departure Departure Disposition: Observation Critical Care Time: No <SHANDRA FUENTES - Last Filed: 04/19/22 19:37> - Departure Clinical Impression: Urinary tract infection, Dehydration Condition: Fair Referrals: TRINH MINAYA MD [Primary Care Provider] - Follow up/PCP as directed
[2022-04-19 18:24] LABS: Absolute Neutrophil Ct (ANC) 9.29 x10^3/uL (1.4-6.9); Basophil (Absolute #) 0.04 x10^3/uL (0-0.4); Eosinophil (Absolute #) 1.43 x10^3/uL (0-0.5); Hematocrit 37.4 % (35-47); Hemoglobin 11.8 g/dL (12.0-16.0); Lymphocyte (Absolute #) 4.16 x10^3/uL (1.0-4.6); Lymphocytes % 26.2 % (24.0-44.0); Mean Cell Volume 95.2 fL (78-100); Mean Corpuscular Hgb Concent. 31.6 g/dL (32-36); Mean Platelet Volume 10.1 fL (7.5-11.0); Monocyte (Absolute #) 0.88 x10^3/uL (0.0-1.3); Monocytes % 5.6 % (0.0-12.0); Neutrophil % 58.6 % (36.0-66.0); Platelet Count 217 x10^3/uL (150-450); Red Blood Count 3.93 x10^6/uL (4.1-5.4); White Blood Count 15.9 x10^3/uL (4.0-10.5)
[2022-04-19] MEDS ORDERED: Sodium Chloride 0.9% 1000 ML 1,000 ML ONE (18:29)
[2022-04-19 18:38] LABS: ALBUMIN 4.1 g/dL (3.5-5.0); ANION GAP 14.8 MEQ/L (5-15); BILIRUBIN,TOTAL 0.5 mg/dL (0.2-1.3); Calcium 9.9 mg/dL (8.4-10.2); Creatinine 1 1.73 mg/dL (0.52-1.04); Potassium 4.5 mmol/L (3.5-5.1); Total Protein 7.9 g/dL (6.3-8.2)
[2022-04-19 19:01] LABS: Bacteria FEW /HPF (NEGATIVE); Epithelial Cells RARE /HPF (FEW); Mucus SLIGHT /HPF (NEGATIVE); RBC 26-50 /HPF (0-2); WBC >100 /HPF (0-5)
[2022-04-19 19:04] LABS: Appearance CLOUDY (CLEAR); Bilirubin NEGATIVE (NEGATIVE); Dipstick done @ ? MAIN LAB; Glucose NEGATIVE (NEGATIVE); Ketones NEGATIVE (NEGATIVE); Nitrite NEGATIVE (NEGATIVE); Protein,Urine Dip TRACE (Negative); RBC SMALL Ery/ul (0-5); Specific Gravity 1.015 (1.005-1.025); Urobilinogen 0.2 mg/dL (0-1)
[2022-04-19 19:06] LABS: Urine Cultured Indicated? YES
[2022-04-19] MEDS ORDERED: ROCEPHIN 1 Gm-D5w 50 ml Bag** 1 G/50 ML IVPB IV STA (19:23)
[2022-04-19] MEDS ORDERED: ROCEPHIN 1 Gm-D5w 50 ml Bag** 1 G/50 ML IVPB IV ONE (19:29)
[2022-04-19] MEDS ORDERED: Zofran 4 MG/2 ML VIAL IV PRN (19:38)
[2022-04-19] MEDS: Sodium Chloride 0.9% 1000 ML 1,000 ML IV SCH ×2 (19:57→23:27)
[2022-04-19 20:28] LABS: INFLUENZA A NEGATIVE (NEGATIVE); INFLUENZA B NEGATIVE (NEGATIVE); RESPIRATORY SYNCTIAL VIRUS NEGATIVE (Negative); SARS-CoV-2 Xpert Express NEGATIVE (NEGATIVE)
[2022-04-19] MEDS ORDERED: HYDROCODONE-ACETAMIN 10-325 MG PO PRN (22:44)
[2022-04-19] MEDS ORDERED: BENADRYL 25 MG CAPSULE PO PRN (22:48)
[2022-04-20 04:21] VITALS: BP 131/59
[2022-04-20 06:27] LABS: ALBUMIN 2.8 g/dL (3.5-5.0); ANION GAP 9.3 MEQ/L (5-15); BILIRUBIN,TOTAL 0.5 mg/dL (0.2-1.3); Calcium 8.9 mg/dL (8.4-10.2); Creatinine 1 1.25 mg/dL (0.52-1.04); EST GLOMERULAR FILTRATION RATE 43.6 ML/MIN; Potassium 3.7 mmol/L (3.5-5.1); Total Protein 5.7 g/dL (6.3-8.2)
[2022-04-20 06:28] LABS: Absolute Neutrophil Ct (ANC) 4.89 x10^3/uL (1.4-6.9); Basophil (Absolute #) 0.03 x10^3/uL (0-0.4); Eosinophil % 12.3 % (0.00-5.0); Eosinophil (Absolute #) 1.16 x10^3/uL (0-0.5); Hematocrit 29.5 % (35-47); Hemoglobin 9.3 g/dL (12.0-16.0); Lymphocyte (Absolute #) 2.66 x10^3/uL (1.0-4.6); Lymphocytes % 28.2 % (24.0-44.0); Mean Cell Volume 94.2 fL (78-100); Mean Corpuscular Hemoglobin 29.7 pg (26-32); Mean Corpuscular Hgb Concent. 31.5 g/dL (32-36); Mean Platelet Volume 9.9 fL (7.5-11.0); Monocyte (Absolute #) 0.66 x10^3/uL (0.0-1.3); Platelet Count 164 x10^3/uL (150-450); Red Blood Count 3.13 x10^6/uL (4.1-5.4); White Blood Count 9.4 x10^3/uL (4.0-10.5)
[2022-04-20 07:31] VITALS: PULSE 78; O2SAT 95
[2022-04-20] MEDS ORDERED: ROCEPHIN 1 Gm-D5w 50 ml Bag** 1 G/50 ML IVPB IV SCH (22:00)
--- NOTE | 2022-04-22 08:40 | SSS ---
DISCHARGE DIAGNOSES: 1) URINARY TRACT INFECTION. 2) DEHYDRATION. 3) BASAL CELL SKIN CANCER. 4) HISTORY OF COLECTOMY FOR DIVERTICULOSIS AND PERFORATION. HISTORY: The patient is an 81-year-old white female who presented to the emergency room with complaints of thinking she had a urinary tract infection. She has had these in the past and felt like it was recurrent. She was having some loose stools through her colostomy bag which led her to be somewhat dehydrated. She was brought into the emergency room and admitted to the hospital for further evaluation and management. PAST MEDICAL/SURGICAL HISTORY: The patient's medical history is otherwise significant for peripheral neuropathy, hypertension, chronic obstructive pulmonary disease, diabetes mellitus type II, hypothyroidism, diverticulosis with diverticulitis and the previously mentioned colon surgery. She also previously had myelodysplastic syndrome. She had hysterectomy and lumpectomy. HOME MEDICATIONS: Currently is allopurinol 300 mg daily, Eliquis 5 mg b.i.d., levothyroxine 200 mcg daily, magnesium 400 mg tablet b.i.d. She takes a multivitamin, Metformin 500 mg b.i.d., metoprolol 50 mg daily, pantoprazole 40 mg daily, albuterol HFA PRN, amlodipine 2.5 mg daily, Lasix 40 mg daily, [place] 5/325 every 4 hours PRN for pain. ALLERGIES: SULFA. FLOXIN. PHYSICAL EXAMINATION: The patient's vital signs in the emergency room showed her temperature to be 99.8F, pulse 96, respiratory rate 20, blood pressure 160/87. O2 saturation 98% on room air. HEENT: Normocephalic, atraumatic. Pupils equal round reactive to light. Extraocular movements intact. Oropharynx is pink and moist. NECK: Supple without lymphadenopathy, thyromegaly or JVD. CHEST: Clear to auscultation. HEART: Regular rate and rhythm without murmurs, rubs or gallops heard. ABDOMEN: Shows the colostomy bag in place. No palpable masses. EXTREMITIES: Without cyanosis, clubbing or edema. SKIN: Her skin has basal cell skin cancer on the right cheek area that has been treated with radiation treatments presently. LAB DATA AND TESTS: Her labs in the emergency room showed glucose 105, BUN 21, creatinine 1.25. Electrolytes were normal. Liver enzymes were normal. She had a urine showing greater than 100 white blood cells per high power field. Cultures are currently pending. She was placed on Rocephin in the emergency room. HOSPITAL COURSE: The patient after receiving IV Rocephin and IV fluids had felt much better and is quite anxious to go home. At the time of discharge the most recent vitals showed her temperature 97.8F, pulse 86, respiratory rate 19 and blood pressure 131/59. O2 saturation was 90%. The patient will be sent home on Keflex 500 mg t.i.d. She will be seen in follow up with Dr. Green. She is to receive radiation treatment on her cheek tomorrow morning. She will continue her usual home medications otherwise.
== END 2022-04-20 11:07 | disposition home or self-care (01) ==
LOC: ED 17:37 → MED SURG 21:17
PROVIDERS: ADMIT Family Medicine; ATTEND General Practice
DX: N39.0 Urinary tract infection, site not specified (principal); E86.0 Dehydration; C44.91 Basal cell carcinoma of skin, unspecified; I10 Essential (primary) hypertension; J44.9 Chronic obstructive pulmonary disease, unspecified; E11.9 Type 2 diabetes mellitus without complications; E03.9 Hypothyroidism, unspecified; Z93.3 Colostomy status; Z79.01 Long term (current) use of anticoagulants; Z79.899 Other long term (current) drug therapy; Z20.828 Contact with and (suspected) exposure to other viral communicable diseases
CPT/HCPCS: 0241U; 36415; 80053; 81015; 82150; 83690; 85025; 87086; 96360; 96365; 99285; G0378; J0696

== ENCOUNTER 2022-05-01 21:36 | Observation (INO) | payer MEDICARE ==
[2022-05-01] MEDS ORDERED: Zofran 4 MG/2 ML VIAL IV ONE (22:42)
[2022-05-01] MEDS ORDERED: Sodium Chloride 0.9% 1000 ML 1,000 ML IV STA (22:42)
--- NOTE | 2022-05-01 22:48 | ERPHSYRPT ---
- History of Present Illness Time Seen by Provider: 05/01/22 21:52 Historian: patient Exam Limitations: no limitations Patient Subjective Stated Complaint: pt daughter mando she has had abdominal pain and diarrhea for 72 hours was diagnosed with cdiff today. states she has been on antibiotics therapy for UTI 12 days ago. Triage Nursing Assessment: pt is alert and oriented. SUN'AQ. 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 Patient is having multiple bags of colostomy diarrhea, feeling weak fatigued tired and dehydrated. Reports having moderate to severe abdominal pain last night but today is having more of a nausea and pain is better. Earlier her home health nurse checked for C. difficile and it was positive and she is also having low- grade fever, taking Tylenol last 2 to 3 days. Timing/Duration: week(s) (2), intermittent, worse Activities at Onset: rest Quality: sharpness Abdominal Pain Onset Location: generalized abdomen Pain Radiation: no radiation Severity of Pain-Max: moderate Severity of Pain-Current: mild Modifying Factors: Worsens With: movement, palpation Associated Symptoms: diarrhea Previous symptoms: no prior history Allergies/Adverse Reactions: ofloxacin [From Floxin] Allergy (Verified 05/01/22 21:54) Sulfa (Sulfonamide Antibiotics) [Sulfa(Sulfonamide Antibiotics)] Allergy (Verified 05/01/22 21:54) Home Medications: Allopurinol 300 mg [Zyloprim 300 mg] 300 mg PO DAILY 11/30/16 [History] Apixaban [Eliquis] 5 mg PO DAILY 11/30/16 [History] Levothyroxine Sodium [Synthroid] 200 mcg PO DAILY 11/30/16 [History] Magnesium Oxide 400 mg [Mag-Ox 400] 400 mg PO BID 11/30/16 [History] Vitamin B Complex [Super B-50 Complex] 1 cap PO DAILY 05/21/17 [History] Metformin HCl 500 mg PO BID 04/24/18 [History] Metoprolol Succinate 50 mg PO DAILY 09/05/20 [History] Pantoprazole Sodium [Protonix] 40 mg PO DAILY 08/19/21 [History] Acetaminophen/Diphenhydramine [Tylenol Pm Exstr 500-25Mg Cplt] 1 tab PO HS 09/18/21 [History] Albuterol Sulfate [Proair Hfa] 2 puff IH Q6H PRN 09/18/21 [History] Amlodipine Besylate 2.5 mg PO DAILY 09/18/21 [History] Furosemide 40 mg [Lasix 40 MG] 40 mg PO BID 09/18/21 [History] Hydrocodone/APAP 5-325 Tab^^^ [[place] 5-325 Tablet^^^] 10 mg PO Q6H 09/18/21 [History] Ascorbic Acid 500 mg [Vitamin C 500 MG] 500 mg PO DAILY 04/19/22 [History] Diphenhydramine HCl [Benadryl Allergy] 50 mg PO DAILY 04/19/22 [History] Potassium Chloride 10 meq PO DAILY 04/19/22 [History] Tamsulosin HCl 0.4 mg [Flomax 0.4 MG] 0.4 mg PO DAILY 04/19/22 [History] Zinc 50 mg PO DAILY 04/19/22 [History] Hx Tetanus, Diphtheria Vaccination/Date Given: Yes Hx Influenza Vaccination/Date Given: Yes Hx Pneumococcal Vaccination/Date Given: Yes Travel Risk - International Travel Have you traveled outside of the country in past 3 weeks: No - Coronavirus Screening Are you exhibiting any of the following symptoms?: No Close contact with a COVID-19 positive Pt in past 14-21 Days: No - Vaccine Status Have you recieved a Covid-19 vaccination: Yes 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[employer] - Vaccination Dates Date of 2cond Vaccination (if applicable): unknown - Review of Systems Constitutional: Fatigue, Weakness Eyes: No Symptoms Ears, Nose, & Throat: No Symptoms Respiratory: No Symptoms Cardiac: No Symptoms Abdominal/Gastrointestinal: Abdominal Pain, Nausea, Diarrhea Genitourinary Symptoms: No Symptoms Musculoskeletal: No Symptoms Skin: No Symptoms Neurological: No Symptoms Endocrine: No Symptoms Hematologic/Lymphatic: No Symptoms Immunological/Allergic: No Symptoms - Past Medical History Pertinent Past Medical History: Yes Neurological History: Peripheral Neuropathy ENT History: No Pertinent History Cardiac History: Hypertension Respiratory History: COPD Endocrine Medical History: Diabetes Type II, Hypothyroidism Musculoskeletal History: Arthritis GI Medical History: Diverticulitis, Diverticulosis, Hemorrhoids, Hernia History: Renal Disease Psycho-Social History: No Pertinent History Female Reproductive Disorders: No Pertinent History Other Medical History: PE, ARRYTHMIA, RENAL DZ, DDD, RA, OA, MYELODSYPLASTIC SYNDROME. PSH: CARDIAC CATH, HYSTERECTOMY, LUMPECTOMY, BASAL AND SQUAMOUS CELL CA. - Past Surgical History Past Surgical History: Yes Neuro Surgical History: No Pertinent History Cardiac: Cardiac Catheterization Respiratory: No Pertinent History Gastrointestinal: No Pertinent History Genitourinary: No Pertinent History Musculoskeletal: No Pertinent History Female Surgical History: Hysterectomy, Lumpectomy Other Surgical History: breast tumor removed, tumor removed from back benign, 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, cauterization due to intestinal bleed - Social History Smoking Status: Never smoker Exposure to second hand smoke: No Drug Use: none Patient Lives Alone: No Significant Family History: no pertinent family hx - Nursing Vital Signs Nursing Vital Signs: Initial Vital Signs Temperature 98.7 F 05/01/22 21:43 Pulse Rate 96 H 05/01/22 21:43 Respiratory Rate 18 05/01/22 21:43 Blood Pressure 172/65 05/01/22 21:43 O2 Sat by Pulse Oximetry 96 05/01/22 21:43 Pain Scale Pain Intensity 0 - Physical Exam General Appearance: no apparent distress, alert Eye Exam: PERRL/EOMI Ears, Nose, Throat Exam: pharynx normal Neck Exam: normal inspection, full range of motion Respiratory Exam: normal breath sounds, lungs clear Cardiovascular Exam: regular rate/rhythm, normal heart sounds Gastrointestinal/Abdomen Exam: soft, normal bowel sounds, tenderness (Generalized) Back Exam: normal inspection Extremity Exam: normal inspection, pelvis stable Neurologic Exam: alert, oriented x 3, cooperative, sensation nml Skin Exam: normal color SpO2 Interpretation: normal SpO2: 95 O2 Delivery: Room Air Ordered Tests: Active Orders 24 hr Category Date Time Status IV Insertion STAT Care 05/01/22 22:42 Active NPO (ED) STAT Care 05/01/22 22:42 Active ABDOMEN AND PELVIS W/0 CONTRAS [CT] Stat Exams 05/01/22 23:06 Taken CBC W DIFF Stat Lab 05/01/22 23:00 Completed CMP Stat Lab 05/01/22 23:00 Completed LIPASE Stat Lab 05/01/22 23:00 Completed Lactic Acid Stat Lab 05/01/22 22:55 Completed UA W/RFX CULTURE Stat Lab 05/02/22 00:16 Results Medication Summary Discontinued Medications Generic Name Dose Route Start Last Admin Trade Name Ximena PRN Reason Stop Dose Admin Sodium Chloride 1,000 mls @ 499 mls/hr 05/01/22 22:42 05/01/22 23:36 Sodium Chloride 0.9% 1000 Ml IV 05/02/22 00:42 499 mls/hr .Q2H1M STA Administration Sodium Chloride Confirm 05/01/22 23:02 Sodium Chloride 0.9% 1000 Ml Administered 05/01/22 23:03 Dose 1,000 mls @ ud .ROUTE .STK-MED ONE Ondansetron HCl 4 mg 05/01/22 22:42 05/01/22 23:36 Ondansetron Hcl 4 Mg/2 Ml Vial IV 05/01/22 22:43 4 mg STAT ONE Administration Ondansetron HCl Confirm 05/01/22 23:02 Ondansetron Hcl 4 Mg/2 Ml Vial Administered 05/01/22 23:03 Dose 4 mg .ROUTE .STK-MED ONE Vancomycin HCl 125 mg 05/02/22 00:13 05/02/22 00:28 Vancomycin Hcl 125 Mg Capsule PO 05/02/22 00:14 125 mg ONCE STA Administration Lab/Rad Data: Laboratory Result Diagrams 05/01/22 23:00 05/01/22 23:00 Laboratory Results 05/02/22 05/01/22 05/01/22 Range/Units 00:16 23:00 23:00 WBC 15.7 H (4.0-10.5) x10^3/uL RBC 3.71 L (4.1-5.4) x10^6/uL Hgb 11.1 L (12.0-16.0) g/dL Hct 35.2 (35-47) % MCV 94.9 (78-100) fL MCH 29.9 (26-32) pg MCHC 31.5 L (32-36) g/dL RDW 14.8 H (11.5-14.0) % Plt Count 200 (150-450) x10^3/uL MPV 9.8 (7.5-11.0) fL Gran % 42.0 (36.0-66.0) % Immature Gran % (Auto) 0.5 H (0.00-0.4) % Nucleat RBC Rel Count 0.0 (0.00-0.1) % Eos # (Auto) 3.37 H (0-0.5) x10^3/uL Immature Gran # (Auto) 0.08 H (0.00-0.03) x10^3u/L Absolute Lymphs (auto) 4.74 H (1.0-4.6) x10^3/uL Absolute Monos (auto) 0.82 (0.0-1.3) x10^3/uL Absolute Nucleated RBC 0.00 (0.00-0.01) x10^3u/L Lymphocytes % 30.2 (24.0-44.0) % Monocytes % 5.2 (0.0-12.0) % Eosinophils % 21.5 H (0.00-5.0) % Basophils % 0.6 (0.0-0.4) % Absolute Granulocytes 6.58 (1.4-6.9) x10^3/uL Basophils # 0.10 (0-0.4) x10^3/uL Sodium 135 L (137-145) mmol/L Potassium 4.5 (3.5-5.1) mmol/L Chloride 101 (98-107) mmol/L Carbon Dioxide 27 (22-30) mmol/L Anion Gap 10.8 (5-15) MEQ/L BUN 29 H (7-17) mg/dL Creatinine 1.54 H (0.52-1.04) mg/dL Estimated GFR 34.3 ML/MIN Glucose 111 H (74-106) mg/dL Lactic Acid (0.4-2.0) Calcium 9.5 (8.4-10.2) mg/dL Total Bilirubin 0.50 (0.2-1.3) mg/dL AST 21 (14-36) U/L ALT 9 (0-35) U/L Alkaline Phosphatase 116 (38-126) U/L Serum Total Protein 6.7 (6.3-8.2) g/dL Albumin 3.4 L (3.5-5.0) g/dL Lipase 67 (23-300) U/L Urinalys Dipstick Clnc MAIN LAB Urine Color YELLOW (YELLOW) Urine Appearance CLEAR (CLEAR) Urine pH 5.5 (5-6) Ur Specific Blanchard 1.010 (1.005-1.025) POC Urine Protein Conf NEGATIVE (Negative) Urine Ketones NEGATIVE (NEGATIVE) Urine Nitrite NEGATIVE (NEGATIVE) Urine Bilirubin NEGATIVE (NEGATIVE) Urine Urobilinogen 0.2 (0-1) mg/dL Urine Leukocytes MODERATE (NEGATIVE) Urine WBC (Auto) Pending Urine RBC (Auto) Pending U Epithel Cells (Auto) Pending Urine Bacteria (Auto) Pending Urine RBC TRACE-INTACT (0-5) Quentin/ul Ur Culture Indicated? Pending Urine Glucose NEGATIVE (NEGATIVE) mg/dL 05/01/22 Range/Units 22:55 WBC (4.0-10.5) x10^3/uL RBC (4.1-5.4) x10^6/uL Hgb (12.0-16.0) g/dL Hct (35-47) % MCV (78-100) fL MCH (26-32) pg MCHC (32-36) g/dL RDW (11.5-14.0) % Plt Count (150-450) x10^3/uL MPV (7.5-11.0) fL Gran % (36.0-66.0) % Immature Gran % (Auto) (0.00-0.4) % Nucleat RBC Rel Count (0.00-0.1) % Eos # (Auto) (0-0.5) x10^3/uL Immature Gran # (Auto) (0.00-0.03) x10^3u/L Absolute Lymphs (auto) (1.0-4.6) x10^3/uL Absolute Monos (auto) (0.0-1.3) x10^3/uL Absolute Nucleated RBC (0.00-0.01) x10^3u/L Lymphocytes % (24.0-44.0) % Monocytes % (0.0-12.0) % Eosinophils % (0.00-5.0) % Basophils % (0.0-0.4) % Absolute Granulocytes (1.4-6.9) x10^3/uL Basophils # (0-0.4) x10^3/uL Sodium (137-145) mmol/L Potassium (3.5-5.1) mmol/L Chloride (98-107) mmol/L Carbon Dioxide (22-30) mmol/L Anion Gap (5-15) MEQ/L BUN (7-17) mg/dL Creatinine (0.52-1.04) mg/dL Estimated GFR ML/MIN Glucose (74-106) mg/dL Lactic Acid 1.0 (0.4-2.0) Calcium (8.4-10.2) mg/dL Total Bilirubin (0.2-1.3) mg/dL AST (14-36) U/L ALT (0-35) U/L Alkaline Phosphatase (38-126) U/L Serum Total Protein (6.3-8.2) g/dL Albumin (3.5-5.0) g/dL Lipase (23-300) U/L Urinalys Dipstick Clnc Urine Color (YELLOW) Urine Appearance (CLEAR) Urine pH (5-6) Ur Specific Blanchard (1.005-1.025) POC Urine Protein Conf (Negative) Urine Ketones (NEGATIVE) Urine Nitrite (NEGATIVE) Urine Bilirubin (NEGATIVE) Urine Urobilinogen (0-1) mg/dL Urine Leukocytes (NEGATIVE) Urine WBC (Auto) Urine RBC (Auto) U Epithel Cells (Auto) Urine Bacteria (Auto) Urine RBC (0-5) Quentin/ul Ur Culture Indicated? Urine Glucose (NEGATIVE) mg/dL - Progress Progress: improved, pain not gone completely, re-examined Progress Note: 05/02/22 00:50 81 years old is evaluated for abdominal pain with increased ostomy output and positive C. difficile. She is started on oral vancomycin. Work-up showed white count of 15, CKD. Discussed with , reviewed history, work-up and patient is excepted for admission. Discussed with : Alexandre Will see patient in: hospital (observation) Counseled pt/family regarding: lab results, diagnosis, need for follow-up, rad results - Departure Departure Disposition: Observation Clinical Impression: Clostridium difficile colitis Condition: Stable Critical Care Time: No Referrals: TRINH MINAYA MD [Primary Care Provider] - Follow up/PCP as directed
[2022-05-01 23:02] LABS: Absolute Neutrophil Ct (ANC) 6.58 x10^3/uL (1.4-6.9); Eosinophil % 21.5 % (0.00-5.0); Eosinophil (Absolute #) 3.37 x10^3/uL (0-0.5); Hematocrit 35.2 % (35-47); Hemoglobin 11.1 g/dL (12.0-16.0); Lymphocyte (Absolute #) 4.74 x10^3/uL (1.0-4.6); Lymphocytes % 30.2 % (24.0-44.0); Mean Cell Volume 94.9 fL (78-100); Mean Corpuscular Hemoglobin 29.9 pg (26-32); Mean Corpuscular Hgb Concent. 31.5 g/dL (32-36); Mean Platelet Volume 9.8 fL (7.5-11.0); Monocyte (Absolute #) 0.82 x10^3/uL (0.0-1.3); Monocytes % 5.2 % (0.0-12.0); Platelet Count 200 x10^3/uL (150-450); Red Blood Count 3.71 x10^6/uL (4.1-5.4); Red Cell Distribution Width 14.8 % (11.5-14.0); White Blood Count 15.7 x10^3/uL (4.0-10.5)
[2022-05-01] MEDS ORDERED: Sodium Chloride 0.9% 1000 ML 1,000 ML ONE (23:02)
[2022-05-01] MEDS ORDERED: Zofran 4 MG/2 ML VIAL ONE (23:02)
[2022-05-01 23:21] LABS: ALBUMIN 3.4 g/dL (3.5-5.0); ANION GAP 10.8 MEQ/L (5-15); BILIRUBIN,TOTAL 0.5 mg/dL (0.2-1.3); Calcium 9.5 mg/dL (8.4-10.2); Creatinine 1 1.54 mg/dL (0.52-1.04); EST GLOMERULAR FILTRATION RATE 34.3 ML/MIN; Potassium 4.5 mmol/L (3.5-5.1); Total Protein 6.7 g/dL (6.3-8.2)
[2022-05-02] MEDS ORDERED: VANCOMYCIN HCL CAPSULE PO STA (00:13)
[2022-05-02 00:43] LABS: Appearance CLEAR (CLEAR); Bilirubin NEGATIVE (NEGATIVE); Dipstick done @ ? MAIN LAB; Glucose NEGATIVE (NEGATIVE); Ketones NEGATIVE (NEGATIVE); Nitrite NEGATIVE (NEGATIVE); Ph 5.5 (5-6); Protein,Urine Dip NEGATIVE (Negative); RBC TRACE-INTACT Ery/ul (0-5); Urobilinogen 0.2 mg/dL (0-1)
[2022-05-02 00:55] LABS: Slide Review 1 YES
[2022-05-02 00:58] LABS: Bacteria MANY /HPF (NEGATIVE); WBC >100 /HPF (0-5)
[2022-05-02 00:59] LABS: Urine Cultured Indicated? YES
[2022-05-02] MEDS ORDERED: MORPHINE SULFATE 4 MG INJ IV ONE (01:39)
[2022-05-02] MEDS ORDERED: MORPHINE SULFATE 4 MG INJ ONE (01:46)
[2022-05-02 02:12] LABS: INFLUENZA A NEGATIVE (NEGATIVE); INFLUENZA B NEGATIVE (NEGATIVE); RESPIRATORY SYNCTIAL VIRUS NEGATIVE (Negative); SARS-CoV-2 Xpert Express NEGATIVE (NEGATIVE)
[2022-05-02] MEDS ORDERED: MORPHINE SULFATE 2 MG INJ IV PRN (03:05)
[2022-05-02] MEDS ORDERED: DUONEB 0.5-3 MG/3 ml Neb IH PRN (03:05)
[2022-05-02] MEDS ORDERED: Zofran 4 MG/2 ML VIAL IV PRN (03:05)
[2022-05-02] MEDS ORDERED: HUMALOG SQ PRN (03:05)
[2022-05-02] MEDS ORDERED: TYLENOL 325 MG PO PRN (03:05)
[2022-05-02] MEDS: Sodium Chloride 0.9% 1000 ML 1,000 ML IV SCH ×2 (04:10→14:06)
[2022-05-02 04:42] LABS: Hematocrit 33.2 % (35-47); Hemoglobin 10.8 g/dL (12.0-16.0); Mean Corpuscular Hemoglobin 30.3 pg (26-32); Mean Corpuscular Hgb Concent. 32.5 g/dL (32-36); Mean Platelet Volume 9.8 fL (7.5-11.0); Platelet Count 193 x10^3/uL (150-450); Red Blood Count 3.57 x10^6/uL (4.1-5.4); White Blood Count 13.2 x10^3/uL (4.0-10.5)
[2022-05-02 05:10] LABS: ANION GAP 9.6 MEQ/L (5-15); Calcium 9.3 mg/dL (8.4-10.2); Creatinine 1 1.45 mg/dL (0.52-1.04); EST GLOMERULAR FILTRATION RATE 36.7 ML/MIN; PREALBUMIN 20.4 mg/dL (17.6-36.0); Potassium 4.6 mmol/L (3.5-5.1)
--- NOTE | 2022-05-02 09:01 | XRAY ---
Indication: Abdomen pain and diarrhea. Positive C. difficile. Multiple contiguous axial images obtained through the abdomen and pelvis without contrast. Comparison: August 28, 2021. Lung bases now clear. Heart remains borderline enlarged. Noncontrasted stomach and bowel loops remain nonobstructed again with scattered colonic diverticulosis. Left abdomen bowel loops and colon demonstrates intraluminal radiopacities presumed ingested medication/bismuth or barium. Left abdominal small bowel loops now demonstrates moderate circumferential wall thickening favoring enteritis. Lymphoma not completely excluded. New left mid abdomen diverting colostomy without complications. No free fluid/air. Gallbladder remains distended without gallstones or biliary distention. Stable bilateral renal cysts, tiny left adrenal adenoma, splenic calcified granuloma, and hysterectomy. Remaining liver, gallbladder, pancreas, spleen, adrenal glands, kidneys, ureters, and bladder are unremarkable for noncontrast exam. Again extensive scattered vascular calcifications without AAA. Osseous structures again demonstrates osteopenia, multilevel remote thoracolumbar compression fractures, and T12/L3/L5 vertebroplasty. Impression: 1. New left abdomen small bowel wall thickening favoring enteritis. Lymphoma not completely excluded. 2. New left diverting colostomy without complications. 3. Again distended gallbladder without gallstones. Gallbladder sonogram may yield further information if clinically warranted. 4. Stable borderline cardiomegaly, bilateral renal cysts, left adrenal adenoma, extensive arteriosclerotic disease, and chronic bony findings. Comment: Preliminary interpretation made by [facility]. No critical discrepancy.
[2022-05-02] MEDS ORDERED: PROTONIX 40 MG IV IV SCH (10:00)
[2022-05-02] MEDS: VANCOMYCIN HCL CAPSULE PO SCH ×4 (10:50→22:22)
[2022-05-02] MEDS ORDERED: NORCO 5/325 MG PO SCH (12:00)
[2022-05-02] MEDS ORDERED: HYDROCODONE-ACETAMIN 10-325 MG PO PRN (12:09)
[2022-05-02] MEDS: BENADRYL 25 MG CAPSULE PO SCH ×2 (12:19→22:22)
[2022-05-02] MEDS: Lasix 40 MG PO SCH ×2 (12:19→18:08)
[2022-05-02] MEDS: Glucophage 500 MG PO SCH ×2 (12:19→18:08)
[2022-05-02] MEDS: SYNTHROID 25 MCG PO SCH (12:20)
[2022-05-02] MEDS: Toprol Xl 50 MG PO SCH (12:20)
[2022-05-02] MEDS: Flomax 0.4 MG PO SCH (12:20)
[2022-05-02] MEDS: ELIQUIS 2.5 MG TABLET PO SCH (12:20)
[2022-05-02] MEDS: ZYLOPRIM 300 MG PO SCH (12:20)
[2022-05-02] MEDS: Vitamin C 500 MG PO SCH (12:20)
[2022-05-02] MEDS: Klor Con PO SCH (12:20)
[2022-05-02] MEDS: HYDROCODONE-ACETAMIN 10-325 MG PO SCH ×2 (12:20→18:08)
[2022-05-02] MEDS: MAG-OX 400 PO SCH ×2 (12:20→22:22)
[2022-05-02] MEDS: NORVASC 5 MG PO SCH (12:21)
[2022-05-02] MEDS: SYNTHROID 100 MCG PO SCH (12:21)
[2022-05-02] MEDS: Zinc Gluconate 50 MG PO SCH (12:30)
[2022-05-02] MEDS: VITA-BEE WITH C PO SCH (12:30)
[2022-05-02] MEDS: VENTOLIN COMMON CANISTER IH PRN (19:21)
[2022-05-02] MEDS: TYLENOL EXTRA STRENGTH 500 MG PO SCH (22:20)
[2022-05-03] MEDS: HYDROCODONE-ACETAMIN 10-325 MG PO SCH ×4 (05:46→17:09)
--- NOTE | 2022-05-03 07:33 | PCM.HP ---
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 Patient is having multiple bags of colostomy diarrhea, feeling weak fatigued tired and dehydrated. Reports having moderate to severe abdominal pain last night but today is having more of a nausea and pain is better. Earlier her home health nurse checked for C. difficile and it was positive and she is also having low-grade fever, taking Tylenol last 2 to 3 days. Timing/Duration: week(s) (2), intermittent, worse Activities at Onset: rest Quality: sharpness Abdominal Pain Onset Location: generalized abdomen Pain Radiation: no radiation Severity of Pain-Max: moderate Severity of Pain-Current: mild Modifying Factors: Worsens With: movement, palpation Associated Symptoms: diarrhea - Review of Systems Constitutional: No Fever, No Chills Eyes: No Symptoms Ears, Nose, & Throat: No Symptoms Respiratory: No Cough, No Short Of Breath Cardiac: No Chest Pain, No Edema, No Syncope Abdominal/Gastrointestinal: Abdominal Pain, Diarrhea, No Nausea, No Vomiting Genitourinary Symptoms: No Dysuria Musculoskeletal: No Back Pain, No Neck Pain Skin: No Rash Neurological: No Dizziness, No Focal Weakness, No Sensory Changes Psychological: No Symptoms Endocrine: No Symptoms Hematologic/Lymphatic: No Symptoms Immunological/Allergic: No Symptoms Medications & Allergies Home Medications: Home Medication List Allopurinol 300 mg [Zyloprim 300 mg] 300 mg PO DAILY 11/30/16 [History Confirmed 05/02/22] Apixaban [Eliquis] 5 mg PO DAILY 11/30/16 [History Confirmed 05/02/22] Levothyroxine Sodium [Synthroid] 200 mcg PO DAILY 11/30/16 [History Confirmed 05/02/22] Magnesium Oxide 400 mg [Mag-Ox 400] 400 mg PO BID 11/30/16 [History Confirmed 05/02/22] Vitamin B Complex [Super B-50 Complex] 1 cap PO DAILY 05/21/17 [History Confirmed 05/02/22] Metformin HCl 500 mg PO BID 04/24/18 [History Confirmed 05/02/22] Metoprolol Succinate 50 mg PO DAILY 09/05/20 [History Confirmed 05/02/22] Pantoprazole Sodium [Protonix] 40 mg PO DAILY 08/19/21 [History Confirmed 05/02/22] Acetaminophen/Diphenhydramine [Tylenol Pm Exstr 500-25Mg Cplt] 1 tab PO HS 09/18/21 [History Confirmed 05/02/22] Albuterol Sulfate [Proair Hfa] 2 puff IH Q6H PRN 09/18/21 [History Confirmed 05/02/22] Amlodipine Besylate 2.5 mg PO DAILY 09/18/21 [History Confirmed 05/02/22] Furosemide 40 mg [Lasix 40 MG] 40 mg PO BID 09/18/21 [History Confirmed 05/02/22] Hydrocodone/APAP 5-325 Tab^^^ [[place] 5-325 Tablet^^^] 10 mg PO Q6H 09/18/21 [History Confirmed 05/02/22] Ascorbic Acid 500 mg [Vitamin C 500 MG] 500 mg PO DAILY 04/19/22 [History Confirmed 05/02/22] Diphenhydramine HCl [Benadryl Allergy] 50 mg PO DAILY 04/19/22 [History Confirm ed 05/02/22] Potassium Chloride 10 meq PO DAILY 04/19/22 [History Confirmed 05/02/22] Tamsulosin HCl 0.4 mg [Flomax 0.4 MG] 0.4 mg PO DAILY 04/19/22 [History Confirmed 05/02/22] Zinc 50 mg PO DAILY 04/19/22 [History Confirmed 05/02/22] Levothyroxine Sodium 25 Mcg [Synthroid 25 Mcg] 25 mcg PO DAILY 05/02/22 [History Confirmed 05/02/22] Allergies/Adverse Reactions: Allergies Allergy/AdvReac Type Severity Reaction Status Date / Time ofloxacin [From Floxin] Allergy Verified 05/01/22 21:54 Sulfa (Sulfonamide Allergy Verified 05/01/22 21:54 Antibiotics) [Sulfa(Sulfonamide Antibiotics)] - Past Medical History Past Medical History: Yes Neurological History: Peripheral Neuropathy ENT History: No Pertinent History Cardiac History: Hypertension Respiratory History: COPD Endocrine Medical History: Diabetes Type II, Hypothyroidism Musculoskelatal History: Arthritis GI Medical History: Diverticulitis, Diverticulosis, Hemorrhoids, Hernia History: Renal Disease Pyscho-Social History: No Pertinent History Reproductive Disorders: No Pertinent History Comment: PE, ARRYTHMIA, RENAL DZ, DDD, RA, OA, MYELODSYPLASTIC SYNDROME. PSH: CARDIAC CATH, HYSTERECTOMY, LUMPECTOMY, BASAL AND SQUAMOUS CELL CA. - Female History Are you now?: No - Past Surgical History Past Surgical History: Yes Neuro Surgical History: No Pertinent History Cardiac History: Cardiac Catheterization Respiratory Surgery: No Pertinent History GI Surgical History: No Pertinent History Genitourinary Surgical Hx: No Pertinent History Musculskeletal Surgical Hx: No Pertinent History Female Surgical History: Hysterectomy, Lumpectomy Other Surgical History: breast tumor removed, tumor removed from back benign, 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, cauterization due to intestinal bleed - Social History Smoking Status: Never smoker Exposure to second hand smoke: No Alcohol: None Drug Use: none Significant Family History: no pertinent family hx - Physical Exam Vital Signs: Vital Signs - 24 hr Temp Pulse Resp BP Pulse Ox 05/03/22 04:00 98.7 F 66 19 115/51 95 05/03/22 00:00 98.7 F 70 17 111/56 96 05/02/22 19:50 98.6 F 62 18 140/63 95 05/02/22 19:20 72 16 92 L 05/02/22 16:00 98.6 F 69 16 113/52 95 05/02/22 12:00 98.1 F 77 17 130/62 91 L 05/02/22 08:00 98.6 F 78 18 135/58 92 L General Appearance: no apparent distress, alert Neurologic Exam: alert, oriented x 3, cooperative, normal mood/affect, nml cerebellar function, nml station & gait, sensation nml, No motor deficits Eye Exam: PERRL/EOMI, eyes nml inspection Ears, Nose, Throat Exam: normal ENT inspection, TMs normal, pharynx normal, noé st mucous membranes Neck Exam: normal inspection, non-tender, supple, full range of motion Respiratory Exam: diminished breath sounds, No respiratory distress Cardiovascular Exam: regular rate/rhythm, normal heart sounds, normal peripheral pulses Gastrointestinal/Abdomen Exam: soft, normal bowel sounds, No tenderness, No distention, No mass Back Exam: normal inspection, normal range of motion, No CVA tenderness, No vertebral tenderness Extremity Exam: normal inspection, normal range of motion, pelvis stable Skin Exam: normal color, warm, dry, No rash Wound Assessment: Skin/Wound Assessment Wound/Incision Assessment Start: 05/02/22 03:49 Text: Status: Active Freq: Q6H Protocol: Document 05/03/22 01:57 KX (Rec: 05/03/22 01:57 KX [id number]) Wound/Incision Assessment Coccyx Wound Assessment Shift Assessment Wound Type Pressure Ulcer Wound Stage Stage II Drainage Amount None Length (cm) (cm) 2 Width (cm) (cm) 1 Depth (cm) (cm) 0.5 Comment barrier cream applied Wound Photo Photo Taken Yes Lymphatic Exam: No adenopathy Results - Labs Lab/Micro Results: Lab Results-Last 24 Hours 05/02/22 05/02/22 05/02/22 Range/Units 07:56 11:09 16:18 POC Glucometer 94 120 H 124 H (74 to 106) mg/dL 05/02/22 Range/Units 20:33 POC Glucometer 135 H (74 to 106) mg/dL Accuchecks Date 05/02/22 Date 05/02/22 Date 05/02/22 Date 05/02/22 Time 21:00 - Radiology Impressions Radiology Exams & Impressions: Radiology Procedures Category Date Time Status ABDOMEN AND PELVIS W/0 CONTRAS [CT] Stat Exams 05/01/22 23:06 Completed Assessment/Plan (1) Clostridium difficile colitis Current Visit: Yes Status: Acute Assessment & Plan: Laboratory Results 05/02/22 05/02/22 05/02/22 Range/Units 20:33 16:18 11:09 WBC (4.0-10.5) x10^3/uL RBC (4.1-5.4) x10^6/uL Hgb (12.0-16.0) g/dL Hct (35-47) % MCV (78-100) fL MCH (26-32) pg MCHC (32-36) g/dL RDW (11.5-14.0) % Plt Count (150-450) x10^3/uL MPV (7.5-11.0) fL Gran % (36.0-66.0) % Immature Gran % (Auto) (0.00-0.4) % Nucleat RBC Rel Count (0.00-0.1) % Eos # (Auto) (0-0.5) x10^3/uL Immature Gran # (Auto) (0.00-0.03) x10^3u/L Absolute Lymphs (auto) (1.0-4.6) x10^3/uL Absolute Monos (auto) (0.0-1.3) x10^3/uL Absolute Nucleated RBC (0.00-0.01) x10^3u/L Lymphocytes % (24.0-44.0) % Monocytes % (0.0-12.0) % Eosinophils % (0.00-5.0) % Basophils % (0.0-0.4) % Absolute Granulocytes (1.4-6.9) x10^3/uL Basophils # (0-0.4) x10^3/uL Sodium (137-145) mmol/L Potassium (3.5-5.1) mmol/L Chloride (98-107) mmol/L Carbon Dioxide (22-30) mmol/L Anion Gap (5-15) MEQ/L BUN (7-17) mg/dL Creatinine (0.52-1.04) mg/dL Estimated GFR ML/MIN Glucose (74-106) mg/dL POC Glucometer 135 H 124 H 120 H (74 to 106) mg/dL Lactic Acid (0.4-2.0) Calcium (8.4-10.2) mg/dL Total Bilirubin (0.2-1.3) mg/dL AST (14-36) U/L ALT (0-35) U/L Alkaline Phosphatase (38-126) U/L Serum Total Protein (6.3-8.2) g/dL Albumin (3.5-5.0) g/dL Prealbumin (17.6-36.0) mg/dL Lipase (23-300) U/L Urinalys Dipstick Clnc Urine Color (YELLOW) Urine Appearance (CLEAR) Urine pH (5-6) Ur Specific [place] (1.005-1.025) POC Urine Protein Conf (Negative) Urine Ketones (NEGATIVE) Urine Nitrite (NEGATIVE) Urine Bilirubin (NEGATIVE) Urine Urobilinogen (0-1) mg/dL Urine Leukocytes (NEGATIVE) Urine WBC (Auto) (0-5) /HPF Urine RBC (Auto) (0-2) /HPF U Hyaline Cast (Auto) (0-2) /LPF U Epithel Cells (Auto) (FEW) /HPF Urine Bacteria (Auto) (NEGATIVE) /HPF Urine RBC (0-5) Quentin/ul Ur Culture Indicated? Urine Glucose (NEGATIVE) mg/dL Influenza Type A Ag (NEGATIVE) Influenza Type B Ag (NEGATIVE) RSV (PCR) (Negative) SARS-CoV-2 (PCR) (NEGATIVE) Slides for Path Review 05/02/22 05/02/22 05/02/22 Range/Units 07:56 04:35 04:35 WBC 13.2 H (4.0-10.5) x10^3/uL RBC 3.57 L (4.1-5.4) x10^6/uL Hgb 10.8 L (12.0-16.0) g/dL Hct 33.2 L (35-47) % MCV 93.0 (78-100) fL MCH 30.3 (26-32) pg MCHC 32.5 (32-36) g/dL RDW 15.0 H (11.5-14.0) % Plt Count 193 (150-450) x10^3/uL MPV 9.8 (7.5-11.0) fL Gran % (36.0-66.0) % Immature Gran % (Auto) (0.00-0.4) % Nucleat RBC Rel Count (0.00-0.1) % Eos # (Auto) (0-0.5) x10^3/uL Immature Gran # (Auto) (0.00-0.03) x10^3u/L Absolute Lymphs (auto) (1.0-4.6) x10^3/uL Absolute Monos (auto) (0.0-1.3) x10^3/uL Absolute Nucleated RBC (0.00-0.01) x10^3u/L Lymphocytes % (24.0-44.0) % Monocytes % (0.0-12.0) % Eosinophils % (0.00-5.0) % Basophils % (0.0-0.4) % Absolute Granulocytes (1.4-6.9) x10^3/uL Basophils # (0-0.4) x10^3/uL Sodium 137 (137-145) mmol/L Potassium 4.6 (3.5-5.1) mmol/L Chloride 104 (98-107) mmol/L Carbon Dioxide 28 (22-30) mmol/L Anion Gap 9.6 (5-15) MEQ/L BUN 27 H (7-17) mg/dL Creatinine 1.45 H (0.52-1.04) mg/dL Estimated GFR 36.7 ML/MIN Glucose 103 (74-106) mg/dL POC Glucometer 94 (74 to 106) mg/dL Lactic Acid (0.4-2.0) Calcium 9.3 (8.4-10.2) mg/dL Total Bilirubin (0.2-1.3) mg/dL AST (14-36) U/L ALT (0-35) U/L Alkaline Phosphatase (38-126) U/L Serum Total Protein (6.3-8.2) g/dL Albumin (3.5-5.0) g/dL Prealbumin 20.40 (17.6-36.0) mg/dL Lipase (23-300) U/L Urinalys Dipstick Clnc Urine Color (YELLOW) Urine Appearance (CLEAR) Urine pH (5-6) Ur Specific [place] (1.005-1.025) POC Urine Protein Conf (Negative) Urine Ketones (NEGATIVE) Urine Nitrite (NEGATIVE) Urine Bilirubin (NEGATIVE) Urine Urobilinogen (0-1) mg/dL Urine Leukocytes (NEGATIVE) Urine WBC (Auto) (0-5) /HPF Urine RBC (Auto) (0-2) /HPF U Hyaline Cast (Auto) (0-2) /LPF U Epithel Cells (Auto) (FEW) /HPF Urine Bacteria (Auto) (NEGATIVE) /HPF Urine RBC (0-5) Quentin/ul Ur Culture Indicated? Urine Glucose (NEGATIVE) mg/dL Influenza Type A Ag (NEGATIVE) Influenza Type B Ag (NEGATIVE) RSV (PCR) (Negative) SARS-CoV-2 (PCR) (NEGATIVE) Slides for Path Review 05/02/22 05/02/22 05/01/22 Range/Units 01:34 00:16 23:00 WBC (4.0-10.5) x10^3/uL RBC (4.1-5.4) x10^6/uL Hgb (12.0-16.0) g/dL Hct (35-47) % MCV (78-100) fL MCH (26-32) pg MCHC (32-36) g/dL RDW (11.5-14.0) % Plt Count (150-450) x10^3/uL MPV (7.5-11.0) fL Gran % (36.0-66.0) % Immature Gran % (Auto) (0.00-0.4) % Nucleat RBC Rel Count (0.00-0.1) % Eos # (Auto) (0-0.5) x10^3/uL Immature Gran # (Auto) (0.00-0.03) x10^3u/L Absolute Lymphs (auto) (1.0-4.6) x10^3/uL Absolute Monos (auto) (0.0-1.3) x10^3/uL Absolute Nucleated RBC (0.00-0.01) x10^3u/L Lymphocytes % (24.0-44.0) % Monocytes % (0.0-12.0) % Eosinophils % (0.00-5.0) % Basophils % (0.0-0.4) % Absolute Granulocytes (1.4-6.9) x10^3/uL Basophils # (0-0.4) x10^3/uL Sodium 135 L (137-145) mmol/L Potassium 4.5 (3.5-5.1) mmol/L Chloride 101 (98-107) mmol/L Carbon Dioxide 27 (22-30) mmol/L Anion Gap 10.8 (5-15) MEQ/L BUN 29 H (7-17) mg/dL Creatinine 1.54 H (0.52-1.04) mg/dL Estimated GFR 34.3 ML/MIN Glucose 111 H (74-106) mg/dL POC Glucometer (74 to 106) mg/dL Lactic Acid (0.4-2.0) Calcium 9.5 (8.4-10.2) mg/dL Total Bilirubin 0.50 (0.2-1.3) mg/dL AST 21 (14-36) U/L ALT 9 (0-35) U/L Alkaline Phosphatase 116 (38-126) U/L Serum Total Protein 6.7 (6.3-8.2) g/dL Albumin 3.4 L (3.5-5.0) g/dL Prealbumin (17.6-36.0) mg/dL Lipase 67 (23-300) U/L Urinalys Dipstick Clnc MAIN LAB Urine Color YELLOW (YELLOW) Urine Appearance CLEAR (CLEAR) Urine pH 5.5 (5-6) Ur Specific [place] 1.010 (1.005-1.025) POC Urine Protein Conf NEGATIVE (Negative) Urine Ketones NEGATIVE (NEGATIVE) Urine Nitrite NEGATIVE (NEGATIVE) Urine Bilirubin NEGATIVE (NEGATIVE) Urine Urobilinogen 0.2 (0-1) mg/dL Urine Leukocytes MODERATE (NEGATIVE) Urine WBC (Auto) >100 (0-5) /HPF Urine RBC (Auto) 3-5 (0-2) /HPF U Hyaline Cast (Auto) 3-5 (0-2) /LPF U Epithel Cells (Auto) NONE (FEW) /HPF Urine Bacteria (Auto) MANY (NEGATIVE) /HPF Urine RBC TRACE-INTACT (0-5) Quentin/ul Ur Culture Indicated? YES Urine Glucose NEGATIVE (NEGATIVE) mg/dL Influenza Type A Ag NEGATIVE (NEGATIVE) Influenza Type B Ag NEGATIVE (NEGATIVE) RSV (PCR) NEGATIVE (Negative) SARS-CoV-2 (PCR) NEGATIVE (NEGATIVE) Slides for Path Review 05/01/22 05/01/22 Range/Units 23:00 22:55 WBC 15.7 H (4.0-10.5) x10^3/uL RBC 3.71 L (4.1-5.4) x10^6/uL Hgb 11.1 L (12.0-16.0) g/dL Hct 35.2 (35-47) % MCV 94.9 (78-100) fL MCH 29.9 (26-32) pg MCHC 31.5 L (32-36) g/dL RDW 14.8 H (11.5-14.0) % Plt Count 200 (150-450) x10^3/uL MPV 9.8 (7.5-11.0) fL Gran % 42.0 (36.0-66.0) % Immature Gran % (Auto) 0.5 H (0.00-0.4) % Nucleat RBC Rel Count 0.0 (0.00-0.1) % Eos # (Auto) 3.37 H (0-0.5) x10^3/uL Immature Gran # (Auto) 0.08 H (0.00-0.03) x10^3u/L Absolute Lymphs (auto) 4.74 H (1.0-4.6) x10^3/uL Absolute Monos (auto) 0.82 (0.0-1.3) x10^3/uL Absolute Nucleated RBC 0.00 (0.00-0.01) x10^3u/L Lymphocytes % 30.2 (24.0-44.0) % Monocytes % 5.2 (0.0-12.0) % Eosinophils % 21.5 H (0.00-5.0) % Basophils % 0.6 (0.0-0.4) % Absolute Granulocytes 6.58 (1.4-6.9) x10^3/uL Basophils # 0.10 (0-0.4) x10^3/uL Sodium (137-145) mmol/L Potassium (3.5-5.1) mmol/L Chloride (98-107) mmol/L Carbon Dioxide (22-30) mmol/L Anion Gap (5-15) MEQ/L BUN (7-17) mg/dL Creatinine (0.52-1.04) mg/dL Estimated GFR ML/MIN Glucose (74-106) mg/dL POC Glucometer (74 to 106) mg/dL Lactic Acid 1.0 (0.4-2.0) Calcium (8.4-10.2) mg/dL Total Bilirubin (0.2-1.3) mg/dL AST (14-36) U/L ALT (0-35) U/L Alkaline Phosphatase (38-126) U/L Serum Total Protein (6.3-8.2) g/dL Albumin (3.5-5.0) g/dL Prealbumin (17.6-36.0) mg/dL Lipase (23-300) U/L Urinalys Dipstick Clnc Urine Color (YELLOW) Urine Appearance (CLEAR) Urine pH (5-6) Ur Specific [place] (1.005-1.025) POC Urine Protein Conf (Negative) Urine Ketones (NEGATIVE) Urine Nitrite (NEGATIVE) Urine Bilirubin (NEGATIVE) Urine Urobilinogen (0-1) mg/dL Urine Leukocytes (NEGATIVE) Urine WBC (Auto) (0-5) /HPF Urine RBC (Auto) (0-2) /HPF U Hyaline Cast (Auto) (0-2) /LPF U Epithel Cells (Auto) (FEW) /HPF Urine Bacteria (Auto) (NEGATIVE) /HPF Urine RBC (0-5) Quentin/ul Ur Culture Indicated? Urine Glucose (NEGATIVE) mg/dL Influenza Type A Ag (NEGATIVE) Influenza Type B Ag (NEGATIVE) RSV (PCR) (Negative) SARS-CoV-2 (PCR) (NEGATIVE) Slides for Path Review YES Medication Report Acetaminophen (Acetaminophen 500 Mg Tablet) 500 mg PO HS NKECHI Stop: 06/01/22 21:59 Last Admin: 05/02/22 22:20 Dose: 500 mg Documented by: GREG [facility] PA[facility] Document 05/02/22 22:20 KX (Rec: 05/02/22 22:21 KX [id number]) Reassesment Comment given with benadryl to make tylenol pm Re-Assess: Pain Reassessment Document 05/02/22 22:50 KX (Rec: 05/03/22 00:58 KX [id number]) Pain Description Comment No c/o pain, given with benadryl to equal tylenol pm. Hydrocodone Bitart/Acetaminophen (Hydrocodone/Acetamin 10-325 Mg Tablet) 1 tablet PO Q6HT NKECHI Stop: 05/07/22 12:15 Last Admin: 05/03/22 07:22 Dose: Not Given Documented by: GREG Non-Admin Reason: Patient sleepingh [facility] PAIN Document 05/03/22 07:22 KX (Rec: 05/03/22 07:22 KX [id number]) Reassesment Comment sleeping Albuterol Sulfate (Albuterol Common Canister Inhaler) 2 puff IH Q4H PRN PRN PRN Reason: SHORTNESS OF BREATH/WHEEZING Stop: 06/01/22 04:16 Last Admin: 05/02/22 19:21 Dose: 2 puff Documented by: TOSHIA Albuteral MDI Document 05/02/22 19:21 JS (Rec: 05/02/22 19:21 JS [id number]) MDI MDI Initial MDI Puffs 2 Puffs Spacer Used Yes Supplies Spacer Yes Allopurinol (Allopurinol 300 Mg Tablet) 300 mg PO DAILY NKECHI Stop: 06/01/22 11:59 Last Admin: 05/02/22 12:20 Dose: 300 mg Documented by: KATHERINE Amlodipine Besylate (Amlodipine Besylate 5 Mg Tablet) 2.5 mg PO DAILY NKECHI Stop: 06/01/22 11:59 Last Admin: 05/02/22 12:21 Dose: 2.5 mg Documented by: KATHERINE Apixaban (Apixaban 2.5 Mg Tablet) 5 mg PO DAILY NKECHI Stop: 06/01/22 11:59 Last Admin: 05/02/22 12:20 Dose: 5 mg Documented by: KATEHRINE Ascorbic Acid (Ascorbic Acid 500 Mg Tablet) 500 mg PO DAILY NKECHI Stop: 06/01/22 11:59 Last Admin: 05/02/22 12:20 Dose: 500 mg Documented by: KATHERINE Diphenhydramine HCl (Diphenhydramine Hcl 25 Mg Capsule) 50 mg PO DAILY NKECHI Stop: 06/01/22 11:59 Last Admin: 05/02/22 12:19 Dose: 50 mg Documented by: KATHERINE Diphenhydramine HCl (Diphenhydramine Hcl 25 Mg Capsule) 25 mg PO HS NKECHI Stop: 06/01/22 21:59 Last Admin: 05/02/22 22:22 Dose: 25 mg Documented by: GREG Furosemide (Furosemide 40 Mg Tablet) 40 mg PO BID DIURETIC NKECHI Stop: 06/01/22 11:59 Last Admin: 05/02/22 18:08 Dose: 40 mg Documented by: CARLITO Sodium Chloride (Sodium Chloride 0.9% 1000 Ml) 1,000 mls @ 100 mls/hr IV .Q10H NKECHI Stop: 06/01/22 03:04 Last Admin: 05/02/22 14:06 Dose: 100 mls/hr Documented by: CARLITO Infusion/Titration Document 05/02/22 14:06 AR (Rec: 05/02/22 14:06 AR [id number]) Dosing & Rate IV Rate 100 Increase/Decrease Started/Running Cumulative Dose Not Applicable IV Intake Container Volume 1,000 Cumulative Intake (Rx) 993 Volume Adjustment/Waste 0 Levothyroxine Sodium (Levothyroxine Sodium 25 Mcg Tablet) 25 mcg PO DAILY NKECHI Stop: 06/01/22 11:59 Last Admin: 05/02/22 12:20 Dose: 25 mcg Documented by: KATHERINE Levothyroxine Sodium (Levothyroxine Sodium 100 Mcg Tablet) 200 mcg PO DAILY NKECHI Stop: 06/01/22 11:59 Last Admin: 05/02/22 12:21 Dose: 200 mcg Documented by: KATHERINE Magnesium Oxide (Magnesium Oxide 400 Mg Tablet) 400 mg PO BID NKECHI Stop: 06/01/22 11:59 Last Admin: 05/02/22 22:22 Dose: 400 mg Documented by: GREG Metformin HCl (Metformin Hcl 500 Mg Tablet) 500 mg PO BIDWM NKECHI Stop: 06/01/22 11:59 Last Admin: 05/02/22 18:08 Dose: 500 mg Documented by: CARLITO Metoprolol Succinate (Metoprolol Succinate 50 Mg Tablet.Sa) 50 mg PO DAILY NKECHI Stop: 06/01/22 11:59 Last Admin: 05/02/22 12:20 Dose: 50 mg Documented by: KATHERINE Multivitamins (Vitamin B Complex With Vit. C Tablet) 1 tab PO DAILY NKECHI Stop: 06/01/22 11:59 Last Admin: 05/02/22 12:30 Dose: 1 tab Documented by: CARLITO Potassium Chloride (Potassium Chloride Tab 10 Meq Tab) 10 meq PO DAILY NKECHI Stop: 06/01/22 11:59 Last Admin: 05/02/22 12:20 Dose: 10 meq Documented by: KATHERINE Tamsulosin HCl (Tamsulosin Hcl 0.4 Mg Cap) 0.4 mg PO DAILY NKECHI Stop: 06/01/22 11:59 Last Admin: 05/02/22 12:20 Dose: 0.4 mg Documented by: KATHERINE Vancomycin HCl (Vancomycin Hcl 125 Mg Capsule) 125 mg PO QID NKECHI Stop: 06/01/22 09:59 Last Admin: 05/02/22 22:22 Dose: 125 mg Documented by: GREG Zinc Gluconate (Zinc Gluconate 50 Mg Tablet) 50 mg PO DAILY NKECHI Stop: 06/01/22 11:59 Last Admin: 05/02/22 12:30 Dose: 50 mg Documented by: CARLITO Discontinued Medications Hydrocodone Bitart/Acetaminophen (Hydrocodone/Apap 5/325 Mg Tablet) 1 tab PO Q6HT NKECHI Stop: 05/07/22 11:59 Last Admin: 05/02/22 12:50 Dose: Not Given Documented by: CARLITO Non-Admin Reason: order changed Sodium Chloride (Sodium Chloride 0.9% 1000 Ml) 1,000 mls @ 499 mls/hr IV .Q2H1M STA Stop: 05/02/22 00:42 Last Infusion: 05/02/22 01:53 Dose: 499 mls/hr Documented by: KELLIE Infusion/Titration Document 05/02/22 01:53 (Rec: 05/02/22 01:54 [id number]) Dosing & Rate IV Rate 499 Increase/Decrease Infused Cumulative Dose Not Applicable IV Intake Container Volume 0 Infusion Intake 1,000 Cumulative Intake (Bag) 1,000 Cumulative Intake (Rx) 1,000 Volume Adjustment/Waste 0 Morphine Sulfate (Morphine Sulfate 4 Mg/Ml Injection) 4 mg IV STAT ONE Stop: 05/02/22 01:40 Last Admin: 05/02/22 01:47 Dose: 4 mg Documented by: APRIL Med Admininistration (IV,IVP) Document 05/02/22 01:47 MN (Rec: 05/02/22 01:47 MN [id number]) Type of Administration Initial IV Push No IV Push-Addtl Different Drug Yes MAR PAIN Document 05/02/22 01:47 MN (Rec: 05/02/22 01:47 MN [id number]) Reassesment Location Abdomen Pain Scale Used 0-10 Pain Scale Pain Intensity (0-10) 7 Ondansetron HCl (Ondansetron Hcl 4 Mg/2 Ml Vial) 4 mg IV STAT ONE Stop: 05/01/22 22:43 Last Admin: 05/01/22 23:36 Dose: 4 mg Documented by: MNEWTON Med Admininistration (IV,IVP) Document 05/01/22 23:36 MN (Rec: 05/01/22 23:36 MN [id number]) Type of Administration Initial IV Push Yes Pantoprazole Sodium (Pantoprazole 40 Mg Vial) 40 mg IV Q24H10 [facility] Stop: 06/01/22 09:59 Last Admin: 05/02/22 10:50 Dose: 40 mg Documented by: FANNY Vancomycin HCl (Vancomycin Hcl 125 Mg Capsule) 125 mg PO ONCE STA Stop: 05/02/22 00:14 Last Admin: 05/02/22 00:28 Dose: 125 mg Documented by: APRIL Medication Administration (PO Document 05/02/22 00:28 MN (Rec: 05/02/22 00:28 MN [id number]) Medication Administration PO Med Administration Yes Code(s): A04.72 - ENTEROCOLITIS D/T CLOSTRIDIUM DIFFICILE, NOT SPCF RECUR (2) CRF (chronic renal failure) Current Visit: Yes Status: Chronic Qualifiers: Chronic kidney disease stage: stage 3 (moderate) (3) CHF (congestive heart failure), NYHA class III Current Visit: Yes Status: Chronic Qualifiers: Congestive heart failure type: combined Congestive heart failure chronicity: chronic Qualified Code(s): I50.42 - Chronic combined systolic (congestive) and diastolic (congestive) heart failure Code(s): I50.9 - HEART FAILURE, UNSPECIFIED (4) S/P colostomy Current Visit: Yes Status: Chronic Code(s): Z93.3 - COLOSTOMY STATUS (5) Atrial fibrillation Current Visit: No Status: Chronic Qualifiers: Atrial fibrillation type: paroxysmal Code(s): I48.91 - UNSPECIFIED ATRIAL FIBRILLATION (6) Diabetic neuropathy associated with type 2 diabetes mellitus Current Visit: Yes Status: Chronic Qualifiers: Diabetes mellitus complication detail: diabetic polyneuropathy Code(s): E11.40 - TYPE 2 DIABETES MELLITUS WITH DIABETIC NEUROPATHY, UNSP
--- NOTE | 2022-05-03 07:35 | PCM.NOTE ---
Date and Time: 05/03/22732 Subjective Assessment: still some diarrhea - Review of Systems Constitutional: No Fever, No Chills Eyes: No Symptoms Ears, Nose, & Throat: No Symptoms Respiratory: No Cough, No Short Of Breath Cardiac: No Chest Pain, No Edema, No Syncope Abdominal/Gastrointestinal: No Abdominal Pain, No Nausea, No Vomiting, No Diarrhea Genitourinary Symptoms: No Dysuria Musculoskeletal: No Back Pain, No Neck Pain Skin: No Rash Neurological: No Dizziness, No Focal Weakness, No Sensory Changes Psychological: No Symptoms Endocrine: No Symptoms Hematologic/Lymphatic: No Symptoms Immunological/Allergic: No Symptoms Objective Exam General Appearance: no apparent distress, alert Neurologic Exam: alert, oriented x 3, cooperative, normal mood/affect, nml cerebellar function, sensation nml, No motor deficits Skin Exam: normal color, warm, dry Wound Assessment: Skin/Wound Assessment Wound/Incision Assessment Start: 05/02/22 03:49 Text: Status: Active Freq: Q6H Protocol: Document 05/03/22 01:57 KX (Rec: 05/03/22 01:57 KX [id number]) Wound/Incision Assessment Coccyx Wound Assessment Shift Assessment Wound Type Pressure Ulcer Wound Stage Stage II Drainage Amount None Length (cm) (cm) 2 Width (cm) (cm) 1 Depth (cm) (cm) 0.5 Comment barrier cream applied Wound Photo Photo Taken Yes Eye Exam: PERRL, EOMI, eyes nml inspection Ears, Nose, Throat Exam: normal ENT inspection, pharynx normal, moist mucous membranes Neck Exam: normal inspection, non-tender, supple, full range of motion Respiratory Exam: normal breath sounds, lungs clear, No respiratory distress Cardiovascular Exam: regular rate/rhythm, normal heart sounds Gastrointestinal/Abdomen Exam: soft, No tenderness, No mass Extremity Exam: normal inspection, normal range of motion Back Exam: normal inspection, normal range of motion, No CVA tenderness, No vertebral tenderness Pelvic Exam: deferred Rectal Exam: deferred OBJECTIVE DATA Vital Signs: Vital Signs - 24 hr Temp Pulse Resp BP Pulse Ox 05/03/22 04:00 98.7 F 66 19 115/51 95 05/03/22 00:00 98.7 F 70 17 111/56 96 05/02/22 19:50 98.6 F 62 18 140/63 95 05/02/22 19:20 72 16 92 L 05/02/22 16:00 98.6 F 69 16 113/52 95 05/02/22 12:00 98.1 F 77 17 130/62 91 L 05/02/22 08:00 98.6 F 78 18 135/58 92 L Pain Assessment - Last Documented Pain Intensity 0 Pain Scale Used FLACC Intake and Output: Intake & Output 04/30/22 05/01/22 05/02/22 05/03/22 11:59 11:59 11:59 11:59 Intake Total 180 400 Output Total 600 650 Balance -420 -250 Weight 71.2 kg Lab Results: Lab Results-Last 24 Hours 05/02/22 05/02/22 05/02/22 Range/Units 07:56 11:09 16:18 POC Glucometer 94 120 H 124 H (74 to 106) mg/dL 05/02/22 Range/Units 20:33 POC Glucometer 135 H (74 to 106) mg/dL Radiology Exams: Radiology Procedures Category Date Time Status ABDOMEN AND PELVIS W/0 CONTRAS [CT] Stat Exams 05/01/22 23:06 Completed Multi-Disciplinary Progress Notes: Multi-Disciplinary Progress Notes 05/02/22 10:38 Case Management Note by Gaby Ludwig PATIENT HAS [facility]. THEY WERE NOTIFIED PATIENT HERE OBS. THEY WILL NEED NOTIFIED AT TIME OF DC AT [phone]. THEY WILL NEED FAXED THE DC INSTRUCTIONS, DC MED LIST AND DC SUMMARY ( IF AVAILABLE) TO [phone] Initialized on 05/02/22 10:38 - END OF NOTE Assessment/Plan (1) Clostridium difficile colitis Current Visit: Yes Status: Acute Assessment & Plan: doing better, continue PO vancomycin. Plan to D/C home tommorow Code(s): A04.72 - ENTEROCOLITIS D/T CLOSTRIDIUM DIFFICILE, NOT SPCF RECUR (2) CRF (chronic renal failure) Current Visit: Yes Status: Chronic Qualifiers: Chronic kidney disease stage: stage 3 (moderate) (3) CHF (congestive heart failure), NYHA class III Current Visit: Yes Status: Chronic Qualifiers: Congestive heart failure type: combined Congestive heart failure chronicity: chronic Qualified Code(s): I50.42 - Chronic combined systolic (congestive) and diastolic (congestive) heart failure Code(s): I50.9 - HEART FAILURE, UNSPECIFIED (4) S/P colostomy Current Visit: Yes Status: Chronic Code(s): Z93.3 - COLOSTOMY STATUS (5) Atrial fibrillation Current Visit: No Status: Chronic Qualifiers: Atrial fibrillation type: paroxysmal Code(s): I48.91 - UNSPECIFIED ATRIAL FIBRILLATION (6) Diabetic neuropathy associated with type 2 diabetes mellitus Current Visit: Yes Status: Chronic Qualifiers: Diabetes mellitus complication detail: diabetic polyneuropathy Code(s): E11.40 - TYPE 2 DIABETES MELLITUS WITH DIABETIC NEUROPATHY, UNSP
[2022-05-03] MEDS: Glucophage 500 MG PO SCH ×2 (08:09→17:10)
[2022-05-03] MEDS ORDERED: LEVOTHYROXINE SODIUM 200 MCG PO SCH (10:00)
[2022-05-03] MEDS ORDERED: VITAMIN B COMPLEX PO SCH (10:00)
[2022-05-03] MEDS ORDERED: [UNRECOGNIZED DRUG - REMARK] PO SCH (10:00)
[2022-05-03] MEDS ORDERED: NON-FORMULARY ITEM (Zinc [Zinc] 50 MG Tablet) PO SCH (10:00)
[2022-05-03] MEDS ORDERED: Protonix 40MG Tablet PO SCH (10:00)
[2022-05-03] MEDS ORDERED: NON-FORMULARY ITEM (Metoprolol Succinate 25 MG Tab.Er.24h) PO SCH (10:00)
[2022-05-03] MEDS ORDERED: NON-FORMULARY ITEM (Amlodipine Besylate [Amlodipine Besylate] 2.5 MG Tablet) PO SCH (10:00)
[2022-05-03] MEDS: BENADRYL 25 MG CAPSULE PO SCH ×2 (10:20→21:10)
[2022-05-03] MEDS: SYNTHROID 100 MCG PO SCH (10:20)
[2022-05-03] MEDS: MAG-OX 400 PO SCH ×2 (10:20→21:09)
[2022-05-03] MEDS: Toprol Xl 50 MG PO SCH (10:21)
[2022-05-03] MEDS: Klor Con PO SCH (10:21)
[2022-05-03] MEDS: Lasix 40 MG PO SCH ×2 (10:21→17:10)
[2022-05-03] MEDS: SYNTHROID 25 MCG PO SCH (10:21)
[2022-05-03] MEDS: ELIQUIS 2.5 MG TABLET PO SCH (10:21)
[2022-05-03] MEDS: VANCOMYCIN HCL CAPSULE PO SCH ×4 (10:21→21:10)
[2022-05-03] MEDS: Vitamin C 500 MG PO SCH (10:21)
[2022-05-03] MEDS: Flomax 0.4 MG PO SCH (10:21)
[2022-05-03] MEDS: Zinc Gluconate 50 MG PO SCH (10:22)
[2022-05-03] MEDS: ZYLOPRIM 300 MG PO SCH (10:22)
[2022-05-03] MEDS: VITA-BEE WITH C PO SCH (10:22)
[2022-05-03] MEDS: NORVASC 5 MG PO SCH (10:23)
[2022-05-03] MEDS: VENTOLIN COMMON CANISTER IH PRN ×3 (11:23→19:09)
[2022-05-03] MEDS: TYLENOL EXTRA STRENGTH 500 MG PO SCH (21:10)
[2022-05-04] MEDS: HYDROCODONE-ACETAMIN 10-325 MG PO SCH ×2 (05:23→05:24)
[2022-05-04 06:08] LABS: Absolute Neutrophil Ct (ANC) 4.94 x10^3/uL (1.4-6.9); Basophil (Absolute #) 0.09 x10^3/uL (0-0.4); Eosinophil % 21.3 % (0.00-5.0); Eosinophil (Absolute #) 2.53 x10^3/uL (0-0.5); Hematocrit 31.1 % (35-47); Lymphocyte (Absolute #) 3.57 x10^3/uL (1.0-4.6); Mean Cell Volume 93.7 fL (78-100); Mean Corpuscular Hemoglobin 30.1 pg (26-32); Mean Corpuscular Hgb Concent. 32.2 g/dL (32-36); Mean Platelet Volume 9.4 fL (7.5-11.0); Monocyte (Absolute #) 0.71 x10^3/uL (0.0-1.3); Neutrophil % 41.5 % (36.0-66.0); Platelet Count 182 x10^3/uL (150-450); Red Blood Count 3.32 x10^6/uL (4.1-5.4); White Blood Count 11.9 x10^3/uL (4.0-10.5)
[2022-05-04 06:31] LABS: ALBUMIN 2.9 g/dL (3.5-5.0); ANION GAP 9.6 MEQ/L (5-15); BILIRUBIN,TOTAL 0.3 mg/dL (0.2-1.3); Creatinine 1 1.32 mg/dL (0.52-1.04); Total Protein 6.1 g/dL (6.3-8.2)
[2022-05-04] MEDS: VENTOLIN COMMON CANISTER IH PRN (07:46)
[2022-05-04] MEDS: Glucophage 500 MG PO SCH (07:46)
[2022-05-04 07:53] VITALS: BP 134/59; PULSE 62; O2SAT 96
--- NOTE | 2022-05-04 13:26 | PCM.DS ---
Discharge Summary Date of Admission: 05/02/22 02:55 Admitting Physician: TRINH MINAYA Primary Care Provider: TRINH MINAYA Allergies Allergies ofloxacin [From Floxin] Allergy (Verified 05/01/22 21:54) Sulfa (Sulfonamide Antibiotics) [Sulfa(Sulfonamide Antibiotics)] Allergy (Verified 05/01/22 21:54) Hospital Summary - Hospital Course Hospital Course: Chief Complaint Diagnosis diarrhea, abdominal pain for 2 days Allergies Allergy/AdvReac Type Severity Reaction Status Date / Time ofloxacin [From Floxin] Allergy Verified 05/01/22 21:54 Sulfa (Sulfonamide Allergy Verified 05/01/22 21:54 Antibiotics) [Sulfa(Sulfonamide Antibiotics)] Vital Signs (Last 24 hours) Temp Pulse Resp BP Pulse Ox 05/04/22 07:52 98.3 F 62 18 134/59 96 05/04/22 07:51 63 16 98 05/04/22 03:39 98.0 F 58 L 16 116/50 96 05/03/22 19:31 98.4 F 82 18 129/60 98 05/03/22 19:05 83 16 97 05/03/22 16:00 97.9 F 75 16 113/55 97 Home Medications Medication Instructions Recorded Confirmed Last Taken Type Levothyroxine Sodium 25 Mcg 25 mcg PO DAILY 05/02/22 05/02/22 05/01/22 08:00 History [Synthroid 25 Mcg] Vancomycin HCl [Vancomycin HCl 125 mg PO QID 8 Days #32 cap 05/04/22 Unknown Rx Capsule] Current Medications Discontinued Medications Generic Name Dose Route Start Last Admin Trade Name Ximena PRN Reason Stop Dose Admin Acetaminophen 650 mg 05/02/22 03:05 Acetaminophen 325 Mg Tablet PO 06/01/22 03:04 Q4H PRN PRN PAIN AND/OR FEVER Acetaminophen 500 mg 05/02/22 22:00 05/03/22 21:10 Acetaminophen 500 Mg Tablet PO 06/01/22 21:59 500 mg HS NKECHI Administration Hydrocodone Bitart/Acetaminophen 1 tab 05/02/22 12:00 05/02/22 12:50 Hydrocodone/Apap 5/325 Mg Tablet PO 05/07/22 11:59 Not Given Q6HT NKECHI Hydrocodone Bitart/Acetaminophen 1 tablet 05/02/22 12:09 Hydrocodone/Acetamin 10-325 Mg Tablet PO 05/07/22 12:08 Q6H PRN PRN PAIN Hydrocodone Bitart/Acetaminophen 1 tablet 05/02/22 12:16 05/04/22 05:24 Hydrocodone/Acetamin 10-325 Mg Tablet PO 05/07/22 12:15 1 tablet Q6HT NKECHI Administration Albuterol Sulfate 2 puff 05/02/22 04:17 05/04/22 07:46 Albuterol Common Canister Inhaler 06/01/22 04:16 2 puff Q4H PRN PRN Administration SHORTNESS OF BREATH/WHEEZING Albuterol/Ipratropium 3 ml 05/02/22 03:05 Ipratropium/Albuterol Sulfate 3 Ml Ampul.Neb 06/01/22 03:04 Q4HPRN PRN SHORTNESS OF BREATH/WHEEZING Allopurinol 300 mg 05/02/22 12:00 05/03/22 10:22 Allopurinol 300 Mg Tablet PO 06/01/22 11:59 300 mg DAILY NKECHI Administration Amlodipine Besylate 2.5 mg 05/02/22 12:00 05/03/22 10:23 Amlodipine Besylate 5 Mg Tablet PO 06/01/22 11:59 2.5 mg DAILY NKECHI Administration Apixaban 5 mg 05/02/22 12:00 05/03/22 10:21 Apixaban 2.5 Mg Tablet PO 06/01/22 11:59 5 mg DAILY NKECHI Administration Ascorbic Acid 500 mg 05/02/22 12:00 05/03/22 10:21 Ascorbic Acid 500 Mg Tablet PO 06/01/22 11:59 500 mg DAILY NKECHI Administration Diphenhydramine HCl 50 mg 05/02/22 12:00 05/03/22 10:20 Diphenhydramine Hcl 25 Mg Capsule PO 06/01/22 11:59 50 mg DAILY NKECHI Administration Diphenhydramine HCl 25 mg 05/02/22 22:00 05/03/22 21:10 Diphenhydramine Hcl 25 Mg Capsule PO 06/01/22 21:59 25 mg HS NKECHI Administration Furosemide 40 mg 05/02/22 12:00 05/03/22 17:10 Furosemide 40 Mg Tablet PO 06/01/22 11:59 40 mg BID DIURETIC NKECHI Administration Sodium Chloride 1,000 mls @ 499 mls/hr 05/01/22 22:42 05/02/22 01:53 Sodium Chloride 0.9% 1000 Ml IV 05/02/22 00:42 Infused .Q2H1M STA Infusion Sodium Chloride Confirm 05/01/22 23:02 Sodium Chloride 0.9% 1000 Ml Administered 05/01/22 23:03 Dose 1,000 mls @ ud .ROUTE .STK-MED ONE Sodium Chloride 1,000 mls @ 100 mls/hr 05/02/22 03:05 05/02/22 14:06 Sodium Chloride 0.9% 1000 Ml IV 06/01/22 03:04 100 mls/hr .Q10H NKECHI Administration Insulin Human Lispro 0 unit 05/02/22 03:05 Insulin Lispro 1 Unit SQ 06/01/22 03:04 UD PRN HYPERGLYCEMIA Levothyroxine Sodium 25 mcg 05/02/22 12:00 05/03/22 10:21 Levothyroxine Sodium 25 Mcg Tablet PO 06/01/22 11:59 25 mcg DAILY NEKCHI Administration Levothyroxine Sodium 200 mcg 05/02/22 12:00 05/03/22 10:20 Levothyroxine Sodium 100 Mcg Tablet PO 06/01/22 11:59 200 mcg DAILY NKECHI Administration Magnesium Oxide 400 mg 05/02/22 12:00 05/03/22 21:09 Magnesium Oxide 400 Mg Tablet PO 06/01/22 11:59 400 mg BID NKECHI Administration Metformin HCl 500 mg 05/02/22 12:00 05/04/22 07:46 Metformin Hcl 500 Mg Tablet PO 06/01/22 11:59 500 mg BIDWM NKECHI Administration Metoprolol Succinate 50 mg 05/02/22 12:00 05/03/22 10:21 Metoprolol Succinate 50 Mg Tablet.Sa PO 06/01/22 11:59 50 mg DAILY NKECHI Administration Morphine Sulfate 4 mg 05/02/22 01:39 05/02/22 01:47 Morphine Sulfate 4 Mg/Ml Injection IV 05/02/22 01:40 4 mg STAT ONE Administration Morphine Sulfate Confirm 05/02/22 01:46 Morphine Sulfate 4 Mg/Ml Injection Administered 05/02/22 01:47 Dose 4 mg .ROUTE .STK-MED ONE Morphine Sulfate 2 mg 05/02/22 03:05 Morphine Sulfate 2 Mg/Ml Inj IV 05/07/22 03:04 Q4H PRN PRN PAIN Multivitamins 1 tab 05/02/22 12:00 05/03/22 10:22 Vitamin B Complex With Vit. C Tablet PO 06/01/22 11:59 1 tab DAILY NKECHI Administration Ondansetron HCl 4 mg 05/01/22 22:42 05/01/22 23:36 Ondansetron Hcl 4 Mg/2 Ml Vial IV 05/01/22 22:43 4 mg STAT ONE Administration Ondansetron HCl Confirm 05/01/22 23:02 Ondansetron Hcl 4 Mg/2 Ml Vial Administered 05/01/22 23:03 Dose 4 mg .ROUTE .STK-MED ONE Ondansetron HCl 4 mg 05/02/22 03:05 Ondansetron Hcl 4 Mg/2 Ml Vial IV 06/01/22 03:04 Q6H PRN PRN NAUSEA/VOMITING Pantoprazole Sodium 40 mg 05/02/22 10:00 05/02/22 10:50 Pantoprazole 40 Mg Vial IV 06/01/22 09:59 40 mg Q24H10 NKECHI Administration Pantoprazole Sodium 40 mg 05/03/22 10:00 05/03/22 10:21 Protonix (Pantoprazole) 40 Mg Tablet PO 06/02/22 09:59 40 mg DAILY NKECHI Administration Potassium Chloride 10 meq 05/02/22 12:00 05/03/22 10:21 Potassium Chloride Tab 10 Meq Tab PO 06/01/22 11:59 10 meq DAILY NKECHI Administration Tamsulosin HCl 0.4 mg 05/02/22 12:00 05/03/22 10:21 Tamsulosin Hcl 0.4 Mg Cap PO 06/01/22 11:59 0.4 mg DAILY NKECHI Administration Vancomycin HCl 125 mg 05/02/22 00:13 05/02/22 00:28 Vancomycin Hcl 125 Mg Capsule PO 05/02/22 00:14 125 mg ONCE STA Administration Vancomycin HCl 125 mg 05/02/22 10:00 05/03/22 21:10 Vancomycin Hcl 125 Mg Capsule PO 06/01/22 09:59 125 mg QID NKECHI Administration Zinc Gluconate 50 mg 05/02/22 12:00 05/03/22 10:22 Zinc Gluconate 50 Mg Tablet PO 06/01/22 11:59 50 mg DAILY NKECHI Administration Intake & Output (Last 24 hours) 06/2405/03/22 05/04/22 05/05/22 11:59 11:59 11:59 11:59 Intake Total 180 400 920 Output Total 600 7210 2870 Balance -319 -494 -412 Weight 71.2 kg 71.5 kg 73 kg Microbiology Results (Last 24 hours) 05/02/22 00:16 Clean Catch Midstream Urine Culture - Final <10K NORMAL SKIN DILSHAD PROBABLE SKIN CONTAMINANT Laboratory Results (Last 24 hours) 05/04/22 05/04/22 05/04/22 07:37 05:55 05:55 WBC 11.9 H RBC 3.32 L Hgb 10.0 L Hct 31.1 L MCV 93.7 MCH 30.1 MCHC 32.2 RDW 15.0 H Plt Count 182 MPV 9.4 Gran % 41.5 Immature Gran % (Auto) 0.4 Nucleat RBC Rel Count 0.0 Eos # (Auto) 2.53 H Immature Gran # (Auto) 0.05 H Absolute Lymphs (auto) 3.57 Absolute Monos (auto) 0.71 Absolute Nucleated RBC 0.00 Lymphocytes % 30.0 Monocytes % 6.0 Eosinophils % 21.3 H Basophils % 0.8 Absolute Granulocytes 4.94 Basophils # 0.09 Sodium 139 Potassium 4.0 Chloride 105 Carbon Dioxide 28 Anion Gap 9.6 BUN 22 H Creatinine 1.32 H Estimated GFR 41.0 Glucose 108 H POC Glucometer 110 H Calcium 9.0 Total Bilirubin 0.30 AST 20 ALT 9 Alkaline Phosphatase 110 Serum Total Protein 6.1 L Albumin 2.9 L 05/03/22 05/03/22 05/03/22 20:26 16:27 07:07 WBC RBC Hgb Hct MCV MCH MCHC RDW Plt Count MPV Gran % Immature Gran % (Auto) Nucleat RBC Rel Count Eos # (Auto) Immature Gran # (Auto) Absolute Lymphs (auto) Absolute Monos (auto) Absolute Nucleated RBC Lymphocytes % Monocytes % Eosinophils % Basophils % Absolute Granulocytes Basophils # Sodium Potassium Chloride Carbon Dioxide Anion Gap BUN Creatinine Estimated GFR Glucose POC Glucometer 143 H 162 H 104 Calcium Total Bilirubin AST ALT Alkaline Phosphatase Serum Total Protein Albumin Orders (Last 24 hours) Category Date Time Status Discharge Routine Discharge 05/04/22 Ordered CBC W DIFF AM.LAB Lab 05/04/22 05:55 Completed CMP AM.LAB Lab 05/04/22 05:55 Completed POCT GLUCOSE Stat Lab 05/03/22 16:27 Completed POCT GLUCOSE Stat Lab 05/03/22 20:26 Completed POCT GLUCOSE Stat Lab 05/04/22 07:37 Completed Patient Care Notes (Last 24 hours) 05/04/22 09:50 Nursing Note by Adrianna Crowder I faxed patients D/C paperwork to [facility] [phone] and called to let them know about d/c home. Initialized on 05/04/22 09:50 - END OF NOTE - Vitals & Intake/Output Vital Signs: Vital Signs Temperature 98.3 F 05/04/22 07:52 Pulse Rate 62 05/04/22 07:52 Respiratory Rate 18 05/04/22 07:52 Blood Pressure 134/59 05/04/22 07:52 O2 Sat by Pulse Oximetry 96 05/04/22 07:52 Intake & Output: Intake & Output 05/02/22 05/03/22 05/04/22 05/05/22 11:59 11:59 11:59 11:59 Intake Total 180 400 920 Output Total 600 1250 1750 Balance -420 -850 -660 Weight 71.2 kg 71.5 kg 73 kg - Lab Result Diagrams: 05/04/22 05:55 05/04/22 05:55 Lab Results-Last 24 Hrs: Lab Results-Last 24 Hours 05/03/22 05/03/22 05/03/22 Range/Units 07:07 16:27 20:26 WBC (4.0-10.5) x10^3/uL RBC (4.1-5.4) x10^6/uL Hgb (12.0-16.0) g/dL Hct (35-47) % MCV (78-100) fL MCH (26-32) pg MCHC (32-36) g/dL RDW (11.5-14.0) % Plt Count (150-450) x10^3/uL MPV (7.5-11.0) fL Gran % (36.0-66.0) % Immature Gran % (Auto) (0.00-0.4) % Nucleat RBC Rel Count (0.00-0.1) % Eos # (Auto) (0-0.5) x10^3/uL Immature Gran # (Auto) (0.00-0.03) x10^3u/L Absolute Lymphs (auto) (1.0-4.6) x10^3/uL Absolute Monos (auto) (0.0-1.3) x10^3/uL Absolute Nucleated RBC (0.00-0.01) x10^3u/L Lymphocytes % (24.0-44.0) % Monocytes % (0.0-12.0) % Eosinophils % (0.00-5.0) % Basophils % (0.0-0.4) % Absolute Granulocytes (1.4-6.9) x10^3/uL Basophils # (0-0.4) x10^3/uL Sodium (137-145) mmol/L Potassium (3.5-5.1) mmol/L Chloride (98-107) mmol/L Carbon Dioxide (22-30) mmol/L Anion Gap (5-15) MEQ/L BUN (7-17) mg/dL Creatinine (0.52-1.04) mg/dL Estimated GFR ML/MIN Glucose (74-106) mg/dL POC Glucometer 104 162 H 143 H (74 to 106) mg/dL Calcium (8.4-10.2) mg/dL Total Bilirubin (0.2-1.3) mg/dL AST (14-36) U/L ALT (0-35) U/L Alkaline Phosphatase (38-126) U/L Serum Total Protein (6.3-8.2) g/dL Albumin (3.5-5.0) g/dL 05/04/22 05/04/22 05/04/22 Range/Units 05:55 05:55 07:37 WBC 11.9 H (4.0-10.5) x10^3/uL RBC 3.32 L (4.1-5.4) x10^6/uL Hgb 10.0 L (12.0-16.0) g/dL Hct 31.1 L (35-47) % MCV 93.7 (78-100) fL MCH 30.1 (26-32) pg MCHC 32.2 (32-36) g/dL RDW 15.0 H (11.5-14.0) % Plt Count 182 (150-450) x10^3/uL MPV 9.4 (7.5-11.0) fL Gran % 41.5 (36.0-66.0) % Immature Gran % (Auto) 0.4 (0.00-0.4) % Nucleat RBC Rel Count 0.0 (0.00-0.1) % Eos # (Auto) 2.53 H (0-0.5) x10^3/uL Immature Gran # (Auto) 0.05 H (0.00-0.03) x10^3u/L Absolute Lymphs (auto) 3.57 (1.0-4.6) x10^3/uL Absolute Monos (auto) 0.71 (0.0-1.3) x10^3/uL Absolute Nucleated RBC 0.00 (0.00-0.01) x10^3u/L Lymphocytes % 30.0 (24.0-44.0) % Monocytes % 6.0 (0.0-12.0) % Eosinophils % 21.3 H (0.00-5.0) % Basophils % 0.8 (0.0-0.4) % Absolute Granulocytes 4.94 (1.4-6.9) x10^3/uL Basophils # 0.09 (0-0.4) x10^3/uL Sodium 139 (137-145) mmol/L Potassium 4.0 (3.5-5.1) mmol/L Chloride 105 (98-107) mmol/L Carbon Dioxide 28 (22-30) mmol/L Anion Gap 9.6 (5-15) MEQ/L BUN 22 H (7-17) mg/dL Creatinine 1.32 H (0.52-1.04) mg/dL Estimated GFR 41.0 ML/MIN Glucose 108 H (74-106) mg/dL POC Glucometer 110 H (74 to 106) mg/dL Calcium 9.0 (8.4-10.2) mg/dL Total Bilirubin 0.30 (0.2-1.3) mg/dL AST 20 (14-36) U/L ALT 9 (0-35) U/L Alkaline Phosphatase 110 (38-126) U/L Serum Total Protein 6.1 L (6.3-8.2) g/dL Albumin 2.9 L (3.5-5.0) g/dL Micro Results-Entire Visit: Microbiology 05/02/22 00:16 Urine Culture - Final Clean Catch Midstream <10K NORMAL SKIN DILSHAD PROBABLE SKIN CONTAMINANT Accuchecks Date 05/04/22 Date 05/03/22 Date 05/03/22 Time 07:37 Time 22:00 Time 16:32 - Procedures and Test Procedures and Tests throughout Hospitalization: Therapy Orders & Screens 05/02/22 04:19 Respiratory Therapy Assessment DAILY Comment: Diagnosis: C. difficile colitis Final Diagnosis/Problem List - Final Discharge Diagnosis/Problem (1) Clostridium difficile colitis Status: Resolved Code(s): A04.72 - ENTEROCOLITIS D/T CLOSTRIDIUM DIFFICILE, NOT SPCF RECUR (2) CRF (chronic renal failure) Status: Chronic (3) CHF (congestive heart failure), NYHA class III Status: Chronic Code(s): I50.9 - HEART FAILURE, UNSPECIFIED (4) S/P colostomy Status: Chronic Code(s): Z93.3 - COLOSTOMY STATUS (5) Atrial fibrillation Status: Chronic Code(s): I48.91 - UNSPECIFIED ATRIAL FIBRILLATION (6) Diabetic neuropathy associated with type 2 diabetes mellitus Status: Chronic Code(s): E11.40 - TYPE 2 DIABETES MELLITUS WITH DIABETIC NEUROPATHY, UNSP - Discharge Discharge Date: 05/04/22 Disposition: HOME HEALTH SERVICE Condition: Stable Prescriptions: New Vancomycin HCl [Vancomycin HCl Capsule] 125 mg PO QID 8 Days #32 cap Continue Magnesium Oxide 400 mg [Mag-Ox 400] 400 mg PO BID Allopurinol 300 mg [Zyloprim 300 mg] 300 mg PO DAILY Apixaban [Eliquis] 5 mg PO DAILY Levothyroxine Sodium [Synthroid] 200 mcg PO DAILY Vitamin B Complex [Super B-50 Complex] 1 cap PO DAILY Metformin HCl 500 mg PO BID Metoprolol Succinate 50 mg PO DAILY Pantoprazole Sodium [Protonix] 40 mg PO DAILY Albuterol Sulfate [Proair Hfa] 2 puff IH Q6H PRN PRN Reason: Shortness Of Breath/Wheezing Furosemide 40 mg [Lasix 40 MG] 40 mg PO BID Amlodipine Besylate 2.5 mg PO DAILY Hydrocodone/APAP 5-325 Tab^^^ [[place] 5-325 Tablet^^^] 10 mg PO Q6H Acetaminophen/Diphenhydramine [Tylenol Pm Exstr 500-25Mg Cplt] 1 tab PO HS Tamsulosin HCl 0.4 mg [Flomax 0.4 MG] 0.4 mg PO DAILY Zinc 50 mg PO DAILY Ascorbic Acid 500 mg [Vitamin C 500 MG] 500 mg PO DAILY Diphenhydramine HCl [Benadryl Allergy] 50 mg PO DAILY Potassium Chloride 10 meq PO DAILY Levothyroxine Sodium 25 Mcg [Synthroid 25 Mcg] 25 mcg PO DAILY Instructions: Clostridioides difficile Additional Instructions: Call tomorrow and schedule a follow-up appointment with your family doctor within a week. Follow up with: TRINH MINAYA MD [Primary Care Provider] - Forms: Discharge Instructions
== END 2022-05-04 09:30 | disposition home health service (06) ==
LOC: ED 21:36 → MED SURG 05-02 02:55
PROVIDERS: ADMIT General Practice; ATTEND General Practice
DX: A04.72 Enterocolitis due to Clostridium difficile, not specified as recurrent (principal); E11.22 Type 2 diabetes mellitus with diabetic chronic kidney disease; I13.0 Hypertensive heart and chronic kidney disease with heart failure and stage 1 through stage 4 chronic kidney disease, or unspecified chronic kidney disease; N18.9 Chronic kidney disease, unspecified; I50.9 Heart failure, unspecified; Z93.3 Colostomy status; I48.91 Unspecified atrial fibrillation; E11.40 Type 2 diabetes mellitus with diabetic neuropathy, unspecified; L89.152 Pressure ulcer of sacral region, stage 2; Z79.01 Long term (current) use of anticoagulants; Z79.899 Other long term (current) drug therapy; Z20.828 Contact with and (suspected) exposure to other viral communicable diseases; Z85.828 Personal history of other malignant neoplasm of skin
CPT/HCPCS: 0241U; 36000; 36415; 74176; 80048; 80053; 81015; 82947; 83036; 83605; 83690; 84134; 85025; 85027; 87086; 87493; 94640; 94760; 96360; 96361; 96374; 96375; 99285; G0378; J2270; J2405; A9270-GY

== ENCOUNTER 2022-08-14 09:54 | Observation (INO) | payer MEDICARE ==
[2022-08-14] MEDS ORDERED: solu-MEDROL 125 MG, Sterile H2O 10 ml 2 ML IV ONE ×2 (10:11)
[2022-08-14] MEDS ORDERED: DUONEB 0.5-3 MG/3 ml Neb IH ONE ×2 (10:13→11:15)
[2022-08-14 10:40] LABS: Absolute Neutrophil Ct (ANC) 9.42 x10^3/uL (1.4-6.9); Basophil (Absolute #) 0.09 x10^3/uL (0-0.4); Eosinophil % 6.3 % (0.00-5.0); Hematocrit 35.9 % (35-47); Hemoglobin 11.3 g/dL (12.0-16.0); Lymphocyte (Absolute #) 1.77 x10^3/uL (1.0-4.6); Lymphocytes % 13.9 % (24.0-44.0); Mean Cell Volume 93.5 fL (78-100); Mean Corpuscular Hemoglobin 29.4 pg (26-32); Mean Corpuscular Hgb Concent. 31.5 g/dL (32-36); Mean Platelet Volume 8.8 fL (7.5-11.0); Monocyte (Absolute #) 0.56 x10^3/uL (0.0-1.3); Monocytes % 4.4 % (0.0-12.0); Neutrophil % 74.1 % (36.0-66.0); Platelet Count 199 x10^3/uL (150-450); Red Blood Count 3.84 x10^6/uL (4.1-5.4); Red Cell Distribution Width 15.5 % (11.5-14.0); White Blood Count 12.7 x10^3/uL (4.0-10.5)
--- NOTE | 2022-08-14 10:58 | XRAY ---
Indication: Short of breath. Comparison: August 18, 2021 Portable chest remains inflated and clear with incidental right mid lung calcified granuloma. Heart not enlarged for AP portable technique. Bony thorax intact again with osteopenia, degenerative changes, and T12 kyphoplasty. Impression: Continued nonacute chest with chronic features.
[2022-08-14] MEDS ORDERED: Sterile H2O 10 ml IJ ONE (10:59)
[2022-08-14] MEDS ORDERED: solu-MEDROL ONE (11:00)
[2022-08-14 11:03] LABS: ALBUMIN 3.8 g/dL (3.5-5.0); BILIRUBIN,TOTAL 0.5 mg/dL (0.2-1.3); Calcium 9.4 mg/dL (8.4-10.2); Creatinine 1 1.07 mg/dL (0.52-1.04); EST GLOMERULAR FILTRATION RATE 52.1 ML/MIN; Potassium 4.1 mmol/L (3.5-5.1)
[2022-08-14 11:19] LABS: INFLUENZA A NEGATIVE (NEGATIVE); INFLUENZA B NEGATIVE (NEGATIVE); RESPIRATORY SYNCTIAL VIRUS NEGATIVE (Negative); SARS-CoV-2 Xpert Express NEGATIVE (NEGATIVE)
[2022-08-14] MEDS ORDERED: ZITHROMAX IV*** 0 MG in Sodium Chloride 0.9% 250 ML 250 ML IV ONE (11:50)
[2022-08-14] MEDS ORDERED: ROCEPHIN 2 Gm-D5w 50ML BAG** 2 G/50 ML IVPB IV STA (11:50)
--- NOTE | 2022-08-14 11:50 | ERPHSYRPT ---
- History of Present Illness Time Seen by Provider: 08/14/22 10:20 Source: patient Exam Limitations: no limitations Patient Subjective Stated Complaint: pt arrived per ambulance for cough, and congestion since last night. 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 Patient has a history of COPD. Patient feels her symptoms are the same. Symptoms started yesterday. Patient had a tough time sleeping last night due to shortness of breath. Patient concerned that her symptoms are going to be progressive. No chest pain. No nausea vomiting or diaphoresis. Symptoms are moderate in intensity. No specific worsening improving factors. Patient voices no other complaints or concerns at this time. Portions of this note were created with voice recognition technology. There may be grammatical, spelling, punctuation or sound alike errors Timing/Duration: yesterday Activities at Onset: none Severity of Dyspnea-Max: moderate Severity of Dyspnea-Current: mild Possible Cause: unknown cause Associated Symptoms: denies symptoms Allergies/Adverse Reactions: ofloxacin [From Floxin] Allergy (Verified 08/14/22 10:04) Sulfa (Sulfonamide Antibiotics) [Sulfa(Sulfonamide Antibiotics)] Allergy (Verified 08/14/22 10:04) Home Medications: Allopurinol 300 mg [Zyloprim 300 mg] 300 mg PO DAILY 11/30/16 [History] Apixaban [Eliquis] 5 mg PO DAILY 11/30/16 [History] Levothyroxine Sodium [Synthroid] 200 mcg PO DAILY 11/30/16 [History] Magnesium Oxide 400 mg [Mag-Ox 400] 400 mg PO BID 11/30/16 [History] Vitamin B Complex [Super B-50 Complex] 1 cap PO DAILY 05/21/17 [History] Metformin HCl 500 mg PO BID 04/24/18 [History] Metoprolol Succinate 50 mg PO DAILY 09/05/20 [History] Pantoprazole Sodium [Protonix] 40 mg PO DAILY 08/19/21 [History] Acetaminophen/Diphenhydramine [Tylenol Pm Exstr 500-25Mg Cplt] 1 tab PO HS 09/18/21 [History] Albuterol Sulfate [Proair Hfa] 2 puff IH Q6H PRN 09/18/21 [History] Amlodipine Besylate 2.5 mg PO DAILY 09/18/21 [History] Furosemide 40 mg [Lasix 40 MG] 40 mg PO BID 09/18/21 [History] Hydrocodone/APAP 5-325 Tab^^^ [[place] 5-325 Tablet^^^] 10 mg PO Q6H 09/18/21 [History] Ascorbic Acid 500 mg [Vitamin C 500 MG] 500 mg PO DAILY 04/19/22 [History] Diphenhydramine HCl [Benadryl Allergy] 50 mg PO DAILY 04/19/22 [History] Potassium Chloride 10 meq PO DAILY 04/19/22 [History] Tamsulosin HCl 0.4 mg [Flomax 0.4 MG] 0.4 mg PO DAILY 04/19/22 [History] Zinc 50 mg PO DAILY 04/19/22 [History] Levothyroxine Sodium 25 Mcg [Synthroid 25 Mcg] 25 mcg PO DAILY 05/02/22 [History] Hx Tetanus, Diphtheria Vaccination/Date Given: Yes Hx Influenza Vaccination/Date Given: Yes Hx Pneumococcal Vaccination/Date Given: Yes Immunizations Up to Date: Yes Travel Risk - International Travel Have you traveled outside of the country in past 3 weeks: No - Coronavirus Screening Symptoms: Cough: New Onset - Vaccine Status Have you recieved a Covid-19 vaccination: Yes Poultry Cleaner: Moderna - Vaccination Dates Date of 2cond Vaccination (if applicable): unknown - Review of Systems Constitutional: No Symptoms, No Fever, No Chills Eyes: No Symptoms Ears, Nose, & Throat: No Symptoms Respiratory: No Symptoms, No Cough, No Dyspnea Cardiac: No Symptoms, No Chest Pain, No Edema, No Syncope Abdominal/Gastrointestinal: No Symptoms, No Abdominal Pain, No Nausea, No Vomiting, No Diarrhea Genitourinary Symptoms: No Symptoms, No Dysuria Musculoskeletal: No Symptoms, No Back Pain, No Neck Pain Skin: No Symptoms, No Rash Neurological: No Symptoms, No Dizziness, No Focal Weakness, No Sensory Changes Psychological: No Symptoms Endocrine: No Symptoms Hematologic/Lymphatic: No Symptoms Immunological/Allergic: No Symptoms All Other Systems: Reviewed and Negative - Past Medical History Pertinent Past Medical History: Yes Neurological History: Peripheral Neuropathy ENT History: No Pertinent History Cardiac History: Hypertension Respiratory History: COPD Endocrine Medical History: Diabetes Type II, Hypothyroidism Musculoskeletal History: Arthritis GI Medical History: Diverticulitis, Diverticulosis, Hemorrhoids, Hernia History: Renal Disease Psycho-Social History: No Pertinent History Female Reproductive Disorders: No Pertinent History Other Medical History: PE, ARRYTHMIA, RENAL DZ, DDD, RA, OA, MYELODSYPLASTIC SYNDROME. PSH: CARDIAC CATH, HYSTERECTOMY, LUMPECTOMY, BASAL AND SQUAMOUS CELL CA. - Past Surgical History Past Surgical History: Yes Neuro Surgical History: No Pertinent History Cardiac: Cardiac Catheterization Respiratory: No Pertinent History Gastrointestinal: No Pertinent History Genitourinary: No Pertinent History Musculoskeletal: No Pertinent History Female Surgical History: Hysterectomy, Lumpectomy Other Surgical History: breast tumor removed, tumor removed from back benign, 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, cauterization due to intestinal bleed - Social History Smoking Status: Never smoker Exposure to second hand smoke: No Drug Use: none Patient Lives Alone: No Significant Family History: no pertinent family hx - Nursing Vital Signs Nursing Vital Signs: Initial Vital Signs Temperature 98.8 F 08/14/22 09:58 Pulse Rate 114 H 08/14/22 09:58 Respiratory Rate 18 08/14/22 09:58 Blood Pressure 165/89 08/14/22 09:58 O2 Sat by Pulse Oximetry 97 08/14/22 09:58 Pain Scale Pain Intensity 3 - Physical Exam General Appearance: no apparent distress, alert Eye Exam: PERRL/EOMI Ears, Nose, Throat Exam: hearing grossly normal, normal ENT inspection, normal pharynx Neck Exam: normal inspection, supple, full range of motion Respiratory Exam: diminished breath sounds, rhonchi, wheezing Cardiovascular/Chest Exam: normal heart sounds, regular rate/rhythm Abdominal/Gastrointestinal Exam: soft, other (Colostomy), No tenderness, No distention, No mass Extremity Exam: non-tender, normal range of motion, normal inspection, no calf tenderness, no pedal edema Neurologic Exam: alert, oriented x 3, cooperative, dairy technician II-XII nml as tested, sensation nml, No motor deficits Skin Exam: normal color, warm, No dry Lymphatic Exam: No adenopathy SpO2 Interpretation: normal SpO2: 96 O2 Delivery: Room Air - Course Nursing assessment & vital signs reviewed: Yes - Radiology Exams Chest X-ray Interpretation: Teleradiologist Report (Nonacute chest with chronic features. Hyperinflated, right lung granuloma. Intact bony thorax osteopenia degenerative changes. T12 kyphoplasty) Ordered Tests: Active Orders 24 hr Category Date Time Status Hydroelectric Production Technician STAT Care 08/14/22 10:09 Active EKG-ER Only STAT Care 08/14/22 10:08 Active IV Insertion STAT Care 08/14/22 10:08 Active Pulse Oximetry (ED) STAT Care 08/14/22 10:08 Active CHEST 1 VIEW (PORTABLE) Stat Exams 08/14/22 10:09 Completed BLOOD CULTURE Stat Lab 08/14/22 10:30 Received CBC W DIFF Stat Lab 08/14/22 10:20 Completed CMP Stat Lab 08/14/22 10:20 Completed NT PRO BNP Stat Lab 08/14/22 10:20 Completed TROPONIN Q4H Lab 08/14/22 10:20 Completed TROPONIN Q4H Lab 08/14/22 14:15 Ordered TROPONIN Q4H Lab 08/14/22 18:15 Ordered Respiratory Therapy Assessment ONCE RT 08/14/22 11:20 Active Transfer Order Routine Transfer 08/14/22 Ordered Medication Summary Generic Name Dose Route Start Last Admin Trade Name Freq PRN Reason Stop Dose Admin Ceftriaxone Sodium/Dextrose 2 g in 50 mls @ 100 mls/hr 08/14/22 11:50 08/14/22 12:00 Rocephin 2 Gm-D5w 50ml Bag IV 08/14/22 12:19 100 mls/hr STAT STA 100 mls/hr Administration Azithromycin / Sodium Chloride 250 mls @ 125 mls/hr 08/14/22 11:50 IV 08/14/22 13:49 STAT ONE Discontinued Medications Generic Name Dose Route Start Last Admin Trade Name Freq PRN Reason Stop Dose Admin Albuterol/Ipratropium 3 ml 08/14/22 10:13 08/14/22 11:18 Ipratropium/Albuterol Sulfate 3 Ml Ampul.Neb IH 08/14/22 10:14 3 ml STAT ONE Administration Albuterol/Ipratropium Confirm 08/14/22 11:15 Ipratropium/Albuterol Sulfate 3 Ml Ampul.Neb Administered 08/14/22 11:16 Dose 3 ml IH .STK-MED ONE Methylprednisolone Sodium 0 mg 08/14/22 10:11 08/14/22 11:01 Succinate 125 mg/ Sterile IV 08/14/22 10:12 125 mg Water 2 ml STAT ONE Administration Ceftriaxone Sodium/Dextrose Confirm 08/14/22 11:58 Rocephin 2 Gm-D5w 50ml Bag Administered 08/14/22 11:59 Dose 2 g in 50 mls @ ud IV .STK-MED ONE Methylprednisolone Sodium Succinate Confirm 08/14/22 11:00 Methylprednis Sod Succ 125 Mg/2 Ml Vial Administered 08/14/22 11:01 Dose 125 mg .ROUTE .STK-MED ONE Sterile Water Confirm 08/14/22 10:59 Water For Injection,Sterile 10 Ml Vial Administered 08/14/22 11:00 Dose 10 ml IJ .STK-MED ONE Lab/Rad Data: Laboratory Result Diagrams 08/14/22 10:20 08/14/22 10:20 Laboratory Results 08/14/22 08/14/22 08/14/22 Range/Units 10:30 10:20 10:20 WBC (4.0-10.5) x10^3/uL RBC (4.1-5.4) x10^6/uL Hgb (12.0-16.0) g/dL Hct (35-47) % MCV (78-100) fL MCH (26-32) pg MCHC (32-36) g/dL RDW (11.5-14.0) % Plt Count (150-450) x10^3/uL MPV (7.5-11.0) fL Gran % (36.0-66.0) % Immature Gran % (Auto) (0.00-0.4) % Nucleat RBC Rel Count (0.00-0.1) % Eos # (Auto) (0-0.5) x10^3/uL Immature Gran # (Auto) (0.00-0.03) x10^3u/L Absolute Lymphs (auto) (1.0-4.6) x10^3/uL Absolute Monos (auto) (0.0-1.3) x10^3/uL Absolute Nucleated RBC (0.00-0.01) x10^3u/L Lymphocytes % (24.0-44.0) % Monocytes % (0.0-12.0) % Eosinophils % (0.00-5.0) % Basophils % (0.0-0.4) % Absolute Granulocytes (1.4-6.9) x10^3/uL Basophils # (0-0.4) x10^3/uL Sodium 135 L (137-145) mmol/L Potassium 4.1 (3.5-5.1) mmol/L Chloride 104 (98-107) mmol/L Carbon Dioxide 22 (22-30) mmol/L Anion Gap 14.0 (5-15) MEQ/L BUN 16 (7-17) mg/dL Creatinine 1.07 H (0.52-1.04) mg/dL Estimated GFR 52.1 ML/MIN Glucose 139 H (74-106) mg/dL Calcium 9.4 (8.4-10.2) mg/dL Total Bilirubin 0.50 (0.2-1.3) mg/dL AST 21 (14-36) U/L ALT 14 (0-35) U/L Alkaline Phosphatase 122 (38-126) U/L Troponin I < 0.012 (0.000-0.034) ng/mL NT-Pro-B Natriuret Pep 551 (0-1800) pg/mL Serum Total Protein 7.0 (6.3-8.2) g/dL Albumin 3.8 (3.5-5.0) g/dL Influenza Type A Ag NEGATIVE (NEGATIVE) Influenza Type B Ag NEGATIVE (NEGATIVE) RSV (PCR) NEGATIVE (Negative) SARS-CoV-2 (PCR) NEGATIVE (NEGATIVE) 08/14/22 Range/Units 10:20 WBC 12.7 H (4.0-10.5) x10^3/uL RBC 3.84 L (4.1-5.4) x10^6/uL Hgb 11.3 L (12.0-16.0) g/dL Hct 35.9 (35-47) % MCV 93.5 (78-100) fL MCH 29.4 (26-32) pg MCHC 31.5 L (32-36) g/dL RDW 15.5 H (11.5-14.0) % Plt Count 199 (150-450) x10^3/uL MPV 8.8 (7.5-11.0) fL Gran % 74.1 H (36.0-66.0) % Immature Gran % (Auto) 0.6 H (0.00-0.4) % Nucleat RBC Rel Count 0.0 (0.00-0.1) % Eos # (Auto) 0.80 H (0-0.5) x10^3/uL Immature Gran # (Auto) 0.08 H (0.00-0.03) x10^3u/L Absolute Lymphs (auto) 1.77 (1.0-4.6) x10^3/uL Absolute Monos (auto) 0.56 (0.0-1.3) x10^3/uL Absolute Nucleated RBC 0.00 (0.00-0.01) x10^3u/L Lymphocytes % 13.9 L (24.0-44.0) % Monocytes % 4.4 (0.0-12.0) % Eosinophils % 6.3 H (0.00-5.0) % Basophils % 0.7 (0.0-0.4) % Absolute Granulocytes 9.42 H (1.4-6.9) x10^3/uL Basophils # 0.09 (0-0.4) x10^3/uL Sodium (137-145) mmol/L Potassium (3.5-5.1) mmol/L Chloride (98-107) mmol/L Carbon Dioxide (22-30) mmol/L Anion Gap (5-15) MEQ/L BUN (7-17) mg/dL Creatinine (0.52-1.04) mg/dL Estimated GFR ML/MIN Glucose (74-106) mg/dL Calcium (8.4-10.2) mg/dL Total Bilirubin (0.2-1.3) mg/dL AST (14-36) U/L ALT (0-35) U/L Alkaline Phosphatase (38-126) U/L Troponin I (0.000-0.034) ng/mL NT-Pro-B Natriuret Pep (0-1800) pg/mL Serum Total Protein (6.3-8.2) g/dL Albumin (3.5-5.0) g/dL Influenza Type A Ag (NEGATIVE) Influenza Type B Ag (NEGATIVE) RSV (PCR) (Negative) SARS-CoV-2 (PCR) (NEGATIVE) - Progress Progress: improved Air Movement: good Progress Note: Patient reassessed. She feels well. Nebulizer treatment significantly helped her symptoms. Vital stable. Case discussed with accepts admission to observation. Plan of care discussed with patient and her daughter. They agree to admission at [facility] for further evaluation and treatment. We are currently awaiting the results of COVID testing. Portions of this note were created with voice recognition technology. There may be grammatical, spelling, punctuation or sound alike errors 08/14/22 12:13 Blood Culture(s) Obtained: Yes Antibiotics given: Yes Discussed with Dr.: Alexandre Will see patient in: hospital (observation) Counseled pt/family regarding: lab results, diagnosis, rad results - Departure Departure Disposition: Home Clinical Impression: Right lung granuloma, Osteopenia, COPD exacerbation Condition: Stable Critical Care Time: No Referrals: TRINH MINAYA MD [Primary Care Provider] - Follow up/PCP as directed Instructions: Chronic Obstructive Pulmonary Disease
[2022-08-14] MEDS ORDERED: ROCEPHIN 2 Gm-D5w 50ML BAG** 2 G/50 ML IVPB IV ONE (11:58)
[2022-08-14] MEDS: Zithromax 500 MG/ 250 ML NaCl Premix 500 MG/250 ML IVPB IV SCH (13:51)
[2022-08-14] MEDS ORDERED: Toprol Xl 50 MG PO ONE (14:00)
[2022-08-14] MEDS ORDERED: VENTOLIN COMMON CANISTER IH PRN (14:02)
[2022-08-14] MEDS: HYDROCODONE-ACETAMIN 10-325 MG PO PRN (14:29)
[2022-08-14] MEDS: MAG-OX 400 PO SCH ×2 (14:29→21:13)
[2022-08-14] MEDS: Klor Con PO SCH (14:29)
[2022-08-14] MEDS: ELIQUIS 2.5 MG TABLET PO SCH (14:29)
[2022-08-14] MEDS: Glucophage 500 MG PO SCH (14:29)
[2022-08-14] MEDS: Lasix 40 MG PO SCH (14:29)
[2022-08-14] MEDS: Toprol Xl 50 MG PO SCH (14:29)
[2022-08-14] MEDS: Flomax 0.4 MG PO SCH (14:29)
[2022-08-14] MEDS: Vitamin C 500 MG PO SCH (14:38)
[2022-08-14] MEDS: ZYLOPRIM 300 MG PO SCH (14:38)
[2022-08-14] MEDS: BENADRYL 25 MG CAPSULE PO SCH ×2 (14:38→21:13)
[2022-08-14] MEDS: Protonix 40MG Tablet PO SCH (14:38)
[2022-08-14] MEDS: NORVASC 5 MG PO SCH (14:38)
[2022-08-14] MEDS: DUONEB 0.5-3 MG/3 ml Neb IH SCH ×3 (14:54→23:15)
[2022-08-14] MEDS: SYNTHROID 112 MCG PO SCH (14:58)
[2022-08-14] MEDS: Zinc Gluconate 50 MG PO SCH (14:58)
[2022-08-14] MEDS: solu-MEDROL 60 MG, Sterile H2O 10 ml 2 ML IV SCH ×4 (16:41→23:29)
[2022-08-14] MEDS: HUMALOG SQ PRN ×2 (16:42→21:13)
[2022-08-14] MEDS: TYLENOL EXTRA STRENGTH 500 MG PO SCH (21:13)
[2022-08-15] MEDS: DUONEB 0.5-3 MG/3 ml Neb IH SCH ×5 (03:20→22:11)
[2022-08-15 04:54] LABS: Hematocrit 33.4 % (35-47); Hemoglobin 10.8 g/dL (12.0-16.0); Mean Cell Volume 92.3 fL (78-100); Mean Corpuscular Hemoglobin 29.8 pg (26-32); Mean Corpuscular Hgb Concent. 32.3 g/dL (32-36); Mean Platelet Volume 9.2 fL (7.5-11.0); Platelet Count 178 x10^3/uL (150-450); Red Blood Count 3.62 x10^6/uL (4.1-5.4); Red Cell Distribution Width 15.4 % (11.5-14.0); White Blood Count 8.7 x10^3/uL (4.0-10.5)
[2022-08-15 05:08] LABS: ALBUMIN 3.5 g/dL (3.5-5.0); ANION GAP 13.7 MEQ/L (5-15); BILIRUBIN,TOTAL 0.4 mg/dL (0.2-1.3); Calcium 9.2 mg/dL (8.4-10.2); Creatinine 1 1.34 mg/dL (0.52-1.04); EST GLOMERULAR FILTRATION RATE 40.1 ML/MIN; Potassium 4.4 mmol/L (3.5-5.1); Total Protein 6.6 g/dL (6.3-8.2)
[2022-08-15] MEDS: solu-MEDROL 60 MG, Sterile H2O 10 ml 2 ML IV SCH ×6 (05:10→22:02)
[2022-08-15] MEDS: Glucophage 500 MG PO SCH ×2 (08:06→18:08)
[2022-08-15] MEDS: ZYLOPRIM 300 MG PO SCH (08:07)
[2022-08-15] MEDS: ELIQUIS 2.5 MG TABLET PO SCH (08:07)
[2022-08-15] MEDS: Vitamin C 500 MG PO SCH (08:09)
[2022-08-15] MEDS: MAG-OX 400 PO SCH ×2 (08:09→22:02)
[2022-08-15] MEDS: Flomax 0.4 MG PO SCH (08:09)
[2022-08-15] MEDS: SYNTHROID 112 MCG PO SCH (08:10)
[2022-08-15] MEDS: BENADRYL 25 MG CAPSULE PO SCH ×2 (08:10→22:03)
[2022-08-15] MEDS: Klor Con PO SCH (08:10)
[2022-08-15] MEDS: Protonix 40MG Tablet PO SCH (08:10)
[2022-08-15] MEDS: Toprol Xl 50 MG PO SCH (08:11)
[2022-08-15] MEDS: Zinc Gluconate 50 MG PO SCH (08:11)
[2022-08-15] MEDS: VITA-BEE WITH C PO SCH (08:11)
[2022-08-15] MEDS: Lasix 40 MG PO SCH ×2 (08:19→18:08)
[2022-08-15] MEDS ORDERED: [UNRECOGNIZED DRUG - REMARK] PO SCH (10:00)
[2022-08-15] MEDS ORDERED: NON-FORMULARY ITEM (Amlodipine Besylate [Amlodipine Besylate] 2.5 MG Tablet) PO SCH (10:00)
[2022-08-15] MEDS ORDERED: VITAMIN B COMPLEX PO SCH (10:00)
[2022-08-15] MEDS ORDERED: NON-FORMULARY ITEM (Zinc [Zinc] 50 MG Tablet) PO SCH (10:00)
[2022-08-15] MEDS ORDERED: NON-FORMULARY ITEM (Metoprolol Succinate 25 MG Tab.Er.24h) PO SCH (10:00)
[2022-08-15] MEDS ORDERED: SYNTHROID 25 MCG PO SCH (10:00)
[2022-08-15] MEDS ORDERED: LEVOTHYROXINE SODIUM 200 MCG PO SCH (10:00)
[2022-08-15] MEDS: ROCEPHIN 1 Gm-D5w 50 ml Bag** 1 G/50 ML IVPB IV SCH (10:12)
[2022-08-15] MEDS: Zithromax 500 MG/ 250 ML NaCl Premix 500 MG/250 ML IVPB IV SCH (10:12)
[2022-08-15] MEDS: NORVASC 5 MG PO SCH (10:20)
[2022-08-15] MEDS ORDERED: CEPACOL SORE THROAT LOZENGE PO PRN (12:21)
[2022-08-15] MEDS: HUMALOG SQ PRN ×2 (12:36→22:21)
[2022-08-15] MEDS: TYLENOL EXTRA STRENGTH 500 MG PO SCH (22:03)
[2022-08-16] MEDS: DUONEB 0.5-3 MG/3 ml Neb IH SCH ×3 (01:25→13:02)
[2022-08-16] MEDS: Lasix 40 MG PO SCH (09:17)
[2022-08-16] MEDS: Protonix 40MG Tablet PO SCH (09:17)
[2022-08-16] MEDS: NORVASC 5 MG PO SCH (09:17)
[2022-08-16] MEDS: Zinc Gluconate 50 MG PO SCH (09:17)
[2022-08-16] MEDS: Flomax 0.4 MG PO SCH (09:17)
[2022-08-16] MEDS: Klor Con PO SCH (09:18)
[2022-08-16] MEDS: ZYLOPRIM 300 MG PO SCH (09:18)
[2022-08-16] MEDS: Toprol Xl 50 MG PO SCH (09:18)
[2022-08-16] MEDS: Vitamin C 500 MG PO SCH (09:18)
[2022-08-16] MEDS: ELIQUIS 2.5 MG TABLET PO SCH (09:18)
[2022-08-16] MEDS: Glucophage 500 MG PO SCH (09:18)
[2022-08-16] MEDS: VITA-BEE WITH C PO SCH (09:18)
[2022-08-16] MEDS: Zithromax 500 MG/ 250 ML NaCl Premix 500 MG/250 ML IVPB IV SCH (09:18)
[2022-08-16] MEDS: BENADRYL 25 MG CAPSULE PO SCH (09:18)
[2022-08-16] MEDS: ROCEPHIN 1 Gm-D5w 50 ml Bag** 1 G/50 ML IVPB IV SCH (09:18)
[2022-08-16] MEDS: MAG-OX 400 PO SCH (09:19)
[2022-08-16] MEDS: SYNTHROID 112 MCG PO SCH (09:19)
[2022-08-16] MEDS: solu-MEDROL 60 MG, Sterile H2O 10 ml 2 ML IV SCH ×2 (09:19)
[2022-08-16] MEDS: HYDROCODONE-ACETAMIN 10-325 MG PO PRN (09:36)
[2022-08-16 13:05] VITALS: BP 136/64
[2022-08-16 14:09] VITALS: PULSE 102; O2SAT 97
--- NOTE | 2022-08-16 14:14 | PCM.NOTE ---
Date and Time: 08/16/22 1411 Subjective Assessment: Pt's breathing is better than at admission. She says she needs pain meds for her back. Her daughter says they do will at home (daughter had stroke 12d ago, still having some issues) as long as pt can stand on her own. - Review of Systems Constitutional: No Fever Respiratory: Cough Objective Exam General Appearance: no apparent distress, alert Neurologic Exam: oriented x 3, cooperative Skin Exam: normal color, warm, dry, No rash Wound Assessment: Skin/Wound Assessment Wound/Incision Assessment Start: 08/14/22 20:23 Text: Status: Active Freq: Q6H Protocol: Document 08/16/22 08:00 AR (Rec: 08/16/22 10:40 AR [id number]) Wound/Incision Assessment Posterior Sacrum Wound Assessment Shift Assessment Wound Type Pressure Ulcer Wound Stage Stage II Wound Photo Photo Taken Yes Eye Exam: eyes nml inspection Ears, Nose, Throat Exam: moist mucous membranes Neck Exam: normal inspection Respiratory Exam: diminished breath sounds (good air exchange), prolonged expirations, No crackles/rales, No rhonchi, No wheezing Cardiovascular Exam: regular rate/rhythm, normal heart sounds, No murmur Gastrointestinal/Abdomen Exam: soft, normal bowel sounds, No tenderness, No distention, No mass, No guarding, No rebound Extremity Exam: normal inspection, No pedal edema, No swelling Back Exam: normal inspection, No rash OBJECTIVE DATA Vital Signs: Vital Signs - 24 hr Temp Pulse Resp BP Pulse Ox 08/16/22 13:02 102 H 20 97 08/16/22 12:00 97.6 F 83 18 136/64 96 08/16/22 07:58 97.7 F 96 H 20 138/62 96 08/16/22 07:40 95 H 22 95 08/16/22 04:00 97.3 F 99 H 17 142/61 99 08/16/22 01:25 98 H 18 98 08/16/22 00:00 98.0 F 103 H 17 119/56 98 08/15/22 20:00 97.5 F 107 H 16 126/56 97 08/15/22 18:40 107 H 21 97 08/15/22 16:00 97.5 F 106 H 21 140/63 96 Pain Assessment - Last Documented Pain Intensity 0 Pain Scale Used 0-10 Pain Scale Intake and Output: Intake & Output 08/14/22 08/15/22 08/16/22 08/17/22 11:59 11:59 11:59 11:59 Intake Total 1220 1000 360 Balance 1220 1000 360 Weight 160 kg 78.1 kg 80 kg Lab Results: Lab Results-Last 24 Hours 08/15/22 08/15/22 08/16/22 Range/Units 15:46 21:12 07:49 POC Glucometer 246 H 282 H 195 H (74 to 106) mg/dL 08/16/22 Range/Units 11:53 POC Glucometer 318 H (74 to 106) mg/dL Assessment/Plan (1) COPD exacerbation Current Visit: Yes Status: Acute Assessment & Plan: Doing much better. If weakness is improved, may be able to send home, but daughter who is caring for her had a stroke recently, so pt's functional status must be fairly good. Code(s): J44.1 - CHRONIC OBSTRUCTIVE PULMONARY DISEASE W (ACUTE) EXACERBATION (2) General weakness Current Visit: Yes Status: Acute Code(s): R53.1 - WEAKNESS
--- NOTE | 2022-08-16 15:02 | PCM.DS ---
Discharge Summary Date of Admission: 08/14/22 12:50 Admitting Physician: TRINH MINAYA Primary Care Provider: TRINH MINAYA Allergies Allergies ofloxacin [From Floxin] Allergy (Verified 08/14/22 10:04) Sulfa (Sulfonamide Antibiotics) [Sulfa(Sulfonamide Antibiotics)] Allergy (Verified 08/14/22 10:04) Hospital Summary - Hospital Course Hospital Course: Pt an 82 yo male pt of Dr. Minaya admitted through ER wtih cough/congestion x 1 d - found to have COPD exacerbation. CXR nonacute. WBC 12 initially with L shift; next day wnl. Serum sodium 135 on admission; 130 yesterday and will be checked today prior to any potential discharge. Started on rocephin, zithromax, and steroids. Nebulizers with improvement. She is doing better, is able to stand well on her own and family feels comfortable taking her home. Will be discharged to home and f/u with DR. Minaya. - Vitals & Intake/Output Vital Signs: Vital Signs Temperature 97.6 F 08/16/22 12:00 Pulse Rate 102 H 08/16/22 13:02 Respiratory Rate 20 08/16/22 13:02 Blood Pressure 136/64 08/16/22 12:00 O2 Sat by Pulse Oximetry 97 08/16/22 13:02 Intake & Output: Intake & Output 08/14/22 08/15/22 08/16/22 08/17/22 11:59 11:59 11:59 11:59 Intake Total 1220 1000 360 Balance 1220 1000 360 Weight 160 kg 78.1 kg 80 kg - Lab Result Diagrams: 08/15/22 04:40 08/15/22 04:40 Lab Results-Last 24 Hrs: Lab Results-Last 24 Hours 08/15/22 08/15/22 08/16/22 Range/Units 15:46 21:12 07:49 POC Glucometer 246 H 282 H 195 H (74 to 106) mg/dL 08/16/22 Range/Units 11:53 POC Glucometer 318 H (74 to 106) mg/dL Micro Results-Entire Visit: Microbiology 08/14/22 10:30 Blood Culture - Preliminary Blood NO GROWTH TO DATE 08/14/22 10:24 Blood Culture - Preliminary Blood NO GROWTH TO DATE Accuchecks Date 08/16/22 Date 08/16/22 Time 07:45 - Procedures and Test Procedures and Tests throughout Hospitalization: Therapy Orders & Screens 08/14/22 11:20 Respiratory Therapy Assessment ONCE Comment: 08/15/22 07:00 Respiratory Therapy Assessment DAILY Comment: Diagnosis: copd exac Discharge Exam General Appearance: no apparent distress, alert Neurologic Exam: oriented x 3, cooperative Eye Exam: eyes nml inspection Ears, Nose, Throat Exam: moist mucous membranes Neck Exam: normal inspection Respiratory Exam: lungs clear, diminished breath sounds (good air exchange), No crackles/rales, No rhonchi, No wheezing Cardiovascular Exam: regular rate/rhythm, normal heart sounds, No murmur Gastrointestinal/Abdomen Exam: soft, normal bowel sounds, No tenderness, No distention, No mass, No guarding, No rebound Back Exam: normal inspection, No rash Extremity Exam: normal inspection, No pedal edema, No swelling Skin Exam: normal color, warm, dry, No rash Wound Assessment: Skin/Wound Assessment Wound/Incision Assessment Start: 08/14/22 20:23 Text: Status: Active Freq: Q6H Protocol: Document 08/16/22 14:00 AR (Rec: 08/16/22 14:51 AR [id number]) Wound/Incision Assessment Posterior Sacrum Wound Assessment Shift Assessment Wound Type Pressure Ulcer Wound Stage Stage II Wound Photo Photo Taken Yes Final Diagnosis/Problem List - Final Discharge Diagnosis/Problem (1) COPD exacerbation Current Visit: Yes Status: Acute Assessment & Plan: Home on augmentin, lactobacillus, and prednisone. Code(s): J44.1 - CHRONIC OBSTRUCTIVE PULMONARY DISEASE W (ACUTE) EXACERBATION (2) General weakness Current Visit: Yes Status: Resolved Code(s): R53.1 - WEAKNESS (3) Hyponatremia Current Visit: Yes Status: Acute Assessment & Plan: will recheck prior to discharge. Code(s): E87.1 - HYPO-OSMOLALITY AND HYPONATREMIA - Discharge Disposition: Home, Self-Care Condition: Stable Prescriptions: New Lactobacillus Acidophilus [Acidophilus TABLET] 1 tab PO BID #14 tablet Amox Tr/Potass Clav. 875 mg [Augmentin 875-125 Tablet] 875 mg PO BID #14 tablet Prednisone 20 mg [Deltasone 20 mg] 20 mg PO DAILY #17 tablet Continue Magnesium Oxide 400 mg [Mag-Ox 400] 400 mg PO BID Allopurinol 300 mg [Zyloprim 300 mg] 300 mg PO DAILY Apixaban [Eliquis] 5 mg PO DAILY Levothyroxine Sodium [Synthroid] 200 mcg PO DAILY Vitamin B Complex [Super B-50 Complex] 1 cap PO DAILY Metformin HCl 500 mg PO BID Metoprolol Succinate 50 mg PO DAILY Pantoprazole Sodium [Protonix] 40 mg PO DAILY Albuterol Sulfate [Proair Hfa] 2 puff IH Q6H PRN PRN Reason: Shortness Of Breath/Wheezing Furosemide 40 mg [Lasix 40 MG] 40 mg PO BID Amlodipine Besylate 2.5 mg PO DAILY Acetaminophen/Diphenhydramine [Tylenol Pm Exstr 500-25Mg Cplt] 1 tab PO HS Tamsulosin HCl 0.4 mg [Flomax 0.4 MG] 0.4 mg PO DAILY Zinc 50 mg PO DAILY Ascorbic Acid 500 mg [Vitamin C 500 MG] 500 mg PO DAILY Diphenhydramine HCl [Benadryl Allergy] 50 mg PO DAILY Potassium Chloride 10 meq PO DAILY Levothyroxine Sodium 25 Mcg [Synthroid 25 Mcg] 25 mcg PO DAILY Hydrocodone/Acetaminophen [Hydrocodone-Acetamin 10-325 mg] 1 tab PO Q6-8HPRN PRN PRN Reason: Pain Follow up with: TRINH MINAYA MD [Primary Care Provider] -
[2022-08-16 15:59] LABS: ANION GAP 17.3 MEQ/L (5-15); Calcium 9.4 mg/dL (8.4-10.2); Creatinine 1 1.5 mg/dL (0.52-1.04); EST GLOMERULAR FILTRATION RATE 35.2 ML/MIN
--- NOTE | 2022-08-18 15:07 | PCM.HP ---
History of Present Illness - Chief Complaint Chief Complaint: shortness of breath for 2-3 days History of Present Illness: is a 82 year old female.presents to our ED for evaluation of progressive shortness of breath. Patient has a history of COPD. Patient feels her symptoms are the same. Symptoms started yesterday. Patient had a tough time sleeping last night due to shortness of breath. Patient concerned that her symptoms are going to be progressive. No chest pain. No nausea vomiting or diaphoresis. Symptoms are moderate in intensity. No specific worsening improving factors. Patient voices no other complaints or concerns at this time. - Review of Systems Constitutional: No Fever, No Chills Eyes: No Symptoms Ears, Nose, & Throat: No Symptoms Respiratory: Cough, Orthopnea, Short Of Breath, Wheezing Cardiac: No Chest Pain, No Edema, No Syncope Abdominal/Gastrointestinal: No Abdominal Pain, No Nausea, No Vomiting, No Diarrhea Genitourinary Symptoms: No Dysuria Musculoskeletal: No Back Pain, No Neck Pain Skin: No Rash Neurological: No Dizziness, No Focal Weakness, No Sensory Changes Psychological: No Symptoms Endocrine: No Symptoms Hematologic/Lymphatic: No Symptoms Immunological/Allergic: No Symptoms Medications & Allergies Home Medications: Home Medication List Allopurinol 300 mg [Zyloprim 300 mg] 300 mg PO DAILY 11/30/16 [History Confirmed 08/14/22] Apixaban [Eliquis] 5 mg PO DAILY 11/30/16 [History Confirmed 08/14/22] Levothyroxine Sodium [Synthroid] 200 mcg PO DAILY 11/30/16 [History Confirmed 08/14/22] Magnesium Oxide 400 mg [Mag-Ox 400] 400 mg PO BID 11/30/16 [History Confirmed 08/14/22] Vitamin B Complex [Super B-50 Complex] 1 cap PO DAILY 05/21/17 [History Confirmed 08/14/22] Metformin HCl 500 mg PO BID 04/24/18 [History Confirmed 08/14/22] Metoprolol Succinate 50 mg PO DAILY 09/05/20 [History Confirmed 08/14/22] Pantoprazole Sodium [Protonix] 40 mg PO DAILY 08/19/21 [History Confirmed 08/14/22] Acetaminophen/Diphenhydramine [Tylenol Pm Exstr 500-25Mg Cplt] 1 tab PO HS 09/18/21 [History Confirmed 08/14/22] Albuterol Sulfate [Proair Hfa] 2 puff IH Q6H PRN 09/18/21 [History Confirmed 08/14/22] Amlodipine Besylate 2.5 mg PO DAILY 09/18/21 [History Confirmed 08/14/22] Furosemide 40 mg [Lasix 40 MG] 40 mg PO BID 09/18/21 [History Confirmed 08/14/22] Ascorbic Acid 500 mg [Vitamin C 500 MG] 500 mg PO DAILY 04/19/22 [History Confirmed 08/14/22] Diphenhydramine HCl [Benadryl Allergy] 50 mg PO DAILY 04/19/22 [History Confirmed 08/14/22] Potassium Chloride 10 meq PO DAILY 04/19/22 [History Confirmed 08/14/22] Tamsulosin HCl 0.4 mg [Flomax 0.4 MG] 0.4 mg PO DAILY 04/19/22 [History Confirmed 08/14/22] Zinc 50 mg PO DAILY 04/19/22 [History Confirmed 08/14/22] Levothyroxine Sodium 25 Mcg [Synthroid 25 Mcg] 25 mcg PO DAILY 05/02/22 [History Confirmed 08/14/22] Hydrocodone/Acetaminophen [Hydrocodone-Acetamin 10-325 mg] 1 tab PO Q6-8HPRN PRN 08/14/22 [History Confirmed 08/14/22] Amox Tr/Potass Clav. 875 mg [Augmentin 875-125 Tablet] 875 mg PO BID #14 tablet 08/16/22 [Rx] Lactobacillus Acidophilus [Acidophilus TABLET] 1 tab PO BID #14 tablet 08/16/22 [Rx] Prednisone 20 mg [Deltasone 20 mg] 20 mg PO DAILY #17 tablet 08/16/22 [Rx] Allergies/Adverse Reactions: Allergies Allergy/AdvReac Type Severity Reaction Status Date / Time ofloxacin [From Floxin] Allergy Verified 08/14/22 10:04 Sulfa (Sulfonamide Allergy Verified 08/14/22 10:04 Antibiotics) [Sulfa(Sulfonamide Antibiotics)] - Past Medical History Past Medical History: Yes Neurological History: Peripheral Neuropathy ENT History: No Pertinent History Cardiac History: Hypertension Respiratory History: COPD Endocrine Medical History: Diabetes Type II, Hypothyroidism Musculoskelatal History: Arthritis GI Medical History: Diverticulitis, Diverticulosis, Hemorrhoids, Hernia History: Renal Disease Pyscho-Social History: No Pertinent History Reproductive Disorders: No Pertinent History Comment: PE, ARRYTHMIA, RENAL DZ, DDD, RA, OA, MYELODSYPLASTIC SYNDROME. PSH: CARDIAC CATH, HYSTERECTOMY, LUMPECTOMY, BASAL AND SQUAMOUS CELL CA. - Female History Are you now?: No - Past Surgical History Past Surgical History: Yes Neuro Surgical History: No Pertinent History Cardiac History: Cardiac Catheterization Respiratory Surgery: No Pertinent History GI Surgical History: No Pertinent History Genitourinary Surgical Hx: No Pertinent History Musculskeletal Surgical Hx: No Pertinent History Female Surgical History: Hysterectomy, Lumpectomy Other Surgical History: breast tumor removed, tumor removed from back benign, 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, cauterization due to intestinal bleed - Social History Smoking Status: Never smoker Exposure to second hand smoke: No Alcohol: None Drug Use: none Significant Family History: no pertinent family hx - Physical Exam General Appearance: no apparent distress, alert Neurologic Exam: alert, oriented x 3, cooperative, normal mood/affect, nml cerebellar function, nml station & gait, sensation nml, No motor deficits Eye Exam: PERRL/EOMI, eyes nml inspection Ears, Nose, Throat Exam: normal ENT inspection, TMs normal, pharynx normal, m oist mucous membranes Neck Exam: normal inspection, non-tender, supple, full range of motion Respiratory Exam: diminished breath sounds, wheezing, No respiratory distress Cardiovascular Exam: regular rate/rhythm, normal heart sounds, normal peripheral pulses Gastrointestinal/Abdomen Exam: soft, normal bowel sounds, No tenderness, No mass Back Exam: normal inspection, normal range of motion, No CVA tenderness, No vertebral tenderness Extremity Exam: normal inspection, normal range of motion, pelvis stable Skin Exam: normal color, warm, dry, No rash Lymphatic Exam: No adenopathy Results - Labs Lab/Micro Results: Microbiology 08/14/22 10:24 Blood Culture Gram Stain - Final Blood Not Reportable Blood Culture - Final NO GROWTH 08/14/22 10:30 Blood Culture Gram Stain - Final Blood Not Reportable Blood Culture - Final NO GROWTH Assessment/Plan (1) COPD exacerbation Status: Acute Assessment & Plan: Chief Complaint Diagnosis shortness of breath for 2-3 days Allergies Allergy/AdvReac Type Severity Reaction Status Date / Time ofloxacin [From Floxin] Allergy Verified 08/14/22 10:04 Sulfa (Sulfonamide Allergy Verified 08/14/22 10:04 Antibiotics) [Sulfa(Sulfonamide Antibiotics)] Home Medications Medication Instructions Recorded Confirmed Last Taken Type Hydrocodone/Acetaminophen 1 tab PO Q6-8HPRN PRN 08/14/22 08/14/22 08/14/22 History [Hydrocodone-Acetamin 10-325 mg] Amox Tr/Potass Clav. 875 mg 875 mg PO BID #14 tablet 08/16/22 Unknown Rx [Augmentin 875-125 Tablet] Lactobacillus Acidophilus 1 tab PO BID #14 tablet 08/16/22 Unknown Rx [Acidophilus TABLET] Prednisone 20 mg [Deltasone 20 20 mg PO DAILY #17 tablet 08/16/22 Unknown Rx mg] Current Medications Discontinued Medications Generic Name Dose Route Start Last Admin Trade Name Freq PRN Reason Stop Dose Admin Acetaminophen 500 mg 08/14/22 22:00 08/15/22 22:03 Acetaminophen 500 Mg Tablet PO 09/13/22 21:59 500 mg HS NKECHI Administration Hydrocodone Bitart/Acetaminophen 1 tablet 08/14/22 14:02 08/16/22 09:36 Hydrocodone/Acetamin 10-325 Mg Tablet PO 08/19/22 14:01 1 tablet Q6HPRN PRN Administration PAIN Albuterol Sulfate 2 puff 08/14/22 14:02 Albuterol Common Canister Inhaler IH 09/13/22 14:01 Q6HPRN PRN SHORTNESS OF BREATH/WHEEZING Albuterol/Ipratropium 3 ml 08/14/22 10:13 08/14/22 11:18 Ipratropium/Albuterol Sulfate 3 Ml Ampul.Neb IH 08/14/22 10:14 3 ml STAT ONE Administration Albuterol/Ipratropium Confirm 08/14/22 11:15 Ipratropium/Albuterol Sulfate 3 Ml Ampul.Neb Administered 08/14/22 11:16 Dose 3 ml IH .STK-MED ONE Albuterol/Ipratropium 3 ml 08/14/22 15:00 08/15/22 22:11 Ipratropium/Albuterol Sulfate 3 Ml Ampul.[facility] 09/13/22 14:59 Not Given Q4HRT NKECHI Albuterol/Ipratropium 3 ml 08/15/22 13:06 08/16/22 13:02 Ipratropium/Albuterol Sulfate 3 Ml Ampul.[facility] 09/14/22 12:59 3 ml Q6HRT NKECHI Administration Allopurinol 300 mg 08/14/22 15:00 08/16/22 09:18 Allopurinol 300 Mg Tablet PO 09/13/22 14:59 300 mg DAILY NKECHI Administration Amlodipine Besylate 2.5 mg 08/14/22 15:00 08/16/22 09:17 Amlodipine Besylate 5 Mg Tablet PO 09/13/22 14:59 2.5 mg DAILY NKECHI Administration Apixaban 5 mg 08/14/22 15:00 08/16/22 09:18 Apixaban 2.5 Mg Tablet PO 09/13/22 14:59 5 mg DAILY NKECHI Administration Ascorbic Acid 500 mg 08/14/22 15:00 08/16/22 09:18 Ascorbic Acid 500 Mg Tablet PO 09/13/22 14:59 500 mg DAILY NKECHI Administration Methylprednisolone Sodium 0 mg 08/14/22 10:11 08/14/22 11:01 Succinate 125 mg/ Sterile IV 08/14/22 10:12 125 mg Water 2 ml STAT ONE Administration Methylprednisolone Sodium 0 mg 08/14/22 18:00 08/15/22 12:36 Succinate 60 mg/ Sterile Water IV 09/13/22 17:59 60 mg 2 ml Q6HT NKECHI Administration Methylprednisolone Sodium 0 mg 08/15/22 22:00 08/16/22 09:19 Succinate 60 mg/ Sterile Water IV 09/14/22 21:59 60 mg 2 ml Q12HT NKECHI Administration Diphenhydramine HCl 50 mg 08/14/22 15:00 08/16/22 09:18 Diphenhydramine Hcl 25 Mg Capsule PO 09/13/22 14:59 50 mg DAILY NKECHI Administration Diphenhydramine HCl 25 mg 08/14/22 22:00 08/15/22 22:03 Diphenhydramine Hcl 25 Mg Capsule PO 09/13/22 21:59 25 mg HS NKECHI Administration Furosemide 40 mg 08/14/22 17:00 08/16/22 09:17 Furosemide 40 Mg Tablet PO 09/13/22 16:59 40 mg BID DIURETIC NKECHI Administration Ceftriaxone Sodium/Dextrose 2 g in 50 mls @ 100 mls/hr 08/14/22 11:50 08/14/22 12:33 Rocephin 2 Gm-D5w 50ml Bag IV 08/14/22 12:19 Infused STAT STA Infusion Azithromycin / Sodium Chloride 250 mls @ 125 mls/hr 08/14/22 11:50 IV 08/14/22 13:49 STAT ONE Ceftriaxone Sodium/Dextrose Confirm 08/14/22 11:58 Rocephin 2 Gm-D5w 50ml Bag Administered 08/14/22 11:59 Dose 2 g in 50 mls @ ud IV .STK-MED ONE Ceftriaxone Sodium/Dextrose 1 g in 50 mls @ 100 mls/hr 08/15/22 10:00 08/16/22 09:18 Rocephin 1 Gm-D5w 50 Ml Bag IV 08/18/22 09:59 100 mls/hr Q24H10 NKECHI Administration Azithromycin 500 mg in 250 mls @ 250 mls/hr 08/14/22 13:30 08/16/22 09:18 Zithromax 500 Mg/ 250 Ml Nacl Premix IV 09/13/22 13:29 250 mls/hr Q24H10 NKECHI Administration Insulin Human Lispro 0 unit 08/14/22 16:20 08/15/22 22:21 Insulin Lispro 1 Unit SQ 09/13/22 16:19 4 unit UD PRN Administration HYPERGLYCEMIA Levothyroxine Sodium 25 mcg 08/15/22 10:00 Levothyroxine Sodium 25 Mcg Tablet PO 09/14/22 09:59 DAILY NKECHI Levothyroxine Sodium 224 mcg 08/14/22 15:00 08/16/22 09:19 Levothyroxine Sodium 112 Mcg Tablet PO 09/13/22 14:59 224 mcg DAILY NKECHI Administration Magnesium Oxide 400 mg 08/14/22 15:00 08/16/22 09:19 Magnesium Oxide 400 Mg Tablet PO 09/13/22 14:59 400 mg BID NKECHI Administration Metformin HCl 500 mg 08/14/22 17:00 08/16/22 09:18 Metformin Hcl 500 Mg Tablet PO 09/13/22 16:59 500 mg BIDWM NKECHI Administration Methylprednisolone Sodium Succinate Confirm 08/14/22 11:00 Methylprednis Sod Succ 125 Mg/2 Ml Vial Administered 08/14/22 11:01 Dose 125 mg .ROUTE .STK-MED ONE Metoprolol Succinate Confirm 08/14/22 14:00 Metoprolol Succinate 50 Mg Tablet.Sa Administered 08/14/22 14:01 Dose 50 mg PO .STK-MED ONE Metoprolol Succinate 50 mg 08/14/22 15:00 08/16/22 09:18 Metoprolol Succinate 50 Mg Tablet.Sa PO 09/13/22 14:59 50 mg DAILY NKECHI Administration Multivitamins 1 tab 08/15/22 10:00 08/16/22 09:18 Vitamin B Complex With Vit. C Tablet PO 09/14/22 09:59 1 tab DAILY NKECHI Administration Non-Formulary Medication 200 mcg 08/15/22 10:00 Levothyroxine Sodium [Synthroid] PO 09/14/22 09:59 DAILY NKECHI Non-Formulary Medication 1 tab 08/14/22 22:00 Acetaminophen/Diphenhydramine [Tylenol Pm Exstr 500-25mg Cplt] PO 09/13/22 21:59 HS NKECHI Pantoprazole Sodium 40 mg 08/14/22 15:00 08/16/22 09:17 Protonix (Pantoprazole) 40 Mg Tablet PO 09/13/22 14:59 40 mg DAILY NKECHI Administration Potassium Chloride 10 meq 08/14/22 15:00 08/16/22 09:18 Potassium Chloride Tab 10 Meq Tab PO 09/13/22 14:59 10 meq DAILY NKECHI Administration Sterile Water Confirm 08/14/22 10:59 Water For Injection,Sterile 10 Ml Vial Administered 08/14/22 11:00 Dose 10 ml IJ .STK-MED ONE Tamsulosin HCl 0.4 mg 08/14/22 15:00 08/16/22 09:17 Tamsulosin Hcl 0.4 Mg Cap PO 09/13/22 14:59 0.4 mg DAILY NKECHI Administration Throat Lozenges 15 mg 08/15/22 12:21 Benzocaine/Menthol 15 Mg Lozenge - Cepacol PO 09/14/22 12:20 PRN PRN sorethroat Zinc Gluconate 50 mg 08/14/22 15:00 08/16/22 09:17 Zinc Gluconate 50 Mg Tablet PO 09/13/22 14:59 50 mg DAILY NKECHI Administration Intake & Output (Last 24 hours) 08/16/22 08/17/22 08/18/22 08/19/22 11:59 11:59 11:59 11:59 Intake Total 1000 560 Balance 1000 560 Weight 80 kg Microbiology Results (Last 24 hours) 08/14/22 10:24 Blood Blood Culture Gram Stain - Final Not Reportable 08/14/22 10:24 Blood Blood Culture - Final NO GROWTH 08/14/22 10:30 Blood Blood Culture Gram Stain - Final Not Reportable 08/14/22 10:30 Blood Blood Culture - Final NO GROWTH Patient Care Notes (Last 24 hours) 08/18/22 12:28 Case Management Note by Gaby Ludwig [facility] NOTIFIED PATIENT DCD HOME Thursday08/16/22. 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
== END 2022-08-16 16:33 | disposition home health service (06) ==
LOC: ED 09:54 → MED SURG 12:50
PROVIDERS: ADMIT General Practice; ATTEND General Practice
DX: J44.1 Chronic obstructive pulmonary disease with (acute) exacerbation (principal); R53.1 Weakness; E87.1 Hypo-osmolality and hyponatremia; E11.22 Type 2 diabetes mellitus with diabetic chronic kidney disease; I12.9 Hypertensive chronic kidney disease with stage 1 through stage 4 chronic kidney disease, or unspecified chronic kidney disease; N18.30 Chronic kidney disease, stage 3 unspecified; E11.40 Type 2 diabetes mellitus with diabetic neuropathy, unspecified; L89.152 Pressure ulcer of sacral region, stage 2; E03.9 Hypothyroidism, unspecified; Z85.828 Personal history of other malignant neoplasm of skin; Z20.828 Contact with and (suspected) exposure to other viral communicable diseases; Z93.3 Colostomy status; Z79.899 Other long term (current) drug therapy
CPT/HCPCS: 0241U; 36000; 36415; 71045; 80048; 80053; 82947; 83880; 84484; 85025; 85027; 87040; 93005; 93041; 93268; 94640; 94760; 94762; 96365; 96374; 99285; G0378; J0456; J0696; J1817; J2930; A9270-GY

== ENCOUNTER 2022-08-19 21:06 | Emergency (ER) | payer MEDICARE ==
[2022-08-19 23:00] LABS: Basophil (Absolute #) 0.06 x10^3/uL (0-0.4); Eosinophil % 0.1 % (0.00-5.0); Eosinophil (Absolute #) 0.01 x10^3/uL (0-0.5); Hematocrit 34.7 % (35-47); Hemoglobin 11.3 g/dL (12.0-16.0); Lymphocyte (Absolute #) 1.48 x10^3/uL (1.0-4.6); Lymphocytes % 12.7 % (24.0-44.0); Mean Cell Volume 91.6 fL (78-100); Mean Corpuscular Hemoglobin 29.8 pg (26-32); Mean Corpuscular Hgb Concent. 32.6 g/dL (32-36); Mean Platelet Volume 9.7 fL (7.5-11.0); Monocyte (Absolute #) 0.75 x10^3/uL (0.0-1.3); Monocytes % 6.5 % (0.0-12.0); Neutrophil % 71.4 % (36.0-66.0); Platelet Count 215 x10^3/uL (150-450); Red Blood Count 3.79 x10^6/uL (4.1-5.4); Red Cell Distribution Width 15.1 % (11.5-14.0); White Blood Count 11.6 x10^3/uL (4.0-10.5)
[2022-08-19 23:38] LABS: ALBUMIN 3.7 g/dL (3.5-5.0); ANION GAP 10.9 MEQ/L (5-15); BILIRUBIN,TOTAL 0.4 mg/dL (0.2-1.3); Calcium 9.1 mg/dL (8.4-10.2); Creatinine 1 1.06 mg/dL (0.52-1.04); EST GLOMERULAR FILTRATION RATE 52.6 ML/MIN; MAGNESIUM 1.9 mg/dL (1.6-2.3); Total Protein 6.6 g/dL (6.3-8.2)
--- NOTE | 2022-08-20 00:22 | ERPHSYRPT ---
- History of Present Illness Time Seen by Provider: 08/19/22 22:35 Source: patient Exam Limitations: no limitations Patient Subjective Stated Complaint: pt states "My stoma is swollen. My legs are swollen. I was just here on Thursday." Triage Nursing Assessment: pt came into the er via wheelchair; pt is [employer]; pt is axo x3; c/o swelling; pt denies pain; abd is round, soft; stoma present to LUQ; stoma is red, swollen; edema present to BLE 2+; hypertension Physician History: Patient is a 82-year-old white female who presents with a complaint of swollen hands and legs. She also reports she has been diagnosed with CHF she has a colostomy which looks somewhat edematous but is functioning. She takes Lasix 40 mg twice a day. She was recently in the hospital. She sees nephrology and Dr. Minaya. Timing/Duration: yesterday Severity: mild Associated Symptoms: denies symptoms Allergies/Adverse Reactions: ofloxacin [From Floxin] Allergy (Verified 08/14/22 10:04) Sulfa (Sulfonamide Antibiotics) [Sulfa(Sulfonamide Antibiotics)] Allergy (Verified 08/14/22 10:04) Home Medications: Allopurinol 300 mg [Zyloprim 300 mg] 300 mg PO DAILY 11/30/16 [History] Apixaban [Eliquis] 5 mg PO DAILY 11/30/16 [History] Levothyroxine Sodium [Synthroid] 200 mcg PO DAILY 11/30/16 [History] Magnesium Oxide 400 mg [Mag-Ox 400] 400 mg PO BID 11/30/16 [History] Vitamin B Complex [Super B-50 Complex] 1 cap PO DAILY 05/21/17 [History] Metformin HCl 500 mg PO BID 04/24/18 [History] Metoprolol Succinate 50 mg PO DAILY 09/05/20 [History] Pantoprazole Sodium [Protonix] 40 mg PO DAILY 08/19/21 [History] Acetaminophen/Diphenhydramine [Tylenol Pm Exstr 500-25Mg Cplt] 1 tab PO HS 09/18/21 [History] Albuterol Sulfate [Proair Hfa] 2 puff IH Q6H PRN 09/18/21 [History] Amlodipine Besylate 2.5 mg PO DAILY 09/18/21 [History] Furosemide 40 mg [Lasix 40 MG] 40 mg PO BID 09/18/21 [History] Ascorbic Acid 500 mg [Vitamin C 500 MG] 500 mg PO DAILY 04/19/22 [History] Diphenhydramine HCl [Benadryl Allergy] 50 mg PO DAILY 04/19/22 [History] Potassium Chloride 10 meq PO DAILY 04/19/22 [History] Tamsulosin HCl 0.4 mg [Flomax 0.4 MG] 0.4 mg PO DAILY 04/19/22 [History] Zinc 50 mg PO DAILY 04/19/22 [History] Levothyroxine Sodium 25 Mcg [Synthroid 25 Mcg] 25 mcg PO DAILY 05/02/22 [History] Hydrocodone/Acetaminophen [Hydrocodone-Acetamin 10-325 mg] 1 tab PO Q6-8HPRN PRN 08/14/22 [History] Hx Tetanus, Diphtheria Vaccination/Date Given: Yes Hx Influenza Vaccination/Date Given: Yes Hx Pneumococcal Vaccination/Date Given: Yes Travel Risk - International Travel Have you traveled outside of the country in past 3 weeks: No - Coronavirus Screening Are you exhibiting any of the following symptoms?: No - Vaccine Status Have you recieved a Covid-19 vaccination: Yes [employer]: Unknown - Vaccination Dates Dates if Unknown: 2020 - Review of Systems Constitutional: No Fever, No Chills Eyes: No Symptoms Ears, Nose, & Throat: No Symptoms Respiratory: No Cough, No Dyspnea Cardiac: Edema, No Chest Pain, No Syncope Abdominal/Gastrointestinal: No Abdominal Pain, No Nausea, No Vomiting, No Diarrhea Genitourinary Symptoms: No Dysuria Musculoskeletal: No Back Pain, No Neck Pain Skin: No Rash Neurological: No Dizziness, No Focal Weakness, No Sensory Changes Psychological: No Symptoms Endocrine: No Symptoms All Other Systems: Reviewed and Negative - Past Medical History Pertinent Past Medical History: Yes Neurological History: Peripheral Neuropathy ENT History: No Pertinent History Cardiac History: Hypertension Respiratory History: COPD Endocrine Medical History: Diabetes Type II, Hypothyroidism Musculoskeletal History: Arthritis GI Medical History: Diverticulitis, Diverticulosis, Hemorrhoids, Hernia History: Renal Disease Psycho-Social History: No Pertinent History Female Reproductive Disorders: No Pertinent History Other Medical History: PE, ARRYTHMIA, RENAL DZ, DDD, RA, OA, MYELODSYPLASTIC SYNDROME. PSH: CARDIAC CATH, HYSTERECTOMY, LUMPECTOMY, BASAL AND SQUAMOUS CELL CA. - Past Surgical History Past Surgical History: Yes Neuro Surgical History: No Pertinent History Cardiac: Cardiac Catheterization Respiratory: No Pertinent History Gastrointestinal: No Pertinent History Genitourinary: No Pertinent History Musculoskeletal: No Pertinent History Female Surgical History: Hysterectomy, Lumpectomy Other Surgical History: breast tumor removed, tumor removed from back benign, 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, cauterization due to intestinal bleed - Social History Smoking Status: Never smoker Exposure to second hand smoke: No Drug Use: none Patient Lives Alone: No Significant Family History: no pertinent family hx - Nursing Vital Signs Nursing Vital Signs: Initial Vital Signs Pulse Rate 107 H 08/19/22 22:24 Respiratory Rate 18 08/19/22 22:24 Blood Pressure 201/95 08/19/22 22:24 O2 Sat by Pulse Oximetry 98 08/19/22 22:24 Pain Scale Pain Intensity 0 - Physical Exam General Appearance: no apparent distress, alert Eye Exam: PERRL/EOMI, eyes nml inspection Ears, Nose, Throat Exam: normal ENT inspection, TMs normal, pharynx normal, moist mucous membranes Neck Exam: normal inspection, non-tender, supple, full range of motion Respiratory Exam: normal breath sounds, lungs clear, No respiratory distress Cardiovascular Exam: regular rate/rhythm, normal heart sounds, normal peripheral pulses Gastrointestinal/Abdomen Exam: soft, normal bowel sounds, other (Patient has a colostomy which looks somewhat edematous), No tenderness, No mass Back Exam: normal inspection, normal range of motion, No CVA tenderness, No vertebral tenderness Extremity Exam: normal inspection, normal range of motion, pelvis stable, pedal edema Neurologic Exam: alert, oriented x 3, cooperative, normal mood/affect, nml cerebellar function, nml station & gait, sensation nml, No motor deficits Skin Exam: normal color, warm, dry, No rash Lymphatic Exam: No adenopathy SpO2: 97 - Course Nursing assessment & vital signs reviewed: Yes EKG Interpreted by Me: RATE (94), Sinus Rhythm, Other (Left anterior fascicular block nonspecific ST-T wave changes poor R wave progression) Ordered Tests: Active Orders 24 hr Category Date Time Status EKG-ER Only STAT Care 08/19/22 22:31 Active CHEST 1 VIEW (PORTABLE) Stat Exams 08/19/22 22:31 Taken CBC W DIFF Stat Lab 08/19/22 22:50 Completed CMP Stat Lab 08/19/22 22:50 Completed Lactic Acid Stat Lab 08/19/22 22:50 Completed MAGNESIUM Stat Lab 08/19/22 22:50 Completed NT PRO BNP Stat Lab 08/19/22 22:50 Completed TROPONIN Q4H Lab 08/19/22 22:50 Completed TROPONIN Q4H Lab 08/20/22 02:45 Ordered TROPONIN Q4H Lab 08/20/22 06:45 Ordered UA W/RFX CULTURE Stat Lab 08/19/22 Ordered Lab/Rad Data: Laboratory Result Diagrams 08/19/22 22:50 08/19/22 22:50 Laboratory Results 08/19/22 08/19/22 08/19/22 Range/Units 22:50 22:50 22:50 WBC (4.0-10.5) x10^3/uL RBC (4.1-5.4) x10^6/uL Hgb (12.0-16.0) g/dL Hct (35-47) % MCV (78-100) fL MCH (26-32) pg MCHC (32-36) g/dL RDW (11.5-14.0) % Plt Count (150-450) x10^3/uL MPV (7.5-11.0) fL Gran % (36.0-66.0) % Immature Gran % (Auto) (0.00-0.4) % Nucleat RBC Rel Count (0.00-0.1) % Eos # (Auto) (0-0.5) x10^3/uL Immature Gran # (Auto) (0.00-0.03) x10^3u/L Absolute Lymphs (auto) (1.0-4.6) x10^3/uL Absolute Monos (auto) (0.0-1.3) x10^3/uL Absolute Nucleated RBC (0.00-0.01) x10^3u/L Lymphocytes % (24.0-44.0) % Monocytes % (0.0-12.0) % Eosinophils % (0.00-5.0) % Basophils % (0.0-0.4) % Absolute Granulocytes (1.4-6.9) x10^3/uL Basophils # (0-0.4) x10^3/uL Sodium 132 L (137-145) mmol/L Potassium 4.0 (3.5-5.1) mmol/L Chloride 98 (98-107) mmol/L Carbon Dioxide 26 (22-30) mmol/L Anion Gap 10.9 (5-15) MEQ/L BUN 35 H (7-17) mg/dL Creatinine 1.06 H (0.52-1.04) mg/dL Estimated GFR 52.6 ML/MIN Glucose 214 H (74-106) mg/dL Lactic Acid 2.9 H (0.4-2.0) Calcium 9.1 (8.4-10.2) mg/dL Magnesium 1.9 (1.6-2.3) mg/dL Total Bilirubin 0.40 (0.2-1.3) mg/dL AST 32 (14-36) U/L ALT 32 (0-35) U/L Alkaline Phosphatase 123 (38-126) U/L Troponin I < 0.012 (0.000-0.034) ng/mL NT-Pro-B Natriuret Pep 1490 (0-1800) pg/mL Serum Total Protein 6.6 (6.3-8.2) g/dL Albumin 3.7 (3.5-5.0) g/dL 08/19/22 Range/Units 22:50 WBC 11.6 H (4.0-10.5) x10^3/uL RBC 3.79 L (4.1-5.4) x10^6/uL Hgb 11.3 L (12.0-16.0) g/dL Hct 34.7 L (35-47) % MCV 91.6 (78-100) fL MCH 29.8 (26-32) pg MCHC 32.6 (32-36) g/dL RDW 15.1 H (11.5-14.0) % Plt Count 215 (150-450) x10^3/uL MPV 9.7 (7.5-11.0) fL Gran % 71.4 H (36.0-66.0) % Immature Gran % (Auto) 8.8 H (0.00-0.4) % Nucleat RBC Rel Count 0.2 H (0.00-0.1) % Eos # (Auto) 0.01 (0-0.5) x10^3/uL Immature Gran # (Auto) 1.02 H (0.00-0.03) x10^3u/L Absolute Lymphs (auto) 1.48 (1.0-4.6) x10^3/uL Absolute Monos (auto) 0.75 (0.0-1.3) x10^3/uL Absolute Nucleated RBC 0.02 H (0.00-0.01) x10^3u/L Lymphocytes % 12.7 L (24.0-44.0) % Monocytes % 6.5 (0.0-12.0) % Eosinophils % 0.1 (0.00-5.0) % Basophils % 0.5 (0.0-0.4) % Absolute Granulocytes 8.30 H (1.4-6.9) x10^3/uL Basophils # 0.06 (0-0.4) x10^3/uL Sodium (137-145) mmol/L Potassium (3.5-5.1) mmol/L Chloride (98-107) mmol/L Carbon Dioxide (22-30) mmol/L Anion Gap (5-15) MEQ/L BUN (7-17) mg/dL Creatinine (0.52-1.04) mg/dL Estimated GFR ML/MIN Glucose (74-106) mg/dL Lactic Acid (0.4-2.0) Calcium (8.4-10.2) mg/dL Magnesium (1.6-2.3) mg/dL Total Bilirubin (0.2-1.3) mg/dL AST (14-36) U/L ALT (0-35) U/L Alkaline Phosphatase (38-126) U/L Troponin I (0.000-0.034) ng/mL NT-Pro-B Natriuret Pep (0-1800) pg/mL Serum Total Protein (6.3-8.2) g/dL Albumin (3.5-5.0) g/dL - Progress Progress: unchanged - Departure Departure Disposition: Home Clinical Impression: Peripheral edema, CRF (chronic renal failure) Condition: Stable Critical Care Time: No Referrals: TRINH MINAYA MD [Primary Care Provider] - Follow up/PCP as directed Instructions: Dependent Edema (DC) Prescriptions: Bumetanide 1 mg [Bumex 1 mg] 2 mg PO BID 15 Days #30 tablet
[2022-08-20 01:07] VITALS: BP 178/81; PULSE 88; O2SAT 97
--- NOTE | 2022-08-20 09:04 | XRAY ---
Indication: Hand and leg swelling. CHF. Comparison: August 14, 2022 Portable chest now demonstrates minimal right costophrenic angle subsegmental atelectasis/scarring. Stable tiny right mid lung calcified granuloma. No focal infiltrate, consolidation, or large effusion. Heart not enlarged for AP portable technique. Impression: Continued nonacute chest with chronic features.
== END 2022-08-20 01:07 | disposition home or self-care (01) ==
LOC: ED 21:06
DX: R60.0 Localized edema (principal); I13.0 Hypertensive heart and chronic kidney disease with heart failure and stage 1 through stage 4 chronic kidney disease, or unspecified chronic kidney disease; E11.22 Type 2 diabetes mellitus with diabetic chronic kidney disease; N18.9 Chronic kidney disease, unspecified; I50.9 Heart failure, unspecified; J44.9 Chronic obstructive pulmonary disease, unspecified; Z79.01 Long term (current) use of anticoagulants; Z79.891 Long term (current) use of opiate analgesic; Z79.899 Other long term (current) drug therapy; Z93.3 Colostomy status
CPT/HCPCS: 36415; 71045; 80053; 83605; 83735; 83880; 84484; 85025; 93005; 99283

== ENCOUNTER 2022-11-21 06:45 | Observation (INO) | payer MEDICARE, SELFPAY ==
[2022-11-21 07:52] LABS: Absolute Neutrophil Ct (ANC) 7.43 x10^3/uL (1.4-6.9); Basophil (Absolute #) 0.05 x10^3/uL (0-0.4); Hematocrit 40.3 % (35-47); Hemoglobin 12.7 g/dL (12.0-16.0); Lymphocyte (Absolute #) 1.74 x10^3/uL (1.0-4.6); Lymphocytes % 17.4 % (24.0-44.0); Mean Cell Volume 91.2 fL (78-100); Mean Corpuscular Hemoglobin 28.7 pg (26-32); Mean Corpuscular Hgb Concent. 31.5 g/dL (32-36); Mean Platelet Volume 10.5 fL (7.5-11.0); Monocyte (Absolute #) 0.42 x10^3/uL (0.0-1.3); Monocytes % 4.2 % (0.0-12.0); Neutrophil % 74.5 % (36.0-66.0); Platelet Count 211 x10^3/uL (150-450); Red Blood Count 4.42 x10^6/uL (4.1-5.4); Red Cell Distribution Width 15.7 % (11.5-14.0)
--- NOTE | 2022-11-21 08:00 | ERPHSYRPT ---
- History of Present Illness Source: patient Exam Limitations: other (Poor historian) Patient Subjective Stated Complaint: pt daughter states that pt isnauseated when she woke up this morning, took her bp at 0500 and 200/97, HR was 114 at that time. pt daughter brought her in after giving her bp meds Metoprolol and amlodipine, bp was still elevated at 184/97 184 HR Triage Nursing Assessment: pt is alert and oriented, laying in bed, daughter at bedside, bp is 173/98 at this time Physician History: 82 yo WF who is a very poor historian presents w elevated BP. 2nd BP in ER is 137/71. Pt also states that she was nauseated and has had some heartburn but denies vomiting/diarrhea/chest pain/fever/focal weakness/headache/dysuria/hematuria. Timing/Duration: today Severity: mild Modifying Factors: Improves With: nothing Associated Symptoms: nausea, heartburn Allergies/Adverse Reactions: amoxicillin Allergy (Verified 11/21/22 07:03) levofloxacin [From Levaquin] Allergy (Verified 11/21/22 07:03) ofloxacin [From Floxin] Allergy (Verified 08/14/22 10:04) Sulfa (Sulfonamide Antibiotics) [Sulfa(Sulfonamide Antibiotics)] Allergy (Verified 08/14/22 10:04) Home Medications: Allopurinol 300 mg [Zyloprim 300 mg] 300 mg PO DAILY 11/30/16 [History] Apixaban [Eliquis] 5 mg PO DAILY 11/30/16 [History] Levothyroxine Sodium [Synthroid] 200 mcg PO DAILY 11/30/16 [History] Magnesium Oxide 400 mg [Mag-Ox 400] 400 mg PO BID 11/30/16 [History] Vitamin B Complex [Super B-50 Complex] 1 cap PO DAILY 05/21/17 [History] Metformin HCl 500 mg PO BID 04/24/18 [History] Metoprolol Succinate 50 mg PO DAILY 09/05/20 [History] Pantoprazole Sodium [Protonix] 40 mg PO DAILY 08/19/21 [History] Acetaminophen/Diphenhydramine [Tylenol Pm Exstr 500-25Mg Cplt] 1 tab PO HS 09/18/21 [History] Albuterol Sulfate [Proair Hfa] 2 puff IH Q6H PRN 09/18/21 [History] Amlodipine Besylate 2.5 mg PO DAILY 09/18/21 [History] Furosemide 40 mg [Lasix 40 MG] 40 mg PO BID 09/18/21 [History] Ascorbic Acid 500 mg [Vitamin C 500 MG] 500 mg PO DAILY 04/19/22 [History] Diphenhydramine HCl [Benadryl Allergy] 50 mg PO DAILY 04/19/22 [History] Potassium Chloride 10 meq PO DAILY 04/19/22 [History] Tamsulosin HCl 0.4 mg [Flomax 0.4 MG] 0.4 mg PO DAILY 04/19/22 [History] Zinc 50 mg PO DAILY 04/19/22 [History] Levothyroxine Sodium 25 Mcg [Synthroid 25 Mcg] 25 mcg PO DAILY 05/02/22 [H istory] Hydrocodone/Acetaminophen [Hydrocodone-Acetamin 10-325 mg] 1 tab PO Q6-8HPRN PRN 08/14/22 [History] Hx Tetanus, Diphtheria Vaccination/Date Given: Yes Hx Influenza Vaccination/Date Given: Yes Hx Pneumococcal Vaccination/Date Given: Yes Travel Risk - International Travel Have you traveled outside of the country in past 3 weeks: No - Coronavirus Screening Are you exhibiting any of the following symptoms?: No Close contact with a COVID-19 positive Pt in past 14-21 Days: No - Vaccine Status Have you recieved a Covid-19 vaccination: Yes Trade Specialist: Unknown - Vaccination Dates Dates if Unknown: unknown - Review of Systems Constitutional: No Symptoms Eyes: No Symptoms Ears, Nose, & Throat: No Symptoms Respiratory: No Symptoms Cardiac: No Symptoms Abdominal/Gastrointestinal: No Symptoms, Nausea Genitourinary Symptoms: No Symptoms Musculoskeletal: No Symptoms Skin: No Symptoms Neurological: No Symptoms Psychological: No Symptoms Endocrine: No Symptoms Hematologic/Lymphatic: No Symptoms Immunological/Allergic: No Symptoms - Past Medical History Pertinent Past Medical History: Yes Neurological History: Peripheral Neuropathy ENT History: No Pertinent History Cardiac History: Hypertension Respiratory History: COPD Endocrine Medical History: Diabetes Type II, Hypothyroidism Musculoskeletal History: Arthritis GI Medical History: Diverticulitis, Diverticulosis, Hemorrhoids, Hernia History: Renal Disease Psycho-Social History: No Pertinent History Female Reproductive Disorders: No Pertinent History Other Medical History: PE, ARRYTHMIA, RENAL DZ, DDD, RA, OA, MYELODSYPLASTIC SYNDROME. PSH: CARDIAC CATH, HYSTERECTOMY, LUMPECTOMY, BASAL AND SQUAMOUS CELL CA. - Past Surgical History Past Surgical History: Yes Neuro Surgical History: No Pertinent History Cardiac: Cardiac Catheterization Respiratory: No Pertinent History Gastrointestinal: No Pertinent History Genitourinary: No Pertinent History Musculoskeletal: No Pertinent History Female Surgical History: Hysterectomy, Lumpectomy Other Surgical History: breast tumor removed, tumor removed from back benign, 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, cauterization due to intestinal bleed - Social History Smoking Status: Never smoker Exposure to second hand smoke: No Drug Use: none Patient Lives Alone: No Significant Family History: no pertinent family hx - Nursing Vital Signs Nursing Vital Signs: Initial Vital Signs Temperature 98.7 F 11/21/22 06:49 Pulse Rate 96 H 11/21/22 06:49 Respiratory Rate 18 11/21/22 06:49 Blood Pressure 173/98 11/21/22 06:49 O2 Sat by Pulse Oximetry 99 11/21/22 06:49 Pain Scale Pain Intensity 4 Hypertensive - Physical Exam General Appearance: no apparent distress Eye Exam: PERRL/EOMI, eyes nml inspection Ears, Nose, Throat Exam: normal ENT inspection, TMs normal, pharynx normal, moist mucous membranes Neck Exam: normal inspection, non-tender, supple, full range of motion Respiratory Exam: normal breath sounds, lungs clear, airway intact Cardiovascular Exam: regular rate/rhythm, normal heart sounds, normal peripheral pulses, capillary refill <2 sec, No murmur Gastrointestinal/Abdomen Exam: soft, normal bowel sounds, No tenderness Back Exam: normal inspection, normal range of motion Extremity Exam: normal inspection, normal range of motion Neurologic Exam: alert, oriented x 3, cooperative, contract administrative assistant II-XII nml as tested, normal mood/affect, nml station & gait, sensation nml Skin Exam: normal color, warm, dry Lymphatic Exam: No adenopathy SpO2 Interpretation: normal SpO2: 99 O2 Delivery: Room Air - Course Nursing assessment & vital signs reviewed: Yes EKG Interpreted by Me: RATE (NSR/IVCD/Prolonged QTc/Poor R wave progression/LAFB/No acute ST segment changes) - CT Exams Abdomen/Pelvis CT Interpretation: Discussed w/radiologist (Mildly fluid distended small bowel loops/ilieus vs enteritis) Ordered Tests: Active Orders 24 hr Category Date Time Status Code Status Order ROUTINE Care 11/21/22 12:35 Completed EKG-ER Only STAT Care 11/21/22 07:22 Completed Rojo [Catheter-[place] Rojo] STAT Care 11/21/22 08:37 Completed Clear Liquid Diet 11/21/22 Dinner Active ABDOMEN AND PELVIS W/0 CONTRAS [CT] Stat Exams 11/21/22 09:00 Completed CHEST 1 VIEW (PORTABLE) Stat Exams 11/21/22 07:22 Completed AMYLASE Stat Lab 11/21/22 07:45 Completed CBC W DIFF AM.LAB Lab 11/22/22 04:00 Ordered CBC W DIFF Stat Lab 11/21/22 07:22 Completed CMP AM.LAB Lab 11/22/22 04:00 Ordered CMP Stat Lab 11/21/22 07:45 Completed LIPASE Stat Lab 11/21/22 07:45 Completed Lactic Acid AM.LAB Lab 11/22/22 04:00 Ordered Lactic Acid Stat Lab 11/21/22 07:22 Completed Lactic Acid Stat Lab 11/21/22 09:57 Completed NT PRO BNP Stat Lab 11/21/22 07:45 Completed PROTIME WITH INR Stat Lab 11/21/22 07:45 Completed PTT Stat Lab 11/21/22 07:45 Completed TROPONIN Q4H Lab 11/21/22 07:45 Completed TROPONIN Q4H Lab 11/21/22 10:18 Completed TROPONIN Q4H Lab 11/21/22 15:30 Ordered UA W/RFX UR CULTURE Stat Lab 11/21/22 08:58 Completed Transfer Order Routine Transfer 11/21/22 Completed Medication Summary Generic Name Dose Route Start Last Admin Trade Name Freq PRN Reason Stop Dose Admin Sodium Chloride 1,000 mls @ 100 mls/hr 11/21/22 12:45 Sodium Chloride 0.9% 1000 Ml IV 12/21/22 12:44 .Q10H NKECHI Ondansetron HCl 4 mg 11/21/22 12:34 Ondansetron Hcl 4 Mg/2 Ml Vial IV 12/21/22 12:33 Q6H PRN PRN NAUSEA/VOMITING Pantoprazole Sodium 40 mg 11/21/22 14:00 Pantoprazole 40 Mg Vial IV 12/21/22 13:59 Q24H10 NKECHI Discontinued Medications Generic Name Dose Route Start Last Admin Trade Name Ximena PRN Reason Stop Dose Admin Sodium Chloride 1,000 mls @ 999 mls/hr 11/21/22 09:19 11/21/22 10:59 Sodium Chloride 0.9% 1000 Ml IV 11/21/22 10:19 50 mls/hr .Q1H1M STA Infusion Sodium Chloride Confirm 11/21/22 09:20 Sodium Chloride 0.9% 500 Ml Administered 11/21/22 09:21 Dose 500 mls @ ud IV .STK-MED ONE Sodium Chloride Confirm 11/21/22 09:21 Sodium Chloride 0.9% 1000 Ml Administered 11/21/22 09:22 Dose 1,000 mls @ ud .ROUTE .STK-MED ONE Ondansetron HCl 4 mg 11/21/22 09:59 11/21/22 10:01 Ondansetron Hcl 4 Mg/2 Ml Vial IV 11/21/22 10:00 4 mg STAT ONE Administration Ondansetron HCl Confirm 11/21/22 10:00 Ondansetron Hcl 4 Mg/2 Ml Vial Administered 11/21/22 10:01 Dose 4 mg .ROUTE .STK-MED ONE Lab/Rad Data: Laboratory Result Diagrams 11/21/22 07:22 11/21/22 07:45 Laboratory Results 11/21/22 11/21/22 11/21/22 Range/Units 10:18 09:57 08:58 WBC (4.0-10.5) x10^3/uL RBC (4.1-5.4) x10^6/uL Hgb (12.0-16.0) g/dL Hct (35-47) % MCV (78-100) fL MCH (26-32) pg MCHC (32-36) g/dL RDW (11.5-14.0) % Plt Count (150-450) x10^3/uL MPV (7.5-11.0) fL Gran % (36.0-66.0) % Immature Gran % (Auto) (0.00-0.4) % Nucleat RBC Rel Count (0.00-0.1) % Eos # (Auto) (0-0.5) x10^3/uL Immature Gran # (Auto) (0.00-0.03) x10^3u/L Absolute Lymphs (auto) (1.0-4.6) x10^3/uL Absolute Monos (auto) (0.0-1.3) x10^3/uL Absolute Nucleated RBC (0.00-0.01) x10^3u/L Lymphocytes % (24.0-44.0) % Monocytes % (0.0-12.0) % Eosinophils % (0.00-5.0) % Basophils % (0.0-0.4) % Absolute Granulocytes (1.4-6.9) x10^3/uL Basophils # (0-0.4) x10^3/uL PT (9.4-12.5) SECONDS INR (0.8-3.0) APTT (25.1-36.5) SECONDS Sodium (137-145) mmol/L Potassium (3.5-5.1) mmol/L Chloride (98-107) mmol/L Carbon Dioxide (22-30) mmol/L Anion Gap (5-15) MEQ/L BUN (7-17) mg/dL Creatinine (0.52-1.04) mg/dL Estimated GFR ML/MIN Glucose (74-106) mg/dL Lactic Acid 2.5 H (0.4-2.0) Calcium (8.4-10.2) mg/dL Total Bilirubin (0.2-1.3) mg/dL AST (14-36) U/L ALT (0-35) U/L Alkaline Phosphatase (38-126) U/L Troponin I < 0.012 (0.000-0.034) ng/mL NT-Pro-B Natriuret Pep (0-1800) pg/mL Serum Total Protein (6.3-8.2) g/dL Albumin (3.5-5.0) g/dL Amylase (30-110) U/L Lipase (23-300) U/L Urine Color Yellow (Yellow) Urine Appearance Clear (Clear) Urine pH 7.5 (4.6-8.0) Ur Specific [place] 1.010 (1.005-1.030) Urine Protein 100 A (Negative) Urine Glucose (UA) Negative (Negative) mg/dL Urine Ketones Negative (Negative) Urine Blood Negative (Negative) Urine Nitrite Negative (Negative) Urine Bilirubin Negative (Negative) Urine Urobilinogen 0.2 (0.2) mg/dL Ur Leukocyte Esterase Negative (Negative) U Hyaline Cast (Auto) NONE SEEN (0-2) /LPF Urine Microscopic RBC 0-2 (0-5) /HPF Urine Microscopic WBC 0-2 (0-5) /HPF Ur Epithelial Cells None Seen (None Seen) /HPF Urine Bacteria None Seen (None Seen) /HPF Urine Culture Reflexed NO (NO) Influenza Type A Ag (NEGATIVE) Influenza Type B Ag (NEGATIVE) RSV (PCR) (Negative) SARS-CoV-2 (PCR) (NEGATIVE) 11/21/22 11/21/22 11/21/22 Range/Units 07:45 07:45 07:45 WBC (4.0-10.5) x10^3/uL RBC (4.1-5.4) x10^6/uL Hgb (12.0-16.0) g/dL Hct (35-47) % MCV (78-100) fL MCH (26-32) pg MCHC (32-36) g/dL RDW (11.5-14.0) % Plt Count (150-450) x10^3/uL MPV (7.5-11.0) fL Gran % (36.0-66.0) % Immature Gran % (Auto) (0.00-0.4) % Nucleat RBC Rel Count (0.00-0.1) % Eos # (Auto) (0-0.5) x10^3/uL Immature Gran # (Auto) (0.00-0.03) x10^3u/L Absolute Lymphs (auto) (1.0-4.6) x10^3/uL Absolute Monos (auto) (0.0-1.3) x10^3/uL Absolute Nucleated RBC (0.00-0.01) x10^3u/L Lymphocytes % (24.0-44.0) % Monocytes % (0.0-12.0) % Eosinophils % (0.00-5.0) % Basophils % (0.0-0.4) % Absolute Granulocytes (1.4-6.9) x10^3/uL Basophils # (0-0.4) x10^3/uL PT 10.6 (9.4-12.5) SECONDS INR 1.00 (0.8-3.0) APTT 27.3 (25.1-36.5) SECONDS Sodium (137-145) mmol/L Potassium (3.5-5.1) mmol/L Chloride (98-107) mmol/L Carbon Dioxide (22-30) mmol/L Anion Gap (5-15) MEQ/L BUN (7-17) mg/dL Creatinine (0.52-1.04) mg/dL Estimated GFR ML/MIN Glucose (74-106) mg/dL Lactic Acid (0.4-2.0) Calcium (8.4-10.2) mg/dL Total Bilirubin (0.2-1.3) mg/dL AST (14-36) U/L ALT (0-35) U/L Alkaline Phosphatase (38-126) U/L Troponin I < 0.012 (0.000-0.034) ng/mL NT-Pro-B Natriuret Pep (0-1800) pg/mL Serum Total Protein (6.3-8.2) g/dL Albumin (3.5-5.0) g/dL Amylase (30-110) U/L Lipase (23-300) U/L Urine Color (Yellow) Urine Appearance (Clear) Urine pH (4.6-8.0) Ur Specific [place] (1.005-1.030) Urine Protein (Negative) Urine Glucose (UA) (Negative) mg/dL Urine Ketones (Negative) Urine Blood (Negative) Urine Nitrite (Negative) Urine Bilirubin (Negative) Urine Urobilinogen (0.2) mg/dL Ur Leukocyte Esterase (Negative) U Hyaline Cast (Auto) (0-2) /LPF Urine Microscopic RBC (0-5) /HPF Urine Microscopic WBC (0-5) /HPF Ur Epithelial Cells (None Seen) /HPF Urine Bacteria (None Seen) /HPF Urine Culture Reflexed (NO) Influenza Type A Ag NEGATIVE (NEGATIVE) Influenza Type B Ag NEGATIVE (NEGATIVE) RSV (PCR) NEGATIVE (Negative) SARS-CoV-2 (PCR) NEGATIVE (NEGATIVE) 11/21/22 11/21/22 11/21/22 Range/Units 07:45 07:22 07:22 WBC 10.0 (4.0-10.5) x10^3/uL RBC 4.42 (4.1-5.4) x10^6/uL Hgb 12.7 (12.0-16.0) g/dL Hct 40.3 (35-47) % MCV 91.2 (78-100) fL MCH 28.7 (26-32) pg MCHC 31.5 L (32-36) g/dL RDW 15.7 H (11.5-14.0) % Plt Count 211 (150-450) x10^3/uL MPV 10.5 (7.5-11.0) fL Gran % 74.5 H (36.0-66.0) % Immature Gran % (Auto) 0.4 (0.00-0.4) % Nucleat RBC Rel Count 0.0 (0.00-0.1) % Eos # (Auto) 0.30 (0-0.5) x10^3/uL Immature Gran # (Auto) 0.04 H (0.00-0.03) x10^3u/L Absolute Lymphs (auto) 1.74 (1.0-4.6) x10^3/uL Absolute Monos (auto) 0.42 (0.0-1.3) x10^3/uL Absolute Nucleated RBC 0.00 (0.00-0.01) x10^3u/L Lymphocytes % 17.4 L (24.0-44.0) % Monocytes % 4.2 (0.0-12.0) % Eosinophils % 3.0 (0.00-5.0) % Basophils % 0.5 (0.0-0.4) % Absolute Granulocytes 7.43 H (1.4-6.9) x10^3/uL Basophils # 0.05 (0-0.4) x10^3/uL PT (9.4-12.5) SECONDS INR (0.8-3.0) APTT (25.1-36.5) SECONDS Sodium 136 L (137-145) mmol/L Potassium 4.8 (3.5-5.1) mmol/L Chloride 100 (98-107) mmol/L Carbon Dioxide 30 (22-30) mmol/L Anion Gap 11.3 (5-15) MEQ/L BUN 14 (7-17) mg/dL Creatinine 1.15 H (0.52-1.04) mg/dL Estimated GFR 47.9 ML/MIN Glucose 166 H (74-106) mg/dL Lactic Acid 3.0 H (0.4-2.0) Calcium 10.0 (8.4-10.2) mg/dL Total Bilirubin 0.50 (0.2-1.3) mg/dL AST 29 (14-36) U/L ALT 16 (0-35) U/L Alkaline Phosphatase 116 (38-126) U/L Troponin I (0.000-0.034) ng/mL NT-Pro-B Natriuret Pep 3590 H (0-1800) pg/mL Serum Total Protein 7.2 (6.3-8.2) g/dL Albumin 4.0 (3.5-5.0) g/dL Amylase 66 (30-110) U/L Lipase 73 (23-300) U/L Urine Color (Yellow) Urine Appearance (Clear) Urine pH (4.6-8.0) Ur Specific [place] (1.005-1.030) Urine Protein (Negative) Urine Glucose (UA) (Negative) mg/dL Urine Ketones (Negative) Urine Blood (Negative) Urine Nitrite (Negative) Urine Bilirubin (Negative) Urine Urobilinogen (0.2) mg/dL Ur Leukocyte Esterase (Negative) U Hyaline Cast (Auto) (0-2) /LPF Urine Microscopic RBC (0-5) /HPF Urine Microscopic WBC (0-5) /HPF Ur Epithelial Cells (None Seen) /HPF Urine Bacteria (None Seen) /HPF Urine Culture Reflexed (NO) Influenza Type A Ag (NEGATIVE) Influenza Type B Ag (NEGATIVE) RSV (PCR) (Negative) SARS-CoV-2 (PCR) (NEGATIVE) - Progress Progress: improved Progress Note: 11/21/22 12:[address] Alvarez All labs reviewed Additional history per daughter 500ml IV NS bolus w decrease in lactate acid All labs/CT abdomen-pelvis results reviewed and shared w pt CXR read by ER physician before overread per Rad Pt w obs admit due to poor functional status/Enteritis vs ileus per CT/elevated lactic acid DNR per pt/daughter 11/21/22 12:38 Discussed with : Ana Will see patient in: hospital (observation) Counseled pt/family regarding: lab results, diagnosis, rad results - Departure Departure Disposition: Observation Clinical Impression: Enteritis Condition: Stable Critical Care Time: No
[2022-11-21 08:09] LABS: PROTIME 10.6 SECONDS (9.4-12.5); PTT 27.3 SECONDS (25.1-36.5)
[2022-11-21 08:19] LABS: ANION GAP 11.3 MEQ/L (5-15); BILIRUBIN,TOTAL 0.5 mg/dL (0.2-1.3); Creatinine 1 1.15 mg/dL (0.52-1.04); EST GLOMERULAR FILTRATION RATE 47.9 ML/MIN; Potassium 4.8 mmol/L (3.5-5.1); Total Protein 7.2 g/dL (6.3-8.2)
[2022-11-21 08:29] LABS: INFLUENZA A NEGATIVE (NEGATIVE); INFLUENZA B NEGATIVE (NEGATIVE); RESPIRATORY SYNCTIAL VIRUS NEGATIVE (Negative); SARS-CoV-2 Xpert Express NEGATIVE (NEGATIVE)
--- NOTE | 2022-11-21 09:01 | XRAY ---
Indication: Lethargy. Comparison: August 19, 2022. Portable chest unchanged again demonstrating minimal bibasilar subsegmental atelectasis/scarring and tiny right mid lung calcified granuloma. Heart not enlarged for AP portable technique. Bony thorax intact again with osteopenia, degenerative changes, and T12 kyphoplasty. Impression: Continued nonacute chest with chronic features.
[2022-11-21] MEDS ORDERED: Sodium Chloride 0.9% 1000 ML 1,000 ML IV STA (09:19)
[2022-11-21] MEDS ORDERED: Sodium Chloride 0.9% 500 ML 0 ML IV ONE (09:20)
[2022-11-21] MEDS ORDERED: Sodium Chloride 0.9% 1000 ML 1,000 ML ONE (09:21)
[2022-11-21 09:32] LABS: Appearance Clear (Clear); Bacteria None Seen /HPF (None Seen); Bilirubin Negative (Negative); Blood Negative (Negative); Epithelial Cells None Seen /HPF (None Seen); Glucose, Urine Negative (Negative); Hyaline Casts NONE SEEN /LPF (0-2); Ketones Negative (Negative); Leukocyte Esterase Negative (Negative); Nitrite Negative (Negative); Ph 7.5 (4.6-8.0); Protein,Urine Dip 100 (Negative); RBC 0-2 /HPF (0-5); Urobilinogen 0.2 mg/dL (0.2); WBC 0-2 /HPF (0-5)
[2022-11-21 09:36] LABS: ADD URINE CULTURE? NO (NO)
--- NOTE | 2022-11-21 09:49 | XRAY ---
Indication: Abdomen pain and nausea. Multiple contiguous axial images obtained through the abdomen and pelvis without contrast. Comparison: May 01, 2022 Lung bases clear. Heart again borderline enlarged. Noncontrasted stomach and bowel loops remain nonobstructed again with scattered colonic diverticulosis. Several small bowel loops are now mildly fluid distended with fluid leveling, ileus versus enteritis. Stable left midabdomen diverting colostomy. Rectal stump unremarkable. No free fluid/air. Gallbladder mildly distended less than before again without gallstones or biliary distention. Urinary bladder is now empty with new Rojo balloon catheter in situ. Stable bilateral renal cysts, tiny left adrenal adenoma, splenic calcified granulomas, and hysterectomy. Remaining liver, gallbladder, pancreas, spleen, adrenal glands, kidneys, and ureters are unremarkable for noncontrast exam. Again extensive scattered vascular calcifications without AAA. Osseous structures intact again with osteopenia, multilevel remote thoracolumbar compression fractures, and T12/L3/L5 vertebroplasty. Impression: 1. New mild fluid distended small bowel loops with fluid leveling, ileus versus enteritis. 2. Stable left diverting colostomy without complications, borderline cardiomegaly, colonic diverticulosis, bilateral renal cysts, left adrenal adenoma, extensive arteriosclerotic disease, and chronic bony findings.
[2022-11-21] MEDS ORDERED: Zofran 4 MG/2 ML VIAL IV ONE (09:59)
[2022-11-21] MEDS ORDERED: Zofran 4 MG/2 ML VIAL ONE (10:00)
[2022-11-21] MEDS ORDERED: Zofran 4 MG/2 ML VIAL IV PRN (12:34)
[2022-11-21] MEDS: PROTONIX 40 MG IV IV SCH (15:21)
[2022-11-21] MEDS: Sodium Chloride 0.9% 1000 ML 1,000 ML IV SCH (15:21)
[2022-11-21] MEDS ORDERED: VENTOLIN COMMON CANISTER IH PRN (17:19)
[2022-11-21] MEDS ORDERED: HUMALOG SQ PRN (17:46)
[2022-11-21] MEDS: Klor Con PO SCH (22:11)
[2022-11-21] MEDS: BENADRYL 25 MG CAPSULE PO SCH (22:11)
[2022-11-21] MEDS: TYLENOL EXTRA STRENGTH 500 MG PO SCH (22:11)
[2022-11-21] MEDS: ELIQUIS 2.5 MG TABLET PO SCH (22:11)
[2022-11-21] MEDS: BUMEX 1 MG PO SCH (22:12)
[2022-11-21] MEDS: Acidophilus TABLET PO SCH (22:12)
[2022-11-21] MEDS: VENTOLIN COMMON CANISTER IH SCH (22:57)
[2022-11-21] MEDS: HYDROCODONE-ACETAMIN 10-325 MG PO PRN (23:06)
[2022-11-22] MEDS: Sodium Chloride 0.9% 1000 ML 1,000 ML IV SCH ×4 (04:44→22:52)
[2022-11-22 06:30] LABS: Absolute Neutrophil Ct (ANC) 3.21 x10^3/uL (1.4-6.9); Basophil (Absolute #) 0.05 x10^3/uL (0-0.4); Eosinophil % 8.5 % (0.00-5.0); Eosinophil (Absolute #) 0.62 x10^3/uL (0-0.5); Hematocrit 32.8 % (35-47); Hemoglobin 10.3 g/dL (12.0-16.0); Lymphocyte (Absolute #) 2.96 x10^3/uL (1.0-4.6); Lymphocytes % 40.4 % (24.0-44.0); Mean Cell Volume 91.6 fL (78-100); Mean Corpuscular Hemoglobin 28.8 pg (26-32); Mean Corpuscular Hgb Concent. 31.4 g/dL (32-36); Mean Platelet Volume 9.2 fL (7.5-11.0); Monocyte (Absolute #) 0.46 x10^3/uL (0.0-1.3); Monocytes % 6.3 % (0.0-12.0); Neutrophil % 43.7 % (36.0-66.0); Platelet Count 159 x10^3/uL (150-450); Red Blood Count 3.58 x10^6/uL (4.1-5.4); Red Cell Distribution Width 15.7 % (11.5-14.0); White Blood Count 7.3 x10^3/uL (4.0-10.5)
[2022-11-22 06:54] LABS: ALBUMIN 2.9 g/dL (3.5-5.0); ANION GAP 4.2 MEQ/L (5-15); BILIRUBIN,TOTAL 0.4 mg/dL (0.2-1.3); Calcium 8.5 mg/dL (8.4-10.2); Creatinine 1 1.04 mg/dL (0.52-1.04); EST GLOMERULAR FILTRATION RATE 53.8 ML/MIN; Potassium 3.9 mmol/L (3.5-5.1); Total Protein 5.3 g/dL (6.3-8.2)
[2022-11-22] MEDS ORDERED: Glucophage 500 MG PO SCH (08:00)
[2022-11-22] MEDS: VENTOLIN COMMON CANISTER IH SCH ×2 (09:29→18:21)
[2022-11-22] MEDS: BUMEX 1 MG PO SCH ×2 (09:53→21:59)
[2022-11-22] MEDS: BENADRYL 25 MG CAPSULE PO SCH ×2 (09:54→21:59)
[2022-11-22] MEDS: Acidophilus TABLET PO SCH ×2 (09:54→21:59)
[2022-11-22] MEDS: MAG-OX 400 PO SCH (09:55)
[2022-11-22] MEDS: Vitamin C 500 MG PO SCH (09:56)
[2022-11-22] MEDS: SYNTHROID 100 MCG PO SCH (09:57)
[2022-11-22] MEDS: Klor Con PO SCH ×2 (09:57→22:00)
[2022-11-22] MEDS: ELIQUIS 2.5 MG TABLET PO SCH ×2 (09:57→22:00)
[2022-11-22] MEDS: NORVASC 5 MG PO SCH (09:58)
[2022-11-22] MEDS: PROTONIX 40 MG IV IV SCH (09:59)
[2022-11-22] MEDS: ZYLOPRIM 300 MG PO SCH (09:59)
[2022-11-22] MEDS ORDERED: NON-FORMULARY ITEM (Amlodipine Besylate [Amlodipine Besylate] 2.5 MG Tablet) PO SCH (10:00)
[2022-11-22] MEDS ORDERED: [UNRECOGNIZED DRUG - REMARK] PO SCH (10:00)
[2022-11-22] MEDS ORDERED: Lopressor 50 MG PO SCH (10:00)
[2022-11-22] MEDS ORDERED: LEVOTHYROXINE SODIUM 200 MCG PO SCH (10:00)
[2022-11-22] MEDS ORDERED: ELIQUIS 2.5 MG TABLET PO SCH (10:00)
[2022-11-22] MEDS ORDERED: NON-FORMULARY ITEM (Zinc [Zinc] 50 MG Tablet) PO SCH (10:00)
[2022-11-22] MEDS ORDERED: VITAMIN B COMPLEX PO SCH (10:00)
[2022-11-22] MEDS ORDERED: SYNTHROID 25 MCG PO SCH (10:00)
[2022-11-22] MEDS: HYDROCODONE-ACETAMIN 10-325 MG PO PRN ×2 (10:05→22:04)
[2022-11-22] MEDS: VITA-BEE WITH C PO SCH (11:40)
[2022-11-22] MEDS: Zinc Gluconate 50 MG PO SCH (11:40)
[2022-11-22] MEDS: Mucinex 600MG ER Tabs PO SCH ×2 (13:17→22:00)
--- NOTE | 2022-11-22 19:01 | PCM.HP ---
History of Present Illness - Chief Complaint Chief Complaint: illeus vs enteritis History of Present Illness: is a 82 year old female patient of Dr Walsh who is a very poor historian presents w elevated BP. 2nd BP in ER is 137/71. Pt also states that she was nauseated and has had some heartburn but denies vomiting/diarrhea/chest pain/fever/focal weakness/headache/dysuria/hematuria. ER evaluation revealed possible enteritis Patient is diabetic with CRF. and Hx Ileostomy due to di verticular dz. Medications & Allergies Home Medications: Home Medication List Allopurinol 300 mg [Zyloprim 300 mg] 300 mg PO DAILY 11/30/16 [History Confirmed 11/21/22] Apixaban [Eliquis] 5 mg PO BID 11/30/16 [History Confirmed 11/21/22] Levothyroxine Sodium [Synthroid] 200 mcg PO DAILY 11/30/16 [History Confirmed 11/21/22] Magnesium Oxide 400 mg [Mag-Ox 400] 250 mg PO DAILY 11/30/16 [History Confirmed 11/21/22] Vitamin B Complex [Super B-50 Complex] 1 cap PO DAILY 05/21/17 [History Confirmed 11/21/22] Metformin HCl 500 mg PO BID 04/24/18 [History Confirmed 11/21/22] Acetaminophen/Diphenhydramine [Tylenol Pm Exstr 500-25Mg Cplt] 1 tab PO HS 09/18/21 [History Confirmed 11/21/22] Albuterol Sulfate [Proair Hfa] 2 puff IH Q6H PRN 09/18/21 [History Confirmed 11/21/22] Amlodipine Besylate 2.5 mg PO DAILY 09/18/21 [History Confirmed 11/21/22] Furosemide 40 mg [Lasix 40 MG] 40 mg PO BID 09/18/21 [History Confirmed 11/21/22] Ascorbic Acid 500 mg [Vitamin C 500 MG] 500 mg PO DAILY 04/19/22 [History Confirmed 11/21/22] Diphenhydramine HCl [Benadryl Allergy] 50 mg PO DAILY 04/19/22 [History Confirmed 11/21/22] Potassium Chloride 10 meq PO BID 04/19/22 [History Confirmed 11/21/22] Zinc 50 mg PO DAILY 04/19/22 [History Confirmed 11/21/22] Levothyroxine Sodium 25 Mcg [Synthroid 25 Mcg] 25 mcg PO DAILY 05/02/22 [History Confirmed 11/21/22] Hydrocodone/Acetaminophen [Hydrocodone-Acetamin 10-325 mg] 1 tab PO Q6-8HPRN PRN 08/14/22 [History Confirmed 11/21/22] Lactobacillus Acidophilus [Acidophilus TABLET] 1 tab PO BID #14 tablet 08/16/22 [Rx Confirmed 11/21/22] Bumetanide 1 mg [Bumex 1 mg] 2 mg PO BID 15 Days #30 tablet 08/20/22 [Rx Confirmed 11/21/22] Metoprolol Tartrate 50 mg [Lopressor 50 MG] 50 mg PO DAILY 11/21/22 [History Confirmed 11/21/22] Allergies/Adverse Reactions: Allergies Allergy/AdvReac Type Severity Reaction Status Date / Time amoxicillin Allergy Verified 11/21/22 07:03 levofloxacin [From Levaquin] Allergy Verified 11/21/22 07:03 ofloxacin [From Floxin] Allergy Verified 08/14/22 10:04 Sulfa (Sulfonamide Allergy Verified 08/14/22 10:04 Antibiotics) [Sulfa(Sulfonamide Antibiotics)] - Past Medical History Past Medical History: Yes Neurological History: Peripheral Neuropathy ENT History: No Pertinent History Cardiac History: Hypertension Respiratory History: COPD Endocrine Medical History: Diabetes Type II, Hypothyroidism Musculoskelatal History: Arthritis GI Medical History: Diverticulitis, Diverticulosis, Hemorrhoids, Hernia History: Renal Disease Pyscho-Social History: No Pertinent History Reproductive Disorders: No Pertinent History Comment: PE, ARRYTHMIA, RENAL DZ, DDD, RA, OA, MYELODSYPLASTIC SYNDROME. PSH: CARDIAC CATH, HYSTERECTOMY, LUMPECTOMY, BASAL AND SQUAMOUS CELL CA. - Past Surgical History Past Surgical History: Yes Neuro Surgical History: No Pertinent History Cardiac History: Cardiac Catheterization Respiratory Surgery: No Pertinent History GI Surgical History: No Pertinent History Genitourinary Surgical Hx: No Pertinent History Musculskeletal Surgical Hx: No Pertinent History Female Surgical History: Hysterectomy, Lumpectomy Other Surgical History: breast tumor removed, tumor removed from back benign, 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, cauterization due to intestinal bleed - Social History Smoking Status: Never smoker Exposure to second hand smoke: No Alcohol: None Drug Use: none Significant Family History: no pertinent family hx - Physical Exam Vital Signs: Vital Signs - 24 hr Temp Pulse Resp BP BP Pulse Ox 11/22/22 18:21 74 18 95 11/22/22 16:00 98.7 F 48 L 18 142/60 92 L 11/22/22 11:59 97.7 F 49 L 16 99/50 92 L 11/22/22 09:17 80 18 97 11/22/22 07:53 98 F 80 16 163/72 93 L 11/22/22 04:00 98.2 F 84 18 136/62 93 L 11/21/22 23:41 98.9 F 87 16 128/58 95 11/21/22 22:58 83 18 96 11/21/22 20:00 97.7 F 79 18 146/63 96 Results - Labs Lab/Micro Results: Lab Results-Last 24 Hours 11/21/22 11/22/22 11/22/22 Range/Units 21:10 05:14 05:14 WBC 7.3 (4.0-10.5) x10^3/uL RBC 3.58 L (4.1-5.4) x10^6/uL Hgb 10.3 L (12.0-16.0) g/dL Hct 32.8 L (35-47) % MCV 91.6 (78-100) fL MCH 28.8 (26-32) pg MCHC 31.4 L (32-36) g/dL RDW 15.7 H (11.5-14.0) % Plt Count 159 (150-450) x10^3/uL MPV 9.2 (7.5-11.0) fL Gran % 43.7 (36.0-66.0) % Immature Gran % (Auto) 0.4 (0.00-0.4) % Nucleat RBC Rel Count 0.0 (0.00-0.1) % Eos # (Auto) 0.62 H (0-0.5) x10^3/uL Immature Gran # (Auto) 0.03 (0.00-0.03) x10^3u/L Absolute Lymphs (auto) 2.96 (1.0-4.6) x10^3/uL Absolute Monos (auto) 0.46 (0.0-1.3) x10^3/uL Absolute Nucleated RBC 0.00 (0.00-0.01) x10^3u/L Lymphocytes % 40.4 (24.0-44.0) % Monocytes % 6.3 (0.0-12.0) % Eosinophils % 8.5 H (0.00-5.0) % Basophils % 0.7 (0.0-0.4) % Absolute Granulocytes 3.21 (1.4-6.9) x10^3/uL Basophils # 0.05 (0-0.4) x10^3/uL Sodium 133 L (137-145) mmol/L Potassium 3.9 (3.5-5.1) mmol/L Chloride 105 (98-107) mmol/L Carbon Dioxide 28 (22-30) mmol/L Anion Gap 4.2 L (5-15) MEQ/L BUN 11 (7-17) mg/dL Creatinine 1.04 (0.52-1.04) mg/dL Estimated GFR 53.8 ML/MIN Glucose 110 H (74-106) mg/dL POC Glucometer 122 H (74 to 106) mg/dL Lactic Acid (0.4-2.0) Calcium 8.5 (8.4-10.2) mg/dL Total Bilirubin 0.40 (0.2-1.3) mg/dL AST 21 (14-36) U/L ALT 10 (0-35) U/L Alkaline Phosphatase 72 (38-126) U/L Serum Total Protein 5.3 L (6.3-8.2) g/dL Albumin 2.9 L (3.5-5.0) g/dL TSH 3rd Generation (0.47-4.68) mIU/L 11/22/22 11/22/22 11/22/22 Range/Units 05:14 06:42 07:21 WBC (4.0-10.5) x10^3/uL RBC (4.1-5.4) x10^6/uL Hgb (12.0-16.0) g/dL Hct (35-47) % MCV (78-100) fL MCH (26-32) pg MCHC (32-36) g/dL RDW (11.5-14.0) % Plt Count (150-450) x10^3/uL MPV (7.5-11.0) fL Gran % (36.0-66.0) % Immature Gran % (Auto) (0.00-0.4) % Nucleat RBC Rel Count (0.00-0.1) % Eos # (Auto) (0-0.5) x10^3/uL Immature Gran # (Auto) (0.00-0.03) x10^3u/L Absolute Lymphs (auto) (1.0-4.6) x10^3/uL Absolute Monos (auto) (0.0-1.3) x10^3/uL Absolute Nucleated RBC (0.00-0.01) x10^3u/L Lymphocytes % (24.0-44.0) % Monocytes % (0.0-12.0) % Eosinophils % (0.00-5.0) % Basophils % (0.0-0.4) % Absolute Granulocytes (1.4-6.9) x10^3/uL Basophils # (0-0.4) x10^3/uL Sodium (137-145) mmol/L Potassium (3.5-5.1) mmol/L Chloride (98-107) mmol/L Carbon Dioxide (22-30) mmol/L Anion Gap (5-15) MEQ/L BUN (7-17) mg/dL Creatinine (0.52-1.04) mg/dL Estimated GFR ML/MIN Glucose (74-106) mg/dL POC Glucometer 94 (74 to 106) mg/dL Lactic Acid 1.1 (0.4-2.0) Calcium (8.4-10.2) mg/dL Total Bilirubin (0.2-1.3) mg/dL AST (14-36) U/L ALT (0-35) U/L Alkaline Phosphatase (38-126) U/L Serum Total Protein (6.3-8.2) g/dL Albumin (3.5-5.0) g/dL TSH 3rd Generation < 0.015 L (0.47-4.68) mIU/L 11/22/22 11/22/22 Range/Units 11:33 16:24 WBC (4.0-10.5) x10^3/uL RBC (4.1-5.4) x10^6/uL Hgb (12.0-16.0) g/dL Hct (35-47) % MCV (78-100) fL MCH (26-32) pg MCHC (32-36) g/dL RDW (11.5-14.0) % Plt Count (150-450) x10^3/uL MPV (7.5-11.0) fL Gran % (36.0-66.0) % Immature Gran % (Auto) (0.00-0.4) % Nucleat RBC Rel Count (0.00-0.1) % Eos # (Auto) (0-0.5) x10^3/uL Immature Gran # (Auto) (0.00-0.03) x10^3u/L Absolute Lymphs (auto) (1.0-4.6) x10^3/uL Absolute Monos (auto) (0.0-1.3) x10^3/uL Absolute Nucleated RBC (0.00-0.01) x10^3u/L Lymphocytes % (24.0-44.0) % Monocytes % (0.0-12.0) % Eosinophils % (0.00-5.0) % Basophils % (0.0-0.4) % Absolute Granulocytes (1.4-6.9) x10^3/uL Basophils # (0-0.4) x10^3/uL Sodium (137-145) mmol/L Potassium (3.5-5.1) mmol/L Chloride (98-107) mmol/L Carbon Dioxide (22-30) mmol/L Anion Gap (5-15) MEQ/L BUN (7-17) mg/dL Creatinine (0.52-1.04) mg/dL Estimated GFR ML/MIN Glucose (74-106) mg/dL POC Glucometer 137 H 125 H (74 to 106) mg/dL Lactic Acid (0.4-2.0) Calcium (8.4-10.2) mg/dL Total Bilirubin (0.2-1.3) mg/dL AST (14-36) U/L ALT (0-35) U/L Alkaline Phosphatase (38-126) U/L Serum Total Protein (6.3-8.2) g/dL Albumin (3.5-5.0) g/dL TSH 3rd Generation (0.47-4.68) mIU/L Accuchecks Date 11/22/22 Date 11/22/22 Date 11/22/22 Time 16:24 Time 11:33 Time 07:21 - Radiology Impressions Radiology Exams & Impressions: Radiology Procedures Category Date Time Status ABDOMEN AND PELVIS W/0 CONTRAS [CT] Stat Exams 11/21/22 09:00 Completed CHEST 1 VIEW (PORTABLE) Stat Exams 11/21/22 07:22 Completed Assessment/Plan (1) Enteritis Current Visit: Yes Status: Resolved Code(s): K52.9 - NONINFECTIVE GASTROENTERITIS AND COLITIS, UNSPECIFIED (2) Nausea Current Visit: Yes Status: Resolved Code(s): R11.0 - NAUSEA (3) COPD (chronic obstructive pulmonary disease) Current Visit: Yes Status: Chronic Assessment & Plan: stable (4) HTN (hypertension) Current Visit: Yes Status: Acute Code(s): I10 - ESSENTIAL (PRIMARY) HYPERTENSION (5) Diabetes mellitus type 2 in obese Current Visit: Yes Status: Acute Code(s): E11.69 - TYPE 2 DIABETES MELLITUS WITH OTHER SPECIFIED COMPLICATION; E66.9 - OBESITY, UNSPECIFIED (6) CHF (congestive heart failure) Current Visit: Yes Status: Chronic Assessment & Plan: elevated BNP,monitor I/O Code(s): I50.9 - HEART FAILURE, UNSPECIFIED
[2022-11-22] MEDS: TYLENOL EXTRA STRENGTH 500 MG PO SCH (22:00)
[2022-11-22] MEDS: NYSTOP 30 GM CREAM TOP SCH (23:07)
[2022-11-23] MEDS: VENTOLIN COMMON CANISTER IH SCH (07:22)
[2022-11-23] MEDS: Klor Con PO SCH (09:29)
[2022-11-23] MEDS: SYNTHROID 100 MCG PO SCH (09:29)
[2022-11-23] MEDS: BENADRYL 25 MG CAPSULE PO SCH (09:29)
[2022-11-23] MEDS: Mucinex 600MG ER Tabs PO SCH (09:29)
[2022-11-23] MEDS: ZYLOPRIM 300 MG PO SCH (09:29)
[2022-11-23] MEDS: BUMEX 1 MG PO SCH (09:29)
[2022-11-23] MEDS: NORVASC 5 MG PO SCH (09:29)
[2022-11-23] MEDS: PROTONIX 40 MG IV IV SCH (09:30)
[2022-11-23] MEDS: Vitamin C 500 MG PO SCH (09:30)
[2022-11-23] MEDS: ELIQUIS 2.5 MG TABLET PO SCH (09:30)
[2022-11-23] MEDS: Acidophilus TABLET PO SCH (09:30)
[2022-11-23] MEDS: NYSTOP 30 GM CREAM TOP SCH (09:30)
[2022-11-23] MEDS: MAG-OX 400 PO SCH (09:31)
[2022-11-23] MEDS ORDERED: Toprol-Xl 25MG Tablets PO SCH (10:00)
[2022-11-23] MEDS: Zinc Gluconate 50 MG PO SCH (11:22)
[2022-11-23] MEDS: VITA-BEE WITH C PO SCH (11:22)
--- NOTE | 2022-11-23 16:19 | PCM.DCORD ---
- Discharge Disposition: HOME HEALTH SERVICE Condition: Stable Prescriptions: Continue Magnesium Oxide 400 mg [Mag-Ox 400] 250 mg PO DAILY Allopurinol 300 mg [Zyloprim 300 mg] 300 mg PO DAILY Apixaban [Eliquis] 5 mg PO BID Levothyroxine Sodium [Synthroid] 200 mcg PO DAILY Vitamin B Complex [Super B-50 Complex] 1 cap PO DAILY Metformin HCl 500 mg PO BID Albuterol Sulfate [Proair Hfa] 2 puff IH Q6H PRN PRN Reason: Shortness Of Breath/Wheezing Furosemide 40 mg [Lasix 40 MG] 40 mg PO BID Amlodipine Besylate 2.5 mg PO DAILY Acetaminophen/Diphenhydramine [Tylenol Pm Exstr 500-25Mg Cplt] 1 tab PO HS Zinc 50 mg PO DAILY Ascorbic Acid 500 mg [Vitamin C 500 MG] 500 mg PO DAILY Diphenhydramine HCl [Benadryl Allergy] 50 mg PO DAILY Potassium Chloride 10 meq PO BID Hydrocodone/Acetaminophen [Hydrocodone-Acetamin 10-325 mg] 1 tab PO Q6-8HPRN PRN PRN Reason: Pain Lactobacillus Acidophilus [Acidophilus TABLET] 1 tab PO BID #14 tablet Bumetanide 1 mg [Bumex 1 mg] 2 mg PO BID 15 Days #30 tablet Metoprolol Tartrate 50 mg [Lopressor 50 MG] 50 mg PO DAILY Discontinued Levothyroxine Sodium 25 Mcg [Synthroid 25 Mcg] 25 mcg PO DAILY Follow up with: TRINH MINAYA MD [Primary Care Provider] - SHIRAZ GARCES NP [Family Provider] -
[2022-11-23 17:00] VITALS: BP 132/92; PULSE 85; O2SAT 94
== END 2022-11-23 17:23 | disposition home health service (06) ==
LOC: ED 06:45 → MED SURG 13:20
PROVIDERS: ADMIT Family Medicine; ATTEND Family Medicine
DX: K52.9 Noninfective gastroenteritis and colitis, unspecified (principal); R11.0 Nausea; J44.9 Chronic obstructive pulmonary disease, unspecified; I11.0 Hypertensive heart disease with heart failure; I50.9 Heart failure, unspecified; E11.69 Type 2 diabetes mellitus with other specified complication; E66.9 Obesity, unspecified; E03.9 Hypothyroidism, unspecified; N28.9 Disorder of kidney and ureter, unspecified; Z79.01 Long term (current) use of anticoagulants; Z79.899 Other long term (current) drug therapy; Z20.828 Contact with and (suspected) exposure to other viral communicable diseases; Z85.828 Personal history of other malignant neoplasm of skin
CPT/HCPCS: 0241U; 36000; 36415; 51702; 71045; 74176; 80053; 81001; 82150; 82947; 83605; 83690; 83880; 84443; 84484; 85025; 85610; 85730; 93005; 94640; 94760; 96374; 99285; G0378; J2405; A9270-GY

== ENCOUNTER 2023-07-15 15:03 | Emergency (ER) | payer MEDICARE ==
--- NOTE | 2023-07-15 15:06 | ERPHSYRPT ---
- History of Present Illness Time Seen by Provider: 07/15/23 15:06 Historian: patient, family (Patient's daughter provided additional, independent medical history) Exam Limitations: no limitations Physician History: This is an 83-year-old overweight white female patient who sees Dr. Green as her primary care physician, Dr. 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 Hummel as her lumite injector and presents to the emergency department from home secondary to high blood pressure, changes in vision and mild confusion with what she described as some chest pressure. Patient's daughter was witness to this and gave the patient 2 nitroglycerin and 2 baby aspirin prior to arrival. Patient's daughter states that she has had 2 readings at home of systolic blood pressure over 200. Patient's daughter stated that the patient was nervous and tearful and then suddenly was giggling and laughing. The patient arrived to the emergency department and her initial systolic blood pressure was approximately 187. The second systolic blood pressure was 147. In the third systolic blood pressure was 126. Her initial heart rate was 118 and then dropped to 98. Patient was more calm and stated that she was feeling much better. Patient has multiple medical issues including chronic venous stasis disease and chronic bilateral feet and ankle edema, hypothyroidism, hypertension, diabetes, peripheral neuropathy, COPD, chronic renal disease and arrhythmia on Eliquis. She has no chest pain at this time and she is not short of breath. Patient is not on dialysis. Timing/Duration: today, other (Resolved soon after arrival to the emergency department) Quality: pressure (Mild pressure central substernal without radiation) Severity of Pain-Max: mild Severity of Pain-Current: none Modifying Factors: Improves With: nitroglycerin, aspirin Associated Symptoms: edema (Chronic bilateral ankle and feet), No headache, No dizziness Prior Chest Pain/Cardiac Workup: cardiac cath Nitro Today/Relief: 0.4 mg x 2, provided at home Aspirin Treatment Today: 81 mg x 2, provided at home Allergies/Adverse Reactions: amoxicillin Allergy (Verified 07/15/23 15:29) levofloxacin [From Levaquin] Allergy (Verified 07/15/23 15:29) ofloxacin [From Floxin] Allergy (Verified 07/15/23 15:29) Sulfa (Sulfonamide Antibiotics) [Sulfa(Sulfonamide Antibiotics)] Allergy (Verified 07/15/23 15:29) Home Medications: Allopurinol 300 mg [Zyloprim 300 mg] 300 mg PO DAILY 11/30/16 [History] Levothyroxine Sodium [Synthroid] 200 mcg PO DAILY 11/30/16 [History] Magnesium Oxide 400 mg [Mag-Ox 400] 400 mg PO DAILY 11/30/16 [History] Metformin HCl 500 mg PO BID 04/24/18 [History] Acetaminophen/Diphenhydramine [Tylenol Pm Exstr 500-25Mg Cplt] 1 tab PO HS 09/18/21 [History] Albuterol Sulfate [Proair Hfa] 2 puff IH Q6H PRN 09/18/21 [History] Diphenhydramine HCl [Benadryl Allergy] 50 mg PO DAILY 04/19/22 [History] Potassium Chloride 10 meq PO BID 04/19/22 [History] Hydrocodone/Acetaminophen [Hydrocodone-Acetamin 10-325 mg] 1 tab PO Q6-8HPRN PRN 08/14/22 [History] Metoprolol Tartrate 50 mg [Lopressor 50 MG] 50 mg PO DAILY 11/21/22 [History] Fluticasone/Umeclidin/Vilanter [Trelegy Ellipta 100-62.5-25] 1 inh PO DAILY 07/15/23 [History] Hx Tetanus, Diphtheria Vaccination/Date Given: Yes Hx Influenza Vaccination/Date Given: Yes Hx Pneumococcal Vaccination/Date Given: Yes Travel Risk - International Travel Have you traveled outside of the country in past 3 weeks: No - Coronavirus Screening Are you exhibiting any of the following symptoms?: No Close contact with a COVID-19 positive Pt in past 14-21 Days: No - Vaccine Status Have you recieved a Covid-19 vaccination: Yes Paraprofessional Education Assistant: Unknown - Vaccination Dates Dates if Unknown: unknown - Review of Systems Constitutional: No Symptoms Eyes: No Symptoms Ears, Nose, & Throat: No Symptoms Respiratory: No Symptoms Cardiac: No Symptoms Abdominal/Gastrointestinal: No Symptoms Genitourinary Symptoms: No Symptoms Musculoskeletal: No Symptoms Skin: No Symptoms Neurological: Sensory Changes, Other (Visual changes) Psychological: Emotional Lability Endocrine: No Symptoms Hematologic/Lymphatic: No Symptoms Immunological/Allergic: No Symptoms All Other Systems: Reviewed and Negative - Past Medical History Pertinent Past Medical History: Yes Neurological History: Peripheral Neuropathy ENT History: No Pertinent History Cardiac History: Hypertension Respiratory History: COPD Endocrine Medical History: Diabetes Type II, Hypothyroidism Musculoskeletal History: Arthritis GI Medical History: Diverticulitis, Diverticulosis, Hemorrhoids, Hernia History: Renal Disease Psycho-Social History: No Pertinent History Female Reproductive Disorders: No Pertinent History Other Medical History: PE, ARRYTHMIA, RENAL DZ, DDD, RA, OA, MYELODSYPLASTIC S YNDROME. PSH: CARDIAC CATH, HYSTERECTOMY, LUMPECTOMY, BASAL AND SQUAMOUS CELL CA. - Past Surgical History Past Surgical History: Yes Neuro Surgical History: No Pertinent History Cardiac: Cardiac Catheterization Respiratory: No Pertinent History Gastrointestinal: No Pertinent History Genitourinary: No Pertinent History Musculoskeletal: No Pertinent History Female Surgical History: Hysterectomy, Lumpectomy Other Surgical History: breast tumor removed, tumor removed from back benign, 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, cauterization due to i ntestinal bleed - Social History Smoking Status: Never smoker Exposure to second hand smoke: No Drug Use: none Patient Lives Alone: No Significant Family History: no pertinent family hx - Nursing Vital Signs Nursing Vital Signs: Initial Vital Signs Temperature 97.6 F 07/15/23 15:06 Pulse Rate 116 H 07/15/23 15:06 Respiratory Rate 11 L 07/15/23 15:06 Blood Pressure 181/97 07/15/23 15:06 O2 Sat by Pulse Oximetry 98 07/15/23 15:06 Pain Scale Pain Intensity 0 - Physical Exam General Appearance: no apparent distress, alert, obese Eye Exam: PERRL/EOMI, eyes nml inspection Ears, Nose, Throat Exam: normal ENT inspection, moist mucous membranes Neck Exam: normal inspection, non-tender, supple, full range of motion Respiratory Exam: normal breath sounds, lungs clear, airway intact, No chest tenderness, No respiratory distress Cardiovascular Exam: tachycardia Gastrointestinal/Abdomen Exam: soft, normal bowel sounds, No tenderness Pelvic Exam: not done Rectal Exam: not done Back Exam: normal inspection, normal range of motion, No CVA tenderness, No vertebral tenderness Extremity Exam: normal range of motion, pelvis stable, pedal edema, other (Bilateral lower extremity chronic venous stasis disease as well as mild lymphedema.) Neurologic Exam: alert, oriented x 3, cooperative, program counselor II-XII nml as tested, normal mood/affect, sensation nml Skin Exam: normal color, warm, dry Lymphatic Exam: No adenopathy SpO2 Interpretation: normal O2 Delivery: Room Air - Course Nursing assessment & vital signs reviewed: Yes EKG Interpreted by Me: RATE ([id number]), Sinus Tach, NORMAL AXIS, NORMAL INTERVALS, NORMAL QRS, NORMAL ST-T, Other (No acute ischemic changes on today's twelve-lead EKG) Ordered Tests: Active Orders 24 hr Category Date Time Status Tube Making Machine Operator STAT Care 07/15/23 15:08 Active EKG-ER Only STAT Care 07/15/23 15:07 Active IV Insertion STAT Care 07/15/23 15:07 Active Pulse Oximetry (ED) STAT Care 07/15/23 15:07 Active CHEST 1 VIEW (PORTABLE) Stat Exams 07/15/23 15:08 Completed HEAD WITHOUT CONTRAST [CT] Stat Exams 07/15/23 15:39 Completed CBC W DIFF Stat Lab 07/15/23 15:07 Completed CMP Stat Lab 07/15/23 15:10 Completed CULTURE,URINE Stat Lab 07/15/23 17:31 Received NT PRO BNPII Stat Lab 07/15/23 15:10 Completed PROTIME WITH INR Stat Lab 07/15/23 15:10 Completed TROPONIN Q4H Lab 07/15/23 15:10 Completed TROPONIN Q4H Lab 07/15/23 18:08 Received TROPONIN Q4H Lab 07/15/23 23:15 Ordered UA W/RFX UR CULTURE Stat Lab 07/15/23 17:31 Completed Medication Summary Discontinued Medications Generic Name Dose Route Start Last Admin Trade Name Freq PRN Reason Stop Dose Admin Aspirin 324 mg 07/15/23 15:07 07/15/23 15:19 Aspirin 81 Mg Tab.Chew PO 07/15/23 15:08 162 mg STAT ONE Administration Aspirin Confirm 07/15/23 15:17 Aspirin 81 Mg Tab.Chew Administered 07/15/23 15:18 Dose 162 mg .ROUTE .STK-MED ONE Ceftriaxone Sodium/Dextrose 1 g in 50 mls @ 100 mls/hr 07/15/23 18:20 07/15/23 19:03 Rocephin 1 Gm-D5w 50 Ml Bag IV 07/15/23 18:49 Infused STAT STA Infusion Ceftriaxone Sodium/Dextrose Confirm 07/15/23 18:21 Rocephin 1 Gm-D5w 50 Ml Bag Administered 07/15/23 18:22 Dose 1 g in 50 mls @ ud IV .STK-MED ONE Metoprolol Tartrate 5 mg 07/15/23 15:07 07/15/23 15:20 Metoprolol Tartrate 5 Mg/5 Ml Vial IV 07/15/23 15:08 5 mg STAT ONE Administration Metoprolol Tartrate Confirm 07/15/23 15:17 Metoprolol Tartrate 5 Mg/5 Ml Vial Administered 07/15/23 15:18 Dose 5 mg IV .STK-MED ONE Lab/Rad Data: Laboratory Result Diagrams 07/15/23 15:07 07/15/23 15:10 Laboratory Results 07/15/23 07/15/23 07/15/23 Range/Units 17:31 15:10 15:10 WBC (4.0-10.5) x10^3/uL RBC (4.1-5.4) x10^6/uL Hgb (12.0-16.0) g/dL Hct (35-47) % MCV (78-100) fL MCH (26-32) pg MCHC (32-36) g/dL RDW (11.5-14.0) % Plt Count (150-450) x10^3/uL MPV (7.5-11.0) fL Gran % (36.0-66.0) % Immature Gran % (Auto) (0.00-0.4) % Nucleat RBC Rel Count (0.00-0.1) % Eos # (Auto) (0-0.5) x10^3/uL Immature Gran # (Auto) (0.00-0.03) x10^3u/L Absolute Lymphs (auto) (1.0-4.6) x10^3/uL Absolute Monos (auto) (0.0-1.3) x10^3/uL Absolute Nucleated RBC (0.00-0.01) x10^3u/L Lymphocytes % (24.0-44.0) % Monocytes % (0.0-12.0) % Eosinophils % (0.00-5.0) % Basophils % (0.0-0.4) % Absolute Granulocytes (1.4-6.9) x10^3/uL Basophils # (0-0.4) x10^3/uL PT (9.4-12.5) SECONDS INR (0.8-3.0) Sodium (137-145) mmol/L Potassium (3.5-5.1) mmol/L Chloride (98-107) mmol/L Carbon Dioxide (22-30) mmol/L Anion Gap (5-15) MEQ/L BUN (7-17) mg/dL Creatinine (0.52-1.04) mg/dL Estimated GFR ML/MIN Glucose (74-106) mg/dL Calcium (8.4-10.2) mg/dL Total Bilirubin (0.2-1.3) mg/dL AST (14-36) U/L ALT (0-35) U/L Alkaline Phosphatase (38-126) U/L Troponin I < 0.012 (0.000-0.034) ng/mL NT-Pro-B Natriuret Pep 516 (<300) pg/mL Serum Total Protein (6.3-8.2) g/dL Albumin (3.5-5.0) g/dL Urine Color Yellow (Yellow) Urine Appearance Turbid A (Clear) Urine pH 5.5 (4.6-8.0) Ur Specific [place] 1.010 (1.005-1.030) Urine Protein Trace A (Negative) Urine Glucose (UA) Negative (Negative) mg/dL Urine Ketones Negative (Negative) Urine Blood Small A (Negative) Urine Nitrite Positive A (Negative) Urine Bilirubin Negative (Negative) Urine Urobilinogen 0.2 (0.2) mg/dL Ur Leukocyte Esterase Large A (Negative) U Hyaline Cast (Auto) 3-5 A (0-2) /LPF Urine Microscopic RBC 3-5 (0-5) /HPF Urine Microscopic WBC >100 A (0-5) /HPF Ur Epithelial Cells None Seen (None Seen) /HPF Urine Bacteria Many A (None Seen) /HPF Urine Culture Reflexed YES (NO) 07/15/23 07/15/23 07/15/23 Range/Units 15:10 15:10 15:07 WBC 10.9 H (4.0-10.5) x10^3/uL RBC 3.84 L (4.1-5.4) x10^6/uL Hgb 11.8 L (12.0-16.0) g/dL Hct 37.3 (35-47) % MCV 97.1 (78-100) fL MCH 30.7 (26-32) pg MCHC 31.6 L (32-36) g/dL RDW 17.2 H (11.5-14.0) % Plt Count 237 (150-450) x10^3/uL MPV 9.3 (7.5-11.0) fL Gran % 71.8 H (36.0-66.0) % Immature Gran % (Auto) 1.4 H (0.00-0.4) % Nucleat RBC Rel Count 0.0 (0.00-0.1) % Eos # (Auto) 0.34 (0-0.5) x10^3/uL Immature Gran # (Auto) 0.15 H (0.00-0.03) x10^3u/L Absolute Lymphs (auto) 1.92 (1.0-4.6) x10^3/uL Absolute Monos (auto) 0.58 (0.0-1.3) x10^3/uL Absolute Nucleated RBC 0.00 (0.00-0.01) x10^3u/L Lymphocytes % 17.6 L (24.0-44.0) % Monocytes % 5.3 (0.0-12.0) % Eosinophils % 3.1 (0.00-5.0) % Basophils % 0.8 (0.0-0.4) % Absolute Granulocytes 7.86 H (1.4-6.9) x10^3/uL Basophils # 0.09 (0-0.4) x10^3/uL PT 10.7 (9.4-12.5) SECONDS INR 0.98 (0.8-3.0) Sodium 137 (137-145) mmol/L Potassium 4.1 (3.5-5.1) mmol/L Chloride 99 (98-107) mmol/L Carbon Dioxide 24 (22-30) mmol/L Anion Gap 19.0 H (5-15) MEQ/L BUN 26 H (7-17) mg/dL Creatinine 1.24 H (0.52-1.04) mg/dL Estimated GFR 43.8 ML/MIN Glucose 211 H (74-106) mg/dL Calcium 9.1 (8.4-10.2) mg/dL Total Bilirubin 0.50 (0.2-1.3) mg/dL AST 28 (14-36) U/L ALT 17 (0-35) U/L Alkaline Phosphatase 114 (38-126) U/L Troponin I (0.000-0.034) ng/mL NT-Pro-B Natriuret Pep (<300) pg/mL Serum Total Protein 7.0 (6.3-8.2) g/dL Albumin 3.9 (3.5-5.0) g/dL Urine Color (Yellow) Urine Appearance (Clear) Urine pH (4.6-8.0) Ur Specific [place] (1.005-1.030) Urine Protein (Negative) Urine Glucose (UA) (Negative) mg/dL Urine Ketones (Negative) Urine Blood (Negative) Urine Nitrite (Negative) Urine Bilirubin (Negative) Urine Urobilinogen (0.2) mg/dL Ur Leukocyte Esterase (Negative) U Hyaline Cast (Auto) (0-2) /LPF Urine Microscopic RBC (0-5) /HPF Urine Microscopic WBC (0-5) /HPF Ur Epithelial Cells (None Seen) /HPF Urine Bacteria (None Seen) /HPF Urine Culture Reflexed (NO) - Progress Progress: improved, re-examined, unchanged Air Movement: good Progress Note: 07/15/23 16:58 This patient's medical issue is 1 of moderate complexity. Level complexity the work-up performed based on review the patient's past medical history, review of the patient's medication list, review of the patient's drug allergy list, history of present illness and physical finds on examination. Work-up in this patient includes intravenous line placement, twelve-lead EKG, troponin level, urinalysis, CT scan of the head, CBC, CMP and BNP levels. I reviewed the results of the laboratory data. The patient has no evidence of any acute, emergent medical issue on the initial labs that were drawn and results returned. We are still waiting for the urinalysis. I also want to repeat twelve-lead EKG and troponin level at 3 hours. If these studies are normal we will discharge the patient to home. Patient's blood pressure has normalized. CT scan of the head without contrast was interpreted by the radiologist. The impression is a nonacute senile brain. Chest x-ray was interpreted by the radiologist and I reviewed the impression. The impression is nonacute chest with chronic features. 07/15/23 19:05 Second, 3-hour twelve-lead EKG interpreted by me and the twelve-lead EKG was performed on 07/15/2023 at 1846. There are no acute ischemic changes on today's twelve-lead EKG. Heart rate of 79 bpm and normal sinus rhythm. There is a normal axis deviation, normal interval and normal QRS findings. The patient has no chest pain. She is not short of breath. We are awaiting the 3-hour troponin level. If this is normal she will be discharged home Blood Culture(s) Obtained: No Antibiotics given: Yes Counseled pt/family regarding: lab results, diagnosis, need for follow-up, rad results Medical Desision Making - Diagnostic Testing Diagnostic test were ordered, analyzed, and reviewed by me: Yes Radiological Interpretation: Reviewed by me, Teleradiologist Report - Risk of complications The pt has a mod risk of morbidity or mortality based on: Need for prescription drug management - Departure Departure Disposition: Home Clinical Impression: UTI (urinary tract infection), Hypertension, Anxiety Condition: Stable Critical Care Time: No Referrals: [facility] [LOCATION] - Follow up/PCP as directed Additional Instructions: Drink plenty of fluids. Take your medication as prescribed. Follow-up with your primary care provider tomorrow, 07/16/2023, for further evaluation management. Prescriptions: Cefdinir 300 mg PO BID #14 cap
[2023-07-15] MEDS ORDERED: LOPRESSOR INJECTION IV ONE ×2 (15:07→15:17)
[2023-07-15] MEDS ORDERED: BABY ASPIRIN 81 MG CHEW PO ONE (15:07)
[2023-07-15] MEDS ORDERED: BABY ASPIRIN 81 MG CHEW ONE (15:17)
[2023-07-15 15:28] VITALS: TEMP 97.6
--- NOTE | 2023-07-15 15:32 | XRAY ---
Indication: Chest pain. Comparison: November 21, 2022 Portable chest unchanged again demonstrating minimal bibasilar subsegmental atelectasis/scarring and tiny right mid lung calcified granuloma. Heart not enlarged for AP portable technique. Bony thorax intact again with osteopenia, moderate degenerative changes, and T12 kyphoplasty. Impression: Continued nonacute chest with chronic features.
[2023-07-15 15:37] LABS: Absolute Neutrophil Ct (ANC) 7.86 x10^3/uL (1.4-6.9); BASOPHIL % 0.8 % (0.0-0.4); Basophil (Absolute #) 0.09 x10^3/uL (0-0.4); Eosinophil % 3.1 % (0.00-5.0); Eosinophil (Absolute #) 0.34 x10^3/uL (0-0.5); Hematocrit 37.3 % (35-47); Hemoglobin 11.8 g/dL (12.0-16.0); IMMATURE GRAN # 0.15 x10^3u/L (0.00-0.03); IMMATURE GRAN % 1.4 % (0.00-0.4); Lymphocyte (Absolute #) 1.92 x10^3/uL (1.0-4.6); Lymphocytes % 17.6 % (24.0-44.0); Mean Cell Volume 97.1 fL (78-100); Mean Corpuscular Hemoglobin 30.7 pg (26-32); Mean Corpuscular Hgb Concent. 31.6 g/dL (32-36); Mean Platelet Volume 9.3 fL (7.5-11.0); Monocyte (Absolute #) 0.58 x10^3/uL (0.0-1.3); Monocytes % 5.3 % (0.0-12.0); Neutrophil % 71.8 % (36.0-66.0); Platelet Count 237 x10^3/uL (150-450); Red Blood Count 3.84 x10^6/uL (4.1-5.4); Red Cell Distribution Width 17.2 % (11.5-14.0); White Blood Count 10.9 x10^3/uL (4.0-10.5)
[2023-07-15 15:51] LABS: INR 0.98 (0.8-3.0); PROTIME 10.7 SECONDS (9.4-12.5)
[2023-07-15 15:56] LABS: ALBUMIN 3.9 g/dL (3.5-5.0); BILIRUBIN,TOTAL 0.5 mg/dL (0.2-1.3); Calcium 9.1 mg/dL (8.4-10.2); Creatinine 1 1.24 mg/dL (0.52-1.04); EST GLOMERULAR FILTRATION RATE 43.8 ML/MIN; Potassium 4.1 mmol/L (3.5-5.1)
--- NOTE | 2023-07-15 16:40 | XRAY ---
Indication: Confusion. Vision issues. Elevated blood pressure. Multiple contiguous axial images obtained through the head without contrast. Comparison: April 14, 2020 Again age-appropriate global atrophy and minimal periventricular degenerative micro-ischemia. No acute intracranial hemorrhage, abnormal extra-axial fluid collection, or mass effect. Fourth ventricle is midline without hydrocephalus. Bony calvarium intact. Visualized paranasal sinuses and mastoid air cells are clear. Impression: Continued nonacute senile brain.
[2023-07-15 17:44] LABS: Appearance Turbid (Clear); Bacteria Many /HPF (None Seen); Bilirubin Negative (Negative); Blood Small (Negative); Epithelial Cells None Seen /HPF (None Seen); Glucose, Urine Negative (Negative); Ketones Negative (Negative); Leukocyte Esterase Large (Negative); Nitrite Positive (Negative); Ph 5.5 (4.6-8.0); Protein,Urine Dip Trace (Negative); Urobilinogen 0.2 mg/dL (0.2); WBC >100 /HPF (0-5)
[2023-07-15 17:45] LABS: ADD URINE CULTURE? YES (NO)
[2023-07-15] MEDS ORDERED: ROCEPHIN 1 Gm-D5w 50 ml Bag** 1 G/50 ML IVPB IV STA (18:20)
[2023-07-15] MEDS ORDERED: ROCEPHIN 1 Gm-D5w 50 ml Bag** 1 G/50 ML IVPB IV ONE (18:21)
[2023-07-15 19:14] VITALS: PULSE 84; O2SAT 94
[2023-07-15 19:37] VITALS: BP 144/77; RESP 16
== END 2023-07-15 19:45 | disposition home or self-care (01) ==
LOC: ED 15:03
DX: N39.0 Urinary tract infection, site not specified (principal); I12.9 Hypertensive chronic kidney disease with stage 1 through stage 4 chronic kidney disease, or unspecified chronic kidney disease; F41.9 Anxiety disorder, unspecified; R07.9 Chest pain, unspecified; E11.22 Type 2 diabetes mellitus with diabetic chronic kidney disease; N18.9 Chronic kidney disease, unspecified; E11.42 Type 2 diabetes mellitus with diabetic polyneuropathy; Z79.01 Long term (current) use of anticoagulants; Z79.84 Long term (current) use of oral hypoglycemic drugs; Z79.899 Other long term (current) drug therapy
CPT/HCPCS: 36000; 36415; 70450; 71045; 80053; 81001; 83880; 84484; 85025; 85610; 87077; 87086; 87186; 93005; 93041; 94760; 96365; 96374; 99284; J0696; A9270-GY

== ENCOUNTER 2023-09-10 22:46 | Inpatient (IN) | payer MEDICARE, SELFPAY ==
[2023-09-10] MEDS ORDERED: Lasix 40 MG/4 ML IV ONE (23:40)
--- NOTE | 2023-09-10 23:57 | ERPHSYRPT ---
- History of Present Illness Time Seen by Provider: 09/10/23 22:58 Source: patient, family Exam Limitations: no limitations Patient Subjective Stated Complaint: bilat leg edema Triage Nursing Assessment: pt brought back to ER via wheelchair, with assist of pt's daughter and grandson. Pt c/o bilat leg edema x7 days. Pt saw Dr. Green last and he increased her bumex to tid but no significant results noted from the increase. Pt has 4+ pitting edema to bilat lower ext and feet. Pt has a few open areas to left lower ext; pt scraped the back of her left leg getting out of the car tonight coming into the ER which was bleeding upon arrival. Physician History: 83 years old female with multiple medical problems including congestive heart failure with chronic bilateral lower extremity swelling, PE, taken off of Eliquis last few months presented in the ER with chief complaint of worsening bilateral lower extremity swelling for almost 10 days. Patient was recently evaluated at 's office, was increased the dose of Bumex but does not seem working. Patient denies any chest pain or difficulty breathing. No fever or chills reported. Patient report has increasing swelling and it makes small b rajan which break open with exposed raw surface underneath. Denies any fall or trauma recently. Allergies/Adverse Reactions: amoxicillin Allergy (Verified 09/10/23 23:26) levofloxacin [From Levaquin] Allergy (Verified 09/10/23 23:26) ofloxacin [From Floxin] Allergy (Verified 09/10/23 23:26) Sulfa (Sulfonamide Antibiotics) [Sulfa(Sulfonamide Antibiotics)] Allergy (Verified 09/10/23 23:26) Home Medications: Allopurinol 300 mg [Zyloprim 300 mg] 300 mg PO DAILY 11/30/16 [History] Levothyroxine Sodium [Synthroid] 225 mcg PO DAILY 11/30/16 [History] Metformin HCl 500 mg PO DAILY 04/24/18 [History] Acetaminophen/Diphenhydramine [Tylenol Pm Exstr 500-25Mg Cplt] 1 tab PO HS 09/18/21 [History] Diphenhydramine HCl [Benadryl Allergy] 50 mg PO BID 04/19/22 [History] Potassium Chloride 10 meq PO TID 04/19/22 [History] Metoprolol Tartrate 50 mg [Lopressor 50 MG] 50 mg PO DAILY 11/21/22 [History] Fluticasone/Umeclidin/Vilanter [Trelegy Ellipta 100-62.5-25] 1 inh PO DAILY 07/15/23 [History] Brexpiprazole [Rexulti] 0.5 mg PO DAILY 09/10/23 [History] Bumetanide 1 mg [Bumex 1 mg] 2 mg PO TID 09/10/23 [History] Hydrocodone/Acetaminophen [Hydrocodone-Acetamin 7.5-325] 1 tab PO Q6-8HPRN PRN 09/10/23 [History] Amlodipine Besylate 2.5 mg PO DAILY 09/11/23 [History] Aspirin EC 81 mg [Ecotrin 81 mg] 1 tab PO DAILY 09/11/23 [History] levalbuterol HCl [Xopenex 1.25 MG/0.5 ML UD NEBULE] 1.25 mg IH DAILY PRN PRN 09/11/23 [History] Hx Tetanus, Diphtheria Vaccination/Date Given: Yes Hx Influenza Vaccination/Date Given: Yes Hx Pneumococcal Vaccination/Date Given: Yes Immunizations Up to Date: Yes Travel Risk - International Travel Have you traveled outside of the country in past 3 weeks: No - Coronavirus Screening Are you exhibiting any of the following symptoms?: No Close contact with a COVID-19 positive Pt in past 14-21 Days: No - Vaccine Status Have you recieved a Covid-19 vaccination: Yes [employer]: Moderna - Vaccination Dates Date of 2cond Vaccination (if applicable): . - Review of Systems Constitutional: No Symptoms Ears, Nose, & Throat: No Symptoms Respiratory: No Symptoms Cardiac: Edema Abdominal/Gastrointestinal: No Symptoms Genitourinary Symptoms: No Symptoms Musculoskeletal: Arthralgias Skin: Skin Lesions Neurological: No Symptoms - Past Medical History Pertinent Past Medical History: Yes Neurological History: Peripheral Neuropathy ENT History: No Pertinent History Cardiac History: Arrhythmia, Hypertension Respiratory History: COPD Endocrine Medical History: Diabetes Type II, Hypothyroidism Musculoskeletal History: Arthritis, Degenerative Disk Disease, Osteoarthritis GI Medical History: Diverticulitis, Diverticulosis, Hemorrhoids, Hernia, Other History: Renal Disease Psycho-Social History: No Pertinent History Female Reproductive Disorders: No Pertinent History Other Medical History: PE, ARRYTHMIA, RENAL DZ, DDD, RA, OA, MYELODSYPLASTIC SYNDROME. PSH: CARDIAC CATH, HYSTERECTOMY, LUMPECTOMY, BASAL AND SQUAMOUS CELL CA. - Past Surgical History Past Surgical History: Yes Neuro Surgical History: No Pertinent History Cardiac: Cardiac Catheterization Respiratory: No Pertinent History Gastrointestinal: Other Genitourinary: No Pertinent History Musculoskeletal: No Pertinent History Female Surgical History: Hysterectomy, Lumpectomy Other Surgical History: breast tumor removed, tumor removed from back benign, 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, cauterization due to intestinal bleed, colon ruptured was septic and has colostomy - Social History Smoking Status: Never smoker Exposure to second hand smoke: Yes Drug Use: none Patient Lives Alone: No Significant Family History: no pertinent family hx - Nursing Vital Signs Nursing Vital Signs: Initial Vital Signs Temperature 98.1 F 09/10/23 23:09 Pulse Rate 117 H 09/10/23 23:09 Respiratory Rate 22 09/10/23 23:09 Blood Pressure 140/113 09/10/23 23:09 O2 Sat by Pulse Oximetry 99 09/10/23 23:09 Pain Scale Pain Intensity 0 - Physical Exam General Appearance: no apparent distress, alert Eye Exam: PERRL/EOMI Ears, Nose, Throat Exam: normal ENT inspection Neck Exam: normal inspection, non-tender, full range of motion Respiratory Exam: rhonchi Cardiovascular Exam: normal heart sounds, tachycardia Gastrointestinal/Abdomen Exam: soft, normal bowel sounds, other (Colostomy bag well applied), No tenderness Back Exam: normal inspection Neurologic Exam: alert, oriented x 3, cooperative Skin Exam: other (Multiple open sores left leg with good granulation tissue under it. 2+ pitting edema.) SpO2 Interpretation: normal SpO2: 99 O2 Delivery: Room Air Ordered Tests: Medication Summary Generic Name Dose Route Start Last Admin Trade Name Freq PRN Reason Stop Dose Admin Acetaminophen 650 mg 09/11/23 02:59 Acetaminophen 650 Mg Supp.Rect [place] 10/11/23 02:58 Q4H PRN PRN PAIN AND/OR FEVER Acetaminophen 500 mg 09/11/23 22:00 09/12/23 20:27 Acetaminophen 500 Mg Tablet PO 10/11/23 21:59 500 mg HS NKECHI Administration Hydrocodone Bitart/Acetaminophen 1 tab 09/11/23 02:52 09/13/23 10:43 Hydrocodone /Apap 7.5/325 Mg 1 Each Tablet PO 09/16/23 02:51 1 tab Q6HPRN PRN Administration back pain Allopurinol 300 mg 09/11/23 10:00 09/13/23 08:02 Allopurinol 300 Mg Tablet PO 10/11/23 09:59 300 mg DAILY NKECHI Administration Amlodipine Besylate 2.5 mg 09/11/23 10:00 09/13/23 08:03 Amlodipine Besylate 5 Mg Tablet PO 10/11/23 09:59 2.5 mg DAILY NKECHI Administration Aspirin 81 mg 09/11/23 10:00 09/13/23 08:02 Aspirin 81 Mg Tablet.Ec PO 10/11/23 09:59 81 mg DAILY NKECHI Administration Docusate Sodium 100 mg 09/11/23 02:59 Docusate Sodium 100 Mg Capsule PO 10/11/23 02:58 BIDPRN PRN CONSTIPATION Famotidine 20 mg 09/11/23 10:00 09/13/23 21:12 Famotidine 20 Mg Tablet PO 10/11/23 09:59 20 mg BID NKECHI Administration Furosemide 40 mg 09/13/23 10:00 09/13/23 21:13 Furosemide 40 Mg/4 Ml Vial IV 10/13/23 09:59 40 mg TID NKECHI Administration Heparin Sodium (Beef Lung) 5,000 unit 09/11/23 10:00 09/13/23 21:12 Heparin 5000 Units/0.5 Ml 5,000 Unit/0.5 Ml Syr SQ 10/11/23 09:59 5,000 unit BID NKECHI Administration Vancomycin HCl 1 gm in 200 mls @ 133.333 mls/hr 09/13/23 15:00 09/13/23 15:38 Vancomycin 1 Gram/200 Ml Bag IV 10/13/23 14:59 133.333 mls/hr Q48H NKECHI Administration Cefepime HCl 1 g/ Dextrose 100 mls @ 200 mls/hr 09/12/23 12:00 09/13/23 10:43 IV 10/12/23 11:59 200 mls/hr Q12HT NKECHI Administration Insulin Human Lispro 0 unit 09/11/23 02:59 Insulin Lispro 1 Unit SQ 10/11/23 02:58 UD PRN HYPERGLYCEMIA Lactobacillus Acidophilus 1 tab 09/11/23 10:00 09/13/23 08:02 Lactobacillus Acidophilus 1 Tab Tablet PO 10/11/23 09:59 1 tab DAILY NKECHI Administration Levalbuterol HCl 1.25 mg 09/11/23 07:54 09/12/23 19:39 Levalbuterol Hcl 1.25 Mg/0.5 Ml Neb 10/11/23 07:53 1.25 mg Q4HPRN PRN Administration SHORTNESS OF BREATH Levothyroxine Sodium 125 mcg 09/11/23 10:00 09/13/23 08:02 Levothyroxine Sodium 125 Mcg Tablet PO 10/11/23 09:59 125 mcg DAILY NKECHI Administration Levothyroxine Sodium 100 mcg 09/11/23 10:00 09/13/23 08:03 Levothyroxine Sodium 100 Mcg Tablet PO 10/11/23 09:59 100 mcg DAILY NKECHI Administration Metoprolol Tartrate 50 mg 09/11/23 10:00 09/13/23 08:03 Metoprolol Tartrate 50 Mg Tablet PO 10/11/23 09:59 50 mg DAILY NKECHI Administration Nystatin 1 gm 09/11/23 22:00 09/13/23 08:03 Nystatin 15 Gm Powder TP 10/11/23 21:59 1 gm BID NKECHI Administration Ondansetron HCl 4 mg 09/11/23 02:59 09/13/23 14:14 Ondansetron Hcl 4 Mg/2 Ml Vial IV 10/11/23 02:58 4 mg Q6H PRN PRN Administration NAUSEA/VOMITING Trelegy Inhaler 1 each 09/11/23 07:00 09/13/23 07:28 10/11/23 06:59 1 each 0700 NKECHI Administration Rexulti 0.5mg Tablet 1 each 09/11/23 18:00 09/13/23 15:38 PO 10/11/23 17:59 1 each 1500 NKECHI Administration Potassium Chloride 10 meq 09/11/23 10:00 09/13/23 21:13 Potassium Chloride Tab 10 Meq Tab PO 10/11/23 09:59 10 meq TID NKECHI Administration Sodium Chloride 3 ml 09/11/23 07:54 09/12/23 19:39 Sodium Cl For Inhalation 3 Ml Ud Nebule 10/11/23 07:53 3 ml UD PRN Administration Discontinued Medications Generic Name Dose Route Start Last Admin Trade Name Tiagoq PRN Reason Stop Dose Admin Albuterol Sulfate 2 puff 09/11/23 02:52 Albuterol Common Canister Inhaler IH 10/11/23 02:51 Q6H PRN SHORTNESS OF BREATH/WHEEZING Aztreonam Confirm 09/11/23 04:52 Aztreonam 1 Gm Vial Administered 09/11/23 04:53 Dose 1 gm .ROUTE .STK-MED ONE Bumetanide 2 mg 09/11/23 10:00 Bumetanide 1 Mg Tablet PO 10/11/23 09:59 TID NKECHI Diphenhydramine HCl 50 mg 09/11/23 08:00 09/12/23 08:42 Diphenhydramine Hcl 25 Mg Capsule PO 10/11/23 07:59 50 mg BIDWM NKECHI Administration Diphenhydramine HCl 25 mg 09/11/23 22:00 09/11/23 21:11 Diphenhydramine Hcl 25 Mg Capsule PO 10/11/23 21:59 25 mg HS NKECHI Administration Furosemide 40 mg 09/10/23 23:40 09/11/23 00:29 Furosemide 40 Mg/4 Ml Vial IV 09/10/23 23:41 40 mg STAT ONE Administration Furosemide Confirm 09/11/23 00:28 Furosemide 40 Mg/4 Ml Vial Administered 09/11/23 00:29 Dose 40 mg .ROUTE .STK-MED ONE Furosemide 40 mg 09/11/23 03:00 09/11/23 06:28 Furosemide 40 Mg/4 Ml Vial IV 10/11/23 02:59 Not Given Q8H NKECHI Furosemide 40 mg 09/11/23 08:00 09/12/23 08:42 Furosemide 40 Mg/4 Ml Vial IV 10/11/23 07:59 40 mg Q8H NKECHI Administration Furosemide 80 mg 09/12/23 15:15 09/13/23 05:48 Furosemide 100 Mg/10 Ml Vial IV 10/12/23 15:14 80 mg Q8HT NKECHI Administration Aztreonam 1 gm/ Sodium 100 mls @ 200 mls/hr 09/11/23 06:00 Chloride IV 09/14/23 05:59 Q6HT NKECHI Clindamycin HCl/Dextrose 600 mg in 50 mls @ 100 mls/hr 09/11/23 01:25 09/11/23 06:58 Clindamycin-D5w 600 Mg/50 Ml IV 09/11/23 01:54 Not Given STAT STA Aztreonam 1 gm/ Sodium 100 mls @ 200 mls/hr 09/11/23 06:00 09/11/23 05:07 Chloride IV 09/14/23 05:59 200 mls/hr Q8HT NKECHI Administration Clindamycin HCl/Dextrose 600 mg in 50 mls @ 100 mls/hr 09/11/23 06:00 09/11/23 06:50 Clindamycin-D5w 600 Mg/50 Ml IV 10/11/23 05:59 100 mls/hr Q8HT NKECHI Administration Dextrose Confirm 09/11/23 04:52 D5w 100ml Mini Bag 100 Ml Administered 09/11/23 04:53 Dose 100 mls @ ud IV .STK-MED ONE Clindamycin HCl/Dextrose Confirm 09/11/23 03:31 Clindamycin-D5w 600 Mg/50 Ml Administered 09/11/23 03:32 Dose 600 mg in 50 mls @ ud IV .STK-MED ONE Aztreonam 1 gm/ Sodium 100 mls @ 200 mls/hr 09/11/23 18:00 Chloride IV 09/14/23 17:59 Q12H NKECHI Piperacillin Sod/Tazobactam 100 mls @ 200 mls/hr 09/11/23 13:00 09/12/23 06:05 Sod 2.25 gm/ Sodium Chloride IV 10/11/23 12:59 200 mls/hr Q6HT NKECHI Administration Vancomycin HCl 1.25 gm in 250 mls @ 166.667 mls/hr 09/11/23 15:00 09/11/23 15:57 Vancomycin 1.25 Gm/250 Ml Bag IV 09/11/23 16:29 166.667 mls/hr 1500 NKECHI Administration Vancomycin HCl 1 gm in 200 mls @ 133.333 mls/hr 09/13/23 03:00 Vancomycin 1 Gram/200 Ml Bag IV 10/13/23 02:59 Q36H NKECHI Piperacillin Sod/Tazobactam 100 mls @ 200 mls/hr 09/12/23 14:00 Sod 2.25 gm/ Sodium Chloride IV 10/12/23 13:59 Q8HT NKECHI Miscellaneous Information 1 each 09/11/23 08:15 Medication Intervention 1 Each Each 10/11/23 08:14 .RN TO CHECK [facility] Non-Formulary Medication 1 each 09/11/23 12:47 09/11/23 16:10 Pharmacy Dose Request: Vancomycin 1 Each IV 09/11/23 12:48 1 each STAT STA Administration Non-Formulary Medication 1 each 09/11/23 12:48 09/11/23 16:10 Pharmacy Dosing Request 09/11/23 12:49 1 each STAT ONE Administration Lab/Rad Data: Laboratory Result Diagrams 09/11/23 04:06 09/11/23 04:06 Laboratory Results 09/11/23 09/11/23 09/11/23 Range/Units 07:52 06:37 04:06 WBC (4.0-10.5) x10^3/uL RBC (4.1-5.4) x10^6/uL Hgb (12.0-16.0) g/dL Hct (35-47) % MCV (78-100) fL MCH (26-32) pg MCHC (32-36) g/dL RDW (11.5-14.0) % Plt Count (150-450) x10^3/uL MPV (7.5-11.0) fL Gran % (36.0-66.0) % Immature Gran % (Auto) (0.00-0.4) % Nucleat RBC Rel Count (0.00-0.1) % Eos # (Auto) (0-0.5) x10^3/uL Immature Gran # (Auto) (0.00-0.03) x10^3u/L Absolute Lymphs (auto) (1.0-4.6) x10^3/uL Absolute Monos (auto) (0.0-1.3) x10^3/uL Absolute Nucleated RBC (0.00-0.01) x10^3u/L Lymphocytes % (24.0-44.0) % Monocytes % (0.0-12.0) % Eosinophils % (0.00-5.0) % Basophils % (0.0-0.4) % Absolute Granulocytes (1.4-6.9) x10^3/uL Basophils # (0-0.4) x10^3/uL ESR (0-20) mm/hr Sodium (137-145) mmol/L Potassium (3.5-5.1) mmol/L Chloride (98-107) mmol/L Carbon Dioxide (22-30) mmol/L Anion Gap (5-15) MEQ/L BUN (7-17) mg/dL Creatinine (0.52-1.04) mg/dL Estimated GFR ML/MIN Glucose (74-106) mg/dL POC Glucometer 140 H (74 to 106) mg/dL Lactic Acid (0.4-2.0) Calcium (8.4-10.2) mg/dL Magnesium (1.6-2.3) mg/dL Total Bilirubin (0.2-1.3) mg/dL AST (14-36) U/L ALT (0-35) U/L Alkaline Phosphatase (38-126) U/L Troponin I < 0.012 (0.000-0.034) ng/mL C-Reactive Prot, Quant 23 H (0-10) mg/L NT-Pro-B Natriuret Pep (<300) pg/mL Serum Total Protein (6.3-8.2) g/dL Albumin (3.5-5.0) g/dL Procalcitonin (0.030-0.080) ng/mL Urine Color (Yellow) Urine Appearance (Clear) Urine pH (4.6-8.0) Ur Specific [place] (1.005-1.030) Urine Protein (Negative) Urine Glucose (UA) (Negative) mg/dL Urine Ketones (Negative) Urine Blood (Negative) Urine Nitrite (Negative) Urine Bilirubin (Negative) Urine Urobilinogen (0.2) mg/dL Ur Leukocyte Esterase (Negative) Urine Microscopic RBC (0-5) /HPF Urine Microscopic WBC (0-5) /HPF Ur Epithelial Cells (None Seen) /HPF Urine Bacteria (None Seen) /HPF Urine Culture Reflexed (NO) Influenza Type A Ag (NEGATIVE) Influenza Type B Ag (NEGATIVE) RSV (PCR) (NEGATIVE) SARS-CoV-2 (PCR) (NEGATIVE) 09/11/23 09/11/23 09/11/23 Range/Units 04:06 04:06 04:06 WBC 11.6 H (4.0-10.5) x10^3/uL RBC 3.51 L (4.1-5.4) x10^6/uL Hgb 11.2 L (12.0-16.0) g/dL Hct 33.9 L (35-47) % MCV 96.6 (78-100) fL MCH 31.9 (26-32) pg MCHC 33.0 (32-36) g/dL RDW 15.2 H (11.5-14.0) % Plt Count 280 (150-450) x10^3/uL MPV 9.1 (7.5-11.0) fL Gran % 67.3 H (36.0-66.0) % Immature Gran % (Auto) 1.6 H (0.00-0.4) % Nucleat RBC Rel Count 0.0 (0.00-0.1) % Eos # (Auto) 0.23 (0-0.5) x10^3/uL Immature Gran # (Auto) 0.19 H (0.00-0.03) x10^3u/L Absolute Lymphs (auto) 2.73 (1.0-4.6) x10^3/uL Absolute Monos (auto) 0.53 (0.0-1.3) x10^3/uL Absolute Nucleated RBC 0.00 (0.00-0.01) x10^3u/L Lymphocytes % 23.6 L (24.0-44.0) % Monocytes % 4.6 (0.0-12.0) % Eosinophils % 2.0 (0.00-5.0) % Basophils % 0.9 (0.0-0.4) % Absolute Granulocytes 7.79 H (1.4-6.9) x10^3/uL Basophils # 0.10 (0-0.4) x10^3/uL ESR 73 H (0-20) mm/hr Sodium 135 L (137-145) mmol/L Potassium 3.9 D (3.5-5.1) mmol/L Chloride 97 L (98-107) mmol/L Carbon Dioxide 27 (22-30) mmol/L Anion Gap 14.8 (5-15) MEQ/L BUN 20 H (7-17) mg/dL Creatinine 1.34 H (0.52-1.04) mg/dL Estimated GFR 39.1 ML/MIN Glucose 151 H (74-106) mg/dL POC Glucometer (74 to 106) mg/dL Lactic Acid (0.4-2.0) Calcium 9.5 (8.4-10.2) mg/dL Magnesium (1.6-2.3) mg/dL Total Bilirubin (0.2-1.3) mg/dL AST (14-36) U/L ALT (0-35) U/L Alkaline Phosphatase (38-126) U/L Troponin I (0.000-0.034) ng/mL C-Reactive Prot, Quant (0-10) mg/L NT-Pro-B Natriuret Pep 476 (<300) pg/mL Serum Total Protein (6.3-8.2) g/dL Albumin (3.5-5.0) g/dL Procalcitonin (0.030-0.080) ng/mL Urine Color (Yellow) Urine Appearance (Clear) Urine pH (4.6-8.0) Ur Specific [place] (1.005-1.030) Urine Protein (Negative) Urine Glucose (UA) (Negative) mg/dL Urine Ketones (Negative) Urine Blood (Negative) Urine Nitrite (Negative) Urine Bilirubin (Negative) Urine Urobilinogen (0.2) mg/dL Ur Leukocyte Esterase (Negative) Urine Microscopic RBC (0-5) /HPF Urine Microscopic WBC (0-5) /HPF Ur Epithelial Cells (None Seen) /HPF Urine Bacteria (None Seen) /HPF Urine Culture Reflexed (NO) Influenza Type A Ag (NEGATIVE) Influenza Type B Ag (NEGATIVE) RSV (PCR) (NEGATIVE) SARS-CoV-2 (PCR) (NEGATIVE) 09/11/23 09/11/23 09/11/23 Range/Units 04:06 02:01 00:20 WBC (4.0-10.5) x10^3/uL RBC (4.1-5.4) x10^6/uL Hgb (12.0-16.0) g/dL Hct (35-47) % MCV (78-100) fL MCH (26-32) pg MCHC (32-36) g/dL RDW (11.5-14.0) % Plt Count (150-450) x10^3/uL MPV (7.5-11.0) fL Gran % (36.0-66.0) % Immature Gran % (Auto) (0.00-0.4) % Nucleat RBC Rel Count (0.00-0.1) % Eos # (Auto) (0-0.5) x10^3/uL Immature Gran # (Auto) (0.00-0.03) x10^3u/L Absolute Lymphs (auto) (1.0-4.6) x10^3/uL Absolute Monos (auto) (0.0-1.3) x10^3/uL Absolute Nucleated RBC (0.00-0.01) x10^3u/L Lymphocytes % (24.0-44.0) % Monocytes % (0.0-12.0) % Eosinophils % (0.00-5.0) % Basophils % (0.0-0.4) % Absolute Granulocytes (1.4-6.9) x10^3/uL Basophils # (0-0.4) x10^3/uL ESR (0-20) mm/hr Sodium (137-145) mmol/L Potassium (3.5-5.1) mmol/L Chloride (98-107) mmol/L Carbon Dioxide (22-30) mmol/L Anion Gap (5-15) MEQ/L BUN (7-17) mg/dL Creatinine (0.52-1.04) mg/dL Estimated GFR ML/MIN Glucose (74-106) mg/dL POC Glucometer (74 to 106) mg/dL Lactic Acid 1.8 (0.4-2.0) Calcium (8.4-10.2) mg/dL Magnesium (1.6-2.3) mg/dL Total Bilirubin (0.2-1.3) mg/dL AST (14-36) U/L ALT (0-35) U/L Alkaline Phosphatase (38-126) U/L Troponin I < 0.012 (0.000-0.034) ng/mL C-Reactive Prot, Quant (0-10) mg/L NT-Pro-B Natriuret Pep (<300) pg/mL Serum Total Protein (6.3-8.2) g/dL Albumin (3.5-5.0) g/dL Procalcitonin (0.030-0.080) ng/mL Urine Color Yellow (Yellow) Urine Appearance Turbid A (Clear) Urine pH 5.0 (4.6-8.0) Ur Specific [place] 1.015 (1.005-1.030) Urine Protein 100 A (Negative) Urine Glucose (UA) Negative (Negative) mg/dL Urine Ketones Negative (Negative) Urine Blood Small A (Negative) Urine Nitrite Positive A (Negative) Urine Bilirubin Negative (Negative) Urine Urobilinogen 0.2 (0.2) mg/dL Ur Leukocyte Esterase Large A (Negative) Urine Microscopic RBC 0-2 (0-5) /HPF Urine Microscopic WBC >100 A (0-5) /HPF Ur Epithelial Cells None Seen (None Seen) /HPF Urine Bacteria Many A (None Seen) /HPF Urine Culture Reflexed ORDERED SEPARATELY (NO) Influenza Type A Ag (NEGATIVE) Influenza Type B Ag (NEGATIVE) RSV (PCR) (NEGATIVE) SARS-CoV-2 (PCR) (NEGATIVE) 09/11/23 09/10/23 09/10/23 Range/Units 00:05 23:55 23:55 WBC (4.0-10.5) x10^3/uL RBC (4.1-5.4) x10^6/uL Hgb (12.0-16.0) g/dL Hct (35-47) % MCV (78-100) fL MCH (26-32) pg MCHC (32-36) g/dL RDW (11.5-14.0) % Plt Count (150-450) x10^3/uL MPV (7.5-11.0) fL Gran % (36.0-66.0) % Immature Gran % (Auto) (0.00-0.4) % Nucleat RBC Rel Count (0.00-0.1) % Eos # (Auto) (0-0.5) x10^3/uL Immature Gran # (Auto) (0.00-0.03) x10^3u/L Absolute Lymphs (auto) (1.0-4.6) x10^3/uL Absolute Monos (auto) (0.0-1.3) x10^3/uL Absolute Nucleated RBC (0.00-0.01) x10^3u/L Lymphocytes % (24.0-44.0) % Monocytes % (0.0-12.0) % Eosinophils % (0.00-5.0) % Basophils % (0.0-0.4) % Absolute Granulocytes (1.4-6.9) x10^3/uL Basophils # (0-0.4) x10^3/uL ESR (0-20) mm/hr Sodium (137-145) mmol/L Potassium (3.5-5.1) mmol/L Chloride (98-107) mmol/L Carbon Dioxide (22-30) mmol/L Anion Gap (5-15) MEQ/L BUN (7-17) mg/dL Creatinine (0.52-1.04) mg/dL Estimated GFR ML/MIN Glucose (74-106) mg/dL POC Glucometer (74 to 106) mg/dL Lactic Acid (0.4-2.0) Calcium (8.4-10.2) mg/dL Magnesium (1.6-2.3) mg/dL Total Bilirubin (0.2-1.3) mg/dL AST (14-36) U/L ALT (0-35) U/L Alkaline Phosphatase (38-126) U/L Troponin I < 0.012 (0.000-0.034) ng/mL C-Reactive Prot, Quant (0-10) mg/L NT-Pro-B Natriuret Pep 412 (<300) pg/mL Serum Total Protein (6.3-8.2) g/dL Albumin (3.5-5.0) g/dL Procalcitonin 0.083 H (0.030-0.080) ng/mL Urine Color (Yellow) Urine Appearance (Clear) Urine pH (4.6-8.0) Ur Specific [place] (1.005-1.030) Urine Protein (Negative) Urine Glucose (UA) (Negative) mg/dL Urine Ketones (Negative) Urine Blood (Negative) Urine Nitrite (Negative) Urine Bilirubin (Negative) Urine Urobilinogen (0.2) mg/dL Ur Leukocyte Esterase (Negative) Urine Microscopic RBC (0-5) /HPF Urine Microscopic WBC (0-5) /HPF Ur Epithelial Cells (None Seen) /HPF Urine Bacteria (None Seen) /HPF Urine Culture Reflexed (NO) Influenza Type A Ag (NEGATIVE) Influenza Type B Ag (NEGATIVE) RSV (PCR) (NEGATIVE) SARS-CoV-2 (PCR) (NEGATIVE) 09/10/23 09/10/23 09/10/23 Range/Units 23:55 23:55 23:54 WBC 11.4 H (4.0-10.5) x10^3/uL RBC 3.93 L (4.1-5.4) x10^6/uL Hgb 12.2 (12.0-16.0) g/dL Hct 38.5 (35-47) % MCV 98.0 (78-100) fL MCH 31.0 (26-32) pg MCHC 31.7 L (32-36) g/dL RDW 15.3 H (11.5-14.0) % Plt Count 281 (150-450) x10^3/uL MPV 8.6 (7.5-11.0) fL Gran % 62.5 (36.0-66.0) % Immature Gran % (Auto) 1.6 H (0.00-0.4) % Nucleat RBC Rel Count 0.0 (0.00-0.1) % Eos # (Auto) 0.36 (0-0.5) x10^3/uL Immature Gran # (Auto) 0.18 H (0.00-0.03) x10^3u/L Absolute Lymphs (auto) 3.06 (1.0-4.6) x10^3/uL Absolute Monos (auto) 0.56 (0.0-1.3) x10^3/uL Absolute Nucleated RBC 0.00 (0.00-0.01) x10^3u/L Lymphocytes % 26.9 (24.0-44.0) % Monocytes % 4.9 (0.0-12.0) % Eosinophils % 3.2 (0.00-5.0) % Basophils % 0.9 (0.0-0.4) % Absolute Granulocytes 7.10 H (1.4-6.9) x10^3/uL Basophils # 0.10 (0-0.4) x10^3/uL ESR (0-20) mm/hr Sodium 135 L (137-145) mmol/L Potassium 4.9 (3.5-5.1) mmol/L Chloride 95 L (98-107) mmol/L Carbon Dioxide 28 (22-30) mmol/L Anion Gap 16.6 H (5-15) MEQ/L BUN 22 H (7-17) mg/dL Creatinine 1.42 H (0.52-1.04) mg/dL Estimated GFR 36.5 ML/MIN Glucose 197 H (74-106) mg/dL POC Glucometer (74 to 106) mg/dL Lactic Acid 3.6 H (0.4-2.0) Calcium 10.1 (8.4-10.2) mg/dL Magnesium 1.8 (1.6-2.3) mg/dL Total Bilirubin 0.40 (0.2-1.3) mg/dL AST 26 (14-36) U/L ALT 17 (0-35) U/L Alkaline Phosphatase 168 H (38-126) U/L Troponin I (0.000-0.034) ng/mL C-Reactive Prot, Quant (0-10) mg/L NT-Pro-B Natriuret Pep (<300) pg/mL Serum Total Protein 7.7 (6.3-8.2) g/dL Albumin 4.2 (3.5-5.0) g/dL Procalcitonin (0.030-0.080) ng/mL Urine Color (Yellow) Urine Appearance (Clear) Urine pH (4.6-8.0) Ur Specific [place] (1.005-1.030) Urine Protein (Negative) Urine Glucose (UA) (Negative) mg/dL Urine Ketones (Negative) Urine Blood (Negative) Urine Nitrite (Negative) Urine Bilirubin (Negative) Urine Urobilinogen (0.2) mg/dL Ur Leukocyte Esterase (Negative) Urine Microscopic RBC (0-5) /HPF Urine Microscopic WBC (0-5) /HPF Ur Epithelial Cells (None Seen) /HPF Urine Bacteria (None Seen) /HPF Urine Culture Reflexed (NO) Influenza Type A Ag (NEGATIVE) Influenza Type B Ag (NEGATIVE) RSV (PCR) (NEGATIVE) SARS-CoV-2 (PCR) (NEGATIVE) 09/10/23 Range/Units 00:07 WBC (4.0-10.5) x10^3/uL RBC (4.1-5.4) x10^6/uL Hgb (12.0-16.0) g/dL Hct (35-47) % MCV (78-100) fL MCH (26-32) pg MCHC (32-36) g/dL RDW (11.5-14.0) % Plt Count (150-450) x10^3/uL MPV (7.5-11.0) fL Gran % (36.0-66.0) % Immature Gran % (Auto) (0.00-0.4) % Nucleat RBC Rel Count (0.00-0.1) % Eos # (Auto) (0-0.5) x10^3/uL Immature Gran # (Auto) (0.00-0.03) x10^3u/L Absolute Lymphs (auto) (1.0-4.6) x10^3/uL Absolute Monos (auto) (0.0-1.3) x10^3/uL Absolute Nucleated RBC (0.00-0.01) x10^3u/L Lymphocytes % (24.0-44.0) % Monocytes % (0.0-12.0) % Eosinophils % (0.00-5.0) % Basophils % (0.0-0.4) % Absolute Granulocytes (1.4-6.9) x10^3/uL Basophils # (0-0.4) x10^3/uL ESR (0-20) mm/hr Sodium (137-145) mmol/L Potassium (3.5-5.1) mmol/L Chloride (98-107) mmol/L Carbon Dioxide (22-30) mmol/L Anion Gap (5-15) MEQ/L BUN (7-17) mg/dL Creatinine (0.52-1.04) mg/dL Estimated GFR ML/MIN Glucose (74-106) mg/dL POC Glucometer (74 to 106) mg/dL Lactic Acid (0.4-2.0) Calcium (8.4-10.2) mg/dL Magnesium (1.6-2.3) mg/dL Total Bilirubin (0.2-1.3) mg/dL AST (14-36) U/L ALT (0-35) U/L Alkaline Phosphatase (38-126) U/L Troponin I (0.000-0.034) ng/mL C-Reactive Prot, Quant (0-10) mg/L NT-Pro-B Natriuret Pep (<300) pg/mL Serum Total Protein (6.3-8.2) g/dL Albumin (3.5-5.0) g/dL Procalcitonin (0.030-0.080) ng/mL Urine Color (Yellow) Urine Appearance (Clear) Urine pH (4.6-8.0) Ur Specific [place] (1.005-1.030) Urine Protein (Negative) Urine Glucose (UA) (Negative) mg/dL Urine Ketones (Negative) Urine Blood (Negative) Urine Nitrite (Negative) Urine Bilirubin (Negative) Urine Urobilinogen (0.2) mg/dL Ur Leukocyte Esterase (Negative) Urine Microscopic RBC (0-5) /HPF Urine Microscopic WBC (0-5) /HPF Ur Epithelial Cells (None Seen) /HPF Urine Bacteria (None Seen) /HPF Urine Culture Reflexed (NO) Influenza Type A Ag NEGATIVE (NEGATIVE) Influenza Type B Ag NEGATIVE (NEGATIVE) RSV (PCR) NEGATIVE (NEGATIVE) SARS-CoV-2 (PCR) NEGATIVE (NEGATIVE) - Progress Progress: unchanged, re-examined Progress Note: 09/10/23 23:57 83 years old female with multiple medical problems including congestive heart failure with chronic bilateral lower extremity swelling, PE, taken off of Cat brittany last few months presented in the ER with chief complaint of worsening bilateral lower extremity swelling for almost 10 days. Patient was recently evaluated at 's office, was increased the dose of Bumex but does not seem working. Patient denies any chest pain or difficulty breathing. No fever or chills reported. Patient report has increasing swelling and it makes small blister which break open with exposed raw surface underneath. Denies any fall or trauma recently. 09/11/23 01:32 Patient is not in any distress. She is given a small dose of 40 mg IV Lasix. Work-up showed white count of 11, chemistry showed CKD with lactate of 3.0 and positive procalcitonin with normal BNP and troponins. Chest x-ray showed cardiomegaly with chronic changes and no acute findings. I believe patient has a combination of cellulitis with edema secondary to CHF. Started her on antibiotics as aztreonam and clindamycin. Discussed with Dr. Gonzalez, reviewed history, work-up and agreed with admission. I have discussed the results of work-up with patient and family and need for admission which they understand and agree with it. Discussed with : Maverick Will see patient in: hospital (observation) Counseled pt/family regarding: lab results, diagnosis, rad results Medical Desision Making - Independent Historian Additional History obtained from: Child - Discussion of managment Care discussed with:: hospitalist (Dr. Gonzalez) Reviewed:: Test results Agreed on:: Treatment plan Will see patient: in hospital - Diagnostic Testing Diagnostic test were ordered, analyzed, and reviewed by me: Yes Radiological Interpretation: Interpreted by me, Reviewed by me - Risk of complications The pt has a high risk of morbidity or mortality based on: Decision regarding hospitilization or escalation of hosp level of care - Departure Departure Disposition: Observation Clinical Impression: Bilateral lower leg cellulitis, CHF (congestive heart failure) Condition: Fair Critical Care Time: No
[2023-09-11 00:02] LABS: BASOPHIL % 0.9 % (0.0-0.4); Eosinophil % 3.2 % (0.00-5.0); Eosinophil (Absolute #) 0.36 x10^3/uL (0-0.5); Hematocrit 38.5 % (35-47); Hemoglobin 12.2 g/dL (12.0-16.0); IMMATURE GRAN # 0.18 x10^3u/L (0.00-0.03); IMMATURE GRAN % 1.6 % (0.00-0.4); Lymphocyte (Absolute #) 3.06 x10^3/uL (1.0-4.6); Lymphocytes % 26.9 % (24.0-44.0); Mean Corpuscular Hgb Concent. 31.7 g/dL (32-36); Mean Platelet Volume 8.6 fL (7.5-11.0); Monocyte (Absolute #) 0.56 x10^3/uL (0.0-1.3); Monocytes % 4.9 % (0.0-12.0); Neutrophil % 62.5 % (36.0-66.0); Platelet Count 281 x10^3/uL (150-450); Red Blood Count 3.93 x10^6/uL (4.1-5.4); Red Cell Distribution Width 15.3 % (11.5-14.0); White Blood Count 11.4 x10^3/uL (4.0-10.5)
[2023-09-11 00:23] LABS: ALBUMIN 4.2 g/dL (3.5-5.0); ANION GAP 16.6 MEQ/L (5-15); BILIRUBIN,TOTAL 0.4 mg/dL (0.2-1.3); Calcium 10.1 mg/dL (8.4-10.2); Creatinine 1 1.42 mg/dL (0.52-1.04); EST GLOMERULAR FILTRATION RATE 36.5 ML/MIN; MAGNESIUM 1.8 mg/dL (1.6-2.3); Potassium 4.9 mmol/L (3.5-5.1); Total Protein 7.7 g/dL (6.3-8.2)
[2023-09-11] MEDS ORDERED: Lasix 40 MG/4 ML ONE (00:28)
[2023-09-11 00:43] LABS: Appearance Turbid (Clear); Bacteria Many /HPF (None Seen); Bilirubin Negative (Negative); Blood Small (Negative); Epithelial Cells None Seen /HPF (None Seen); Glucose, Urine Negative (Negative); Ketones Negative (Negative); Leukocyte Esterase Large (Negative); Nitrite Positive (Negative); Protein,Urine Dip 100 (Negative); RBC 0-2 /HPF (0-5); Specific Gravity 1.015 (1.005-1.030); Urobilinogen 0.2 mg/dL (0.2); WBC >100 /HPF (0-5)
[2023-09-11 00:44] LABS: ADD URINE CULTURE? ORDERED SEPARATELY (NO)
[2023-09-11 00:48] LABS: INFLUENZA A NEGATIVE (NEGATIVE); INFLUENZA B NEGATIVE (NEGATIVE); RESPIRATORY SYNCTIAL VIRUS NEGATIVE (NEGATIVE); SARS-CoV-2 Xpert Express NEGATIVE (NEGATIVE)
[2023-09-11] MEDS ORDERED: CLINDAMYCIN-D5W 600 MG/50 ML*** 600 MG/50 ML BAG IV STA (01:25)
[2023-09-11] MEDS ORDERED: VENTOLIN COMMON CANISTER IH PRN (02:52)
[2023-09-11] MEDS ORDERED: Docusate Sodium 100 MG PO PRN (02:59)
[2023-09-11] MEDS ORDERED: HUMALOG SQ PRN (02:59)
[2023-09-11] MEDS ORDERED: FEVERALL 650 MG PR PRN (02:59)
[2023-09-11] MEDS ORDERED: Zofran 4 MG/2 ML VIAL IV PRN (02:59)
[2023-09-11] MEDS ORDERED: Cleocin Phosphate IV 600 MG/4 ML IV SCH (03:00)
[2023-09-11] MEDS ORDERED: Lasix 40 MG/4 ML IV SCH (03:00)
--- NOTE | 2023-09-11 03:18 | PCM.HP ---
History of Present Illness - Chief Complaint Chief Complaint: Lower extremity cellulitis, CHF Date: 09/11/23 History of Present Illness: is a 83 year old female with a history of CHF (follows with Dr. Hummel), prior PE (off anticoagulation due to skin bleeding issues), recent UTI (in 07/2023), and prior MRSA leg skin infection (approximately 5 years ago) who now presents to the hospital with worsening bilateral leg edema for 10 days. The patient was seen by Dr. Green approximately one week ago with an increase in Bumex, but the swelling has still worsened. The patient has not reported fever, chest pain, or dyspnea. There has been a pungent odor in the urine reported and some darker yellow color. No recent fall or skin trauma reported, but the patient has had blistering of the skin on the leg with the worsening edema. - Review of Systems Constitutional: No Symptoms Eyes: No Symptoms Ears, Nose, & Throat: No Symptoms Respiratory: No Symptoms Cardiac: Edema Abdominal/Gastrointestinal: No Symptoms Genitourinary Symptoms: No Symptoms Musculoskeletal: No Symptoms Skin: Cellulitis Neurological: No Symptoms Psychological: No Symptoms Endocrine: No Symptoms Hematologic/Lymphatic: No Symptoms Immunological/Allergic: No Symptoms All Other Systems: Reviewed and Negative Medications & Allergies Home Medications: Home Medication List Allopurinol 300 mg [Zyloprim 300 mg] 300 mg PO DAILY 11/30/16 [History Con firmed 09/10/23] Levothyroxine Sodium [Synthroid] 225 mcg PO DAILY 11/30/16 [History Confirmed 09/10/23] Metformin HCl 500 mg PO DAILY 04/24/18 [History Confirmed 09/10/23] Acetaminophen/Diphenhydramine [Tylenol Pm Exstr 500-25Mg Cplt] 1 tab PO HS 09/18/21 [History Confirmed 09/10/23] Albuterol Sulfate [Proair Hfa] 2 puff IH Q6H PRN 09/18/21 [History Confirmed 09/10/23] Diphenhydramine HCl [Benadryl Allergy] 50 mg PO BID 04/19/22 [History Confirmed 09/10/23] Potassium Chloride 10 meq PO TID 04/19/22 [History Confirmed 09/10/23] Metoprolol Tartrate 50 mg [Lopressor 50 MG] 50 mg PO DAILY 11/21/22 [History Confirmed 09/10/23] Fluticasone/Umeclidin/Vilanter [Trelegy Ellipta 100-62.5-25] 1 inh PO DAILY 07/15/23 [History Confirmed 09/10/23] Brexpiprazole [Rexulti] 0.5 mg PO DAILY 09/10/23 [History Confirmed 09/10/23] Bumetanide 1 mg [Bumex 1 mg] 2 mg PO TID 09/10/23 [History Confirmed 09/10/23] Hydrocodone/Acetaminophen [Hydrocodone-Acetamin 7.5-325] 1 tab PO Q6-8HPRN PRN 09/10/23 [History Confirmed 09/10/23] Amlodipine Besylate 2.5 mg PO DAILY 09/11/23 [History Confirmed 09/11/23] Aspirin EC 81 mg [Ecotrin 81 mg] 1 tab PO DAILY 09/11/23 [History Confirmed 09/11/23] Allergies/Adverse Reactions: Allergies Allergy/AdvReac Type Severity Reaction Status Date / Time amoxicillin Allergy Verified 09/10/23 23:26 levofloxacin [From Levaquin] Allergy Verified 09/10/23 23:26 ofloxacin [From Floxin] Allergy Verified 09/10/23 23:26 Sulfa (Sulfonamide Allergy Verified 09/10/23 23:26 Antibiotics) [Sulfa(Sulfonamide Antibiotics)] - Past Medical History Past Medical History: Yes Neurological History: Peripheral Neuropathy ENT History: No Pertinent History Cardiac History: Arrhythmia, Hypertension Respiratory History: COPD Endocrine Medical History: Diabetes Type II, Hypothyroidism Musculoskelatal History: Arthritis, Degenerative Disk Disease, Osteoarthritis GI Medical History: Diverticulitis, Diverticulosis, Hemorrhoids, Hernia, Other History: Renal Disease Pyscho-Social History: No Pertinent History Reproductive Disorders: No Pertinent History Comment: PE, ARRYTHMIA, RENAL DZ, DDD, RA, OA, MYELODSYPLASTIC SYNDROME. PSH: CARDIAC CATH, HYSTERECTOMY, LUMPECTOMY, BASAL AND SQUAMOUS CELL CA. - Past Surgical History Past Surgical History: Yes Neuro Surgical History: No Pertinent History Cardiac History: Cardiac Catheterization Respiratory Surgery: No Pertinent History GI Surgical History: Other Genitourinary Surgical Hx: No Pertinent History Musculskeletal Surgical Hx: No Pertinent History Female Surgical History: Hysterectomy, Lumpectomy Other Surgical History: breast tumor removed, tumor removed from back benign, 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, cauterization due to intestinal bleed, colon ruptured was septic and has colostomy - Social History Smoking Status: Never smoker Exposure to second hand smoke: Yes Alcohol: None Drug Use: none Significant Family History: no pertinent family hx - Physical Exam Vital Signs: Vital Signs - 24 hr Temp Pulse Resp BP BP Pulse Ox 09/11/23 01:37 99 09/11/23 00:05 97 H 19 149/86 99 09/10/23 23:12 140/113 09/10/23 23:09 98.1 F 117 H 22 140/113 99 General Appearance: no apparent distress, alert Neurologic Exam: alert, oriented x 3, cooperative, emt intermediate II-XII nml as tested, normal mood/affect, nml cerebellar function Eye Exam: PERRL/EOMI, eyes nml inspection Ears, Nose, Throat Exam: normal ENT inspection Neck Exam: normal inspection, non-tender, supple, full range of motion Respiratory Exam: normal breath sounds, lungs clear Cardiovascular Exam: regular rate/rhythm, normal heart sounds, edema Gastrointestinal/Abdomen Exam: soft, normal bowel sounds Back Exam: normal range of motion Extremity Exam: normal inspection, normal range of motion Skin Exam: rash (left leg with open blistering and erythema (borders to be marked)) Results - Labs Lab/Micro Results: Lab Results-Last 24 Hours 09/10/23 09/10/23 09/10/23 Range/Units 00:07 23:54 23:55 WBC 11.4 H (4.0-10.5) x10^3/uL RBC 3.93 L (4.1-5.4) x10^6/uL Hgb 12.2 (12.0-16.0) g/dL Hct 38.5 (35-47) % MCV 98.0 (78-100) fL MCH 31.0 (26-32) pg MCHC 31.7 L (32-36) g/dL RDW 15.3 H (11.5-14.0) % Plt Count 281 (150-450) x10^3/uL MPV 8.6 (7.5-11.0) fL Gran % 62.5 (36.0-66.0) % Immature Gran % (Auto) 1.6 H (0.00-0.4) % Nucleat RBC Rel Count 0.0 (0.00-0.1) % Eos # (Auto) 0.36 (0-0.5) x10^3/uL Immature Gran # (Auto) 0.18 H (0.00-0.03) x10^3u/L Absolute Lymphs (auto) 3.06 (1.0-4.6) x10^3/uL Absolute Monos (auto) 0.56 (0.0-1.3) x10^3/uL Absolute Nucleated RBC 0.00 (0.00-0.01) x10^3u/L Lymphocytes % 26.9 (24.0-44.0) % Monocytes % 4.9 (0.0-12.0) % Eosinophils % 3.2 (0.00-5.0) % Basophils % 0.9 (0.0-0.4) % Absolute Granulocytes 7.10 H (1.4-6.9) x10^3/uL Basophils # 0.10 (0-0.4) x10^3/uL Sodium (137-145) mmol/L Potassium (3.5-5.1) mmol/L Chloride (98-107) mmol/L Carbon Dioxide (22-30) mmol/L Anion Gap (5-15) MEQ/L BUN (7-17) mg/dL Creatinine (0.52-1.04) mg/dL Estimated GFR ML/MIN Glucose (74-106) mg/dL Lactic Acid 3.6 H (0.4-2.0) Calcium (8.4-10.2) mg/dL Magnesium (1.6-2.3) mg/dL Total Bilirubin (0.2-1.3) mg/dL AST (14-36) U/L ALT (0-35) U/L Alkaline Phosphatase (38-126) U/L Troponin I (0.000-0.034) ng/mL NT-Pro-B Natriuret Pep (<300) pg/mL Serum Total Protein (6.3-8.2) g/dL Albumin (3.5-5.0) g/dL Procalcitonin (0.030-0.080) ng/mL Urine Color (Yellow) Urine Appearance (Clear) Urine pH (4.6-8.0) Ur Specific [place] (1.005-1.030) Urine Protein (Negative) Urine Glucose (UA) (Negative) mg/dL Urine Ketones (Negative) Urine Blood (Negative) Urine Nitrite (Negative) Urine Bilirubin (Negative) Urine Urobilinogen (0.2) mg/dL Ur Leukocyte Esterase (Negative) Urine Microscopic RBC (0-5) /HPF Urine Microscopic WBC (0-5) /HPF Ur Epithelial Cells (None Seen) /HPF Urine Bacteria (None Seen) /HPF Urine Culture Reflexed (NO) Influenza Type A Ag NEGATIVE (NEGATIVE) Influenza Type B Ag NEGATIVE (NEGATIVE) RSV (PCR) NEGATIVE (NEGATIVE) SARS-CoV-2 (PCR) NEGATIVE (NEGATIVE) 09/10/23 09/10/23 09/10/23 Range/Units 23:55 23:55 23:55 WBC (4.0-10.5) x10^3/uL RBC (4.1-5.4) x10^6/uL Hgb (12.0-16.0) g/dL Hct (35-47) % MCV (78-100) fL MCH (26-32) pg MCHC (32-36) g/dL RDW (11.5-14.0) % Plt Count (150-450) x10^3/uL MPV (7.5-11.0) fL Gran % (36.0-66.0) % Immature Gran % (Auto) (0.00-0.4) % Nucleat RBC Rel Count (0.00-0.1) % Eos # (Auto) (0-0.5) x10^3/uL Immature Gran # (Auto) (0.00-0.03) x10^3u/L Absolute Lymphs (auto) (1.0-4.6) x10^3/uL Absolute Monos (auto) (0.0-1.3) x10^3/uL Absolute Nucleated RBC (0.00-0.01) x10^3u/L Lymphocytes % (24.0-44.0) % Monocytes % (0.0-12.0) % Eosinophils % (0.00-5.0) % Basophils % (0.0-0.4) % Absolute Granulocytes (1.4-6.9) x10^3/uL Basophils # (0-0.4) x10^3/uL Sodium 135 L (137-145) mmol/L Potassium 4.9 (3.5-5.1) mmol/L Chloride 95 L (98-107) mmol/L Carbon Dioxide 28 (22-30) mmol/L Anion Gap 16.6 H (5-15) MEQ/L BUN 22 H (7-17) mg/dL Creatinine 1.42 H (0.52-1.04) mg/dL Estimated GFR 36.5 ML/MIN Glucose 197 H (74-106) mg/dL Lactic Acid (0.4-2.0) Calcium 10.1 (8.4-10.2) mg/dL Magnesium 1.8 (1.6-2.3) mg/dL Total Bilirubin 0.40 (0.2-1.3) mg/dL AST 26 (14-36) U/L ALT 17 (0-35) U/L Alkaline Phosphatase 168 H (38-126) U/L Troponin I < 0.012 (0.000-0.034) ng/mL NT-Pro-B Natriuret Pep 412 (<300) pg/mL Serum Total Protein 7.7 (6.3-8.2) g/dL Albumin 4.2 (3.5-5.0) g/dL Procalcitonin (0.030-0.080) ng/mL Urine Color (Yellow) Urine Appearance (Clear) Urine pH (4.6-8.0) Ur Specific [place] (1.005-1.030) Urine Protein (Negative) Urine Glucose (UA) (Negative) mg/dL Urine Ketones (Negative) Urine Blood (Negative) Urine Nitrite (Negative) Urine Bilirubin (Negative) Urine Urobilinogen (0.2) mg/dL Ur Leukocyte Esterase (Negative) Urine Microscopic RBC (0-5) /HPF Urine Microscopic WBC (0-5) /HPF Ur Epithelial Cells (None Seen) /HPF Urine Bacteria (None Seen) /HPF Urine Culture Reflexed (NO) Influenza Type A Ag (NEGATIVE) Influenza Type B Ag (NEGATIVE) RSV (PCR) (NEGATIVE) SARS-CoV-2 (PCR) (NEGATIVE) 09/11/23 09/11/23 Range/Units 00:05 00:20 WBC (4.0-10.5) x10^3/uL RBC (4.1-5.4) x10^6/uL Hgb (12.0-16.0) g/dL Hct (35-47) % MCV (78-100) fL MCH (26-32) pg MCHC (32-36) g/dL RDW (11.5-14.0) % Plt Count (150-450) x10^3/uL MPV (7.5-11.0) fL Gran % (36.0-66.0) % Immature Gran % (Auto) (0.00-0.4) % Nucleat RBC Rel Count (0.00-0.1) % Eos # (Auto) (0-0.5) x10^3/uL Immature Gran # (Auto) (0.00-0.03) x10^3u/L Absolute Lymphs (auto) (1.0-4.6) x10^3/uL Absolute Monos (auto) (0.0-1.3) x10^3/uL Absolute Nucleated RBC (0.00-0.01) x10^3u/L Lymphocytes % (24.0-44.0) % Monocytes % (0.0-12.0) % Eosinophils % (0.00-5.0) % Basophils % (0.0-0.4) % Absolute Granulocytes (1.4-6.9) x10^3/uL Basophils # (0-0.4) x10^3/uL Sodium (137-145) mmol/L Potassium (3.5-5.1) mmol/L Chloride (98-107) mmol/L Carbon Dioxide (22-30) mmol/L Anion Gap (5-15) MEQ/L BUN (7-17) mg/dL Creatinine (0.52-1.04) mg/dL Estimated GFR ML/MIN Glucose (74-106) mg/dL Lactic Acid (0.4-2.0) Calcium (8.4-10.2) mg/dL Magnesium (1.6-2.3) mg/dL Total Bilirubin (0.2-1.3) mg/dL AST (14-36) U/L ALT (0-35) U/L Alkaline Phosphatase (38-126) U/L Troponin I (0.000-0.034) ng/mL NT-Pro-B Natriuret Pep (<300) pg/mL Serum Total Protein (6.3-8.2) g/dL Albumin (3.5-5.0) g/dL Procalcitonin 0.083 H (0.030-0.080) ng/mL Urine Color Yellow (Yellow) Urine Appearance Turbid A (Clear) Urine pH 5.0 (4.6-8.0) Ur Specific [place] 1.015 (1.005-1.030) Urine Protein 100 A (Negative) Urine Glucose (UA) Negative (Negative) mg/dL Urine Ketones Negative (Negative) Urine Blood Small A (Negative) Urine Nitrite Positive A (Negative) Urine Bilirubin Negative (Negative) Urine Urobilinogen 0.2 (0.2) mg/dL Ur Leukocyte Esterase Large A (Negative) Urine Microscopic RBC 0-2 (0-5) /HPF Urine Microscopic WBC >100 A (0-5) /HPF Ur Epithelial Cells None Seen (None Seen) /HPF Urine Bacteria Many A (None Seen) /HPF Urine Culture Reflexed ORDERED SEPARATELY (NO) Influenza Type A Ag (NEGATIVE) Influenza Type B Ag (NEGATIVE) RSV (PCR) (NEGATIVE) SARS-CoV-2 (PCR) (NEGATIVE) - Radiology Impressions Radiology Exams & Impressions: Radiology Procedures Category Date Time Status CHEST 1 VIEW (PORTABLE) Stat Exams 09/10/23 00:40 Taken Assessment/Plan (1) Acute exacerbation of CHF (congestive heart failure) Current Visit: Yes Status: Acute Assessment & Plan: IV Lasix. Patient's Bumex has been increased recently. Will recheck BNP and monitor volume status, edema and weight Code(s): I50.9 - HEART FAILURE, UNSPECIFIED (2) Bilateral lower leg cellulitis Current Visit: Yes Status: Acute Assessment & Plan: Has history of MRSA. IV Clindamycin. Gerald borders. Skin/wound care. Lactobacillus for probiotics. Code(s): L03.116 - CELLULITIS OF LEFT LOWER LIMB; L03.115 - CELLULITIS OF RIGHT LOWER LIMB (3) UTI (urinary tract infection) Current Visit: No Status: Acute Qualifiers: Assessment & Plan: Follow culture. IV Aztreonam continued from ED treatment initiation. Code(s): N39.0 - URINARY TRACT INFECTION, SITE NOT SPECIFIED Telemedicine Encounter - Telemedicine Encounter Telemedicine Encounter: The entirety of this encounter was performed via Telemedicine"
[2023-09-11] MEDS ORDERED: CLINDAMYCIN-D5W 600 MG/50 ML*** 600 MG/50 ML BAG IV ONE (03:31)
[2023-09-11 04:46] LABS: ANION GAP 14.8 MEQ/L (5-15); Calcium 9.5 mg/dL (8.4-10.2); Creatinine 1 1.34 mg/dL (0.52-1.04); EST GLOMERULAR FILTRATION RATE 39.1 ML/MIN; Potassium 3.9 mmol/L (3.5-5.1)
[2023-09-11 04:49] LABS: Absolute Neutrophil Ct (ANC) 7.79 x10^3/uL (1.4-6.9); BASOPHIL % 0.9 % (0.0-0.4); Eosinophil (Absolute #) 0.23 x10^3/uL (0-0.5); Hematocrit 33.9 % (35-47); Hemoglobin 11.2 g/dL (12.0-16.0); IMMATURE GRAN # 0.19 x10^3u/L (0.00-0.03); IMMATURE GRAN % 1.6 % (0.00-0.4); Lymphocyte (Absolute #) 2.73 x10^3/uL (1.0-4.6); Lymphocytes % 23.6 % (24.0-44.0); Mean Cell Volume 96.6 fL (78-100); Mean Corpuscular Hemoglobin 31.9 pg (26-32); Mean Platelet Volume 9.1 fL (7.5-11.0); Monocyte (Absolute #) 0.53 x10^3/uL (0.0-1.3); Monocytes % 4.6 % (0.0-12.0); Neutrophil % 67.3 % (36.0-66.0); Platelet Count 280 x10^3/uL (150-450); Red Blood Count 3.51 x10^6/uL (4.1-5.4); Red Cell Distribution Width 15.2 % (11.5-14.0); White Blood Count 11.6 x10^3/uL (4.0-10.5)
[2023-09-11] MEDS ORDERED: AZACTAM 1 GM ONE (04:52)
[2023-09-11] MEDS ORDERED: D5w 100ML Mini Bag 100 ML 100 ML IV ONE (04:52)
--- NOTE | 2023-09-11 05:25 | PCM.NOTE ---
Date and Time: 09/11/23518 Subjective Assessment: HPI: is a 83 year old female with a history of CHF (follows with Dr. Hummel), prior PE (off anticoagulation due to skin bleeding issues), recent UTI (in 07/2023), and prior MRSA leg skin infection (approximately 5 years ago) who now presents to the hospital with worsening bilateral leg edema for 10 days. The patient was seen by Dr. Green approximately one week ago with an increase in Bumex, but the swelling has still worsened. The patient has not reported fever, chest pain, or dyspnea. There has been a pungent odor in the urine reported and some darker yellow color. No recent fall or skin trauma reported, but the patient has had blistering of the skin on the leg with the worsening edema. Admitted for CHF exacerbation and UTI, currently being treated with IV Aztreonam /clindamycin, and IV lasix. 09/11/23: Met with patient bedside. Endorses continued BLE pain. Upon examination BLE is 3+ pitting with weeping/erythema/warmth. Multiple open wounds/skin tears. She also states she has excoriation under bilateral breast. Denies dysuria/hematuria. Does have pressure wounds/incontinence dermatitis to bilateral buttocks. Denies fever,cp, abdominal pain, BOYD, dizziness, N/V/D. - Review of Systems Constitutional: No Symptoms Eyes: No Symptoms Ears, Nose, & Throat: No Symptoms Respiratory: No Symptoms Cardiac: Edema Abdominal/Gastrointestinal: No Symptoms Genitourinary Symptoms: No Symptoms Musculoskeletal: Back Pain Skin: Cellulitis, Other (excoration under bilateral breast) Neurological: No Symptoms Psychological: No Symptoms Endocrine: No Symptoms Objective Exam General Appearance: no apparent distress Neurologic Exam: alert, oriented x 3, cooperative Skin Exam: pale Eye Exam: PERRL Ears, Nose, Throat Exam: normal ENT inspection Neck Exam: normal inspection Respiratory Exam: crackles/rales Cardiovascular Exam: regular rate/rhythm, normal heart sounds, edema Gastrointestinal/Abdomen Exam: soft, normal bowel sounds Extremity Exam: calf tenderness, pedal edema, swelling, other (Right fifth digit with escar) Back Exam: normal inspection Pelvic Exam: deferred Rectal Exam: deferred OBJECTIVE DATA Vital Signs: Vital Signs - 24 hr Temp Pulse Resp BP BP Pulse Ox 09/11/23 03:51 98 09/11/23 03:50 90 20 98 09/11/23 02:25 97.1 F 96 H 18 144/67 98 09/11/23 01:37 99 09/11/23 00:05 97 H 19 149/86 99 09/10/23 23:12 140/113 09/10/23 23:09 98.1 F 117 H 22 140/113 99 Pain Assessment - Last Documented Pain Intensity 0 Intake and Output: Intake & Output 09/08/23 09/09/23 09/10/23 09/11/23 11:59 11:59 11:59 11:59 Output Total 200 Balance -200 Weight 87.5 kg Lab Results: Lab Results-Last 24 Hours 09/10/23 09/10/23 09/10/23 Range/Units 00:07 23:54 23:55 WBC 11.4 H (4.0-10.5) x10^3/uL RBC 3.93 L (4.1-5.4) x10^6/uL Hgb 12.2 (12.0-16.0) g/dL Hct 38.5 (35-47) % MCV 98.0 (78-100) fL MCH 31.0 (26-32) pg MCHC 31.7 L (32-36) g/dL RDW 15.3 H (11.5-14.0) % Plt Count 281 (150-450) x10^3/uL MPV 8.6 (7.5-11.0) fL Gran % 62.5 (36.0-66.0) % Immature Gran % (Auto) 1.6 H (0.00-0.4) % Nucleat RBC Rel Count 0.0 (0.00-0.1) % Eos # (Auto) 0.36 (0-0.5) x10^3/uL Immature Gran # (Auto) 0.18 H (0.00-0.03) x10^3u/L Absolute Lymphs (auto) 3.06 (1.0-4.6) x10^3/uL Absolute Monos (auto) 0.56 (0.0-1.3) x10^3/uL Absolute Nucleated RBC 0.00 (0.00-0.01) x10^3u/L Lymphocytes % 26.9 (24.0-44.0) % Monocytes % 4.9 (0.0-12.0) % Eosinophils % 3.2 (0.00-5.0) % Basophils % 0.9 (0.0-0.4) % Absolute Granulocytes 7.10 H (1.4-6.9) x10^3/uL Basophils # 0.10 (0-0.4) x10^3/uL Sodium (137-145) mmol/L Potassium (3.5-5.1) mmol/L Chloride (98-107) mmol/L Carbon Dioxide (22-30) mmol/L Anion Gap (5-15) MEQ/L BUN (7-17) mg/dL Creatinine (0.52-1.04) mg/dL Estimated GFR ML/MIN Glucose (74-106) mg/dL Lactic Acid 3.6 H (0.4-2.0) Calcium (8.4-10.2) mg/dL Magnesium (1.6-2.3) mg/dL Total Bilirubin (0.2-1.3) mg/dL AST (14-36) U/L ALT (0-35) U/L Alkaline Phosphatase (38-126) U/L Troponin I (0.000-0.034) ng/mL NT-Pro-B Natriuret Pep (<300) pg/mL Serum Total Protein (6.3-8.2) g/dL Albumin (3.5-5.0) g/dL Procalcitonin (0.030-0.080) ng/mL Urine Color (Yellow) Urine Appearance (Clear) Urine pH (4.6-8.0) Ur Specific [place] (1.005-1.030) Urine Protein (Negative) Urine Glucose (UA) (Negative) mg/dL Urine Ketones (Negative) Urine Blood (Negative) Urine Nitrite (Negative) Urine Bilirubin (Negative) Urine Urobilinogen (0.2) mg/dL Ur Leukocyte Esterase (Negative) Urine Microscopic RBC (0-5) /HPF Urine Microscopic WBC (0-5) /HPF Ur Epithelial Cells (None Seen) /HPF Urine Bacteria (None Seen) /HPF Urine Culture Reflexed (NO) Influenza Type A Ag NEGATIVE (NEGATIVE) Influenza Type B Ag NEGATIVE (NEGATIVE) RSV (PCR) NEGATIVE (NEGATIVE) SARS-CoV-2 (PCR) NEGATIVE (NEGATIVE) 11/02/23 11/02/23 11/02/23 Range/Units 23:55 23:55 23:55 WBC (4.0-10.5) x10^3/uL RBC (4.1-5.4) x10^6/uL Hgb (12.0-16.0) g/dL Hct (35-47) % MCV (78-100) fL MCH (26-32) pg MCHC (32-36) g/dL RDW (11.5-14.0) % Plt Count (150-450) x10^3/uL MPV (7.5-11.0) fL Gran % (36.0-66.0) % Immature Gran % (Auto) (0.00-0.4) % Nucleat RBC Rel Count (0.00-0.1) % Eos # (Auto) (0-0.5) x10^3/uL Immature Gran # (Auto) (0.00-0.03) x10^3u/L Absolute Lymphs (auto) (1.0-4.6) x10^3/uL Absolute Monos (auto) (0.0-1.3) x10^3/uL Absolute Nucleated RBC (0.00-0.01) x10^3u/L Lymphocytes % (24.0-44.0) % Monocytes % (0.0-12.0) % Eosinophils % (0.00-5.0) % Basophils % (0.0-0.4) % Absolute Granulocytes (1.4-6.9) x10^3/uL Basophils # (0-0.4) x10^3/uL Sodium 135 L (137-145) mmol/L Potassium 4.9 (3.5-5.1) mmol/L Chloride 95 L (98-107) mmol/L Carbon Dioxide 28 (22-30) mmol/L Anion Gap 16.6 H (5-15) MEQ/L BUN 22 H (7-17) mg/dL Creatinine 1.42 H (0.52-1.04) mg/dL Estimated GFR 36.5 ML/MIN Glucose 197 H (74-106) mg/dL Lactic Acid (0.4-2.0) Calcium 10.1 (8.4-10.2) mg/dL Magnesium 1.8 (1.6-2.3) mg/dL Total Bilirubin 0.40 (0.2-1.3) mg/dL AST 26 (14-36) U/L ALT 17 (0-35) U/L Alkaline Phosphatase 168 H (38-126) U/L Troponin I < 0.012 (0.000-0.034) ng/mL NT-Pro-B Natriuret Pep 412 (<300) pg/mL Serum Total Protein 7.7 (6.3-8.2) g/dL Albumin 4.2 (3.5-5.0) g/dL Procalcitonin (0.030-0.080) ng/mL Urine Color (Yellow) Urine Appearance (Clear) Urine pH (4.6-8.0) Ur Specific [place] (1.005-1.030) Urine Protein (Negative) Urine Glucose (UA) (Negative) mg/dL Urine Ketones (Negative) Urine Blood (Negative) Urine Nitrite (Negative) Urine Bilirubin (Negative) Urine Urobilinogen (0.2) mg/dL Ur Leukocyte Esterase (Negative) Urine Microscopic RBC (0-5) /HPF Urine Microscopic WBC (0-5) /HPF Ur Epithelial Cells (None Seen) /HPF Urine Bacteria (None Seen) /HPF Urine Culture Reflexed (NO) Influenza Type A Ag (NEGATIVE) Influenza Type B Ag (NEGATIVE) RSV (PCR) (NEGATIVE) SARS-CoV-2 (PCR) (NEGATIVE) 09/11/23 09/11/23 09/11/23 Range/Units 00:05 00:20 02:01 WBC (4.0-10.5) x10^3/uL RBC (4.1-5.4) x10^6/uL Hgb (12.0-16.0) g/dL Hct (35-47) % MCV (78-100) fL MCH (26-32) pg MCHC (32-36) g/dL RDW (11.5-14.0) % Plt Count (150-450) x10^3/uL MPV (7.5-11.0) fL Gran % (36.0-66.0) % Immature Gran % (Auto) (0.00-0.4) % Nucleat RBC Rel Count (0.00-0.1) % Eos # (Auto) (0-0.5) x10^3/uL Immature Gran # (Auto) (0.00-0.03) x10^3u/L Absolute Lymphs (auto) (1.0-4.6) x10^3/uL Absolute Monos (auto) (0.0-1.3) x10^3/uL Absolute Nucleated RBC (0.00-0.01) x10^3u/L Lymphocytes % (24.0-44.0) % Monocytes % (0.0-12.0) % Eosinophils % (0.00-5.0) % Basophils % (0.0-0.4) % Absolute Granulocytes (1.4-6.9) x10^3/uL Basophils # (0-0.4) x10^3/uL Sodium (137-145) mmol/L Potassium (3.5-5.1) mmol/L Chloride (98-107) mmol/L Carbon Dioxide (22-30) mmol/L Anion Gap (5-15) MEQ/L BUN (7-17) mg/dL Creatinine (0.52-1.04) mg/dL Estimated GFR ML/MIN Glucose (74-106) mg/dL Lactic Acid 1.8 (0.4-2.0) Calcium (8.4-10.2) mg/dL Magnesium (1.6-2.3) mg/dL Total Bilirubin (0.2-1.3) mg/dL AST (14-36) U/L ALT (0-35) U/L Alkaline Phosphatase (38-126) U/L Troponin I (0.000-0.034) ng/mL NT-Pro-B Natriuret Pep (<300) pg/mL Serum Total Protein (6.3-8.2) g/dL Albumin (3.5-5.0) g/dL Procalcitonin 0.083 H (0.030-0.080) ng/mL Urine Color Yellow (Yellow) Urine Appearance Turbid A (Clear) Urine pH 5.0 (4.6-8.0) Ur Specific [place] 1.015 (1.005-1.030) Urine Protein 100 A (Negative) Urine Glucose (UA) Negative (Negative) mg/dL Urine Ketones Negative (Negative) Urine Blood Small A (Negative) Urine Nitrite Positive A (Negative) Urine Bilirubin Negative (Negative) Urine Urobilinogen 0.2 (0.2) mg/dL Ur Leukocyte Esterase Large A (Negative) Urine Microscopic RBC 0-2 (0-5) /HPF Urine Microscopic WBC >100 A (0-5) /HPF Ur Epithelial Cells None Seen (None Seen) /HPF Urine Bacteria Many A (None Seen) /HPF Urine Culture Reflexed ORDERED SEPARATELY (NO) Influenza Type A Ag (NEGATIVE) Influenza Type B Ag (NEGATIVE) RSV (PCR) (NEGATIVE) SARS-CoV-2 (PCR) (NEGATIVE) 09/11/23 09/11/23 09/11/23 Range/Units 04:06 04:06 04:06 WBC 11.6 H (4.0-10.5) x10^3/uL RBC 3.51 L (4.1-5.4) x10^6/uL Hgb 11.2 L (12.0-16.0) g/dL Hct 33.9 L (35-47) % MCV 96.6 (78-100) fL MCH 31.9 (26-32) pg MCHC 33.0 (32-36) g/dL RDW 15.2 H (11.5-14.0) % Plt Count 280 (150-450) x10^3/uL MPV 9.1 (7.5-11.0) fL Gran % 67.3 H (36.0-66.0) % Immature Gran % (Auto) 1.6 H (0.00-0.4) % Nucleat RBC Rel Count 0.0 (0.00-0.1) % Eos # (Auto) 0.23 (0-0.5) x10^3/uL Immature Gran # (Auto) 0.19 H (0.00-0.03) x10^3u/L Absolute Lymphs (auto) 2.73 (1.0-4.6) x10^3/uL Absolute Monos (auto) 0.53 (0.0-1.3) x10^3/uL Absolute Nucleated RBC 0.00 (0.00-0.01) x10^3u/L Lymphocytes % 23.6 L (24.0-44.0) % Monocytes % 4.6 (0.0-12.0) % Eosinophils % 2.0 (0.00-5.0) % Basophils % 0.9 (0.0-0.4) % Absolute Granulocytes 7.79 H (1.4-6.9) x10^3/uL Basophils # 0.10 (0-0.4) x10^3/uL Sodium 135 L (137-145) mmol/L Potassium 3.9 D (3.5-5.1) mmol/L Chloride 97 L (98-107) mmol/L Carbon Dioxide 27 (22-30) mmol/L Anion Gap 14.8 (5-15) MEQ/L BUN 20 H (7-17) mg/dL Creatinine 1.34 H (0.52-1.04) mg/dL Estimated GFR 39.1 ML/MIN Glucose 151 H (74-106) mg/dL Lactic Acid (0.4-2.0) Calcium 9.5 (8.4-10.2) mg/dL Magnesium (1.6-2.3) mg/dL Total Bilirubin (0.2-1.3) mg/dL AST (14-36) U/L ALT (0-35) U/L Alkaline Phosphatase (38-126) U/L Troponin I < 0.012 (0.000-0.034) ng/mL NT-Pro-B Natriuret Pep 476 (<300) pg/mL Serum Total Protein (6.3-8.2) g/dL Albumin (3.5-5.0) g/dL Procalcitonin (0.030-0.080) ng/mL Urine Color (Yellow) Urine Appearance (Clear) Urine pH (4.6-8.0) Ur Specific [place] (1.005-1.030) Urine Protein (Negative) Urine Glucose (UA) (Negative) mg/dL Urine Ketones (Negative) Urine Blood (Negative) Urine Nitrite (Negative) Urine Bilirubin (Negative) Urine Urobilinogen (0.2) mg/dL Ur Leukocyte Esterase (Negative) Urine Microscopic RBC (0-5) /HPF Urine Microscopic WBC (0-5) /HPF Ur Epithelial Cells (None Seen) /HPF Urine Bacteria (None Seen) /HPF Urine Culture Reflexed (NO) Influenza Type A Ag (NEGATIVE) Influenza Type B Ag (NEGATIVE) RSV (PCR) (NEGATIVE) SARS-CoV-2 (PCR) (NEGATIVE) Radiology Exams: Radiology Procedures Category Date Time Status CHEST 1 VIEW (PORTABLE) Stat Exams 09/10/23 00:40 Taken Assessment/Plan (1) Acute osteomyelitis of metatarsal bone of right foot Current Visit: Yes Status: Acute Assessment & Plan: -Art duplex -Podiatry consult, appreciate recs -Vanc/zosyn for now Code(s): M86.171 - OTHER ACUTE OSTEOMYELITIS, RIGHT ANKLE AND FOOT (2) Bilateral lower leg cellulitis Current Visit: Yes Status: Acute Assessment & Plan: Has history of MRSA. IV Clindamycin. Gerald borders. Skin/wound care. Lactobacillus for probiotics. 09/11: -Abx changed to vanc/zosyn, wound cultures taken -Venous doppler -ESR/CRP -Elevate affected limb Code(s): L03.116 - CELLULITIS OF LEFT LOWER LIMB; L03.115 - CELLULITIS OF RIGHT LOWER LIMB (3) Acute exacerbation of CHF (congestive heart failure) Current Visit: Yes Status: Acute Assessment & Plan: IV Lasix. Patient's Bumex has been increased recently. Will recheck BNP and monitor volume status, edema and weight Code(s): I50.9 - HEART FAILURE, UNSPECIFIED (4) UTI (urinary tract infection) Current Visit: No Status: Acute Qualifiers: Assessment & Plan: -Patient started on vanc/zosyn for osteomyelitis/cellulitis, will follow u-cult Code(s): N39.0 - URINARY TRACT INFECTION, SITE NOT SPECIFIED (5) COPD (chronic obstructive pulmonary disease) Current Visit: No Status: Chronic Assessment & Plan: -Continue home medications, RT eval (6) Diabetes mellitus type 2 in obese Current Visit: No Status: Chronic Assessment & Plan: -ADA diet -A1c -SSI Code(s): E11.69 - TYPE 2 DIABETES MELLITUS WITH OTHER SPECIFIED COMPLICATION; E66.9 - OBESITY, UNSPECIFIED (7) Hypothyroid Current Visit: No Status: Chronic Assessment & Plan: -Continue home meds Code(s): E03.9 - HYPOTHYROIDISM, UNSPECIFIED (8) LENNIE (acute kidney injury) Current Visit: Yes Status: Acute Assessment & Plan: -near baseline of 1.1-1.3, will continue to monitor -Avoid nephrotoxic medications -Monitor renal/lytes daily -Vanc to be dosed by pharm Code(s): N17.9 - ACUTE KIDNEY FAILURE, UNSPECIFIED
[2023-09-11] MEDS ORDERED: CLINDAMYCIN-D5W 600 MG/50 ML*** 600 MG/50 ML BAG IV SCH (06:00)
[2023-09-11] MEDS ORDERED: AZACTAM 1 GM*** 1 GM in Sodium Chloride 100ML MINI-BAG PLUS 100 ML IV SCH ×3 (06:00→18:00)
[2023-09-11] MEDS ORDERED: Xopenex 1.25 MG/0.5 ML UD NEBULE IH PRN (07:54)
[2023-09-11] MEDS ORDERED: Sodium Chloride 3 ML UD NEBULES IH PRN (07:54)
[2023-09-11] MEDS: Lasix 40 MG/4 ML IV SCH ×3 (07:57→23:35)
[2023-09-11] MEDS ORDERED: MEDICATION INTERVENTION MC SCH (08:15)
--- NOTE | 2023-09-11 08:40 | XRAY ---
Indication: CHF. Comparison: July 15, 2023 Portable chest unchanged again demonstrating minimal bibasilar subsegmental atelectasis/scarring and right lung calcified granuloma. Heart not enlarged for AP portable technique. Bony thorax intact again with osteopenia, degenerative changes, and T12 kyphoplasty. Impression: Continued nonacute chest with chronic features.
[2023-09-11] MEDS: PATIENT OWN MEDICATION IH SCH (09:00)
[2023-09-11] MEDS ORDERED: NON-FORMULARY ITEM (Fluticasone/Umeclidin/Vilanter [Trelegy Ellipta 100-62.5-25] 1 EACH Bl PO SCH (10:00)
[2023-09-11] MEDS ORDERED: BREXPIPRAZOLE 0.5 MG PO SCH (10:00)
[2023-09-11] MEDS ORDERED: BUMEX 1 MG PO SCH (10:00)
[2023-09-11] MEDS: BENADRYL 25 MG CAPSULE PO SCH ×2 (10:20→16:51)
[2023-09-11] MEDS: Lopressor 50 MG PO SCH (10:20)
[2023-09-11] MEDS: ECOTRIN 81 MG PO SCH (10:20)
[2023-09-11] MEDS: Acidophilus TABLET PO SCH (10:20)
[2023-09-11] MEDS: SYNTHROID 100 MCG PO SCH (10:20)
[2023-09-11] MEDS: HEPARIN 5000 UNITS/0.5 ML (HIGH RISK MED) SQ SCH ×2 (10:21→21:05)
[2023-09-11] MEDS: Pepcid 20 MG PO SCH ×2 (10:21→21:06)
[2023-09-11] MEDS: Klor Con PO SCH ×3 (10:21→21:05)
[2023-09-11] MEDS: SYNTHROID 125 MCG PO SCH (10:21)
[2023-09-11] MEDS: NORVASC 5 MG PO SCH (10:21)
[2023-09-11] MEDS: ZYLOPRIM 300 MG PO SCH (10:21)
--- NOTE | 2023-09-11 10:50 | XRAY ---
Indication: Fifth toe ulcer. Comparison: None 2 portable views right foot demonstrates marked osteopenia, small plantar heel spur, diffuse soft tissue swelling, and extensive scattered vascular calcifications. Moth-eaten appearance 4th/5th metatarsal heads concerning for osteomyelitis. No other bony, articular, or soft tissue abnormalities.
--- NOTE | 2023-09-11 12:26 | XRAY ---
Indication: Bilateral leg edema. Two-dimensional sonogram and color Doppler imaging of the major venous vessels of the left and right leg performed. Comparison: None No thrombus seen in the examined deep venous vessels of the left and right leg including greater saphenous vein. Veins demonstrate normal compressibility. Venous waveforms are normal with and without augmentation. Impression: Left and right legs negative for DVT.
[2023-09-11] MEDS ORDERED: PHARMACY DOSING REQUIRED: VANCOMYCIN IV STA (12:47)
[2023-09-11] MEDS ORDERED: PHARMACY DOSING REQUEST MC ONE (12:48)
[2023-09-11] MEDS: Piperacillin/Tazobactam 2.25 GM 2.25 GM in Sodium Chloride 100ML MINI-BAG PLUS 100 ML IV SCH ×3 (13:09→23:35)
[2023-09-11] MEDS ORDERED: VANCOMYCIN 1.25 GM/250 ML BAG 1.25 GM/250 ML PIGGYBACK IV SCH (15:00)
--- NOTE | 2023-09-11 16:07 | XRAY ---
Indication: Right toe osteomyelitis. Lower extremity cellulitis. Two-dimensional sonogram and color Doppler imaging of the major arteries of the left and right leg performed. Comparison: None Examination of the right leg demonstrates scattered arteriosclerotic disease of the visualized common femoral, deep femoral, superficial femoral, and popliteal arteries without critical stenosis/obstruction. Above arteries demonstrates multiphasic arterial waveforms. Posterior tibial and dorsal pedal arteries appears widely patent with attenuated monophasic arterial waveform. Right arm brachial pressure is 126. Right ankle pressure is 119. Ankle brachial index is 0.9, normal. Examination of the left leg demonstrates widely patent common femoral and deep femoral arteries. Mild scattered arteriosclerotic disease throughout the superficial femoral, popliteal, and posterior tibial arteries. Widely patent appearing dorsal pedal artery. Arterial waveforms are multiphasic in the common femoral, superficial femoral, and popliteal arteries. Posterior tibial and dorsal pedal arterial waveforms are monophasic and attenuated. Left arm brachial pressure is 170. Left ankle pressure is 112. Ankle-brachial index is 0.9, normal. Impression: Minimal/mild scattered arteriosclerotic disease bilaterally. No focal critical stenosis/obstruction. Left and right ABIs are normal.
--- NOTE | 2023-09-11 16:37 | PCM.CONS ---
Podiatry HPI - Consult Date of Consultation Date: 09/11/23 Reason for Consult: concern for OM, Bilateral edema with venous insufficency ulceration/skin tear Consulting Provider: CHRISTIANO CAMACHO DPM - [facility] History of Present Illness: plesant 83 yo female with Hx CHF, Brawny edema, and recent hx of venous insufficency with recent ulceration having failed outpatient therapy with her PCP on Bumex. This recent episode has been ongoing for approximately 1-2 weeks.She is accompanied by her daughter and dyed raw stock blower feeder today who relay most subjective information due to patient hard of hearing. Currently on Lasix IV with some improvement already subjectively. Current/recurrent UTI however patient claims asymptomatic. Medications & Allergies Home Medications: Home Medication List Allopurinol 300 mg [Zyloprim 300 mg] 300 mg PO DAILY 11/30/16 [History Confirmed 09/10/23] Levothyroxine Sodium [Synthroid] 225 mcg PO DAILY 11/30/16 [History Confirmed 09/10/23] Metformin HCl 500 mg PO DAILY 04/24/18 [History Confirmed 09/10/23] Acetaminophen/Diphenhydramine [Tylenol Pm Exstr 500-25Mg Cplt] 1 tab PO HS 09/18/21 [History Confirmed 09/10/23] Diphenhydramine HCl [Benadryl Allergy] 50 mg PO BID 04/19/22 [History Confirmed 09/10/23] Potassium Chloride 10 meq PO TID 04/19/22 [History Confirmed 09/10/23] Metoprolol Tartrate 50 mg [Lopressor 50 MG] 50 mg PO DAILY 11/21/22 [His tory Confirmed 09/10/23] Fluticasone/Umeclidin/Vilanter [Trelegy Ellipta 100-62.5-25] 1 inh PO DAILY 07/15/23 [History Confirmed 09/10/23] Brexpiprazole [Rexulti] 0.5 mg PO DAILY 09/10/23 [History Confirmed 09/10/23] Bumetanide 1 mg [Bumex 1 mg] 2 mg PO TID 09/10/23 [History Confirmed 09/10/23] Hydrocodone/Acetaminophen [Hydrocodone-Acetamin 7.5-325] 1 tab PO Q6-8HPRN PRN 09/10/23 [History Confirmed 09/10/23] Amlodipine Besylate 2.5 mg PO DAILY 09/11/23 [History Confirmed 09/11/23] Aspirin EC 81 mg [Ecotrin 81 mg] 1 tab PO DAILY 09/11/23 [History Confirmed 09/11/23] levalbuterol HCl [Xopenex 1.25 MG/0.5 ML UD NEBULE] 1.25 mg IH DAILY PRN PRN 09/11/23 [History Confirmed 09/11/23] Allergies/Adverse Reactions: Allergies Allergy/AdvReac Type Severity Reaction Status Date / Time amoxicillin Allergy Verified 09/10/23 23:26 levofloxacin [From Levaquin] Allergy Verified 09/10/23 23:26 ofloxacin [From Floxin] Allergy Verified 09/10/23 23:26 Sulfa (Sulfonamide Allergy Verified 09/10/23 23:26 Antibiotics) [Sulfa(Sulfonamide Antibiotics)] - Past Medical History Past Medical History: Yes Neurological History: Peripheral Neuropathy ENT History: No Pertinent History Cardiac History: Arrhythmia, Hypertension Respiratory History: COPD Endocrine Medical History: Diabetes Type II, Hypothyroidism Musculoskelatal History: Arthritis, Degenerative Disk Disease, Osteoarthritis GI Medical History: Diverticulitis, Diverticulosis, Hemorrhoids, Hernia, Other History: Renal Disease Pyscho-Social History: No Pertinent History Reproductive Disorders: No Pertinent History Comment: PE, ARRYTHMIA, RENAL DZ, DDD, RA, OA, MYELODSYPLASTIC SYNDROME. PSH: CARDIAC CATH, HYSTERECTOMY, LUMPECTOMY, BASAL AND SQUAMOUS CELL CA. - Past Surgical History Past Surgical History: Yes Neuro Surgical History: No Pertinent History Cardiac History: Cardiac Catheterization Respiratory Surgery: No Pertinent History GI Surgical History: Other Genitourinary Surgical Hx: No Pertinent History Musculskeletal Surgical Hx: No Pertinent History Female Surgical History: Hysterectomy, Lumpectomy Other Surgical History: breast tumor removed, tumor removed from back benign, 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, cauterization due to intestinal bleed, colon ruptured was septic and has colostomy - Social History Smoking Status: Never smoker Exposure to second hand smoke: Yes Alcohol: None Drug Use: none Significant Family History: no pertinent family hx Physical Exam - General General Appearance: no apparent distress - Neuro Neurologic: Other (diminished) - Vascular Capillary Refill Time: < 3 seconds Varicosities: Positive Edema: Pitting Edema Degree: 3+ Skin: (atrophic with multiple previouos healed venous insufficency ulcer. brawny edema noted.) Skin Temperature: Warm to touch - Narrative Narrative Physical Exam: Right Leg Wound #1 - posterior lateral calf Right 0.6 x 1.9 x0.1- Granular with friable rim no serous drainage Left leg Wound #2- Anterior medial left leg 2.1 x 1.2x 0.1 - 100% granular serous drainage Wound #3- Anterior lateral left leg 2.3 x 2.0 x 0.1- Purulent drainage with minimal epithelialization at wound edges largely granular Wound #4- Skin tear posterior left leg 3.6x 2.1x-0.1- friable granular mild purulent drainage Results - Labs Lab/Micro Results: Lab Results-Last 24 Hours 09/10/23 09/10/23 09/10/23 Range/Units 00:07 23:54 23:55 WBC 11.4 H (4.0-10.5) x10^3/uL RBC 3.93 L (4.1-5.4) x10^6/uL Hgb 12.2 (12.0-16.0) g/dL Hct 38.5 (35-47) % MCV 98.0 (78-100) fL MCH 31.0 (26-32) pg MCHC 31.7 L (32-36) g/dL RDW 15.3 H (11.5-14.0) % Plt Count 281 (150-450) x10^3/uL MPV 8.6 (7.5-11.0) fL Gran % 62.5 (36.0-66.0) % Immature Gran % (Auto) 1.6 H (0.00-0.4) % Nucleat RBC Rel Count 0.0 (0.00-0.1) % Eos # (Auto) 0.36 (0-0.5) x10^3/uL Immature Gran # (Auto) 0.18 H (0.00-0.03) x10^3u/L Absolute Lymphs (auto) 3.06 (1.0-4.6) x10^3/uL Absolute Monos (auto) 0.56 (0.0-1.3) x10^3/uL Absolute Nucleated RBC 0.00 (0.00-0.01) x10^3u/L Lymphocytes % 26.9 (24.0-44.0) % Monocytes % 4.9 (0.0-12.0) % Eosinophils % 3.2 (0.00-5.0) % Basophils % 0.9 (0.0-0.4) % Absolute Granulocytes 7.10 H (1.4-6.9) x10^3/uL Basophils # 0.10 (0-0.4) x10^3/uL ESR (0-20) mm/hr Sodium (137-145) mmol/L Potassium (3.5-5.1) mmol/L Chloride (98-107) mmol/L Carbon Dioxide (22-30) mmol/L Anion Gap (5-15) MEQ/L BUN (7-17) mg/dL Creatinine (0.52-1.04) mg/dL Estimated GFR ML/MIN Glucose (74-106) mg/dL POC Glucometer (74 to 106) mg/dL Lactic Acid 3.6 H (0.4-2.0) Calcium (8.4-10.2) mg/dL Magnesium (1.6-2.3) mg/dL Total Bilirubin (0.2-1.3) mg/dL AST (14-36) U/L ALT (0-35) U/L Alkaline Phosphatase (38-126) U/L Troponin I (0.000-0.034) ng/mL NT-Pro-B Natriuret Pep (<300) pg/mL Serum Total Protein (6.3-8.2) g/dL Albumin (3.5-5.0) g/dL Procalcitonin (0.030-0.080) ng/mL Urine Color (Yellow) Urine Appearance (Clear) Urine pH (4.6-8.0) Ur Specific [place] (1.005-1.030) Urine Protein (Negative) Urine Glucose (UA) (Negative) mg/dL Urine Ketones (Negative) Urine Blood (Negative) Urine Nitrite (Negative) Urine Bilirubin (Negative) Urine Urobilinogen (0.2) mg/dL Ur Leukocyte Esterase (Negative) Urine Microscopic RBC (0-5) /HPF Urine Microscopic WBC (0-5) /HPF Ur Epithelial Cells (None Seen) /HPF Urine Bacteria (None Seen) /HPF Urine Culture Reflexed (NO) Influenza Type A Ag NEGATIVE (NEGATIVE) Influenza Type B Ag NEGATIVE (NEGATIVE) RSV (PCR) NEGATIVE (NEGATIVE) SARS-CoV-2 (PCR) NEGATIVE (NEGATIVE) 09/10/23 09/10/23 09/10/23 Range/Units 23:55 23:55 23:55 WBC (4.0-10.5) x10^3/uL RBC (4.1-5.4) x10^6/uL Hgb (12.0-16.0) g/dL Hct (35-47) % MCV (78-100) fL MCH (26-32) pg MCHC (32-36) g/dL RDW (11.5-14.0) % Plt Count (150-450) x10^3/uL MPV (7.5-11.0) fL Gran % (36.0-66.0) % Immature Gran % (Auto) (0.00-0.4) % Nucleat RBC Rel Count (0.00-0.1) % Eos # (Auto) (0-0.5) x10^3/uL Immature Gran # (Auto) (0.00-0.03) x10^3u/L Absolute Lymphs (auto) (1.0-4.6) x10^3/uL Absolute Monos (auto) (0.0-1.3) x10^3/uL Absolute Nucleated RBC (0.00-0.01) x10^3u/L Lymphocytes % (24.0-44.0) % Monocytes % (0.0-12.0) % Eosinophils % (0.00-5.0) % Basophils % (0.0-0.4) % Absolute Granulocytes (1.4-6.9) x10^3/uL Basophils # (0-0.4) x10^3/uL ESR (0-20) mm/hr Sodium 135 L (137-145) mmol/L Potassium 4.9 (3.5-5.1) mmol/L Chloride 95 L (98-107) mmol/L Carbon Dioxide 28 (22-30) mmol/L Anion Gap 16.6 H (5-15) MEQ/L BUN 22 H (7-17) mg/dL Creatinine 1.42 H (0.52-1.04) mg/dL Estimated GFR 36.5 ML/MIN Glucose 197 H (74-106) mg/dL POC Glucometer (74 to 106) mg/dL Lactic Acid (0.4-2.0) Calcium 10.1 (8.4-10.2) mg/dL Magnesium 1.8 (1.6-2.3) mg/dL Total Bilirubin 0.40 (0.2-1.3) mg/dL AST 26 (14-36) U/L ALT 17 (0-35) U/L Alkaline Phosphatase 168 H (38-126) U/L Troponin I < 0.012 (0.000-0.034) ng/mL NT-Pro-B Natriuret Pep 412 (<300) pg/mL Serum Total Protein 7.7 (6.3-8.2) g/dL Albumin 4.2 (3.5-5.0) g/dL Procalcitonin (0.030-0.080) ng/mL Urine Color (Yellow) Urine Appearance (Clear) Urine pH (4.6-8.0) Ur Specific [place] (1.005-1.030) Urine Protein (Negative) Urine Glucose (UA) (Negative) mg/dL Urine Ketones (Negative) Urine Blood (Negative) Urine Nitrite (Negative) Urine Bilirubin (Negative) Urine Urobilinogen (0.2) mg/dL Ur Leukocyte Esterase (Negative) Urine Microscopic RBC (0-5) /HPF Urine Microscopic WBC (0-5) /HPF Ur Epithelial Cells (None Seen) /HPF Urine Bacteria (None Seen) /HPF Urine Culture Reflexed (NO) Influenza Type A Ag (NEGATIVE) Influenza Type B Ag (NEGATIVE) RSV (PCR) (NEGATIVE) SARS-CoV-2 (PCR) (NEGATIVE) 09/11/23 09/11/23 09/11/23 Range/Units 00:05 00:20 02:01 WBC (4.0-10.5) x10^3/uL RBC (4.1-5.4) x10^6/uL Hgb (12.0-16.0) g/dL Hct (35-47) % MCV (78-100) fL MCH (26-32) pg MCHC (32-36) g/dL RDW (11.5-14.0) % Plt Count (150-450) x10^3/uL MPV (7.5-11.0) fL Gran % (36.0-66.0) % Immature Gran % (Auto) (0.00-0.4) % Nucleat RBC Rel Count (0.00-0.1) % Eos # (Auto) (0-0.5) x10^3/uL Immature Gran # (Auto) (0.00-0.03) x10^3u/L Absolute Lymphs (auto) (1.0-4.6) x10^3/uL Absolute Monos (auto) (0.0-1.3) x10^3/uL Absolute Nucleated RBC (0.00-0.01) x10^3u/L Lymphocytes % (24.0-44.0) % Monocytes % (0.0-12.0) % Eosinophils % (0.00-5.0) % Basophils % (0.0-0.4) % Absolute Granulocytes (1.4-6.9) x10^3/uL Basophils # (0-0.4) x10^3/uL ESR (0-20) mm/hr Sodium (137-145) mmol/L Potassium (3.5-5.1) mmol/L Chloride (98-107) mmol/L Carbon Dioxide (22-30) mmol/L Anion Gap (5-15) MEQ/L BUN (7-17) mg/dL Creatinine (0.52-1.04) mg/dL Estimated GFR ML/MIN Glucose (74-106) mg/dL POC Glucometer (74 to 106) mg/dL Lactic Acid 1.8 (0.4-2.0) Calcium (8.4-10.2) mg/dL Magnesium (1.6-2.3) mg/dL Total Bilirubin (0.2-1.3) mg/dL AST (14-36) U/L ALT (0-35) U/L Alkaline Phosphatase (38-126) U/L Troponin I (0.000-0.034) ng/mL NT-Pro-B Natriuret Pep (<300) pg/mL Serum Total Protein (6.3-8.2) g/dL Albumin (3.5-5.0) g/dL Procalcitonin 0.083 H (0.030-0.080) ng/mL Urine Color Yellow (Yellow) Urine Appearance Turbid A (Clear) Urine pH 5.0 (4.6-8.0) Ur Specific [place] 1.015 (1.005-1.030) Urine Protein 100 A (Negative) Urine Glucose (UA) Negative (Negative) mg/dL Urine Ketones Negative (Negative) Urine Blood Small A (Negative) Urine Nitrite Positive A (Negative) Urine Bilirubin Negative (Negative) Urine Urobilinogen 0.2 (0.2) mg/dL Ur Leukocyte Esterase Large A (Negative) Urine Microscopic RBC 0-2 (0-5) /HPF Urine Microscopic WBC >100 A (0-5) /HPF Ur Epithelial Cells None Seen (None Seen) /HPF Urine Bacteria Many A (None Seen) /HPF Urine Culture Reflexed ORDERED SEPARATELY (NO) Influenza Type A Ag (NEGATIVE) Influenza Type B Ag (NEGATIVE) RSV (PCR) (NEGATIVE) SARS-CoV-2 (PCR) (NEGATIVE) 09/11/23 09/11/23 09/11/23 Range/Units 04:06 04:06 04:06 WBC 11.6 H (4.0-10.5) x10^3/uL RBC 3.51 L (4.1-5.4) x10^6/uL Hgb 11.2 L (12.0-16.0) g/dL Hct 33.9 L (35-47) % MCV 96.6 (78-100) fL MCH 31.9 (26-32) pg MCHC 33.0 (32-36) g/dL RDW 15.2 H (11.5-14.0) % Plt Count 280 (150-450) x10^3/uL MPV 9.1 (7.5-11.0) fL Gran % 67.3 H (36.0-66.0) % Immature Gran % (Auto) 1.6 H (0.00-0.4) % Nucleat RBC Rel Count 0.0 (0.00-0.1) % Eos # (Auto) 0.23 (0-0.5) x10^3/uL Immature Gran # (Auto) 0.19 H (0.00-0.03) x10^3u/L Absolute Lymphs (auto) 2.73 (1.0-4.6) x10^3/uL Absolute Monos (auto) 0.53 (0.0-1.3) x10^3/uL Absolute Nucleated RBC 0.00 (0.00-0.01) x10^3u/L Lymphocytes % 23.6 L (24.0-44.0) % Monocytes % 4.6 (0.0-12.0) % Eosinophils % 2.0 (0.00-5.0) % Basophils % 0.9 (0.0-0.4) % Absolute Granulocytes 7.79 H (1.4-6.9) x10^3/uL Basophils # 0.10 (0-0.4) x10^3/uL ESR (0-20) mm/hr Sodium 135 L (137-145) mmol/L Potassium 3.9 D (3.5-5.1) mmol/L Chloride 97 L (98-107) mmol/L Carbon Dioxide 27 (22-30) mmol/L Anion Gap 14.8 (5-15) MEQ/L BUN 20 H (7-17) mg/dL Creatinine 1.34 H (0.52-1.04) mg/dL Estimated GFR 39.1 ML/MIN Glucose 151 H (74-106) mg/dL POC Glucometer (74 to 106) mg/dL Lactic Acid (0.4-2.0) Calcium 9.5 (8.4-10.2) mg/dL Magnesium (1.6-2.3) mg/dL Total Bilirubin (0.2-1.3) mg/dL AST (14-36) U/L ALT (0-35) U/L Alkaline Phosphatase (38-126) U/L Troponin I < 0.012 (0.000-0.034) ng/mL NT-Pro-B Natriuret Pep 476 (<300) pg/mL Serum Total Protein (6.3-8.2) g/dL Albumin (3.5-5.0) g/dL Procalcitonin (0.030-0.080) ng/mL Urine Color (Yellow) Urine Appearance (Clear) Urine pH (4.6-8.0) Ur Specific [place] (1.005-1.030) Urine Protein (Negative) Urine Glucose (UA) (Negative) mg/dL Urine Ketones (Negative) Urine Blood (Negative) Urine Nitrite (Negative) Urine Bilirubin (Negative) Urine Urobilinogen (0.2) mg/dL Ur Leukocyte Esterase (Negative) Urine Microscopic RBC (0-5) /HPF Urine Microscopic WBC (0-5) /HPF Ur Epithelial Cells (None Seen) /HPF Urine Bacteria (None Seen) /HPF Urine Culture Reflexed (NO) Influenza Type A Ag (NEGATIVE) Influenza Type B Ag (NEGATIVE) RSV (PCR) (NEGATIVE) SARS-CoV-2 (PCR) (NEGATIVE) 09/11/23 09/11/23 09/11/23 Range/Units 04:06 06:37 07:52 WBC (4.0-10.5) x10^3/uL RBC (4.1-5.4) x10^6/uL Hgb (12.0-16.0) g/dL Hct (35-47) % MCV (78-100) fL MCH (26-32) pg MCHC (32-36) g/dL RDW (11.5-14.0) % Plt Count (150-450) x10^3/uL MPV (7.5-11.0) fL Gran % (36.0-66.0) % Immature Gran % (Auto) (0.00-0.4) % Nucleat RBC Rel Count (0.00-0.1) % Eos # (Auto) (0-0.5) x10^3/uL Immature Gran # (Auto) (0.00-0.03) x10^3u/L Absolute Lymphs (auto) (1.0-4.6) x10^3/uL Absolute Monos (auto) (0.0-1.3) x10^3/uL Absolute Nucleated RBC (0.00-0.01) x10^3u/L Lymphocytes % (24.0-44.0) % Monocytes % (0.0-12.0) % Eosinophils % (0.00-5.0) % Basophils % (0.0-0.4) % Absolute Granulocytes (1.4-6.9) x10^3/uL Basophils # (0-0.4) x10^3/uL ESR 73 H (0-20) mm/hr Sodium (137-145) mmol/L Potassium (3.5-5.1) mmol/L Chloride (98-107) mmol/L Carbon Dioxide (22-30) mmol/L Anion Gap (5-15) MEQ/L BUN (7-17) mg/dL Creatinine (0.52-1.04) mg/dL Estimated GFR ML/MIN Glucose (74-106) mg/dL POC Glucometer 140 H (74 to 106) mg/dL Lactic Acid (0.4-2.0) Calcium (8.4-10.2) mg/dL Magnesium (1.6-2.3) mg/dL Total Bilirubin (0.2-1.3) mg/dL AST (14-36) U/L ALT (0-35) U/L Alkaline Phosphatase (38-126) U/L Troponin I < 0.012 (0.000-0.034) ng/mL NT-Pro-B Natriuret Pep (<300) pg/mL Serum Total Protein (6.3-8.2) g/dL Albumin (3.5-5.0) g/dL Procalcitonin (0.030-0.080) ng/mL Urine Color (Yellow) Urine Appearance (Clear) Urine pH (4.6-8.0) Ur Specific [place] (1.005-1.030) Urine Protein (Negative) Urine Glucose (UA) (Negative) mg/dL Urine Ketones (Negative) Urine Blood (Negative) Urine Nitrite (Negative) Urine Bilirubin (Negative) Urine Urobilinogen (0.2) mg/dL Ur Leukocyte Esterase (Negative) Urine Microscopic RBC (0-5) /HPF Urine Microscopic WBC (0-5) /HPF Ur Epithelial Cells (None Seen) /HPF Urine Bacteria (None Seen) /HPF Urine Culture Reflexed (NO) Influenza Type A Ag (NEGATIVE) Influenza Type B Ag (NEGATIVE) RSV (PCR) (NEGATIVE) SARS-CoV-2 (PCR) (NEGATIVE) 09/11/23 09/11/23 Range/Units 13:31 16:03 WBC (4.0-10.5) x10^3/uL RBC (4.1-5.4) x10^6/uL Hgb (12.0-16.0) g/dL Hct (35-47) % MCV (78-100) fL MCH (26-32) pg MCHC (32-36) g/dL RDW (11.5-14.0) % Plt Count (150-450) x10^3/uL MPV (7.5-11.0) fL Gran % (36.0-66.0) % Immature Gran % (Auto) (0.00-0.4) % Nucleat RBC Rel Count (0.00-0.1) % Eos # (Auto) (0-0.5) x10^3/uL Immature Gran # (Auto) (0.00-0.03) x10^3u/L Absolute Lymphs (auto) (1.0-4.6) x10^3/uL Absolute Monos (auto) (0.0-1.3) x10^3/uL Absolute Nucleated RBC (0.00-0.01) x10^3u/L Lymphocytes % (24.0-44.0) % Monocytes % (0.0-12.0) % Eosinophils % (0.00-5.0) % Basophils % (0.0-0.4) % Absolute Granulocytes (1.4-6.9) x10^3/uL Basophils # (0-0.4) x10^3/uL ESR (0-20) mm/hr Sodium (137-145) mmol/L Potassium (3.5-5.1) mmol/L Chloride (98-107) mmol/L Carbon Dioxide (22-30) mmol/L Anion Gap (5-15) MEQ/L BUN (7-17) mg/dL Creatinine (0.52-1.04) mg/dL Estimated GFR ML/MIN Glucose (74-106) mg/dL POC Glucometer 174 H 202 H (74 to 106) mg/dL Lactic Acid (0.4-2.0) Calcium (8.4-10.2) mg/dL Magnesium (1.6-2.3) mg/dL Total Bilirubin (0.2-1.3) mg/dL AST (14-36) U/L ALT (0-35) U/L Alkaline Phosphatase (38-126) U/L Troponin I (0.000-0.034) ng/mL NT-Pro-B Natriuret Pep (<300) pg/mL Serum Total Protein (6.3-8.2) g/dL Albumin (3.5-5.0) g/dL Procalcitonin (0.030-0.080) ng/mL Urine Color (Yellow) Urine Appearance (Clear) Urine pH (4.6-8.0) Ur Specific [place] (1.005-1.030) Urine Protein (Negative) Urine Glucose (UA) (Negative) mg/dL Urine Ketones (Negative) Urine Blood (Negative) Urine Nitrite (Negative) Urine Bilirubin (Negative) Urine Urobilinogen (0.2) mg/dL Ur Leukocyte Esterase (Negative) Urine Microscopic RBC (0-5) /HPF Urine Microscopic WBC (0-5) /HPF Ur Epithelial Cells (None Seen) /HPF Urine Bacteria (None Seen) /HPF Urine Culture Reflexed (NO) Influenza Type A Ag (NEGATIVE) Influenza Type B Ag (NEGATIVE) RSV (PCR) (NEGATIVE) SARS-CoV-2 (PCR) (NEGATIVE) Accuchecks Date 09/11/23 Date 09/11/23 Date 09/11/23 Date 09/11/23 Time 16:16 Time 13:49 Time 08:13 Time 06:53 - Radiology Impressions Radiology Exams & Impressions: Radiology Procedures Category Date Time Status ARTERIAL BILAT LOWER EXTREMITY [US] Stat Exams 09/11/23 12:32 Completed CHEST 1 VIEW (PORTABLE) Stat Exams 09/10/23 00:40 Completed ECHO W/2D AND DOPPLER [US] Urgent Exams 09/11/23 08:37 Taken FOOT (2 VIEWS) Stat Exams 09/11/23 10:02 Completed VENOUS BILATERAL EXTREMITY [US] Stat Exams 09/11/23 10:02 Completed - Other Procedures and Tests Respiratory Therapy 09/11/23 03:50 Respiratory Therapy Assessment DAILY 09/11/23 07:00 Respiratory MDI DAILY Assessment/Plan (1) Bilateral lower leg cellulitis Current Visit: Yes Status: Acute Assessment & Plan: Initial patient examination and evaluation Radiographs reviewed demonstrating fairly diminished bone stock with some evidence of cortical lysis of right 4th and 5th metatarsal heads however given quality of bone-stock and no recent history of true ulceration clinical suspicion is low for OM. In addition to this ulcer is at distal 5th digit and stable eschar at this time. No involvement of 5th toe/ no obvious breaks in cortex seen in area of clinical concern. If patient does not respond to current therapy will proceed with MRI/Bone scan- higher suspicion for venous insufficiency ulceration with UTI. Venous insufficency ulceration with some purulent drainage noted on clinical examination Venous dopplers currently demonstrating negative occlusions CFT WNL palpable PTs- Proceed with sharp debridement of leg wounds at bedsidealong with clensing of wound with sterile saline and iodine- awaiting NIVS Continue IV abx per Medicine at this time Compression therapy consisting of Unna boots to the bilateral lower extremities Will follow with you Thank you for the Consult. Code(s): L03.116 - CELLULITIS OF LEFT LOWER LIMB; L03.115 - CELLULITIS OF RIGHT LOWER LIMB (2) LENNIE (acute kidney injury) Current Visit: Yes Status: Acute Code(s): N17.9 - ACUTE KIDNEY FAILURE, UNSPECIFIED (3) Acute osteomyelitis of metatarsal bone of right foot Current Visit: Yes Status: Acute Code(s): M86.171 - OTHER ACUTE OSTEOMYELITIS, RIGHT ANKLE AND FOOT (4) COPD (chronic obstructive pulmonary disease) Current Visit: No Status: Chronic (5) Diabetes mellitus type 2 in obese Current Visit: No Status: Chronic Code(s): E11.69 - TYPE 2 DIABETES MELLITUS WITH OTHER SPECIFIED COMPLICATION; E66.9 - OBESITY, UNSPECIFIED (6) CHF (congestive heart failure) Current Visit: Yes Status: Chronic Code(s): I50.9 - HEART FAILURE, UNSPECIFIED (7) Atrial fibrillation Current Visit: No Status: Chronic Qualifiers: Atrial fibrillation type: paroxysmal Code(s): I48.91 - UNSPECIFIED ATRIAL FIBRILLATION (8) Leukocytosis Current Visit: No Status: Acute Code(s): D72.829 - ELEVATED WHITE BLOOD CELL COUNT, UNSPECIFIED (9) Peripheral edema Current Visit: No Status: Acute Code(s): R60.9 - EDEMA, UNSPECIFIED
[2023-09-11] MEDS: PATIENT OWN MEDICATION PO SCH (17:29)
[2023-09-11] MEDS: TYLENOL EXTRA STRENGTH 500 MG PO SCH (21:05)
[2023-09-11] MEDS: NYSTOP POWDER 15 GM TP SCH (21:11)
[2023-09-11] MEDS ORDERED: BENADRYL 25 MG CAPSULE PO SCH (22:00)
--- NOTE | 2023-09-12 05:10 | PCM.NOTE ---
Date and Time: 09/12/23 0509 Subjective Assessment: HPI: is a 83 year old female with a history of CHF (follows with Dr. Hummel), prior PE (off anticoagulation due to skin bleeding issues), recent UTI (in 07/2023), and prior MRSA leg skin infection (approximately 5 years ago) who now presents to the hospital with worsening bilateral leg edema for 10 days. The patient was seen by Dr. Green approximately one week ago with an increase in Bumex, but the swelling has still worsened. The patient has not reported fever, chest pain, or dyspnea. There has been a pungent odor in the urine reported and some darker yellow color. No recent fall or skin trauma reported, but the patient has had blistering of the skin on the leg with the worsening edema. Admitted for CHF exacerbation and UTI, currently being treated with IV Aztreonam /clindamycin, and IV lasix. 09/11/23: Met with patient bedside. Endorses continued BLE pain. Upon examination BLE is 3+ pitting with weeping/erythema/warmth. Multiple open wounds/skin tears. She also states she has excoriation under bilateral breast. Denies dysuria/hematuria. Does have pressure wounds/incontinence dermatitis to bilateral buttocks. Denies fever,cp, abdominal pain, BOYD, dizziness, N/V/D. 09/12: Met with patient and daughter bedside. Patient endorses overall improvement since hospitalization. Bilateral extremities with compression dressings. There was concern on her right foot xray for osteomyelitis and podiatry was consulted for evaluation. Patient did receive sharp debridement of leg wounds at bedside along with cleansing of wound with sterile saline and iodine- awaiting NIVS. Clinical suspicion is low for OM given quality of bone-stock and no recent h/o ulceration per podiatry. She is to continue IV abx now, pending cultures. If no improvement, plan for MRI/bone scan. Denies fever,cough, sob, cp, abdominal pain, BOYD, dizziness, N/V/D. 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) Cardiac: Edema Abdominal/Gastrointestinal: No Symptoms Genitourinary Symptoms: No Symptoms (F/C anchored/secured) Musculoskeletal: Joint Pain Skin: Cellulitis Neurological: No Symptoms Psychological: No Symptoms Endocrine: No Symptoms Hematologic/Lymphatic: No Symptoms Immunological/Allergic: No Symptoms Objective Exam General Appearance: no apparent distress Neurologic Exam: alert, oriented x 3, cooperative, other ([id number]) Wound Assessment: Skin/Wound Assessment Wound/Incision Assessment Start: 09/11/23 01:00 Text: Status: Active Freq: Q6H Protocol: Document 09/12/23 01:53 (Rec: 09/12/23 01:54 [id number]) Wound/Incision Assessment Right Medial Calf Wound Assessment Shift Assessment Wound Type bruise/blister Wound Stage Non Pressure Wound General Appearance Open to air Surrounding Tissue Purple Comment UNI BOOTS APPLIED PER DR. MCDANIEL- Dressing is c/d/i Wound Photo Photo Taken Yes Comment: photos in chart Eye Exam: PERRL Ears, Nose, Throat Exam: moist mucous membranes Neck Exam: normal inspection Respiratory Exam: normal breath sounds, lungs clear Cardiovascular Exam: regular rate/rhythm, normal heart sounds Gastrointestinal/Abdomen Exam: soft, normal bowel sounds, other (colostomy bag) Extremity Exam: pedal edema (BLE wrapped in compression dressings, changes per podiatry), swelling Back Exam: normal inspection OBJECTIVE DATA Vital Signs: Vital Signs - 24 hr Temp Pulse Resp BP Pulse Ox 09/12/23 04:00 97.5 F 65 20 140/59 95 09/12/23 00:00 97.5 F 66 18 114/56 94 L 09/11/23 19:53 97.7 F 64 20 114/54 95 09/11/23 19:19 61 16 96 09/11/23 16:00 97.7 F 61 18 120/58 95 09/11/23 12:00 97.3 F 61 18 126/58 96 09/11/23 09:15 80 18 91 L 09/11/23 06:53 97.5 F 88 17 134/63 95 Pain Assessment - Last Documented Pain Intensity 0 Pain Scale Used 0-10 Pain Scale Intake and Output: Intake & Output 09/09/23 09/10/23 09/11/23 09/12/23 11:59 11:59 11:59 11:59 Intake Total 480 1747 Output Total 200 2950 Balance 280 -1203 Weight 87.2 kg 87.2 kg Lab Results: Lab Results-Last 24 Hours 09/11/23 09/11/23 09/11/23 Range/Units 04:06 06:37 07:52 ESR 73 H (0-20) mm/hr POC Glucometer 140 H (74 to 106) mg/dL Troponin I < 0.012 (0.000-0.034) ng/mL 09/11/23 09/11/23 09/11/23 Range/Units 13:31 16:03 20:39 ESR (0-20) mm/hr POC Glucometer 174 H 202 H 137 H (74 to 106) mg/dL Troponin I (0.000-0.034) ng/mL Radiology Exams: Radiology Procedures Category Date Time Status ARTERIAL BILAT LOWER EXTREMITY [US] Stat Exams 09/11/23 12:32 Completed ECHO W/2D AND DOPPLER [US] Urgent Exams 09/11/23 08:37 Taken FOOT (2 VIEWS) Stat Exams 09/11/23 10:02 Completed VENOUS BILATERAL EXTREMITY [US] Stat Exams 09/11/23 10:02 Completed Multi-Disciplinary Progress Notes: Multi-Disciplinary Progress Notes 09/11/23 16:50 Physical Therapy Note by Nicci(Iris#[id number])Madison SPOKE W/ DAUGHTER AND PT. THIS PM. DR. ALVARADO APPLIED COMPRESSION DRESSINGS. DAUGHTER AND PT. REPORT PT. ONLY ABLE TO STAND FOR BATHING AND HYGIENE AND TO PIVOT TO TRANSFER TO W/C AND CAR. PT. DOES NOT AMBULATE AT HOME AND HAS W/C. DAUGHTER REPORTS SHE DOES NOT WANT AGGRESSIVE P.T. RX IT TENDS TO FLARE HER BACK PN. PT. REPORTS SHE IS TOO TIRED TO TRANSFER TO CHAIR THIS EVENING. DISCUSSED THAT SHE WILL NEED TO GET UP W/ NSG STAFF OVER THE WEEKEND TO MAINTAIN HER PLOF. PT. AND DAUGHTER VERBALIZED UNDERSTANDING. WILL DISCUSS W/ NSG STAFF WELL. COMMUNICATION BOARD UPDATED IN PT'S ROOM. MINIMAL SKILLED INTERVENTION WARRANTED IN ACUTE CARE PT. MINIMALLY MOBILE AT HOME PRIOR TO ADMISSION. SHOULD MAINTAIN MOBILITY W/ NSG CARE AND P.T. WILL MONITOR DURING STAY. Initialized on 09/11/23 16:50 - END OF NOTE 09/11/23 12:30 (created 09/11/23 12:35) Case Management Note by Ginette Hardin SPOKE WITH DR. ALVARADO, HE REPORTS THAT MOST LIKELY HE WILL SEE PATIENT THIS AFTERNOON. INFORMED OF RIGHT FOOT XRAY REPORT. N/O FOR VENOUS AND ARTERIAL DOPPLARS BLE. UPDATED CAMILA TARANGO NP. Initialized on 09/11/23 12:35 - END OF NOTE 09/11/23 10:01 Case Management Note by Gaby Ludwig NEW REFERRAL FAXED TO [facility]. THEY WILL NEED NOTIFIED AT TIME OF DC AT [phone]. THEY WILL NEED FAXED THE DC INSTRUCTIONS, DC MED LIST AND DC SUMMARY TO [phone] Initialized on 09/11/23 10:01 - END OF NOTE 09/11/23 07:59 Pharmacy Note by Bassem Leigh Azactam dose decreased to q12h per renal dosing policy for estimated crcl of 23ml/min. Initialized on 09/11/23 07:59 - END OF NOTE Assessment/Plan (1) Acute osteomyelitis of metatarsal bone of right foot Current Visit: Yes Status: Acute Assessment & Plan: -Art duplex -Podiatry consult, appreciate recs -Vanc/zosyn for now Code(s): M86.171 - OTHER ACUTE OSTEOMYELITIS, RIGHT ANKLE AND FOOT (2) Bilateral lower leg cellulitis Current Visit: Yes Status: Acute Assessment & Plan: Has history of MRSA. IV Clindamycin. Gerald borders. Skin/wound care. Lactobacillus for probiotics. 09/11: -Abx changed to vanc/zosyn, wound cultures taken -Venous doppler -ESR/CRP -Elevate affected limb 09/12: -Wound cultures pending -Podiatry consult reviewed, low clinical suspicion for OM, will re-eval today, if no improvement, consider MRI/Bone scan Code(s): L03.116 - CELLULITIS OF LEFT LOWER LIMB; L03.115 - CELLULITIS OF RIGHT LOWER LIMB (3) Acute exacerbation of CHF (congestive heart failure) Current Visit: Yes Status: Acute Assessment & Plan: IV Lasix. Patient's Bumex has been increased recently. Will recheck BNP and monitor volume status, edema and weight Code(s): I50.9 - HEART FAILURE, UNSPECIFIED (4) UTI (urinary tract infection) Current Visit: No Status: Acute Qualifiers: Assessment & Plan: -Patient started on vanc/zosyn for osteomyelitis/cellulitis, will follow u-cult Code(s): N39.0 - URINARY TRACT INFECTION, SITE NOT SPECIFIED (5) COPD (chronic obstructive pulmonary disease) Current Visit: No Status: Chronic Assessment & Plan: -Continue home medications, RT eval (6) Diabetes mellitus type 2 in obese Current Visit: No Status: Chronic Assessment & Plan: -ADA diet -A1c -SSI Code(s): E11.69 - TYPE 2 DIABETES MELLITUS WITH OTHER SPECIFIED COMPLICATION; E66.9 - OBESITY, UNSPECIFIED (7) Hypothyroid Current Visit: No Status: Chronic Assessment & Plan: -Continue home meds Code(s): E03.9 - HYPOTHYROIDISM, UNSPECIFIED (8) LENNIE (acute kidney injury) Current Visit: Yes Status: Acute Assessment & Plan: -near baseline of 1.1-1.3, will continue to monitor -Avoid nephrotoxic medications -Monitor renal/lytes daily -Vanc to be dosed by pharm Code(s): M86.171 - OTHER ACUTE OSTEOMYELITIS, RIGHT ANKLE AND FOOT (2) Bilateral lower leg cellulitis Current Visit: Yes Status: Acute Code(s): L03.116 - CELLULITIS OF LEFT LOWER LIMB; L03.115 - CELLULITIS OF RIGHT LOWER LIMB (3) Acute exacerbation of CHF (congestive heart failure) Current Visit: Yes Status: Acute Code(s): I50.9 - HEART FAILURE, UNSPECIFIED (4) UTI (urinary tract infection) Current Visit: No Status: Acute Qualifiers: Code(s): N39.0 - URINARY TRACT INFECTION, SITE NOT SPECIFIED (5) COPD (chronic obstructive pulmonary disease) Current Visit: No Status: Chronic (6) Diabetes mellitus type 2 in obese Current Visit: No Status: Chronic Code(s): E11.69 - TYPE 2 DIABETES MELLITUS WITH OTHER SPECIFIED COMPLICATION; E66.9 - OBESITY, UNSPECIFIED (7) Hypothyroid Current Visit: No Status: Chronic Code(s): E03.9 - HYPOTHYROIDISM, UNSPECIFIED (8) LENNIE (acute kidney injury) Current Visit: Yes Status: Acute Code(s): N17.9 - ACUTE KIDNEY FAILURE, UNSPECIFIED
[2023-09-12 05:50] LABS: Absolute Neutrophil Ct (ANC) 5.55 x10^3/uL (1.4-6.9); BASOPHIL % 0.8 % (0.0-0.4); Basophil (Absolute #) 0.08 x10^3/uL (0-0.4); Eosinophil % 4.2 % (0.00-5.0); Eosinophil (Absolute #) 0.41 x10^3/uL (0-0.5); Hematocrit 31.8 % (35-47); Hemoglobin 10.3 g/dL (12.0-16.0); Lymphocyte (Absolute #) 3.03 x10^3/uL (1.0-4.6); Lymphocytes % 31.2 % (24.0-44.0); Mean Cell Volume 97.2 fL (78-100); Mean Corpuscular Hemoglobin 31.5 pg (26-32); Mean Corpuscular Hgb Concent. 32.4 g/dL (32-36); Mean Platelet Volume 8.8 fL (7.5-11.0); Monocyte (Absolute #) 0.54 x10^3/uL (0.0-1.3); Monocytes % 5.6 % (0.0-12.0); Neutrophil % 57.2 % (36.0-66.0); Platelet Count 241 x10^3/uL (150-450); Red Blood Count 3.27 x10^6/uL (4.1-5.4); Red Cell Distribution Width 15.8 % (11.5-14.0); White Blood Count 9.7 x10^3/uL (4.0-10.5)
[2023-09-12] MEDS: Piperacillin/Tazobactam 2.25 GM 2.25 GM in Sodium Chloride 100ML MINI-BAG PLUS 100 ML IV SCH (06:05)
[2023-09-12 06:07] LABS: ALBUMIN 3.2 g/dL (3.5-5.0); ANION GAP 12.5 MEQ/L (5-15); BILIRUBIN,TOTAL 0.5 mg/dL (0.2-1.3); Calcium 8.9 mg/dL (8.4-10.2); Creatinine 1 1.7 mg/dL (0.52-1.04); EST GLOMERULAR FILTRATION RATE 29.4 ML/MIN; Potassium 4.1 mmol/L (3.5-5.1); Total Protein 6.4 g/dL (6.3-8.2)
[2023-09-12] MEDS: BENADRYL 25 MG CAPSULE PO SCH (08:42)
[2023-09-12] MEDS: Lasix 40 MG/4 ML IV SCH (08:42)
[2023-09-12] MEDS: SYNTHROID 100 MCG PO SCH (08:45)
[2023-09-12] MEDS: NORVASC 5 MG PO SCH (08:46)
[2023-09-12] MEDS: Acidophilus TABLET PO SCH (08:46)
[2023-09-12] MEDS: Klor Con PO SCH ×3 (08:47→20:27)
[2023-09-12] MEDS: Lopressor 50 MG PO SCH (08:47)
[2023-09-12] MEDS: ECOTRIN 81 MG PO SCH (08:47)
[2023-09-12] MEDS: Pepcid 20 MG PO SCH ×2 (08:47→20:27)
[2023-09-12] MEDS: SYNTHROID 125 MCG PO SCH (08:47)
[2023-09-12] MEDS: ZYLOPRIM 300 MG PO SCH (08:47)
[2023-09-12] MEDS: NYSTOP POWDER 15 GM TP SCH ×2 (08:48→20:28)
[2023-09-12] MEDS: HEPARIN 5000 UNITS/0.5 ML (HIGH RISK MED) SQ SCH ×2 (08:48→20:27)
--- NOTE | 2023-09-12 12:11 | XRAY ---
CLINICAL HISTORY:fluid overload/sob COMPARISON:None TECHNIQUE:X-ray chest AP view (1 view). FINDINGS: The patient is rotated. Bilateral hilar and pulmonary vascular congestion were seen. Increase in transverse cardiac diameter. Inhomogeneous opacity seen in the left lower lung zone could be secondary to consolidation/atelectasis with left-sided pleural effusion. Patchy infiltrates are seen in the right lower lung zone. A small nodule is seen in the right mid zone at the periphery measuring 5.2 mm, this likely represents granuloma. Mild blunting of right costophrenic angle likely due to pleural thickening/effusion, ultrasound correlation is advised. Unfolding of aorta seen with calcification of the thoracic aorta. Visualized bones show osteopenia and degenerative changes. IMPRESSION: 1. Inhomogeneous opacity in the left lower lung zone, could be secondary to consolidation/atelectasis with left-sided pleural effusion. Follow-up is advised. 2. Patchy infiltrates in the right lower lung zone. 3. A small nodule in the right mid zone at the periphery measuring 5.2 mm, this likely represents granuloma, would recommend clinical correlation and further evaluation if clinically indicated. 4. Mild blunting of right costophrenic angle likely due to pleural thickening/effusion, ultrasound correlation is advised. 5. Cardiomegaly with hilar and pulmonary vascular congestion. Electronically Signed by: Mauricio Christopher MD. 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
[2023-09-12] MEDS: MAXIPIME 1 GM** 1 G in Dextrose 5%/Water IV Soln. 100ML PLUS BAG 100 ML IV SCH ×2 (13:44→21:51)
[2023-09-12] MEDS ORDERED: Piperacillin/Tazobactam 2.25 GM 2.25 GM in Sodium Chloride 100ML MINI-BAG PLUS 100 ML IV SCH (14:00)
[2023-09-12] MEDS: PATIENT OWN MEDICATION PO SCH (14:13)
[2023-09-12] MEDS: Furosemide 100mg/10 ml Vial IV SCH ×2 (16:10→20:26)
--- NOTE | 2023-09-12 17:24 | XRAY ---
CLINICAL HISTORY:sob/pleural effusion/opacity on cxr COMPARISON:Compared to CR chest done earlier today at 4:14 AM TECHNIQUE:Contiguous 3.[address] images of the chest were acquired without administration of intravenous contrast. Coronal and sagittal reconstructions were obtained. FINDINGS: The scanned pulmonary parenchyma shows no definite consolidation/collapse. Right upper lobe anterior segment calcified pleural-based nodule measuring 5 mm. Cylindrical bronchiectatic changes noted in both upper and lower lobes. Right basal atelectatic bands. No free or encysted pleural effusion. Heart size is mildly enlarged yet no pericardial effusion. No pathologically enlarged mediastinal, hilar, or axillary lymph node identified. Patent tracheobronchial tree. There is no definite mass lesion in the chest wall. The rest of the scanned upper abdomen is unremarkable. Degenerative changes seen in the visualized spine, no lytic/sclerotic lesion seen in the visualized bones to suggest the bony metastasis. Decreased density of the visualized vertebral bodies with T12 and L3 hyperdense material likley related to previous vertebroplasty. T12, L2, and L3 osteoporotic compression fractures. DEXA correlation is advised. IMPRESSION: Compared to the chest radiograph done earlier today: Right upper lobe anterior segment calcified pleural based nodule measuring 5 mm likely calcified granuloma. No pulmonary mass, major collapse or consolidative changes. Right basal atelectatic bands. Mild Cardiomegaly. Rest of the findings as detailed above. Electronically Signed by: Mauricio Christopher MD. (09/12/2023 16:22:36 [employer] [employer])
[2023-09-12] MEDS: PATIENT OWN MEDICATION IH SCH (19:10)
[2023-09-12] MEDS: TYLENOL EXTRA STRENGTH 500 MG PO SCH (20:27)
[2023-09-12] MEDS: NORCO 7.5/325 MG TAB PO PRN (20:27)
[2023-09-13] MEDS ORDERED: VANCOMYCIN 1 GRAM/200 ML BAG 1 GM/200 ML PIGGYBACK IV SCH ×2 (03:00→15:00)
--- NOTE | 2023-09-13 05:19 | PCM.NOTE ---
Date and Time: 09/13/23512 Subjective Assessment: HPI: is a 83 year old female with a history of CHF (follows with Dr. Hummel), prior PE (off anticoagulation due to skin bleeding issues), recent UTI (in 07/2023), and prior MRSA leg skin infection (approximately 5 years ago) who now presents to the hospital with worsening bilateral leg edema for 10 days. The patient was seen by Dr. Green approximately one week ago with an increase in Bumex, but the swelling has still worsened. The patient has not reported fever, chest pain, or dyspnea. There has been a pungent odor in the urine reported and some darker yellow color. No recent fall or skin trauma reported, but the patient has had blistering of the skin on the leg with the worsening edema. Admitted for CHF exacerbation and UTI, currently being treated with IV Aztreonam /clindamycin, and IV lasix. 09/11/23: Met with patient bedside. Endorses continued BLE pain. Upon examination BLE is 3+ pitting with weeping/erythema/warmth. Multiple open wounds/skin tears. She also states she has excoriation under bilateral breast. Denies dysuria/hematuria. Does have pressure wounds/incontinence dermatitis to bilateral buttocks. Denies fever,cp, abdominal pain, BOYD, dizziness, N/V/D. 09/12: Met with patient and daughter bedside. Patient endorses overall improvement since hospitalization. Bilateral extremities with compression dressings. There was concern on her right foot xray for osteomyelitis and podiatry was consulted for evaluation. Patient did receive sharp debridement of leg wounds at bedside along with cleansing of wound with sterile saline and iodine- awaiting NIVS. Clinical suspicion is low for OM given quality of bone-stock and no recent h/o ulceration per podiatry. She is to continue IV abx now, pending cultures. If no improvement, plan for MRI/bone scan. Denies fever,cough, sob, cp, abdominal pain, BOYD, dizziness, N/V/D. 09/13: Met with patient and daughter at bedside. Bilateral extremities with compression dressings. Podiatry to follow up today on sharp debridement of leg wounds/ concern for osteomyelitis. Overnight sleep study showing need for oxygen overnight, will contact CM to arrange. Discussed wound culture positive x 2 for gram + organism, U-cult positive for ecoli. Will continue current treatment with vanc/cefepime. CXR was showing Inhomogeneous opacity in the left lower lung zone, could be secondary to consolidation/atelectasis with left-sided pleural effusion. Patchy infiltrates in the right lower lung zone. A small nodule in the right mid zone at the periphery measuring 5.2 mm, this likely represents granuloma, would recommend clinical correlation and further evaluation if clinically indicated. Mild blunting of right costophrenic angle likely due to pleural thickening/effusion, ultrasound correlation is advised. Cardiomegaly with hilar and pulmonary vascular congestion. CT of chest Compared to the chest radiograph done demonstrating Right upper lobe anterior segment calcified pleural based nodule measuring 5 mm likely calcified granuloma. No pulmonary mass, major collapse or consolidative changes. Right basal atelectatic bands. Mild Cardiomegaly. Patient on RA during the day. Denies fever,cough, sob, cp, abdominal pain, BOYD, dizziness, N/V/D. - Review of Systems Constitutional: No Symptoms Eyes: No Symptoms Ears, Nose, & Throat: No Symptoms Respiratory: No Symptoms Cardiac: Edema Abdominal/Gastrointestinal: No Symptoms Genitourinary Symptoms: No Symptoms, Other (fc) Musculoskeletal: No Symptoms Skin: Cellulitis, Other (BLE with multiple open wounds/ drainage, with compression wrapping per podiatry) Neurological: No Symptoms Psychological: No Symptoms Endocrine: No Symptoms Hematologic/Lymphatic: No Symptoms Immunological/Allergic: No Symptoms Objective Exam General Appearance: no apparent distress Neurologic Exam: alert, oriented x 3, cooperative Skin Exam: normal color Wound Assessment: Skin/Wound Assessment Wound/Incision Assessment Start: 09/11/23 01:00 Text: Status: Active Freq: Q6H Protocol: Document 09/13/23 01:[address] [facility] (Rec: 09/13/23 01:38 EST [id number]) Wound/Incision Assessment Left Lower Other Wound Assessment Shift Assessment Wound Type SCAB, SKIN TEAR, OPEN AREA Comment SEE PIC IN CHART, LEGS WRAPPED IN UNNA BOOTS Right Medial Calf Wound Assessment Shift Assessment Wound Type bruise/blister Wound Stage Non Pressure Wound Comment SEE PIC IN CHART, LEGS WRAPPED IN UNNA BOOTS Wound Photo Photo Taken Yes Comment: photos in chart Eye Exam: PERRL Ears, Nose, Throat Exam: moist mucous membranes Neck Exam: normal inspection Respiratory Exam: normal breath sounds, lungs clear Cardiovascular Exam: regular rate/rhythm, normal heart sounds Gastrointestinal/Abdomen Exam: soft, normal bowel sounds, other (colostomy bag) Extremity Exam: other (BLE with multiple open wounds/ drainage, with compression wrapping per podiatry) Back Exam: normal inspection Pelvic Exam: deferred Rectal Exam: deferred OBJECTIVE DATA Vital Signs: Vital Signs - 24 hr Temp Pulse Resp BP Pulse Ox 09/13/23 03:00 97.3 F 82 18 133/61 92 L 09/13/23 02:40 95 09/12/23 23:44 97.1 F 62 18 110/53 95 09/12/23 19:40 85 20 98 09/12/23 19:37 97.7 F 94 H 24 176/81 99 09/12/23 16:00 97.4 F 81 20 97 09/12/23 11:48 97.5 F 67 20 124/57 94 L 09/12/23 07:49 97.5 F 73 20 132/59 95 09/12/23 06:24 70 18 93 L Pain Assessment - Last Documented Pain Intensity 0 Pain Scale Used 0-10 Pain Scale Intake and Output: Intake & Output 09/10/23 09/11/23 09/12/23 09/13/23 11:59 11:59 11:59 10:59 Intake Total 480 1867 1018 Output Total 200 2950 2850 Balance 280 1083 -1832 Weight 87.2 kg 87.2 kg Lab Results: Lab Results-Last 24 Hours 09/11/23 09/12/23 09/12/23 Range/Units 04:06 05:23 05:23 POC Glucometer (74 to 106) mg/dL Hemoglobin A1c 6.59 H (4.5-6.0) % C-Reactive Prot, Quant 23 H (0-10) mg/L NT-Pro-B Natriuret Pep 1230 (<300) pg/mL 09/12/23 09/12/23 09/12/23 Range/Units 07:41 11:30 12:04 POC Glucometer 136 H 453 H 218 H (74 to 106) mg/dL Hemoglobin A1c (4.5-6.0) % C-Reactive Prot, Quant (0-10) mg/L NT-Pro-B Natriuret Pep (<300) pg/mL 09/12/23 09/12/23 Range/Units 16:17 21:26 POC Glucometer 162 H 179 H (74 to 106) mg/dL Hemoglobin A1c (4.5-6.0) % C-Reactive Prot, Quant (0-10) mg/L NT-Pro-B Natriuret Pep (<300) pg/mL Radiology Exams: Radiology Procedures Category Date Time Status ARTERIAL BILAT LOWER EXTREMITY [US] Stat Exams 09/11/23 12:32 Completed CHEST 1 VIEW (PORTABLE) Stat Exams 09/12/23 11:14 Completed CHEST WITHOUT CONTRAST [CT] Stat Exams 09/12/23 15:15 Completed ECHO W/2D AND DOPPLER [US] Urgent Exams 09/11/23 08:37 Taken FOOT (2 VIEWS) Stat Exams 09/11/23 10:02 Completed VENOUS BILATERAL EXTREMITY [US] Stat Exams 09/11/23 10:02 Completed Multi-Disciplinary Progress Notes: Multi-Disciplinary Progress Notes 09/12/23 07:12 Pharmacy Note by Bassem Leigh Creatinine higher at 1.7. Will decrease Zosyn to q8h and Vancomycin to q48h. Initialized on 09/12/23 07:12 - END OF NOTE Assessment/Plan (1) Acute osteomyelitis of metatarsal bone of right foot Current Visit: Yes Status: Acute Assessment & Plan: -Art duplex -Podiatry consult, appreciate recs -Vanc/zosyn for now 09/12: -Wound cultures pending -Podiatry consult reviewed, low clinical suspicion for OM, will re-eval today, if no improvement, consider MRI/Bone scan 09/13: -art duplex negative for occlusion -abx changed to vanc/cefepime -Per pt podiatry to follow up today Code(s): M86.171 - OTHER ACUTE OSTEOMYELITIS, RIGHT ANKLE AND FOOT (2) Bilateral lower leg cellulitis Current Visit: Yes Status: Acute Assessment & Plan: Has history of MRSA. IV Clindamycin. Gerald borders. Skin/wound care. Lactobacillus for probiotics. 09/11: -Abx changed to vanc/zosyn, wound cultures taken -Venous doppler -ESR/CRP -Elevate affected limb 09/12: -Wound cultures pending -Podiatry consult reviewed, low clinical suspicion for OM, will re-eval today, if no improvement, consider MRI/Bone scan 09/13: --Wound cultures x 2 of BLE drainage showing gram + organism - will continue vanc/cefepime for now, follow culture -Blood cultures NGTD Code(s): L03.116 - CELLULITIS OF LEFT LOWER LIMB; L03.115 - CELLULITIS OF RIGHT LOWER LIMB (3) Acute exacerbation of CHF (congestive heart failure) Current Visit: Yes Status: Acute Assessment & Plan: IV Lasix. Patient's Bumex has been increased recently. Will recheck BNP and monitor volume status, edema and weight 09/13: -CT chest showing I MPRESSION: Compared to the chest radiograph done earlier today: Right upper lobe anterior segment calcified pleural based nodule measuring 5 mm likely calcified granuloma. No pulmonary mass, major collapse or consolidative changes. Right basal atelectatic bands. Mild Cardiomegaly. Rest of the findings as detailed above. -lasix decreased to TID Code(s): I50.9 - HEART FAILURE, UNSPECIFIED (4) UTI (urinary tract infection) Current Visit: No Status: Acute Qualifiers: Assessment & Plan: -Patient started on vanc/zosyn for osteomyelitis/cellulitis, will follow u-cult 09/13: -Ucult showing gram - organism, patient currently on vanc/cefepime Code(s): N39.0 - URINARY TRACT INFECTION, SITE NOT SPECIFIED (5) COPD (chronic obstructive pulmonary disease) Current Visit: No Status: Chronic Assessment & Plan: -Continue home medications, RT eval -overnight pulse ox showing need for oxygen at [facility], CM to set up (6) Diabetes mellitus type 2 in obese Current Visit: No Status: Chronic Assessment & Plan: -ADA diet -A1c -SSI 09/13: -A1c 6.59 Code(s): E11.69 - TYPE 2 DIABETES MELLITUS WITH OTHER SPECIFIED COMPLICATION; E66.9 - OBESITY, UNSPECIFIED (7) Hypothyroid Current Visit: No Status: Chronic Assessment & Plan: -Continue home meds Code(s): E03.9 - HYPOTHYROIDISM, UNSPECIFIED (8) LENNIE (acute kidney injury) Current Visit: Yes Status: Acute Assessment & Plan: -near baseline of 1.1-1.3, will continue to monitor -Avoid nephrotoxic medications -Monitor renal/lytes daily -Vanc to be dosed by pharm 09/13: -improving, will continue current management as above Code(s): M86.171 - OTHER ACUTE OSTEOMYELITIS, RIGHT ANKLE AND FOOT Code(s): M86.171 - OTHER ACUTE OSTEOMYELITIS, RIGHT ANKLE AND FOOT (2) Bilateral lower leg cellulitis Current Visit: Yes Status: Acute Code(s): L03.116 - CELLULITIS OF LEFT LOWER LIMB; L03.115 - CELLULITIS OF RIGHT LOWER LIMB (3) Acute exacerbation of CHF (congestive heart failure) Current Visit: Yes Status: Acute Code(s): I50.9 - HEART FAILURE, UNSPECIFIED (4) UTI (urinary tract infection) Current Visit: No Status: Acute Qualifiers: Code(s): N39.0 - URINARY TRACT INFECTION, SITE NOT SPECIFIED (5) COPD (chronic obstructive pulmonary disease) Current Visit: No Status: Chronic (6) Diabetes mellitus type 2 in obese Current Visit: No Status: Chronic Code(s): E11.69 - TYPE 2 DIABETES MELLITUS WITH OTHER SPECIFIED COMPLICATION; E66.9 - OBESITY, UNSPECIFIED (7) Hypothyroid Current Visit: No Status: Chronic Code(s): E03.9 - HYPOTHYROIDISM, UNSPECIFIED (8) LENNIE (acute kidney injury) Current Visit: Yes Status: Acute Code(s): N17.9 - ACUTE KIDNEY FAILURE, UNSPECIFIED
[2023-09-13] MEDS: Furosemide 100mg/10 ml Vial IV SCH (05:48)
[2023-09-13 06:02] LABS: Absolute Neutrophil Ct (ANC) 5.22 x10^3/uL (1.4-6.9); Basophil (Absolute #) 0.09 x10^3/uL (0-0.4); Eosinophil % 4.1 % (0.00-5.0); Eosinophil (Absolute #) 0.38 x10^3/uL (0-0.5); Hematocrit 33.7 % (35-47); Hemoglobin 10.8 g/dL (12.0-16.0); IMMATURE GRAN # 0.09 x10^3u/L (0.00-0.03); Lymphocyte (Absolute #) 2.99 x10^3/uL (1.0-4.6); Mean Cell Volume 96.8 fL (78-100); Mean Platelet Volume 8.3 fL (7.5-11.0); Monocyte (Absolute #) 0.58 x10^3/uL (0.0-1.3); Monocytes % 6.2 % (0.0-12.0); Neutrophil % 55.7 % (36.0-66.0); Platelet Count 220 x10^3/uL (150-450); Red Blood Count 3.48 x10^6/uL (4.1-5.4); Red Cell Distribution Width 15.4 % (11.5-14.0); White Blood Count 9.4 x10^3/uL (4.0-10.5)
[2023-09-13 06:40] LABS: ALBUMIN 3.5 g/dL (3.5-5.0); ANION GAP 11.6 MEQ/L (5-15); BILIRUBIN,TOTAL 0.6 mg/dL (0.2-1.3); Calcium 9.3 mg/dL (8.4-10.2); Creatinine 1 1.51 mg/dL (0.52-1.04); EST GLOMERULAR FILTRATION RATE 33.9 ML/MIN; Potassium 3.9 mmol/L (3.5-5.1); Total Protein 6.8 g/dL (6.3-8.2)
[2023-09-13] MEDS: PATIENT OWN MEDICATION IH SCH (07:28)
[2023-09-13] MEDS: ZYLOPRIM 300 MG PO SCH (08:02)
[2023-09-13] MEDS: ECOTRIN 81 MG PO SCH (08:02)
[2023-09-13] MEDS: Acidophilus TABLET PO SCH (08:02)
[2023-09-13] MEDS: SYNTHROID 125 MCG PO SCH (08:02)
[2023-09-13] MEDS: Klor Con PO SCH ×3 (08:02→21:13)
[2023-09-13] MEDS: SYNTHROID 100 MCG PO SCH (08:03)
[2023-09-13] MEDS: HEPARIN 5000 UNITS/0.5 ML (HIGH RISK MED) SQ SCH ×2 (08:03→21:12)
[2023-09-13] MEDS: Lopressor 50 MG PO SCH (08:03)
[2023-09-13] MEDS: Pepcid 20 MG PO SCH ×2 (08:03→21:12)
[2023-09-13] MEDS: NORVASC 5 MG PO SCH (08:03)
[2023-09-13] MEDS: NYSTOP POWDER 15 GM TP SCH ×2 (08:03→23:49)
[2023-09-13] MEDS: NORCO 7.5/325 MG TAB PO PRN (10:43)
[2023-09-13] MEDS: MAXIPIME 1 GM** 1 G in Dextrose 5%/Water IV Soln. 100ML PLUS BAG 100 ML IV SCH ×2 (10:43→23:51)
[2023-09-13] MEDS: Lasix 40 MG/4 ML IV SCH ×3 (10:43→21:13)
--- NOTE | 2023-09-13 13:17 | PCM.NOTE ---
Date and Time: 09/13/23 1315 Subjective Assessment: Patient at chairside eating lunch. No complaints. Daughter present. Admits to legs feeling better .No constitutional complaints. Physical Exam - Vascular Peripheral Pulses: Posterior tibialis: 2+, Dorsalis-Pedis: 2+ Capillary Refill Time: < 3 seconds Hair Growth: Symmetrical and Bilateral Edema: Pitting Edema Degree: 1+ Skin: Supple, not atrophic Skin Temperature: Warm to touch - Narrative Narrative Physical Exam: Right Leg Wound #1 - posterior lateral calf Right 0.4 x 1.4 x0.1- Granular with friable rim no serous drainage Left leg Wound #2- Anterior medial left leg 1.5 x 1.3x 0.1 - 100% granular serous drainage Wound #3- Anterior lateral left leg Resolved healthy granulation tissue throughout Wound #4- Skin tear posterior left leg 6.4x 1.6x-0.1- friable granular mild purulent drainage OBJECTIVE DATA Vital Signs: Vital Signs - 24 hr Temp Pulse Resp BP Pulse Ox 09/13/23 11:00 97.5 F 63 20 139/56 95 09/13/23 07:28 78 16 93 L 09/13/23 07:00 97.1 F 77 20 128/66 93 L 09/13/23 03:00 97.3 F 82 18 133/61 92 L 09/13/23 02:40 95 09/12/23 23:44 97.1 F 62 18 110/53 95 09/12/23 19:40 85 20 98 09/12/23 19:37 97.7 F 94 H 24 176/81 99 09/12/23 16:00 97.4 F 81 20 97 Pain Assessment - Last Documented Pain Intensity 6 Pain Scale Used 0-10 Pain Scale Intake and Output: Intake & Output 09/11/23 09/12/23 09/13/23 09/14/23 12:59 12:59 11:59 11:59 Intake Total Output Total Balance Weight Lab Results: Lab Results-Last 24 Hours 09/12/23 09/12/23 09/13/23 Range/Units 16:17 21:26 05:50 WBC 9.4 (4.0-10.5) x10^3/uL RBC 3.48 L (4.1-5.4) x10^6/uL Hgb 10.8 L (12.0-16.0) g/dL Hct 33.7 L (35-47) % MCV 96.8 (78-100) fL MCH 31.0 (26-32) pg MCHC 32.0 (32-36) g/dL RDW 15.4 H (11.5-14.0) % Plt Count 220 (150-450) x10^3/uL MPV 8.3 (7.5-11.0) fL Gran % 55.7 (36.0-66.0) % Immature Gran % (Auto) 1.0 H (0.00-0.4) % Nucleat RBC Rel Count 0.0 (0.00-0.1) % Eos # (Auto) 0.38 (0-0.5) x10^3/uL Immature Gran # (Auto) 0.09 H (0.00-0.03) x10^3u/L Absolute Lymphs (auto) 2.99 (1.0-4.6) x10^3/uL Absolute Monos (auto) 0.58 (0.0-1.3) x10^3/uL Absolute Nucleated RBC 0.00 (0.00-0.01) x10^3u/L Lymphocytes % 32.0 (24.0-44.0) % Monocytes % 6.2 (0.0-12.0) % Eosinophils % 4.1 (0.00-5.0) % Basophils % 1.0 (0.0-0.4) % Absolute Granulocytes 5.22 (1.4-6.9) x10^3/uL Basophils # 0.09 (0-0.4) x10^3/uL Sodium (137-145) mmol/L Potassium (3.5-5.1) mmol/L Chloride (98-107) mmol/L Carbon Dioxide (22-30) mmol/L Anion Gap (5-15) MEQ/L BUN (7-17) mg/dL Creatinine (0.52-1.04) mg/dL Estimated GFR ML/MIN Glucose (74-106) mg/dL POC Glucometer 162 H 179 H (74 to 106) mg/dL Calcium (8.4-10.2) mg/dL Total Bilirubin (0.2-1.3) mg/dL AST (14-36) U/L ALT (0-35) U/L Alkaline Phosphatase (38-126) U/L Serum Total Protein (6.3-8.2) g/dL Albumin (3.5-5.0) g/dL 09/13/23 09/13/23 09/13/23 Range/Units 05:50 07:21 12:01 WBC (4.0-10.5) x10^3/uL RBC (4.1-5.4) x10^6/uL Hgb (12.0-16.0) g/dL Hct (35-47) % MCV (78-100) fL MCH (26-32) pg MCHC (32-36) g/dL RDW (11.5-14.0) % Plt Count (150-450) x10^3/uL MPV (7.5-11.0) fL Gran % (36.0-66.0) % Immature Gran % (Auto) (0.00-0.4) % Nucleat RBC Rel Count (0.00-0.1) % Eos # (Auto) (0-0.5) x10^3/uL Immature Gran # (Auto) (0.00-0.03) x10^3u/L Absolute Lymphs (auto) (1.0-4.6) x10^3/uL Absolute Monos (auto) (0.0-1.3) x10^3/uL Absolute Nucleated RBC (0.00-0.01) x10^3u/L Lymphocytes % (24.0-44.0) % Monocytes % (0.0-12.0) % Eosinophils % (0.00-5.0) % Basophils % (0.0-0.4) % Absolute Granulocytes (1.4-6.9) x10^3/uL Basophils # (0-0.4) x10^3/uL Sodium 136 L (137-145) mmol/L Potassium 3.9 (3.5-5.1) mmol/L Chloride 98 (98-107) mmol/L Carbon Dioxide 31 H (22-30) mmol/L Anion Gap 11.6 (5-15) MEQ/L BUN 20 H (7-17) mg/dL Creatinine 1.51 H (0.52-1.04) mg/dL Estimated GFR 33.9 ML/MIN Glucose 131 H (74-106) mg/dL POC Glucometer 142 H 179 H (74 to 106) mg/dL Calcium 9.3 (8.4-10.2) mg/dL Total Bilirubin 0.60 (0.2-1.3) mg/dL AST 24 (14-36) U/L ALT 15 (0-35) U/L Alkaline Phosphatase 108 (38-126) U/L Serum Total Protein 6.8 (6.3-8.2) g/dL Albumin 3.5 (3.5-5.0) g/dL Radiology Exams: Radiology Procedures Category Date Time Status CHEST 1 VIEW (PORTABLE) Stat Exams 09/12/23 11:14 Completed CHEST WITHOUT CONTRAST [CT] Stat Exams 09/12/23 15:15 Completed Assessment/Plan (1) Bilateral lower leg cellulitis Current Visit: Yes Status: Acute Assessment & Plan: Patient examination and evaluation Radiographs reviewed demonstrating fairly diminished bone stock with some evidence of cortical lysis of right 4th and 5th metatarsal heads however given quality of bone-stock and no recent history of true ulceration clinical suspicion is low for OM. In addition to this ulcer is at distal 5th digit and stable eschar at this time. No signficnat involvement of 5th toe/ no obvious b reaks in cortex seen in area of clinical concern. If patient does not respond to current therapy will proceed with MRI/Bone scan- higher suspicion for cellulitis with venous insufficiency ulcers growing Gram + culture Venous insufficiency ulceration with some improvement noted on clinical examination- new measurements taken - repeat debridement preformed to left anterior medial and posterior-lateral wounds for fibrotic and necrotic tissue Venous dopplers currently demonstrating negative occlusions CFT WNL palpable DP and PTs - Proceed with sharp debridement of leg wounds at bedsidealong with clensing of wound with sterile saline and iodine- NIVS demonstrating widely patent vessel to the DP and PT bilaterally where they become monophasic- wounds to legs have adeqaute blood flow. No CTA recommended at this time unless difficulty healing ulceration Continue IV abx per Medicine at this time- currently Vancomycin/Zosyn. Plan for d/c oral however awaiting C&S- following with you. Compression therapy consisting of Unna boots to the bilateral lower extremities reapplied Patients daughter requests nail care- this will be preformed tomorrow. Patient with [facility] for wounds ( Fifi Castano) Follow up on d/c outpatient Will follow with you. Code(s): L03.116 - CELLULITIS OF LEFT LOWER LIMB; L03.115 - CELLULITIS OF RIGHT LOWER LIMB (2) LENNIE (acute kidney injury) Current Visit: Yes Status: Acute Code(s): N17.9 - ACUTE KIDNEY FAILURE, UNSPECIFIED (3) Acute osteomyelitis of metatarsal bone of right foot Current Visit: Yes Status: Acute Code(s): M86.171 - OTHER ACUTE OSTEOMYEL ITIS, RIGHT ANKLE AND FOOT (4) COPD (chronic obstructive pulmonary disease) Current Visit: No Status: Chronic (5) Diabetes mellitus type 2 in obese Current Visit: No Status: Chronic Code(s): E11.69 - TYPE 2 DIABETES MELLITUS WITH OTHER SPECIFIED COMPLICATION; E66.9 - OBESITY, UNSPECIFIED (6) CHF (congestive heart failure) Current Visit: Yes Status: Chronic Code(s): I50.9 - HEART FAILURE, UNSPECIFIED (7) Atrial fibrillation Current Visit: No Status: Chronic Qualifiers: Atrial fibrillation type: paroxysmal Qualified Code(s): I48.0 - Paroxysmal atrial fibrillation Code(s): I48.91 - UNSPECIFIED ATRIAL FIBRILLATION (8) Leukocytosis Current Visit: No Status: Acute Code(s): D72.829 - ELEVATED WHITE BLOOD CELL COUNT, UNSPECIFIED (9) Peripheral edema Current Visit: No Status: Acute Code(s): R60.9 - EDEMA, UNSPECIFIED
[2023-09-13] MEDS: PATIENT OWN MEDICATION PO SCH (15:38)
[2023-09-13] MEDS ORDERED: BENADRYL 25 MG CAPSULE PO PRN (21:34)
[2023-09-13] MEDS: TYLENOL EXTRA STRENGTH 500 MG PO SCH (21:39)
[2023-09-14 04:47] LABS: Absolute Neutrophil Ct (ANC) 4.97 x10^3/uL (1.4-6.9); BASOPHIL % 1.1 % (0.0-0.4); Eosinophil % 4.3 % (0.00-5.0); Hematocrit 34.3 % (35-47); Hemoglobin 11.2 g/dL (12.0-16.0); IMMATURE GRAN % 1.1 % (0.00-0.4); Lymphocyte (Absolute #) 3.21 x10^3/uL (1.0-4.6); Lymphocytes % 34.3 % (24.0-44.0); Mean Cell Volume 98.3 fL (78-100); Mean Corpuscular Hemoglobin 32.1 pg (26-32); Mean Corpuscular Hgb Concent. 32.7 g/dL (32-36); Mean Platelet Volume 9.3 fL (7.5-11.0); Monocyte (Absolute #) 0.58 x10^3/uL (0.0-1.3); Monocytes % 6.2 % (0.0-12.0); Platelet Count 240 x10^3/uL (150-450); Red Blood Count 3.49 x10^6/uL (4.1-5.4); Red Cell Distribution Width 15.6 % (11.5-14.0); White Blood Count 9.4 x10^3/uL (4.0-10.5)
[2023-09-14 05:03] LABS: ALBUMIN 3.4 g/dL (3.5-5.0); BILIRUBIN,TOTAL 0.4 mg/dL (0.2-1.3); Calcium 9.6 mg/dL (8.4-10.2); Creatinine 1 1.65 mg/dL (0.52-1.04); EST GLOMERULAR FILTRATION RATE 30.5 ML/MIN; Potassium 3.9 mmol/L (3.5-5.1); Total Protein 6.6 g/dL (6.3-8.2)
[2023-09-14] MEDS: PATIENT OWN MEDICATION IH SCH (06:49)
[2023-09-14 07:09] VITALS: RESP 16
[2023-09-14] MEDS ORDERED: LEVALBUTEROL IH PRN (09:08)
[2023-09-14] MEDS ORDERED: Xopenex 1.25 MG/0.5 ML UD NEBULE IH PRN (09:27)
[2023-09-14] MEDS ORDERED: BUMEX 1 MG PO SCH ×2 (10:00→17:00)
[2023-09-14] MEDS: Acidophilus TABLET PO SCH (10:03)
[2023-09-14] MEDS: ZYLOPRIM 300 MG PO SCH (10:03)
[2023-09-14] MEDS: Klor Con PO SCH (10:04)
[2023-09-14] MEDS: SYNTHROID 100 MCG PO SCH (10:04)
[2023-09-14] MEDS: SYNTHROID 125 MCG PO SCH (10:04)
[2023-09-14] MEDS: Pepcid 20 MG PO SCH (10:04)
[2023-09-14] MEDS: Lopressor 50 MG PO SCH (10:05)
[2023-09-14] MEDS: NORVASC 5 MG PO SCH (10:05)
[2023-09-14] MEDS: ECOTRIN 81 MG PO SCH (10:05)
[2023-09-14] MEDS: HEPARIN 5000 UNITS/0.5 ML (HIGH RISK MED) SQ SCH (10:06)
[2023-09-14] MEDS: MAXIPIME 1 GM** 1 G in Dextrose 5%/Water IV Soln. 100ML PLUS BAG 100 ML IV SCH (10:07)
--- NOTE | 2023-09-14 10:32 | PCM.NOTE ---
Date and Time: 09/14/23 1023 Subjective Assessment: HPI: is a 83 year old female with a history of CHF (follows with Dr. Hummel), prior PE (off anticoagulation due to skin bleeding issues), recent UTI (in 07/2023), and prior MRSA leg skin infection (approximately 5 years ago) presented to the hospital with worsening bilateral leg edema for 10 days. The patient was seen by Dr. Green approximately one week ago with an increase in Bumex, but the swelling worsened. The patient has not reported fever, chest pain, or dyspnea on admission. No recent fall or skin trauma reported, but the patient has had blistering of the skin on the leg with the worsening edema. Met with patient and daughter at bedside. Bilateral extremities with compression dressings. Pt reports edema has almost resolved with compression dressings. Podiatry saw pt yesterday for sharp debridement of leg wounds. There was a concern for osteomyelitis per XR results, podiatry to follow up with MRI if needed. They do not feel this is needed at this time. Podiatry to come and cut toenails today. Rojo d/c'd and lasix D/C'd. Changed back to Bumex BID PO. Pt has had witnessed apneas and daughter does not want pt to go home with oxygen at night. She would prefer pt f/u with Dr. Chaidez for an OP sleep study to rule out sleep apnea. Explained until that time she could have oxygen and she again is refusing. Pt unsure if she can tolerate a CPAP machine. 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 Daughter feels she does not need oxygen at night as pt did not wear O2 last night. Will order overnight pulse ox for further evaluation. Case management discussed home health care needs and this was refused by daughter. Pt states she is having a wonderful day today and feels much better than when she came. in. - Review of Systems Constitutional: No Fever, No Chills Eyes: No Symptoms Ears, Nose, & Throat: No Symptoms Respiratory: No Cough, No Short Of Breath Cardiac: No Chest Pain, No Edema, No Syncope Abdominal/Gastrointestinal: No Abdominal Pain, No Nausea, No Vomiting, No Diarrhea Genitourinary Symptoms: No Dysuria Musculoskeletal: No Back Pain, No Neck Pain Skin: Other (BLLE wrapped), No Rash Neurological: No Dizziness, No Focal Weakness, No Sensory Changes Psychological: No Symptoms, Emotional Lability Endocrine: No Symptoms Hematologic/Lymphatic: No Symptoms Immunological/Allergic: No Symptoms Objective Exam General Appearance: no apparent distress, alert, obese Neurologic Exam: alert, oriented x 3, cooperative, normal mood/affect, nml cerebellar function, sensation nml, No motor deficits Skin Exam: normal color, warm, dry, other (BLLE wrapped, dried blood from right 5th digit.) Wound Assessment: Skin/Wound Assessment Wound/Incision Assessment Start: 09/11/23 01:00 Text: Status: Active Freq: Q6H Protocol: Document 09/14/23 07:00 BRIAN (Rec: 09/14/23 08:19 BRIAN [id number]) Wound/Incision Assessment Left Lower Other Wound Assessment Shift Assessment Wound Type SCAB, SKIN TEAR, OPEN AREA Drainage Odor None/Absent Primary Dressing UNNA BOOT TO BLE Comment SEE PIC IN CHART, BLE WRAPPED IN UNNA BOOTS unchanged from last assessment .cont to be true Right Medial Calf Wound Assessment Shift Assessment Wound Type bruise/blister Wound Stage Non Pressure Wound Drainage Amount Minimal Drainage Description small about of dried blood noted on fluff roll to right lateral 5th toe Drainage Odor None/Absent Primary Dressing UNNA BOOT to BLE Comment SEE PIC IN CHART, BLE WRAPPED IN UNNA BOOTS unchanged since last assessment. cont to be true Wound Photo Photo Taken No Comment: pic from admission placed in chart. now BLE wrapped in segundo boots Eye Exam: PERRL, EOMI, eyes nml inspection Ears, Nose, Throat Exam: normal ENT inspection, pharynx normal, moist mucous membranes Neck Exam: normal inspection, non-tender, supple, full range of motion Respiratory Exam: normal breath sounds, lungs clear, No respiratory distress Cardiovascular Exam: regular rate/rhythm, normal heart sounds Gastrointestinal/Abdomen Exam: soft, No tenderness, No mass Extremity Exam: normal inspection, normal range of motion Back Exam: normal inspection, normal range of motion, No CVA tenderness, No vertebral tenderness Pelvic Exam: deferred Rectal Exam: deferred OBJECTIVE DATA Vital Signs: Vital Signs - 24 hr Temp Pulse Resp BP Pulse Ox 09/14/23 07:08 97.6 F 74 16 137/57 96 09/14/23 06:50 91 H 18 91 L 09/14/23 04:14 97.5 F 81 20 143/65 95 09/14/23 03:00 73 16 93 L 09/13/23 23:00 82 16 128/70 09/13/23 21:24 99 09/13/23 19:47 98.5 F 82 20 131/61 98 09/13/23 19:41 76 20 93 L 09/13/23 15:00 97.1 F 74 20 126/58 99 09/13/23 11:00 97.5 F 63 20 139/56 95 Pain Assessment - Last Documented Pain Intensity 0 Pain Scale Used 0-10 Pain Scale Intake and Output: Intake & Output 09/11/23 09/12/23 09/13/23 09/14/23 12:59 12:59 11:59 11:59 Intake Total 1150 Output Total 2550 Balance -1400 Weight 85.9 kg Lab Results: Lab Results-Last 24 Hours 09/13/23 09/13/23 09/13/23 Range/Units 12:01 15:45 22:31 WBC (4.0-10.5) x10^3/uL RBC (4.1-5.4) x10^6/uL Hgb (12.0-16.0) g/dL Hct (35-47) % MCV (78-100) fL MCH (26-32) pg MCHC (32-36) g/dL RDW (11.5-14.0) % Plt Count (150-450) x10^3/uL MPV (7.5-11.0) fL Gran % (36.0-66.0) % Immature Gran % (Auto) (0.00-0.4) % Nucleat RBC Rel Count (0.00-0.1) % Eos # (Auto) (0-0.5) x10^3/uL Immature Gran # (Auto) (0.00-0.03) x10^3u/L Absolute Lymphs (auto) (1.0-4.6) x10^3/uL Absolute Monos (auto) (0.0-1.3) x10^3/uL Absolute Nucleated RBC (0.00-0.01) x10^3u/L Lymphocytes % (24.0-44.0) % Monocytes % (0.0-12.0) % Eosinophils % (0.00-5.0) % Basophils % (0.0-0.4) % Absolute Granulocytes (1.4-6.9) x10^3/uL Basophils # (0-0.4) x10^3/uL Sodium (137-145) mmol/L Potassium (3.5-5.1) mmol/L Chloride (98-107) mmol/L Carbon Dioxide (22-30) mmol/L Anion Gap (5-15) MEQ/L BUN (7-17) mg/dL Creatinine (0.52-1.04) mg/dL Estimated GFR ML/MIN Glucose (74-106) mg/dL POC Glucometer 179 H 161 H 150 H (74 to 106) mg/dL Calcium (8.4-10.2) mg/dL Total Bilirubin (0.2-1.3) mg/dL AST (14-36) U/L ALT (0-35) U/L Alkaline Phosphatase (38-126) U/L Serum Total Protein (6.3-8.2) g/dL Albumin (3.5-5.0) g/dL 09/14/23 09/14/23 09/14/23 Range/Units 04:15 04:15 07:20 WBC 9.4 (4.0-10.5) x10^3/uL RBC 3.49 L (4.1-5.4) x10^6/uL Hgb 11.2 L (12.0-16.0) g/dL Hct 34.3 L (35-47) % MCV 98.3 (78-100) fL MCH 32.1 H (26-32) pg MCHC 32.7 (32-36) g/dL RDW 15.6 H (11.5-14.0) % Plt Count 240 (150-450) x10^3/uL MPV 9.3 (7.5-11.0) fL Gran % 53.0 (36.0-66.0) % Immature Gran % (Auto) 1.1 H (0.00-0.4) % Nucleat RBC Rel Count 0.0 (0.00-0.1) % Eos # (Auto) 0.40 (0-0.5) x10^3/uL Immature Gran # (Auto) 0.10 H (0.00-0.03) x10^3u/L Absolute Lymphs (auto) 3.21 (1.0-4.6) x10^3/uL Absolute Monos (auto) 0.58 (0.0-1.3) x10^3/uL Absolute Nucleated RBC 0.00 (0.00-0.01) x10^3u/L Lymphocytes % 34.3 (24.0-44.0) % Monocytes % 6.2 (0.0-12.0) % Eosinophils % 4.3 (0.00-5.0) % Basophils % 1.1 (0.0-0.4) % Absolute Granulocytes 4.97 (1.4-6.9) x10^3/uL Basophils # 0.10 (0-0.4) x10^3/uL Sodium 134 L (137-145) mmol/L Potassium 3.9 (3.5-5.1) mmol/L Chloride 94 L (98-107) mmol/L Carbon Dioxide 31 H (22-30) mmol/L Anion Gap 13.0 (5-15) MEQ/L BUN 21 H (7-17) mg/dL Creatinine 1.65 H (0.52-1.04) mg/dL Estimated GFR 30.5 ML/MIN Glucose 135 H (74-106) mg/dL POC Glucometer 190 H (74 to 106) mg/dL Calcium 9.6 (8.4-10.2) mg/dL Total Bilirubin 0.40 (0.2-1.3) mg/dL AST 25 (14-36) U/L ALT 15 (0-35) U/L Alkaline Phosphatase 119 (38-126) U/L Serum Total Protein 6.6 (6.3-8.2) g/dL Albumin 3.4 L (3.5-5.0) g/dL Radiology Exams: Radiology Procedures Category Date Time Status CHEST 1 VIEW (PORTABLE) Stat Exams 09/12/23 11:14 Completed CHEST WITHOUT CONTRAST [CT] Stat Exams 09/12/23 15:15 Completed Assessment/Plan (1) Bilateral lower leg cellulitis Current Visit: Yes Status: Acute Assessment & Plan: Has history of MRSA. IV Clindamycin. Gerald borders. Skin/wound care. Lactobacillus for probiotics. 09/11: -Abx changed to vanc/zosyn, wound cultures taken -Venous doppler -ESR/CRP -Elevate affected limb 09/12: -Wound cultures pending -Podiatry consult reviewed, low clinical suspicion for OM, will re-eval today, if no improvement, consider MRI/Bone scan 09/13: --Wound cultures x 2 of BLE drainage showing gram + organism - will continue vanc/cefepime for now, follow culture 09/14 - Wound cultures + for Satph on one leg and Strep on the other- continue current antibiotics - BLLE wrapped by podiatry - reviewed podiatry note and agree with plan of care. Code(s): L03.116 - CELLULITIS OF LEFT LOWER LIMB; L03.115 - CELLULITIS OF RIGHT LOWER LIMB (2) Acute exacerbation of CHF (congestive heart failure) Current Visit: Yes Status: Acute Assessment & Plan: 09/13: -CT chest showing I MPRESSION: Compared to the chest radiograph done earlier today: Right upper lobe anterior segment calcified pleural based nodule measuring 5 mm likely calcified granuloma. No pulmonary mass, major collapse or consolidative changes. Right basal atelectatic bands. Mild Cardiomegaly. Rest of the findings as detailed above. -lasix decreased to TID 09/14 - Rojo d/c'd - Lasix d/c'd - Changed to PO Bumex 1mg BID - BLLE improved with compression wraps. Code(s): I50.9 - HEART FAILURE, UNSPECIFIED (3) Acute osteomyelitis of metatarsal bone of right foot Current Visit: Yes Status: Acute Assessment & Plan: -Art duplex -Podiatry consult, appreciate recs -Vanc/zosyn for now 09/12: -Wound cultures pending -Podiatry consult reviewed, low clinical suspicion for OM, will re-eval today, if no improvement, consider MRI/Bone scan 09/13: -art duplex negative for occlusion -abx changed to vanc/cefepime -Per pt podiatry to follow up today 09/14 - BLLE compression wraps in place by podiatry - Reviewed podiatry note and agree with plan of care - Podiatry to order MRI if needed- does not feel it is needed at this time. - Continue compression wraps Code(s): M86.171 - OTHER ACUTE OSTEOMYELITIS, RIGHT ANKLE AND FOOT (4) Sleep apnea Current Visit: Yes Status: Acute Assessment & Plan: - Witnessed apneas by staff. - Recommend OP sleep study - Overnight pulse ox ordered to access need for oxygen. - Pt would like to f/u with Dr. Chaidez OP for further evaluation of need for sleep study Code(s): G47.30 - SLEEP APNEA, UNSPECIFIED (5) Acute renal injury Current Visit: No Status: Acute Assessment & Plan: -near baseline of 1.1-1.3, will continue to monitor -Avoid nephrotoxic medications -Monitor renal/lytes daily -Vanc to be dosed by pharm - Lasix changed to Bumex 1mg BID PO - Acute on chronic renal failure - LENNIE worsening- stop vancomycin - F/u with Nephrology OP Code(s): N17.9 - ACUTE KIDNEY FAILURE, UNSPECIFIED (6) UTI (urinary tract infection) Current Visit: No Status: Acute Qualifiers: Assessment & Plan: - UC + fpr ecoli- cont cefepime Code(s): N39.0 - URINARY TRACT INFECTION, SITE NOT SPECIFIED (7) COPD (chronic obstructive pulmonary disease) Current Visit: No Status: Chronic Assessment & Plan: -Continue home medications, RT eval -overnight pulse ox showing need for oxygen at [facility], CM to set up- daughter refused to let pt have oxygen in the home. - case management made aware. - F/u with Pulm OP for O2 and sleep study need (8) Diabetes mellitus type 2 in obese Current Visit: No Status: Chronic Assessment & Plan: -ADA diet -A1c -SSI 09/13: -A1c 6.59 Code(s): E11.69 - TYPE 2 DIABETES MELLITUS WITH OTHER SPECIFIED COMPLICATION; E66.9 - OBESITY, UNSPECIFIED (9) Hypothyroid Current Visit: No Status: Chronic Assessment & Plan: -Continue home meds Code(s): E03.9 - HYPOTHYROIDISM, UNSPECIFIED
[2023-09-14 11:25] VITALS: BP 125/57; PULSE 77; TEMP 97.5; O2SAT 98
--- NOTE | 2023-09-14 12:28 | PCM.DS ---
Discharge Summary Date of Admission: 09/11/23 12:30 Date of Discharge: 09/14/23 Admitting Physician: CELESTINE ESTRADA MD Consults: Consults on Case 09/11/23 03:02 Nutritional Consult ROUTINE 09/11/23 12:23 Consult Podiatry ROUTINE Primary Care Provider: TRINH MINAYA <ERINN HUGHES - Last Filed: 09/14/23 12:20> Date of Admission: 09/11/23 12:30 Date of Discharge: 09/14/23 Admitting Physician: CELESTINE ESTRADA MD Consults: Consults on Case 09/11/23 03:02 Nutritional Consult ROUTINE 09/11/23 12:23 Consult Podiatry ROUTINE Primary Care Provider: TRINH MINAYA <NOEL BURCH - Last Filed: 09/14/23 19:42> Allergies <ERINN HUGHES - Last Filed: 09/14/23 12:20> <NOEL BURCH - Last Filed: 09/14/23 19:42> Allergies amoxicillin Allergy (Verified 09/10/23 23:26) levofloxacin [From Levaquin] Allergy (Verified 09/10/23 23:26) ofloxacin [From Floxin] Allergy (Verified 09/10/23 23:26) Sulfa (Sulfonamide Antibiotics) [Sulfa(Sulfonamide Antibiotics)] Allergy (Verified 09/10/23 23:26) Hospital Summary - Hospital Course Hospital Course: HPI: is a 83 year old female with a history of CHF (follows with Dr. Hummel), prior PE (off anticoagulation due to skin bleeding issues), recent UTI (in 07/2023), and prior MRSA leg skin infection (approximately 5 years ago) presented to the hospital with worsening bilateral leg edema for 10 days. The patient was seen by Dr. Minaya approximately one week ago with an increase in Bumex, but the swelling worsened. The patient has not reported fever, chest pain, or dyspnea on admission. No recent fall or skin trauma reported, but the patient has had blistering of the skin on the leg with the worsening edema. Met with patient and daughter at bedside. Bilateral extremities with compression dressings. Pt reports edema has almost resolved with compression dressings. Podiatry saw pt yesterday for sharp debridement of leg wounds. There was a concern for osteomyelitis per XR results, podiatry to follow up with MRI if needed. They do not feel this is needed at this time. Podiatry to come and cut toenails today- pt daughter refusing this and wants done OP. Rojo d/c'd and las ix D/C'd. Changed back to Bumex BID PO. Pt has had witnessed apneas and daughter does not want pt to go home with needed oxygen at night. Daughter states she does not want oxygen in her home as it is dangerous and the daughter smokes per pt. Overnight pulse ox completed and showed the need for home O2, Daughter would prefer pt f/u with Dr. Chaidez for an OP sleep study to rule out sleep apnea. Explained until that time she could have oxygen and daughter of pt is again is refusing. Pt unsure if she can tolerate a CPAP machine. Discussed in detail the different mask options and again that it can be discussed with her scientific programmer. Daughter feels she does not need oxygen at night as pt did not wear O2 last night. Case management discussed home health care needs and this was refused by daughter. Pt states she is having a wonderful day today and feels much better than when she came in. Daughter was unable to speak with physician when came around as she was outside smoking. Offered to have physican speak with her as she is willing to do so and she declined.Daughter wants pt to go home n ow. Discussed pt case with Dr. Burch and she is agreeable to pt going home today. Plan is for pt to f/u with podiatry Thursday. She will also need to f/u with Pulmonology and nephrology OP. Will d/c pt with Augmentin. - Vitals & Intake/Output Vital Signs: Vital Signs Temperature 97.5 F 09/14/23 11:24 Pulse Rate 77 09/14/23 11:24 Respiratory Rate 16 09/14/23 11:24 Blood Pressure 125/57 09/14/23 11:24 O2 Sat by Pulse Oximetry 98 09/14/23 11:24 Intake & Output: Intake & Output 09/12/23 09/13/23 09/14/23 09/15/23 12:59 11:59 11:59 11:59 Intake Total 1150 Output Total 2900 Balance -1750 Weight 85.9 kg - Lab Result Diagrams: 09/14/23 04:15 09/14/23 04:15 Lab Results-Last 24 Hrs: Lab Results-Last 24 Hours 09/13/23 09/13/23 09/14/23 Range/Units 15:45 22:31 04:15 WBC 9.4 (4.0-10.5) x10^3/uL RBC 3.49 L (4.1-5.4) x10^6/uL Hgb 11.2 L (12.0-16.0) g/dL Hct 34.3 L (35-47) % MCV 98.3 (78-100) fL MCH 32.1 H (26-32) pg MCHC 32.7 (32-36) g/dL RDW 15.6 H (11.5-14.0) % Plt Count 240 (150-450) x10^3/uL MPV 9.3 (7.5-11.0) fL Gran % 53.0 (36.0-66.0) % Immature Gran % (Auto) 1.1 H (0.00-0.4) % Nucleat RBC Rel Count 0.0 (0.00-0.1) % Eos # (Auto) 0.40 (0-0.5) x10^3/uL Immature Gran # (Auto) 0.10 H (0.00-0.03) x10^3u/L Absolute Lymphs (auto) 3.21 (1.0-4.6) x10^3/uL Absolute Monos (auto) 0.58 (0.0-1.3) x10^3/uL Absolute Nucleated RBC 0.00 (0.00-0.01) x10^3u/L Lymphocytes % 34.3 (24.0-44.0) % Monocytes % 6.2 (0.0-12.0) % Eosinophils % 4.3 (0.00-5.0) % Basophils % 1.1 (0.0-0.4) % Absolute Granulocytes 4.97 (1.4-6.9) x10^3/uL Basophils # 0.10 (0-0.4) x10^3/uL Sodium (137-145) mmol/L Potassium (3.5-5.1) mmol/L Chloride (98-107) mmol/L Carbon Dioxide (22-30) mmol/L Anion Gap (5-15) MEQ/L BUN (7-17) mg/dL Creatinine (0.52-1.04) mg/dL Estimated GFR ML/MIN Glucose (74-106) mg/dL POC Glucometer 161 H 150 H (74 to 106) mg/dL Calcium (8.4-10.2) mg/dL Total Bilirubin (0.2-1.3) mg/dL AST (14-36) U/L ALT (0-35) U/L Alkaline Phosphatase (38-126) U/L Serum Total Protein (6.3-8.2) g/dL Albumin (3.5-5.0) g/dL 09/14/23 09/14/23 09/14/23 Range/Units 04:15 07:20 11:16 WBC (4.0-10.5) x10^3/uL RBC (4.1-5.4) x10^6/uL Hgb (12.0-16.0) g/dL Hct (35-47) % MCV (78-100) fL MCH (26-32) pg MCHC (32-36) g/dL RDW (11.5-14.0) % Plt Count (150-450) x10^3/uL MPV (7.5-11.0) fL Gran % (36.0-66.0) % Immature Gran % (Auto) (0.00-0.4) % Nucleat RBC Rel Count (0.00-0.1) % Eos # (Auto) (0-0.5) x10^3/uL Immature Gran # (Auto) (0.00-0.03) x10^3u/L Absolute Lymphs (auto) (1.0-4.6) x10^3/uL Absolute Monos (auto) (0.0-1.3) x10^3/uL Absolute Nucleated RBC (0.00-0.01) x10^3u/L Lymphocytes % (24.0-44.0) % Monocytes % (0.0-12.0) % Eosinophils % (0.00-5.0) % Basophils % (0.0-0.4) % Absolute Granulocytes (1.4-6.9) x10^3/uL Basophils # (0-0.4) x10^3/uL Sodium 134 L (137-145) mmol/L Potassium 3.9 (3.5-5.1) mmol/L Chloride 94 L (98-107) mmol/L Carbon Dioxide 31 H (22-30) mmol/L Anion Gap 13.0 (5-15) MEQ/L BUN 21 H (7-17) mg/dL Creatinine 1.65 H (0.52-1.04) mg/dL Estimated GFR 30.5 ML/MIN Glucose 135 H (74-106) mg/dL POC Glucometer 190 H 190 H (74 to 106) mg/dL Calcium 9.6 (8.4-10.2) mg/dL Total Bilirubin 0.40 (0.2-1.3) mg/dL AST 25 (14-36) U/L ALT 15 (0-35) U/L Alkaline Phosphatase 119 (38-126) U/L Serum Total Protein 6.6 (6.3-8.2) g/dL Albumin 3.4 L (3.5-5.0) g/dL Micro Results-Entire Visit: Microbiology 09/11/23 10:07 Wound Culture - Final Leg - Left Lower Medial Staphylococcus Lentus Streptococcus Agalactiae 09/11/23 10:07 Wound Culture - Final Leg - Left Lateral Staphylococcus Aureus 09/11/23 00:34 Urine Culture - Final Catherized Escherichia Coli 09/10/23 00:05 Blood Culture - Preliminary Blood 09/10/23 00:07 Blood Culture - Preliminary Blood Accuchecks Date 09/14/23 Date 09/14/23 Date 09/13/23 Date 09/13/23 Time 11:25 Time 07:23 Time 22:33 Time 15:59 - Radiology Exams Ordered Rad Exams-Entire Visit: Radiology Procedures Category Date Time Status CHEST WITHOUT CONTRAST [CT] Stat Exams 09/12/23 15:15 Completed - Procedures and Test Procedures and Tests throughout Hospitalization: Therapy Orders & Screens 09/11/23 03:50 Respiratory Therapy Assessment DAILY Comment: Diagnosis: Lower extremity cellulitis, CHF 09/11/23 07:00 Respiratory MDI DAILY Comment: TRELEGY DAILY Diagnosis: Lower extremity cellulitis, CHF 09/14/23 11:28 RT Miscellaneous Order ROUTINE Comment: Physician Instructions: Reason For Exam: overnight continous pulse ox for possible home o2 Diagnosis: OSTEOMYELITIS, CELLULITIS BLE, CHF <ERINN HUGHES - Last Filed: 09/14/23 12:20> - Vitals & Intake/Output Vital Signs: Vital Signs Temperature 97.5 F 09/14/23 11:24 Pulse Rate 77 09/14/23 11:24 Respiratory Rate 16 09/14/23 11:24 Blood Pressure 125/57 09/14/23 11:24 O2 Sat by Pulse Oximetry 98 09/14/23 11:24 Intake & Output: Intake & Output 09/12/23 09/13/23 09/14/23 09/15/23 12:59 11:59 11:59 11:59 Intake Total 1150 480 Output Total 2900 Balance -1750 480 Weight 85.9 kg - Lab Result Diagrams: 09/14/23 04:15 09/14/23 04:15 Lab Results-Last 24 Hrs: Lab Results-Last 24 Hours 09/13/23 09/14/23 09/14/23 Range/Units 22:31 04:15 04:15 WBC 9.4 (4.0-10.5) x10^3/uL RBC 3.49 L (4.1-5.4) x10^6/uL Hgb 11.2 L (12.0-16.0) g/dL Hct 34.3 L (35-47) % MCV 98.3 (78-100) fL MCH 32.1 H (26-32) pg MCHC 32.7 (32-36) g/dL RDW 15.6 H (11.5-14.0) % Plt Count 240 (150-450) x10^3/uL MPV 9.3 (7.5-11.0) fL Gran % 53.0 (36.0-66.0) % Immature Gran % (Auto) 1.1 H (0.00-0.4) % Nucleat RBC Rel Count 0.0 (0.00-0.1) % Eos # (Auto) 0.40 (0-0.5) x10^3/uL Immature Gran # (Auto) 0.10 H (0.00-0.03) x10^3u/L Absolute Lymphs (auto) 3.21 (1.0-4.6) x10^3/uL Absolute Monos (auto) 0.58 (0.0-1.3) x10^3/uL Absolute Nucleated RBC 0.00 (0.00-0.01) x10^3u/L Lymphocytes % 34.3 (24.0-44.0) % Monocytes % 6.2 (0.0-12.0) % Eosinophils % 4.3 (0.00-5.0) % Basophils % 1.1 (0.0-0.4) % Absolute Granulocytes 4.97 (1.4-6.9) x10^3/uL Basophils # 0.10 (0-0.4) x10^3/uL Sodium 134 L (137-145) mmol/L Potassium 3.9 (3.5-5.1) mmol/L Chloride 94 L (98-107) mmol/L Carbon Dioxide 31 H (22-30) mmol/L Anion Gap 13.0 (5-15) MEQ/L BUN 21 H (7-17) mg/dL Creatinine 1.65 H (0.52-1.04) mg/dL Estimated GFR 30.5 ML/MIN Glucose 135 H (74-106) mg/dL POC Glucometer 150 H (74 to 106) mg/dL Calcium 9.6 (8.4-10.2) mg/dL Total Bilirubin 0.40 (0.2-1.3) mg/dL AST 25 (14-36) U/L ALT 15 (0-35) U/L Alkaline Phosphatase 119 (38-126) U/L Serum Total Protein 6.6 (6.3-8.2) g/dL Albumin 3.4 L (3.5-5.0) g/dL 09/14/23 09/14/23 Range/Units 07:20 11:16 WBC (4.0-10.5) x10^3/uL RBC (4.1-5.4) x10^6/uL Hgb (12.0-16.0) g/dL Hct (35-47) % MCV (78-100) fL MCH (26-32) pg MCHC (32-36) g/dL RDW (11.5-14.0) % Plt Count (150-450) x10^3/uL MPV (7.5-11.0) fL Gran % (36.0-66.0) % Immature Gran % (Auto) (0.00-0.4) % Nucleat RBC Rel Count (0.00-0.1) % Eos # (Auto) (0-0.5) x10^3/uL Immature Gran # (Auto) (0.00-0.03) x10^3u/L Absolute Lymphs (auto) (1.0-4.6) x10^3/uL Absolute Monos (auto) (0.0-1.3) x10^3/uL Absolute Nucleated RBC (0.00-0.01) x10^3u/L Lymphocytes % (24.0-44.0) % Monocytes % (0.0-12.0) % Eosinophils % (0.00-5.0) % Basophils % (0.0-0.4) % Absolute Granulocytes (1.4-6.9) x10^3/uL Basophils # (0-0.4) x10^3/uL Sodium (137-145) mmol/L Potassium (3.5-5.1) mmol/L Chloride (98-107) mmol/L Carbon Dioxide (22-30) mmol/L Anion Gap (5-15) MEQ/L BUN (7-17) mg/dL Creatinine (0.52-1.04) mg/dL Estimated GFR ML/MIN Glucose (74-106) mg/dL POC Glucometer 190 H 190 H (74 to 106) mg/dL Calcium (8.4-10.2) mg/dL Total Bilirubin (0.2-1.3) mg/dL AST (14-36) U/L ALT (0-35) U/L Alkaline Phosphatase (38-126) U/L Serum Total Protein (6.3-8.2) g/dL Albumin (3.5-5.0) g/dL Micro Results-Entire Visit: Microbiology 09/11/23 10:07 Wound Culture - Final Leg - Left Lower Medial Staphylococcus Lentus Streptococcus Agalactiae 09/11/23 10:07 Wound Culture - Final Leg - Left Lateral Staphylococcus Aureus 09/11/23 00:34 Urine Culture - Final Catherized Escherichia Coli 09/10/23 00:05 Blood Culture - Preliminary Blood 09/10/23 00:07 Blood Culture - Preliminary Blood Accuchecks Date 09/14/23 Date 09/14/23 Date 09/13/23 Time 11:25 Time 07:23 Time 22:33 - Procedures and Test Procedures and Tests throughout Hospitalization: Therapy Orders & Screens 09/11/23 03:50 Respiratory Therapy Assessment DAILY Comment: Diagnosis: Lower extremity cellulitis, CHF 09/11/23 07:00 Respiratory MDI DAILY Comment: TRELEGY DAILY Diagnosis: Lower extremity cellulitis, CHF 09/14/23 11:28 RT Miscellaneous Order ROUTINE Comment: Physician Instructions: Reason For Exam: overnight continous pulse ox for possible home o2 Diagnosis: OSTEOMYELITIS, CELLULITIS BLE, CHF <NOEL BURCH - Last Filed: 09/14/23 19:42> Discharge Exam General Appearance: no apparent distress, alert, obese Neurologic Exam: alert, oriented x 3, cooperative, normal mood/affect, nml cerebellar function, sensation nml, No motor deficits Eye Exam: PERRL, EOMI, eyes nml inspection Ears, Nose, Throat Exam: normal ENT inspection, pharynx normal, moist mucous membranes Neck Exam: normal inspection, non-tender, supple, full range of motion Respiratory Exam: normal breath sounds, lungs clear, No respiratory distress Cardiovascular Exam: regular rate/rhythm, normal heart sounds Gastrointestinal/Abdomen Exam: soft, No tenderness, No mass Pelvic Exam: deferred Rectal Exam: deferred Back Exam: normal inspection, normal range of motion, No CVA tenderness, No vertebral tenderness Extremity Exam: normal inspection, normal range of motion Skin Exam: normal color, warm, dry, other (BLLE wrapped, Dried blood seen on Right foot 5th digit.) Wound Assessment: Skin/Wound Assessment Wound/Incision Assessment Start: 09/11/23 01:00 Text: Status: Active Freq: Q6H Protocol: Document 09/14/23 07:00 BRIAN (Rec: 09/14/23 08:19 BRIAN [id number]) Wound/Incision Assessment Left Lower Other Wound Assessment Shift Assessment Wound Type SCAB, SKIN TEAR, OPEN AREA Drainage Odor None/Absent Primary Dressing UNNA BOOT TO BLE Comment SEE PIC IN CHART, BLE WRAPPED IN UNNA BOOTS unchanged from last assessment .cont to be true Right Medial Calf Wound Assessment Shift Assessment Wound Type bruise/blister Wound Stage Non Pressure Wound Drainage Amount Minimal Drainage Description small about of dried blood noted on fluff roll to right lateral 5th toe Drainage Odor None/Absent Primary Dressing UNNA BOOT to BLE Comment SEE PIC IN CHART, BLE WRAPPED IN UNNA BOOTS unchanged since last assessment. cont to be true Wound Photo Photo Taken No Comment: pic from admission placed in chart. now BLE wrapped in [place] boots <SUKHDEEP-ERINN MURILLO - Last Filed: 09/14/23 12:20> Final Diagnosis/Problem List - Final Discharge Diagnosis/Problem (1) Bilateral lower leg cellulitis Status: Acute Code(s): L03.116 - CELLULITIS OF LEFT LOWER LIMB; L03.115 - CELLULITIS OF RIGHT LOWER LIMB (2) Acute exacerbation of CHF (congestive heart failure) Status: Acute Code(s): I50.9 - HEART FAILURE, UNSPECIFIED (3) Acute osteomyelitis of metatarsal bone of right foot Status: Acute Code(s): M86.171 - OTHER ACUTE OSTEOMYELITIS, RIGHT ANKLE AND FOOT (4) Sleep apnea Status: Acute Code(s): G47.30 - SLEEP APNEA, UNSPECIFIED (5) Acute renal injury Status: Acute Code(s): N17.9 - ACUTE KIDNEY FAILURE, UNSPECIFIED (6) UTI (urinary tract infection) Status: Acute Code(s): N39.0 - URINARY TRACT INFECTION, SITE NOT SPECIFIED (7) COPD (chronic obstructive pulmonary disease) Status: Chronic (8) Diabetes mellitus type 2 in obese Status: Chronic Code(s): E11.69 - TYPE 2 DIABETES MELLITUS WITH OTHER SPECIFIED COMPLICATION; E66.9 - OBESITY, UNSPECIFIED (9) Hypothyroid Status: Chronic Assessment & Plan: (1) Bilateral lower leg cellulitis Current Visit: Yes Status: Acute Assessment & Plan: Has history of MRSA. IV Clindamycin. Gerald borders. Skin/wound care. La ctobacillus for probiotics. 09/11: -Abx changed to vanc/zosyn, wound cultures taken -Venous doppler -ESR/CRP -Elevate affected limb 09/12: -Wound cultures pending -Podiatry consult reviewed, low clinical suspicion for OM, will re-eval today, if no improvement, consider MRI/Bone scan 09/13: --Wound cultures x 2 of BLE drainage showing gram + organism - will continue vanc/cefepime for now, follow culture 09/14 - Wound cultures + for Satph on one leg and Strep on the other- continue current antibiotics - BLLE wrapped by podiatry - reviewed podiatry note and agree with plan of care. Code(s): L03.116 - CELLULITIS OF LEFT LOWER LIMB; L03.115 - CELLULITIS OF RIGHT LOWER LIMB (2) Acute exacerbation of CHF (congestive heart failure) Current Visit: Yes Status: Acute Assessment & Plan: 09/13: -CT chest showing I MPRESSION: Compared to the chest radiograph done earlier today: Right upper lobe anterior segment calcified pleural based nodule measuring 5 mm likely calcified granuloma. No pulmonary mass, major collapse or consolidative changes. Right basal atelectatic bands. Mild Cardiomegaly. Rest of the findings as detailed above. -lasix decreased to TID 09/14 - Rojo d/c'd - Lasix d/c'd - Changed to PO Bumex 1mg BID - BLLE improved with compression wraps. - Bumex was temporarily increased by PCP prior to admission. Dose lowered as higher dose not needed a this time. Code(s): I50.9 - HEART FAILURE, UNSPECIFIED (3) Acute osteomyelitis of metatarsal bone of right foot Current Visit: Yes Status: Acute Assessment & Plan: -Art duplex -Podiatry consult, appreciate recs -Vanc/zosyn for now 09/12: -Wound cultures pending -Podiatry consult reviewed, low clinical suspicion for OM, will re-eval today, if no improvement, consider MRI/Bone scan 09/13: -art duplex negative for occlusion -abx changed to vanc/cefepime -Per pt podiatry to follow up today 09/14 - BLLE compression wraps in place by podiatry - Reviewed podiatry note and agree with plan of care - Podiatry to order MRI if needed- does not feel it is needed at this time. - Continue compression wraps Code(s): M86.171 - OTHER ACUTE OSTEOMYELITIS, RIGHT ANKLE AND FOOT (4) Sleep apnea Current Visit: Yes Status: Acute Assessment & Plan: - Witnessed apneas by staff. - Recommend OP sleep study - Overnight pulse ox ordered to access need for oxygen. - Pt would like to f/u with Dr. Chaidez OP for further evaluation of need for sleep study Code(s): G47.30 - SLEEP APNEA, UNSPECIFIED (5) Acute renal injury Current Visit: No Status: Acute Assessment & Plan: -near baseline of 1.1-1.3, will continue to monitor -Avoid nephrotoxic medications -Monitor renal/lytes daily -Vanc to be dosed by pharm - Lasix changed to Bumex 1mg BID PO - Acute on chronic renal failure - LENNIE worsening- stop vancomycin - F/u with Nephrology OP Code(s): N17.9 - ACUTE KIDNEY FAILURE, UNSPECIFIED (6) UTI (urinary tract infection) Current Visit: No Status: Acute Qualifiers: Assessment & Plan: - UC + fpr ecoli- cont cefepime Code(s): N39.0 - URINARY TRACT INFECTION, SITE NOT SPECIFIED (7) COPD (chronic obstructive pulmonary disease) Current Visit: No Status: Chronic Assessment & Plan: -Continue home medications, RT eval -overnight pulse ox showing need for oxygen at [facility], CM to set up- daughter refused to let pt have oxygen in the home. - case management made aware. - F/u with Pulm OP for O2 and sleep study need (8) Diabetes mellitus type 2 in obese Current Visit: No Status: Chronic Assessment & Plan: -ADA diet -A1c -SSI 09/13: -A1c 6.59- uncontrolled Code(s): E11.69 - TYPE 2 DIABETES MELLITUS WITH OTHER SPECIFIED COMPLICATION; E66.9 - OBESITY, UNSPECIFIED (9) Hypothyroid Current Visit: No Status: Chronic Assessment & Plan: -Continue home meds Code(s): E03.9 - HYPOTHYROIDISM, UNSPECIFIED Code(s): E03.9 - HYPOTHYROIDISM, UNSPECIFIED <ERINN HUGHES - Last Filed: 09/14/23 12:20> - Discharge Discharge Date: 09/14/23 <ERINN HUGHES - Last Filed: 09/14/23 12:20> <NOEL BURCH - Last Filed: 09/14/23 19:42> - Discharge Disposition: HOME HEALTH SERVICE Condition: Fair Prescriptions: New Bumetanide 1 mg [Bumex 1 mg] 1 mg PO BID DIURETIC 30 Days #60 tablet Cefdinir 300 mg PO BID 10 Days #20 cap Continue Allopurinol 300 mg [Zyloprim 300 mg] 300 mg PO DAILY Levothyroxine Sodium [Synthroid] 225 mcg PO DAILY Metformin HCl 500 mg PO DAILY Acetaminophen/Diphenhydramine [Tylenol Pm Exstr 500-25Mg Cplt] 1 tab PO HS Diphenhydramine HCl [Benadryl Allergy] 50 mg PO BID Potassium Chloride 10 meq PO TID Metoprolol Tartrate 50 mg [Lopressor 50 MG] 50 mg PO DAILY Fluticasone/Umeclidin/Vilanter [Trelegy Ellipta 100-62.5-25] 1 inh PO DAILY Hydrocodone/Acetaminophen [Hydrocodone-Acetamin 7.5-325] 1 tab PO Q6-8HPRN PRN PRN Reason: back pain Brexpiprazole [Rexulti] 0.5 mg PO DAILY Aspirin EC 81 mg [Ecotrin 81 mg] 1 tab PO DAILY Amlodipine Besylate 2.5 mg PO DAILY levalbuterol HCl [Xopenex 1.25 MG/0.5 ML UD NEBULE] 1.25 mg IH DAILY PRN PRN PRN Reason: Shortness Of Breath Discontinued Bumetanide 1 mg [Bumex 1 mg] 2 mg PO TID Instructions: Dependent Edema (DC), Shortness of Breath (Dyspnea) (DC), Cefdinir Additional Instructions: REFERRAL WAS FAXED TO [facility]. THEY WERE TOLD TO HOLD SERVICES AT THIS TIME TIME UNTIL YOU ARE READY. YOU CAN CONTACT THEM AT [phone] WHEN YOU ARE READY FOR SERVICES TO START. 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 office ) LOGAN Encounter - LOGAN Encounter Attestation LOGAN Encounter Attestation: "IhsurajpersonallyseenandjameelClem,CECY REBOLLEDOYE andhavediscussed pertinent aspects of their care with Erinn Galvan agree with the history, physical exam (any modifications based on my personal exam will be noted below), assessment, and plan as outlined in original note. Please see immediately below for my summary of findings and additional assessment and plan along with any meaningful corrections/explanations to the Subjective/Objective portions of the LOGAN note will be noted." My portion of the encounter took place via telemedicine. -Symptoms of CHF have improved. Low suspicion for osteomyelitis of foot per podiatry eval. At this time okay to discharge home on oral antibiotics and close podiatry follow up. <NOEL BURCH - Last Filed: 09/14/23 19:42>
[2023-09-14] MEDS: NYSTOP POWDER 15 GM TP SCH (12:46)
--- NOTE | 2023-09-15 15:13 | ECHO ---
DATE OF PROCEDURE: 09/11/2023 CLINICAL INFORMATION: Congestive heart failure. TECHNIQUE: Transthoracic 2D and M-mode study echocardiogram. The patient underwent 2D echo, M-mode study and color flow mapping which was technically difficult because of poor acoustic window due to poor lung windows and body habitus. However, 2D images suggested mild to moderate concentric left ventricular hypertrophy, normal left ventricle size and normal left ventricular systolic function with calculated ejection fraction about 62%. Both atrial size were within normal limits. The right ventricle appears to be within normal limits. There was no obvious pericardial effusion even though the pericardium appears to be slightly thickened but no obvious effusion noted. Aortic root size measured 2.2 cm within normal limits. Color Doppler flow mapping was difficult to obtain however suggested trace mitral regurgitation and trace tricuspid regurgitation. IMPRESSION: 1) TECHNICALLY DIFFICULT STUDY. 2) MILD TO MODERATE CONCENTRIC LEFT VENTRICULAR HYPERTROPHY. 3) LOW NORMAL LEFT VENTRICULAR SYSTOLIC FUNCTION. 4) TRACE MITRAL REGURGITATION. 5) TRACE TRICUSPID REGURGITATION.
== END 2023-09-14 13:25 | disposition home health service (06) | DRG 603 ==
LOC: ED 22:46 → MED SURG 09-11 01:42 → OBSVTOIN 09-11 12:30
PROVIDERS: ADMIT Internal Medicine; ATTEND Internal Medicine
PROC: 2W1MX6Z Compression of Left Lower Extremity using Pressure Dressing (ICD-10-PCS; principal; 2023-09-11)
PROC: 2W1LX6Z Compression of Right Lower Extremity using Pressure Dressing (ICD-10-PCS; 2023-09-11)
PROC: 2W1MX6Z Compression of Left Lower Extremity using Pressure Dressing (ICD-10-PCS; 2023-09-13)
PROC: 2W1LX6Z Compression of Right Lower Extremity using Pressure Dressing (ICD-10-PCS; 2023-09-13)
DX: L03.116 Cellulitis of left lower limb (principal); M86.171 Other acute osteomyelitis, right ankle and foot; N17.9 Acute kidney failure, unspecified; N39.0 Urinary tract infection, site not specified; L03.115 Cellulitis of right lower limb; I11.0 Hypertensive heart disease with heart failure; I50.9 Heart failure, unspecified; G47.30 Sleep apnea, unspecified; J44.9 Chronic obstructive pulmonary disease, unspecified; E11.69 Type 2 diabetes mellitus with other specified complication; E66.9 Obesity, unspecified; E03.9 Hypothyroidism, unspecified; D72.829 Elevated white blood cell count, unspecified; I48.91 Unspecified atrial fibrillation; R60.9 Edema, unspecified; S80.821A Blister (nonthermal), right lower leg, initial encounter; Z79.899 Other long term (current) drug therapy; Z20.828 Contact with and (suspected) exposure to other viral communicable diseases; Z85.828 Personal history of other malignant neoplasm of skin; Z86.711 Personal history of pulmonary embolism
CPT/HCPCS: 0241U; 29580; 36000; 36415; 51702; 71045; 71250; 73620; 80048; 80053; 81001; 82947; 83036; 83605; 83735; 83880; 84145; 84484; 85025; 85652; 86140; 87040; 87070; 87077; 87086; 87186; 93005; 93041; 93306; 93925; 93970; 94640; 94760; 96374; 99285; J0692; J1644; J1940; J2405; J2543; Q3014; A9270-GY; J3370

== ENCOUNTER 2023-11-30 12:06 | Emergency (ER) | payer MEDICARE ==
--- NOTE | 2023-11-30 12:12 | ERPHSYRPT ---
- History of Present Illness Time Seen by Provider: 11/30/23 12:11 Source: patient, family Exam Limitations: no limitations Physician History: This is a morbidly obese 83-year-old white female patient of Dr. Minaya, radio sales account executive Dr. De and property disposal officer Dr. Hummel who was at the podiatry office having her Unna boots changed to treat chronic venous stasis disease when her legs were weak. Patient had several doctors appointments today and that was the first 1. She also felt very sleepy per daughter's report. Patient's daughter states that the patient also said that she was having a little chest discomfort after she nearly fell and the patient's son-in-law caught her underneath the arms and chest before she fell and hit the ground. Daughter was concerned because the patient has multiple medical issues and brought her into the emergency department by private vehicle. At the time of this examination, the patient states that she feels a lot better now and does not feel as though she needs to be here. Patient has multiple medical problems including nicki pheral neuropathy, arrhythmia (on Eliquis), hypertension, COPD, diabetes, hypothyroidism, degenerative disc disease and chronic renal disease. Timing/Duration: today Severity: mild (Moderate) Character of Deficits: new weakness (Bilateral lower extremities) Deficits: decrease ability to walk (Chronic) Baseline/Normal Cognition: alert oriented x 3 Current Cognition: alert oriented x 3 Baseline Gait: walks only w/assistance (Chronically) Associated Symptoms: other (Weakness of bilateral lower extremities) Allergies/Adverse Reactions: amoxicillin Allergy (Verified 11/30/23 12:46) levofloxacin [From Levaquin] Allergy (Verified 11/30/23 12:46) ofloxacin [From Floxin] Allergy (Verified 11/30/23 12:46) Sulfa (Sulfonamide Antibiotics) [Sulfa(Sulfonamide Antibiotics)] Allergy (Verified 11/30/23 12:46) Home Medications: Allopurinol 300 mg [Zyloprim 300 mg] 300 mg PO DAILY 11/30/16 [History] Levothyroxine Sodium [Synthroid] 225 mcg PO DAILY 11/30/16 [History] Metformin HCl 500 mg PO DAILY 04/24/18 [History] Acetaminophen/Diphenhydramine [Tylenol Pm Exstr 500-25Mg Cplt] 1 tab PO HS 09/18/21 [History] Diphenhydramine HCl [Benadryl Allergy] 50 mg PO BID 04/19/22 [History] Potassium Chloride 10 meq PO TID 04/19/22 [History] Metoprolol Tartrate 50 mg [Lopressor 50 MG] 50 mg PO DAILY 11/21/22 [History] Fluticasone/Umeclidin/Vilanter [Trelegy Ellipta 100-62.5-25] 1 inh PO DAILY 07/15/23 [History] Brexpiprazole [Rexulti] 0.5 mg PO DAILY 09/10/23 [History] Hydrocodone/Acetaminophen [Hydrocodone-Acetamin 7.5-325] 1 tab PO Q6-8HPRN PRN 09/10/23 [History] Amlodipine Besylate 2.5 mg PO DAILY 09/11/23 [History] Aspirin EC 81 mg [Ecotrin 81 mg] 1 tab PO DAILY 09/11/23 [History] levalbuterol HCl [Xopenex 1.25 MG/0.5 ML UD NEBULE] 1.25 mg IH DAILY PRN PRN 09/11/23 [History] Hx Tetanus, Diphtheria Vaccination/Date Given: Yes Hx Influenza Vaccination/Date Given: Yes Hx Pneumococcal Vaccination/Date Given: Yes Travel Risk - International Travel Have you traveled outside of the country in past 3 weeks: No - Coronavirus Screening Are you exhibiting any of the following symptoms?: No Close contact with a COVID-19 positive Pt in past 14-21 Days: No - Vaccine Status Have you recieved a Covid-19 vaccination: Yes Funeral Prearrangement Counselor: Moderna - Vaccination Dates Date of 2cond Vaccination (if applicable): . - Review of Systems Constitutional: Weakness (Bilateral lower extremities primarily) Eyes: No Symptoms Ears, Nose, & Throat: No Symptoms Respiratory: No Symptoms Cardiac: No Symptoms Abdominal/Gastrointestinal: No Symptoms Genitourinary Symptoms: No Symptoms Musculoskeletal: Other (Bilateral lower extremity weakness without injury) Skin: No Symptoms Neurological: No Symptoms Psychological: No Symptoms Endocrine: No Symptoms, Excessive Sweating Immunological/Allergic: No Symptoms All Other Systems: Reviewed and Negative - Past Medical History Pertinent Past Medical History: Yes Neurological History: Peripheral Neuropathy ENT History: No Pertinent History Cardiac History: Arrhythmia, Hypertension Respiratory History: COPD Endocrine Medical History: Diabetes Type II, Hypothyroidism Musculoskeletal History: Arthritis, Degenerative Disk Disease, Osteoarthritis, Rheumatoid Arthritis GI Medical History: Diverticulitis, Diverticulosis, Hemorrhoids, Hernia, Other History: Renal Disease Psycho-Social History: No Pertinent History Female Reproductive Disorders: No Pertinent History Other Medical History: PE, ARRYTHMIA, RENAL DZ, , MYELODSYPLASTIC SYNDROME. PSH: CARDIAC CATH, HYSTERECTOMY, LUMPECTOMY, BASAL AND SQUAMOUS CELL CA. - Past Surgical History Past Surgical History: Yes Neuro Surgical History: No Pertinent History Cardiac: Cardiac Catheterization Respiratory: No Pertinent History Gastrointestinal: Other Genitourinary: No Pertinent History Musculoskeletal: No Pertinent History Female Surgical History: Hysterectomy, Lumpectomy Other Surgical History: breast tumor removed, tumor removed from back benign, 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, cauterization due to intestinal bleed, colon ruptured was septic and has colostomy - Social History Smoking Status: Never smoker Exposure to second hand smoke: Yes Drug Use: none Patient Lives Alone: No Significant Family History: no pertinent family hx - Nursing Vital Signs Nursing Vital Signs: Initial Vital Signs Temperature 97 F 11/30/23 12:26 Pulse Rate 70 11/30/23 12:26 Respiratory Rate 18 11/30/23 12:26 Blood Pressure 189/99 11/30/23 12:26 O2 Sat by Pulse Oximetry 97 11/30/23 12:26 Pain Scale Pain Intensity 5 - Rohini Coma Scale Best Eye Response (Rohini): (4) open spontaneously Best Verbal Response (Rohini): (5) oriented Best Motor Response (Buchanan): (6) obeys commands Rohini Total: 15 - Physical Exam General Appearance: no apparent distress, alert, anxiety, obese Eye Exam: bilateral eye: normal inspection, PERRL, EOMI Ears, Nose, Throat Exam: normal ENT inspection, moist mucous membranes Neck Exam: normal inspection, non-tender, supple, full range of motion Respiratory: normal breath sounds, lungs clear, airway intact, No chest tenderness, No respiratory distress Cardiovascular: regular rate/rhythm, normal heart sounds, normal peripheral pulses Gastrointestinal: soft, normal bowel sounds, No tenderness Pelvic Exam: not done Rectal Exam: not done Back Exam: normal inspection, normal range of motion, No CVA tenderness, No vertebral tenderness Extremity Exam: other (Patient's bilateral lower extremity have Unna boots in place) Mental Status: alert, oriented x 3, cooperative pattern hand Exam: normal speech, PERRL, hearing deficit (R) (Chronic), hearing deficit (L) (Chronic), tongue midline Coordination/Gait: normal finger to nose Skin Exam: normal color, warm, dry SpO2 Interpretation: normal O2 Delivery: Room Air - Course Nursing assessment & vital signs reviewed: Yes EKG Interpreted by Me: RATE (67), Sinus Rhythm, NORMAL AXIS, NORMAL INTERVALS, NORMAL QRS, NORMAL ST-T, Other (No acute ischemic changes on today's twelve-lead EKG) Ordered Tests: Active Orders 24 hr Category Date Time Status Swim Coach STAT Care 11/30/23 12:30 Active EKG-ER Only STAT Care 11/30/23 12:29 Active IV Insertion STAT Care 11/30/23 12:29 Active Pulse Oximetry (ED) STAT Care 11/30/23 12:29 Active BLOOD CULTURE Stat Lab 11/30/23 13:04 Received CBC W DIFF Stat Lab 11/30/23 12:53 Completed CMP Stat Lab 11/30/23 12:53 Completed CULTURE,URINE Stat Lab 11/30/23 14:30 Received MAGNESIUM Stat Lab 11/30/23 12:53 Completed NT PRO BNPII Stat Lab 11/30/23 12:53 Completed POCT GLUCOSE Stat Lab 11/30/23 12:22 Completed TROPONIN Q4H Lab 11/30/23 12:53 Completed TROPONIN Q4H Lab 11/30/23 16:30 Ordered TROPONIN Q4H Lab 11/30/23 20:30 Ordered UA W/RFX UR CULTURE Stat Lab 11/30/23 14:23 Completed Lab/Rad Data: Laboratory Result Diagrams 11/30/23 12:53 11/30/23 12:53 Laboratory Results 11/30/23 11/30/23 11/30/23 Range/Units 14:23 12:53 12:53 WBC (4.0-10.5) x10^3/uL RBC (4.1-5.4) x10^6/uL Hgb (12.0-16.0) g/dL Hct (35-47) % MCV (78-100) fL MCH (26-32) pg MCHC (32-36) g/dL RDW (11.5-14.0) % Plt Count (150-450) x10^3/uL MPV (7.5-11.0) fL Gran % (36.0-66.0) % Immature Gran % (Auto) (0.00-0.4) % Nucleat RBC Rel Count (0.00-0.1) % Eos # (Auto) (0-0.5) x10^3/uL Immature Gran # (Auto) (0.00-0.03) x10^3u/L Absolute Lymphs (auto) (1.0-4.6) x10^3/uL Absolute Monos (auto) (0.0-1.3) x10^3/uL Absolute Nucleated RBC (0.00-0.01) x10^3u/L Lymphocytes % (24.0-44.0) % Monocytes % (0.0-12.0) % Eosinophils % (0.00-5.0) % Basophils % (0.0-0.4) % Absolute Granulocytes (1.4-6.9) x10^3/uL Basophils # (0-0.4) x10^3/uL Sodium (137-145) mmol/L Potassium (3.5-5.1) mmol/L Chloride (98-107) mmol/L Carbon Dioxide (22-30) mmol/L Anion Gap (5-15) MEQ/L BUN (7-17) mg/dL Creatinine (0.52-1.04) mg/dL Estimated GFR ML/MIN Glucose (74-106) mg/dL POC Glucometer (74 to 106) mg/dL Calcium (8.4-10.2) mg/dL Magnesium (1.6-2.3) mg/dL Total Bilirubin (0.2-1.3) mg/dL AST (14-36) U/L ALT (0-35) U/L Alkaline Phosphatase (38-126) U/L Ammonia 34 H (9-30) umol/L Troponin I < 0.012 (0.000-0.034) ng/mL NT-Pro-B Natriuret Pep 170 (<300) pg/mL Serum Total Protein (6.3-8.2) g/dL Albumin (3.5-5.0) g/dL Urine Color Yellow (Yellow) Urine Appearance Cloudy A (Clear) Urine pH 5.5 (4.6-8.0) Ur Specific [place] 1.020 (1.005-1.030) Urine Protein >=1000 A (Negative) Urine Glucose (UA) Negative (Negative) mg/dL Urine Ketones Negative (Negative) Urine Blood Moderate A (Negative) Urine Nitrite Negative (Negative) Urine Bilirubin Negative (Negative) Urine Urobilinogen 0.2 (0.2) mg/dL Ur Leukocyte Esterase Negative (Negative) U Hyaline Cast (Auto) 0-2 (0-2) /LPF Urine Microscopic RBC 0-2 (0-5) /HPF Urine Microscopic WBC 0-2 (0-5) /HPF Ur Epithelial Cells Rare (None Seen) /HPF Urine Bacteria None Seen (None Seen) /HPF Urine Culture Reflexed ORDERED SEPARATELY (NO) 11/30/23 11/30/23 11/30/23 Range/Units 12:53 12:53 12:22 WBC 11.2 H (4.0-10.5) x10^3/uL RBC 3.88 L (4.1-5.4) x10^6/uL Hgb 12.2 (12.0-16.0) g/dL Hct 37.9 (35-47) % MCV 97.7 (78-100) fL MCH 31.4 (26-32) pg MCHC 32.2 (32-36) g/dL RDW 15.6 H (11.5-14.0) % Plt Count 203 (150-450) x10^3/uL MPV 10.2 (7.5-11.0) fL Gran % 64.7 (36.0-66.0) % Immature Gran % (Auto) 1.1 H (0.00-0.4) % Nucleat RBC Rel Count 0.0 (0.00-0.1) % Eos # (Auto) 0.39 (0-0.5) x10^3/uL Immature Gran # (Auto) 0.12 H (0.00-0.03) x10^3u/L Absolute Lymphs (auto) 2.80 (1.0-4.6) x10^3/uL Absolute Monos (auto) 0.56 (0.0-1.3) x10^3/uL Absolute Nucleated RBC 0.00 (0.00-0.01) x10^3u/L Lymphocytes % 25.1 (24.0-44.0) % Monocytes % 5.0 (0.0-12.0) % Eosinophils % 3.5 (0.00-5.0) % Basophils % 0.6 (0.0-0.4) % Absolute Granulocytes 7.23 H (1.4-6.9) x10^3/uL Basophils # 0.07 (0-0.4) x10^3/uL Sodium 138 (137-145) mmol/L Potassium 4.7 (3.5-5.1) mmol/L Chloride 101 (98-107) mmol/L Carbon Dioxide 26 (22-30) mmol/L Anion Gap 15.6 H (5-15) MEQ/L BUN 24 H (7-17) mg/dL Creatinine 1.49 H (0.52-1.04) mg/dL Estimated GFR 34.4 ML/MIN Glucose 193 H (74-106) mg/dL POC Glucometer 173 H (74 to 106) mg/dL Calcium 10.3 H (8.4-10.2) mg/dL Magnesium 2.0 (1.6-2.3) mg/dL Total Bilirubin 0.60 (0.2-1.3) mg/dL AST 32 (14-36) U/L ALT 19 (0-35) U/L Alkaline Phosphatase 97 (38-126) U/L Ammonia (9-30) umol/L Troponin I (0.000-0.034) ng/mL NT-Pro-B Natriuret Pep (<300) pg/mL Serum Total Protein 8.2 (6.3-8.2) g/dL Albumin 4.7 (3.5-5.0) g/dL Urine Color (Yellow) Urine Appearance (Clear) Urine pH (4.6-8.0) Ur Specific [place] (1.005-1.030) Urine Protein (Negative) Urine Glucose (UA) (Negative) mg/dL Urine Ketones (Negative) Urine Blood (Negative) Urine Nitrite (Negative) Urine Bilirubin (Negative) Urine Urobilinogen (0.2) mg/dL Ur Leukocyte Esterase (Negative) U Hyaline Cast (Auto) (0-2) /LPF Urine Microscopic RBC (0-5) /HPF Urine Microscopic WBC (0-5) /HPF Ur Epithelial Cells (None Seen) /HPF Urine Bacteria (None Seen) /HPF Urine Culture Reflexed (NO) - Progress Progress: improved, re-examined Progress Note: 11/30/23 12:53 This patient's medical issue is 1 of moderate complexity. The level complexity and the workup performed is based on the review of the patient's past medical history, review of the patient's medication list, review of the patient's drug allergy list, history present illness and physical findings on examination. The workup in this patient includes placement of intravenous line, BNP, troponin level, twelve-lead EKG, CBC, CMP, magnesium level, CT scan of the head without contrast and urinalysis. 11/30/23 13:29 Patient refusing to lie flat for CT scan of the head. 11/30/23 15:46 I reviewed the patient's laboratory data results. I interpreted them as well. I do not see any acute or emergent laboratory data results. The ammonia level is just outside of normal range at 34. Normal high is 30. As stated above, the patient refused to lie flat for the CT scan of the head. Patient and her daughter both state that the patient is at her clinical baseline. Patient is neurologically intact. There is no additional concerns for any CVA or TIA's. Counseled pt/family regarding: lab results, diagnosis, need for follow-up, rad results Medical Desision Making - Independent Historian Additional History obtained from: Child - Diagnostic Testing Diagnostic test were ordered, analyzed, and reviewed by me: Yes - Risk of complications Low Risk: Low risk of morbidity from additional dx testing or treatment - Departure Departure Disposition: Home Clinical Impression: Weakness Condition: Stable Critical Care Time: No Referrals: TRINH MINAYA MD [Primary Care Provider] - Follow up/PCP as directed Additional Instructions: Drink plenty of fluids. Take your medication as prescribed. Follow-up with all your providers at your scheduled date and appointment time.
[2023-11-30 12:27] VITALS: TEMP 97
[2023-11-30 13:11] LABS: Absolute Neutrophil Ct (ANC) 7.23 x10^3/uL (1.4-6.9); BASOPHIL % 0.6 % (0.0-0.4); Basophil (Absolute #) 0.07 x10^3/uL (0-0.4); Eosinophil % 3.5 % (0.00-5.0); Eosinophil (Absolute #) 0.39 x10^3/uL (0-0.5); Hematocrit 37.9 % (35-47); Hemoglobin 12.2 g/dL (12.0-16.0); IMMATURE GRAN # 0.12 x10^3u/L (0.00-0.03); IMMATURE GRAN % 1.1 % (0.00-0.4); Lymphocytes % 25.1 % (24.0-44.0); Mean Cell Volume 97.7 fL (78-100); Mean Corpuscular Hemoglobin 31.4 pg (26-32); Mean Corpuscular Hgb Concent. 32.2 g/dL (32-36); Mean Platelet Volume 10.2 fL (7.5-11.0); Monocyte (Absolute #) 0.56 x10^3/uL (0.0-1.3); Neutrophil % 64.7 % (36.0-66.0); Platelet Count 203 x10^3/uL (150-450); Red Blood Count 3.88 x10^6/uL (4.1-5.4); Red Cell Distribution Width 15.6 % (11.5-14.0); White Blood Count 11.2 x10^3/uL (4.0-10.5)
[2023-11-30 13:26] LABS: ALBUMIN 4.7 g/dL (3.5-5.0); ANION GAP 15.6 MEQ/L (5-15); BILIRUBIN,TOTAL 0.6 mg/dL (0.2-1.3); Calcium 10.3 mg/dL (8.4-10.2); Creatinine 1 1.49 mg/dL (0.52-1.04); EST GLOMERULAR FILTRATION RATE 34.4 ML/MIN; Potassium 4.7 mmol/L (3.5-5.1); Total Protein 8.2 g/dL (6.3-8.2)
[2023-11-30 13:37] LABS: NT PRO BNPII 170 pg/mL (<300); TROPONIN < 0.012 ng/mL (0.000-0.034)
[2023-11-30 13:44] VITALS: PULSE 64
[2023-11-30 14:06] VITALS: RESP 15
[2023-11-30 14:54] LABS: Appearance Cloudy (Clear); Bacteria None Seen /HPF (None Seen); Bilirubin Negative (Negative); Blood Moderate (Negative); Epithelial Cells Rare /HPF (None Seen); Glucose, Urine Negative (Negative); Ketones Negative (Negative); Leukocyte Esterase Negative (Negative); Nitrite Negative (Negative); Ph 5.5 (4.6-8.0); Protein,Urine Dip >=1000 (Negative); RBC 0-2 /HPF (0-5); Urobilinogen 0.2 mg/dL (0.2); WBC 0-2 /HPF (0-5)
[2023-11-30 14:57] LABS: ADD URINE CULTURE? ORDERED SEPARATELY (NO); Hyaline Casts 0-2 /LPF (0-2)
[2023-11-30 16:43] VITALS: BP 160/88; O2SAT 95
== END 2023-11-30 17:02 | disposition home or self-care (01) ==
LOC: ED 12:06
DX: R53.1 Weakness (principal); R07.9 Chest pain, unspecified; E11.42 Type 2 diabetes mellitus with diabetic polyneuropathy; E11.22 Type 2 diabetes mellitus with diabetic chronic kidney disease; I12.9 Hypertensive chronic kidney disease with stage 1 through stage 4 chronic kidney disease, or unspecified chronic kidney disease; N18.9 Chronic kidney disease, unspecified; Z79.01 Long term (current) use of anticoagulants; Z79.84 Long term (current) use of oral hypoglycemic drugs; Z79.891 Long term (current) use of opiate analgesic; Z79.899 Other long term (current) drug therapy
CPT/HCPCS: 36000; 36415; 80053; 81001; 82140; 82947; 83735; 83880; 84484; 85025; 87040; 87086; 93005; 93041; 94760; 99284; P9612

== ENCOUNTER 2024-03-18 14:31 | Emergency (ER) | payer MEDICARE ==
--- NOTE | 2024-03-18 14:38 | ERPHSYRPT ---
- History of Present Illness Time Seen by Provider: 03/18/24 14:37 Source: patient, family, EMS, shelter records, old records Exam Limitations: no limitations Physician History: This is a morbidly obese white female patient who has multiple medical problems and was brought into the emergency department from home secondary to a blood sugar of 604 that was called to the patient's daughter at her home and was told to come to the emergency room department for treatment. Patient is asymptomatic. Additional history was obtained from the patient's daughter who is the primary caregiver of this patient as well as the paramedics. Patient does have a plush brusher, Dr. De and assembly line leader, Dr. Hummel. Her primary care provider is Dr. Minaya. Patient had labs drawn this morning including the urinalysis. The urinalysis was negative for ketones but had moderate leukocyte esterase and greater than 100 white blood cells per high-power field. I reviewed the outpatient labs that were drawn this morning. Patient's blood sugar on arrival to the emergency department was 452. Patient has a history of peripheral neuropathy, atrial fibrillation on Eliquis, hypertension, COPD, diabetes, hypothyroidism, chronic renal disease and degenerative disc disease. Patient denies shortness of breath. Patient denies chest pain. She has no abdominal pain. She has not had any vomiting or diarrhea symptoms. Patient's daughter stated that this patient lost a significant amount of weight and was subsequently taken off of all diabetic medications. Since that time the patient, per patient's daughter report, has put another 60 pounds back on. This may be accounting for her increase in her blood sugar. Timing/Duration: today Severity: mild Modifying Factors: Improves With: nothing Associated Symptoms: denies symptoms Allergies/Adverse Reactions: amoxicillin Allergy (Verified 11/30/23 12:46) levofloxacin [From Levaquin] Allergy (Verified 11/30/23 12:46) ofloxacin [From Floxin] Allergy (Verified 11/30/23 12:46) Sulfa (Sulfonamide Antibiotics) [Sulfa(Sulfonamide Antibiotics)] Allergy (Verified 11/30/23 12:46) Home Medications: Allopurinol 300 mg [Zyloprim 300 mg] 300 mg PO DAILY 11/30/16 [History] Levothyroxine Sodium [Synthroid] 250 mcg PO DAILY 11/30/16 [History] Acetaminophen/Diphenhydramine [Tylenol Pm Exstr 500-25Mg Cplt] 1 tab PO HS 09/18/21 [History] Diphenhydramine HCl [Benadryl Allergy] 50 mg PO BID 04/19/22 [History] Potassium Chloride 10 meq PO TID 04/19/22 [History] Fluticasone/Umeclidin/Vilanter [Trelegy Ellipta 100-62.5-25] 1 inh PO DAILY 07/15/23 [History] Brexpiprazole [Rexulti] 0.5 mg PO DAILY 09/10/23 [History] Hydrocodone/Acetaminophen [Hydrocodone-Acetamin 7.5-325] 1 tab PO Q6-8HPRN PRN 09/10/23 [History] Aspirin EC 81 mg [Ecotrin 81 mg] 1 tab PO DAILY 09/11/23 [History] levalbuterol HCl [Xopenex 1.25 MG/0.5 ML UD NEBULE] 1.25 mg IH DAILY PRN PRN 09/11/23 [History] Carvedilol [Coreg ] 1 ea DAILY 03/18/24 [History] HydrALAzine HCL 25 MG TAB [Apresoline 25 MG TABLET] 25 mg PO TID 03/18/24 [History] Isosorbide Mononitrate 30 mg [Imdur 30 MG] 30 mg PO DAILY 03/18/24 [History] Spironolactone 25 mg [Aldactone 25 MG] 25 mg PO DAILY 03/18/24 [History] Torsemide 20 mg [Demadex 20 mg] 20 mg PO BID 03/18/24 [History] Hx Tetanus, Diphtheria Vaccination/Date Given: Yes Hx Influenza Vaccination/Date Given: Yes Hx Pneumococcal Vaccination/Date Given: Yes Travel Risk - International Travel Have you traveled outside of the country in past 3 weeks: No - Emerging Infectious Disease Are you exhibiting symptoms associated with any current EIDs: No - Review of Systems Constitutional: No Symptoms Eyes: No Symptoms Ears, Nose, & Throat: No Symptoms Respiratory: No Symptoms Cardiac: No Symptoms Abdominal/Gastrointestinal: No Symptoms Genitourinary Symptoms: No Symptoms Musculoskeletal: No Symptoms Skin: No Symptoms Neurological: No Symptoms Psychological: No Symptoms Endocrine: No Symptoms Hematologic/Lymphatic: No Symptoms - Past Medical History Pertinent Past Medical History: Yes Neurological History: Peripheral Neuropathy ENT History: No Pertinent History Cardiac History: Arrhythmia, Hypertension Respiratory History: COPD Endocrine Medical History: Diabetes Type II, Hypothyroidism Musculoskeletal History: Arthritis, Degenerative Disk Disease, Osteoarthritis, Rheumatoid Arthritis GI Medical History: Diverticulitis, Diverticulosis, Hemorrhoids, Hernia, Other History: Renal Disease Psycho-Social History: No Pertinent History Female Reproductive Disorders: No Pertinent History Other Medical History: PE, ARRYTHMIA, RENAL DZ, , MYELODSYPLASTIC SYNDROME. PSH: CARDIAC CATH, HYSTERECTOMY, LUMPECTOMY, BASAL AND SQUAMOUS CELL CA. - Past Surgical History Past Surgical History: Yes Neuro Surgical History: No Pertinent History Cardiac: Cardiac Catheterization Respiratory: No Pertinent History Gastrointestinal: Other Genitourinary: No Pertinent History Musculoskeletal: No Pertinent History Female Surgical History: Hysterectomy, Lumpectomy Other Surgical History: breast tumor removed, tumor removed from back benign, 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, cauterization due to intestinal bleed, colon ruptured was septic and has colostomy Significant Family History: no pertinent family hx - Social History Smoking Status: Never smoker Exposure to second hand smoke: Yes Drug Use: none Patient Lives Alone: No - Nursing Vital Signs Nursing Vital Signs: Initial Vital Signs Temperature 97.2 F 03/18/24 14:59 Pulse Rate 90 03/18/24 14:59 Respiratory Rate 18 03/18/24 14:59 Blood Pressure 170/100 03/18/24 14:59 O2 Sat by Pulse Oximetry 96 03/18/24 14:59 Pain Scale Pain Intensity 2 - Physical Exam General Appearance: no apparent distress, alert, obese Eye Exam: PERRL/EOMI, eyes nml inspection Ears, Nose, Throat Exam: normal ENT inspection, moist mucous membranes Neck Exam: normal inspection, non-tender, supple, full range of motion Respiratory Exam: normal breath sounds, lungs clear, airway intact, No chest tenderness, No respiratory distress Cardiovascular Exam: regular rate/rhythm, normal heart sounds, normal peripheral pulses Gastrointestinal/Abdomen Exam: soft, normal bowel sounds, No tenderness Pelvic Exam: not done Rectal Exam: not done Back Exam: normal inspection, normal range of motion, No CVA tenderness, No vertebral tenderness Extremity Exam: normal inspection, normal range of motion, pelvis stable Neurologic Exam: alert, oriented x 3, cooperative, spray blender II-XII nml as tested, normal mood/affect, sensation nml Skin Exam: normal color, warm, dry Lymphatic Exam: No adenopathy SpO2 Interpretation: normal O2 Delivery: Room Air Ordered Tests: Active Orders 24 hr Category Date Time Status BMP Stat Lab 03/18/24 15:28 Completed POCT GLUCOSE Stat Lab 03/18/24 17:15 Completed POCT GLUCOSE Stat Lab 03/18/24 17:15 Received Medication Summary Discontinued Medications Generic Name Dose Route Start Last Admin Trade Name Freq PRN Reason Stop Dose Admin Ceftriaxone Sodium 1 gm in 100 mls @ 200 mls/hr 03/18/24 15:13 03/18/24 16:32 Rocephin 1 Gm / 100 Ml Nacl IV 03/18/24 15:42 Infused STAT ONE Infusion Sodium Chloride 500 mls @ 500 mls/hr 03/18/24 15:13 03/18/24 16:32 Sodium Chloride 0.9% 500 Ml IV 03/18/24 16:12 Infused .Q1H ONE Infusion Ceftriaxone Sodium Confirm 03/18/24 15:22 Rocephin 1 Gm / 100 Ml Nacl Administered 03/18/24 15:23 Dose 1 gm in 100 mls @ ud IV .STK-MED ONE Sodium Chloride Confirm 03/18/24 15:23 Sodium Chloride 0.9% 500 Ml Administered 03/18/24 15:24 Dose 500 mls @ ud IV .STK-MED ONE Insulin Human Regular 18 unit 03/18/24 16:01 03/18/24 16:25 Insulin Regular, Human 1 Unit IV 03/18/24 16:02 18 unit STAT ONE Administration Insulin Human Regular Confirm 03/18/24 16:23 Insulin Regular, Human 1 Unit Administered 03/18/24 16:24 Dose 18 unit .ROUTE .STK-MED ONE Lab/Rad Data: Laboratory Result Diagrams 03/18/24 15:28 Laboratory Results 03/18/24 03/18/24 Range/Units 17:15 15:28 Sodium 131 L (135-145) mmol/L Potassium 5.0 (3.5-5.1) mmol/L Chloride 94 L (98-107) mmol/L Carbon Dioxide 28 (22-30) mmol/L Anion Gap 14.8 (5-15) MEQ/L BUN 40 H (7-17) mg/dL Creatinine 1.61 H (0.52-1.04) mg/dL Estimated GFR 31.4 ML/MIN Glucose 507 H* (74-106) mg/dL POC Glucometer 285 H (74 to 106) mg/dL Calcium 10.2 (8.4-10.2) mg/dL - Progress Progress Note: 03/18/24 15:29 My medical decision making and the assignment of low to moderate complexity of this patient's medical issue today is based on review of the patient's past medical history, review of the patient's outpatient laboratory data results that were drawn this morning, review of the patient's medication list, review the patient drug allergy list, history present illness and physical findings on examination. The workup in this patient includes a BMP, infusion of 1/2 L of normal saline solution and, since she has a significant urinary tract infection, 1 g of Rocephin intravenously will be infused. Differential diagnosis includes infectious process, likely urinary tract infection, hyperglycemia secondary to significant weight gain as well as noncompliance with diet and the urinary tract infection that is present. Counseled pt/family regarding: lab results, diagnosis, need for follow-up Medical Desision Making - Independent Historian Additional History obtained from: Family - Diagnostic Testing Diagnostic test were ordered, analyzed, and reviewed by me: Yes - Risk of complications The pt has a mod risk of morbidity or mortality based on: Need for prescription drug management - Departure Departure Disposition: Home Clinical Impression: Hyperglycemia, Urinary tract infection Condition: Stable Critical Care Time: No Referrals: TRINH MINAYA MD [Primary Care Provider] - Follow up/PCP as directed Additional Instructions: Drink plenty of fluids. Follow a diabetic diet as you were before, take your medications as prescribed, monitor your blood sugar morning noon and night for the next 48 hours and present this log to Dr. De, your plush brusher at your appointment you have with him on 03/21/2024. Prescriptions: Cefdinir 300 mg PO BID #14 cap
[2024-03-18 15:00] VITALS: TEMP 97.2
[2024-03-18] MEDS ORDERED: ROCEPHIN 1 GM / 100 ML NaCl 1 GM/100 ML IVPB IV ONE (15:22)
[2024-03-18] MEDS ORDERED: Sodium Chloride 0.9% 500 ML 500 ML IV ONE (15:23)
[2024-03-18] MEDS: Sodium Chloride 0.9% 500 ML 500 ML IV ONE (15:25)
[2024-03-18] MEDS: ROCEPHIN 1 GM / 100 ML NaCl 1 GM/100 ML IVPB IV ONE (15:28)
[2024-03-18 15:46] LABS: ANION GAP 14.8 MEQ/L (5-15); Calcium 10.2 mg/dL (8.4-10.2); Creatinine 1 1.61 mg/dL (0.52-1.04); EST GLOMERULAR FILTRATION RATE 31.4 ML/MIN
[2024-03-18] MEDS ORDERED: HUMULIN R ONE (16:23)
[2024-03-18] MEDS: HUMULIN R IV ONE (16:25)
[2024-03-18 18:56] VITALS: BP 164/72; PULSE 70; RESP 16; O2SAT 96
== END 2024-03-18 17:44 | disposition home or self-care (01) ==
LOC: ED 14:31
DX: E11.65 Type 2 diabetes mellitus with hyperglycemia (principal); N39.0 Urinary tract infection, site not specified; E11.42 Type 2 diabetes mellitus with diabetic polyneuropathy; E11.22 Type 2 diabetes mellitus with diabetic chronic kidney disease; I12.9 Hypertensive chronic kidney disease with stage 1 through stage 4 chronic kidney disease, or unspecified chronic kidney disease; N18.9 Chronic kidney disease, unspecified; Z79.01 Long term (current) use of anticoagulants; Z79.899 Other long term (current) drug therapy
CPT/HCPCS: 36415; 80048; 82947; 96360; 96365; 96374; 99284; J0696; J1815

== ENCOUNTER 2024-04-17 11:20 | Observation (INO) | payer MEDICARE ==
--- NOTE | 2024-04-17 11:28 | ERPHSYRPT ---
- History of Present Illness Time Seen by Provider: 04/17/24 11:28 Source: patient, family, EMS Exam Limitations: clinical condition Physician History: pt is NH patient with Hx of falling yesterday brought in by EMS today for confusion. Pt has healing buttock ulcers and right LE ulcer redressed in ER. Normal nonfocal neuro exam except for the confusion. No wounds on head but some neck tenderness no wounds from fall noted. urine appears cloudy. CHest clear, nontender with few rales. Abd soft nontender without peritoneal signs or masses. EMS is additional independent Hx source in ER. Discussed risks/benefits testing/Tx with pt and available family including , CBC, CMP, Mg, CT head and c spine, CXR, EKG, Trop BNP, Lactate, Thyroid, UA, Covid panel and they wish to proceed so these are ordered. Results discussed with pt and family. Timing/Duration: today Severity: moderate Character of Deficits: other (new confusion more that usual) Deficits: decrease ability to walk, weak Baseline/Normal Cognition: alert oriented x 3 Current Cognition: alert but confused Baseline Gait: unable to walk Associated Symptoms: confusion, fatigue Allergies/Adverse Reactions: amoxicillin Allergy (Verified 03/30/24 16:02) levofloxacin [From Levaquin] Allergy (Verified 03/30/24 16:02) ofloxacin [From Floxin] Allergy (Verified 03/30/24 16:02) Sulfa (Sulfonamide Antibiotics) [Sulfa(Sulfonamide Antibiotics)] Allergy (Verified 03/30/24 16:02) adhesive tape Adverse Reaction (Verified 03/30/24 21:58) Home Medications: Allopurinol 300 mg [Zyloprim 300 mg] 300 mg PO DAILY 11/30/16 [History] Carvedilol [Coreg ] 6.25 mg PO BID 03/18/24 [History] HydrALAzine HCL 25 MG TAB [Apresoline 25 MG TABLET] 25 mg PO TID 03/18/24 [History] Isosorbide Mononitrate 30 mg [Imdur 30 MG] 30 mg PO DAILY 03/18/24 [History] Spironolactone 25 mg [Aldactone 25 MG] 25 mg PO DAILY 03/18/24 [History] Torsemide 20 mg [Demadex 20 mg] 20 mg PO BID 03/18/24 [History] Amlodipine Besylate [Norvasc] 2.5 mg PO DAILY 03/30/24 [History] Brexpiprazole [Rexulti] 2 mg PO DAILY 03/30/24 [History] Ergocalciferol (Vitamin D2) [Vitamin D2] 50 mcg PO DAILY 03/30/24 [History] Glimepiride 2 mg [Amaryl 2 MG] 2 mg PO DAILY 03/30/24 [History] Hydrocodone/Acetaminophen [Hydrocodone-Acetamin 7.5-325] 1 each PO Q6H PRN 03/30/24 [History] Olmesartan Medoxomil [Benicar] 10 mg PO DAILY 03/30/24 [History] Omeprazole 20 mg PO DAILY PRN 03/30/24 [History] Ondansetron [Ondansetron Odt ] 4 mg PO Q8H PRN PRN 03/30/24 [History] Fluticasone/Umeclidin/Vilanter [Trelegy Ellipta 100-62.5-25] 1 puff DAILY 04/17/24 [History] Levothyroxine Sodium 100 Mcg [Synthroid 100 Mcg] 200 mcg PO DAILY 04/17/24 [History] Saccharomyces Boulardii [Probiotic] 1 ea DAILY 04/17/24 [History] Hx Tetanus, Diphtheria Vaccination/Date Given: Yes Hx Influenza Vaccination/Date Given: Yes Hx Pneumococcal Vaccination/Date Given: Yes Travel Risk - Emerging Infectious Disease Are you exhibiting symptoms associated with any current EIDs: No - Review of Systems Constitutional: No Fever, No Chills Eyes: No Symptoms Ears, Nose, & Throat: No Symptoms Respiratory: No Cough, No Dyspnea Cardiac: No Chest Pain, No Edema, No Syncope Abdominal/Gastrointestinal: No Abdominal Pain, No Nausea, No Vomiting, No Diarrhea Genitourinary Symptoms: No Dysuria Musculoskeletal: Neck Pain, Fall, No Back Pain Skin: Decubiti, No Rash Neurological: No Dizziness, No Focal Weakness, No Sensory Changes Psychological: No Symptoms Endocrine: No Symptoms Hematologic/Lymphatic: No Symptoms Immunological/Allergic: No Symptoms All Other Systems: Reviewed and Negative - Past Medical History Pertinent Past Medical History: Yes Neurological History: Dementia, Peripheral Neuropathy ENT History: Cataracts Cardiac History: Arrhythmia, Hypertension Respiratory History: COPD Endocrine Medical History: Diabetes Type II, Hypothyroidism Musculoskeletal History: Arthritis, Degenerative Disk Disease, Osteoarthritis, Rheumatoid Arthritis GI Medical History: Diverticulitis, Diverticulosis, Hemorrhoids, Hernia, Other History: Renal Disease Psycho-Social History: No Pertinent History Female Reproductive Disorders: No Pertinent History Other Medical History: PE, ARRYTHMIA, MYELODSYPLASTIC SYNDROME. PSH: CARDIAC CATH, HYSTERECTOMY, LUMPECTOMY, BASAL AND SQUAMOUS CELL CA. Stage 4 CKD, afib - Past Surgical History Past Surgical History: Yes Neuro Surgical History: No Pertinent History Cardiac: Cardiac Catheterization Respiratory: No Pertinent History Gastrointestinal: Other Genitourinary: No Pertinent History Musculoskeletal: No Pertinent History Female Surgical History: Hysterectomy, Lumpectomy Other Surgical History: breast tumor removed, tumor removed from back benign, 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, cauterization due to in testinal bleed, colon ruptured was septic and has colostomy Significant Family History: no pertinent family hx - Social History Smoking Status: Never smoker Exposure to second hand smoke: Yes Drug Use: none Patient Lives Alone: No - Social Determinants of Health Will the patient participate in the screening: Unable to obtain Do you worry about a steady place to live?: No In the past 12 months,have you had to go without utilities?: No Transportation Issues: No Has anyone in your support network made you feel unsafe?: No Have you or anyone in your house had to go without enough: No - Nursing Vital Signs Nursing Vital Signs: Initial Vital Signs Temperature 97.2 F 04/17/24 11:37 Pulse Rate 96 H 04/17/24 11:37 Respiratory Rate 18 04/17/24 11:37 O2 Sat by Pulse Oximetry 95 04/17/24 11:37 Pain Scale Pain Intensity 0 - [place] Coma Scale Best Eye Response (Rohini): (3) open to voice Best Verbal Response (Exira): (4) confused conversation Best Motor Response (Rohini): (6) obeys commands Exira Total: 13 - Physical Exam General Appearance: no apparent distress, alert Eye Exam: bilateral eye: PERRL, EOMI Ears, Nose, Throat Exam: normal ENT inspection, pharynx normal, moist mucous membranes Neck Exam: normal inspection, non-tender, supple Respiratory: normal breath sounds, lungs clear, airway intact, No respiratory distress Cardiovascular: regular rate/rhythm, No edema Gastrointestinal: soft, No tenderness, No distention Pelvic Exam: deferred Rectal Exam: deferred Back Exam: normal inspection Extremity Exam: normal inspection, No pedal edema Peripheral Pulses: carotid (R): 2+, carotid (L): 2+, femoral (R): 2+, femoral (L): 2+, dorsalis-pedis (R): 2+, dorsalis-pedis (L): 2+ Mental Status: alert, cooperative, disoriented to place, disoriented to time lan specialist Exam: PERRL, tongue midline, No facial asymmetry, No facial droop Coordination/Gait: normal finger to nose Motor/Sensory: no motor deficit, no sensory deficit, no pronator drift DTR: bicep (R): 2+, bicep (L): 2+, tricep (R): 2+, tricep (L): 2+, knee (R): 2+, knee (L): 2+, ankle (R): 2+, ankle (L): 2+ Skin Exam: normal color, warm, dry, No rash SpO2 Interpretation: normal SpO2: 95 O2 Delivery: Room Air - Course Nursing assessment & vital signs reviewed: Yes EKG Interpreted by Me: Sinus Rhythm, Left Framingham Deviation, Non-specific ST Changes, Other (IVCD) - Radiology Exams Chest X-ray Interpretation: Interpreted by me, Reviewed by me, Infiltrates, Other (calc aorta) - CT Exams Head CT Interpretation: Tele-radiologist Report, No/Intracranial Hemorrhag Cervical Spine CT Interpretation: No Fracture, Other (DJD) Ordered Tests: Active Orders 24 hr Category Date Time Status EKG-ER Only STAT Care 04/17/24 11:39 Active IV Insertion STAT Care 04/17/24 11:39 Active Pulse Oximetry (ED) STAT Care 04/17/24 11:39 Active CERVICAL SPINE WO CONTRAST [CT] Stat Exams 04/17/24 12:36 Completed CHEST 1 VIEW (PORTABLE) Stat Exams 04/17/24 12:36 Taken HEAD WITHOUT CONTRAST [CT] Stat Exams 04/17/24 12:36 Completed VENOUS BILATERAL EXTREMITY [US] Stat Exams 04/17/24 16:49 Ordered CBC W DIFF Stat Lab 04/17/24 12:03 Completed CMP Stat Lab 04/17/24 12:03 Completed CULTURE,URINE Stat Lab 04/17/24 11:52 Received D-DIMER QUANTITATIVE Stat Lab 04/17/24 12:03 Completed Lactic Acid Stat Lab 04/17/24 11:39 Completed MAGNESIUM Stat Lab 04/17/24 12:03 Completed NT PRO BNPII Stat Lab 04/17/24 12:03 Completed TROPONIN Q4H Lab 04/17/24 12:03 Completed TROPONIN Q4H Lab 04/17/24 15:00 Completed TROPONIN Q4H Lab 04/17/24 19:45 Ordered TSH, 3RD Generation Stat Lab 04/17/24 12:03 Completed UA W/RFX UR CULTURE Stat Lab 04/17/24 11:52 Completed Medication Summary Generic Name Dose Route Start Last Admin Trade Name Freq PRN Reason Stop Dose Admin Sodium Chloride 1,000 mls @ 50 mls/hr 04/17/24 11:45 04/17/24 11:55 Sodium Chloride 0.9% 1000 Ml IV 05/17/24 11:44 50 mls/hr .Q20H NKECHI Administration Discontinued Medications Generic Name Dose Route Start Last Admin Trade Name Freq PRN Reason Stop Dose Admin Ceftriaxone Sodium 1 gm in 100 mls @ 200 mls/hr 04/17/24 12:59 04/17/24 14:25 Rocephin 1 Gm / 100 Ml Nacl IV 04/17/24 13:28 Infused STAT ONE Infusion Ceftriaxone Sodium Confirm 04/17/24 13:02 Rocephin 1 Gm / 100 Ml Nacl Administered 04/17/24 13:03 Dose 1 gm in 100 mls @ ud IV .K-MED ONE Lab/Rad Data: Laboratory Result Diagrams 04/17/24 12:03 04/17/24 12:03 Laboratory Results 04/17/24 04/17/24 04/17/24 Range/Units 15:00 12:30 12:03 WBC (3.98-10.04) x10^3/uL RBC (3.93-5.22) x10^6/uL Hgb (11.2-15.7) g/dL Hct (34.1-44.9) % MCV (79.4-94.8) fL MCH (25.6-32.2) pg MCHC (32.2-35.5) g/dL RDW (11.7-14.4) % Plt Count (182-369) x10^3/uL MPV (9.4-12.3) fL Gran % (34.0-71.1) % Immature Gran % (Auto) (0.001-0.429) % Nucleat RBC Rel Count (0.00-0.2) % Eos # (Auto) (0.04-0.36) x10^3/uL Immature Gran # (Auto) (0.001-0.031) x10^3u/L Absolute Lymphs (auto) (1.18-3.74) x10^3/uL Absolute Monos (auto) (0.24-0.86) x10^3/uL Absolute Nucleated RBC (0.00-0.012) x10^3u/L Lymphocytes % (19.3-51.7) % Monocytes % (4.7-12.5) % Eosinophils % (0.7-5.8) % Basophils % (0.1-1.2) % Absolute Granulocytes (1.56-6.13) x10^3/uL Basophils # (0.01-0.08) x10^3/uL D-Dimer (0.0-0.50) mg/L Sodium (135-145) mmol/L Potassium (3.5-5.1) mmol/L Chloride (98-107) mmol/L Carbon Dioxide (22-30) mmol/L Anion Gap (5-15) MEQ/L BUN (7-17) mg/dL Creatinine (0.52-1.04) mg/dL Estimated GFR ML/MIN Glucose (74-106) mg/dL Lactic Acid (0.4-2.0) Calcium (8.4-10.2) mg/dL Magnesium (1.6-2.3) mg/dL Total Bilirubin (0.2-1.3) mg/dL AST (14-36) U/L ALT (0-35) U/L Alkaline Phosphatase (38-126) U/L Troponin I < 0.012 (0.000-0.033) ng/mL NT-Pro-B Natriuret Pep (<300) pg/mL Serum Total Protein (6.3-8.2) g/dL Albumin (3.5-5.0) g/dL Free T4 2.72 H (0.78-2.19) ng/dL TSH 3rd Generation (0.470-4.680) mIU/L Urine Color (Yellow) Urine Appearance (Clear) Urine pH (4.6-8.0) Ur Specific [place] (1.005-1.030) Urine Protein (Negative) Urine Glucose (UA) (Negative) mg/dL Urine Ketones (Negative) Urine Blood (Negative) Urine Nitrite (Negative) Urine Bilirubin (Negative) Urine Urobilinogen (0.2) mg/dL Ur Leukocyte Esterase (Negative) U Hyaline Cast (Auto) (0-2) /LPF Urine Microscopic RBC (0-5) /HPF Urine Microscopic WBC (0-5) /HPF Ur Epithelial Cells (None Seen) /HPF Urine Bacteria (None Seen) /HPF Urine Culture Reflexed (NO) Influenza Type A Ag NEGATIVE (NEGATIVE) Influenza Type B Ag NEGATIVE (NEGATIVE) RSV (PCR) NEGATIVE (NEGATIVE) SARS-CoV-2 (PCR) NEGATIVE (NEGATIVE) 04/17/24 04/17/24 04/17/24 Range/Units 12:03 12:03 12:03 WBC (3.98-10.04) x10^3/uL RBC (3.93-5.22) x10^6/uL Hgb (11.2-15.7) g/dL Hct (34.1-44.9) % MCV (79.4-94.8) fL MCH (25.6-32.2) pg MCHC (32.2-35.5) g/dL RDW (11.7-14.4) % Plt Count (182-369) x10^3/uL MPV (9.4-12.3) fL Gran % (34.0-71.1) % Immature Gran % (Auto) (0.001-0.429) % Nucleat RBC Rel Count (0.00-0.2) % Eos # (Auto) (0.04-0.36) x10^3/uL Immature Gran # (Auto) (0.001-0.031) x10^3u/L Absolute Lymphs (auto) (1.18-3.74) x10^3/uL Absolute Monos (auto) (0.24-0.86) x10^3/uL Absolute Nucleated RBC (0.00-0.012) x10^3u/L Lymphocytes % (19.3-51.7) % Monocytes % (4.7-12.5) % Eosinophils % (0.7-5.8) % Basophils % (0.1-1.2) % Absolute Granulocytes (1.56-6.13) x10^3/uL Basophils # (0.01-0.08) x10^3/uL D-Dimer 2.18 H* (0.0-0.50) mg/L Sodium 132 L (135-145) mmol/L Potassium 4.3 (3.5-5.1) mmol/L Chloride 98 (98-107) mmol/L Carbon Dioxide 27 (22-30) mmol/L Anion Gap 10.7 (5-15) MEQ/L BUN 38 H (7-17) mg/dL Creatinine 1.81 H (0.52-1.04) mg/dL Estimated GFR 27.3 ML/MIN Glucose 154 H (74-106) mg/dL Lactic Acid (0.4-2.0) Calcium 10.3 H (8.4-10.2) mg/dL Magnesium 1.7 (1.6-2.3) mg/dL Total Bilirubin 0.60 (0.2-1.3) mg/dL AST 25 (14-36) U/L ALT 13 (0-35) U/L Alkaline Phosphatase 92 (38-126) U/L Troponin I < 0.012 (0.000-0.033) ng/mL NT-Pro-B Natriuret Pep 936 (<300) pg/mL Serum Total Protein 7.2 (6.3-8.2) g/dL Albumin 3.8 (3.5-5.0) g/dL Free T4 (0.78-2.19) ng/dL TSH 3rd Generation 3.709 (0.470-4.680) mIU/L Urine Color (Yellow) Urine Appearance (Clear) Urine pH (4.6-8.0) Ur Specific [place] (1.005-1.030) Urine Protein (Negative) Urine Glucose (UA) (Negative) mg/dL Urine Ketones (Negative) Urine Blood (Negative) Urine Nitrite (Negative) Urine Bilirubin (Negative) Urine Urobilinogen (0.2) mg/dL Ur Leukocyte Esterase (Negative) U Hyaline Cast (Auto) (0-2) /LPF Urine Microscopic RBC (0-5) /HPF Urine Microscopic WBC (0-5) /HPF Ur Epithelial Cells (None Seen) /HPF Urine Bacteria (None Seen) /HPF Urine Culture Reflexed (NO) Influenza Type A Ag (NEGATIVE) Influenza Type B Ag (NEGATIVE) RSV (PCR) (NEGATIVE) SARS-CoV-2 (PCR) (NEGATIVE) 04/17/24 04/17/24 04/17/24 Range/Units 12:03 11:52 11:39 WBC 11.8 H (3.98-10.04) x10^3/uL RBC 3.42 L (3.93-5.22) x10^6/uL Hgb 9.9 L (11.2-15.7) g/dL Hct 30.2 L (34.1-44.9) % MCV 88.3 (79.4-94.8) fL MCH 28.9 (25.6-32.2) pg MCHC 32.8 (32.2-35.5) g/dL RDW 15.7 H (11.7-14.4) % Plt Count 308 (182-369) x10^3/uL MPV 8.6 L (9.4-12.3) fL Gran % 76.0 H (34.0-71.1) % Immature Gran % (Auto) 0.8 H (0.001-0.429) % Nucleat RBC Rel Count 0.0 (0.00-0.2) % Eos # (Auto) 0.24 (0.04-0.36) x10^3/uL Immature Gran # (Auto) 0.09 H (0.001-0.031) x10^3u/L Absolute Lymphs (auto) 1.68 (1.18-3.74) x10^3/uL Absolute Monos (auto) 0.75 (0.24-0.86) x10^3/uL Absolute Nucleated RBC 0.00 (0.00-0.012) x10^3u/L Lymphocytes % 14.2 L (19.3-51.7) % Monocytes % 6.3 (4.7-12.5) % Eosinophils % 2.0 (0.7-5.8) % Basophils % 0.7 (0.1-1.2) % Absolute Granulocytes 9.00 H (1.56-6.13) x10^3/uL Basophils # 0.08 (0.01-0.08) x10^3/uL D-Dimer (0.0-0.50) mg/L Sodium (135-145) mmol/L Potassium (3.5-5.1) mmol/L Chloride (98-107) mmol/L Carbon Dioxide (22-30) mmol/L Anion Gap (5-15) MEQ/L BUN (7-17) mg/dL Creatinine (0.52-1.04) mg/dL Estimated GFR ML/MIN Glucose (74-106) mg/dL Lactic Acid 0.9 (0.4-2.0) Calcium (8.4-10.2) mg/dL Magnesium (1.6-2.3) mg/dL Total Bilirubin (0.2-1.3) mg/dL AST (14-36) U/L ALT (0-35) U/L Alkaline Phosphatase (38-126) U/L Troponin I (0.000-0.033) ng/mL NT-Pro-B Natriuret Pep (<300) pg/mL Serum Total Protein (6.3-8.2) g/dL Albumin (3.5-5.0) g/dL Free T4 (0.78-2.19) ng/dL TSH 3rd Generation (0.470-4.680) mIU/L Urine Color Yellow (Yellow) Urine Appearance Turbid A (Clear) Urine pH 5.5 (4.6-8.0) Ur Specific [place] 1.010 (1.005-1.030) Urine Protein 30 (Negative) Urine Glucose (UA) Negative (Negative) mg/dL Urine Ketones Negative (Negative) Urine Blood Trace (Negative) Urine Nitrite Negative (Negative) Urine Bilirubin Negative (Negative) Urine Urobilinogen 0.2 (0.2) mg/dL Ur Leukocyte Esterase Large A (Negative) U Hyaline Cast (Auto) NONE SEEN (0-2) /LPF Urine Microscopic RBC 0-2 (0-5) /HPF Urine Microscopic WBC >100 A (0-5) /HPF Ur Epithelial Cells Rare (None Seen) /HPF Urine Bacteria Many A (None Seen) /HPF Urine Culture Reflexed ORDERED SEPARATELY (NO) Influenza Type A Ag (NEGATIVE) Influenza Type B Ag (NEGATIVE) RSV (PCR) (NEGATIVE) SARS-CoV-2 (PCR) (NEGATIVE) - Progress Progress: improved, re-examined Progress Note: 04/17/24 16:[address] vieira in consultation hospitalist for admission and he accepts and would also like to have bilat venous dopplers to rule out DVT. Discussed with DrInes: Other ([facility] ) Will see patient in: hospital (observation) Counseled pt/family regarding: lab results, diagnosis, need for follow-up, rad results - Departure Departure Disposition: Observation Clinical Impression: UTI with increased confusion Condition: Good Critical Care Time: No Referrals: ENVIVE,ENVIVE [Primary Care Provider] - Follow up/PCP as directed
[2024-04-17] MEDS ORDERED: Sodium Chloride 0.9% 1000 ML 1,000 ML ONE (11:53)
[2024-04-17] MEDS: Sodium Chloride 0.9% 1000 ML 1,000 ML IV SCH (11:55)
[2024-04-17 12:08] LABS: BASOPHIL % 0.7 % (0.1-1.2); Basophil (Absolute #) 0.08 x10^3/uL (0.01-0.08); Eosinophil (Absolute #) 0.24 x10^3/uL (0.04-0.36); Hematocrit 30.2 % (34.1-44.9); Hemoglobin 9.9 g/dL (11.2-15.7); IMMATURE GRAN # 0.09 x10^3u/L (0.001-0.031); IMMATURE GRAN % 0.8 % (0.001-0.429); Lymphocyte (Absolute #) 1.68 x10^3/uL (1.18-3.74); Lymphocytes % 14.2 % (19.3-51.7); Mean Cell Volume 88.3 fL (79.4-94.8); Mean Corpuscular Hemoglobin 28.9 pg (25.6-32.2); Mean Corpuscular Hgb Concent. 32.8 g/dL (32.2-35.5); Mean Platelet Volume 8.6 fL (9.4-12.3); Monocyte (Absolute #) 0.75 x10^3/uL (0.24-0.86); Monocytes % 6.3 % (4.7-12.5); Platelet Count 308 x10^3/uL (182-369); Red Blood Count 3.42 x10^6/uL (3.93-5.22); Red Cell Distribution Width 15.7 % (11.7-14.4); White Blood Count 11.8 x10^3/uL (3.98-10.04)
[2024-04-17 12:09] LABS: Appearance Turbid (Clear); Bacteria Many /HPF (None Seen); Bilirubin Negative (Negative); Blood Trace (Negative); Epithelial Cells Rare /HPF (None Seen); Glucose, Urine Negative (Negative); Hyaline Casts NONE SEEN /LPF (0-2); Ketones Negative (Negative); Leukocyte Esterase Large (Negative); Nitrite Negative (Negative); Ph 5.5 (4.6-8.0); Protein,Urine Dip 30 (Negative); RBC 0-2 /HPF (0-5); Urobilinogen 0.2 mg/dL (0.2); WBC >100 /HPF (0-5)
[2024-04-17 12:10] LABS: ADD URINE CULTURE? ORDERED SEPARATELY (NO)
[2024-04-17 12:50] LABS: TROPONIN < 0.012 ng/mL (0.000-0.033)
[2024-04-17 12:55] LABS: ALBUMIN 3.8 g/dL (3.5-5.0); ANION GAP 10.7 MEQ/L (5-15); BILIRUBIN,TOTAL 0.6 mg/dL (0.2-1.3); Calcium 10.3 mg/dL (8.4-10.2); Creatinine 1 1.81 mg/dL (0.52-1.04); EST GLOMERULAR FILTRATION RATE 27.3 ML/MIN; MAGNESIUM 1.7 mg/dL (1.6-2.3); Potassium 4.3 mmol/L (3.5-5.1); TSH, 3RD Generation 3.709 mIU/L (0.470-4.680); Total Protein 7.2 g/dL (6.3-8.2)
[2024-04-17] MEDS ORDERED: ROCEPHIN 1 GM / 100 ML NaCl 1 GM/100 ML IVPB IV ONE (13:02)
[2024-04-17] MEDS: ROCEPHIN 1 GM / 100 ML NaCl 1 GM/100 ML IVPB IV ONE (13:03)
[2024-04-17 13:23] LABS: INFLUENZA A NEGATIVE (NEGATIVE); INFLUENZA B NEGATIVE (NEGATIVE); RESPIRATORY SYNCTIAL VIRUS NEGATIVE (NEGATIVE); SARS-CoV-2 Xpert Express NEGATIVE (NEGATIVE)
--- NOTE | 2024-04-17 13:26 | XRAY ---
CLINICAL HISTORY: confused after a fall in [place] COMPARISON: 03/30/2024 TECHNIQUE: Axial non-contrast CT scan of the brain was performed from the skull base to the high parietal region with multiple reformats One of the following dose reduction techniques were utilized for this exam: Automated exposure control, adjustment of the mA and/or kV according to patient size, use of iterative reconstruction FINDINGS: No intracerebral or extra axial hematoma. No definite calvarium fractures. Age-appropriate brain involutional changes are seen as evident by prominent [id number] CSF spaces. Diffuse white matter hypoattenuation seen representing chronic microvascular ischemic changes. The visualized brain parenchyma shows normal appearance. No focal parenchymal abnormalities are demonstrated. Nguyen-white matter differentiation is maintained. No midline shifts or deformity. Normal CT appearance of the posterior fossa structures namely the cerebellar hemispheres, brainstem and cerebellar peduncles. Scanned paranasal sinuses are clear. Opacification of the right mastoid air cells (stable). IMPRESSION: 1. No intracerebral or extra axial hematoma. 2. No definite calvarium fractures. 3. Age-appropriate brain involutional changes andchronic microvascular ischemic changes. 4. No significant interval changes. Electronically Signed by: Mauricio Christopher MD. (04/17/2024 13:23:16 EDT)
--- NOTE | 2024-04-17 13:35 | XRAY ---
CLINICAL HISTORY: fell in [place] with tenderness COMPARISON: None. TECHNIQUE: Thin axial CT of the cervical spine was performed with sagittal and coronal reconstructions without contrast. One of the following dose reduction techniques were utilized for this exam: Automated exposure control, adjustment of the mA and/or kV according to patient size, use of iterative reconstruction FINDINGS: No evidence of acute fracture or subluxation/dislocation seen. Generalized reduced bone density seen. Moderate degenerative changes are seen as evident by osteophytosis and reduced intervertebral disc spaces. Multilevel diffuse disc bulges seen causing ventral thecal sac indentation, bilateral neural foraminal narrowing and varying degrees of spinal canal stenosis. Loss of normal Cervical lordosis with scoliosis convex to the right side. The vertebral bodies are normal in height. Multilevel bilateral facet and uncovertebral joints arthropathy. Degenerative changes at the atlantoaxial articulation. Visualized lung apices appear unremarkable. Medial looping of the internal carotid arteries (retropharyngeal dangerous course). IMPRESSION: 1. No acute bony injury/abnormality was seen. 2. Osteopenia. Moderate cervical Spondylosis. 3. Multilevel diffuse disc bulges seen causing ventral thecal sac indentation, bilateral neural foraminal narrowing, and varying degrees of spinal canal stenosis. MRI of the cervical spine is advised if clinically indicated. Electronically Signed by: Mauricio Christopher MD. (04/17/2024 13:30:21 EDT)
[2024-04-17 13:51] LABS: NT PRO BNPII 936 pg/mL (<300)
--- NOTE | 2024-04-17 19:28 | XRAY ---
Indication: Confusion. Status post fall. Comparison: April 01, 2024 Portable chest unchanged again with minimal right base subsegmental atelectasis/scarring and tiny right lung calcified granuloma. Heart remains enlarged again with CT proven prominent epicardiac fat. Bony thorax intact again with osteopenia, degenerative changes, and T12 kyphoplasty. No new abnormalities.
[2024-04-17] MEDS ORDERED: BACIGUENT PACKET ONE (19:37)
--- NOTE | 2024-04-17 19:39 | XRAY ---
Indication: Leg swelling. Elevated d-dimer. Two-dimensional sonogram and color Doppler imaging major venous vessels left and right leg performed. Comparison: September 11, 2023 Manager Of Software [employer] notes limited exam due to patient body habitus and patient confusion. No echogenic thrombus seen in the examined deep venous vessels left and right leg including greater saphenous vein. Left and right mid to proximal femoral and also greater saphenous veins are not compressible possibly due to patient body habitus. Venous waveforms are normal with and without augmentation. Impression: Noncompressibility left and right femoral and greater saphenous veins. This could be due to patient body habitus. Cannot completely exclude indirect finding for DVT. Comment: Preliminary report was given.
[2024-04-17 20:07] LABS: INR 0.96 (0.8-3.0); PROTIME 10.5 SECONDS (9.4-12.5)
[2024-04-17] MEDS ORDERED: TYLENOL 325 MG PO PRN (21:14)
[2024-04-17] MEDS ORDERED: NON-FORMULARY ITEM (Omeprazole [Omeprazole] 20 MG Tablet.Dr) PO PRN (21:26)
--- NOTE | 2024-04-17 22:01 | PCM.HP ---
History of Present Illness - Chief Complaint Chief Complaint: confusion Date: 04/17/24 History of Present Illness: 83-year-old woman with a history of CKD 4, dementia, DM2, hypertension, hypothyroidism, COPD, gout, chronic low back pain, and recurrent UTI, who presents from senior care facility with confusion. Note, patient has had multiple prior admissions with acute encephalopathy secondary to acute cystitis, with multiple cultures usually growing E. coli, with occasional Klebsiella. She was recently discharged from [facility] on 04/02 when she was admitted with acute on chronic kidney injury, when she was discharged to senior care for rehabilitation. At baseline, patient is primarily in bed, able to do stand pivot transfers with a walker to her recliner, but is recumbent the vast majority of her time. While she has been at rehab, she has intermittently been able to participate with physical and Occupational Therapy, with episodes of intermittent confusion. For the past few days, she has been more confused, noted by her daughter to be cursing or referencing things which have not happened, which is not her baseline. At baseline, patient is alert, oriented to person and sometimes place, but is noted primarily to be forgetful rather than having b ehavioral issues. She was noted to be found partially fallen out of bed last night, and this morning, when the patient's daughter visited her, she was agitated, tangential, and cursing, which is abnormal for her. Her daughter states this is similar to prior episodes when she has had a UTI. Of note, patient had a PE diagnosed 12 years ago, at that point she was on warfarin. Since then, has intermittently been on Eliquis, but none for the past 2 to 3 years. In the ED, patient was started on normal saline at 50 mL/h and given one dose of Rocephin. Note, history is obtained from patient's daughter at bedside, as patient is unable to answer any questions due to her encephalopathy. - Review of Systems All Other Systems: Unable due to condition Medications & Allergies Home Medications: Home Medication List Allopurinol 300 mg [Zyloprim 300 mg] 300 mg PO DAILY 11/30/16 [History Confirmed 04/17/24] Carvedilol [Coreg ] 6.25 mg PO BID 03/18/24 [History Confirmed 04/17/24] HydrALAzine HCL 25 MG TAB [Apresoline 25 MG TABLET] 25 mg PO TID 03/18/24 [History Confirmed 04/17/24] Isosorbide Mononitrate 30 mg [Imdur 30 MG] 30 mg PO DAILY 03/18/24 [History Confirmed 04/17/24] Spironolactone 25 mg [Aldactone 25 MG] 25 mg PO DAILY 03/18/24 [History Confirmed 04/17/24] Torsemide 20 mg [Demadex 20 mg] 20 mg PO BID 03/18/24 [History Confirmed 04/17/24] Amlodipine Besylate [Norvasc] 2.5 mg PO DAILY 03/30/24 [History Confirmed 04/17/24] Brexpiprazole [Rexulti] 2 mg PO DAILY 03/30/24 [History Confirmed 04/17/24] Ergocalciferol (Vitamin D2) [Vitamin D2] 50 mcg PO DAILY 03/30/24 [History Confirmed 04/17/24] Glimepiride 2 mg [Amaryl 2 MG] 2 mg PO DAILY 03/30/24 [History Confirmed 04/17/24] Hydrocodone/Acetaminophen [Hydrocodone-Acetamin 7.5-325] 1 each PO Q6H PRN 03/30/24 [History Confirmed 04/17/24] Olmesartan Medoxomil [Benicar] 10 mg PO DAILY 03/30/24 [History Confirmed 04/17/24] Omeprazole 20 mg PO DAILY PRN 03/30/24 [History Confirmed 04/17/24] Ondansetron [Ondansetron Odt ] 4 mg PO Q8H PRN PRN 03/30/24 [History Confirmed 04/17/24] Nystatin Powder 15 gm [Nystop Powder 15 gm] 1 gm TP BID 14 Days #1 misc 04/02/24 [Rx Confirmed 04/17/24] Fluticasone/Umeclidin/Vilanter [Trelegy Ellipta 100-62.5-25] 1 puff DAILY 04/17/24 [History Confirmed 04/17/24] Levothyroxine Sodium 100 Mcg [Synthroid 100 Mcg] 200 mcg PO DAILY 04/17/24 [History Confirmed 04/17/24] Saccharomyces Boulardii [Probiotic] 1 ea DAILY 04/17/24 [History Confirmed 04/17/24] Allergies/Adverse Reactions: Allergies Allergy/AdvReac Type Severity Reaction Status Date / Time amoxicillin Allergy Verified 03/30/24 16:02 levofloxacin [From Levaquin] Allergy Verified 03/30/24 16:02 ofloxacin [From Floxin] Allergy Verified 03/30/24 16:02 Sulfa (Sulfonamide Allergy Verified 03/30/24 16:02 Antibiotics) [Sulfa(Sulfonamide Antibiotics)] adhesive tape AdvReac Verified 03/30/24 21:58 - Past Medical History Past Medical History: Yes Neurological History: Dementia, Peripheral Neuropathy ENT History: Cataracts Cardiac History: Hypertension Respiratory History: COPD, Pulmonary Embolism (Diagnosed 12 years ago, but has been intermittently on Eliquis since then.) Endocrine Medical History: Diabetes Type II, Hypothyroidism Musculoskelatal History: Arthritis, Degenerative Disk Disease, Osteoarthritis GI Medical History: Diverticulosis, Hemorrhoids, Hernia, Other History: Renal Disease Pyscho-Social History: No Pertinent History Reproductive Disorders: No Pertinent History Comment: PE, ARRYTHMIA, MYELODSYPLASTIC SYNDROME. PSH: CARDIAC CATH, HYSTERECTOMY, LUMPECTOMY, BASAL AND SQUAMOUS CELL CA. Stage 4 CKD, afib - Past Surgical History Past Surgical History: Yes Neuro Surgical History: No Pertinent History Cardiac History: Cardiac Catheterization Respiratory Surgery: No Pertinent History GI Surgical History: Other Genitourinary Surgical Hx: No Pertinent History Musculskeletal Surgical Hx: No Pertinent History Female Surgical History: Hysterectomy, Lumpectomy Other Surgical History: breast tumor removed, tumor removed from back benign, 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, cauterization due to intestinal bleed, colon ruptured was septic and has colostomy Significant Family History: no pertinent family hx - Social History Smoking Status: Never smoker Exposure to second hand smoke: Yes Alcohol: None Drug Use: none - Social Determinants of Health Will the patient participate in the screening: Unable to obtain Do you worry about a steady place to live?: No In the past 12 months,have you had to go without utilities?: No Have you or anyone in your house had to go without enough: No Transportation Issues: No Has anyone in your support network made you feel unsafe?: No Does the patient want assistance with any of the above?: No - Physical Exam Vital Signs: Vital Signs - 24 hr Temp Pulse Resp BP BP Pulse Ox 04/17/24 20:26 104 H 16 128/85 96 04/17/24 20:11 105 H 95 04/17/24 20:02 107 H 14 04/17/24 20:00 98.2 F 107 H 18 04/17/24 19:50 112 H 20 04/17/24 19:40 109 H 18 04/17/24 19:30 107 H 19 04/17/24 19:20 106 H 20 04/17/24 19:10 97 H 15 04/17/24 19:00 108 H 17 04/17/24 18:50 113 H 12 04/17/24 18:40 111 H 28 H 04/17/24 18:30 96 H 13 04/17/24 18:20 104 H 14 04/17/24 18:10 106 H 15 04/17/24 18:03 108 H 23 97 04/17/24 17:30 106 H 19 104/61 04/17/24 17:01 110 H 13 76/59 04/17/24 16:53 95 04/17/24 16:31 109 H 22 115/54 96 04/17/24 16:01 102 H 19 101/70 04/17/24 15:30 103 H 18 99/66 04/17/24 15:01 106 H 18 130/55 04/17/24 14:30 103 H 17 104/73 04/17/24 14:00 104 H 17 82/39 04/17/24 13:31 97 H 18 82/55 04/17/24 13:20 97 H 18 111/64 97 04/17/24 13:01 99 H 16 111/64 04/17/24 11:52 92 L 04/17/24 11:37 97.2 F 96 H 18 95 GEN: Lying in bed, distractible, not really answering questions. NEURO: Moving all extremities well, face symmetric, no dysarthria CV: Regular rate & rhythm, no murmurs, no edema PULM: Clear to auscultation bilaterally, no work of breathing, on room air ABD: Soft, nondistended, colostomy with brown stool. PSYCH: Alert, oriented only to person, not able to give answers to most questions SKIN: Bruising over left upper arm, circumferential. Chronic wounds over right leg and buttock, unchanged per daughter. Results - Labs Lab/Micro Results: Lab Results-Last 24 Hours 04/17/24 04/17/24 04/17/24 Range/Units 11:39 11:52 12:03 WBC 11.8 H (3.98-10.04) x10^3/uL RBC 3.42 L (3.93-5.22) x10^6/uL Hgb 9.9 L (11.2-15.7) g/dL Hct 30.2 L (34.1-44.9) % MCV 88.3 (79.4-94.8) fL MCH 28.9 (25.6-32.2) pg MCHC 32.8 (32.2-35.5) g/dL RDW 15.7 H (11.7-14.4) % Plt Count 308 (182-369) x10^3/uL MPV 8.6 L (9.4-12.3) fL Gran % 76.0 H (34.0-71.1) % Immature Gran % (Auto) 0.8 H (0.001-0.429) % Nucleat RBC Rel Count 0.0 (0.00-0.2) % Eos # (Auto) 0.24 (0.04-0.36) x10^3/uL Immature Gran # (Auto) 0.09 H (0.001-0.031) x10^3u/L Absolute Lymphs (auto) 1.68 (1.18-3.74) x10^3/uL Absolute Monos (auto) 0.75 (0.24-0.86) x10^3/uL Absolute Nucleated RBC 0.00 (0.00-0.012) x10^3u/L Lymphocytes % 14.2 L (19.3-51.7) % Monocytes % 6.3 (4.7-12.5) % Eosinophils % 2.0 (0.7-5.8) % Basophils % 0.7 (0.1-1.2) % Absolute Granulocytes 9.00 H (1.56-6.13) x10^3/uL Basophils # 0.08 (0.01-0.08) x10^3/uL PT (9.4-12.5) SECONDS INR (0.8-3.0) APTT (25.1-36.5) SECONDS D-Dimer (0.0-0.50) mg/L Sodium (135-145) mmol/L Potassium (3.5-5.1) mmol/L Chloride (98-107) mmol/L Carbon Dioxide (22-30) mmol/L Anion Gap (5-15) MEQ/L BUN (7-17) mg/dL Creatinine (0.52-1.04) mg/dL Estimated GFR ML/MIN Glucose (74-106) mg/dL POC Glucometer (74 to 106) mg/dL Lactic Acid 0.9 (0.4-2.0) Calcium (8.4-10.2) mg/dL Magnesium (1.6-2.3) mg/dL Total Bilirubin (0.2-1.3) mg/dL AST (14-36) U/L ALT (0-35) U/L Alkaline Phosphatase (38-126) U/L Troponin I (0.000-0.033) ng/mL NT-Pro-B Natriuret Pep (<300) pg/mL Serum Total Protein (6.3-8.2) g/dL Albumin (3.5-5.0) g/dL Free T4 (0.78-2.19) ng/dL TSH 3rd Generation (0.470-4.680) mIU/L Urine Color Yellow (Yellow) Urine Appearance Turbid A (Clear) Urine pH 5.5 (4.6-8.0) Ur Specific [place] 1.010 (1.005-1.030) Urine Protein 30 (Negative) Urine Glucose (UA) Negative (Negative) mg/dL Urine Ketones Negative (Negative) Urine Blood Trace (Negative) Urine Nitrite Negative (Negative) Urine Bilirubin Negative (Negative) Urine Urobilinogen 0.2 (0.2) mg/dL Ur Leukocyte Esterase Large A (Negative) U Hyaline Cast (Auto) NONE SEEN (0-2) /LPF Urine Microscopic RBC 0-2 (0-5) /HPF Urine Microscopic WBC >100 A (0-5) /HPF Ur Epithelial Cells Rare (None Seen) /HPF Urine Bacteria Many A (None Seen) /HPF Urine Culture Reflexed ORDERED SEPARATELY (NO) Influenza Type A Ag (NEGATIVE) Influenza Type B Ag (NEGATIVE) RSV (PCR) (NEGATIVE) SARS-CoV-2 (PCR) (NEGATIVE) 04/17/24 04/17/24 04/17/24 Range/Units 12:03 12:03 12:03 WBC (3.98-10.04) x10^3/uL RBC (3.93-5.22) x10^6/uL Hgb (11.2-15.7) g/dL Hct (34.1-44.9) % MCV (79.4-94.8) fL MCH (25.6-32.2) pg MCHC (32.2-35.5) g/dL RDW (11.7-14.4) % Plt Count (182-369) x10^3/uL MPV (9.4-12.3) fL Gran % (34.0-71.1) % Immature Gran % (Auto) (0.001-0.429) % Nucleat RBC Rel Count (0.00-0.2) % Eos # (Auto) (0.04-0.36) x10^3/uL Immature Gran # (Auto) (0.001-0.031) x10^3u/L Absolute Lymphs (auto) (1.18-3.74) x10^3/uL Absolute Monos (auto) (0.24-0.86) x10^3/uL Absolute Nucleated RBC (0.00-0.012) x10^3u/L Lymphocytes % (19.3-51.7) % Monocytes % (4.7-12.5) % Eosinophils % (0.7-5.8) % Basophils % (0.1-1.2) % Absolute Granulocytes (1.56-6.13) x10^3/uL Basophils # (0.01-0.08) x10^3/uL PT (9.4-12.5) SECONDS INR (0.8-3.0) APTT (25.1-36.5) SECONDS D-Dimer 2.18 H* (0.0-0.50) mg/L Sodium 132 L (135-145) mmol/L Potassium 4.3 (3.5-5.1) mmol/L Chloride 98 (98-107) mmol/L Carbon Dioxide 27 (22-30) mmol/L Anion Gap 10.7 (5-15) MEQ/L BUN 38 H (7-17) mg/dL Creatinine 1.81 H (0.52-1.04) mg/dL Estimated GFR 27.3 ML/MIN Glucose 154 H (74-106) mg/dL POC Glucometer (74 to 106) mg/dL Lactic Acid (0.4-2.0) Calcium 10.3 H (8.4-10.2) mg/dL Magnesium 1.7 (1.6-2.3) mg/dL Total Bilirubin 0.60 (0.2-1.3) mg/dL AST 25 (14-36) U/L ALT 13 (0-35) U/L Alkaline Phosphatase 92 (38-126) U/L Troponin I < 0.012 (0.000-0.033) ng/mL NT-Pro-B Natriuret Pep 936 (<300) pg/mL Serum Total Protein 7.2 (6.3-8.2) g/dL Albumin 3.8 (3.5-5.0) g/dL Free T4 (0.78-2.19) ng/dL TSH 3rd Generation 3.709 (0.470-4.680) mIU/L Urine Color (Yellow) Urine Appearance (Clear) Urine pH (4.6-8.0) Ur Specific [place] (1.005-1.030) Urine Protein (Negative) Urine Glucose (UA) (Negative) mg/dL Urine Ketones (Negative) Urine Blood (Negative) Urine Nitrite (Negative) Urine Bilirubin (Negative) Urine Urobilinogen (0.2) mg/dL Ur Leukocyte Esterase (Negative) U Hyaline Cast (Auto) (0-2) /LPF Urine Microscopic RBC (0-5) /HPF Urine Microscopic WBC (0-5) /HPF Ur Epithelial Cells (None Seen) /HPF Urine Bacteria (None Seen) /HPF Urine Culture Reflexed (NO) Influenza Type A Ag (NEGATIVE) Influenza Type B Ag (NEGATIVE) RSV (PCR) (NEGATIVE) SARS-CoV-2 (PCR) (NEGATIVE) 04/17/24 04/17/24 04/17/24 Range/Units 12:03 12:06 12:30 WBC (3.98-10.04) x10^3/uL RBC (3.93-5.22) x10^6/uL Hgb (11.2-15.7) g/dL Hct (34.1-44.9) % MCV (79.4-94.8) fL MCH (25.6-32.2) pg MCHC (32.2-35.5) g/dL RDW (11.7-14.4) % Plt Count (182-369) x10^3/uL MPV (9.4-12.3) fL Gran % (34.0-71.1) % Immature Gran % (Auto) (0.001-0.429) % Nucleat RBC Rel Count (0.00-0.2) % Eos # (Auto) (0.04-0.36) x10^3/uL Immature Gran # (Auto) (0.001-0.031) x10^3u/L Absolute Lymphs (auto) (1.18-3.74) x10^3/uL Absolute Monos (auto) (0.24-0.86) x10^3/uL Absolute Nucleated RBC (0.00-0.012) x10^3u/L Lymphocytes % (19.3-51.7) % Monocytes % (4.7-12.5) % Eosinophils % (0.7-5.8) % Basophils % (0.1-1.2) % Absolute Granulocytes (1.56-6.13) x10^3/uL Basophils # (0.01-0.08) x10^3/uL PT 10.5 (9.4-12.5) SECONDS INR 0.96 (0.8-3.0) APTT 29.0 (25.1-36.5) SECONDS D-Dimer (0.0-0.50) mg/L Sodium (135-145) mmol/L Potassium (3.5-5.1) mmol/L Chloride (98-107) mmol/L Carbon Dioxide (22-30) mmol/L Anion Gap (5-15) MEQ/L BUN (7-17) mg/dL Creatinine (0.52-1.04) mg/dL Estimated GFR ML/MIN Glucose (74-106) mg/dL POC Glucometer (74 to 106) mg/dL Lactic Acid (0.4-2.0) Calcium (8.4-10.2) mg/dL Magnesium (1.6-2.3) mg/dL Total Bilirubin (0.2-1.3) mg/dL AST (14-36) U/L ALT (0-35) U/L Alkaline Phosphatase (38-126) U/L Troponin I (0.000-0.033) ng/mL NT-Pro-B Natriuret Pep (<300) pg/mL Serum Total Protein (6.3-8.2) g/dL Albumin (3.5-5.0) g/dL Free T4 2.72 H (0.78-2.19) ng/dL TSH 3rd Generation (0.470-4.680) mIU/L Urine Color (Yellow) Urine Appearance (Clear) Urine pH (4.6-8.0) Ur Specific [place] (1.005-1.030) Urine Protein (Negative) Urine Glucose (UA) (Negative) mg/dL Urine Ketones (Negative) Urine Blood (Negative) Urine Nitrite (Negative) Urine Bilirubin (Negative) Urine Urobilinogen (0.2) mg/dL Ur Leukocyte Esterase (Negative) U Hyaline Cast (Auto) (0-2) /LPF Urine Microscopic RBC (0-5) /HPF Urine Microscopic WBC (0-5) /HPF Ur Epithelial Cells (None Seen) /HPF Urine Bacteria (None Seen) /HPF Urine Culture Reflexed (NO) Influenza Type A Ag NEGATIVE (NEGATIVE) Influenza Type B Ag NEGATIVE (NEGATIVE) RSV (PCR) NEGATIVE (NEGATIVE) SARS-CoV-2 (PCR) NEGATIVE (NEGATIVE) 04/17/24 04/17/24 04/17/24 Range/Units 15:00 19:51 20:49 WBC (3.98-10.04) x10^3/uL RBC (3.93-5.22) x10^6/uL Hgb (11.2-15.7) g/dL Hct (34.1-44.9) % MCV (79.4-94.8) fL MCH (25.6-32.2) pg MCHC (32.2-35.5) g/dL RDW (11.7-14.4) % Plt Count (182-369) x10^3/uL MPV (9.4-12.3) fL Gran % (34.0-71.1) % Immature Gran % (Auto) (0.001-0.429) % Nucleat RBC Rel Count (0.00-0.2) % Eos # (Auto) (0.04-0.36) x10^3/uL Immature Gran # (Auto) (0.001-0.031) x10^3u/L Absolute Lymphs (auto) (1.18-3.74) x10^3/uL Absolute Monos (auto) (0.24-0.86) x10^3/uL Absolute Nucleated RBC (0.00-0.012) x10^3u/L Lymphocytes % (19.3-51.7) % Monocytes % (4.7-12.5) % Eosinophils % (0.7-5.8) % Basophils % (0.1-1.2) % Absolute Granulocytes (1.56-6.13) x10^3/uL Basophils # (0.01-0.08) x10^3/uL PT (9.4-12.5) SECONDS INR (0.8-3.0) APTT (25.1-36.5) SECONDS D-Dimer (0.0-0.50) mg/L Sodium (135-145) mmol/L Potassium (3.5-5.1) mmol/L Chloride (98-107) mmol/L Carbon Dioxide (22-30) mmol/L Anion Gap (5-15) MEQ/L BUN (7-17) mg/dL Creatinine (0.52-1.04) mg/dL Estimated GFR ML/MIN Glucose (74-106) mg/dL POC Glucometer 158 H (74 to 106) mg/dL Lactic Acid (0.4-2.0) Calcium (8.4-10.2) mg/dL Magnesium (1.6-2.3) mg/dL Total Bilirubin (0.2-1.3) mg/dL AST (14-36) U/L ALT (0-35) U/L Alkaline Phosphatase (38-126) U/L Troponin I < 0.012 < 0.012 (0.000-0.033) ng/mL NT-Pro-B Natriuret Pep (<300) pg/mL Serum Total Protein (6.3-8.2) g/dL Albumin (3.5-5.0) g/dL Free T4 (0.78-2.19) ng/dL TSH 3rd Generation (0.470-4.680) mIU/L Urine Color (Yellow) Urine Appearance (Clear) Urine pH (4.6-8.0) Ur Specific [place] (1.005-1.030) Urine Protein (Negative) Urine Glucose (UA) (Negative) mg/dL Urine Ketones (Negative) Urine Blood (Negative) Urine Nitrite (Negative) Urine Bilirubin (Negative) Urine Urobilinogen (0.2) mg/dL Ur Leukocyte Esterase (Negative) U Hyaline Cast (Auto) (0-2) /LPF Urine Microscopic RBC (0-5) /HPF Urine Microscopic WBC (0-5) /HPF Ur Epithelial Cells (None Seen) /HPF Urine Bacteria (None Seen) /HPF Urine Culture Reflexed (NO) Influenza Type A Ag (NEGATIVE) Influenza Type B Ag (NEGATIVE) RSV (PCR) (NEGATIVE) SARS-CoV-2 (PCR) (NEGATIVE) - Radiology Impressions Radiology Exams & Impressions: Radiology Procedures Category Date Time Status CERVICAL SPINE WO CONTRAST [CT] Stat Exams 04/17/24 12:36 Completed CHEST 1 VIEW (PORTABLE) Stat Exams 04/17/24 12:36 Completed HEAD WITHOUT CONTRAST [CT] Stat Exams 04/17/24 12:36 Completed VENOUS BILATERAL EXTREMITY [US] Stat Exams 04/17/24 18:40 Completed Chest x-ray: Atelectasis over the right lung base, unchanged from prior chest x- ray on 04/01. Mild cephalization of the veins on the right as well as apparent fluid in the right medial fissure, also unchanged from prior. Severe calcification of the aorta. Slight blunting of the right costophrenic angle, and obscuration of the left costophrenic angle, consistent with mild bilateral pleural effusions. (Images personally reviewed.) Doppler ultrasound bilateral legs: Noncompressible femoral and greater saphenous veins in both legs, although unable to directly visualize thrombus. Assessment/Plan (1) Acute cystitis Current Visit: Yes Status: Acute Assessment & Plan: 83-year-old woman with a history of dementia, hypertension, CKD stage IV, hypothyroidism, DM2, and recurrent UTI, here with acute toxic metabolic encephalopathy secondary to acute cystitis, incidentally found to have bilateral leg DVTs. ## Acute cystitis with pyuria on UA, causing confusion. I reviewed her prior urine cultures, which she normally has a fluoroquinolone-resistant E. coli, with occasionally a pansensitive Klebsiella. Continue Rocephin 1 g IV q.24 hours Follow-up urine cultures ## Acute toxic metabolic encephalopathy secondary to delirium from her acute cystitis, superimposed with her baseline dementia. Continue home Rexulti Add PRN Seroquel 25 mg q.6 hours PRN anxiety until we get her home Rexulti Hold home [place] ## Bilateral leg DVTs patient initially had Doppler ultrasound done because patient had D-dimer ordered in the ED which was found to be 2180. Unable to get CTA chest because of her renal function, but veins were noncompressible on both legs. Of note, patient is high risk because of her lack of mobility, prior history of VTE. She has some bleeding risk with her falls as well as reported history of easy bruisability and bleeding, although she has tolerated Eliquis in the past, according to her daughter. Start Eliquis 10 mg p.o. BID x 7 days, then decrease to 5 mg p.o. BID Has an indication for lifelong anticoagulation with her recurrent VTE, but this will need to be balanced against her fall risk and if she has worsening bruising or bleeding while on anticoagulation ## CKD stage IV is essentially at her baseline creatinine, which most recently was around 1.6. Slightly improved from 1.91-week ago. She has already received half a liter of fluid from the ED. Patient also is high risk for patient chr onically on torsemide, and has evidence of mild pulmonary edema on chest x-ray. Discontinue continuous NS Follow BMP Continue home spironolactone 25, torsemide 20 ## Hypertension blood pressure currently well-controlled. Continue home amlodipine 2.5, torsemide 20 BID, Coreg 6.25 BID, olmesartan 10 daily, hydralazine 25 TID, and spironolactone 25 daily It is better to try to adjust blood pressure medications on an outpatient basis, but given patient's age, it might be better to simplify her medication regimen to consolidate some of these low-dose blood pressure medications and fewer pills. This can be recommended to the PCP through the discharge summary. ## Hypothyroidism Continue home levothyroxine 200 mcg daily ## Type 2 diabetes glucose levels fairly controlled on admission. Patient is only on glimepiride at home, but per daughter, she was recently on Farxiga as well. Hold glimepiride Cover with moderate dose sliding scale insulin (would normally choose low-dose in an elderly patient, but her BMI is 46Continue home spironolactone 25, torsemide 20 CODE STATUS: DNR Prophylaxis: Therapeutic Eliquis Diet: Diabetic Code(s): N30.00 - ACUTE CYSTITIS WITHOUT HEMATURIA Telemedicine Encounter - Telemedicine Encounter Telemedicine Encounter: The entirety of this encounter was performed via Telemedicine"
[2024-04-17] MEDS: Apresoline 25 MG TABLET PO SCH (22:51)
[2024-04-17] MEDS: ELIQUIS 2.5 MG TABLET PO SCH (22:53)
[2024-04-17] MEDS: Coreg PO SCH (22:55)
[2024-04-17] MEDS: NYSTOP POWDER 15 GM TP SCH (23:18)
[2024-04-17] MEDS: Seroquel 25 MG PO PRN (23:22)
[2024-04-17] MEDS: ZOFRAN ODT 4 MG PO PRN (23:23)
[2024-04-17] MEDS: DEMADEX 20 MG PO SCH (23:24)
[2024-04-18 04:49] LABS: Hematocrit 28.8 % (34.1-44.9); Hemoglobin 9.1 g/dL (11.2-15.7); Mean Corpuscular Hemoglobin 28.4 pg (25.6-32.2); Mean Corpuscular Hgb Concent. 31.6 g/dL (32.2-35.5); Mean Platelet Volume 8.7 fL (9.4-12.3); Platelet Count 273 x10^3/uL (182-369); Red Cell Distribution Width 16.1 % (11.7-14.4); White Blood Count 8.7 x10^3/uL (3.98-10.04)
[2024-04-18 05:12] LABS: ANION GAP 10.2 MEQ/L (5-15); Creatinine 1 1.9 mg/dL (0.52-1.04); EST GLOMERULAR FILTRATION RATE 25.7 ML/MIN; Potassium 4.1 mmol/L (3.5-5.1)
--- NOTE | 2024-04-18 05:46 | PCM.NOTE ---
Date and Time: 04/18/24 0540 Subjective Assessment: 83 year old female with a pmhx of dementia, peripheral neuropathy, AFIB, HTN, DMII, hypothyroidism, DDD, and CKD who presented to [facility] 04/17/24 from [facility] nursing facility with a one day history of falling and confusion. Head CT was negative for acute findings. CT cervical spine showing multilevel diffuse disc bulges seen causing ventral thecal sac indentation, bilateral neural foraminal narrowing, and varying degrees of spinal canal stenosis. Lab findings with mild leukocytosis with WBC at 11.8, mild hyponatremia with sodium at 132, creat at 1.81 (baseline 15-1.6), and UA suspicious of infection with large leukocytes and microscopic WBCs. Ddimer elevated at 2.18 -doppler confirmed bilateral leg DVT. Admitted with metabolic encephalopathy secondary to recurrent UTI and DVT. 04/18/24: Met with patient and daughter Shellie at bedside. Patient lethargic but arousable during interview. Poor sleep last night. She is able to state her name and date of . Daughter states mentation is not at baseline. U-cult with gram - ID. Plan to continue ceftriaxone. Discussed DVT. Patient does have a h/o PE 12 years ago, she was on Eliquis until May of 2023. Will start Eliquis today, per pharm no need to renal dose. - Review of Systems All Other Systems: Unable due to condition Objective Exam General Appearance: no apparent distress Neurologic Exam: confusion Skin Exam: normal color Wound Assessment: Skin/Wound Assessment Wound/Incision Assessment Start: 04/17/24 22:18 Text: Status: Active Freq: Q6H Protocol: Document 04/18/24 02:00 AF (Rec: 04/18/24 05:40 AF [id number]) Wound/Incision Assessment Medial Coccyx Wound Assessment Admission Wound Type Pressure Ulcer Wound Stage Stage II Dressing Status Dry & Intact Drainage Amount Moderate Drainage Description Sanguineous Drainage Odor None/Absent General Appearance Bleeding Wound Bed Greatest Portion Red (Granulation) Wound Bed Lesser Portion Red (Granulation) Topical Solution/Irrigant Saline Irrigant Primary Dressing mepilex and mepilex lite Comment wound cleaned with both Normal Saline and Hibiclens; dressed with mepilex and mepilex lite ; bleeding; daughter stated at admission "wound is healing, looks better" Wound Photo Photo Taken Yes Date: 04/18/24 Time: 04:00 Distance from Wound: 6 in Comment: photos placed in paper chart Eye Exam: PERRL Ears, Nose, Throat Exam: normal ENT inspection Neck Exam: normal inspection Respiratory Exam: normal breath sounds, lungs clear Cardiovascular Exam: regular rate/rhythm, normal heart sounds Gastrointestinal/Abdomen Exam: soft, normal bowel sounds Extremity Exam: other (BLE edema) Back Exam: normal inspection Pelvic Exam: deferred Rectal Exam: deferred Objective Data Vital Signs: Vital Signs - 24 hr Temp Pulse Resp BP BP Pulse Ox 04/18/24 04:31 96 H 17 139/93 93 L 04/18/24 04:01 98.7 F 90 24 124/57 94 L 04/18/24 04:00 96 H 04/18/24 03:31 81 21 119/48 04/18/24 03:01 82 17 106/56 95 04/18/24 02:31 94 H 26 H 148/60 04/18/24 02:01 90 17 97/51 94 L 04/18/24 01:31 90 16 113/57 04/18/24 01:01 98.2 F 98 H 23 126/71 97 04/18/24 00:31 100 H 32 H 101/60 04/18/24 00:01 107 H 21 120/67 04/17/24 23:31 109 H 19 134/72 04/17/24 23:01 113 H 24 137/64 95 04/17/24 22:31 121 H 22 147/75 04/17/24 22:01 97 H 19 135/85 92 L 04/17/24 21:31 105 H 21 145/79 04/17/24 21:19 114 H 22 133/57 04/17/24 20:59 98.2 F 96 H 14 128/85 94 L 04/17/24 20:26 104 H 16 128/85 96 04/17/24 20:11 105 H 95 04/17/24 20:02 107 H 14 04/17/24 20:00 98.2 F 107 H 18 04/17/24 19:50 112 H 20 04/17/24 19:40 109 H 18 04/17/24 19:30 107 H 19 04/17/24 19:20 106 H 20 04/17/24 19:10 97 H 15 04/17/24 19:00 108 H 17 04/17/24 18:50 113 H 12 04/17/24 18:40 111 H 28 H 04/17/24 18:30 96 H 13 04/17/24 18:20 104 H 14 04/17/24 18:10 106 H 15 04/17/24 18:03 108 H 23 97 04/17/24 17:30 106 H 19 104/61 04/17/24 17:01 110 H 13 76/59 04/17/24 16:53 95 04/17/24 16:31 109 H 22 115/54 96 04/17/24 16:01 102 H 19 101/70 04/17/24 15:30 103 H 18 99/66 04/17/24 15:01 106 H 18 130/55 04/17/24 14:30 103 H 17 104/73 04/17/24 14:00 104 H 17 82/39 04/17/24 13:31 97 H 18 82/55 04/17/24 13:20 97 H 18 111/64 97 04/17/24 13:01 99 H 16 111/64 04/17/24 11:52 92 L 04/17/24 11:37 97.2 F 96 H 18 95 Pain Assessment - Last Documented Pain Intensity 0 Intake and Output: Intake & Output 04/15/24 04/16/24 04/17/24 04/18/24 11:59 11:59 11:59 11:59 Output Total 300 Balance -300 Weight 117.934 kg 85.9 kg Lab Results: Lab Results-Last 24 Hours 04/17/24 04/17/24 04/17/24 Range/Units 11:39 11:52 12:03 WBC 11.8 H (3.98-10.04) x10^3/uL RBC 3.42 L (3.93-5.22) x10^6/uL Hgb 9.9 L (11.2-15.7) g/dL Hct 30.2 L (34.1-44.9) % MCV 88.3 (79.4-94.8) fL MCH 28.9 (25.6-32.2) pg MCHC 32.8 (32.2-35.5) g/dL RDW 15.7 H (11.7-14.4) % Plt Count 308 (182-369) x10^3/uL MPV 8.6 L (9.4-12.3) fL Gran % 76.0 H (34.0-71.1) % Immature Gran % (Auto) 0.8 H (0.001-0.429) % Nucleat RBC Rel Count 0.0 (0.00-0.2) % Eos # (Auto) 0.24 (0.04-0.36) x10^3/uL Immature Gran # (Auto) 0.09 H (0.001-0.031) x10^3u/L Absolute Lymphs (auto) 1.68 (1.18-3.74) x10^3/uL Absolute Monos (auto) 0.75 (0.24-0.86) x10^3/uL Absolute Nucleated RBC 0.00 (0.00-0.012) x10^3u/L Lymphocytes % 14.2 L (19.3-51.7) % Monocytes % 6.3 (4.7-12.5) % Eosinophils % 2.0 (0.7-5.8) % Basophils % 0.7 (0.1-1.2) % Absolute Granulocytes 9.00 H (1.56-6.13) x10^3/uL Basophils # 0.08 (0.01-0.08) x10^3/uL PT (9.4-12.5) SECONDS INR (0.8-3.0) APTT (25.1-36.5) SECONDS D-Dimer (0.0-0.50) mg/L Sodium (135-145) mmol/L Potassium (3.5-5.1) mmol/L Chloride (98-107) mmol/L Carbon Dioxide (22-30) mmol/L Anion Gap (5-15) MEQ/L BUN (7-17) mg/dL Creatinine (0.52-1.04) mg/dL Estimated GFR ML/MIN Glucose (74-106) mg/dL POC Glucometer (74 to 106) mg/dL Lactic Acid 0.9 (0.4-2.0) Calcium (8.4-10.2) mg/dL Magnesium (1.6-2.3) mg/dL Total Bilirubin (0.2-1.3) mg/dL AST (14-36) U/L ALT (0-35) U/L Alkaline Phosphatase (38-126) U/L Troponin I (0.000-0.033) ng/mL NT-Pro-B Natriuret Pep (<300) pg/mL Serum Total Protein (6.3-8.2) g/dL Albumin (3.5-5.0) g/dL Free T4 (0.78-2.19) ng/dL TSH 3rd Generation (0.470-4.680) mIU/L Urine Color Yellow (Yellow) Urine Appearance Turbid A (Clear) Urine pH 5.5 (4.6-8.0) Ur Specific [place] 1.010 (1.005-1.030) Urine Protein 30 (Negative) Urine Glucose (UA) Negative (Negative) mg/dL Urine Ketones Negative (Negative) Urine Blood Trace (Negative) Urine Nitrite Negative (Negative) Urine Bilirubin Negative (Negative) Urine Urobilinogen 0.2 (0.2) mg/dL Ur Leukocyte Esterase Large A (Negative) U Hyaline Cast (Auto) NONE SEEN (0-2) /LPF Urine Microscopic RBC 0-2 (0-5) /HPF Urine Microscopic WBC >100 A (0-5) /HPF Ur Epithelial Cells Rare (None Seen) /HPF Urine Bacteria Many A (None Seen) /HPF Urine Culture Reflexed ORDERED SEPARATELY (NO) Influenza Type A Ag (NEGATIVE) Influenza Type B Ag (NEGATIVE) RSV (PCR) (NEGATIVE) SARS-CoV-2 (PCR) (NEGATIVE) 04/17/24 04/17/24 04/17/24 Range/Units 12:03 12:03 12:03 WBC (3.98-10.04) x10^3/uL RBC (3.93-5.22) x10^6/uL Hgb (11.2-15.7) g/dL Hct (34.1-44.9) % MCV (79.4-94.8) fL MCH (25.6-32.2) pg MCHC (32.2-35.5) g/dL RDW (11.7-14.4) % Plt Count (182-369) x10^3/uL MPV (9.4-12.3) fL Gran % (34.0-71.1) % Immature Gran % (Auto) (0.001-0.429) % Nucleat RBC Rel Count (0.00-0.2) % Eos # (Auto) (0.04-0.36) x10^3/uL Immature Gran # (Auto) (0.001-0.031) x10^3u/L Absolute Lymphs (auto) (1.18-3.74) x10^3/uL Absolute Monos (auto) (0.24-0.86) x10^3/uL Absolute Nucleated RBC (0.00-0.012) x10^3u/L Lymphocytes % (19.3-51.7) % Monocytes % (4.7-12.5) % Eosinophils % (0.7-5.8) % Basophils % (0.1-1.2) % Absolute Granulocytes (1.56-6.13) x10^3/uL Basophils # (0.01-0.08) x10^3/uL PT (9.4-12.5) SECONDS INR (0.8-3.0) APTT (25.1-36.5) SECONDS D-Dimer 2.18 H* (0.0-0.50) mg/L Sodium 132 L (135-145) mmol/L Potassium 4.3 (3.5-5.1) mmol/L Chloride 98 (98-107) mmol/L Carbon Dioxide 27 (22-30) mmol/L Anion Gap 10.7 (5-15) MEQ/L BUN 38 H (7-17) mg/dL Creatinine 1.81 H (0.52-1.04) mg/dL Estimated GFR 27.3 ML/MIN Glucose 154 H (74-106) mg/dL POC Glucometer (74 to 106) mg/dL Lactic Acid (0.4-2.0) Calcium 10.3 H (8.4-10.2) mg/dL Magnesium 1.7 (1.6-2.3) mg/dL Total Bilirubin 0.60 (0.2-1.3) mg/dL AST 25 (14-36) U/L ALT 13 (0-35) U/L Alkaline Phosphatase 92 (38-126) U/L Troponin I < 0.012 (0.000-0.033) ng/mL NT-Pro-B Natriuret Pep 936 (<300) pg/mL Serum Total Protein 7.2 (6.3-8.2) g/dL Albumin 3.8 (3.5-5.0) g/dL Free T4 (0.78-2.19) ng/dL TSH 3rd Generation 3.709 (0.470-4.680) mIU/L Urine Color (Yellow) Urine Appearance (Clear) Urine pH (4.6-8.0) Ur Specific [place] (1.005-1.030) Urine Protein (Negative) Urine Glucose (UA) (Negative) mg/dL Urine Ketones (Negative) Urine Blood (Negative) Urine Nitrite (Negative) Urine Bilirubin (Negative) Urine Urobilinogen (0.2) mg/dL Ur Leukocyte Esterase (Negative) U Hyaline Cast (Auto) (0-2) /LPF Urine Microscopic RBC (0-5) /HPF Urine Microscopic WBC (0-5) /HPF Ur Epithelial Cells (None Seen) /HPF Urine Bacteria (None Seen) /HPF Urine Culture Reflexed (NO) Influenza Type A Ag (NEGATIVE) Influenza Type B Ag (NEGATIVE) RSV (PCR) (NEGATIVE) SARS-CoV-2 (PCR) (NEGATIVE) 04/17/24 04/17/24 04/17/24 Range/Units 12:03 12:06 12:30 WBC (3.98-10.04) x10^3/uL RBC (3.93-5.22) x10^6/uL Hgb (11.2-15.7) g/dL Hct (34.1-44.9) % MCV (79.4-94.8) fL MCH (25.6-32.2) pg MCHC (32.2-35.5) g/dL RDW (11.7-14.4) % Plt Count (182-369) x10^3/uL MPV (9.4-12.3) fL Gran % (34.0-71.1) % Immature Gran % (Auto) (0.001-0.429) % Nucleat RBC Rel Count (0.00-0.2) % Eos # (Auto) (0.04-0.36) x10^3/uL Immature Gran # (Auto) (0.001-0.031) x10^3u/L Absolute Lymphs (auto) (1.18-3.74) x10^3/uL Absolute Monos (auto) (0.24-0.86) x10^3/uL Absolute Nucleated RBC (0.00-0.012) x10^3u/L Lymphocytes % (19.3-51.7) % Monocytes % (4.7-12.5) % Eosinophils % (0.7-5.8) % Basophils % (0.1-1.2) % Absolute Granulocytes (1.56-6.13) x10^3/uL Basophils # (0.01-0.08) x10^3/uL PT 10.5 (9.4-12.5) SECONDS INR 0.96 (0.8-3.0) APTT 29.0 (25.1-36.5) SECONDS D-Dimer (0.0-0.50) mg/L Sodium (135-145) mmol/L Potassium (3.5-5.1) mmol/L Chloride (98-107) mmol/L Carbon Dioxide (22-30) mmol/L Anion Gap (5-15) MEQ/L BUN (7-17) mg/dL Creatinine (0.52-1.04) mg/dL Estimated GFR ML/MIN Glucose (74-106) mg/dL POC Glucometer (74 to 106) mg/dL Lactic Acid (0.4-2.0) Calcium (8.4-10.2) mg/dL Magnesium (1.6-2.3) mg/dL Total Bilirubin (0.2-1.3) mg/dL AST (14-36) U/L ALT (0-35) U/L Alkaline Phosphatase (38-126) U/L Troponin I (0.000-0.033) ng/mL NT-Pro-B Natriuret Pep (<300) pg/mL Serum Total Protein (6.3-8.2) g/dL Albumin (3.5-5.0) g/dL Free T4 2.72 H (0.78-2.19) ng/dL TSH 3rd Generation (0.470-4.680) mIU/L Urine Color (Yellow) Urine Appearance (Clear) Urine pH (4.6-8.0) Ur Specific [place] (1.005-1.030) Urine Protein (Negative) Urine Glucose (UA) (Negative) mg/dL Urine Ketones (Negative) Urine Blood (Negative) Urine Nitrite (Negative) Urine Bilirubin (Negative) Urine Urobilinogen (0.2) mg/dL Ur Leukocyte Esterase (Negative) U Hyaline Cast (Auto) (0-2) /LPF Urine Microscopic RBC (0-5) /HPF Urine Microscopic WBC (0-5) /HPF Ur Epithelial Cells (None Seen) /HPF Urine Bacteria (None Seen) /HPF Urine Culture Reflexed (NO) Influenza Type A Ag NEGATIVE (NEGATIVE) Influenza Type B Ag NEGATIVE (NEGATIVE) RSV (PCR) NEGATIVE (NEGATIVE) SARS-CoV-2 (PCR) NEGATIVE (NEGATIVE) 04/17/24 04/17/24 04/17/24 Range/Units 15:00 19:51 20:49 WBC (3.98-10.04) x10^3/uL RBC (3.93-5.22) x10^6/uL Hgb (11.2-15.7) g/dL Hct (34.1-44.9) % MCV (79.4-94.8) fL MCH (25.6-32.2) pg MCHC (32.2-35.5) g/dL RDW (11.7-14.4) % Plt Count (182-369) x10^3/uL MPV (9.4-12.3) fL Gran % (34.0-71.1) % Immature Gran % (Auto) (0.001-0.429) % Nucleat RBC Rel Count (0.00-0.2) % Eos # (Auto) (0.04-0.36) x10^3/uL Immature Gran # (Auto) (0.001-0.031) x10^3u/L Absolute Lymphs (auto) (1.18-3.74) x10^3/uL Absolute Monos (auto) (0.24-0.86) x10^3/uL Absolute Nucleated RBC (0.00-0.012) x10^3u/L Lymphocytes % (19.3-51.7) % Monocytes % (4.7-12.5) % Eosinophils % (0.7-5.8) % Basophils % (0.1-1.2) % Absolute Granulocytes (1.56-6.13) x10^3/uL Basophils # (0.01-0.08) x10^3/uL PT (9.4-12.5) SECONDS INR (0.8-3.0) APTT (25.1-36.5) SECONDS D-Dimer (0.0-0.50) mg/L Sodium (135-145) mmol/L Potassium (3.5-5.1) mmol/L Chloride (98-107) mmol/L Carbon Dioxide (22-30) mmol/L Anion Gap (5-15) MEQ/L BUN (7-17) mg/dL Creatinine (0.52-1.04) mg/dL Estimated GFR ML/MIN Glucose (74-106) mg/dL POC Glucometer 158 H (74 to 106) mg/dL Lactic Acid (0.4-2.0) Calcium (8.4-10.2) mg/dL Magnesium (1.6-2.3) mg/dL Total Bilirubin (0.2-1.3) mg/dL AST (14-36) U/L ALT (0-35) U/L Alkaline Phosphatase (38-126) U/L Troponin I < 0.012 < 0.012 (0.000-0.033) ng/mL NT-Pro-B Natriuret Pep (<300) pg/mL Serum Total Protein (6.3-8.2) g/dL Albumin (3.5-5.0) g/dL Free T4 (0.78-2.19) ng/dL TSH 3rd Generation (0.470-4.680) mIU/L Urine Color (Yellow) Urine Appearance (Clear) Urine pH (4.6-8.0) Ur Specific [place] (1.005-1.030) Urine Protein (Negative) Urine Glucose (UA) (Negative) mg/dL Urine Ketones (Negative) Urine Blood (Negative) Urine Nitrite (Negative) Urine Bilirubin (Negative) Urine Urobilinogen (0.2) mg/dL Ur Leukocyte Esterase (Negative) U Hyaline Cast (Auto) (0-2) /LPF Urine Microscopic RBC (0-5) /HPF Urine Microscopic WBC (0-5) /HPF Ur Epithelial Cells (None Seen) /HPF Urine Bacteria (None Seen) /HPF Urine Culture Reflexed (NO) Influenza Type A Ag (NEGATIVE) Influenza Type B Ag (NEGATIVE) RSV (PCR) (NEGATIVE) SARS-CoV-2 (PCR) (NEGATIVE) 04/18/24 04/18/24 Range/Units 04:40 04:40 WBC 8.7 (3.98-10.04) x10^3/uL RBC 3.20 L (3.93-5.22) x10^6/uL Hgb 9.1 L (11.2-15.7) g/dL Hct 28.8 L (34.1-44.9) % MCV 90.0 (79.4-94.8) fL MCH 28.4 (25.6-32.2) pg MCHC 31.6 L (32.2-35.5) g/dL RDW 16.1 H (11.7-14.4) % Plt Count 273 (182-369) x10^3/uL MPV 8.7 L (9.4-12.3) fL Gran % (34.0-71.1) % Immature Gran % (Auto) (0.001-0.429) % Nucleat RBC Rel Count (0.00-0.2) % Eos # (Auto) (0.04-0.36) x10^3/uL Immature Gran # (Auto) (0.001-0.031) x10^3u/L Absolute Lymphs (auto) (1.18-3.74) x10^3/uL Absolute Monos (auto) (0.24-0.86) x10^3/uL Absolute Nucleated RBC (0.00-0.012) x10^3u/L Lymphocytes % (19.3-51.7) % Monocytes % (4.7-12.5) % Eosinophils % (0.7-5.8) % Basophils % (0.1-1.2) % Absolute Granulocytes (1.56-6.13) x10^3/uL Basophils # (0.01-0.08) x10^3/uL PT (9.4-12.5) SECONDS INR (0.8-3.0) APTT (25.1-36.5) SECONDS D-Dimer (0.0-0.50) mg/L Sodium 137 (135-145) mmol/L Potassium 4.1 (3.5-5.1) mmol/L Chloride 100 (98-107) mmol/L Carbon Dioxide 31 H (22-30) mmol/L Anion Gap 10.2 (5-15) MEQ/L BUN 34 H (7-17) mg/dL Creatinine 1.90 H (0.52-1.04) mg/dL Estimated GFR 25.7 ML/MIN Glucose 111 H (74-106) mg/dL POC Glucometer (74 to 106) mg/dL Lactic Acid (0.4-2.0) Calcium 10.0 (8.4-10.2) mg/dL Magnesium (1.6-2.3) mg/dL Total Bilirubin (0.2-1.3) mg/dL AST (14-36) U/L ALT (0-35) U/L Alkaline Phosphatase (38-126) U/L Troponin I (0.000-0.033) ng/mL NT-Pro-B Natriuret Pep (<300) pg/mL Serum Total Protein (6.3-8.2) g/dL Albumin (3.5-5.0) g/dL Free T4 (0.78-2.19) ng/dL TSH 3rd Generation (0.470-4.680) mIU/L Urine Color (Yellow) Urine Appearance (Clear) Urine pH (4.6-8.0) Ur Specific [place] (1.005-1.030) Urine Protein (Negative) Urine Glucose (UA) (Negative) mg/dL Urine Ketones (Negative) Urine Blood (Negative) Urine Nitrite (Negative) Urine Bilirubin (Negative) Urine Urobilinogen (0.2) mg/dL Ur Leukocyte Esterase (Negative) U Hyaline Cast (Auto) (0-2) /LPF Urine Microscopic RBC (0-5) /HPF Urine Microscopic WBC (0-5) /HPF Ur Epithelial Cells (None Seen) /HPF Urine Bacteria (None Seen) /HPF Urine Culture Reflexed (NO) Influenza Type A Ag (NEGATIVE) Influenza Type B Ag (NEGATIVE) RSV (PCR) (NEGATIVE) SARS-CoV-2 (PCR) (NEGATIVE) Radiology Exams: Radiology Procedures Category Date Time Status CERVICAL SPINE WO CONTRAST [CT] Stat Exams 04/17/24 12:36 Completed CHEST 1 VIEW (PORTABLE) Stat Exams 04/17/24 12:36 Completed HEAD WITHOUT CONTRAST [CT] Stat Exams 04/17/24 12:36 Completed VENOUS BILATERAL EXTREMITY [US] Stat Exams 04/17/24 18:40 Completed Assessment/Plan (1) Acute cystitis Current Visit: Yes Status: Acute Assessment & Plan: -recurrent with previous cultures with ecoli/ pansensitive klebsiella -Rocephin - follow cultures Code(s): N30.00 - ACUTE CYSTITIS WITHOUT HEMATURIA (2) Encephalopathy due to metabolic factor or toxin Current Visit: Yes Status: Acute Assessment & Plan: -Most likely secondary to UTI/baseline dementia - improving but not at baseline Continue home Rexulti Add PRN Seroquel 25 mg q.6 hours PRN anxiety until we get her home Rexulti Hold home [place] Code(s): SSK1012 - (3) DVT, bilateral lower limbs Current Visit: Yes Status: Acute Assessment & Plan: patient initially had Doppler ultrasound done because patient had D-dimer ordered in the ED which was found to be 2180. Unable to get CTA chest because of her renal function, but veins were noncompressible on both legs. Of note, patient is high risk because of her lack of mobility, prior history of VTE. She has some bleeding risk with her falls as well as reported history of easy brui sability and bleeding, although she has tolerated Eliquis in the past, according to her daughter for previous PE diagnosed 12 year ago. Eliquis was d/cd in May of 2023 Start Eliquis 10 mg p.o. BID x 7 days, then decrease to 5 mg p.o. BID - no need for renal dosing per pharm Has an indication for lifelong anticoagulation with her recurrent VTE, but this will need to be balanced against her fall risk and if she has worsening bruising or bleeding while on anticoagulation Code(s): I82.403 - ACUTE EMBOLISM AND THOMBOS UNSP DEEP VEINS OF LOW EXTRM, BI (4) CKD stage 4 due to type 2 diabetes mellitus Current Visit: Yes Status: Acute Assessment & Plan: -Baseline around 1.6 - at 1.9 today -monitor renal/lytes daily -avoid nephrotoxic medications - MATHEW/ARB/ NSAIDS -continue home spironolactone - hold torsemide with worsening creat -IVF at 50ml/hr Code(s): E11.22 - TYPE 2 DIABETES MELLITUS W DIABETIC CHRONIC KIDNEY DISEASE; N18.4 - CHRONIC KIDNEY DISEASE, STAGE 4 (SEVERE) (5) HTN (hypertension) Current Visit: Yes Status: Acute Assessment & Plan: Continue home amlodipine 2.5, torsemide 20 BID, Coreg 6.25 BID, olmesartan 10 daily, hydralazine 25 TID, and spironolactone 25 daily Code(s): I10 - ESSENTIAL (PRIMARY) HYPERTENSION (6) Hypothyroid Current Visit: Yes Status: Acute Assessment & Plan: Continue home levothyroxine 200 mcg daily Code(s): E03.9 - HYPOTHYROIDISM, UNSPECIFIED (7) Type 2 diabetes mellitus Current Visit: Yes Status: Acute Assessment & Plan: -ADA diet -hold glimepiride -SSI- moderate dose CODE STATUS: DNR Prophylaxis: Therapeutic Eliquis Diet: Diabetic
[2024-04-18] MEDS ORDERED: Protonix 40MG Tablet PO PRN (07:06)
[2024-04-18] MEDS ORDERED: Seroquel 25 MG PO PRN (07:07)
[2024-04-18] MEDS ORDERED: MEDICATION INTERVENTION MC SCH ×3 (07:30)
[2024-04-18] MEDS ORDERED: OLMESARTAN MEDOXOMIL 5 MG PO SCH (10:00)
[2024-04-18] MEDS ORDERED: NON-FORMULARY ITEM (Amlodipine Besylate [Norvasc] 2.5 MG Tablet) PO SCH (10:00)
[2024-04-18] MEDS ORDERED: SACCHAROMYCES BOULARDII 250 MG PO SCH (10:00)
[2024-04-18] MEDS ORDERED: BREXPIPRAZOLE 2 MG PO SCH (10:00)
[2024-04-18] MEDS ORDERED: NON-FORMULARY ITEM (Fluticasone/Umeclidin/Vilanter [Trelegy Ellipta 100-62.5-25] 1 EACH Bl IH SCH (10:00)
[2024-04-18] MEDS ORDERED: ERGOCALCIFEROL 50 MCG PO SCH (10:00)
[2024-04-18] MEDS: Acidophilus TABLET PO SCH (10:57)
[2024-04-18] MEDS: Aldactone 25 MG PO SCH (10:57)
[2024-04-18] MEDS: SYNTHROID 100 MCG PO SCH (10:57)
[2024-04-18] MEDS: Benicar 20 MG PO SCH (10:58)
[2024-04-18] MEDS: ZYLOPRIM 300 MG PO SCH (10:58)
[2024-04-18] MEDS: Imdur 30 MG PO SCH (10:58)
[2024-04-18] MEDS: NORVASC 5 MG PO SCH (10:58)
[2024-04-18] MEDS: ROCEPHIN 1 GM / 100 ML NaCl 1 GM/100 ML IVPB IV SCH (11:00)
[2024-04-18] MEDS: PATIENT OWN MEDICATION IH SCH (16:56)
[2024-04-18] MEDS: HUMALOG SQ PRN (22:02)
[2024-04-19] MEDS: Sodium Chloride 0.9% 1000 ML 1,000 ML IV SCH ×2 (01:26→21:25)
[2024-04-19 04:31] LABS: Absolute Neutrophil Ct (ANC) 5.77 x10^3/uL (1.56-6.13); BASOPHIL % 0.8 % (0.1-1.2); Basophil (Absolute #) 0.08 x10^3/uL (0.01-0.08); Eosinophil % 4.2 % (0.7-5.8); Eosinophil (Absolute #) 0.41 x10^3/uL (0.04-0.36); Hematocrit 25.8 % (34.1-44.9); Hemoglobin 7.8 g/dL (11.2-15.7); IMMATURE GRAN # 0.11 x10^3u/L (0.001-0.031); IMMATURE GRAN % 1.1 % (0.001-0.429); Lymphocytes % 26.7 % (19.3-51.7); Mean Cell Volume 90.8 fL (79.4-94.8); Mean Corpuscular Hemoglobin 27.5 pg (25.6-32.2); Mean Corpuscular Hgb Concent. 30.2 g/dL (32.2-35.5); Mean Platelet Volume 8.9 fL (9.4-12.3); Monocyte (Absolute #) 0.78 x10^3/uL (0.24-0.86); Neutrophil % 59.2 % (34.0-71.1); Platelet Count 260 x10^3/uL (182-369); Red Blood Count 2.84 x10^6/uL (3.93-5.22); Red Cell Distribution Width 16.1 % (11.7-14.4); White Blood Count 9.8 x10^3/uL (3.98-10.04)
[2024-04-19 05:14] LABS: ALBUMIN 3.1 g/dL (3.5-5.0); ANION GAP 9.6 MEQ/L (5-15); BILIRUBIN,TOTAL 0.3 mg/dL (0.2-1.3); Calcium 9.2 mg/dL (8.4-10.2); Creatinine 1 2.89 mg/dL (0.52-1.04); EST GLOMERULAR FILTRATION RATE 15.6 ML/MIN; Total Protein 6.1 g/dL (6.3-8.2)
[2024-04-19 09:01] LABS: Iron 42 ug/dL (37-170); Iron Saturation 19 % (20-39); TIBC 225 ug/dL (265-462)
[2024-04-19] MEDS: VITAMIN D PO SCH (09:28)
[2024-04-19] MEDS: NORCO 7.5/325 MG TAB PO PRN (09:28)
[2024-04-19 10:00] LABS: Ferritin 36.1 ng/mL (11.1-264); Folate (Folic Acid) 11.7 ng/mL (2.76 - >20)
--- NOTE | 2024-04-19 11:51 | PCM.NOTE ---
Date and Time: 04/19/24 1146 Subjective Assessment: 83 year old female with a pmhx of dementia, peripheral neuropathy, AFIB, HTN, DMII, hypothyroidism, DDD, and CKD who presented to [facility] ED 04/17/24 from [facility] facility with a one day history of falling and confusion. Head CT was negative for acute findings. CT cervical spine showing multilevel diffuse disc bulges seen causing ventral thecal sac indentation, bilateral neural foraminal narrowing, and varying degrees of spinal canal stenosis. Lab findings with mild leukocytosis with WBC at 11.8, mild hyponatremia with sodium at 132, creat at 1.81 (baseline 15-1.6), and Ucult with Klebsiella. Ddimer elevated at 2.18 - doppler confirmed bilateral leg DVT. Admitted with metabolic encephalopathy secondary to recurrent UTI and DVT. Plan for ceftriaxone, IVF, and eliquis. Mentation now at baseline. 04/18/24: Met with patient and daughter Isatu at bedside. Patient lethargic but arousable during interview. Poor sleep last night. She is able to state her name and date of . Daughter states mentation is not at baseline. U-cult with gram - ID. Plan to continue ceftriaxone. Discussed DVT. Patient does have a h/o PE 12 years ago, she was on Eliquis until May of 2023. Will start Eliquis today, per pharm no need to renal dose. 04/19/24 Patient A&O x 3 today. Much more alert, at baseline mentation per daughter Amanda. Endorses back pain which is chronic, will resume her home pain regimen. Discussed Ucult with patient, ceftriaxone is good coverage, will continue. Kidney function is worsening, will continue IVF. Plan is to discharge home with hospice once kidney function is at baseline. Denies fever,cough, sob, cp, abdominal pain, BOYD, dizziness, N/V/D. - Review of Systems Constitutional: No Symptoms Eyes: No Symptoms Ears, Nose, & Throat: No Symptoms Respiratory: Short Of Breath (intermittent) Cardiac: No Symptoms Abdominal/Gastrointestinal: No Symptoms Genitourinary Symptoms: No Symptoms Musculoskeletal: Back Pain Skin: No Symptoms Neurological: No Symptoms Psychological: No Symptoms Endocrine: No Symptoms Hematologic/Lymphatic: Anemia Immunological/Allergic: No Symptoms Objective Exam General Appearance: no apparent distress Neurologic Exam: alert, oriented x 3, cooperative Skin Exam: pale Wound Assessment: Skin/Wound Assessment Wound/Incision Assessment Start: 04/17/24 22:18 Text: Status: Active Freq: Q6H Protocol: Document 04/19/24 08:00 RB (Rec: 04/19/24 08:24 RB [id number]) Wound/Incision Assessment Medial Coccyx Wound Assessment Shift Assessment Wound Type Pressure Ulcer Wound Stage Stage II Dressing Status Dry & Intact Drainage Amount Moderate Drainage Description Sanguineous Drainage Odor None/Absent General Appearance Bleeding Wound Bed Greatest Portion Red (Granulation) Wound Bed Lesser Portion Red (Granulation) Primary Dressing mepilex and mepilex lite Wound Photo Photo Taken Yes Eye Exam: PERRL Ears, Nose, Throat Exam: normal ENT inspection Neck Exam: normal inspection Respiratory Exam: normal breath sounds, lungs clear Cardiovascular Exam: regular rate/rhythm, normal heart sounds Gastrointestinal/Abdomen Exam: soft, normal bowel sounds Extremity Exam: normal inspection Back Exam: normal inspection Objective Data Vital Signs: Vital Signs - 24 hr Temp Pulse Resp BP BP Pulse Ox 04/19/24 11:44 97.7 F 64 19 122/57 91 L 04/19/24 07:55 76 20 90 L 04/19/24 07:48 98.6 F 77 20 117/46 90 L 04/19/24 04:43 97.5 F 77 18 90/50 90 L 04/19/24 00:47 97.5 F 79 16 111/52 90 L 04/18/24 19:21 97.1 F 88 16 90 L 04/18/24 16:01 86 16 105/53 04/18/24 15:01 79 20 109/48 04/18/24 14:01 75 19 106/62 96 04/18/24 12:01 66 17 109/43 04/18/24 11:50 76 15 90/44 92 L 04/18/24 11:47 81 18 74/47 91 L Pain Assessment - Last Documented Pain Intensity 5 Pain Scale Used 0-10 Pain Scale Intake and Output: Intake & Output 04/16/24 04/17/24 04/18/24 04/19/24 11:59 11:59 11:59 11:59 Intake Total 240 Output Total 450 450 Balance -450 -210 Weight 117.934 kg 85.9 kg Lab Results: Lab Results-Last 24 Hours 04/18/24 04/18/24 04/19/24 Range/Units 17:05 21:15 04:17 WBC 9.8 (3.98-10.04) x10^3/uL RBC 2.84 L (3.93-5.22) x10^6/uL Hgb 7.8 L (11.2-15.7) g/dL Hct 25.8 L (34.1-44.9) % MCV 90.8 (79.4-94.8) fL MCH 27.5 (25.6-32.2) pg MCHC 30.2 L (32.2-35.5) g/dL RDW 16.1 H (11.7-14.4) % Plt Count 260 (182-369) x10^3/uL MPV 8.9 L (9.4-12.3) fL Gran % 59.2 (34.0-71.1) % Immature Gran % (Auto) 1.1 H (0.001-0.429) % Nucleat RBC Rel Count 0.0 (0.00-0.2) % Eos # (Auto) 0.41 H (0.04-0.36) x10^3/uL Immature Gran # (Auto) 0.11 H (0.001-0.031) x10^3u/L Absolute Lymphs (auto) 2.60 (1.18-3.74) x10^3/uL Absolute Monos (auto) 0.78 (0.24-0.86) x10^3/uL Absolute Nucleated RBC 0.00 (0.00-0.012) x10^3u/L Lymphocytes % 26.7 (19.3-51.7) % Monocytes % 8.0 (4.7-12.5) % Eosinophils % 4.2 (0.7-5.8) % Basophils % 0.8 (0.1-1.2) % Absolute Granulocytes 5.77 (1.56-6.13) x10^3/uL Basophils # 0.08 (0.01-0.08) x10^3/uL Sodium (135-145) mmol/L Potassium (3.5-5.1) mmol/L Chloride (98-107) mmol/L Carbon Dioxide (22-30) mmol/L Anion Gap (5-15) MEQ/L BUN (7-17) mg/dL Creatinine (0.52-1.04) mg/dL Estimated GFR ML/MIN Glucose (74-106) mg/dL POC Glucometer 142 H 218 H (74 to 106) mg/dL Calcium (8.4-10.2) mg/dL Iron (37-170) ug/dL TIBC (265-462) ug/dL Iron Saturation (20-39) % Ferritin (11.1-264) ng/mL Total Bilirubin (0.2-1.3) mg/dL AST (14-36) U/L ALT (0-35) U/L Alkaline Phosphatase (38-126) U/L Serum Total Protein (6.3-8.2) g/dL Albumin (3.5-5.0) g/dL Vitamin B12 (239-931) pg/mL Folic Acid (2.76 - >20) ng/mL 04/19/24 04/19/24 04/19/24 Range/Units 04:17 04:17 04:17 WBC (3.98-10.04) x10^3/uL RBC (3.93-5.22) x10^6/uL Hgb (11.2-15.7) g/dL Hct (34.1-44.9) % MCV (79.4-94.8) fL MCH (25.6-32.2) pg MCHC (32.2-35.5) g/dL RDW (11.7-14.4) % Plt Count (182-369) x10^3/uL MPV (9.4-12.3) fL Gran % (34.0-71.1) % Immature Gran % (Auto) (0.001-0.429) % Nucleat RBC Rel Count (0.00-0.2) % Eos # (Auto) (0.04-0.36) x10^3/uL Immature Gran # (Auto) (0.001-0.031) x10^3u/L Absolute Lymphs (auto) (1.18-3.74) x10^3/uL Absolute Monos (auto) (0.24-0.86) x10^3/uL Absolute Nucleated RBC (0.00-0.012) x10^3u/L Lymphocytes % (19.3-51.7) % Monocytes % (4.7-12.5) % Eosinophils % (0.7-5.8) % Basophils % (0.1-1.2) % Absolute Granulocytes (1.56-6.13) x10^3/uL Basophils # (0.01-0.08) x10^3/uL Sodium 133 L (135-145) mmol/L Potassium 4.0 (3.5-5.1) mmol/L Chloride 101 (98-107) mmol/L Carbon Dioxide 27 (22-30) mmol/L Anion Gap 9.6 (5-15) MEQ/L BUN 40 H (7-17) mg/dL Creatinine 2.89 H (0.52-1.04) mg/dL Estimated GFR 15.6 ML/MIN Glucose 95 (74-106) mg/dL POC Glucometer (74 to 106) mg/dL Calcium 9.2 (8.4-10.2) mg/dL Iron 42 (37-170) ug/dL TIBC 225 L (265-462) ug/dL Iron Saturation 19 L (20-39) % Ferritin 36.1 (11.1-264) ng/mL Total Bilirubin 0.30 (0.2-1.3) mg/dL AST 20 (14-36) U/L ALT 11 (0-35) U/L Alkaline Phosphatase 73 (38-126) U/L Serum Total Protein 6.1 L (6.3-8.2) g/dL Albumin 3.1 L (3.5-5.0) g/dL Vitamin B12 719 (239-931) pg/mL Folic Acid 11.7 (2.76 - >20) ng/mL 04/19/24 04/19/24 Range/Units 07:17 11:16 WBC (3.98-10.04) x10^3/uL RBC (3.93-5.22) x10^6/uL Hgb (11.2-15.7) g/dL Hct (34.1-44.9) % MCV (79.4-94.8) fL MCH (25.6-32.2) pg MCHC (32.2-35.5) g/dL RDW (11.7-14.4) % Plt Count (182-369) x10^3/uL MPV (9.4-12.3) fL Gran % (34.0-71.1) % Immature Gran % (Auto) (0.001-0.429) % Nucleat RBC Rel Count (0.00-0.2) % Eos # (Auto) (0.04-0.36) x10^3/uL Immature Gran # (Auto) (0.001-0.031) x10^3u/L Absolute Lymphs (auto) (1.18-3.74) x10^3/uL Absolute Monos (auto) (0.24-0.86) x10^3/uL Absolute Nucleated RBC (0.00-0.012) x10^3u/L Lymphocytes % (19.3-51.7) % Monocytes % (4.7-12.5) % Eosinophils % (0.7-5.8) % Basophils % (0.1-1.2) % Absolute Granulocytes (1.56-6.13) x10^3/uL Basophils # (0.01-0.08) x10^3/uL Sodium (135-145) mmol/L Potassium (3.5-5.1) mmol/L Chloride (98-107) mmol/L Carbon Dioxide (22-30) mmol/L Anion Gap (5-15) MEQ/L BUN (7-17) mg/dL Creatinine (0.52-1.04) mg/dL Estimated GFR ML/MIN Glucose (74-106) mg/dL POC Glucometer 100 165 H (74 to 106) mg/dL Calcium (8.4-10.2) mg/dL Iron (37-170) ug/dL TIBC (265-462) ug/dL Iron Saturation (20-39) % Ferritin (11.1-264) ng/mL Total Bilirubin (0.2-1.3) mg/dL AST (14-36) U/L ALT (0-35) U/L Alkaline Phosphatase (38-126) U/L Serum Total Protein (6.3-8.2) g/dL Albumin (3.5-5.0) g/dL Vitamin B12 (239-931) pg/mL Folic Acid (2.76 - >20) ng/mL Radiology Exams: Radiology Procedures Category Date Time Status CERVICAL SPINE WO CONTRAST [CT] Stat Exams 04/17/24 12:36 Completed CHEST 1 VIEW (PORTABLE) Stat Exams 04/17/24 12:36 Completed HEAD WITHOUT CONTRAST [CT] Stat Exams 04/17/24 12:36 Completed VENOUS BILATERAL EXTREMITY [US] Stat Exams 04/17/24 18:40 Completed Multi-Disciplinary Progress Notes: Multi-Disciplinary Progress Notes 04/19/24 10:17 Case Management Note by Gaby Ludwig S/Christina DAUGHTER, ISATU- THEY WOULD HAVE MET WITH BOTH [facility] AND [facility]. THEY HAVE DECIDED TO CHOOSE [facility] WITH THE HOPE OF CARING FOR PATIENT AT HOME AND KEEPING HER COMFORTABLE IN HER HOME ENVIRONMENT. PATIENT A&O- SHE IS AGREEABLE WITH THIS PLAN. FULL REFERRAL FAXED TO [facility]. ISATU REP ORTS THEY HAVE ALL THE MEDICAL EQUIPMENT AT HOME AND WOULD LIKE TO TRY TO TRANSPORT HER HOME BY PRIVATE VEHICLE. Initialized on 04/19/24 10:17 - END OF NOTE 04/18/24 17:11 Respiratory Note by Shadia Johnson PT WAS FINALLY ABLE TO TAKE MED Initialized on 04/18/24 17:11 - END OF NOTE 04/18/24 14:32 Case Management Note by Ginette Hardin SPOKE WITH PATIENT'S DAUGHTERS X 2 AT BEDSIDE. ISATU (DAUGHTER) REPORTS THAT THEY HAVE CALLED PERI AT [facility] WELL. THEY WOULD LIKE TO HAVE INFORMATION SESSIONS WITH BOTH [facility] AND [facility]. REPORTS THAT THEY WILL LET US KNOW WHAT THEY DECIDE ONCE THEY HAVE TIME TO DISCUSS. Initialized on 04/18/24 14:32 - END OF NOTE 04/18/24 11:57 Case Management Note by Gaby Ludwig S/Christina [facility]- ELIQUIS SHOULD BE COVERED AT $0 COPAY Initialized on 04/18/24 11:57 - END OF NOTE Assessment/Plan (1) Acute cystitis Current Visit: Yes Status: Acute Assessment & Plan: -recurrent with previous cultures with ecoli/ pansensitive klebsiella -Rocephin - follow cultures 04/19: -culture showing Klebsiella- sensitive to ceftriaxone - will continue Code(s): N30.00 - ACUTE CYSTITIS WITHOUT HEMATURIA (2) Encephalopathy due to metabolic factor or toxin Current Visit: Yes Status: Acute Assessment & Plan: -Most likely secondary to UTI/baseline dementia - improving but not at baseline Continue home Rexulti Add PRN Seroquel 25 mg q.6 hours PRN anxiety until we get her home Rexulti Hold home [place] 04/19: -now at baseline mentation, A&O x 3 - can resume home norco Code(s): [id number] - (3) DVT, bilateral lower limbs Current Visit: Yes Status: Acute Assessment & Plan: patient initially had Doppler ultrasound done because patient had D-dimer ordered in the ED which was found to be 2180. Unable to get CTA chest because of her renal function, but veins were noncompressible on both legs. Of note, patient is high risk because of her lack of mobility, prior history of VTE. She has some bleeding risk with her falls as well as reported history of easy bruisability and bleeding, although she has tolerated Eliquis in the past, according to her daughter for previous PE diagnosed 12 year ago. Eliquis was d/cd in May of 2023 Start Eliquis 10 mg p.o. BID x 7 days, then decrease to 5 mg p.o. BID - no need for renal dosing per pharm Has an indication for lifelong anticoagulation with her recurrent VTE, but this will need to be balanced against her fall risk and if she has worsening bruising or bleeding while on anticoagulation Code(s): I82.403 - ACUTE EMBOLISM AND THOMBOS UNSP DEEP VEINS OF LOW EXTRM, BI (4) CKD stage 4 due to type 2 diabetes mellitus Current Visit: Yes Status: Acute Assessment & Plan: -Baseline around 1.6 - at 2.89 today -monitor renal/lytes daily -avoid nephrotoxic medications - MATHEW/ARB/ NSAIDS -hold olmesartan, spironolactone and torsemide with worsening creat -IVF at 75ml/hr Code(s): E11.22 - TYPE 2 DIABETES MELLITUS W DIABETIC CHRONIC KIDNEY DISEASE; N18.4 - CHRONIC KIDNEY DISEASE, STAGE 4 (SEVERE) (5) HTN (hypertension) Current Visit: Yes Status: Acute Assessment & Plan: Continue home amlodipine 2.5, torsemide 20 BID, Coreg 6.25 BID,hydralazine 25 TID, Code(s): I10 - ESSENTIAL (PRIMARY) HYPERTENSION (6) Hypothyroid Current Visit: Yes Status: Acute Assessment & Plan: Continue home levothyroxine 200 mcg daily Code(s): N30.00 - ACUTE CYSTITIS WITHOUT HEMATURIA (2) Encephalopathy due to metabolic factor or toxin Current Visit: Yes Status: Acute Code(s): [id number] - (3) DVT, bilateral lower limbs Current Visit: Yes Status: Acute Code(s): I82.403 - ACUTE EMBOLISM AND THOMBOS UNSP DEEP VEINS OF LOW EXTRM, BI (4) CKD stage 4 due to type 2 diabetes mellitus Current Visit: Yes Status: Acute Code(s): E11.22 - TYPE 2 DIABETES MELLITUS W DIABETIC CHRONIC KIDNEY DISEASE; N18.4 - CHRONIC KIDNEY DISEASE, STAGE 4 (SEVERE) (5) HTN (hypertension) Current Visit: Yes Status: Acute Code(s): I10 - ESSENTIAL (PRIMARY) HYPERTENSION (6) Hypothyroid Current Visit: Yes Status: Acute Code(s): E03.9 - HYPOTHYROIDISM, UNSPECIFIED (7) Type 2 diabetes mellitus Current Visit: Yes Status: Acute
[2024-04-19 12:27] LABS: Absolute Neutrophil Ct (ANC) 6.76 x10^3/uL (1.56-6.13); BASOPHIL % 0.8 % (0.1-1.2); Basophil (Absolute #) 0.08 x10^3/uL (0.01-0.08); Eosinophil % 3.8 % (0.7-5.8); Hematocrit 26.3 % (34.1-44.9); Hemoglobin 8.2 g/dL (11.2-15.7); IMMATURE GRAN # 0.11 x10^3u/L (0.001-0.031); Lymphocyte (Absolute #) 2.61 x10^3/uL (1.18-3.74); Lymphocytes % 24.6 % (19.3-51.7); Mean Cell Volume 91.3 fL (79.4-94.8); Mean Corpuscular Hemoglobin 28.5 pg (25.6-32.2); Mean Corpuscular Hgb Concent. 31.2 g/dL (32.2-35.5); Mean Platelet Volume 8.7 fL (9.4-12.3); Monocyte (Absolute #) 0.63 x10^3/uL (0.24-0.86); Monocytes % 5.9 % (4.7-12.5); Neutrophil % 63.9 % (34.0-71.1); Platelet Count 247 x10^3/uL (182-369); Red Blood Count 2.88 x10^6/uL (3.93-5.22); Red Cell Distribution Width 16.1 % (11.7-14.4); White Blood Count 10.6 x10^3/uL (3.98-10.04)
[2024-04-19 12:43] LABS: ALBUMIN 3.2 g/dL (3.5-5.0); ANION GAP 8.9 MEQ/L (5-15); BILIRUBIN,TOTAL 0.3 mg/dL (0.2-1.3); Calcium 9.1 mg/dL (8.4-10.2); Creatinine 1 3.32 mg/dL (0.52-1.04); EST GLOMERULAR FILTRATION RATE 13.2 ML/MIN; Potassium 4.4 mmol/L (3.5-5.1); Total Protein 6.2 g/dL (6.3-8.2)
[2024-04-19 19:32] LABS: IFOB TEST RESULTS NEGATIVE (NEGATIVE)
[2024-04-19] MEDS: ELIQUIS 2.5 MG TABLET PO SCH (21:21)
[2024-04-20 04:52] LABS: Absolute Neutrophil Ct (ANC) 4.76 x10^3/uL (1.56-6.13); BASOPHIL % 0.8 % (0.1-1.2); Basophil (Absolute #) 0.07 x10^3/uL (0.01-0.08); Eosinophil % 4.8 % (0.7-5.8); Hematocrit 25.2 % (34.1-44.9); Hemoglobin 8.1 g/dL (11.2-15.7); IMMATURE GRAN # 0.09 x10^3u/L (0.001-0.031); IMMATURE GRAN % 1.1 % (0.001-0.429); Lymphocyte (Absolute #) 2.35 x10^3/uL (1.18-3.74); Lymphocytes % 28.3 % (19.3-51.7); Mean Cell Volume 89.7 fL (79.4-94.8); Mean Corpuscular Hemoglobin 28.8 pg (25.6-32.2); Mean Corpuscular Hgb Concent. 32.1 g/dL (32.2-35.5); Monocyte (Absolute #) 0.64 x10^3/uL (0.24-0.86); Monocytes % 7.7 % (4.7-12.5); Neutrophil % 57.3 % (34.0-71.1); Platelet Count 258 x10^3/uL (182-369); Red Blood Count 2.81 x10^6/uL (3.93-5.22); Red Cell Distribution Width 16.1 % (11.7-14.4); White Blood Count 8.3 x10^3/uL (3.98-10.04)
[2024-04-20 05:20] LABS: ANION GAP 10.7 MEQ/L (5-15); BILIRUBIN,TOTAL 0.3 mg/dL (0.2-1.3); Calcium 8.6 mg/dL (8.4-10.2); Creatinine 1 2.51 mg/dL (0.52-1.04); EST GLOMERULAR FILTRATION RATE 18.4 ML/MIN; Total Protein 6.1 g/dL (6.3-8.2)
--- NOTE | 2024-04-20 10:22 | XRAY ---
Indication: Acute kidney injury. Two-dimensional renal sonogram performed. Comparison: February 05, 2021 Again both kidneys are normal in reniform shape with normal color perfusion. Right kidney measures 10.8 x 5.0 x 5.3 cm and left measures 9.1 x 5.0 x 5.7 cm. Left lower renal exophytic benign cyst measures 2.4 x 1.8 x 2.0 cm, previously 1.3 x 1.4 x 1.6 cm. Right upper pole demonstrates new 1.3 x 1.6 x 1.4 cm benign cortical cyst. No focal solid renal mass or hydronephrosis. Corticomedullary differentiation preserved again with bilateral cortical thinning. Minimally distended urinary bladder (84 cc) again grossly unremarkable with new Rojo catheter in situ. Ureteral jets not seen within the allotted exam time. Impression: Bilateral benign-appearing renal cysts as detailed. Again chronic bilateral renal cortical thinning. Remaining renal sonogram negative.
--- NOTE | 2024-04-20 13:48 | PCM.NOTE ---
Date and Time: 04/20/24 1343 Subjective Assessment: 83 year old female with a pmhx of dementia, peripheral neuropathy, AFIB, HTN, DMII, hypothyroidism, DDD, and CKD who presented to [facility] 04/17/24 from [facility] with a one day history of falling and confusion. Head CT was negative for acute findings. CT cervical spine showing multilevel diffuse disc bulges seen causing ventral thecal sac indentation, bilateral neural foraminal narrowing, and varying degrees of spinal canal stenosis. Lab findings with mild leukocytosis with WBC at 11.8, mild hyponatremia with sodium at 132, creat at 1.81 (baseline 15-1.6), and Ucult with Klebsiella. Ddimer elevated at 2.18 - doppler confirmed bilateral leg DVT. Admitted with metabolic encephalopathy secondary to recurrent UTI and DVT. Plan for ceftriaxone, IVF, and eliquis. Mentation now at baseline. 04/18/24: Met with patient and daughter Shellie at bedside. Patient lethargic but arousable during interview. Poor sleep last night. She is able to state her name and date of . Daughter states mentation is not at baseline. U-cult with gram - ID. Plan to continue ceftriaxone. Discussed DVT. Patient does have a h/o PE 12 years ago, she was on Eliquis until May of 2023. Will start Eliquis today, per pharm no need to renal dose. 04/19/24 Patient A&O x 3 today. Much more alert, at baseline mentation per daughter Amanda. Endorses back pain which is chronic, will resume her home pain regimen. Discussed Ucult with patient, ceftriaxone is good coverage, will continue. Kidney function is worsening, will continue IVF. Plan is to discharge home with hospice once kidney function is at baseline. Denies fever,cough, sob, cp, abdominal pain, BOYD, dizziness, N/V/D. 04/20/24: Patient at baseline today, A&O x 3. Endorses continued chronic back pain and LUE edema (secondary to fall at [place]). Will xray the left arm today. Kidney function is improving and at baseline per nephrology. Patient no longer wishes to discharge on hospice but rather [facility]. Most likely can discharge in the morning on oral abx. Patient and family agreeable to plan. - Review of Systems Constitutional: No Symptoms Eyes: No Symptoms Ears, Nose, & Throat: No Symptoms Respiratory: No Symptoms Cardiac: No Symptoms Abdominal/Gastrointestinal: No Symptoms Genitourinary Symptoms: No Symptoms Musculoskeletal: Back Pain Neurological: No Symptoms Psychological: No Symptoms Endocrine: No Symptoms Hematologic/Lymphatic: No Symptoms Objective Exam General Appearance: no apparent distress, cachetic Neurologic Exam: alert, oriented x 3 Skin Exam: other (LUE with edema/ecchymosis in various stages of healing/ some wheeping - s/p fall at [facility]) Wound Assessment: Skin/Wound Assessment Wound/Incision Assessment Start: 04/17/24 22:18 Text: Status: Active Freq: Q6H Protocol: Document 04/20/24 08:00 RB (Rec: 04/20/24 08:19 RB [id number]) Wound/Incision Assessment Medial Coccyx Wound Assessment Shift Assessment Wound Type Pressure Ulcer Wound Stage Stage II Dressing Status Dry & Intact Drainage Amount Moderate Drainage Description Sanguineous Drainage Odor None/Absent General Appearance Bleeding Wound Bed Greatest Portion Red (Granulation) Wound Bed Lesser Portion Red (Granulation) Primary Dressing mepilex and mepilex lite Comment DRESSIGN CDI Wound Photo Photo Taken Yes Eye Exam: PERRL Ears, Nose, Throat Exam: normal ENT inspection Neck Exam: normal inspection Respiratory Exam: normal breath sounds, lungs clear Cardiovascular Exam: regular rate/rhythm, normal heart sounds Gastrointestinal/Abdomen Exam: soft, normal bowel sounds Extremity Exam: swelling (LUE), other (see skin) Back Exam: normal inspection Pelvic Exam: deferred, other (FC) Rectal Exam: deferred Objective Data Vital Signs: Vital Signs - 24 hr Temp Pulse Resp BP Pulse Ox 04/20/24 11:00 97.9 F 77 16 112/52 92 L 04/20/24 07:11 80 18 94 L 04/20/24 07:00 97.9 F 68 16 133/58 92 L 04/20/24 03:00 97.9 F 81 17 101/53 94 L 04/19/24 23:00 76 04/19/24 19:25 95 H 16 95 04/19/24 19:00 97.5 F 96 H 18 118/56 95 04/19/24 15:00 98.6 F 83 23 114/44 97 Pain Assessment - Last Documented Pain Intensity 3 Pain Scale Used 0-10 Pain Scale Intake and Output: Intake & Output 06/10/04/19/24 04/20/24 04/21/24 11:59 11:59 11:59 11:59 Intake Total 240 2341 Output Total 450 450 950 Balance -450 -210 1391 Weight 85.9 kg Lab Results: Lab Results-Last 24 Hours 04/19/24 04/19/24 04/19/24 Range/Units 16:26 19:21 20:39 WBC (3.98-10.04) x10^3/uL RBC (3.93-5.22) x10^6/uL Hgb (11.2-15.7) g/dL Hct (34.1-44.9) % MCV (79.4-94.8) fL MCH (25.6-32.2) pg MCHC (32.2-35.5) g/dL RDW (11.7-14.4) % Plt Count (182-369) x10^3/uL MPV (9.4-12.3) fL Gran % (34.0-71.1) % Immature Gran % (Auto) (0.001-0.429) % Nucleat RBC Rel Count (0.00-0.2) % Eos # (Auto) (0.04-0.36) x10^3/uL Immature Gran # (Auto) (0.001-0.031) x10^3u/L Absolute Lymphs (auto) (1.18-3.74) x10^3/uL Absolute Monos (auto) (0.24-0.86) x10^3/uL Absolute Nucleated RBC (0.00-0.012) x10^3u/L Lymphocytes % (19.3-51.7) % Monocytes % (4.7-12.5) % Eosinophils % (0.7-5.8) % Basophils % (0.1-1.2) % Absolute Granulocytes (1.56-6.13) x10^3/uL Basophils # (0.01-0.08) x10^3/uL Sodium (135-145) mmol/L Potassium (3.5-5.1) mmol/L Chloride (98-107) mmol/L Carbon Dioxide (22-30) mmol/L Anion Gap (5-15) MEQ/L BUN (7-17) mg/dL Creatinine (0.52-1.04) mg/dL Estimated GFR ML/MIN Glucose (74-106) mg/dL POC Glucometer 106 181 H (74 to 106) mg/dL Calcium (8.4-10.2) mg/dL Total Bilirubin (0.2-1.3) mg/dL AST (14-36) U/L ALT (0-35) U/L Alkaline Phosphatase (38-126) U/L Serum Total Protein (6.3-8.2) g/dL Albumin (3.5-5.0) g/dL Stl Occult Blood (IFOB) NEGATIVE (NEGATIVE) 04/20/24 04/20/24 04/20/24 Range/Units 04:35 04:35 07:13 WBC 8.3 (3.98-10.04) x10^3/uL RBC 2.81 L (3.93-5.22) x10^6/uL Hgb 8.1 L (11.2-15.7) g/dL Hct 25.2 L (34.1-44.9) % MCV 89.7 (79.4-94.8) fL MCH 28.8 (25.6-32.2) pg MCHC 32.1 L (32.2-35.5) g/dL RDW 16.1 H (11.7-14.4) % Plt Count 258 (182-369) x10^3/uL MPV 9.0 L (9.4-12.3) fL Gran % 57.3 (34.0-71.1) % Immature Gran % (Auto) 1.1 H (0.001-0.429) % Nucleat RBC Rel Count 0.0 (0.00-0.2) % Eos # (Auto) 0.40 H (0.04-0.36) x10^3/uL Immature Gran # (Auto) 0.09 H (0.001-0.031) x10^3u/L Absolute Lymphs (auto) 2.35 (1.18-3.74) x10^3/uL Absolute Monos (auto) 0.64 (0.24-0.86) x10^3/uL Absolute Nucleated RBC 0.00 (0.00-0.012) x10^3u/L Lymphocytes % 28.3 (19.3-51.7) % Monocytes % 7.7 (4.7-12.5) % Eosinophils % 4.8 (0.7-5.8) % Basophils % 0.8 (0.1-1.2) % Absolute Granulocytes 4.76 (1.56-6.13) x10^3/uL Basophils # 0.07 (0.01-0.08) x10^3/uL Sodium 132 L (135-145) mmol/L Potassium 4.0 (3.5-5.1) mmol/L Chloride 100 (98-107) mmol/L Carbon Dioxide 25 (22-30) mmol/L Anion Gap 10.7 (5-15) MEQ/L BUN 36 H (7-17) mg/dL Creatinine 2.51 H (0.52-1.04) mg/dL Estimated GFR 18.4 ML/MIN Glucose 112 H (74-106) mg/dL POC Glucometer 104 (74 to 106) mg/dL Calcium 8.6 (8.4-10.2) mg/dL Total Bilirubin 0.30 (0.2-1.3) mg/dL AST 20 (14-36) U/L ALT 10 (0-35) U/L Alkaline Phosphatase 70 (38-126) U/L Serum Total Protein 6.1 L (6.3-8.2) g/dL Albumin 3.0 L (3.5-5.0) g/dL Stl Occult Blood (IFOB) (NEGATIVE) 04/20/24 Range/Units 11:38 WBC (3.98-10.04) x10^3/uL RBC (3.93-5.22) x10^6/uL Hgb (11.2-15.7) g/dL Hct (34.1-44.9) % MCV (79.4-94.8) fL MCH (25.6-32.2) pg MCHC (32.2-35.5) g/dL RDW (11.7-14.4) % Plt Count (182-369) x10^3/uL MPV (9.4-12.3) fL Gran % (34.0-71.1) % Immature Gran % (Auto) (0.001-0.429) % Nucleat RBC Rel Count (0.00-0.2) % Eos # (Auto) (0.04-0.36) x10^3/uL Immature Gran # (Auto) (0.001-0.031) x10^3u/L Absolute Lymphs (auto) (1.18-3.74) x10^3/uL Absolute Monos (auto) (0.24-0.86) x10^3/uL Absolute Nucleated RBC (0.00-0.012) x10^3u/L Lymphocytes % (19.3-51.7) % Monocytes % (4.7-12.5) % Eosinophils % (0.7-5.8) % Basophils % (0.1-1.2) % Absolute Granulocytes (1.56-6.13) x10^3/uL Basophils # (0.01-0.08) x10^3/uL Sodium (135-145) mmol/L Potassium (3.5-5.1) mmol/L Chloride (98-107) mmol/L Carbon Dioxide (22-30) mmol/L Anion Gap (5-15) MEQ/L BUN (7-17) mg/dL Creatinine (0.52-1.04) mg/dL Estimated GFR ML/MIN Glucose (74-106) mg/dL POC Glucometer 210 H (74 to 106) mg/dL Calcium (8.4-10.2) mg/dL Total Bilirubin (0.2-1.3) mg/dL AST (14-36) U/L ALT (0-35) U/L Alkaline Phosphatase (38-126) U/L Serum Total Protein (6.3-8.2) g/dL Albumin (3.5-5.0) g/dL Stl Occult Blood (IFOB) (NEGATIVE) Radiology Exams: Radiology Procedures Category Date Time Status FOREARM Urgent Exams 04/20/24 13:06 Ordered HAND (2 VIEW) Urgent Exams 04/20/24 13:06 Ordered HUMERUS Urgent Exams 04/20/24 13:06 Ordered KIDNEY [US] Stat Exams 04/20/24 01:00 Completed Multi-Disciplinary Progress Notes: Multi-Disciplinary Progress Notes 04/20/24 13:03 Case Management Note by Gaby Ludwig REFERRAL FAXED TO [facility]. THEY ARE ACCEPTING PATIENT. THEY WILL NEED NOTIFIED AT TIME OF DC AT [phone]. THEY WILL NEED FAXED THE DC INSTRUCTIO PAUL, DYLON WILKS LIST AND DC SUMMARY TO [phone] OR [phone] Initialized on 04/20/24 13:03 - END OF NOTE 04/20/24 11:00 (created 04/20/24 13:00) Case Management Note by Gaby Ludwig S/W PATIENT AND HER DAUGHTER THEY REPORT THEY HAVE CHANGED THEIR MINDS AND WOULD LIKE PATIENT TO DC HOME WITH [facility]- NOT HOSPICE. THEY REPORT THEY WERE "TRICKED" BY THE HOSPICE REPS THAT CAME IN TO SEE HER. THEY REPORT THEY DISCUSSED IT WITH PATIENT LAST EVENING AND PATIENT DOES NOT WANT HOSPICE. PATIENT A&O TODAY- SHE AGAIN STATES SHE WANTS ADRIANE NARVAEZ WITH [facility] BUT DOES NOT WANT HOSPICE. FAMILY REPORTS THEY HAVE ALL THE MEDICAL EQUIPMENT NEEDED AT HOME. THEY DO NOT WANT PATIENT TO HAVE PHYSICAL THERAPY AT HOME. CAMILA QUIÑONEZ [employer] CALLED THIS AM- THEY ARE AWARE AND WILL LET [facility] KNOW. Initialized on 04/20/24 13:00 - END OF NOTE Assessment/Plan (1) Acute cystitis Current Visit: Yes Status: Acute Assessment & Plan: -recurrent with previous cultures with ecoli/ pansensitive klebsiella -Rocephin - follow cultures 04/19: -culture showing Klebsiella- sensitive to ceftriaxone - will continue 04/20: -ucult with klebsiella and streptococus agalactiae - sensitive to ceftriaxone, will continue Code(s): N30.00 - ACUTE CYSTITIS WITHOUT HEMATURIA (2) Encephalopathy due to metabolic factor or toxin Current Visit: Yes Status: Acute Assessment & Plan: -Most likely secondary to UTI/baseline dementia - improving but not at baseline Continue home Rexulti Add PRN Seroquel 25 mg q.6 hours PRN anxiety until we get her home Rexulti Hold home [place] 04/19: -now at baseline mentation, A&O x 3 - can resume home norco Code(s): [id number] - (3) DVT, bilateral lower limbs Current Visit: Yes Status: Acute Assessment & Plan: patient initially had Doppler ultrasound done because patient had D-dimer ordered in the ED which was found to be 2180. Unable to get CTA chest because of her renal function, but veins were noncompressible on both legs. Of note, patient is high risk because of her lack of mobility, prior history of VTE. She has some bleeding risk with her falls as well as reported history of easy bruisability and bleeding, although she has tolerated Eliquis in the past, according to her daughter for previous PE diagnosed 12 year ago. Eliquis was d/cd in May of 2023 Start Eliquis 10 mg p.o. BID x 7 days, then decrease to 5 mg p.o. BID - no need for renal dosing per pharm Has an indication for lifelong anticoagulation with her recurrent VTE, but this will need to be balanced against her fall risk and if she has worsening bruising or bleeding while on anticoagulation 04/20: -Eliquis renally dosed at 5mg bid Code(s): I82.403 - ACUTE EMBOLISM AND THOMBOS UNSP DEEP VEINS OF LOW EXTRM, BI (4) CKD stage 4 due to type 2 diabetes mellitus Current Visit: Yes Status: Acute Assessment & Plan: -Baseline around 1.6 - at 2.89 today -monitor renal/lytes daily -avoid nephrotoxic medications - MATHEW/ARB/ NSAIDS -hold olmesartan, spironolactone and torsemide with worsening creat -IVF at 75ml/hr Code(s): E11.22 - TYPE 2 DIABETES MELLITUS W DIABETIC CHRONIC KIDNEY DISEASE; N18.4 - CHRONIC KIDNEY DISEASE, STAGE 4 (SEVERE) (5) HTN (hypertension) Current Visit: Yes Status: Acute Assessment & Plan: Continue home amlodipine 2.5, torsemide 20 BID, Coreg 6.25 BID,hydralazine 25 TID, Code(s): I10 - ESSENTIAL (PRIMARY) HYPERTENSION (6) Hypothyroid Current Visit: Yes Status: Acute Assessment & Plan: Continue home levothyroxine 200 mcg daily Code(s): N30.00 - ACUTE CYSTITIS WITHOUT HEMATURIA (2) Encephalopathy due to metabolic factor or toxin Current Visit: Yes Status: Acute Code(s): [id number] - (3) DVT, bilateral lower limbs Current Visit: Yes Status: Acute Code(s): I82.403 - ACUTE EMBOLISM AND THOMBOS UNSP DEEP VEINS OF LOW EXTRM, BI (4) CKD stage 4 due to type 2 diabetes mellitus Current Visit: Yes Status: Acute Code(s): E11.22 - TYPE 2 DIABETES MELLITUS W DIABETIC CHRONIC KIDNEY DISEASE; N18.4 - CHRONIC KIDNEY DISEASE, STAGE 4 (SEVERE) (5) HTN (hypertension) Current Visit: Yes Status: Acute Code(s): I10 - ESSENTIAL (PRIMARY) HYPERTENSION (6) Hypothyroid Current Visit: Yes Status: Acute Code(s): E03.9 - HYPOTHYROIDISM, UNSPECIFIED (7) Type 2 diabetes mellitus Current Visit: Yes Status: Acute
--- NOTE | 2024-04-20 14:03 | XRAY ---
Indication: Pain following fall. Comparison: None 2 view left humerus demonstrates osteopenia, mild acromioclavicular degenerative changes, and extensive scattered vascular calcifications. Query inferior subluxed humeral head versus projection artifact. No other bony, articular, or soft tissue abnormalities.
--- NOTE | 2024-04-20 14:03 | XRAY ---
Indication: Pain following fall. Comparison: None 2 view left forearm demonstrates osteopenia and extensive scattered vascular calcifications. No other bony, articular, or soft tissue abnormalities. Hand reported separately.
--- NOTE | 2024-04-20 14:05 | XRAY ---
Indication: Pain following fall. Comparison: None 3 view left hand demonstrates osteopenia, minimal/mild degenerative changes all IP/MCP joints, advance/moderate degenerative changes 1st metacarpal multangular scaphoid articulation with heterotopic ossification, radiocarpal joint space narrowing, ulnar carpal degenerative chondrocalcinosis, and extensive scattered vascular calcifications. No other bony, articular, or soft tissue abnormalities.
[2024-04-20 19:21] VITALS: RESP 18
[2024-04-21 04:45] LABS: Absolute Neutrophil Ct (ANC) 4.98 x10^3/uL (1.56-6.13); BASOPHIL % 0.6 % (0.1-1.2); Basophil (Absolute #) 0.05 x10^3/uL (0.01-0.08); Eosinophil % 4.3 % (0.7-5.8); Eosinophil (Absolute #) 0.34 x10^3/uL (0.04-0.36); Hematocrit 25.8 % (34.1-44.9); Hemoglobin 8.2 g/dL (11.2-15.7); IMMATURE GRAN % 1.3 % (0.001-0.429); Lymphocyte (Absolute #) 1.84 x10^3/uL (1.18-3.74); Lymphocytes % 23.3 % (19.3-51.7); Mean Cell Volume 89.9 fL (79.4-94.8); Mean Corpuscular Hemoglobin 28.6 pg (25.6-32.2); Mean Corpuscular Hgb Concent. 31.8 g/dL (32.2-35.5); Mean Platelet Volume 8.4 fL (9.4-12.3); Monocyte (Absolute #) 0.59 x10^3/uL (0.24-0.86); Monocytes % 7.5 % (4.7-12.5); Platelet Count 218 x10^3/uL (182-369); Red Blood Count 2.87 x10^6/uL (3.93-5.22); Red Cell Distribution Width 16.1 % (11.7-14.4); White Blood Count 7.9 x10^3/uL (3.98-10.04)
[2024-04-21 05:01] LABS: ANION GAP 9.3 MEQ/L (5-15); BILIRUBIN,TOTAL 0.3 mg/dL (0.2-1.3); Calcium 8.8 mg/dL (8.4-10.2); Creatinine 1 1.91 mg/dL (0.52-1.04); EST GLOMERULAR FILTRATION RATE 25.6 ML/MIN; Potassium 4.3 mmol/L (3.5-5.1); Total Protein 6.1 g/dL (6.3-8.2)
[2024-04-21 11:23] VITALS: BP 92/45; PULSE 71; TEMP 98; O2SAT 99
--- NOTE | 2024-04-21 12:28 | PCM.DS ---
Discharge Summary Date of Admission: 04/17/24 19:59 Date of Discharge: 04/21/24 Admitting Physician: MAR DEXTER MD Primary Care Provider: [facility] Allergies Allergies amoxicillin Allergy (Verified 03/30/24 16:02) levofloxacin [From Levaquin] Allergy (Verified 03/30/24 16:02) ofloxacin [From Floxin] Allergy (Verified 03/30/24 16:02) Sulfa (Sulfonamide Antibiotics) [Sulfa(Sulfonamide Antibiotics)] Allergy (Verified 03/30/24 16:02) adhesive tape Adverse Reaction (Verified 03/30/24 21:58) Hospital Summary - Hospital Course Hospital Course: 83 year old female with a pmhx of dementia, peripheral neuropathy, AFIB, HTN, DMII, hypothyroidism, DDD, and CKD who presented to [facility] ED 04/17/24 from [facility] with a one day history of falling and confusion. Head CT was negative for acute findings. CT cervical spine showing multilevel diffuse disc bulges seen causing ventral thecal sac indentation, bilateral neural foraminal narrowing, and varying degrees of spinal canal stenosis. Lab findings with mild leukocytosis with WBC at 11.8, mild hyponatremia with sodium at 132, creat at 1.81 (baseline 15-1.6), and Ucult with Klebsiella/strep agalactiae. Ddimer elevated at 2.18 -doppler confirmed bilateral leg DVT- eliquis started. Admit tonie with metabolic encephalopathy secondary to recurrent UTI and DVT.IP treatment ceftriaxone (sensitive), IVF, and eliquis. Mentation now at baseline. Labs are now at baseline. Will discharge patient home with [facility] on cefuroxime. Discharge Note New Diagnosis: UTI New Medications: Cefuroxime Follow Up: pcp/nephrology Latest Assessment & Plan (1) Acute cystitis Current Visit: Yes Status: Acute Assessment & Plan: -recurrent with previous cultures with ecoli/ pansensitive klebsiella -Rocephin - follow cultures 04/19: -culture showing Klebsiella- sensitive to ceftriaxone - will continue 04/20: -ucult with klebsiella and streptococus agalactiae - sensitive to ceftriaxone, will continue 04/21: -will send home on cefuroxime x 1 week Code(s): N30.00 - ACUTE CYSTITIS WITHOUT HEMATURIA (2) Encephalopathy due to metabolic factor or toxin Current Visit: Yes Status: Acute Assessment & Plan: -Most likely secondary to UTI/baseline dementia - improving but not at baseline Continue home Rexulti Add PRN Seroquel 25 mg q.6 hours PRN anxiety until we get her home Rexulti Hold home [place] 04/19: -now at baseline mentation, A&O x 3 - can resume home norco Code(s): CSW2714 - (3) DVT, bilateral lower limbs Current Visit: Yes Status: Acute Assessment & Plan: patient initially had Doppler ultrasound done because patient had D-dimer ordered in the ED which was found to be 2180. Unable to get CTA chest because of her renal function, but veins were noncompressible on both legs. Of note, patient is high risk because of her lack of mobility, prior history of VTE. She has some bleeding risk with her falls as well as reported history of easy bruisability and bleeding, although she has tolerated Eliquis in the past, according to her daughter for previous PE diagnosed 12 year ago. Eliquis was d/cd in May of 2023 Start Eliquis 10 mg p.o. BID x 7 days, then decrease to 5 mg p.o. BID - no need for renal dosing per pharm Has an indication for lifelong anticoagulation with her recurrent VTE, but this will need to be balanced against her fall risk and if she has worsening bruising or bleeding while on anticoagulation 04/20: -Eliquis renally dosed at 5mg bid 04/21: -continue eliquis Code(s): I82.403 - ACUTE EMBOLISM AND THOMBOS UNSP DEEP VEINS OF LOW EXTRM, BI (4) CKD stage 4 due to type 2 diabetes mellitus Current Visit: Yes Status: Acute Assessment & Plan: -Baseline around 1.6 - at 2.89 today -monitor renal/lytes daily -avoid nephrotoxic medications - MATHEW/ARB/ NSAIDS -hold olmesartan, spironolactone and torsemide with worsening creat -IVF at 75ml/hr 04/21: -at baseline, advised close follow up with nephrology Code(s): E11.22 - TYPE 2 DIABETES MELLITUS W DIABETIC CHRONIC KIDNEY DISEASE; N18.4 - CHRONIC KIDNEY DISEASE, STAGE 4 (SEVERE) (5) HTN (hypertension) Current Visit: Yes Status: Acute Assessment & Plan: Continue home amlodipine 2.5, torsemide 20 BID, Coreg 6.25 BID,hydralazine 25 TID, Code(s): I10 - ESSENTIAL (PRIMARY) HYPERTENSION (6) Hypothyroid Current Visit: Yes Status: Acute Assessment & Plan: Continue home levothyroxine 200 mcg daily Code(s): N30.00 - ACUTE CYSTITIS WITHOUT HEMATURIA I spent 35 minutes [id number] with the patient on the day of discharge performing discharge exam, discussing hospital stay and discharge instructions with patient and caregivers, preparation of discharge records, prescriptions & referral forms and addressing any questions/concerns the patient had as documented above. - Vitals & Intake/Output Vital Signs: Vital Signs Temperature 98 F 04/21/24 11:00 Pulse Rate 71 04/21/24 11:00 Respiratory Rate 18 04/21/24 11:00 Blood Pressure 92/45 04/21/24 11:00 O2 Sat by Pulse Oximetry 99 04/21/24 11:00 Intake & Output: Intake & Output 04/19/24 04/20/24 04/21/24 04/22/24 11:59 11:59 11:59 11:59 Intake Total 240 2341 1711 Output Total 064 546 6442 Balance -210 1391 711 - Lab Result Diagrams: 04/21/24 04:35 04/21/24 04:35 Lab Results-Last 24 Hrs: Lab Results-Last 24 Hours 04/20/24 04/20/24 04/21/24 Range/Units 16:23 20:50 04:35 WBC 7.9 (3.98-10.04) x10^3/uL RBC 2.87 L (3.93-5.22) x10^6/uL Hgb 8.2 L (11.2-15.7) g/dL Hct 25.8 L (34.1-44.9) % MCV 89.9 (79.4-94.8) fL MCH 28.6 (25.6-32.2) pg MCHC 31.8 L (32.2-35.5) g/dL RDW 16.1 H (11.7-14.4) % Plt Count 218 (182-369) x10^3/uL MPV 8.4 L (9.4-12.3) fL Gran % 63.0 (34.0-71.1) % Immature Gran % (Auto) 1.3 H (0.001-0.429) % Nucleat RBC Rel Count 0.0 (0.00-0.2) % Eos # (Auto) 0.34 (0.04-0.36) x10^3/uL Immature Gran # (Auto) 0.10 H (0.001-0.031) x10^3u/L Absolute Lymphs (auto) 1.84 (1.18-3.74) x10^3/uL Absolute Monos (auto) 0.59 (0.24-0.86) x10^3/uL Absolute Nucleated RBC 0.00 (0.00-0.012) x10^3u/L Lymphocytes % 23.3 (19.3-51.7) % Monocytes % 7.5 (4.7-12.5) % Eosinophils % 4.3 (0.7-5.8) % Basophils % 0.6 (0.1-1.2) % Absolute Granulocytes 4.98 (1.56-6.13) x10^3/uL Basophils # 0.05 (0.01-0.08) x10^3/uL Sodium (135-145) mmol/L Potassium (3.5-5.1) mmol/L Chloride (98-107) mmol/L Carbon Dioxide (22-30) mmol/L Anion Gap (5-15) MEQ/L BUN (7-17) mg/dL Creatinine (0.52-1.04) mg/dL Estimated GFR ML/MIN Glucose (74-106) mg/dL POC Glucometer 140 H 160 H (74 to 106) mg/dL Calcium (8.4-10.2) mg/dL Total Bilirubin (0.2-1.3) mg/dL AST (14-36) U/L ALT (0-35) U/L Alkaline Phosphatase (38-126) U/L Serum Total Protein (6.3-8.2) g/dL Albumin (3.5-5.0) g/dL 04/21/24 04/21/24 04/21/24 Range/Units 04:35 07:19 11:04 WBC (3.98-10.04) x10^3/uL RBC (3.93-5.22) x10^6/uL Hgb (11.2-15.7) g/dL Hct (34.1-44.9) % MCV (79.4-94.8) fL MCH (25.6-32.2) pg MCHC (32.2-35.5) g/dL RDW (11.7-14.4) % Plt Count (182-369) x10^3/uL MPV (9.4-12.3) fL Gran % (34.0-71.1) % Immature Gran % (Auto) (0.001-0.429) % Nucleat RBC Rel Count (0.00-0.2) % Eos # (Auto) (0.04-0.36) x10^3/uL Immature Gran # (Auto) (0.001-0.031) x10^3u/L Absolute Lymphs (auto) (1.18-3.74) x10^3/uL Absolute Monos (auto) (0.24-0.86) x10^3/uL Absolute Nucleated RBC (0.00-0.012) x10^3u/L Lymphocytes % (19.3-51.7) % Monocytes % (4.7-12.5) % Eosinophils % (0.7-5.8) % Basophils % (0.1-1.2) % Absolute Granulocytes (1.56-6.13) x10^3/uL Basophils # (0.01-0.08) x10^3/uL Sodium 134 L (135-145) mmol/L Potassium 4.3 (3.5-5.1) mmol/L Chloride 103 (98-107) mmol/L Carbon Dioxide 25 (22-30) mmol/L Anion Gap 9.3 (5-15) MEQ/L BUN 32 H (7-17) mg/dL Creatinine 1.91 H (0.52-1.04) mg/dL Estimated GFR 25.6 ML/MIN Glucose 133 H (74-106) mg/dL POC Glucometer 121 H 146 H (74 to 106) mg/dL Calcium 8.8 (8.4-10.2) mg/dL Total Bilirubin 0.30 (0.2-1.3) mg/dL AST 17 (14-36) U/L ALT 10 (0-35) U/L Alkaline Phosphatase 73 (38-126) U/L Serum Total Protein 6.1 L (6.3-8.2) g/dL Albumin 3.0 L (3.5-5.0) g/dL Micro Results-Entire Visit: Microbiology 04/17/24 11:52 Urine Culture - Final Catherized Klebsiella Pneumoniae Streptococcus Agalactiae Accuchecks Date 04/21/24 Date 04/21/24 Date 04/20/24 Date 04/20/24 Time 11:23 Time 07:34 Time 21:00 - Radiology Exams Ordered Rad Exams-Entire Visit: Radiology Procedures Category Date Time Status FOREARM Urgent Exams 04/20/24 13:06 Completed HAND (MINIMUM 3 VIEWS) Urgent Exams 04/20/24 13:06 Completed HUMERUS Urgent Exams 04/20/24 13:06 Completed KIDNEY [US] Stat Exams 04/20/24 01:00 Completed - Procedures and Test Procedures and Tests throughout Hospitalization: Therapy Orders & Screens 04/17/24 20:11 Respiratory Therapy Consult ONCE Comment: Reason For Exam: 04/18/24 08:01 Respiratory Therapy Assessment DAILY Comment: Diagnosis: confusion 04/19/24 07:58 Respiratory MDI UD Comment: QAM Diagnosis: confusion Discharge Exam General Appearance: no apparent distress Neurologic Exam: alert, oriented x 3 Eye Exam: PERRL Ears, Nose, Throat Exam: normal ENT inspection Neck Exam: normal inspection Respiratory Exam: normal breath sounds, lungs clear Cardiovascular Exam: regular rate/rhythm, normal heart sounds Gastrointestinal/Abdomen Exam: soft, normal bowel sounds Pelvic Exam: deferred Rectal Exam: deferred Back Exam: normal inspection Extremity Exam: swelling (LUE due to injury) Skin Exam: pale Wound Assessment: Skin/Wound Assessment Wound/Incision Assessment Start: 04/17/24 22:18 Text: Status: Active Freq: Q6H Protocol: Document 04/21/24 08:00 RB (Rec: 04/21/24 08:32 RB [id number]) Wound/Incision Assessment Medial Coccyx Wound Assessment Shift Assessment Wound Type Pressure Ulcer Wound Stage Stage II Dressing Status Dry & Intact Drainage Amount Moderate Drainage Description Sanguineous Drainage Odor None/Absent General Appearance Bleeding Wound Bed Greatest Portion Red (Granulation) Wound Bed Lesser Portion Red (Granulation) Primary Dressing mepilex and mepilex lite Comment DRESSIGN C/D/I, WILL CHANGE PRIOR FOR D/C Wound Photo Photo Taken Yes Final Diagnosis/Problem List - Final Discharge Diagnosis/Problem (1) Acute cystitis Current Visit: Yes Status: Acute Code(s): N30.00 - ACUTE CYSTITIS WITHOUT HEMATURIA (2) Encephalopathy due to metabolic factor or toxin Current Visit: Yes Status: Resolved Code(s): JRJ2153 - (3) DVT, bilateral lower limbs Current Visit: Yes Status: Chronic Code(s): I82.403 - ACUTE EMBOLISM AND THOMBOS UNSP DEEP VEINS OF LOW EXTRM, BI (4) CKD stage 4 due to type 2 diabetes mellitus Current Visit: Yes Status: Chronic Code(s): E11.22 - TYPE 2 DIABETES MELLITUS W DIABETIC CHRONIC KIDNEY DISEASE; N18.4 - CHRONIC KIDNEY DISEASE, STAGE 4 (SEVERE) (5) HTN (hypertension) Current Visit: Yes Status: Chronic Code(s): I10 - ESSENTIAL (PRIMARY) HYP ERTENSION (6) Hypothyroid Current Visit: Yes Status: Chronic Code(s): E03.9 - HYPOTHYROIDISM, UNSPECIFIED (7) Type 2 diabetes mellitus Current Visit: Yes Status: Chronic - Discharge Disposition: HOME HEALTH SERVICE Condition: Fair Prescriptions: New Cefuroxime Axetil [Cefuroxime] 250 mg PO BID PRN 10 Days #20 tablet Apixaban [Eliquis] 5 mg PO BID 30 Days #60 tablet Hydrocodone/Acetaminophen [Hydrocodone-Acetamin 5-325 mg] 1 tab PO Q4HPRN PRN 3 Days #18 tablet MDD 6 PRN Reason: Pain Continue Allopurinol 300 mg [Zyloprim 300 mg] 300 mg PO DAILY Torsemide 20 mg [Demadex 20 mg] 20 mg PO BID Spironolactone 25 mg [Aldactone 25 MG] 25 mg PO DAILY Isosorbide Mononitrate 30 mg [Imdur 30 MG] 30 mg PO DAILY Carvedilol [Coreg ] 6.25 mg PO BID HydrALAzine HCL 25 MG TAB [Apresoline 25 MG TABLET] 25 mg PO TID Ergocalciferol (Vitamin D2) [Vitamin D2] 50 mcg PO DAILY Ondansetron [Ondansetron Odt ] 4 mg PO Q8H PRN PRN PRN Reason: Nausea Amlodipine Besylate [Norvasc] 2.5 mg PO DAILY Olmesartan Medoxomil [Benicar] 10 mg PO DAILY Glimepiride 2 mg [Amaryl 2 MG] 2 mg PO DAILY Omeprazole 20 mg PO DAILY PRN PRN Reason: Heartburn Brexpiprazole [Rexulti] 2 mg PO DAILY Hydrocodone/Acetaminophen [Hydrocodone-Acetamin 7.5-325] 1 each PO Q6H PRN PRN Reason: Pain Nystatin Powder 15 gm [Nystop Powder 15 gm] 1 gm TP BID 14 Days #1 misc Levothyroxine Sodium 100 Mcg [Synthroid 100 Mcg] 200 mcg PO DAILY Saccharomyces Boulardii [Probiotic] 1 ea DAILY Fluticasone/Umeclidin/Vilanter [Trelegy Ellipta 100-62.5-25] 1 puff DAILY Additional Instructions: [facility] HAS BEEN [facility] AGAIN- THEY WILL CALL YOU TO ARRANGE A TIME TO COME SEE YOU WALKER WAS ORDERED THRU [facility]- THEY WILL DELIVER IT TO YOUR HOME- IF YOU NEED TO FOLLOW UP, YOU CAN CALL THEM AT [phone] Follow up with: MARIA M MARTINS [CONSULTING PHYSICIAN] - 04/25/24 4:00 pm (at [facility] ) TRINH MINAYA MD [ACTIVE STAFF] - 04/26/24 3:15 pm
== END 2024-04-21 13:40 | disposition home health service (06) ==
LOC: ED 11:20 → ICU 19:59 → MED SURG 04-18 17:17
PROVIDERS: ADMIT Internal Medicine; ATTEND Internal Medicine
DX: N30.00 Acute cystitis without hematuria (principal); G93.40 Encephalopathy, unspecified; I82.401 Acute embolism and thrombosis of unspecified deep veins of right lower extremity; I82.402 Acute embolism and thrombosis of unspecified deep veins of left lower extremity; E11.22 Type 2 diabetes mellitus with diabetic chronic kidney disease; I12.9 Hypertensive chronic kidney disease with stage 1 through stage 4 chronic kidney disease, or unspecified chronic kidney disease; N18.4 Chronic kidney disease, stage 4 (severe); B96.1 Klebsiella pneumoniae [K. pneumoniae] as the cause of diseases classified elsewhere; L89.152 Pressure ulcer of sacral region, stage 2; F03.90 Unspecified dementia, unspecified severity, without behavioral disturbance, psychotic disturbance, mood disturbance, and anxiety; W19.XXXA Unspecified fall, initial encounter; Z79.899 Other long term (current) drug therapy; Z86.711 Personal history of pulmonary embolism; Z85.828 Personal history of other malignant neoplasm of skin
CPT/HCPCS: 0241U; 36000; 36415; 70450; 71045; 72125; 73060; 73090; 73130; 76770; 80048; 80053; 81001; 82607; 82728; 82746; 82947; 83036; 83540; 83550; 83605; 83735; 83880; 84439; 84443; 84484; 85025; 85027; 85379; 85610; 85730; 87077; 87086; 87186; 93005; 93970; 94640; 94760; 96365; 99284; G0328; Q3014; 82274; 93268; J0696; J1817; Q0162; A9270-GY; G0378

== ENCOUNTER 2024-05-03 21:09 | Emergency (ER) | payer MEDICARE ==
[2024-05-03 21:37] VITALS: BP 187/88; PULSE 107; RESP 18; TEMP 97.8; O2SAT 95
--- NOTE | 2024-05-03 22:27 | ERPHSYRPT ---
- History of Present Illness Time Seen by Provider: 05/03/24 22:25 Source: patient Exam Limitations: no limitations Patient Subjective Stated Complaint: daughter states that pt has been having diarrhea like dishcarge from rectum, has had colostomy for almost 3 years Triage Nursing Assessment: pt alert, answers questions approp, very [place]. pt back to room per wheelchair and transfers to stretcher with assist of 3. pt able to step and pivot to bed. respirations nonlabored. skin warm and dry. colostomy to lt abd with soft stool present. bowel sounds present x4. no discharge noted from rectum at this time. pt has stage 2 wounds to bilat buttocks. Physician History: 83-year-old female presents to our ED as a referral from her primary care doctor for C. difficile colitis testing. Patient has a colostomy but also states that she has been experiencing some diarrhea discharge. Patient otherwise asymptomatic. No fever no abdominal pain no vomiting. Patient is completely asymptomatic. Daughter at bedside. They voiced no other complaints or concerns at this time. Portions of this note were created with voice recognition technology. There may be grammatical, spelling, punctuation or sound alike errors Timing/Duration: today Severity: moderate Modifying Factors: Improves With: nothing Associated Symptoms: denies symptoms Allergies/Adverse Reactions: amoxicillin Allergy (Verified 05/03/24 21:37) levofloxacin [From Levaquin] Allergy (Verified 05/03/24 21:37) ofloxacin [From Floxin] Allergy (Verified 05/03/24 21:37) Sulfa (Sulfonamide Antibiotics) [Sulfa(Sulfonamide Antibiotics)] Allergy (Verified 05/03/24 21:37) adhesive tape Adverse Reaction (Verified 05/03/24 21:37) Home Medications: Allopurinol 300 mg [Zyloprim 300 mg] 300 mg PO DAILY 11/30/16 [History] Carvedilol [Coreg ] 6.25 mg PO BID 03/18/24 [History] HydrALAzine HCL 25 MG TAB [Apresoline 25 MG TABLET] 25 mg PO TID 03/18/24 [History] Isosorbide Mononitrate 30 mg [Imdur 30 MG] 30 mg PO DAILY 03/18/24 [History] Spironolactone 25 mg [Aldactone 25 MG] 25 mg PO DAILY 03/18/24 [History] Torsemide 20 mg [Demadex 20 mg] 20 mg PO BID 03/18/24 [History] Amlodipine Besylate [Norvasc] 2.5 mg PO DAILY 03/30/24 [History] Brexpiprazole [Rexulti] 2 mg PO DAILY 03/30/24 [History] Ergocalciferol (Vitamin D2) [Vitamin D2] 50 mcg PO DAILY 03/30/24 [History] Glimepiride 2 mg [Amaryl 2 MG] 2 mg PO DAILY 03/30/24 [History] Hydrocodone/Acetaminophen [Hydrocodone-Acetamin 7.5-325] 1 each PO Q6H PRN 03/30/24 [History] Olmesartan Medoxomil [Benicar] 10 mg PO DAILY 03/30/24 [History] Omeprazole 20 mg PO DAILY PRN 03/30/24 [History] Ondansetron [Ondansetron Odt ] 4 mg PO Q8H PRN PRN 03/30/24 [History] Fluticasone/Umeclidin/Vilanter [Trelegy Ellipta 100-62.5-25] 1 puff DAILY 04/17/24 [History] Levothyroxine Sodium 100 Mcg [Synthroid 100 Mcg] 200 mcg PO DAILY 04/17/24 [History] Saccharomyces Boulardii [Probiotic] 1 ea DAILY 04/17/24 [History] Hx Tetanus, Diphtheria Vaccination/Date Given: Yes Hx Influenza Vaccination/Date Given: Yes Hx Pneumococcal Vaccination/Date Given: Yes Immunizations Up to Date: Yes Travel Risk - International Travel Have you traveled outside of the country in past 3 weeks: No - Emerging Infectious Disease Are you exhibiting symptoms associated with any current EIDs: No - Review of Systems Constitutional: No Symptoms, No Fever, No Chills Eyes: No Symptoms Ears, Nose, & Throat: No Symptoms Respiratory: No Symptoms, No Cough, No Dyspnea Cardiac: No Symptoms, No Chest Pain, No Edema, No Syncope Abdominal/Gastrointestinal: No Symptoms, No Abdominal Pain, No Nausea, No Vomiting, No Diarrhea Genitourinary Symptoms: No Symptoms, No Dysuria Musculoskeletal: No Symptoms, No Back Pain, No Neck Pain Skin: No Symptoms, No Rash Neurological: No Symptoms, No Dizziness, No Focal Weakness, No Sensory Changes Psychological: No Symptoms Endocrine: No Symptoms Hematologic/Lymphatic: No Symptoms Immunological/Allergic: No Symptoms All Other Systems: Reviewed and Negative - Past Medical History Pertinent Past Medical History: Yes Neurological History: Dementia, Peripheral Neuropathy ENT History: Cataracts Cardiac History: Hypertension Respiratory History: COPD, Pulmonary Embolism Endocrine Medical History: Diabetes Type II, Hypothyroidism Musculoskeletal History: Arthritis, Degenerative Disk Disease, Osteoarthritis GI Medical History: Diverticulosis, Hemorrhoids, Hernia, Other History: Renal Disease Psycho-Social History: No Pertinent History Female Reproductive Disorders: No Pertinent History Other Medical History: PE, ARRYTHMIA, MYELODSYPLASTIC SYNDROME. PSH: CARDIAC CATH, HYSTERECTOMY, LUMPECTOMY, BASAL AND SQUAMOUS CELL CA. Stage 4 CKD, afib - Past Surgical History Past Surgical History: Yes Neuro Surgical History: No Pertinent History Cardiac: Cardiac Catheterization Respiratory: No Pertinent History Gastrointestinal: Other Genitourinary: No Pertinent History Musculoskeletal: No Pertinent History Female Surgical History: Hysterectomy, Lumpectomy Other Surgical History: breast tumor removed, tumor removed from back benign, 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, cauterization due to intestinal bleed, colon ruptured was septic and has colostomy Significant Family History: no pertinent family hx - Social History Smoking Status: Never smoker Exposure to second hand smoke: No Drug Use: none Patient Lives Alone: No - Social Determinants of Health Will the patient participate in the screening: Declined to provide Do you worry about a steady place to live?: No In the past 12 months,have you had to go without utilities?: No Transportation Issues: No Has anyone in your support network made you feel unsafe?: No Have you or anyone in your house had to go without enough: No - Nursing Vital Signs Nursing Vital Signs: Initial Vital Signs Temperature 97.8 F 05/03/24 21:18 Pulse Rate 107 H 05/03/24 21:18 Respiratory Rate 18 05/03/24 21:18 Blood Pressure 187/88 05/03/24 21:18 O2 Sat by Pulse Oximetry 95 05/03/24 21:18 Pain Scale Pain Intensity 5 - Physical Exam General Appearance: no apparent distress, alert Eye Exam: PERRL/EOMI, eyes nml inspection Ears, Nose, Throat Exam: moist mucous membranes Neck Exam: normal inspection, non-tender, supple, full range of motion Respiratory Exam: normal breath sounds, lungs clear, No respiratory distress Cardiovascular Exam: regular rate/rhythm, normal heart sounds, normal peripheral pulses Gastrointestinal/Abdomen Exam: soft, normal bowel sounds, other (Intact colostomy), No tenderness, No mass Back Exam: normal inspection, normal range of motion, No CVA tenderness, No vertebral tenderness Extremity Exam: normal inspection, normal range of motion, pelvis stable Neurologic Exam: alert, oriented x 3, cooperative, normal mood/affect, sensation nml, No motor deficits Skin Exam: normal color, warm, dry, No rash Lymphatic Exam: No adenopathy SpO2 Interpretation: normal SpO2: 95 O2 Delivery: Room Air - Course Nursing assessment & vital signs reviewed: Yes - Progress Progress: unchanged, improved Progress Note: 83-year-old female referred to our ED by her primary care doctor to be assessed for C. difficile. Stool sample forwarded to lab. No indication for workup. Will discharge home. Results pending. Patient will be notified of results as soon as they become available. Will discharge at this time Complexity problem addressed is moderate acute complicated. No critical care time. Complex of data reviewed none. No specialized testing ordered. Diagnosis made based on history and physical. Risk complication/risk morbidity/mortality patient management is low. Vital stable. Time spent to discharge patient approximately 10 minutes. Plan of care established via shared decision making. No social determinants of health present impede follow-up. Portions of this note were created with voice recognition technology. There may be grammatical, spelling, punctuation or sound alike errors 05/03/24 22:29 Counseled pt/family regarding: diagnosis, need for follow-up - Departure Departure Disposition: Home Clinical Impression: Diarrhea Condition: Stable Critical Care Time: No Referrals: ENVIVE,ENVIVE [Primary Care Provider] - Follow up/PCP as directed Additional Instructions: Discharge/Care Plan CECY OMALLEY GRAY was seen on 05/03/24 in the Emergency Room. The patient was counseled regarding Diagnosis,Lab results, Imaging studies, need for follow up and when to return to the Emergency Room. Prescriptions given: Discharge Note I have spoken with the patient and/or caregivers. I have explained the patient's condition, diagnosis and treatment plan based on the information available to me at this time. I have answered the patient's and/or caregiver's questions and addressed any concerns. The patient and/or caregivers have as good understanding of the patient's diagnosis, condition and treatment plan as can be expected at this point. The vital signs have been stable. The patient's condition is stable and appropriate for discharge from the emergency department. The patient will pursue further outpatient evaluation with the primary care physician or other designated or consulting physician as outlined in the discharge instructions. The patient and/or caregivers are agreeable to this plan of care and follow-up instructions have been explained in detail. The patient and/or caregivers have received these instruction. The patient/and or caregivers are aware that any significant change in condition or worsening of symptoms should prompt an immediate return to this or the closest emergency department or call 911.
[2024-05-03 23:15] LABS: 027 TOX PROD PRESUMPTIVE NEGATIVE (NEGATIVE)
[2024-05-03 23:32] LABS: TOXIGENIC C. DIFF ORG POSITIVE (NEGATIVE)
== END 2024-05-03 22:57 | disposition home or self-care (01) ==
LOC: ED 21:09
DX: R19.7 Diarrhea, unspecified (principal); I12.9 Hypertensive chronic kidney disease with stage 1 through stage 4 chronic kidney disease, or unspecified chronic kidney disease; E11.22 Type 2 diabetes mellitus with diabetic chronic kidney disease; N18.4 Chronic kidney disease, stage 4 (severe); E11.42 Type 2 diabetes mellitus with diabetic polyneuropathy; Z79.84 Long term (current) use of oral hypoglycemic drugs; Z79.891 Long term (current) use of opiate analgesic; Z79.899 Other long term (current) drug therapy; Z93.3 Colostomy status
CPT/HCPCS: 87493; 99282

== ENCOUNTER 2025-03-15 16:06 | Observation (INO) | payer MEDICARE ==
--- NOTE | 2025-03-15 16:20 | ERPHSYRPT ---
- History of Present Illness Time Seen by Provider: 03/15/25 16:20 Source: patient, family Exam Limitations: clinical condition Physician History: This is a morbidly obese 84-year-old white female patient of Dr. Minaya who presents to the emergency department with sudden onset of right lower extremity pain cranial to her knee without history of fall or trauma. Patient does have a significant history of pulmonary embolus and has been off of anticoagulation therapy for quite some time. She has no chest pain. She has no shortness of breath. Patient has a history of atrial fibrillation. She also has a history of significant dementia. She has a history of peripheral neuropathy, myelodysplastic syndrome, stage IV kidney disease, CHF, diabetes, hypertension, hypothyroidism, gastroesophageal reflux disease and COPD. She is very hard of hearing. Patient's daughter is concerned that the patient might also have a urinary tract infection as her urine has a foul odor. Occurred: this morning Quality: intermittent, aching Severity of Pain-Max: moderate Severity of Pain-Current: mild Lower Extremities Pain: leg: right (Upper leg, above the knee), knee: right Modifying Factors: Improves With: movement, other (Palpation) Associated Symptoms: other (Hurts to bear weight. Patient does not ambulate much) Allergies/Adverse Reactions: amoxicillin Allergy (Verified 03/15/25 16:18) levofloxacin [From Levaquin] Allergy (Verified 03/15/25 16:18) ofloxacin [From Floxin] Allergy (Verified 03/15/25 16:18) Sulfa (Sulfonamide Antibiotics) [Sulfa(Sulfonamide Antibiotics)] Allergy (Verified 03/15/25 16:18) adhesive tape Adverse Reaction (Verified 03/15/25 16:18) Home Medications: Carvedilol [Coreg ] 6.25 mg PO BID 03/18/24 [History] HydrALAzine HCL 25 MG TAB [Apresoline 25 MG TABLET] 25 mg PO TID 03/18/24 [History] Glimepiride 2 mg [Amaryl 2 MG] 2 mg PO DAILY 03/30/24 [History] Hydrocodone/Acetaminophen [Hydrocodone-Acetamin 7.5-325] 1 each PO Q6H PRN 03/30/24 [History] Omeprazole 20 mg PO DAILY PRN 03/30/24 [History] Ondansetron [Ondansetron Odt ] 4 mg PO Q8H PRN PRN 03/30/24 [History] Levothyroxine Sodium 100 Mcg [Synthroid 100 Mcg] 200 mcg PO DAILY 04/17/24 [History] Bumetanide 2 mg PO BID 11/21/24 [History] Fluticasone/Umeclidin/Vilanter [Trelegy Ellipta 100-62.5-25] 1 each IH DAILY 11/21/24 [History] Levalbuterol Tartrate [Xopenex Hfa] 15 gm IH Q4HPRN PRN 11/21/24 [History] Potassium Chloride 10 meq PO BID 11/21/24 [History] levalbuterol HCl [Xopenex 1.25 MG/0.5 ML UD NEBULE] 1.25 mg IH DAILY PRN PRN 11/21/24 [History] Hx Tetanus, Diphtheria Vaccination/Date Given: Yes Hx Influenza Vaccination/Date Given: Yes Hx Pneumococcal Vaccination/Date Given: Yes Travel Risk - International Travel Have you traveled outside of the country in past 3 weeks: No - Emerging Infectious Disease Are you exhibiting symptoms associated with any current EIDs: No - Review of Systems Constitutional: No Symptoms Eyes: No Symptoms Ears, Nose, & Throat: No Symptoms Respiratory: No Symptoms Cardiac: No Symptoms Abdominal/Gastrointestinal: No Symptoms Genitourinary Symptoms: No Symptoms Musculoskeletal: Other (Pain above the right knee with palpation. Intermittently pain is severe without palpation.) Skin: No Symptoms Neurological: No Symptoms Psychological: No Symptoms Endocrine: No Symptoms Hematologic/Lymphatic: No Symptoms Immunological/Allergic: No Symptoms All Other Systems: Reviewed and Negative - Past Medical History Pertinent Past Medical History: Yes Neurological History: Dementia, Peripheral Neuropathy ENT History: Cataracts Cardiac History: Congestive Heart Failure, Hypertension Respiratory History: COPD, Pulmonary Embolism, Sleep Apnea Endocrine Medical History: Diabetes Type II, Hypothyroidism Musculoskeletal History: Arthritis, Degenerative Disk Disease, Osteoarthritis, Rheumatoid Arthritis GI Medical History: Diverticulosis, Hemorrhoids, Hernia, Other History: Renal Disease Psycho-Social History: No Pertinent History Female Reproductive Disorders: No Pertinent History Other Medical History: PE, ARRYTHMIA, MYELODSYPLASTIC SYNDROME. PSH: CARDIAC CATH, HYSTERECTOMY, LUMPECTOMY, BASAL AND SQUAMOUS CELL CA. Stage 4 CKD, afib - Past Surgical History Past Surgical History: Yes Neuro Surgical History: No Pertinent History Cardiac: Cardiac Catheterization Respiratory: No Pertinent History Gastrointestinal: Other Genitourinary: No Pertinent History Musculoskeletal: No Pertinent History Female Surgical History: Hysterectomy, Lumpectomy Other Surgical History: breast tumor removed, tumor removed from back benign, 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, cauterization due to intestinal bleed, colon ruptured was septic and has colostomy Significant Family History: no pertinent family hx - Social History Drug Use: none - Social Determinants of Health Will the patient participate in the screening: Declined to provide Do you worry about a steady place to live?: No In the past 12 months,have you had to go without utilities?: No Transportation Issues: No Has anyone in your support network made you feel unsafe?: No Have you or anyone in your house had to go w/o enough food: No - Nursing Vital Signs Nursing Vital Signs: Initial Vital Signs Pulse Rate 72 03/15/25 16:11 Pain Scale Pain Intensity 8 - Physical Exam General Appearance: no apparent distress, alert, anxiety, obese Eyes, Ears, Nose, Throat Exam: normal ENT inspection, moist mucous membranes Neck Exam: normal inspection, non-tender, supple, full range of motion Cardiovascular/Respiratory Exam: chest non-tender, normal breath sounds, regular rate/rhythm, heart sounds normal, no respiratory distress Gastrointestinal/Abdominal Exam: non-tender Back Exam: normal inspection, normal range of motion, No CVA tenderness, No vertebral tenderness Hips Exam: bilateral: non-tender, normal inspection, normal range of motion, no evidence of injury Legs Exam: right leg: bone tenderness (Just above the right knee to palpation), soft tissue tenderness (Just above the right knee to palpation), other (No evidence of cellulitis on either), left leg: non-tender, bilateral leg: normal inspection, no evidence of injury Knees Exam: right knee: soft tissue tenderness, other (Decreased range of motion right knee), left knee: non-tender, normal inspection, normal range of motion, no evidence of injury Ankle Exam: bilateral ankle: non-tender, normal inspection, normal range of motion, no evidence of injury Foot Exam: bilateral foot: non-tender, normal inspection, normal range of motion, no evidence of injury Neuro/Tendon Exam: normal sensation, normal tendon functions, responds to pain, no evidence tendon injury Mental Status Exam: alert, cooperative Skin Exam: normal color, warm, dry SpO2 Interpretation: normal SpO2: 95 O2 Delivery: Room Air - Course Nursing assessment & vital signs reviewed: Yes Ordered Tests: Active Orders 24 hr Category Date Time Status FEMUR Stat Exams 03/15/25 16:44 Taken VENOUS UNILAT/LIMITED EXTREMIT [US] Stat Exams 03/15/25 16:43 Taken CULTURE,URINE Stat Lab 03/15/25 17:24 Received UA W/RFX UR CULTURE Stat Lab 03/15/25 17:24 Completed Medication Summary Discontinued Medications Generic Name Dose Route Start Last Admin Trade Name Freq PRN Reason Stop Dose Admin Hydralazine HCl 25 mg 03/15/25 17:24 03/15/25 17:42 Hydralazine Hcl 25 Mg Tablet PO 03/15/25 17:25 25 mg STAT ONE Administration Lab/Rad Data: Laboratory Results 03/15/25 Range/Units 17:24 Urine Color Yellow (Yellow) Urine Appearance Clear (Clear) Urine pH 8.0 (4.6-8.0) Ur Specific [place] 1.010 (1.005-1.030) Urine Protein 300 A (Negative) Urine Glucose (UA) Negative (Negative) mg/dL Urine Ketones Negative (Negative) Urine Blood Negative (Negative) Urine Nitrite Negative (Negative) Urine Bilirubin Negative (Negative) Urine Urobilinogen 0.2 (0.2) mg/dL Ur Leukocyte Esterase Negative (Negative) U Hyaline Cast (Auto) NONE SEEN (0-2) /LPF Urine Microscopic RBC 0-2 (0-5) /HPF Urine Microscopic WBC 0-2 (0-5) /HPF Ur Epithelial Cells None Seen (None Seen) /HPF Urine Bacteria None Seen (None Seen) /HPF Urine Culture Reflexed ORDERED SEPARATELY (NO) - Progress Progress: pain not gone completely Progress Note: 03/15/25 16:52 I medical decision making and the assignment of moderate complexity of this patient's medical issue today is based on review of the patient's past medical history, review the patient's medication list, review the patient drug allergy list, history present illness and physical findings on examination. The workup in this patient includes urinalysis, x-ray of the patient's right femur and ri ght knee, venous Doppler right lower extremity. Differential diagnosis includes but is not limited to urinary tract infection, fracture right femur, dislocation right femur, fracture right knee, dislocation right knee, DVT right lower extremity, muscle skeletal pain 03/15/25 17:28 The black top raker/technologist reported to me the preliminary report as negative for DVT of her right lower extremity. 03/15/25 18:03 I interpreted the patient's laboratory data results. Based on laboratory data results, the patient does not have evidence of a urinary tract infection. 03/15/25 18:40 I interpreted the patient's preliminary x-ray report on the patient's right femur x-ray. My interpretation is no acute fracture or dislocation. Counseled pt/family regarding: diagnosis, need for follow-up, rad results Medical Desision Making - Independent Historian Additional History obtained from: Family - Diagnostic Testing Diagnostic test were ordered, analyzed, and reviewed by me: Yes Radiological Interpretation: Interpreted by me, Teleradiologist Report - Risk of complications Low Risk: Low risk of morbidity from additional dx testing or treatment - Departure Departure Disposition: Home Clinical Impression: Hypertension, Musculoskeletal pain of right thigh Condition: Stable Critical Care Time: No Referrals: TRINH MINAYA MD [Primary Care Provider, INTERNAL MEDICINE] - Follow up/PCP as directed Additional Instructions: Take all your medication as prescribed including your blood pressure medication when you get home, as prescribed. Call your primary care provider tomorrow, 03/16/2025, to make arrangements for follow-up appointment for further evaluation and management.
[2025-03-15] MEDS: Apresoline 25 MG TABLET PO ONE (17:42)
[2025-03-15 17:47] LABS: Appearance Clear (Clear); Bacteria None Seen /HPF (None Seen); Bilirubin Negative (Negative); Blood Negative (Negative); Epithelial Cells None Seen /HPF (None Seen); Glucose, Urine Negative (Negative); Hyaline Casts NONE SEEN /LPF (0-2); Ketones Negative (Negative); Leukocyte Esterase Negative (Negative); Nitrite Negative (Negative); Protein,Urine Dip 300 (Negative); RBC 0-2 /HPF (0-5); Urobilinogen 0.2 mg/dL (0.2); WBC 0-2 /HPF (0-5)
[2025-03-15 19:36] LABS: Absolute Neutrophil Ct (ANC) 6.87 x10^3/uL (1.56-6.13); BASOPHIL % 0.8 % (0.1-1.2); Basophil (Absolute #) 0.09 x10^3/uL (0.01-0.08); Eosinophil % 3.5 % (0.7-5.8); Hematocrit 37.5 % (34.1-44.9); Hemoglobin 12.2 g/dL (11.2-15.7); IMMATURE GRAN % 0.9 % (0.001-0.429); Lymphocyte (Absolute #) 3.29 x10^3/uL (1.18-3.74); Lymphocytes % 28.7 % (19.3-51.7); Mean Cell Volume 84.8 fL (79.4-94.8); Mean Corpuscular Hemoglobin 27.6 pg (25.6-32.2); Mean Corpuscular Hgb Concent. 32.5 g/dL (32.2-35.5); Mean Platelet Volume 9.9 fL (9.4-12.3); Monocytes % 6.1 % (4.7-12.5); Platelet Count 198 x10^3/uL (182-369); Red Blood Count 4.42 x10^6/uL (3.93-5.22); Red Cell Distribution Width 17.3 % (11.7-14.4); White Blood Count 11.5 x10^3/uL (3.98-10.04)
[2025-03-15 19:51] LABS: ALBUMIN 4.5 g/dL (3.5-5.0); BILIRUBIN,TOTAL 0.5 mg/dL (0.2-1.3); Calcium 10.1 mg/dL (8.4-10.2); Creatinine 1 1.57 mg/dL (0.52-1.04); EST GLOMERULAR FILTRATION RATE 32.1 ML/MIN; MAGNESIUM 1.7 mg/dL (1.6-2.3); Potassium 4.3 mmol/L (3.5-5.1); Total Protein 8.1 g/dL (6.3-8.2)
[2025-03-15] MEDS: APRESOLINE 20 MG/ML INJ IV ONE (19:51)
[2025-03-15] MEDS ORDERED: APRESOLINE 20 MG/ML INJ ONE (19:51)
[2025-03-15] MEDS ORDERED: MORPHINE SULFATE 2 MG INJ ONE (20:28)
[2025-03-15] MEDS: MORPHINE SULFATE 2 MG INJ IV ONE (20:30)
[2025-03-15 20:50] LABS: NT PRO BNPII 385 pg/mL (<300); TROPONIN < 0.012 ng/mL (0.000-0.033)
[2025-03-15] MEDS ORDERED: ZOFRAN ODT 4 MG PO PRN (22:05)
[2025-03-15] MEDS ORDERED: NON-FORMULARY ITEM (Omeprazole [Omeprazole] 20 MG Tablet.Dr) PO PRN (22:05)
[2025-03-15] MEDS ORDERED: Xopenex 1.25 MG/0.5 ML UD NEBULE IH PRN (22:05)
[2025-03-15] MEDS ORDERED: NYSTOP POWDER 15 GM TP PRN (22:05)
[2025-03-15] MEDS ORDERED: NORCO 10-325 MG PO PRN (22:05)
[2025-03-15] MEDS ORDERED: Docusate Sodium 100 MG PO PRN (22:10)
[2025-03-15] MEDS ORDERED: TYLENOL 325 MG PO PRN (22:10)
[2025-03-15] MEDS ORDERED: HUMALOG SQ PRN (22:10)
[2025-03-15] MEDS ORDERED: MORPHINE SULFATE 2 MG INJ IV PRN (22:13)
--- NOTE | 2025-03-15 22:19 | PCM.HP ---
History of Present Illness - Chief Complaint Chief Complaint: Leg pain, hypertension Date: 03/15/25 History of Present Illness: is a 84 year old female with a history of peripheral neuropathy, myelodysplastic syndrome, stage IV kidney disease, CHF, CKD, diabetes, hypertension, hypothyroidism, dementia, gastroesophageal reflux disease, atrial fibrillation, pulmonary embolus (off anticoagulation), and COPD, who now presents to the hospital with sudden onset of right lower extremity pain cranial to her knee without history of fall or trauma. The patient is extremely hard of hearing and communication was facilitated by a nurse at bedside. She has no philly st pain or shortness of breath. Patient has a history of atrial fibrillation. There was a report of foul smelling urine but in the ED the UA was unremarkable. Ultrasound and radiograph of the leg were unremarkable. The patient was too weak to go home, and the patient's daughter could not care for the patient due to her significant care needs. - Review of Systems Constitutional: No Symptoms Eyes: No Symptoms Ears, Nose, & Throat: No Symptoms Respiratory: No Symptoms Cardiac: Edema Abdominal/Gastrointestinal: No Symptoms Genitourinary Symptoms: No Symptoms Musculoskeletal: No Symptoms, Joint Pain Skin: No Symptoms Neurological: No Symptoms Psychological: No Symptoms Endocrine: No Symptoms Hematologic/Lymphatic: No Symptoms Immunological/Allergic: No Symptoms All Other Systems: Reviewed and Negative Medications & Allergies Home Medications: Home Medication List Carvedilol [Coreg ] 6.25 mg PO BID 03/18/24 [History Confirmed 03/15/25] HydrALAzine HCL 25 MG TAB [Apresoline 25 MG TABLET] 25 mg PO TID 03/18/24 [History Confirmed 03/15/25] Glimepiride 2 mg [Amaryl 2 MG] 2 mg PO DAILY 03/30/24 [History Confirmed 03/15/25] Omeprazole 20 mg PO DAILY PRN 03/30/24 [History Confirmed 03/15/25] Ondansetron [Ondansetron Odt ] 4 mg PO Q8H PRN PRN 03/30/24 [History Confirmed 03/15/25] Fluticasone/Umeclidin/Vilanter [Trelegy Ellipta 100-62.5-25] 1 each IH DAILY 11/21/24 [History Confirmed 03/15/25] Potassium Chloride 10 meq PO BID 11/21/24 [History Confirmed 03/15/25] levalbuterol HCl [Xopenex 1.25 MG/0.5 ML UD NEBULE] 1.25 mg IH DAILY PRN PRN 11/21/24 [History Confirmed 03/15/25] Hydrocodone/Acetaminophen [Hydrocodone-Acetamin 10-325 mg] 1 tab PO Q6HPRN PRN 03/15/25 [History Confirmed 03/15/25] Nystatin Powder 15 gm [Nystop Powder 15 gm] 1 gm TP BID PRN 03/15/25 [History Confirmed 03/15/25] Allergies/Adverse Reactions: Allergies Allergy/AdvReac Type Severity Reaction Status Date / Time amoxicillin Allergy Verified 03/15/25 16:18 levofloxacin [From Levaquin] Allergy Verified 03/15/25 16:18 ofloxacin [From Floxin] Allergy Verified 03/15/25 16:18 Sulfa (Sulfonamide Allergy Verified 03/15/25 16:18 Antibiotics) [Sulfa(Sulfonamide Antibiotics)] adhesive tape AdvReac Verified 03/15/25 16:18 - Past Medical History Past Medical History: Yes Neurological History: Dementia, Peripheral Neuropathy ENT History: Cataracts Cardiac History: Congestive Heart Failure, Hypertension Respiratory History: COPD, Pulmonary Embolism, Sleep Apnea Endocrine Medical History: Diabetes Type II, Hypothyroidism Musculoskelatal History: Arthritis, Degenerative Disk Disease, Osteoarthritis, Rheumatoid Arthritis GI Medical History: Diverticulosis, Hemorrhoids, Hernia, Other History: Renal Disease Pyscho-Social History: No Pertinent History Reproductive Disorders: No Pertinent History Comment: PE, ARRYTHMIA, MYELODSYPLASTIC SYNDROME. PSH: CARDIAC CATH, HYSTERECTOMY, LUMPECTOMY, BASAL AND SQUAMOUS CELL CA. Stage 4 CKD, afib - Past Surgical History Past Surgical History: Yes Neuro Surgical History: No Pertinent History Cardiac History: Cardiac Catheterization Respiratory Surgery: No Pertinent History GI Surgical History: Other Genitourinary Surgical Hx: No Pertinent History Musculskeletal Surgical Hx: No Pertinent History Female Surgical History: Hysterectomy, Lumpectomy Other Surgical History: breast tumor removed, tumor removed from back benign, 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, cauterization due to intestinal bleed, colon ruptured was septic and has colostomy Significant Family History: no pertinent family hx - Social History Smoking Status: Never smoker Exposure to second hand smoke: No Alcohol: None Drug Use: none - Social Determinants of Health Will the patient participate in the screening: Declined to provide Do you worry about a steady place to live?: No In the past 12 months,have you had to go without utilities?: No Have you or anyone in your house had to go without enough: No Transportation Issues: No Has anyone in your support network made you feel unsafe?: No Does the patient want assistance with any of the above?: No - Physical Exam Vital Signs: Vital Signs - 24 hr Temp Pulse Resp BP Pulse Ox 03/15/25 21:11 73 22 172/65 97 03/15/25 21:00 72 18 177/90 94 L 03/15/25 20:40 74 17 172/59 94 L 03/15/25 20:30 73 17 185/115 94 L 03/15/25 20:20 78 2 L 211/82 94 L 03/15/25 20:10 76 18 205/120 93 L 03/15/25 20:01 74 18 209/112 94 L 03/15/25 19:50 72 19 216/103 95 03/15/25 19:40 70 23 225/108 94 L 03/15/25 19:31 75 17 216/109 95 03/15/25 19:30 94 L 03/15/25 19:25 74 17 233/116 95 03/15/25 19:20 72 22 221/96 95 03/15/25 19:12 72 16 215/97 95 03/15/25 19:11 71 18 203/99 96 03/15/25 19:01 75 15 168/100 95 03/15/25 18:50 72 19 208/95 96 03/15/25 18:42 95 03/15/25 18:40 72 17 216/96 96 03/15/25 18:30 70 17 222/94 96 03/15/25 18:21 71 18 203/91 96 03/15/25 18:10 76 19 227/98 95 03/15/25 18:00 75 20 201/100 83 L 03/15/25 17:50 65 16 217/106 95 03/15/25 17:40 64 19 204/92 95 03/15/25 17:31 65 16 201/96 94 L 05/07/25 17:21 69 20 218/100 03/15/25 17:10 81 21 240/114 96 03/15/25 17:00 77 21 230/122 95 03/15/25 16:50 71 22 224/104 95 03/15/25 16:40 71 20 230/111 96 03/15/25 16:30 70 20 217/109 03/15/25 16:24 78 24 228/106 97 03/15/25 16:13 97.1 F 68 18 209/95 95 03/15/25 16:12 74 24 94 L 03/15/25 16:11 72 General Appearance: no apparent distress, alert Neurologic Exam: alert, oriented x 3, cooperative, biological chemist II-XII nml as tested, normal mood/affect, nml cerebellar function Eye Exam: PERRL/EOMI, eyes nml inspection Ears, Nose, Throat Exam: normal ENT inspection Neck Exam: normal inspection, non-tender, supple, full range of motion Respiratory Exam: normal breath sounds, lungs clear, airway intact Cardiovascular Exam: regular rate/rhythm, normal heart sounds, edema Gastrointestinal/Abdomen Exam: soft, normal bowel sounds Back Exam: normal range of motion Extremity Exam: normal range of motion, pedal edema, swelling Skin Exam: normal color Results - Labs Lab/Micro Results: Lab Results-Last 24 Hours 03/15/25 03/15/25 03/15/25 Range/Units 17:00 17:00 17:00 WBC 11.5 H (3.98-10.04) x10^3/uL RBC 4.42 (3.93-5.22) x10^6/uL Hgb 12.2 (11.2-15.7) g/dL Hct 37.5 (34.1-44.9) % MCV 84.8 (79.4-94.8) fL MCH 27.6 (25.6-32.2) pg MCHC 32.5 (32.2-35.5) g/dL RDW 17.3 H (11.7-14.4) % Plt Count 198 (182-369) x10^3/uL MPV 9.9 (9.4-12.3) fL Gran % 60.0 (34.0-71.1) % Immature Gran % (Auto) 0.9 H (0.001-0.429) % Nucleat RBC Rel Count 0.0 (0.00-0.2) % Eos # (Auto) 0.40 H (0.04-0.36) x10^3/uL Immature Gran # (Auto) 0.10 H (0.001-0.031) x10^3u/L Absolute Lymphs (auto) 3.29 (1.18-3.74) x10^3/uL Absolute Monos (auto) 0.70 (0.24-0.86) x10^3/uL Absolute Nucleated RBC 0.00 (0.00-0.012) x10^3u/L Lymphocytes % 28.7 (19.3-51.7) % Monocytes % 6.1 (4.7-12.5) % Eosinophils % 3.5 (0.7-5.8) % Basophils % 0.8 (0.1-1.2) % Absolute Granulocytes 6.87 H (1.56-6.13) x10^3/uL Basophils # 0.09 H (0.01-0.08) x10^3/uL Sodium 137 (135-145) mmol/L Potassium 4.3 (3.5-5.1) mmol/L Chloride 93 L (98-107) mmol/L Carbon Dioxide 32 H (22-30) mmol/L Anion Gap 16.0 H (5-15) MEQ/L BUN 39 H (7-17) mg/dL Creatinine 1.57 H (0.52-1.04) mg/dL Estimated GFR 32.1 ML/MIN Glucose 144 H (74-106) mg/dL Calcium 10.1 (8.4-10.2) mg/dL Magnesium 1.7 (1.6-2.3) mg/dL Total Bilirubin 0.50 (0.2-1.3) mg/dL AST 49 H (14-36) U/L ALT 72 H (0-35) U/L Alkaline Phosphatase 86 (38-126) U/L Troponin I < 0.012 (0.000-0.033) ng/mL NT-Pro-B Natriuret Pep 385 (<300) pg/mL Serum Total Protein 8.1 (6.3-8.2) g/dL Albumin 4.5 (3.5-5.0) g/dL Urine Color (Yellow) Urine Appearance (Clear) Urine pH (4.6-8.0) Ur Specific [place] (1.005-1.030) Urine Protein (Negative) Urine Glucose (UA) (Negative) mg/dL Urine Ketones (Negative) Urine Blood (Negative) Urine Nitrite (Negative) Urine Bilirubin (Negative) Urine Urobilinogen (0.2) mg/dL Ur Leukocyte Esterase (Negative) U Hyaline Cast (Auto) (0-2) /LPF Urine Microscopic RBC (0-5) /HPF Urine Microscopic WBC (0-5) /HPF Ur Epithelial Cells (None Seen) /HPF Urine Bacteria (None Seen) /HPF Urine Culture Reflexed (NO) 03/15/25 03/15/25 Range/Units 17:24 20:35 WBC (3.98-10.04) x10^3/uL RBC (3.93-5.22) x10^6/uL Hgb (11.2-15.7) g/dL Hct (34.1-44.9) % MCV (79.4-94.8) fL MCH (25.6-32.2) pg MCHC (32.2-35.5) g/dL RDW (11.7-14.4) % Plt Count (182-369) x10^3/uL MPV (9.4-12.3) fL Gran % (34.0-71.1) % Immature Gran % (Auto) (0.001-0.429) % Nucleat RBC Rel Count (0.00-0.2) % Eos # (Auto) (0.04-0.36) x10^3/uL Immature Gran # (Auto) (0.001-0.031) x10^3u/L Absolute Lymphs (auto) (1.18-3.74) x10^3/uL Absolute Monos (auto) (0.24-0.86) x10^3/uL Absolute Nucleated RBC (0.00-0.012) x10^3u/L Lymphocytes % (19.3-51.7) % Monocytes % (4.7-12.5) % Eosinophils % (0.7-5.8) % Basophils % (0.1-1.2) % Absolute Granulocytes (1.56-6.13) x10^3/uL Basophils # (0.01-0.08) x10^3/uL Sodium (135-145) mmol/L Potassium (3.5-5.1) mmol/L Chloride (98-107) mmol/L Carbon Dioxide (22-30) mmol/L Anion Gap (5-15) MEQ/L BUN (7-17) mg/dL Creatinine (0.52-1.04) mg/dL Estimated GFR ML/MIN Glucose (74-106) mg/dL Calcium (8.4-10.2) mg/dL Magnesium (1.6-2.3) mg/dL Total Bilirubin (0.2-1.3) mg/dL AST (14-36) U/L ALT (0-35) U/L Alkaline Phosphatase (38-126) U/L Troponin I < 0.012 (0.000-0.033) ng/mL NT-Pro-B Natriuret Pep (<300) pg/mL Serum Total Protein (6.3-8.2) g/dL Albumin (3.5-5.0) g/dL Urine Color Yellow (Yellow) Urine Appearance Clear (Clear) Urine pH 8.0 (4.6-8.0) Ur Specific [place] 1.010 (1.005-1.030) Urine Protein 300 A (Negative) Urine Glucose (UA) Negative (Negative) mg/dL Urine Ketones Negative (Negative) Urine Blood Negative (Negative) Urine Nitrite Negative (Negative) Urine Bilirubin Negative (Negative) Urine Urobilinogen 0.2 (0.2) mg/dL Ur Leukocyte Esterase Negative (Negative) U Hyaline Cast (Auto) NONE SEEN (0-2) /LPF Urine Microscopic RBC 0-2 (0-5) /HPF Urine Microscopic WBC 0-2 (0-5) /HPF Ur Epithelial Cells None Seen (None Seen) /HPF Urine Bacteria None Seen (None Seen) /HPF Urine Culture Reflexed ORDERED SEPARATELY (NO) - Radiology Impressions Radiology Exams & Impressions: Radiology Procedures Category Date Time Status FEMUR Stat Exams 03/15/25 16:44 Taken VENOUS UNILAT/LIMITED EXTREMIT [US] Stat Exams 03/15/25 16:43 Taken Assessment/Plan (1) Weakness Current Visit: No Status: Acute Assessment & Plan: Unclear etiology of leg pain but imaging and exam are unremarkable. Analgesia. Mobilize with PT/OT. May need placement. CM eval. Follow exam for changes. Code(s): R53.1 - WEAKNESS (2) Elevated liver enzymes Current Visit: Yes Status: Acute Assessment & Plan: LFTs have been usually normal when trended. Abdominal exam is unremarkable. Repeat liver labs in AM and if persistently elevated, could consider liver US. No abdominal pain. Code(s): R74.8 - ABNORMAL LEVELS OF OTHER SERUM ENZYMES (3) CKD stage 4 due to type 2 diabetes mellitus Current Visit: No Status: Chronic Assessment & Plan: Creatinine at baseline. Monitor renal function. Code(s): E11.22 - TYPE 2 DIABETES MELLITUS W DIABETIC CHRONIC KIDNEY DISEASE; N18.4 - CHRONIC KIDNEY DISEASE, STAGE 4 (SEVERE) (4) HTN (hypertension) Current Visit: Yes Status: Chronic Assessment & Plan: BP was initially very high, likely due to pain. BP is now improved. Monitor on home regimen. Code(s): I10 - ESSENTIAL (PRIMARY) HYPERTENSION (5) Type 2 diabetes mellitus Current Visit: No Status: Chronic Assessment & Plan: Monitor sugars on home regimen and ISS. Telemedicine Encounter - Telemedicine Encounter Telemedicine Encounter: "The entirety of this encounter was performed via Telemedicine" This visit was performed using real-time audio and video connection between my location and thepatients locationwith the assistance of a surrogateat the patients location. Written or verbal consent was obtained from the patient/guardian to perform this visit usingnchrLabArchivestelemedicine technology. Any patient questions regarding the telemedicine interaction were answered. Please note that this admission required 45 minutes to complete.
[2025-03-16 04:47] LABS: Absolute Neutrophil Ct (ANC) 6.73 x10^3/uL (1.56-6.13); BASOPHIL % 0.6 % (0.1-1.2); Basophil (Absolute #) 0.06 x10^3/uL (0.01-0.08); Hematocrit 37.7 % (34.1-44.9); Hemoglobin 12.3 g/dL (11.2-15.7); IMMATURE GRAN # 0.08 x10^3u/L (0.001-0.031); IMMATURE GRAN % 0.8 % (0.001-0.429); Lymphocyte (Absolute #) 2.08 x10^3/uL (1.18-3.74); Mean Cell Volume 84.7 fL (79.4-94.8); Mean Corpuscular Hemoglobin 27.6 pg (25.6-32.2); Mean Corpuscular Hgb Concent. 32.6 g/dL (32.2-35.5); Mean Platelet Volume 8.7 fL (9.4-12.3); Monocyte (Absolute #) 0.67 x10^3/uL (0.24-0.86); Monocytes % 6.8 % (4.7-12.5); Neutrophil % 67.8 % (34.0-71.1); Platelet Count 190 x10^3/uL (182-369); Red Blood Count 4.45 x10^6/uL (3.93-5.22); Red Cell Distribution Width 17.3 % (11.7-14.4); White Blood Count 9.9 x10^3/uL (3.98-10.04)
[2025-03-16 05:53] LABS: ALBUMIN 4.2 g/dL (3.5-5.0); ANION GAP 14.8 MEQ/L (5-15); BILIRUBIN,TOTAL 0.6 mg/dL (0.2-1.3); Calcium 9.7 mg/dL (8.4-10.2); Creatinine 1 1.36 mg/dL (0.52-1.04); EST GLOMERULAR FILTRATION RATE 38.2 ML/MIN; PREALBUMIN 29.58 mg/dL (17.6-36.0); Potassium 3.8 mmol/L (3.5-5.1); Total Protein 7.2 g/dL (6.3-8.2)
[2025-03-16] MEDS ORDERED: NORCO 10-325 MG ONE (06:47)
[2025-03-16] MEDS: NORCO 10-325 MG PO PRN (06:54)
[2025-03-16] MEDS: Advair Hfa 115/21 Common canister IH SCH (06:57)
[2025-03-16] MEDS: Spiriva 18 Mcg/Cap Inhaler IH SCH (07:01)
[2025-03-16] MEDS ORDERED: Protonix 40MG Tablet PO PRN (07:18)
[2025-03-16] MEDS: HEPARIN 5000 UNITS/0.5 ML (HIGH RISK MED) SQ SCH (08:16)
[2025-03-16] MEDS: Amaryl 2 MG PO SCH (08:16)
[2025-03-16] MEDS: Klor Con PO SCH (08:16)
[2025-03-16] MEDS: Apresoline 25 MG TABLET PO SCH ×2 (08:16→22:47)
[2025-03-16] MEDS: Coreg PO SCH (08:16)
--- NOTE | 2025-03-16 08:50 | XRAY ---
Indication: Pain. Comparison: None 2 portable views right femur demonstrates osteopenia, mild right hip degenerative arthropathy, and extensive scattered arteriosclerotic calcifications. No acute bony, articular, or soft tissue abnormalities.
--- NOTE | 2025-03-16 08:50 | XRAY ---
Indication: Right leg pain and swelling. Two-dimensional sonogram and color Doppler imaging major venous vessels right leg performed. Comparison: None Associate Professor Plant Pathology notes limited exam due to patient body habitus. No obvious thrombus seen in the examined deep venous vessels right leg including greater saphenous vein. Veins demonstrate normal compressibility and normal venous waveforms. Impression: Right leg grossly negative for DVT. Comment: Preliminary report was given.
[2025-03-16] MEDS ORDERED: NON-FORMULARY ITEM (Potassium Chloride [Potassium Chloride] 10 MEQ Capsule.Er) PO SCH (10:00)
[2025-03-16] MEDS ORDERED: NON-FORMULARY ITEM (Fluticasone/Umeclidin/Vilanter [Trelegy Ellipta 100-62.5-25] 1 EACH Bl IH SCH (10:00)
--- NOTE | 2025-03-16 10:03 | PCM.DS ---
Discharge Summary Date of Admission: 03/15/25 21:52 Date of Discharge: 03/16/25 Admitting Physician: CELESTINE ESTRADA MD Consults: Consults on Case 03/15/25 22:09 Case Management [facility] Needs Assessment ROUTINE Primary Care Provider: MARIMAR,TRINH Allergies Allergies amoxicillin Allergy (Verified 03/15/25 16:18) levofloxacin [From Levaquin] Allergy (Verified 03/15/25 16:18) ofloxacin [From Floxin] Allergy (Verified 03/15/25 16:18) Sulfa (Sulfonamide Antibiotics) [Sulfa(Sulfonamide Antibiotics)] Allergy (Verified 03/15/25 16:18) adhesive tape Adverse Reaction (Verified 03/15/25 16:18) Hospital Summary - Hospital Course Hospital Course: This is an 84-year-old female with a complex medical history including hearing loss, peripheral neuropathy, myelodysplastic syndrome, stage IV chronic kidney disease, congestive heart failure, diabetes, hypertension, hypothyroidism, dementia, GERD, atrial fibrillation, a history of pulmonary embolism (currently off anticoagulation), and COPD. She presented with right lower extremity pain extending from the knee upward, which has worsened following a fall six weeks ago in the parking lot of her primary care providers office. She denies chest pain or shortness of breath. Although there was an initial concern for a urinary tract infection due to foul-smelling urine, her urinalysis in the emergency department was unremarkable. Imaging of the right leg, including ultrasound and radiographs, did not reveal any acute abnormalities. The patient was deemed too weak to return home safely, and her daughter, who serves as her caregiver, is unable to meet the patients current care needs. Today, the patient continues to report right lower extremity pain, describing it as aching, and she has expressed a desire to be transferred home with HHC and PT in the home to regain strength. Case management will follow up with the patient and her daughter to discuss discharge planning . At this time, the patient denies any additional concerns. PT to eval for needs today. - Vitals & Intake/Output Vital Signs: Vital Signs Temperature 96.7 F 03/16/25 07:52 Pulse Rate 62 03/16/25 07:52 Respiratory Rate 18 03/16/25 07:52 Blood Pressure 189/91 03/16/25 07:52 O2 Sat by Pulse Oximetry 93 L 03/16/25 07:52 Intake & Output: Intake & Output 03/13/25 03/14/25 03/15/25 03/16/25 11:59 11:59 11:59 11:59 Intake Total 100 Output Total 400 Balance -300 Weight 92.4 kg - Lab Result Diagrams: 03/16/25 04:40 03/16/25 04:40 Lab Results-Last 24 Hrs: Lab Results-Last 24 Hours 03/15/25 03/15/25 03/15/25 Range/Units 17:00 17:00 17:00 WBC 11.5 H (3.98-10.04) x10^3/uL RBC 4.42 (3.93-5.22) x10^6/uL Hgb 12.2 (11.2-15.7) g/dL Hct 37.5 (34.1-44.9) % MCV 84.8 (79.4-94.8) fL MCH 27.6 (25.6-32.2) pg MCHC 32.5 (32.2-35.5) g/dL RDW 17.3 H (11.7-14.4) % Plt Count 198 (182-369) x10^3/uL MPV 9.9 (9.4-12.3) fL Gran % 60.0 (34.0-71.1) % Immature Gran % (Auto) 0.9 H (0.001-0.429) % Nucleat RBC Rel Count 0.0 (0.00-0.2) % Eos # (Auto) 0.40 H (0.04-0.36) x10^3/uL Immature Gran # (Auto) 0.10 H (0.001-0.031) x10^3u/L Absolute Lymphs (auto) 3.29 (1.18-3.74) x10^3/uL Absolute Monos (auto) 0.70 (0.24-0.86) x10^3/uL Absolute Nucleated RBC 0.00 (0.00-0.012) x10^3u/L Lymphocytes % 28.7 (19.3-51.7) % Monocytes % 6.1 (4.7-12.5) % Eosinophils % 3.5 (0.7-5.8) % Basophils % 0.8 (0.1-1.2) % Absolute Granulocytes 6.87 H (1.56-6.13) x10^3/uL Basophils # 0.09 H (0.01-0.08) x10^3/uL Sodium 137 (135-145) mmol/L Potassium 4.3 (3.5-5.1) mmol/L Chloride 93 L (98-107) mmol/L Carbon Dioxide 32 H (22-30) mmol/L Anion Gap 16.0 H (5-15) MEQ/L BUN 39 H (7-17) mg/dL Creatinine 1.57 H (0.52-1.04) mg/dL Estimated GFR 32.1 ML/MIN Glucose 144 H (74-106) mg/dL POC Glucometer (74 to 106) mg/dL Hemoglobin A1c (4.5-6.0) % Calcium 10.1 (8.4-10.2) mg/dL Magnesium 1.7 (1.6-2.3) mg/dL Total Bilirubin 0.50 (0.2-1.3) mg/dL AST 49 H (14-36) U/L ALT 72 H (0-35) U/L Alkaline Phosphatase 86 (38-126) U/L Troponin I < 0.012 (0.000-0.033) ng/mL NT-Pro-B Natriuret Pep 385 (<300) pg/mL Serum Total Protein 8.1 (6.3-8.2) g/dL Albumin 4.5 (3.5-5.0) g/dL Prealbumin (17.6-36.0) mg/dL Urine Color (Yellow) Urine Appearance (Clear) Urine pH (4.6-8.0) Ur Specific [place] (1.005-1.030) Urine Protein (Negative) Urine Glucose (UA) (Negative) mg/dL Urine Ketones (Negative) Urine Blood (Negative) Urine Nitrite (Negative) Urine Bilirubin (Negative) Urine Urobilinogen (0.2) mg/dL Ur Leukocyte Esterase (Negative) U Hyaline Cast (Auto) (0-2) /LPF Urine Microscopic RBC (0-5) /HPF Urine Microscopic WBC (0-5) /HPF Ur Epithelial Cells (None Seen) /HPF Urine Bacteria (None Seen) /HPF Urine Culture Reflexed (NO) 03/15/25 03/15/25 03/15/25 Range/Units 17:24 20:35 22:31 WBC (3.98-10.04) x10^3/uL RBC (3.93-5.22) x10^6/uL Hgb (11.2-15.7) g/dL Hct (34.1-44.9) % MCV (79.4-94.8) fL MCH (25.6-32.2) pg MCHC (32.2-35.5) g/dL RDW (11.7-14.4) % Plt Count (182-369) x10^3/uL MPV (9.4-12.3) fL Gran % (34.0-71.1) % Immature Gran % (Auto) (0.001-0.429) % Nucleat RBC Rel Count (0.00-0.2) % Eos # (Auto) (0.04-0.36) x10^3/uL Immature Gran # (Auto) (0.001-0.031) x10^3u/L Absolute Lymphs (auto) (1.18-3.74) x10^3/uL Absolute Monos (auto) (0.24-0.86) x10^3/uL Absolute Nucleated RBC (0.00-0.012) x10^3u/L Lymphocytes % (19.3-51.7) % Monocytes % (4.7-12.5) % Eosinophils % (0.7-5.8) % Basophils % (0.1-1.2) % Absolute Granulocytes (1.56-6.13) x10^3/uL Basophils # (0.01-0.08) x10^3/uL Sodium (135-145) mmol/L Potassium (3.5-5.1) mmol/L Chloride (98-107) mmol/L Carbon Dioxide (22-30) mmol/L Anion Gap (5-15) MEQ/L BUN (7-17) mg/dL Creatinine (0.52-1.04) mg/dL Estimated GFR ML/MIN Glucose (74-106) mg/dL POC Glucometer 152 H (74 to 106) mg/dL Hemoglobin A1c (4.5-6.0) % Calcium (8.4-10.2) mg/dL Magnesium (1.6-2.3) mg/dL Total Bilirubin (0.2-1.3) mg/dL AST (14-36) U/L ALT (0-35) U/L Alkaline Phosphatase (38-126) U/L Troponin I < 0.012 (0.000-0.033) ng/mL NT-Pro-B Natriuret Pep (<300) pg/mL Serum Total Protein (6.3-8.2) g/dL Albumin (3.5-5.0) g/dL Prealbumin (17.6-36.0) mg/dL Urine Color Yellow (Yellow) Urine Appearance Clear (Clear) Urine pH 8.0 (4.6-8.0) Ur Specific [place] 1.010 (1.005-1.030) Urine Protein 300 A (Negative) Urine Glucose (UA) Negative (Negative) mg/dL Urine Ketones Negative (Negative) Urine Blood Negative (Negative) Urine Nitrite Negative (Negative) Urine Bilirubin Negative (Negative) Urine Urobilinogen 0.2 (0.2) mg/dL Ur Leukocyte Esterase Negative (Negative) U Hyaline Cast (Auto) NONE SEEN (0-2) /LPF Urine Microscopic RBC 0-2 (0-5) /HPF Urine Microscopic WBC 0-2 (0-5) /HPF Ur Epithelial Cells None Seen (None Seen) /HPF Urine Bacteria None Seen (None Seen) /HPF Urine Culture Reflexed ORDERED SEPARATELY (NO) 03/16/25 03/16/25 03/16/25 Range/Units 01:15 04:40 04:40 WBC 9.9 (3.98-10.04) x10^3/uL RBC 4.45 (3.93-5.22) x10^6/uL Hgb 12.3 (11.2-15.7) g/dL Hct 37.7 (34.1-44.9) % MCV 84.7 (79.4-94.8) fL MCH 27.6 (25.6-32.2) pg MCHC 32.6 (32.2-35.5) g/dL RDW 17.3 H (11.7-14.4) % Plt Count 190 (182-369) x10^3/uL MPV 8.7 L (9.4-12.3) fL Gran % 67.8 (34.0-71.1) % Immature Gran % (Auto) 0.8 H (0.001-0.429) % Nucleat RBC Rel Count 0.0 (0.00-0.2) % Eos # (Auto) 0.30 (0.04-0.36) x10^3/uL Immature Gran # (Auto) 0.08 H (0.001-0.031) x10^3u/L Absolute Lymphs (auto) 2.08 (1.18-3.74) x10^3/uL Absolute Monos (auto) 0.67 (0.24-0.86) x10^3/uL Absolute Nucleated RBC 0.00 (0.00-0.012) x10^3u/L Lymphocytes % 21.0 (19.3-51.7) % Monocytes % 6.8 (4.7-12.5) % Eosinophils % 3.0 (0.7-5.8) % Basophils % 0.6 (0.1-1.2) % Absolute Granulocytes 6.73 H (1.56-6.13) x10^3/uL Basophils # 0.06 (0.01-0.08) x10^3/uL Sodium 137 (135-145) mmol/L Potassium 3.8 (3.5-5.1) mmol/L Chloride 94 L (98-107) mmol/L Carbon Dioxide 31 H (22-30) mmol/L Anion Gap 14.8 (5-15) MEQ/L BUN 34 H (7-17) mg/dL Creatinine 1.36 H (0.52-1.04) mg/dL Estimated GFR 38.2 ML/MIN Glucose 148 H (74-106) mg/dL POC Glucometer (74 to 106) mg/dL Hemoglobin A1c (4.5-6.0) % Calcium 9.7 (8.4-10.2) mg/dL Magnesium (1.6-2.3) mg/dL Total Bilirubin 0.60 (0.2-1.3) mg/dL AST 42 H (14-36) U/L ALT 57 H (0-35) U/L Alkaline Phosphatase 87 (38-126) U/L Troponin I < 0.012 (0.000-0.033) ng/mL NT-Pro-B Natriuret Pep (<300) pg/mL Serum Total Protein 7.2 (6.3-8.2) g/dL Albumin 4.2 (3.5-5.0) g/dL Prealbumin 29.58 (17.6-36.0) mg/dL Urine Color (Yellow) Urine Appearance (Clear) Urine pH (4.6-8.0) Ur Specific [place] (1.005-1.030) Urine Protein (Negative) Urine Glucose (UA) (Negative) mg/dL Urine Ketones (Negative) Urine Blood (Negative) Urine Nitrite (Negative) Urine Bilirubin (Negative) Urine Urobilinogen (0.2) mg/dL Ur Leukocyte Esterase (Negative) U Hyaline Cast (Auto) (0-2) /LPF Urine Microscopic RBC (0-5) /HPF Urine Microscopic WBC (0-5) /HPF Ur Epithelial Cells (None Seen) /HPF Urine Bacteria (None Seen) /HPF Urine Culture Reflexed (NO) 03/16/25 03/16/25 03/16/25 Range/Units 04:40 04:40 07:41 WBC (3.98-10.04) x10^3/uL RBC (3.93-5.22) x10^6/uL Hgb (11.2-15.7) g/dL Hct (34.1-44.9) % MCV (79.4-94.8) fL MCH (25.6-32.2) pg MCHC (32.2-35.5) g/dL RDW (11.7-14.4) % Plt Count (182-369) x10^3/uL MPV (9.4-12.3) fL Gran % (34.0-71.1) % Immature Gran % (Auto) (0.001-0.429) % Nucleat RBC Rel Count (0.00-0.2) % Eos # (Auto) (0.04-0.36) x10^3/uL Immature Gran # (Auto) (0.001-0.031) x10^3u/L Absolute Lymphs (auto) (1.18-3.74) x10^3/uL Absolute Monos (auto) (0.24-0.86) x10^3/uL Absolute Nucleated RBC (0.00-0.012) x10^3u/L Lymphocytes % (19.3-51.7) % Monocytes % (4.7-12.5) % Eosinophils % (0.7-5.8) % Basophils % (0.1-1.2) % Absolute Granulocytes (1.56-6.13) x10^3/uL Basophils # (0.01-0.08) x10^3/uL Sodium (135-145) mmol/L Potassium (3.5-5.1) mmol/L Chloride (98-107) mmol/L Carbon Dioxide (22-30) mmol/L Anion Gap (5-15) MEQ/L BUN (7-17) mg/dL Creatinine (0.52-1.04) mg/dL Estimated GFR ML/MIN Glucose (74-106) mg/dL POC Glucometer 141 H (74 to 106) mg/dL Hemoglobin A1c 6.76 H (4.5-6.0) % Calcium (8.4-10.2) mg/dL Magnesium (1.6-2.3) mg/dL Total Bilirubin (0.2-1.3) mg/dL AST (14-36) U/L ALT (0-35) U/L Alkaline Phosphatase (38-126) U/L Troponin I < 0.012 (0.000-0.033) ng/mL NT-Pro-B Natriuret Pep (<300) pg/mL Serum Total Protein (6.3-8.2) g/dL Albumin (3.5-5.0) g/dL Prealbumin (17.6-36.0) mg/dL Urine Color (Yellow) Urine Appearance (Clear) Urine pH (4.6-8.0) Ur Specific [place] (1.005-1.030) Urine Protein (Negative) Urine Glucose (UA) (Negative) mg/dL Urine Ketones (Negative) Urine Blood (Negative) Urine Nitrite (Negative) Urine Bilirubin (Negative) Urine Urobilinogen (0.2) mg/dL Ur Leukocyte Esterase (Negative) U Hyaline Cast (Auto) (0-2) /LPF Urine Microscopic RBC (0-5) /HPF Urine Microscopic WBC (0-5) /HPF Ur Epithelial Cells (None Seen) /HPF Urine Bacteria (None Seen) /HPF Urine Culture Reflexed (NO) - Radiology Exams Ordered Rad Exams-Entire Visit: Radiology Procedures Category Date Time Status FEMUR Stat Exams 03/15/25 16:44 Completed VENOUS UNILAT/LIMITED EXTREMIT [US] Stat Exams 03/15/25 16:43 Completed - Procedures and Test Procedures and Tests throughout Hospitalization: Therapy Orders & Screens 03/15/25 22:10 PT Eval & Treat ( Order) ONCE Reason for Eval:: debility Diagnosis: Leg pain, hypertension OT Eval and Treat (MD Order) ONCE Comment: Physician Instructions: Reason For Exam: debility Diagnosis: Leg pain, hypertension 03/15/25 22:56 Respiratory Therapy Assessment DAILY Comment: Diagnosis: Leg pain, hypertension 03/15/25 23:29 RT Screen per Nursing Assess ONCE Comment: Protocol Order Physician Instructions: Greater than 3 points order RT Admission Screen Reason For Exam: Triggered on Admission Diagnosis: Leg pain, hypertension Diagnosis: Leg pain, hypertension Pneumonia: No Home O2: No Asthma: No CHF: Yes Home CPAP/BIPAP: No Home Nebs/MDI: Yes Total Points: 8 03/16/25 07:30 OT Screen per Nursing Assess ONCE Comment: Protocol Order Physician Instructions: Greater than 3 points order OT Admission Screening Reason For Exam: Triggered on Admission Diagnosis: Leg pain, hypertension Open Wound/Cellutlitis/Pressure Ulcers: Yes Acute Fx/ORIF/Change in wt bearing status: No Severe MUSCULOSKELETAL pain: Yes ADL Dysfunction: Yes Acute CVA w/Hemiparesis/Hemiplegia: No Decreased Functional Mobility/Strength: Yes Sprain/Strain: No Acute Post-op Mobility Dysfunction: No Total Points: 14 PT Screen per Nursing Assess ONCE Comment: Protocol Order Physician Instructions: Greater than 3 points order PT Admission Screenin Reason For Exam: Triggered on Admission Diagnosis: Leg pain, hypertension Open Wound/Cellutlitis/Pressure Ulcers: Yes Acute Fx/ORIF/Change in wt bearing status: No Severe MUSCULOSKELETAL pain: Yes ADL Dysfunction: Yes Acute CVA w/Hemiparesis/Hemiplegia: No Decreased Functional Mobility/Strength: Yes Sprain/Strain: No Acute Post-op Mobility Dysfunction: No Total Points: 14 Discharge Exam General Appearance: no apparent distress, alert, obese Neurologic Exam: alert, oriented x 3, cooperative, normal mood/affect, nml cerebellar function, sensation nml, motor weakness, No motor deficits Eye Exam: PERRL, EOMI, eyes nml inspection Ears, Nose, Throat Exam: normal ENT inspection, pharynx normal, moist mucous membranes Neck Exam: normal inspection, non-tender, supple, full range of motion Respiratory Exam: normal breath sounds, lungs clear, No respiratory distress Cardiovascular Exam: regular rate/rhythm, normal heart sounds Gastrointestinal/Abdomen Exam: soft, No tenderness, No mass Pelvic Exam: deferred Rectal Exam: deferred Back Exam: normal inspection, normal range of motion, No CVA tenderness, No vertebral tenderness Extremity Exam: normal inspection, normal range of motion, tenderness (Right upper leg) Skin Exam: normal color, warm, dry Wound Assessment: Skin/Wound Assessment Wound/Incision Assessment Start: 03/15/25 23:29 Text: Status: Active Freq: Q6H Protocol: Document 03/16/25 08:00 CWB (Rec: 03/16/25 08:12 CWB [id number]) Wound/Incision Assessment Buttock Wound Assessment Shift Assessment Wound Type Pressure Ulcer Wound Stage Stage I Drainage Amount None Drainage Odor None/Absent General Appearance Open to air Comment barrier cream applied prn Right Upper Lateral Thigh Wound Assessment Shift Assessment Wound Type skin tear & lesion Wound Stage Non Pressure Wound General Appearance Open to air Comment AYAN Bilateral Abdominal Folds Wound Assessment Shift Assessment Wound Type gaulding Wound Stage Non Pressure Wound General Appearance Open to air,Reddened Wound Photo Photo Taken No Final Diagnosis/Problem List - Final Discharge Diagnosis/Problem (1) Musculoskeletal pain of right thigh Current Visit: Yes Status: Acute Assessment & Plan: - XR femur and venous duplex negative - IV narcotic pain control - Fall 6 weeks ago in PCP parking lot - No bruise or edema to area - PT eval - Pt would like to go to rehab - to discuss with caregiver and pt. Code(s): M79.651 - PAIN IN RIGHT THIGH (2) Elevated liver enzymes Current Visit: Yes Status: Acute Assessment & Plan: - AST 42. ALT 57- improving Code(s): R74.8 - ABNORMAL LEVELS OF OTHER SERUM ENZYMES (3) HTN (hypertension) Current Visit: Yes Status: Chronic Assessment & Plan: - BP elevated this AM- AM meds gave early - trend - In the setting of increased pain- may be causing Code(s): I10 - ESSENTIAL (PRIMARY) HYPERTENSION (4) Yeast infection of the skin Current Visit: No Status: Chronic Assessment & Plan: - Nystatin Code(s): B37.2 - CANDIDIASIS OF SKIN AND NAIL (5) Atrial fibrillation Current Visit: No Status: Chronic Assessment & Plan: - Continue Coreg - Tele - No currently on anticoagulation Code(s): I48.91 - UNSPECIFIED ATRIAL FIBRILLATION (6) CHF (congestive heart failure) Current Visit: No Status: Chronic Assessment & Plan: - Continue home meds - Not in acute exacerbation Code(s): I50.9 - HEART FAILURE, UNSPECIFIED (7) COPD (chronic obstructive pulmonary disease) Current Visit: No Status: Chronic Assessment & Plan: - Not in acute exacerbation - RA 93% - Continue home meds (8) CRF (chronic renal failure) Current Visit: No Status: Chronic Assessment & Plan: - Creat better than baseline (9) Hypothyroid Current Visit: No Status: Chronic Code(s): E03.9 - HYPOTHYROIDISM, UNSPECIFIED (10) Obesity (BMI 30-39.9) Current Visit: No Status: Chronic Assessment & Plan: - Advised ADA diet and exercise control Code(s): E66.9 - OBESITY, UNSPECIFIED (11) Type 2 diabetes mellitus Current Visit: No Status: Chronic Assessment & Plan: - A1c 6.76- controlled - Accuchecks ac/hs - Oral med and humalog s/s (12) Weakness Current Visit: No Status: Acute Assessment & Plan: - HHC and Pt in home- CM to set up for OP Code(s): R53.1 - WEAKNESS - Discharge Discharge Date: 03/16/25 Disposition: HOME HEALTH SERVICE Condition: Stable Prescriptions: Continue Carvedilol [Coreg ] 6.25 mg PO BID HydrALAzine HCL 25 MG TAB [Apresoline 25 MG TABLET] 25 mg PO TID Ondansetron [Ondansetron Odt ] 4 mg PO Q8H PRN PRN PRN Reason: Nausea Glimepiride 2 mg [Amaryl 2 MG] 2 mg PO DAILY Omeprazole 20 mg PO DAILY PRN PRN Reason: heartburn Fluticasone/Umeclidin/Vilanter [Trelegy Ellipta 100-62.5-25] 1 each IH DAILY levalbuterol HCl [Xopenex 1.25 MG/0.5 ML UD NEBULE] 1.25 mg IH DAILY PRN PRN PRN Reason: copd Potassium Chloride 10 meq PO BID Hydrocodone/Acetaminophen [Hydrocodone-Acetamin 10-325 mg] 1 tab PO Q6HPRN PRN PRN Reason: Pain Nystatin Powder 15 gm [Nystop Powder 15 gm] 1 gm TP BID PRN PRN Reason: Mild Pain Additional Instructions: [facility] HAS BEEN SET UP FOR YOU. THEY WILL CALL YOU TO ARRANGE A TIME TO COME SEE YOU. THEIR PHONE NUMBER IS [phone] IF YOU NEED ANYTHING PRIOR TO THEIR VISIT Follow up with: TRINH MINAYA MD [Primary Care Provider, INTERNAL MEDICINE] - 03/23/25 10:30 am Referral Note: [place] [facility]
[2025-03-16] MEDS: APRESOLINE 20 MG/ML INJ IV PRN (15:16)
[2025-03-16] MEDS: Apresoline 25 MG TABLET PO ONE (17:48)
[2025-03-17 07:40] VITALS: PULSE 71; RESP 16; O2SAT 97
[2025-03-17 08:02] VITALS: BP 126/89; TEMP 97
[2025-03-17] MEDS: SYNTHROID 25 MCG PO SCH (08:13)
--- NOTE | 2025-03-17 10:32 | PCM.DS ---
Discharge Summary Date of Admission: 03/15/25 21:52 Date of Discharge: 03/17/25 Admitting Physician: CELESTINE ESTRADA MD Consults: Consults on Case 03/15/25 22:09 Case Management [facility] Needs Assessment ROUTINE Primary Care Provider: MARIMAR,TRINH Allergies Allergies amoxicillin Allergy (Verified 03/15/25 16:18) levofloxacin [From Levaquin] Allergy (Verified 03/15/25 16:18) ofloxacin [From Floxin] Allergy (Verified 03/15/25 16:18) Sulfa (Sulfonamide Antibiotics) [Sulfa(Sulfonamide Antibiotics)] Allergy (Verified 03/15/25 16:18) adhesive tape Adverse Reaction (Verified 03/15/25 16:18) Hospital Summary - Hospital Course Hospital Course: 03/16/25 This is an 84-year-old female with a complex medical history including hearing loss, peripheral neuropathy, myelodysplastic syndrome, stage IV chronic kidney disease, congestive heart failure, diabetes, hypertension, hypothyroidism, dementia, GERD, atrial fibrillation, a history of pulmonary embolism (currently off anticoagulation), and COPD. She presented with right lower extremity pain extending from the knee upward, which has worsened following a fall six weeks ago in the parking lot of her primary care providers office. She denies chest pain or shortness of breath. Although there was an initial concern for a urinary tract infection due to foul-smelling urine, her urinalysis in the emergency department was unremarkable. Imaging of the right leg, including ultrasound and radiographs, did not reveal any acute abnormalities. The patient was deemed too weak to return home safely, and her daughter, who serves as her caregiver, is unable to meet the patients current care needs. Today, the patient continues to report right lower extremity pain, describing it as aching, and she has expressed a desire to be transferred home with C and PT in the home to regain strength. Case management will follow up with the patient and her daughter to discuss discharge planning . At this time, the patient denies any additional concerns. PT to eval for needs today. 03/17/25 The patient is resting in bed and was unable to be discharged yesterday due to elevated blood pressure. Her TSH was found to be elevated, and Synthroid was initiatedthis is a new medication for her. Ongoing thyroid management will require close outpatient follow-up with her primary care provider, as the dose will likely need to be titrated slowly given her multiple comorbidities. This morning, her blood pressure is stable following an increased dose of her antihypertensive medication. She will be discharged with a new prescription for this medication and will also need to follow up with her PCP for continued blood pressure management. The patient is ready for discharge and currently denies any further concerns. - Vitals & Intake/Output Vital Signs: Vital Signs Temperature 97 F 03/17/25 07:30 Pulse Rate 71 03/17/25 07:39 Respiratory Rate 16 03/17/25 07:39 Blood Pressure 126/89 03/17/25 07:30 O2 Sat by Pulse Oximetry 97 03/17/25 07:39 Intake & Output: Intake & Output 03/14/25 03/15/25 03/16/25 03/17/25 11:59 11:59 11:59 11:59 Intake Total 340 440 Output Total 400 250 Balance -60 190 Weight 92.4 kg - Lab Result Diagrams: 03/16/25 04:40 03/16/25 04:40 Lab Results-Last 24 Hrs: Lab Results-Last 24 Hours 03/16/25 03/16/25 03/16/25 Range/Units 05:12 11:30 16:36 POC Glucometer 154 H 143 H (74 to 106) mg/dL TSH 3rd Generation 10.790 H (0.470-4.680) mIU/L 03/16/25 03/17/25 Range/Units 21:47 07:39 POC Glucometer 157 H 130 H (74 to 106) mg/dL TSH 3rd Generation (0.470-4.680) mIU/L Micro Results-Entire Visit: Microbiology 03/15/25 17:24 Urine Culture - Final Catherized MIXED DILSHAD; 3 OR MORE TYPES. NO PREDOMINANT ORGANISM. NO FURTHER WORKUP. PLEASE RESUBMIT IF CLINICALLY INDICATED. Accuchecks Date 03/17/25 Time 07:53 - Radiology Exams Ordered Rad Exams-Entire Visit: Radiology Procedures Category Date Time Status FEMUR Stat Exams 03/15/25 16:44 Completed VENOUS UNILAT/LIMITED EXTREMIT [US] Stat Exams 03/15/25 16:43 Completed - Procedures and Test Procedures and Tests throughout Hospitalization: Therapy Orders & Screens 03/15/25 22:10 PT Eval & Treat ( Order) ONCE Reason for Eval:: debility Diagnosis: Leg pain, hypertension OT Eval and Treat (MD Order) ONCE Comment: Physician Instructions: Reason For Exam: debility Diagnosis: Leg pain, hypertension 03/15/25 22:56 Respiratory Therapy Assessment DAILY Comment: Diagnosis: Leg pain, hypertension 03/15/25 23:29 RT Screen per Nursing Assess ONCE Comment: Protocol Order Physician Instructions: Greater than 3 points order RT Admission Screen Reason For Exam: Triggered on Admission Diagnosis: Leg pain, hypertension Diagnosis: Leg pain, hypertension Pneumonia: No Home O2: No Asthma: No CHF: Yes Home CPAP/BIPAP: No Home Nebs/MDI: Yes Total Points: 8 03/16/25 07:30 OT Screen per Nursing Assess ONCE Comment: Protocol Order Physician Instructions: Greater than 3 points order OT Admission Screening Reason For Exam: Triggered on Admission Diagnosis: Leg pain, hypertension Open Wound/Cellutlitis/Pressure Ulcers: Yes Acute Fx/ORIF/Change in wt bearing status: No Severe MUSCULOSKELETAL pain: Yes ADL Dysfunction: Yes Acute CVA w/Hemiparesis/Hemiplegia: No Decreased Functional Mobility/Strength: Yes Sprain/Strain: No Acute Post-op Mobility Dysfunction: No Total Points: 14 PT Screen per Nursing Assess ONCE Comment: Protocol Order Physician Instructions: Greater than 3 points order PT Admission Screenin Reason For Exam: Triggered on Admission Diagnosis: Leg pain, hypertension Open Wound/Cellutlitis/Pressure Ulcers: Yes Acute Fx/ORIF/Change in wt bearing status: No Severe MUSCULOSKELETAL pain: Yes ADL Dysfunction: Yes Acute CVA w/Hemiparesis/Hemiplegia: No Decreased Functional Mobility/Strength: Yes Sprain/Strain: No Acute Post-op Mobility Dysfunction: No Total Points: 14 Discharge Exam General Appearance: no apparent distress, alert Neurologic Exam: alert, oriented x 3, cooperative, normal mood/affect, nml cerebellar function, sensation nml, motor weakness, No motor deficits Eye Exam: PERRL, EOMI, eyes nml inspection Ears, Nose, Throat Exam: normal ENT inspection, pharynx normal, moist mucous membranes Neck Exam: normal inspection, non-tender, supple, full range of motion Respiratory Exam: normal breath sounds, lungs clear, No respiratory distress Cardiovascular Exam: regular rate/rhythm, normal heart sounds Gastrointestinal/Abdomen Exam: soft, No tenderness, No mass Pelvic Exam: deferred Rectal Exam: deferred Back Exam: normal inspection, normal range of motion, No CVA tenderness, No vertebral tenderness Extremity Exam: normal inspection, normal range of motion Skin Exam: normal color, warm, dry Wound Assessment: Skin/Wound Assessment Wound/Incision Assessment Start: 03/15/25 23:29 Text: Status: Active Freq: Q6H Protocol: Document 03/17/25 08:00 KASHIFNAE (Rec: 03/17/25 09:21 [facility] [id number]) Wound/Incision Assessment Buttock Wound Assessment Shift Assessment Wound Type Pressure Ulcer Wound Stage Stage I Drainage Amount None Drainage Odor None/Absent General Appearance Open to air Comment barrier cream applied prn Right Upper Lateral Thigh Wound Assessment Shift Assessment Wound Type skin tear & lesion Wound Stage Non Pressure Wound General Appearance Open to air Bilateral Abdominal Folds Wound Assessment Shift Assessment Wound Type gaulding Wound Stage Non Pressure Wound General Appearance Open to air,Reddened Comment powder applied prn Wound Photo Photo Taken No Final Diagnosis/Problem List - Final Discharge Diagnosis/Problem (1) Musculoskeletal pain of right thigh Current Visit: Yes Status: Acute Code(s): M79.651 - PAIN IN RIGHT THIGH (2) Elevated liver enzymes Current Visit: Yes Status: Acute Code(s): R74.8 - ABNORMAL LEVELS OF OTHER SERUM ENZYMES (3) HTN (hypertension) Current Visit: Yes Status: Chronic Code(s): I10 - ESSENTIAL (PRIMARY) HYPERTENSION (4) Yeast infection of the skin Current Visit: No Status: Chronic Code(s): B37.2 - CANDIDIASIS OF SKIN AND NAIL (5) Atrial fibrillation Current Visit: No Status: Chronic Code(s): I48.91 - UNSPECIFIED ATRIAL FIBRILLATION (6) CHF (congestive heart failure) Current Visit: No Status: Chronic Code(s): I50.9 - HEART FAILURE, UNSPECIFIED (7) COPD (chronic obstructive pulmonary disease) Current Visit: No Status: Chronic (8) CRF (chronic renal failure) Current Visit: No Status: Chronic (9) Hypothyroid Current Visit: No Status: Chronic Code(s): E03.9 - HYPOTHYROIDISM, UNSPECIFIED (10) Obesity (BMI 30-39.9) Current Visit: No Status: Chronic Code(s): E66.9 - OBESITY, UNSPECIFIED (11) Type 2 diabetes mellitus Current Visit: No Status: Chronic (12) Weakness Current Visit: No Status: Acute Assessment & Plan: (1) Musculoskeletal pain of right thigh Current Visit: Yes Status: Acute Assessment & Plan: - XR femur and venous duplex negative - IV narcotic pain control - Fall 6 weeks ago in PCP parking lot - No bruise or edema to area - PT eval - Pt would like to go to rehab - to discuss with caregiver and pt. Code(s): M79.651 - PAIN IN RIGHT THIGH (2) Elevated liver enzymes Current Visit: Yes Status: Acute Assessment & Plan: - AST 42. ALT 57- improving Code(s): R74.8 - ABNORMAL LEVELS OF OTHER SERUM ENZYMES (3) HTN (hypertension) Current Visit: Yes Status: Chronic Assessment & Plan: - BP elevated this AM- AM meds gave early - trend - In the setting of increased pain- may be causing 03/16 - BP elevated in the evening- BP med increased and several PRN doses of medictaion to bring BP down gave 03/17 - BP stable with increased dose. - New RX sent in Code(s): I10 - ESSENTIAL (PRIMARY) HYPERTENSION (4) Yeast infection of the skin Current Visit: No Status: Chronic Assessment & Plan: - Nystatin Code(s): B37.2 - CANDIDIASIS OF SKIN AND NAIL (5) Atrial fibrillation Current Visit: No Status: Chronic Assessment & Plan: - Continue Coreg - Tele - No currently on anticoagulation- per daughter taken off by PCP Code(s): I48.91 - UNSPECIFIED ATRIAL FIBRILLATION (6) CHF (congestive heart failure) Current Visit: No Status: Chronic Assessment & Plan: - Continue home meds - Not in acute exacerbation Code(s): I50.9 - HEART FAILURE, UNSPECIFIED (7) COPD (chronic obstructive pulmonary disease) Current Visit: No Status: Chronic Assessment & Plan: - Not in acute exacerbation - RA 93% - Continue home meds (8) CRF (chronic renal failure) Current Visit: No Status: Chronic Assessment & Plan: - Creat better than baseline (9) Hypothyroid Current Visit: No Status: Chronic Code(s): E03.9 - HYPOTHYROIDISM, UNSPECIFIED - TSH 10.7 - was not on medication - Started synthroid 25mcg daily- will need f/u with PCP for mgnt (10) Obesity (BMI 30-39.9) Current Visit: No Status: Chronic Assessment & Plan: - Advised ADA diet and exercise control Code(s): E66.9 - OBESITY, UNSPECIFIED (11) Type 2 diabetes mellitus Current Visit: No Status: Chronic Assessment & Plan: - A1c 6.76- controlled - Accuchecks ac/hs - Oral med and humalog s/s (12) Weakness Current Visit: No Status: Acute Assessment & Plan: - HHC and Pt in home- CM to set up for OP Code(s): R53.1 - WEAKNESS Code(s): R53.1 - WEAKNESS - Discharge Discharge Date: 03/17/25 Disposition: HOME HEALTH SERVICE Condition: Stable Prescriptions: New HydrALAzine HCL 25 MG TAB [Apresoline 25 MG TABLET] 50 mg PO QID 30 Days #120 tablet Levothyroxine Sodium 25 Mcg [Synthroid 25 Mcg] 25 mcg PO QAM@0700 30 Days #30 tablet Continue Carvedilol [Coreg ] 6.25 mg PO BID Ondansetron [Ondansetron Odt ] 4 mg PO Q8H PRN PRN PRN Reason: Nausea Glimepiride 2 mg [Amaryl 2 MG] 2 mg PO DAILY Omeprazole 20 mg PO DAILY PRN PRN Reason: heartburn Fluticasone/Umeclidin/Vilanter [Trelegy Ellipta 100-62.5-25] 1 each IH DAILY levalbuterol HCl [Xopenex 1.25 MG/0.5 ML UD NEBULE] 1.25 mg IH DAILY PRN PRN PRN Reason: copd Potassium Chloride 10 meq PO BID Hydrocodone/Acetaminophen [Hydrocodone-Acetamin 10-325 mg] 1 tab PO Q6HPRN PRN PRN Reason: Pain Nystatin Powder 15 gm [Nystop Powder 15 gm] 1 gm TP BID PRN PRN Reason: Mild Pain Tobramycin/Dexamethasone [Tobramycin-Dexameth Ophth Susp] 1 drop OP QID Discontinued HydrALAzine HCL 25 MG TAB [Apresoline 25 MG TABLET] 25 mg PO TID Instructions: High blood pressure in adults Additional Instructions: [facility] HAS BEEN SET UP FOR YOU. THEY WILL CALL YOU TO ARRANGE A TIME TO COME SEE YOU. THEIR PHONE NUMBER IS [phone] IF YOU NEED ANYTHING PRIOR TO THEIR VISIT Follow up with: TRINH MINAYA MD [Primary Care Provider, INTERNAL MEDICINE] - 03/23/25 10:30 am Referral Note: [facility]
== END 2025-03-17 11:30 | disposition home health service (06) ==
LOC: ED 16:06 → MED SURG 21:52
PROVIDERS: ADMIT Internal Medicine; ATTEND Internal Medicine
DX: M79.651 Pain in right thigh (principal); L89.301 Pressure ulcer of unspecified buttock, stage 1; R74.8 Abnormal levels of other serum enzymes; E11.22 Type 2 diabetes mellitus with diabetic chronic kidney disease; I13.2 Hypertensive heart and chronic kidney disease with heart failure and with stage 5 chronic kidney disease, or end stage renal disease; N18.5 Chronic kidney disease, stage 5; I50.9 Heart failure, unspecified; B37.2 Candidiasis of skin and nail; I48.91 Unspecified atrial fibrillation; J44.9 Chronic obstructive pulmonary disease, unspecified; E03.9 Hypothyroidism, unspecified; E66.9 Obesity, unspecified; R53.1 Weakness; F03.90 Unspecified dementia, unspecified severity, without behavioral disturbance, psychotic disturbance, mood disturbance, and anxiety; Z79.899 Other long term (current) drug therapy; Z86.711 Personal history of pulmonary embolism
CPT/HCPCS: 36415; 73552; 80053; 81001; 82947; 83036; 83735; 83880; 84134; 84443; 84484; 85025; 87086; 93005; 93971; 94640; 94760; 96375; 99285; Q3014; 93268; J0360; J1644; J2270; A9270-GY; G0378

== ENCOUNTER 2025-03-26 14:57 | Observation (INO) | payer MEDICARE ==
[2025-03-26] MEDS ORDERED: Sodium Chloride 0.9% 1000 ML 1,000 ML ONE (15:11)
[2025-03-26] MEDS: Sodium Chloride 0.9% 1000 ML 1,000 ML IV STA (15:12)
[2025-03-26 15:15] LABS: Absolute Neutrophil Ct (ANC) 5.45 x10^3/uL (1.56-6.13); BASOPHIL % 0.5 % (0.1-1.2); Basophil (Absolute #) 0.04 x10^3/uL (0.01-0.08); Eosinophil % 1.3 % (0.7-5.8); Eosinophil (Absolute #) 0.11 x10^3/uL (0.04-0.36); Hematocrit 36.9 % (34.1-44.9); Hemoglobin 12.1 g/dL (11.2-15.7); IMMATURE GRAN # 0.05 x10^3u/L (0.001-0.031); IMMATURE GRAN % 0.6 % (0.001-0.429); Lymphocytes % 29.8 % (19.3-51.7); Mean Corpuscular Hemoglobin 28.2 pg (25.6-32.2); Mean Corpuscular Hgb Concent. 32.8 g/dL (32.2-35.5); Monocyte (Absolute #) 0.48 x10^3/uL (0.24-0.86); Monocytes % 5.5 % (4.7-12.5); Neutrophil % 62.3 % (34.0-71.1); Platelet Count 248 x10^3/uL (182-369); Red Blood Count 4.29 x10^6/uL (3.93-5.22); Red Cell Distribution Width 17.6 % (11.7-14.4); White Blood Count 8.7 x10^3/uL (3.98-10.04)
[2025-03-26 15:29] LABS: Creatinine 1 1.44 mg/dL (0.52-1.04); EST GLOMERULAR FILTRATION RATE 35.6 ML/MIN; Potassium 4.1 mmol/L (3.5-5.1)
[2025-03-26 15:30] LABS: ALBUMIN 4.5 g/dL (3.5-5.0); ANION GAP 13.6 MEQ/L (5-15); BILIRUBIN,TOTAL 0.6 mg/dL (0.2-1.3); Calcium 9.9 mg/dL (8.4-10.2); Total Protein 7.8 g/dL (6.3-8.2)
[2025-03-26 15:58] LABS: Appearance Clear (Clear); Bacteria None Seen /HPF (None Seen); Bilirubin Negative (Negative); Blood Negative (Negative); Epithelial Cells None Seen /HPF (None Seen); Glucose, Urine Negative (Negative); Ketones Negative (Negative); Leukocyte Esterase Negative (Negative); Nitrite Negative (Negative); Ph 5.5 (4.6-8.0); Protein,Urine Dip 300 (Negative); RBC 0-2 /HPF (0-5); Specific Gravity 1.015 (1.005-1.030); Urobilinogen 0.2 mg/dL (0.2)
--- NOTE | 2025-03-26 15:58 | XRAY ---
CLINICAL HISTORY: confusion COMPARISON: 04/17/2024 TECHNIQUE: Axial non-contrast CT scan of the brain was performed from the skull base to the high parietal region. One of the following dose reduction techniques were utilized for this exam: Automated exposure control, adjustment of the mA and/or kV according to patient size, use of iterative reconstruction. FINDINGS: No intracerebral or extra axial hematoma. No definite calvarium fractures. Age-related brain involutional changes are seen unchanged. Diffuse periventricular and subcortical white matter hypoattenuation seen, representing chronic microvascular ischemic changes. 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 No focal parenchymal abnormalities are demonstrated. Nguyen-white matter differentiation is maintained. No midline shifts or deformity. Normal CT appearance of the posterior fossa structures, namely the cerebellar hemispheres, brainstem and cerebellar peduncles. Scanned paranasal sinuses are clear apart from left maxillary sinusitis. Opacification of the mastoid air cells (stable). Classified vessels. Mild periorbital soft tissue swelling. IMPRESSION: 1. No intracerebral or extra axial hematoma. No acute insult. 2. No definite calvarium fractures. 3. Stable age-related brain involutional changes and chronic microvascular ischemic changes. 4. 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 No other significant interval changes. Electronically Signed by: Mauricio Christopher MD. (03/26/2025 15:55:55 EDT)
--- NOTE | 2025-03-26 16:09 | ERPHSYRPT ---
- History of Present Illness Time Seen by Provider: 03/26/25 16:04 Source: family Exam Limitations: clinical condition Patient Subjective Stated Complaint: patient was brought in by EMS for altered level of consciousness. EMS reports she has UTI history Triage Nursing Assessment: patient tracking with eyes but not verbal in responses. edema noted bilateral upper and lower extremities. colostomy bag , urine very concentrated with strong odor. patient noted in controlled afib on monitor dr. carrasquillo. Physician History: Patient is 84-year-old problem patient with multiple comorbid condition include atrial fibrillation congestive heart failure chronic kidney disease status post colectomy followed by colonic perforation multiple TIAs including pontine stroke diabetes severe osteoarthritis lumbosacral spine both knees hip COPD myelodysplastic syndrome has multiple ER visits in the last 6 months 2 weeks ago she was seen in ER she was seen in primary care office where 2 days ago it was decided to go for comfort measure and hospice care for which hospice team is coming to evaluate her tomorrow. She was doing all right till christmas bell ringer according to the daughter she ate pizza last night before that she has been sleeping a lot but she ate pizza and today morning when she went to check on her she was not talking she has a blank face and she was not answering her so she call ambulance and patient was brought into the emergency room. In the emergency room patient was responding to the pain but otherwise not able to answer any question. Timing/Duration: today Associated Symptoms: other (confusion) Allergies/Adverse Reactions: amoxicillin Allergy (Verified 03/15/25 16:18) levofloxacin [From Levaquin] Allergy (Verified 03/15/25 16:18) ofloxacin [From Floxin] Allergy (Verified 03/15/25 16:18) Sulfa (Sulfonamide Antibiotics) [Sulfa(Sulfonamide Antibiotics)] Allergy (Verified 03/15/25 16:18) adhesive tape Adverse Reaction (Verified 03/15/25 16:18) Home Medications: Carvedilol [Coreg ] 6.25 mg PO BID 03/18/24 [History] Glimepiride 2 mg [Amaryl 2 MG] 2 mg PO DAILY 03/30/24 [History] Omeprazole 20 mg PO DAILY PRN 03/30/24 [History] Ondansetron [Ondansetron Odt ] 4 mg PO Q8H PRN PRN 03/30/24 [History] Fluticasone/Umeclidin/Vilanter [Trelegy Ellipta 100-62.5-25] 1 each IH DAILY 11/21/24 [History] Potassium Chloride 10 meq PO BID 11/21/24 [History] levalbuterol HCl [Xopenex 1.25 MG/0.5 ML UD NEBULE] 1.25 mg IH DAILY PRN PRN 11/21/24 [History] Hydrocodone/Acetaminophen [Hydrocodone-Acetamin 10-325 mg] 1 tab PO Q6HPRN PRN 03/15/25 [History] Nystatin Powder 15 gm [Nystop Powder 15 gm] 1 gm TP BID PRN 03/15/25 [History] Tobramycin/Dexamethasone [Tobramycin-Dexameth Ophth Susp] 1 drop OP QID 03/17/25 [History] Hx Tetanus, Diphtheria Vaccination/Date Given: Yes Hx Influenza Vaccination/Date Given: Yes Hx Pneumococcal Vaccination/Date Given: Yes Travel Risk - International Travel Have you traveled outside of the country in past 3 weeks: No - Emerging Infectious Disease Are you exhibiting symptoms associated with any current EIDs: No Symptoms: Shortness of Breath - Review of Systems Constitutional: Fatigue, Lethargy, Weakness, No Fever, No Chills Eyes: No Symptoms Ears, Nose, & Throat: No Symptoms Respiratory: Dyspnea, Dyspnea on Exertion (CHANDLER), No Cough Cardiac: Edema, Palpitations, Syncope, Orthopnea, PND, No Chest Pain Abdominal/Gastrointestinal: No Abdominal Pain, No Nausea, No Vomiting, No Diarrhea Genitourinary Symptoms: No Dysuria Musculoskeletal: No Back Pain, No Neck Pain Skin: Cellulitis, Decubiti, No Rash Neurological: No Dizziness, No Focal Weakness, No Sensory Changes Psychological: No Symptoms Endocrine: No Symptoms All Other Systems: Reviewed and Negative - Past Medical History Pertinent Past Medical History: Yes Neurological History: Dementia, Peripheral Neuropathy ENT History: Cataracts Cardiac History: Congestive Heart Failure, Hypertension Respiratory History: COPD, Pulmonary Embolism, Sleep Apnea Endocrine Medical History: Diabetes Type II, Hypothyroidism Musculoskeletal History: Arthritis, Degenerative Disk Disease, Osteoarthritis, Rheumatoid Arthritis GI Medical History: Diverticulosis, Hemorrhoids, Hernia, Other History: Renal Disease Psycho-Social History: No Pertinent History Female Reproductive Disorders: No Pertinent History Other Medical History: PE, ARRYTHMIA, MYELODSYPLASTIC SYNDROME. PSH: CARDIAC CATH, HYSTERECTOMY, LUMPECTOMY, BASAL AND SQUAMOUS CELL CA. Stage 4 CKD, afib - Past Surgical History Past Surgical History: Yes Neuro Surgical History: No Pertinent History Cardiac: Cardiac Catheterization Respiratory: No Pertinent History Gastrointestinal: Other Genitourinary: No Pertinent History Musculoskeletal: No Pertinent History Female Surgical History: Hysterectomy, Lumpectomy Other Surgical History: breast tumor removed, tumor removed from back benign, 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, cauterization due to intestinal bleed, colon ruptured was septic and has colostomy Significant Family History: no pertinent family hx - Social History Smoking Status: Never smoker Exposure to second hand smoke: No Drug Use: none - Social Determinants of Health Will the patient participate in the screening: Declined to provide Do you worry about a steady place to live?: No In the past 12 months,have you had to go without utilities?: No Transportation Issues: No Has anyone in your support network made you feel unsafe?: No Have you or anyone in your house had to go w/o enough food: No - Nursing Vital Signs Nursing Vital Signs: Initial Vital Signs Temperature 97.1 F 03/26/25 14:58 Pulse Rate 71 03/26/25 14:58 Respiratory Rate 18 03/26/25 14:58 Blood Pressure 145/56 03/26/25 14:58 O2 Sat by Pulse Oximetry 97 03/26/25 14:58 - Physical Exam General Appearance: moderate distress, alert, lethargy Eye Exam: PERRL/EOMI, pale conjunctivae Ears, Nose, Throat Exam: normal ENT inspection, TMs normal, dry mucous membranes, pharyngeal erythema Neck Exam: normal inspection, non-tender, supple, full range of motion Respiratory Exam: diminished breath sounds, crackles/rales, rhonchi, wheezing, No respiratory distress Cardiovascular Exam: irregular, capillary refill >3 sec Gastrointestinal/Abdomen Exam: soft, normal bowel sounds, No tenderness, No distention, No mass, No guarding Back Exam: normal inspection, normal range of motion, No CVA tenderness, No vertebral tenderness Extremity Exam: normal range of motion, pelvis stable, inflammation, pedal edema, swelling Neurologic Exam: alert, disoriented, confusion, agitation, slurred speech, No motor deficits, No sensory deficit Skin Exam: warm, dry, ecchymosis, No rash Lymphatic Exam: No adenopathy SpO2 Interpretation: normal SpO2: 100 O2 Delivery: Room Air - Course Nursing assessment & vital signs reviewed: Yes EKG Interpreted by Me: A-fib - CT Exams Head CT Interpretation: Tele-radiologist Report (Pontine stroke) Ordered Tests: Active Orders 24 hr Category Date Time Status Oxygen-ED Only Nasal Cannula 2 lpm Care 03/26/25 15:01 Active Straigth Cath [Cath for Specimen-Straight] STAT Care 03/26/25 15:43 Active HEAD WITHOUT CONTRAST [CT] Stat Exams 03/26/25 15:01 Completed CBC W DIFF Stat Lab 03/26/25 15:10 Completed CMP Stat Lab 03/26/25 15:10 Completed CULTURE,URINE Stat Lab 03/26/25 15:00 Received UA W/RFX UR CULTURE Stat Lab 03/26/25 15:00 Completed Medication Summary Discontinued Medications Generic Name Dose Route Start Last Admin Trade Name Freq PRN Reason Stop Dose Admin Sodium Chloride 1,000 mls @ 999 mls/hr 03/26/25 15:01 03/26/25 15:12 Sodium Chloride 0.9% 1000 Ml IV 03/26/25 16:01 999 mls/hr .Q1H1M STA Administration Sodium Chloride Confirm 03/26/25 15:11 Sodium Chloride 0.9% 1000 Ml Administered 03/26/25 15:12 Dose 1,000 mls @ ud .ROUTE .STK-MED ONE Lab/Rad Data: Laboratory Result Diagrams 03/26/25 15:10 03/26/25 15:10 Laboratory Results 03/26/25 03/26/25 03/26/25 Range/Units 15:10 15:10 15:00 WBC 8.7 (3.98-10.04) x10^3/uL RBC 4.29 (3.93-5.22) x10^6/uL Hgb 12.1 (11.2-15.7) g/dL Hct 36.9 (34.1-44.9) % MCV 86.0 (79.4-94.8) fL MCH 28.2 (25.6-32.2) pg MCHC 32.8 (32.2-35.5) g/dL RDW 17.6 H (11.7-14.4) % Plt Count 248 (182-369) x10^3/uL MPV 9.0 L (9.4-12.3) fL Gran % 62.3 (34.0-71.1) % Immature Gran % (Auto) 0.6 H (0.001-0.429) % Nucleat RBC Rel Count 0.0 (0.00-0.2) % Eos # (Auto) 0.11 (0.04-0.36) x10^3/uL Immature Gran # (Auto) 0.05 H (0.001-0.031) x10^3u/L Absolute Lymphs (auto) 2.60 (1.18-3.74) x10^3/uL Absolute Monos (auto) 0.48 (0.24-0.86) x10^3/uL Absolute Nucleated RBC 0.00 (0.00-0.012) x10^3u/L Lymphocytes % 29.8 (19.3-51.7) % Monocytes % 5.5 (4.7-12.5) % Eosinophils % 1.3 (0.7-5.8) % Basophils % 0.5 (0.1-1.2) % Absolute Granulocytes 5.45 (1.56-6.13) x10^3/uL Basophils # 0.04 (0.01-0.08) x10^3/uL Sodium 137 (135-145) mmol/L Potassium 4.1 (3.5-5.1) mmol/L Chloride 102 (98-107) mmol/L Carbon Dioxide 26 (22-30) mmol/L Anion Gap 13.6 (5-15) MEQ/L BUN 31 H (7-17) mg/dL Creatinine 1.44 H (0.52-1.04) mg/dL Estimated GFR 35.6 ML/MIN Glucose 141 H (74-106) mg/dL Calcium 9.9 (8.4-10.2) mg/dL Total Bilirubin 0.60 (0.2-1.3) mg/dL AST 44 H (14-36) U/L ALT 24 (0-35) U/L Alkaline Phosphatase 84 (38-126) U/L Serum Total Protein 7.8 (6.3-8.2) g/dL Albumin 4.5 (3.5-5.0) g/dL Urine Color Yellow (Yellow) Urine Appearance Clear (Clear) Urine pH 5.5 (4.6-8.0) Ur Specific [place] 1.015 (1.005-1.030) Urine Protein 300 A (Negative) Urine Glucose (UA) Negative (Negative) mg/dL Urine Ketones Negative (Negative) Urine Blood Negative (Negative) Urine Nitrite Negative (Negative) Urine Bilirubin Negative (Negative) Urine Urobilinogen 0.2 (0.2) mg/dL Ur Leukocyte Esterase Negative (Negative) U Hyaline Cast (Auto) 11-20 (0-2) /LPF Urine Microscopic RBC 0-2 (0-5) /HPF Urine Microscopic WBC 3-5 (0-5) /HPF Ur Epithelial Cells None Seen (None Seen) /HPF Urine Bacteria None Seen (None Seen) /HPF Urine Culture Reflexed YES (NO) CLINICAL HISTORY: confusion COMPARISON: 04/17/2024 TECHNIQUE: Axial non-contrast CT scan of the brain was performed from the skull base to the high parietal region. One of the following dose reduction techniques were utilized for this exam: Automated exposure control, adjustment of the mA and/or kV according to patient size, use of iterative reconstruction. FINDINGS: No intracerebral or extra axial hematoma. No definite calvarium fractures. Age-related brain involutional changes are seen unchanged. Diffuse periventricular and subcortical white matter hypoattenuation seen, representing chronic microvascular ischemic changes. 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 No focal parenchymal abnormalities are demonstrated. Gnuyen-white matter differentiation is PatientID: [id number] Patient Name: CECY OMALLEY Exam Date: 03/26/2025 Procedure: HEAD WITHOUT CONTRAST page 1 of 2 maintained. No midline shifts or deformity. Normal CT appearance of the posterior fossa structures, namely the cerebellar hemispheres, brainstem and cerebellar peduncles. Scanned paranasal sinuses are clear apart from left maxillary sinusitis. Opacification of the mastoid air cells (stable). Classified vessels. Mild periorbital soft tissue swelling. IMPRESSION: 1. No intracerebral or extra axial hematoma. No acute insult. 2. No definite calvarium fractures. 3. Stable age-related brain involutional changes and chronic microvascular ischemic changes. 4. 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 No other significant interval changes. - Progress Progress: unchanged Progress Note: 03/26/25 16:28 I talked to patient's 2 daughter and son. I informed them about new onset of pontine stroke. Patient has already been scheduled for comfort measure and hospice care they are coming tomorrow to admit her in the afternoon. Her caregiver daughter is very exhausted so she requested to keep her overnight tonight so that she can make some arrangements at home. Will admit patient's as observation. Discussed with : Other (Hospitalist service) Will see patient in: hospital (observation) Counseled pt/family regarding: lab results, diagnosis, need for follow-up, rad results Medical Desision Making - Independent Historian Additional History obtained from: Family - Discussion of managment Agreed on:: Treatment plan, decision to admit, place in obs Will see patient: in hospital - Diagnostic Testing Diagnostic test were ordered, analyzed, and reviewed by me: Yes Radiological Interpretation: Teleradiologist Report - Risk of complications The pt has a high risk of morbidity or mortality based on: Decision regarding hospitilization or escalation of hosp level of care, Decision not to resucitate - Departure Departure Disposition: Home Clinical Impression: Cerebrovascular accident (CVA) of pontine structure, Decubitus ulcer of back, stage 2, Dehydration CHF (congestive heart failure), NYHA class III Qualifiers: Congestive heart failure type: combined Congestive heart failure chronicity: c hronic Qualified Code(s): I50.42 - Chronic combined systolic (congestive) and diastolic (congestive) heart failure CRF (chronic renal failure) Qualifiers: Chronic kidney disease stage: stage 3 (moderate) Chronic kidney disease stage 3 subtype: stage 3b (GFR 30-44) Qualified Code(s): N18.32 - Chronic kidney disease, stage 3b Diabetic neuropathy associated with type 2 diabetes mellitus Qualifiers: Diabetes mellitus complication detail: with other neurological complication Q ualified Code(s): E11.49 - Type 2 diabetes mellitus with other diabetic neurological complication Condition: Fair Critical Care Time: Yes Critical Care Time(excluding separately billable procedures): Critical 30-74 mins Referrals: TRINH MINAYA MD [Primary Care Provider, INTERNAL [facility]] - Follow up/PCP as directed Instructions: Heart Failure
[2025-03-26] MEDS ORDERED: Xopenex 1.25 MG/0.5 ML UD NEBULE IH PRN (17:09)
--- NOTE | 2025-03-26 17:39 | PCM.HP ---
<CAMILA TARANGO - Last Filed: 03/26/25 17:34> History of Present Illness - Chief Complaint Chief Complaint: stroke comfort measures only Date: 03/26/25 History of Present Illness: is a 84 year old female with a complex medical history including atrial fibrillation, congestive heart failure, chronic kidney disease (baseline creatinine ~1.5), diabetes mellitus, COPD, severe osteoarthritis of the lumbosacral spine, hips, and knees, myelodysplastic syndrome, and a history of multiple cerebrovascular events including prior TIAs and a known pontine stroke. She is also status post colectomy, complicated by a colonic perforation. Over the past six months, she has had frequent emergency department visits for various complications related to her chronic conditions. Despite ongoing outpatient management, her functional status has continued to decline, and she has become increasingly somnolent. Two days ago, she was evaluated in her primary care providers office, where it was collectively decided by the patients family and care team to pursue hospice care due to progressive deterioration and poor prognosis. A hospice admission is scheduled for tomorrow. Earlier this morning, the patient was noted by her daughter to be unresponsive and nonverbal, though she had eaten the night before around 11:30 p.m. On EMS arrival and subsequent evaluation in the emergency department as well as my interview, she was minimally responsive to painful stimuli. A non-contrast CT of the brain revealed no acute intracranial process but did show a new small left pontine lacunar infarct. This finding was discussed with the patients family, who remain in agreement with the plan for comfort measures only. Given her current state and the caregivers need to prepare the home for hospice support, the patient is being admitted overnight with a focus on comfort care. No further curative or disease-modifying interventions will be pursued. - Review of Systems All Other Systems: Unable due to condition Medications & Allergies Home Medications: Home Medication List Carvedilol [Coreg ] 6.25 mg PO BID 03/18/24 [History Confirmed 03/26/25] Glimepiride 2 mg [Amaryl 2 MG] 2 mg PO DAILY 03/30/24 [History Confirmed 03/26/25] Omeprazole 20 mg PO DAILY PRN 03/30/24 [History Confirmed 03/26/25] Ondansetron [Ondansetron Odt ] 4 mg PO Q8H PRN PRN 03/30/24 [History Confirmed 03/26/25] Fluticasone/Umeclidin/Vilanter [Trelegy Ellipta 100-62.5-25] 1 each IH DAILY 11/21/24 [History Confirmed 03/26/25] Potassium Chloride 10 meq PO BID 11/21/24 [History Confirmed 03/26/25] levalbuterol HCl [Xopenex 1.25 MG/0.5 ML UD NEBULE] 1.25 mg IH DAILY PRN PRN 11/21/24 [History Confirmed 03/26/25] Hydrocodone/Acetaminophen [Hydrocodone-Acetamin 10-325 mg] 1 tab PO Q6HPRN PRN 03/15/25 [History Confirmed 03/26/25] Nystatin Powder 15 gm [Nystop Powder 15 gm] 1 gm TP BID PRN 03/15/25 [History Confirmed 03/26/25] HydrALAzine HCL 25 MG TAB [Apresoline 25 MG TABLET] 50 mg PO QID 30 Days #120 tablet 03/17/25 [Rx Confirmed 03/26/25] Levothyroxine Sodium 25 Mcg [Synthroid 25 Mcg] 25 mcg PO QAM@0700 30 Days #30 tablet 03/17/25 [Rx Confirmed 03/26/25] Tobramycin/Dexamethasone [Tobramycin-Dexameth Ophth Susp] 1 drop OP QID 03/17/25 [History Confirmed 03/26/25] Allergies/Adverse Reactions: Allergies Allergy/AdvReac Type Severity Reaction Status Date / Time amoxicillin Allergy Verified 03/15/25 16:18 levofloxacin [From Levaquin] Allergy Verified 03/15/25 16:18 ofloxacin [From Floxin] Allergy Verified 03/15/25 16:18 Sulfa (Sulfonamide Allergy Verified 03/15/25 16:18 Antibiotics) [Sulfa(Sulfonamide Antibiotics)] adhesive tape AdvReac Verified 03/15/25 16:18 - Past Medical History Past Medical History: Yes Neurological History: Dementia, Peripheral Neuropathy ENT History: Cataracts Cardiac History: Congestive Heart Failure, Hypertension Respiratory History: COPD, Pulmonary Embolism, Sleep Apnea Endocrine Medical History: Diabetes Type II, Hypothyroidism Musculoskelatal History: Arthritis, Degenerative Disk Disease, Osteoarthritis, Rheumatoid Arthritis GI Medical History: Diverticulosis, Hemorrhoids, Hernia, Other History: Renal Disease Pyscho-Social History: No Pertinent History Reproductive Disorders: No Pertinent History Comment: PE, ARRYTHMIA, MYELODSYPLASTIC SYNDROME. PSH: CARDIAC CATH, HYSTERECTOMY, LUMPECTOMY, BASAL AND SQUAMOUS CELL CA. Stage 4 CKD, afib - Past Surgical History Past Surgical History: Yes Neuro Surgical History: No Pertinent History Cardiac History: Cardiac Catheterization Respiratory Surgery: No Pertinent History GI Surgical History: Other Genitourinary Surgical Hx: No Pertinent History Musculskeletal Surgical Hx: No Pertinent History Female Surgical History: Hysterectomy, Lumpectomy Other Surgical History: breast tumor removed, tumor removed from back benign, 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, cauterization due to intestinal bleed, colon ruptured was septic and has colostomy Significant Family History: no pertinent family hx - Social History Smoking Status: Never smoker Exposure to second hand smoke: No Alcohol: None Drug Use: none - Social Determinants of Health Will the patient participate in the screening: Declined to provide Do you worry about a steady place to live?: No In the past 12 months,have you had to go without utilities?: No Have you or anyone in your house had to go without enough: No Transportation Issues: No Has anyone in your support network made you feel unsafe?: No Does the patient want assistance with any of the above?: No - Physical Exam Vital Signs: Vital Signs - 24 hr Temp Pulse Resp BP BP Pulse Ox 03/26/25 17:11 68 18 100 03/26/25 16:32 100 03/26/25 16:01 77 12 180/68 99 03/26/25 15:31 71 20 145/71 100 03/26/25 15:03 145/56 99 03/26/25 14:58 97.1 F 71 18 145/56 97 General Appearance: no apparent distress Neurologic Exam: motor weakness, aphasia Neck Exam: normal inspection Respiratory Exam: normal breath sounds, lungs clear Cardiovascular Exam: regular rate/rhythm, normal heart sounds Gastrointestinal/Abdomen Exam: soft, normal bowel sounds Rectal Exam: deferred Back Exam: normal inspection Extremity Exam: normal inspection Skin Exam: dry, pale Results - Labs Lab/Micro Results: Lab Results-Last 24 Hours 03/26/25 03/26/2503/26/25 Range/Units 15:00 15:10 15:10 WBC 8.7 (3.98-10.04) x10^3/uL RBC 4.29 (3.93-5.22) x10^6/uL Hgb 12.1 (11.2-15.7) g/dL Hct 36.9 (34.1-44.9) % MCV 86.0 (79.4-94.8) fL MCH 28.2 (25.6-32.2) pg MCHC 32.8 (32.2-35.5) g/dL RDW 17.6 H (11.7-14.4) % Plt Count 248 (182-369) x10^3/uL MPV 9.0 L (9.4-12.3) fL Gran % 62.3 (34.0-71.1) % Immature Gran % (Auto) 0.6 H (0.001-0.429) % Nucleat RBC Rel Count 0.0 (0.00-0.2) % Eos # (Auto) 0.11 (0.04-0.36) x10^3/uL Immature Gran # (Auto) 0.05 H (0.001-0.031) x10^3u/L Absolute Lymphs (auto) 2.60 (1.18-3.74) x10^3/uL Absolute Monos (auto) 0.48 (0.24-0.86) x10^3/uL Absolute Nucleated RBC 0.00 (0.00-0.012) x10^3u/L Lymphocytes % 29.8 (19.3-51.7) % Monocytes % 5.5 (4.7-12.5) % Eosinophils % 1.3 (0.7-5.8) % Basophils % 0.5 (0.1-1.2) % Absolute Granulocytes 5.45 (1.56-6.13) x10^3/uL Basophils # 0.04 (0.01-0.08) x10^3/uL Sodium 137 (135-145) mmol/L Potassium 4.1 (3.5-5.1) mmol/L Chloride 102 (98-107) mmol/L Carbon Dioxide 26 (22-30) mmol/L Anion Gap 13.6 (5-15) MEQ/L BUN 31 H (7-17) mg/dL Creatinine 1.44 H (0.52-1.04) mg/dL Estimated GFR 35.6 ML/MIN Glucose 141 H (74-106) mg/dL Calcium 9.9 (8.4-10.2) mg/dL Total Bilirubin 0.60 (0.2-1.3) mg/dL AST 44 H (14-36) U/L ALT 24 (0-35) U/L Alkaline Phosphatase 84 (38-126) U/L Serum Total Protein 7.8 (6.3-8.2) g/dL Albumin 4.5 (3.5-5.0) g/dL Urine Color Yellow (Yellow) Urine Appearance Clear (Clear) Urine pH 5.5 (4.6-8.0) Ur Specific Moss 1.015 (1.005-1.030) Urine Protein 300 A (Negative) Urine Glucose (UA) Negative (Negative) mg/dL Urine Ketones Negative (Negative) Urine Blood Negative (Negative) Urine Nitrite Negative (Negative) Urine Bilirubin Negative (Negative) Urine Urobilinogen 0.2 (0.2) mg/dL Ur Leukocyte Esterase Negative (Negative) U Hyaline Cast (Auto) 11-20 (0-2) /LPF Urine Microscopic RBC 0-2 (0-5) /HPF Urine Microscopic WBC 3-5 (0-5) /HPF Ur Epithelial Cells None Seen (None Seen) /HPF Urine Bacteria None Seen (None Seen) /HPF Urine Culture Reflexed YES (NO) - Radiology Impressions Radiology Exams & Impressions: Radiology Procedures Category Date Time Status HEAD WITHOUT CONTRAST [CT] Stat Exams 03/26/25 15:01 Completed - Other Procedures and Tests Respiratory Therapy 03/26/25 17:08 Oxygen Nasal Cannula 2 lpm 03/26/25 17:09 Respiratory MDI BID Respiratory Therapy Assessment DAILY Assessment/Plan (1) Cerebrovascular accident (CVA) of pontine structure Current Visit: Yes Status: Acute Assessment & Plan: -No antiplatelet or anticoagulation initiated due to hospice transition and risk of bleeding -No imaging follow-up or neuro consult planned -Treat associated symptoms only: -Morphine for discomfort or dyspnea -Lorazepam for agitation or restlessness -Repositioning to prevent pressure injury due to immobility Code(s): I63.50 - CEREB INFRC DUE TO UNSP OCCLS OR STENOS OF UNSP CEREB ARTERY (2) Afib Current Visit: Yes Status: Acute Assessment & Plan: -No rate or rhythm control medications continued -No anticoagulation initiated due to stroke and hospice goals -Monitor only for visible signs of discomfort (e.g., dyspnea or anxiety) -Treat with morphine or lorazepam PRN if symptoms arise Code(s): I48.91 - UNSPECIFIED ATRIAL FIBRILLATION (3) CKD (chronic kidney disease) Current Visit: Yes Status: Acute Assessment & Plan: -No labs or electrolyte monitoring -Avoid nephrotoxic medications -Maintain oral comfort (swabs, sips of water) without aggressive hydration Code(s): N18.9 - CHRONIC KIDNEY DISEASE, UNSPECIFIED (4) Type 2 diabetes mellitus Current Visit: Yes Status: Acute Assessment & Plan: -No insulin or oral antihyperglycemics administered -No glucose monitoring unless clinically necessary (e.g., concern for hypoglycemia symptoms) -Watch for symptoms of hypoglycemia: -Treat with dextrose gel PO if alert and symptomatic (5) COPD (chronic obstructive pulmonary disease) Current Visit: Yes Status: Acute Assessment & Plan: -No nebulized or maintenance inhalers unless already on hand and preferred by patient/family -Oxygen PRN for dyspnea -Morphine PRN for air hunger -Elevate head of bed for comfort and ease of breathing (6) MDS (myelodysplastic syndrome) Current Visit: Yes Status: Acute Assessment & Plan: -No transfusions or hematologic interventions -No labs to monitor cytopenias -Monitor for bleeding or bruising: -Provide local measures only if bleeding occurs (gentle pressure, comfort- focused) Code(s): D46.9 - MYELODYSPLASTIC SYNDROME, UNSPECIFIED (7) Osteoarthritis Current Visit: Yes Status: Acute Assessment & Plan: -Morphine PRN for positional discomfort -Frequent repositioning and use of pillows for joint support -No physical therapy or mobility interventions -Passive [id number] only if tolerated and requested Code(s): M19.90 - UNSPECIFIED OSTEOARTHRITIS, UNSPECIFIED SITE (8) Declining functional status Current Visit: Yes Status: Acute Assessment & Plan: -No interventions to stimulate arousal or cognition -Allow natural progression of disease -Maintain gentle verbal contact if responsive; avoid stimulation if not -Repositioning, mouth care, and bedside presence prioritized Code(s): R53.81 - OTHER MALAISE (9) Decubitus ulcer of back, stage 2 Current Visit: Yes Status: Acute Assessment & Plan: -Assess and document stage and size (if not already done) -No aggressive debridement or wound VAC -Comfort-based wound care: -Clean with saline or gentle cleanser daily -Apply non-adherent, moisture-retentive dressing (e.g., hydrogel or foam) -Use barrier cream to prevent further skin breakdown -Reposition every 2 hours to offload pressure -Pain management with morphine PRN before dressing changes if needed Code(s): L89.102 - PRESSURE ULCER OF UNSPECIFIED PART OF BACK, STAGE 2 (10) CHF (congestive heart failure), NYHA class III Current Visit: Yes Status: Chronic Qualifiers: Congestive heart failure type: combined Congestive heart failure chronicity: chronic Qualified Code(s): I50.42 - Chronic combined systolic (congestive) and diastolic (congestive) heart failure Assessment & Plan: -No IV diuresis or cardiac medications -No echocardiography or cardiac workup planned -Oxygen PRN for dyspnea -Morphine PRN for air hunger or chest discomfort -NPO to avoid volume overload unless patient requests sips Code(s): I50.9 - HEART FAILURE, UNSPECIFIED (11) Comfort measures only status Current Visit: Yes Status: Acute Assessment & Plan: -Hospice admission scheduled for tomorrow -DNR/DNI confirmed -All care focused on comfort and dignity -No labs, imaging, IVs, or monitoring -Morphine 2 mg q2h PRN,Lorazepam 0.5 mg q4h PRN,Acetaminophen 650 mg q6h PRN, Oxygen 2 L/min NC PRN -Discontinue routine vitals unless changes in condition or for comfort assessment -Allow sips of water or ice chips if alert and requesting intake -Family requests jamil cath -Oral care q24h Code(s): Z51.5 - ENCOUNTER FOR PALLIATIVE CARE Telemedicine Encounter - Telemedicine Encounter Telemedicine Encounter: "The entirety of this encounter was performed via Telemedicine" This visit was performed using real-time audio and video connection between my location and thepatients locationwith the assistance of a surrogateat the patients location. Written or verbal consent was obtained from the patient/guardian to perform this visit using[facility] technology. Any patient questions regarding the telemedicine interaction were answered. <NOEL HERNANDEZ - Last Filed: 03/26/25 21:13> History of Present Illness - Chief Complaint History of Present Illness: is a 84 year old female. - Physical Exam Vital Signs: Vital Signs - 24 hr Temp Pulse Resp BP BP Pulse Ox 03/26/25 20:00 96.9 F 75 19 181/94 99 03/26/25 17:11 68 18 100 03/26/25 16:32 100 03/26/25 16:01 77 12 180/68 99 03/26/25 15:31 71 20 145/71 100 03/26/25 15:03 145/56 99 03/26/25 14:58 97.1 F 71 18 145/56 97 Wound Assessment: Skin/Wound Assessment Wound/Incision Assessment Start: 03/26/25 17:50 Text: Status: Active Freq: Q6H Protocol: Document 03/26/25 20:00 AK (Rec: 03/26/25 20:12 AK [id number]) Wound/Incision Assessment Right Lateral Thigh Wound Assessment Shift Assessment Wound Type Pressure Ulcer Drainage Amount None Drainage Odor None/Absent General Appearance Open to air,Reddened, Unapproximated Length (cm) (cm) 2 Width (cm) (cm) 3 Depth (cm) (cm) 0.1 Right Buttock Wound Assessment Shift Assessment Wound Type Pressure Ulcer Drainage Amount None Drainage Odor None/Absent General Appearance Open to air,Bleeding, Unapproximated Length (cm) (cm) 2 Width (cm) (cm) 1 Depth (cm) (cm) 0.2 Wound Photo Photo Taken No Results - Labs Lab/Micro Results: Lab Results-Last 24 Hours 03/26/25 03/26/25 03/26/25 Range/Units 15:00 15:10 15:10 WBC 8.7 (3.98-10.04) x10^3/uL RBC 4.29 (3.93-5.22) x10^6/uL Hgb 12.1 (11.2-15.7) g/dL Hct 36.9 (34.1-44.9) % MCV 86.0 (79.4-94.8) fL MCH 28.2 (25.6-32.2) pg MCHC 32.8 (32.2-35.5) g/dL RDW 17.6 H (11.7-14.4) % Plt Count 248 (182-369) x10^3/uL MPV 9.0 L (9.4-12.3) fL Gran % 62.3 (34.0-71.1) % Immature Gran % (Auto) 0.6 H (0.001-0.429) % Nucleat RBC Rel Count 0.0 (0.00-0.2) % Eos # (Auto) 0.11 (0.04-0.36) x10^3/uL Immature Gran # (Auto) 0.05 H (0.001-0.031) x10^3u/L Absolute Lymphs (auto) 2.60 (1.18-3.74) x10^3/uL Absolute Monos (auto) 0.48 (0.24-0.86) x10^3/uL Absolute Nucleated RBC 0.00 (0.00-0.012) x10^3u/L Lymphocytes % 29.8 (19.3-51.7) % Monocytes % 5.5 (4.7-12.5) % Eosinophils % 1.3 (0.7-5.8) % Basophils % 0.5 (0.1-1.2) % Absolute Granulocytes 5.45 (1.56-6.13) x10^3/uL Basophils # 0.04 (0.01-0.08) x10^3/uL Sodium 137 (135-145) mmol/L Potassium 4.1 (3.5-5.1) mmol/L Chloride 102 (98-107) mmol/L Carbon Dioxide 26 (22-30) mmol/L Anion Gap 13.6 (5-15) MEQ/L BUN 31 H (7-17) mg/dL Creatinine 1.44 H (0.52-1.04) mg/dL Estimated GFR 35.6 ML/MIN Glucose 141 H (74-106) mg/dL Calcium 9.9 (8.4-10.2) mg/dL Total Bilirubin 0.60 (0.2-1.3) mg/dL AST 44 H (14-36) U/L ALT 24 (0-35) U/L Alkaline Phosphatase 84 (38-126) U/L Serum Total Protein 7.8 (6.3-8.2) g/dL Albumin 4.5 (3.5-5.0) g/dL Prealbumin (17.6-36.0) mg/dL Urine Color Yellow (Yellow) Urine Appearance Clear (Clear) Urine pH 5.5 (4.6-8.0) Ur Specific Moss 1.015 (1.005-1.030) Urine Protein 300 A (Negative) Urine Glucose (UA) Negative (Negative) mg/dL Urine Ketones Negative (Negative) Urine Blood Negative (Negative) Urine Nitrite Negative (Negative) Urine Bilirubin Negative (Negative) Urine Urobilinogen 0.2 (0.2) mg/dL Ur Leukocyte Esterase Negative (Negative) U Hyaline Cast (Auto) 11-20 (0-2) /LPF Urine Microscopic RBC 0-2 (0-5) /HPF Urine Microscopic WBC 3-5 (0-5) /HPF Ur Epithelial Cells None Seen (None Seen) /HPF Urine Bacteria None Seen (None Seen) /HPF Urine Culture Reflexed YES (NO) 03/26/25 Range/Units 16:00 WBC (3.98-10.04) x10^3/uL RBC (3.93-5.22) x10^6/uL Hgb (11.2-15.7) g/dL Hct (34.1-44.9) % MCV (79.4-94.8) fL MCH (25.6-32.2) pg MCHC (32.2-35.5) g/dL RDW (11.7-14.4) % Plt Count (182-369) x10^3/uL MPV (9.4-12.3) fL Gran % (34.0-71.1) % Immature Gran % (Auto) (0.001-0.429) % Nucleat RBC Rel Count (0.00-0.2) % Eos # (Auto) (0.04-0.36) x10^3/uL Immature Gran # (Auto) (0.001-0.031) x10^3u/L Absolute Lymphs (auto) (1.18-3.74) x10^3/uL Absolute Monos (auto) (0.24-0.86) x10^3/uL Absolute Nucleated RBC (0.00-0.012) x10^3u/L Lymphocytes % (19.3-51.7) % Monocytes % (4.7-12.5) % Eosinophils % (0.7-5.8) % Basophils % (0.1-1.2) % Absolute Granulocytes (1.56-6.13) x10^3/uL Basophils # (0.01-0.08) x10^3/uL Sodium (135-145) mmol/L Potassium (3.5-5.1) mmol/L Chloride (98-107) mmol/L Carbon Dioxide (22-30) mmol/L Anion Gap (5-15) MEQ/L BUN (7-17) mg/dL Creatinine (0.52-1.04) mg/dL Estimated GFR ML/MIN Glucose (74-106) mg/dL Calcium (8.4-10.2) mg/dL Total Bilirubin (0.2-1.3) mg/dL AST (14-36) U/L ALT (0-35) U/L Alkaline Phosphatase (38-126) U/L Serum Total Protein (6.3-8.2) g/dL Albumin (3.5-5.0) g/dL Prealbumin 30.41 (17.6-36.0) mg/dL Urine Color (Yellow) Urine Appearance (Clear) Urine pH (4.6-8.0) Ur Specific Moss (1.005-1.030) Urine Protein (Negative) Urine Glucose (UA) (Negative) mg/dL Urine Ketones (Negative) Urine Blood (Negative) Urine Nitrite (Negative) Urine Bilirubin (Negative) Urine Urobilinogen (0.2) mg/dL Ur Leukocyte Esterase (Negative) U Hyaline Cast (Auto) (0-2) /LPF Urine Microscopic RBC (0-5) /HPF Urine Microscopic WBC (0-5) /HPF Ur Epithelial Cells (None Seen) /HPF Urine Bacteria (None Seen) /HPF Urine Culture Reflexed (NO) - Radiology Impressions Radiology Exams & Impressions: Radiology Procedures Category Date Time Status HEAD WITHOUT CONTRAST [CT] Stat Exams 03/26/25 15:01 Completed - Other Procedures and Tests Respiratory Therapy 03/26/25 17:08 Oxygen Nasal Cannula 2 lpm 03/26/25 17:09 Respiratory MDI BID Respiratory Therapy Assessment DAILY Telemedicine Encounter - Telemedicine Encounter Telemedicine Encounter: "The entirety of this encounter was performed via Telemedicine" This visit was performed using real-time audio and video connection between my location and thepatients locationwith the assistance of a surrogateat the patients location. Written or verbal consent was obtained from the patient/guardian to perform this visit [email or web address] [email or web address] technology. Any patient questions regarding the telemedicine interaction were answered. LOGAN Encounter - LOGAN Encounter Attestation LOGAN Encounter Attestation: "CECY Curiel andhavediscussed pertinent aspects of their care with Camila Galvan agree with the history, physical exam (any modifications based on my personal exam will be noted below), assessment, and plan as outlined in original note. Please see immediately below for my summary of findings and additional assessment and plan along with any meaningful corrections/explanations to the Subjective/Objective portions of the LOGAN note will be noted." My portion of the encounter took place via telemedicine. -Patient with multiple medical problems, with planned transition to home hospice on thursday after a recent appointment with PCP, now admitted with new stroke. Patient admitted for comfort measures and to provide some respite to family while hospice comes and evaluates patient tomorrow. Will have our correctional case records supervisor talk to patient's family tomorrow.
[2025-03-26] MEDS ORDERED: Zofran 4 MG/2 ML VIAL IV PRN (17:54)
[2025-03-26] MEDS ORDERED: Ativan 2 MG/1 ML VIAL IM PRN (17:54)
[2025-03-26] MEDS ORDERED: NYSTOP POWDER 15 GM TP PRN (18:00)
[2025-03-26] MEDS: MORPHINE SULFATE 2 MG INJ IV PRN (18:40)
[2025-03-26] MEDS: Sodium Chloride 0.9% 1000 ML 1,000 ML IV SCH (18:40)
[2025-03-26] MEDS: Advair Hfa 115/21 Common canister IH SCH (20:14)
[2025-03-27 07:31] VITALS: BP 133/58; PULSE 65; RESP 16; TEMP 97.6; O2SAT 95
[2025-03-27] MEDS ORDERED: Spiriva 18 Mcg/Cap Inhaler IH SCH (10:00)
--- NOTE | 2025-03-27 11:17 | PCM.DS ---
Discharge Summary Date of Admission: 03/26/25 16:50 Date of Discharge: 03/27/25 Admitting Physician: NOEL HERNANDEZ MD Primary Care Provider: TRINH MINAYA Allergies Allergies amoxicillin Allergy (Verified 03/15/25 16:18) levofloxacin [From Levaquin] Allergy (Verified 03/15/25 16:18) ofloxacin [From Floxin] Allergy (Verified 03/15/25 16:18) Sulfa (Sulfonamide Antibiotics) [Sulfa(Sulfonamide Antibiotics)] Allergy (Verified 03/15/25 16:18) adhesive tape Adverse Reaction (Verified 03/15/25 16:18) Hospital Summary - Hospital Course Hospital Course: The patient is an 84-year-old female with a complex medical history, including atrial fibrillation, congestive heart failure, chronic kidney disease (baseline creatinine ~1.5), diabetes mellitus, COPD, severe osteoarthritis, myelodysplastic syndrome, and a history of multiple cerebrovascular events, including prior TIAs and a known pontine stroke. She is also status post colectomy complicated by a colonic perforation. Over the past six months, she experiences frequent emergency department visits for complications related to her chronic conditions, and despite ongoing outpatient management, her functional status continues to decline. She has become increasingly somnolent. Two days ago, she was evaluated in her primary care providers office, where a collective decision was made by the family and care team to pursue hospice care due to her progressive deterioration and poor prognosis. Hospice admission is scheduled for today. Yesterday morning, her daughter found her unresponsive and nonverbal, though she reportedly ate the night before around 11:30 p.m. EMS transported her to the emergency department, where she was noted to be minimally responsive to painful stimuli. A non-contrast CT of the brain showed no acute intracranial process but reveals a new small left pontine lacunar infarct. This finding was discussed with the family, who remained in agreement with the plan for comfort-focused care. The patient was admitted overnight to allow time for the family to prepare the home for hospice services. She remains hemodynamically stable, and no further curative or disease-modifying interventions are planned. She is scheduled for discharge home today with hospice, per family request, under comfort measures only. - Vitals & Intake/Output Vital Signs: Vital Signs Temperature 97.6 F 03/27/25 07:30 Pulse Rate 65 03/27/25 07:30 Respiratory Rate 16 03/27/25 07:30 Blood Pressure 133/58 03/27/25 07:30 O2 Sat by Pulse Oximetry 95 03/27/25 07:30 Intake & Output: Intake & Output 03/24/25 03/25/25 03/26/25 03/27/25 11:59 11:59 11:59 11:59 Intake Total 479 Output Total 150 Balance 329 Weight 91 kg - Lab Result Diagrams: 03/26/25 15:10 03/26/25 15:10 Lab Results-Last 24 Hrs: Lab Results-Last 24 Hours 03/26/25 03/26/25 03/26/25 Range/Units 15:00 15:10 15:10 WBC 8.7 (3.98-10.04) x10^3/uL RBC 4.29 (3.93-5.22) x10^6/uL Hgb 12.1 (11.2-15.7) g/dL Hct 36.9 (34.1-44.9) % MCV 86.0 (79.4-94.8) fL MCH 28.2 (25.6-32.2) pg MCHC 32.8 (32.2-35.5) g/dL RDW 17.6 H (11.7-14.4) % Plt Count 248 (182-369) x10^3/uL MPV 9.0 L (9.4-12.3) fL Gran % 62.3 (34.0-71.1) % Immature Gran % (Auto) 0.6 H (0.001-0.429) % Nucleat RBC Rel Count 0.0 (0.00-0.2) % Eos # (Auto) 0.11 (0.04-0.36) x10^3/uL Immature Gran # (Auto) 0.05 H (0.001-0.031) x10^3u/L Absolute Lymphs (auto) 2.60 (1.18-3.74) x10^3/uL Absolute Monos (auto) 0.48 (0.24-0.86) x10^3/uL Absolute Nucleated RBC 0.00 (0.00-0.012) x10^3u/L Lymphocytes % 29.8 (19.3-51.7) % Monocytes % 5.5 (4.7-12.5) % Eosinophils % 1.3 (0.7-5.8) % Basophils % 0.5 (0.1-1.2) % Absolute Granulocytes 5.45 (1.56-6.13) x10^3/uL Basophils # 0.04 (0.01-0.08) x10^3/uL Sodium 137 (135-145) mmol/L Potassium 4.1 (3.5-5.1) mmol/L Chloride 102 (98-107) mmol/L Carbon Dioxide 26 (22-30) mmol/L Anion Gap 13.6 (5-15) MEQ/L BUN 31 H (7-17) mg/dL Creatinine 1.44 H (0.52-1.04) mg/dL Estimated GFR 35.6 ML/MIN Glucose 141 H (74-106) mg/dL Calcium 9.9 (8.4-10.2) mg/dL Total Bilirubin 0.60 (0.2-1.3) mg/dL AST 44 H (14-36) U/L ALT 24 (0-35) U/L Alkaline Phosphatase 84 (38-126) U/L Serum Total Protein 7.8 (6.3-8.2) g/dL Albumin 4.5 (3.5-5.0) g/dL Prealbumin (17.6-36.0) mg/dL Urine Color Yellow (Yellow) Urine Appearance Clear (Clear) Urine pH 5.5 (4.6-8.0) Ur Specific [place] 1.015 (1.005-1.030) Urine Protein 300 A (Negative) Urine Glucose (UA) Negative (Negative) mg/dL Urine Ketones Negative (Negative) Urine Blood Negative (Negative) Urine Nitrite Negative (Negative) Urine Bilirubin Negative (Negative) Urine Urobilinogen 0.2 (0.2) mg/dL Ur Leukocyte Esterase Negative (Negative) U Hyaline Cast (Auto) 11-20 (0-2) /LPF Urine Microscopic RBC 0-2 (0-5) /HPF Urine Microscopic WBC 3-5 (0-5) /HPF Ur Epithelial Cells None Seen (None Seen) /HPF Urine Bacteria None Seen (None Seen) /HPF Urine Culture Reflexed YES (NO) 03/26/25 Range/Units 16:00 WBC (3.98-10.04) x10^3/uL RBC (3.93-5.22) x10^6/uL Hgb (11.2-15.7) g/dL Hct (34.1-44.9) % MCV (79.4-94.8) fL MCH (25.6-32.2) pg MCHC (32.2-35.5) g/dL RDW (11.7-14.4) % Plt Count (182-369) x10^3/uL MPV (9.4-12.3) fL Gran % (34.0-71.1) % Immature Gran % (Auto) (0.001-0.429) % Nucleat RBC Rel Count (0.00-0.2) % Eos # (Auto) (0.04-0.36) x10^3/uL Immature Gran # (Auto) (0.001-0.031) x10^3u/L Absolute Lymphs (auto) (1.18-3.74) x10^3/uL Absolute Monos (auto) (0.24-0.86) x10^3/uL Absolute Nucleated RBC (0.00-0.012) x10^3u/L Lymphocytes % (19.3-51.7) % Monocytes % (4.7-12.5) % Eosinophils % (0.7-5.8) % Basophils % (0.1-1.2) % Absolute Granulocytes (1.56-6.13) x10^3/uL Basophils # (0.01-0.08) x10^3/uL Sodium (135-145) mmol/L Potassium (3.5-5.1) mmol/L Chloride (98-107) mmol/L Carbon Dioxide (22-30) mmol/L Anion Gap (5-15) MEQ/L BUN (7-17) mg/dL Creatinine (0.52-1.04) mg/dL Estimated GFR ML/MIN Glucose (74-106) mg/dL Calcium (8.4-10.2) mg/dL Total Bilirubin (0.2-1.3) mg/dL AST (14-36) U/L ALT (0-35) U/L Alkaline Phosphatase (38-126) U/L Serum Total Protein (6.3-8.2) g/dL Albumin (3.5-5.0) g/dL Prealbumin 30.41 (17.6-36.0) mg/dL Urine Color (Yellow) Urine Appearance (Clear) Urine pH (4.6-8.0) Ur Specific [place] (1.005-1.030) Urine Protein (Negative) Urine Glucose (UA) (Negative) mg/dL Urine Ketones (Negative) Urine Blood (Negative) Urine Nitrite (Negative) Urine Bilirubin (Negative) Urine Urobilinogen (0.2) mg/dL Ur Leukocyte Esterase (Negative) U Hyaline Cast (Auto) (0-2) /LPF Urine Microscopic RBC (0-5) /HPF Urine Microscopic WBC (0-5) /HPF Ur Epithelial Cells (None Seen) /HPF Urine Bacteria (None Seen) /HPF Urine Culture Reflexed (NO) Micro Results-Entire Visit: Microbiology 03/26/25 15:00 Urine Culture - Preliminary Urine, Catheterized NO GROWTH TO DATE - Radiology Exams Ordered Rad Exams-Entire Visit: Radiology Procedures Category Date Time Status HEAD WITHOUT CONTRAST [CT] Stat Exams 03/26/25 15:01 Completed - Procedures and Test Procedures and Tests throughout Hospitalization: Therapy Orders & Screens 03/26/25 17:08 Oxygen Nasal Cannula 2 lpm Comment: 03/26/25 17:09 Respiratory MDI BID Comment: Respiratory Therapy Assessment DAILY Comment: 03/26/25 17:50 OT Screen per Nursing Assess ONCE Comment: Protocol Order Physician Instructions: Greater than 3 points order OT Admission Screening Reason For Exam: Triggered on Admission Diagnosis: stroke comfort measures only Open Wound/Cellutlitis/Pressure Ulcers: Yes Acute Fx/ORIF/Change in wt bearing status: No Severe MUSCULOSKELETAL pain: Yes ADL Dysfunction: Yes Acute CVA w/Hemiparesis/Hemiplegia: Yes Decreased Functional Mobility/Strength: Yes Sprain/Strain: No Acute Post-op Mobility Dysfunction: No Total Points: 19 PT Screen per Nursing Assess ONCE Comment: Protocol Order Physician Instructions: Greater than 3 points order PT Admission Screenin Reason For Exam: Triggered on Admission Diagnosis: stroke comfort measures only Open Wound/Cellutlitis/Pressure Ulcers: Yes Acute Fx/ORIF/Change in wt bearing status: No Severe MUSCULOSKELETAL pain: Yes ADL Dysfunction: Yes Acute CVA w/Hemiparesis/Hemiplegia: Yes Decreased Functional Mobility/Strength: Yes Sprain/Strain: No Acute Post-op Mobility Dysfunction: No Total Points: 19 RT Screen per Nursing Assess ONCE Comment: Protocol Order Physician Instructions: Greater than 3 points order RT Admission Screen Reason For Exam: Triggered on Admission Diagnosis: stroke comfort measures only Diagnosis: stroke comfort measures only Pneumonia: No Home O2: No Asthma: No CHF: Yes Home CPAP/BIPAP: No Home Nebs/MDI: Yes Total Points: 8 ST Screen per Nursing Assess ONCE Comment: Protocol Order Physician Instructions: Greater than [address] Admission Screening Reason For Exam: Triggered on Admission Diagnosis: stroke comfort measures only CVA/Dysphagia/Aphasia: Yes Cognitive Deficits: Yes Dehydration/Nutrition Deficit: Yes Reflux: Yes Oral-Motor Difficulties: Yes Pneumonia: No Long Term Resident: No Total Points: 19 03/26/25 17:54 Respiratory Therapy Consult ONCE Comment: Reason For Exam: Diagnosis: stroke comfort measures only Discharge Exam General Appearance: no apparent distress, lethargy Neurologic Exam: disoriented, motor weakness, other (not alert or responsive to stimuli), No motor deficits Eye Exam: PERRL, EOMI, eyes nml inspection Ears, Nose, Throat Exam: normal ENT inspection, pharynx normal, moist mucous membranes Neck Exam: normal inspection, non-tender, supple Respiratory Exam: normal breath sounds, lungs clear, No respiratory distress Cardiovascular Exam: normal heart sounds, irregular Gastrointestinal/Abdomen Exam: soft, No tenderness, No mass Pelvic Exam: deferred Rectal Exam: deferred Back Exam: normal inspection, normal range of motion, No CVA tenderness, No vertebral tenderness Extremity Exam: normal inspection Skin Exam: normal color, warm, dry Wound Assessment: Skin/Wound Assessment Wound/Incision Assessment Start: 03/26/25 17:50 Text: Status: Active Freq: Q6H Protocol: Document 03/27/25 02:00 ALYX (Rec: 03/27/25 02:25 AK [id number]) Wound/Incision Assessment Right Lateral Thigh Wound Assessment Shift Assessment Wound Type Pressure Ulcer Dressing Status Dry & Intact Drainage Amount None Drainage Odor None/Absent General Appearance Open to air,Reddened, Unapproximated Length (cm) (cm) 2 Width (cm) (cm) 3 Depth (cm) (cm) 0.1 Primary Dressing mepilex border Right Buttock Wound Assessment Shift Assessment Wound Type Pressure Ulcer Dressing Status Dry & Intact Drainage Amount None Drainage Odor None/Absent General Appearance Open to air,Bleeding, Unapproximated Length (cm) (cm) 2 Width (cm) (cm) 1 Depth (cm) (cm) 0.2 Primary Dressing mepilex border Wound Photo Photo Taken No Final Diagnosis/Problem List - Final Discharge Diagnosis/Problem (1) Cerebrovascular accident (CVA) of pontine structure Current Visit: Yes Status: Acute Code(s): I63.50 - CEREB INFRC DUE TO UNSP OCCLS OR STENOS OF UNSP CEREB ARTERY (2) Afib Current Visit: Yes Status: Acute Code(s): I48.91 - UNSPECIFIED ATRIAL FIBRILLATION (3) CKD (chronic kidney disease) Current Visit: Yes Status: Acute Code(s): N18.9 - CHRONIC KIDNEY DISEASE, UNSPECIFIED (4) Comfort measures only status Current Visit: Yes Status: Acute Code(s): Z51.5 - ENCOUNTER FOR PALLIATIVE CARE (5) Declining functional status Current Visit: Yes Status: Acute Code(s): R53.81 - OTHER MALAISE (6) Decubitus ulcer of back, stage 2 Current Visit: Yes Status: Acute Code(s): L89.102 - PRESSURE ULCER OF UNSPECIFIED PART OF BACK, STAGE 2 (7) MDS (myelodysplastic syndrome) Current Visit: Yes Status: Acute Code(s): D46.9 - MYELODYSPLASTIC SYNDROME, UNSPECIFIED (8) Osteoarthritis Current Visit: Yes Status: Acute Code(s): M19.90 - UNSPECIFIED OSTEOARTHRITIS, UNSPECIFIED SITE (9) Type 2 diabetes mellitus Current Visit: Yes Status: Acute (10) CHF (congestive heart failure), NYHA class III Current Visit: Yes Status: Chronic Code(s): I50.9 - HEART FAILURE, UNSPECIFIED (11) COPD exacerbation Current Visit: No Status: Acute Assessment & Plan: (1) Cerebrovascular accident (CVA) of pontine structure Current Visit: Yes Status: Acute Assessment & Plan: -No antiplatelet or anticoagulation initiated due to hospice transition and risk of bleeding -No imaging follow-up or neuro consult planned -Treat associated symptoms only: -Morphine for discomfort or dyspnea -Lorazepam for agitation or restlessness -Repositioning to prevent pressure injury due to immobility - D/c today on hospice Code(s): I63.50 - CEREB INFRC DUE TO UNSP OCCLS OR STENOS OF UNSP CEREB ARTERY (2) Afib Current Visit: Yes Status: Acute Assessment & Plan: -No rate or rhythm control medications continued -No anticoagulation initiated due to stroke and hospice goals -Monitor only for visible signs of discomfort (e.g., dyspnea or anxiety) -Treat with morphine or lorazepam PRN if symptoms arise Code(s): I48.91 - UNSPECIFIED ATRIAL FIBRILLATION (3) CKD (chronic kidney disease) Current Visit: Yes Status: Acute Assessment & Plan: -No labs or electrolyte monitoring -Avoid nephrotoxic medications -Maintain oral comfort (swabs, sips of water) without aggressive hydration Code(s): N18.9 - CHRONIC KIDNEY DISEASE, UNSPECIFIED (4) Type 2 diabetes mellitus Current Visit: Yes Status: Acute Assessment & Plan: -No insulin or oral antihyperglycemics administered -No glucose monitoring unless clinically necessary (e.g., concern for hypoglycemia symptoms) -Watch for symptoms of hypoglycemia: -Treat with dextrose gel PO if alert and symptomatic (5) COPD (chronic obstructive pulmonary disease) Current Visit: Yes Status: Acute Assessment & Plan: -No nebulized or maintenance inhalers unless already on hand and preferred by patient/family -Oxygen PRN for dyspnea -Morphine PRN for air hunger -Elevate head of bed for comfort and ease of breathing (6) MDS (myelodysplastic syndrome) Current Visit: Yes Status: Acute Assessment & Plan: -No transfusions or hematologic interventions -No labs to monitor cytopenias -Monitor for bleeding or bruising: -Provide local measures only if bleeding occurs (gentle pressure, comfort- focused) Code(s): D46.9 - MYELODYSPLASTIC SYNDROME, UNSPECIFIED (7) Osteoarthritis Current Visit: Yes Status: Acute Assessment & Plan: -Morphine PRN for positional discomfort -Frequent repositioning and use of pillows for joint support -No physical therapy or mobility interventions -Passive rrzmi-rw-fpyvan only if tolerated and requested Code(s): M19.90 - UNSPECIFIED OSTEOARTHRITIS, UNSPECIFIED SITE (8) Declining functional status Current Visit: Yes Status: Acute Assessment & Plan: -No interventions to stimulate arousal or cognition -Allow natural progression of disease -Maintain gentle verbal contact if responsive; avoid stimulation if not -Repositioning, mouth care, and bedside presence prioritized Code(s): R53.81 - OTHER MALAISE (9) Decubitus ulcer of back, stage 2 Current Visit: Yes Status: Acute Assessment & Plan: -Assess and document stage and size (if not already done) -No aggressive debridement or wound VAC -Comfort-based wound care: -Clean with saline or gentle cleanser daily -Apply non-adherent, moisture-retentive dressing (e.g., hydrogel or foam) -Use barrier cream to prevent further skin breakdown -Reposition every 2 hours to offload pressure -Pain management with morphine PRN before dressing changes if needed Code(s): L89.102 - PRESSURE ULCER OF UNSPECIFIED PART OF BACK, STAGE 2 (10) CHF (congestive heart failure), NYHA class III Current Visit: Yes Status: Chronic Qualifiers: Congestive heart failure type: combined Congestive heart failure chronicity: chronic Qualified Code(s): I50.42 - Chronic combined systolic (congestive) and diastolic (congestive) heart failure Assessment & Plan: -No IV diuresis or cardiac medications -No echocardiography or cardiac workup planned -Oxygen PRN for dyspnea -Morphine PRN for air hunger or chest discomfort -NPO to avoid volume overload unless patient requests sips Code(s): I50.9 - HEART FAILURE, UNSPECIFIED (11) Comfort measures only status Current Visit: Yes Status: Acute Assessment & Plan: -Hospice admission scheduled for tomorrow -DNR/DNI confirmed -All care focused on comfort and dignity -No labs, imaging, IVs, or monitoring -Morphine 2 mg q2h PRN,Lorazepam 0.5 mg q4h PRN,Acetaminophen 650 mg q6h PRN, Oxygen 2 L/min NC PRN -Discontinue routine vitals unless changes in condition or for comfort assessment -Allow sips of water or ice chips if alert and requesting intake -Family requests jamil cath -Oral care q24h Code(s): Z51.5 - ENCOUNTER FOR PALLIATIVE CARE Code(s): J44.1 - CHRONIC OBSTRUCTIVE PULMONARY DISEASE W (ACUTE) EXACERBATION - Discharge Discharge Date: 03/27/25 ([place]) Disposition: Hospice @ [facility] Condition: Poor Prescriptions: Continue Carvedilol [Coreg ] 6.25 mg PO BID Ondansetron [Ondansetron Odt ] 4 mg PO Q8H PRN PRN PRN Reason: Nausea Glimepiride 2 mg [Amaryl 2 MG] 2 mg PO DAILY Omeprazole 20 mg PO DAILY PRN PRN Reason: heartburn Fluticasone/Umeclidin/Vilanter [Trelegy Ellipta 100-62.5-25] 1 each IH DAILY levalbuterol HCl [Xopenex 1.25 MG/0.5 ML UD NEBULE] 1.25 mg IH DAILY PRN PRN PRN Reason: copd Potassium Chloride 10 meq PO BID Hydrocodone/Acetaminophen [Hydrocodone-Acetamin 10-325 mg] 1 tab PO Q6HPRN PRN PRN Reason: Pain Nystatin Powder 15 gm [Nystop Powder 15 gm] 1 gm TP BID PRN PRN Reason: Mild Pain Tobramycin/Dexamethasone [Tobramycin-Dexameth Ophth Susp] 1 drop OP QID HydrALAzine HCL 25 MG TAB [Apresoline 25 MG TABLET] 50 mg PO QID 30 Days #120 tablet Levothyroxine Sodium 25 Mcg [Synthroid 25 Mcg] 25 mcg PO QAM@0700 30 Days #30 tablet Additional Instructions: [facility] TO ASSUME CARE Follow up with: TRINH MINAYA MD [Primary Care Provider, INTERNAL MEDICINE]
== END 2025-03-27 17:30 | disposition hospice, home (50) ==
LOC: ED 14:57 → MED SURG 16:50
PROVIDERS: ADMIT Internal Medicine; ATTEND Internal Medicine
DX: I63.50 Cerebral infarction due to unspecified occlusion or stenosis of unspecified cerebral artery (principal); I48.91 Unspecified atrial fibrillation; E11.22 Type 2 diabetes mellitus with diabetic chronic kidney disease; I13.0 Hypertensive heart and chronic kidney disease with heart failure and stage 1 through stage 4 chronic kidney disease, or unspecified chronic kidney disease; I50.9 Heart failure, unspecified; N18.4 Chronic kidney disease, stage 4 (severe); Z51.5 Encounter for palliative care; R53.81 Other malaise; L89.102 Pressure ulcer of unspecified part of back, stage 2; D46.9 Myelodysplastic syndrome, unspecified; M19.90 Unspecified osteoarthritis, unspecified site; E03.9 Hypothyroidism, unspecified; J44.1 Chronic obstructive pulmonary disease with (acute) exacerbation; Z79.899 Other long term (current) drug therapy; Z85.828 Personal history of other malignant neoplasm of skin
CPT/HCPCS: 36415; 70450; 80053; 81001; 84134; 85025; 87086; 94760; 99285; 99291; G0378; J2270; P9612